=== PATIENT | male | born 1940 | race Caucasian/White ===

== ENCOUNTER 2019-04-27 10:44 | Outpatient (CLI) | payer MEDICARE, SELFPAY ==
--- NOTE | ~2019-04-27 | US_ITS ---
US venous doppler [facility] DATE: 04/27/2019 15:53 INDICATION: Swelling of the lower extremities. Shortness of breath. TECHNIQUE: Real-time and color flow imaging and Doppler analysis of the veins of the lower extremitie s COMPARISON: None FINDINGS: The greater saphenous veins are patent. There is spontaneous and phasic flow and normal aug mentation and color flow signal and normal compression of the deep veins of both lower extremities. IMPRESSION: No evidence of deep venous thrombosis of the lower extremities Reviewed, dictated and finalized at Location A. Reviewed, dictated and finalized at location B.
[2019-04-27 11:37] LABS: Basophils Absolute Auto 0.1 K/mm3 (0.0-0.1); Basophils Percent Auto 1.2 % (0.2-1.2); Eosinophils Absolute Auto 0.1 K/mm3 (0-0.3); Eosinophils Percent Auto 1.2 % (0-4.4); Hematocrit 22.9 % (42.0-52.0); Hemoglobin 7.4 g/dL (14.0-18.0); Immature Granulocyte Absolute 0.03 K/mm3 (0.00-0.031); Immature Granulocyte Percent A 0.4 % (0-0.5); Lymphocytes Absolute Auto 1.02 K/mm3 (0.9-3.2); Lymphocytes Percent Auto 12.2 % (18.3-44.2); Mean Corpuscular HGB Conc 32.3 g/dl (32-36); Mean Corpuscular Hemoglobin 31.1 pg (26-34); Mean Corpuscular Volume 96.2 fl (80-100); Mean Platelet Volume 9.4 fl (7.4-10.4); Monocytes Absolute Auto 0.7 K/mm3 (0.1-0.6); Monocytes Percent Auto 8.7 % (2.6-8.5); Neutrophils Absolute Auto 6.4 K/mm3 (1.3-6.7); Neutrophils Percent Auto 76.3 % (45.5-73.1); Platelet Count Result 280 k/mm3 (150-375); Red Blood Count 2.38 M/mm3 (4.6-6.20); Red Cell Distribution Width 13.7 % (11.5-14.5); White Blood Count 8.4 K/mm3 (4.5-10.0)
[2019-04-27 11:49] LABS: Alanine Aminotransferase 20 U/L (4-50); Albumin Level 3.1 g/dL (3.5-5.1); Alkaline Phosphatase 65 U/L (38-126); Aspartate Amino Transferase 22 U/L (17-59); Bilirubin,Total 0.4 mg/dL (0.2-1.3); Blood Urea Nitrogen 53 mg/dL (9-20); Calcium 7.8 mg/dL (8.4-10.2); Carbon Dioxide 22 mmol/L (22-30); Chloride 104 mmol/L (98-107); Estimated Glomerular Filt Rate 20; Glucose 125 mg/dL (75-110); Potassium 4.6 mmol/L (3.4-5.0); Sodium 135 mmol/L (137-145)
[2019-04-27 11:50] LABS: D Dimer 3.35 ug/mL (<0.48)
== END 2019-04-27 10:45 | disposition home or self-care (01) ==
PROVIDERS: PCP Physician Assistant; Visit Provider Physician Assistant
DX: M79.89 Other specified soft tissue disorders (principal); I10 Essential (primary) hypertension; D64.9 Anemia, unspecified; K92.2 Gastrointestinal hemorrhage, unspecified
CPT/HCPCS: 36415; 80053; 85025; 85380; 93970

== ENCOUNTER 2019-04-30 10:39 | Outpatient (CLI) | payer MEDICARE, SELFPAY ==
[2019-04-30 10:55] LABS: Basophils Absolute Auto 0.1 K/mm3 (0.0-0.1); Basophils Percent Auto 1.2 % (0.2-1.2); Eosinophils Absolute Auto 0.2 K/mm3 (0-0.3); Eosinophils Percent Auto 2.9 % (0-4.4); Hematocrit 21.9 % (42.0-52.0); Immature Granulocyte Absolute 0.02 K/mm3 (0.00-0.031); Immature Granulocyte Percent A 0.3 % (0-0.5); Lymphocytes Absolute Auto 0.83 K/mm3 (0.9-3.2); Lymphocytes Percent Auto 12.5 % (18.3-44.2); Mean Corpuscular HGB Conc 31.5 g/dl (32-36); Mean Corpuscular Hemoglobin 30.9 pg (26-34); Mean Corpuscular Volume 98.2 fl (80-100); Mean Platelet Volume 9.2 fl (7.4-10.4); Monocytes Absolute Auto 0.5 K/mm3 (0.1-0.6); Monocytes Percent Auto 8.1 % (2.6-8.5); Platelet Count Result 198 k/mm3 (150-375); Red Blood Count 2.23 M/mm3 (4.6-6.20); Red Cell Distribution Width 13.8 % (11.5-14.5); White Blood Count 6.7 K/mm3 (4.5-10.0)
[2019-04-30 11:06] LABS: Hemoglobin 6.9 g/dL (14.0-18.0)
[2019-04-30 11:08] LABS: Alanine Aminotransferase 15 U/L (4-50); Albumin Level 3.2 g/dL (3.5-5.1); Alkaline Phosphatase 57 U/L (38-126); Aspartate Amino Transferase 20 U/L (17-59); Bilirubin,Total 0.3 mg/dL (0.2-1.3); Blood Urea Nitrogen 43 mg/dL (9-20); Calcium 8.3 mg/dL (8.4-10.2); Carbon Dioxide 23 mmol/L (22-30); Chloride 104 mmol/L (98-107); Estimated Glomerular Filt Rate 21; Glucose 146 mg/dL (75-110); Potassium 4.8 mmol/L (3.4-5.0); Sodium 132 mmol/L (137-145)
== END 2019-04-30 10:40 | disposition home or self-care (01) ==
PROVIDERS: PCP Family Medicine; Visit Provider Physician Assistant
DX: D64.9 Anemia, unspecified (principal); I10 Essential (primary) hypertension; N17.9 Acute kidney failure, unspecified
CPT/HCPCS: 36415; 80053; 85025

== ENCOUNTER 2019-06-21 11:28 | Outpatient (CLI) | payer MEDICARE, SELFPAY ==
--- NOTE | ~2019-06-21 | XR_ITS ---
XR chest 2V DATE: 06/21/2019 12:07 INDICATION: Pneumonia TECHNIQUE: PA and lateral views COMPARISON: None FINDINGS: Right shoulder arthroplasty. Normal heart size. There is aortic calcification and mild tortuosity. No hilar or mediastinal enlarge ment. No pulmonary infiltrate or consolidation, pleural effusion or pulmonary vascular congestion or pneumo thorax. Scoliosis and degenerative spurring of the thoracic spine. IMPRESSION: No active cardiopulmonary disease Aortic atherosclerosis Reviewed, dictated and finalized at location A.
[2019-06-21 12:01] LABS: Basophils Absolute Auto 0.1 K/mm3 (0.0-0.1); Eosinophils Absolute Auto 0.4 K/mm3 (0-0.3); Eosinophils Percent Auto 5.2 % (0-4.4); Hemoglobin 8.8 g/dL (14.0-18.0); Immature Granulocyte Absolute 0.02 K/mm3 (0.00-0.031); Immature Granulocyte Percent A 0.3 % (0-0.5); Lymphocytes Absolute Auto 1.12 K/mm3 (0.9-3.2); Lymphocytes Percent Auto 15.4 % (18.3-44.2); Mean Corpuscular HGB Conc 33.8 g/dl (32-36); Mean Corpuscular Volume 97.4 fl (80-100); Mean Platelet Volume 9.1 fl (7.4-10.4); Monocytes Absolute Auto 0.7 K/mm3 (0.1-0.6); Monocytes Percent Auto 9.2 % (2.6-8.5); Neutrophils Percent Auto 68.9 % (45.5-73.1); Platelet Count Result 147 k/mm3 (150-375); Red Blood Count 2.67 M/mm3 (4.6-6.20); Red Cell Distribution Width 13.2 % (11.5-14.5); White Blood Count 7.3 K/mm3 (4.5-10.0)
[2019-06-21 12:19] LABS: Alanine Aminotransferase 40 U/L (4-50); Albumin Level 4.1 g/dL (3.5-5.1); Alkaline Phosphatase 51 U/L (38-126); Aspartate Amino Transferase 30 U/L (17-59); Bilirubin,Total 0.3 mg/dL (0.2-1.3); Blood Urea Nitrogen 46 mg/dL (9-20); Calcium 8.5 mg/dL (8.4-10.2); Carbon Dioxide 23 mmol/L (22-30); Chloride 107 mmol/L (98-107); Estimated Glomerular Filt Rate 19; Glucose 113 mg/dL (75-110); Potassium 4.4 mmol/L (3.4-5.0); Sodium 140 mmol/L (137-145)
[2019-06-21 13:45] LABS: Iron 86 ug/dL (49-181)
[2019-06-21 14:02] LABS: Hemoglobin A1C 5.6 % (<5.7); Percent Iron Saturation 32 % (20-50)
== END 2019-06-21 11:29 | disposition home or self-care (01) ==
LOC: ANHLAB 11:31
PROVIDERS: PCP Family Medicine; Visit Provider Physician Assistant
DX: D50.9 Iron deficiency anemia, unspecified (principal); E11.29 Type 2 diabetes mellitus with other diabetic kidney complication; E11.65 Type 2 diabetes mellitus with hyperglycemia; I12.9 Hypertensive chronic kidney disease with stage 1 through stage 4 chronic kidney disease, or unspecified chronic kidney disease; N18.3 Chronic kidney disease, stage 3 (moderate); J18.9 Pneumonia, unspecified organism; I70.0 Atherosclerosis of aorta
CPT/HCPCS: 36415; 71046; 80053; 82728; 83036; 83540; 83550; 85025

== ENCOUNTER 2019-07-09 08:37 | Outpatient (CLI) | payer MEDICARE, SELFPAY ==
--- NOTE | 2019-07-10 18:36 | WPDPFTINT ---
PFT Interpretation PFT Interpretation: DOS: 07/09/2019 REQUESTING: Santi Roy MD REASON FOR TESTING: dyspnea, cough PULMONARY FUNCTION TESTS Results are reliable and reproducible. Spirometry: FEV1 39%, severely reduced. FVC is 41%, severely reduced. FEV1% is decreased consistent with airflow obstruction. After bronchodilator there is an 18% increase in the FEV1 however the absolute amount of increase is less than 200 ml. Lung volumes: TLC decreased at 75%. Slow vital capacity is larger than forced vital capacity, consistent with dynamic airway collapse. Increased RV/TLC ratio 57% consistent with severe air trapping. Airway resistance is increased 514%. Diffusion: DLCO moderately decreased 56%. Flow volume loop: Restrictive and obstructive features. IMPRESSION: Mixed mild restrictive and severe obstructive processes, severe air trapping, increase airway resistance and moderate diffusion impairment. Lack of response to bronchodilator should not preclude use if clinically indicated. Loreto Christensen MD
== END 2019-07-09 08:38 | disposition home or self-care (01) ==
LOC: ANHPFT 08:40
PROVIDERS: PCP Family Medicine; Visit Provider Family Medicine
DX: R05 Cough (principal); R06.09 Other forms of dyspnea; Z87.891 Personal history of nicotine dependence
CPT/HCPCS: 94060; 94726; 94729

== ENCOUNTER 2019-10-24 10:43 | Outpatient (CLI) | payer MEDICARE, SELFPAY ==
[2019-10-24 11:22] LABS: Basophils Percent Auto 0.6 % (0.2-1.2); Eosinophils Absolute Auto 0.3 K/mm3 (0-0.3); Eosinophils Percent Auto 4.7 % (0-4.4); Hematocrit 24.6 % (42.0-52.0); Hemoglobin 8.5 g/dL (14.0-18.0); Immature Granulocyte Absolute 0.02 K/mm3 (0.00-0.031); Immature Granulocyte Percent A 0.3 % (0-0.5); Lymphocytes Absolute Auto 0.98 K/mm3 (0.9-3.2); Lymphocytes Percent Auto 15.3 % (18.3-44.2); Mean Corpuscular HGB Conc 34.6 g/dl (32-36); Mean Corpuscular Hemoglobin 33.3 pg (26-34); Mean Corpuscular Volume 96.5 fl (80-100); Mean Platelet Volume 8.8 fl (7.4-10.4); Monocytes Absolute Auto 0.7 K/mm3 (0.1-0.6); Monocytes Percent Auto 10.6 % (2.6-8.5); Neutrophils Absolute Auto 4.4 K/mm3 (1.3-6.7); Neutrophils Percent Auto 68.5 % (45.5-73.1); Platelet Count Result 140 k/mm3 (150-375); Red Blood Count 2.55 M/mm3 (4.6-6.20); Red Cell Distribution Width 11.9 % (11.5-14.5); White Blood Count 6.4 K/mm3 (4.5-10.0)
[2019-10-24 11:30] LABS: Hemoglobin A1C 6.2 % (<5.7)
[2019-10-24 11:36] LABS: Alanine Aminotransferase 22 U/L (4-50); Albumin Level 4.2 g/dL (3.5-5.1); Alkaline Phosphatase 55 U/L (38-126); Anion Gap 8 mmol/L (8-16); Aspartate Amino Transferase 21 U/L (17-59); Bilirubin,Total 0.5 mg/dL (0.2-1.3); Blood Urea Nitrogen 55 mg/dL (9-20); Calcium 8.6 mg/dL (8.4-10.2); Carbon Dioxide 22 mmol/L (22-30); Chloride 107 mmol/L (98-107); Estimated Glomerular Filt Rate 21; Glucose 111 mg/dL (75-110); Potassium 4.9 mmol/L (3.4-5.0); Sodium 137 mmol/L (137-145)
[2019-10-24 11:46] LABS: Iron 94 ug/dL (49-181)
[2019-10-24 11:55] LABS: Percent Iron Saturation 34 % (20-50)
== END 2019-10-24 10:44 | disposition home or self-care (01) ==
PROVIDERS: PCP Family Medicine; Visit Provider Physician Assistant
DX: D50.9 Iron deficiency anemia, unspecified (principal); E11.65 Type 2 diabetes mellitus with hyperglycemia; I12.9 Hypertensive chronic kidney disease with stage 1 through stage 4 chronic kidney disease, or unspecified chronic kidney disease; N18.3 Chronic kidney disease, stage 3 (moderate)
CPT/HCPCS: 36415; 80053; 82728; 83036; 83540; 83550; 85025

== ENCOUNTER 2019-12-08 01:43 | Outpatient (CLI) | payer MEDICARE, SELFPAY ==
[2019-12-08 22:13] LABS: SARS-CoV-2 RNA PCR Negative
== END 2019-12-08 01:44 | disposition home or self-care (01) ==
LOC: ANHCOVIDDT 01:44
PROVIDERS: PCP Family Medicine; Visit Provider Internal Medicine Gastroenterology
DX: Z01.812 Encounter for preprocedural laboratory examination (principal); Z20.828 Contact with and (suspected) exposure to other viral communicable diseases
CPT/HCPCS: 87635; C9803; U0003

== ENCOUNTER 2019-12-11 00:42 | Day surgery (SDC) | payer MEDICARE, SELFPAY ==
[2019-12-04 14:04] VITALS: BMI 35.9
[2019-12-11 13:08] VITALS: BP 166/62; PULSE 78; RESP 22; TEMP 36.7; O2SAT 98; BMI 34.9
--- NOTE | 2019-12-11 13:19 | WPDANESEPPF ---
Anes - Initial Pre Proc Eval Procedure: Operation Date: 12/11/19 13:45 Proposed Procedures p Esophagogastroduodenoscopy & Colonoscopy - Aaron Lopez MD Date/Time: 12/11/19 13:19 Surgeon: Aaron Lopez MD Pre Op Diagnosis: Anemia, Ulcer Patient Data Age: 79 Gender: M Height: 1.78 m Weight: 110.5 kg Last Vital Signs Temp 36.7 C 12/11/19 13:08 Pulse 78 12/11/19 13:08 Resp 22 H 12/11/19 13:08 BP 166/62 H 12/11/19 13:08 Pulse Ox 98 12/11/19 13:08 Allergies Allergy/AdvReac Type Severity Reaction Status Date / Time No Known Allergies Allergy Verified 12/11/19 13:06 Home Medications Medication Instructions Recorded Confirmed Type amlodipine 5 mg tablet 10 mg PO DAILY 02/13/19 12/04/19 History carvedilol 12.5 mg tablet 12.5 mg PO Q12H 04/27/19 12/04/19 History furosemide 20 mg tablet 20 mg PO QAM 04/27/19 12/04/19 History latanoprost 0.005 % eye drops 1 drop EACH EYE QPM 04/27/19 12/04/19 History atorvastatin 20 mg tablet 20 mg PO DAILY #90 tablet 06/18/19 12/04/19 Rx clonidine HCl 0.1 mg tablet 0.1 mg PO BID #180 tablet 06/18/19 12/04/19 Rx insulin glargine 100 unit/mL (3 10 unit SUB-Q .qhs #15 ml 07/11/19 12/04/19 Rx mL) subcutaneous pen pen needle, diabetic, safety 30 #100 each 07/11/19 12/04/19 Rx gauge x 5/16 fluticasone fur. 100 mcg-umeclid 1 inhalation INHALATION DAILY #90 08/01/19 12/04/19 Rx 62.5 mcg-vilant 25 mcg each inhalat.powder chlorthalidone 25 mg tablet 25 mg PO DAILY #90 tablet 09/24/19 12/04/19 Rx pantoprazole 40 mg tablet,delayed 40 mg PO BID #180 tablet 10/08/19 12/04/19 Rx release metolazone 5 mg tablet 5 mg PO DAILY #90 tablet 10/24/19 12/04/19 Rx albuterol sulfate 90 mcg/actuation 1 inhalation INHALATION Q4-6H PRN 10/30/19 12/04/19 Rx aerosol inhaler #18 gm tramadol 37.5 mg-acetaminophen 325 1 tablet PO Q6H PRN #360 tablet 11/16/19 12/04/19 Rx mg tablet losartan 100 mg tablet 100 mg PO DAILY #90 tablet 11/20/19 12/04/19 Rx peg 3350-electrolytes 236 240 ml PO Q10M #4000 ml 11/26/19 12/04/19 Rx gram-22.74 gram-6.74 gram-5.86 gram solution alprazolam [Xanax] 0.5 mg PO BID PRN 12/11/19 12/04/19 History Patient hx anesthesia problems: none Family hx anesthesia problems: none PMFSH Past Medical History Medical History (Updated 12/11/19 @ 13:22 by Daniel Concepcion MD) Adenomatous colon polyp Anemia Anxiety Chronic obstructive pulmonary disease CKD (chronic kidney disease) stage 3, GFR 30-59 ml/min DM renal manif type II, uncontrolled Hyperlipidemia BETTE (iron deficiency anemia) Obese SALOME (obstructive sleep apnea) Paroxysmal A-fib Peptic ulcer disease Primary osteoarthritis, unspecified site Type 2 diabetes mellitus with hyperglycemia, without long-term current use of insulin Family History Family History Mother Diabetes mellitus Family history of cardiovascular disease Father Family history of lung cancer Social History Social History Social History: Smoking packs per day: 1.5 Smoking cigarettes per day: 30.0 Years smoked: 50 Smoking pack-years: 75.00 Smoking status: Former smoker Tobacco type: cigarettes Second hand tobacco smoke exposure: No Smoking end date: 02/08/96 Alcohol intake: unknown Substance use: never Substance use type: does not use Living arrangements: with family Gender identity (if verbalized by the patient): Male Spiritual care concerns: No Anes - Eval Final PreProcedure Day of Procedure 12/11/19 13:19 Patient weight: obese Heart: regular rate and rhythm Lungs: clear to auscultation and normal air movement Airway: Mallampati scale class II Neurological: alert and oriented Last oral intake: >/= 8 hours ASA classification: III Emergent: no Anesthetic plan: proceed Anesthesia type and monitoring: general GIVS Informed Consent: Th
[2019-12-11] MEDS: LACTATED RINGERS 1,000 ML 150 ML IV CONT (13:25)
[2019-12-11 13:35] LABS: Glucose Point of Care 117 (65-105)
--- NOTE | 2019-12-11 13:58 | PM.HPGS ---
History of Present Illness History of Present Illness Consent: Risks, benefits, and alternatives have been discussed and questions answered. Patient agrees to proceed with procedure. Chief complaint: Anemia, Ulcer Narrative: Leobardo Reyes is a 79 year old male had gib 04/2019 due to duodenal ulcer treated endoscopically, h/o colon polyps 2017. He still has anemia but no overt gib Review of Systems Constitutional: Constitutional: Denies headache(s) and Denies weakness Eyes: Eyes: Denies blurry vision ENT: Reports Normal hearing present, Denies headache(s) and Denies neck pain Cardiovascular: Cardiovascular: Denies chest pain and Denies dyspnea Respiratory: Respiratory: Denies dyspnea Gastrointestinal: Gastrointestinal: Reports no additional gastrointestinal complaints Genitourinary: Genitourinary: Denies dysuria Musculoskeletal: Musculoskeletal: Denies neck pain Integumentary/Breasts: Skin/Breast: Denies dry skin Neurologic: Reports Normal hearing present, Denies headache(s) and Denies weakness Psychiatric: Psychiatric: Denies anxiety Endocrine: Endocrine: Denies change in body appearance Hematologic/Lymphatic: Hematologic/Lymphatic: Denies easy bleeding Allergic/Immunologic: Allergic/Immunologic: Denies urticaria PMFSH Past Medical History Medical History (Updated 12/11/19 @ 13:22 by Daniel Concepcion MD) Adenomatous colon polyp Anemia Anxiety Chronic obstructive pulmonary disease CKD (chronic kidney disease) stage 3, GFR 30-59 ml/min DM renal manif type II, uncontrolled Hyperlipidemia BETTE (iron deficiency anemia) Obese SALOME (obstructive sleep apnea) Paroxysmal A-fib Peptic ulcer disease Primary osteoarthritis, unspecified site Type 2 diabetes mellitus with hyperglycemia, without long-term current use of insulin Family History Family History Mother Diabetes mellitus Family history of cardiovascular disease Father Family history of lung cancer Social History Social History Social History: Smoking packs per day: 1.5 Smoking cigarettes per day: 30.0 Years smoked: 50 Smoking pack-years: 75.00 Smoking status: Former smoker Tobacco type: cigarettes Second hand tobacco smoke exposure: No Smoking end date: 02/08/96 Alcohol intake: unknown Substance use: never Substance use type: does not use Living arrangements: with family Gender identity (if verbalized by the patient): Male Spiritual care concerns: No Meds Home Medications and Allergies Home Medications Medication Instructions Recorded Confirmed Type amlodipine 5 mg tablet 10 mg PO DAILY 02/13/19 12/04/19 History carvedilol 12.5 mg tablet 12.5 mg PO Q12H 04/27/19 12/04/19 History furosemide 20 mg tablet 20 mg PO QAM 04/27/19 12/04/19 History latanoprost 0.005 % eye drops 1 drop EACH EYE QPM 04/27/19 12/04/19 History atorvastatin 20 mg tablet 20 mg PO DAILY #90 tablet 06/18/19 12/04/19 Rx clonidine HCl 0.1 mg tablet 0.1 mg PO BID #180 tablet 06/18/19 12/04/19 Rx insulin glargine 100 unit/mL (3 10 unit SUB-Q .qhs #15 ml 07/11/19 12/04/19 Rx mL) subcutaneous pen pen needle, diabetic, safety 30 #100 each 07/11/19 12/04/19 Rx gauge x 5/16 fluticasone fur. 100 mcg-umeclid 1 inhalation INHALATION DAILY #90 08/01/19 12/04/19 Rx 62.5 mcg-vilant 25 mcg each inhalat.powder chlorthalidone 25 mg tablet 25 mg PO DAILY #90 tablet 09/24/19 12/04/19 Rx pantoprazole 40 mg tablet,delayed 40 mg PO BID #180 tablet 10/08/19 12/04/19 Rx release metolazone 5 mg tablet 5 mg PO DAILY #90 tablet 10/24/19 12/04/19 Rx albuterol sulfate 90 mcg/actuation 1 inhalation INHALATION Q4-6H PRN 10/30/19 12/04/19 Rx aerosol inhaler #18 gm tramadol 37.5 mg-acetaminophen 325 1 tablet PO Q6H PRN #360 tablet 11/16/19 12/04/19 Rx mg tablet losartan 100 mg tablet 100 mg PO DAILY #90 tablet 11/20/19 12/04/19 Rx peg [id number]
[2019-12-11 14:30] VITALS: BP 121/47; PULSE 69; RESP 19; O2SAT 99
[2019-12-11 14:40] VITALS: BP 124/58; PULSE 65; RESP 18; O2SAT 100
[2019-12-11 14:43] LABS: Glucose Point of Care 104 (65-105)
[2019-12-11 14:50] VITALS: BP 150/57; PULSE 67; RESP 16; O2SAT 100
== END 2019-12-11 15:24 | disposition home or self-care (01) ==
PROVIDERS: PCP Family Medicine; Visit Provider Internal Medicine Gastroenterology
PROC: 0DJ08ZZ Inspection of Upper Intestinal Tract, Via Natural or Artificial Opening Endoscopic (ICD-10-PCS; CPT 43235; principal; 2019-12-11 13:45)
DX: D50.9 Iron deficiency anemia, unspecified (principal); D12.2 Benign neoplasm of ascending colon; K57.30 Diverticulosis of large intestine without perforation or abscess without bleeding; K29.70 Gastritis, unspecified, without bleeding; E11.22 Type 2 diabetes mellitus with diabetic chronic kidney disease; N18.30 Chronic kidney disease, stage 3 unspecified; E78.5 Hyperlipidemia, unspecified; G47.33 Obstructive sleep apnea (adult) (pediatric); I48.0 Paroxysmal atrial fibrillation; Z87.11 Personal history of peptic ulcer disease; F41.9 Anxiety disorder, unspecified; J44.9 Chronic obstructive pulmonary disease, unspecified; Z79.4 Long term (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 of insulin; Z87.891 Personal history of nicotine dependence; E66.9 Obesity, unspecified; Z68.35 Body mass index [BMI] 35.0-35.9, adult
CPT/HCPCS: 45381; 45385; 43239; 88305; 99212; G0463; J2001; J2704; J7120

== ENCOUNTER 2020-02-21 11:53 | Outpatient (CLI) | payer MEDICARE, SELFPAY ==
[2020-02-21 12:45] LABS: Basophils Absolute Auto 0.1 K/mm3 (0.0-0.1); Eosinophils Absolute Auto 0.2 K/mm3 (0-0.3); Eosinophils Percent Auto 2.9 % (0-4.4); Hematocrit 27.5 % (42.0-52.0); Hemoglobin 9.4 g/dL (14.0-18.0); Immature Granulocyte Absolute 0.03 K/mm3 (0.00-0.031); Immature Granulocyte Percent A 0.4 % (0-0.5); Lymphocytes Absolute Auto 0.93 K/mm3 (0.9-3.2); Lymphocytes Percent Auto 12.7 % (18.3-44.2); Mean Corpuscular HGB Conc 34.2 g/dl (32-36); Mean Corpuscular Hemoglobin 34.4 pg (26-34); Mean Corpuscular Volume 100.7 fl (80-100); Mean Platelet Volume 9.3 fl (7.4-10.4); Monocytes Absolute Auto 0.6 K/mm3 (0.1-0.6); Monocytes Percent Auto 8.4 % (2.6-8.5); Neutrophils Absolute Auto 5.5 K/mm3 (1.3-6.7); Neutrophils Percent Auto 74.6 % (45.5-73.1); Platelet Count Result 193 k/mm3 (150-375); Red Blood Count 2.73 M/mm3 (4.6-6.20); Red Cell Distribution Width 13.6 % (11.5-14.5); White Blood Count 7.3 K/mm3 (4.5-10.0)
[2020-02-21 12:56] LABS: Hemoglobin A1C 6.5 % (<5.7)
[2020-02-21 12:58] LABS: Alanine Aminotransferase 21 U/L (4-50); Alkaline Phosphatase 60 U/L (38-126); Anion Gap 10 mmol/L (8-16); Aspartate Amino Transferase 21 U/L (17-59); Bilirubin,Total 0.5 mg/dL (0.2-1.3); Blood Urea Nitrogen 41 mg/dL (9-20); Calcium 8.6 mg/dL (8.4-10.2); Carbon Dioxide 23 mmol/L (22-30); Chloride 107 mmol/L (98-107); Estimated Glomerular Filt Rate 20; Glucose 153 mg/dL (75-110); Potassium 4.4 mmol/L (3.4-5.0); Sodium 140 mmol/L (137-145)
== END 2020-02-21 11:54 | disposition home or self-care (01) ==
PROVIDERS: PCP Family Medicine; Visit Provider Physician Assistant
DX: D50.9 Iron deficiency anemia, unspecified (principal); E11.29 Type 2 diabetes mellitus with other diabetic kidney complication; E11.65 Type 2 diabetes mellitus with hyperglycemia; N18.30 Chronic kidney disease, stage 3 unspecified
CPT/HCPCS: 36415; 80053; 83036; 85025

== ENCOUNTER 2020-02-29 15:29 | Outpatient (CLI) | payer MEDICARE, SELFPAY ==
[2020-02-29 16:15] LABS: Hematocrit 28.4 % (42.0-52.0); Hemoglobin 9.5 g/dL (14.0-18.0); Mean Corpuscular HGB Conc 33.5 g/dl (32-36); Mean Corpuscular Hemoglobin 34.5 pg (26-34); Mean Corpuscular Volume 103.3 fl (80-100); Mean Platelet Volume 9.2 fl (7.4-10.4); Platelet Count Result 169 k/mm3 (150-375); Red Blood Count 2.75 M/mm3 (4.6-6.20); Red Cell Distribution Width 13.2 % (11.5-14.5); White Blood Count 6.6 K/mm3 (4.5-10.0)
== END 2020-02-29 15:30 | disposition home or self-care (01) ==
LOC: ANHLAB 15:31
PROVIDERS: PCP Family Medicine; Referring Provider Internal Medicine Nephrology; Visit Provider Nurse Practitioner Adult Health
DX: Z87.19 Personal history of other diseases of the digestive system (principal)
CPT/HCPCS: 36415; 85027

== ENCOUNTER → 2020-03-03 15:29 | Outpatient (CLI) | payer MEDICARE, SELFPAY ==
[2020-03-03 18:26] LABS: SARS-CoV-2 RNA PCR Negative
== END ==
PROVIDERS: PCP Family Medicine; Visit Provider Internal Medicine Cardiovascular Disease
DX: Z01.812 Encounter for preprocedural laboratory examination (principal); Z20.822 Contact with and (suspected) exposure to COVID-19
CPT/HCPCS: C9803; U0003; U0005

== ENCOUNTER 2020-03-05 12:01 | Outpatient (CLI) | payer MEDICARE, SELFPAY ==
--- NOTE | ~2020-03-05 | US_ITS ---
EXAMINATION: US renal BI EXAM DATE: 03/05/2020 13:22 INDICATION: Chronic kidney disease. TECHNIQUE: Multiple grayscale and Doppler images of the kidneys were obtained (by a technologist who performed the scan) and subsequently reviewed. There is no prior study for comparison. FINDINGS: There is bilateral renal cortical thinning. Right kidney: There is normal contour and echogenicity. It measures 11.1 x 5.8 x 6.0 centimeters. T here are no focal renal lesions identified. There is no hydronephrosis. Left kidney: There is normal contour and echogenicity. It measures 11.2 x 5.1 x 5.7 centimeters. Th ere are no focal renal lesions identified. There is no hydronephrosis. Bladder unremarkable. Prostate is normal in size. IMPRESSION: Bilateral renal cortical thinning. Reviewed, dictated and finalized at location A. PROCESS OPERATOR
[2020-03-05 12:43] LABS: Hematocrit 29.9 % (42.0-52.0); Hemoglobin 9.9 g/dL (14.0-18.0); Mean Corpuscular HGB Conc 33.1 g/dl (32-36); Mean Corpuscular Hemoglobin 34.1 pg (26-34); Mean Corpuscular Volume 103.1 fl (80-100); Mean Platelet Volume 9.5 fl (7.4-10.4); Platelet Count Result 166 k/mm3 (150-375); Red Cell Distribution Width 13.1 % (11.5-14.5); White Blood Count 9.1 K/mm3 (4.5-10.0)
[2020-03-05 13:02] LABS: Add Urine Microscopic? NO; Appearance Urine Clear (Clear); Bilirubin Urine Negative (Negative); Blood Urine Negative (Negative); Color Urine Yellow (Yellow); Glucose Urine UA Negative (Negative); Ketones Urine Negative (Negative); Leukocyte Esterase Ur Negative LEU/UL (Negative); Nitrate Urine Negative (Negative); Protein Urine Negative (Negative); Specific Grav Ur 1.012 (1.001-1.035); Urobilinogen Urine Negative mg/dL (<2.0)
[2020-03-05 13:35] LABS: Albumin Level 4.1 g/dL (3.5-5.1); Anion Gap 9 mmol/L (8-16); Blood Urea Nitrogen 59 mg/dL (9-20); Calcium 8.5 mg/dL (8.4-10.2); Carbon Dioxide 27 mmol/L (22-30); Chloride 102 mmol/L (98-107); Estimated Glomerular Filt Rate 16; Glucose 171 mg/dL (75-110); Phosphorus 4.6 mg/dL (2.5-4.5); Potassium 5.1 mmol/L (3.4-5.0); Sodium 138 mmol/L (137-145); Uric Acid 11.9 mg/dL (3.5-8.5)
[2020-03-05 13:43] LABS: Parathyroid Intact 367.9 pg/mL (7.5-53.5)
[2020-03-05 14:33] LABS: Creatinine Urine 75.1 mg/dL
[2020-03-05 14:38] LABS: MALB Creatinine Ratio 62.1 mg/g (0-30); Microalbumin Urine Random 46.6 mg/L (0-16.7)
[2020-03-10 20:59] LABS: Alpha 1 Globulin 0.3 g/dL (0.2-0.3); Alpha 2 Globulin 0.8 g/dL (0.5-0.9); Beta 1 Globulin 0.4 g/dL (0.4-0.6); Gamma Globulin 0.9 g/dL (0.8-1.7); Protein, Total 6.7 g/dL (6.1-8.1)
== END 2020-03-05 12:02 | disposition home or self-care (01) ==
PROVIDERS: PCP Family Medicine; Visit Provider Internal Medicine Nephrology
DX: N18.4 Chronic kidney disease, stage 4 (severe) (principal)
CPT/HCPCS: 36415; 76775; 80069; 81003; 82043; 83970; 84155; 84165; 84550; 85027; 86334

== ENCOUNTER 2020-03-06 00:59 | Day surgery (SDC) | payer MEDICARE, SELFPAY ==
[2020-03-05 14:28] VITALS: BMI 37.9
[2020-03-05 14:43] VITALS: BP 100/64; PULSE 100; RESP 15; O2SAT 94
[2020-03-06] VITALS (9 sets, daily range): BP systolic 97–121; BP diastolic 63–97; PULSE 98–131; RESP 10–18; TEMP 36.8; O2SAT 97–98; BMI 37.9
--- NOTE | 2020-03-06 10:00 | ECG_ITS ---
Measurements Intervals [place] Rate: 120 P: DC: 0 QRS: 56 QRSD: 97 T: -4 QT: 323 QTc: 457 Interpretive Statements ATRIAL FIBRILLATION WITH RAPID VENTRICULAR RESPONSE BORDERLINE ST-T WAVE ABNORMALITY- INFERIOR LEADS ABNORMAL ECG Electronically Signed On 03-06-2020 11:45:25 HAND STAPLER by Michael Mccabe D.O.
[2020-03-06 11:28] LABS: Hematocrit 28.7 % (42.0-52.0); Hemoglobin 9.8 g/dL (14.0-18.0); Mean Corpuscular HGB Conc 34.1 g/dl (32-36); Mean Corpuscular Volume 102.5 fl (80-100); Mean Platelet Volume 9.1 fl (7.4-10.4); Platelet Count Result 145 k/mm3 (150-375); Red Cell Distribution Width 13.1 % (11.5-14.5); White Blood Count 8.7 K/mm3 (4.5-10.0)
[2020-03-06 11:41] LABS: Anion Gap 6 mmol/L (8-16); Blood Urea Nitrogen 58 mg/dL (9-20); Calcium 8.8 mg/dL (8.4-10.2); Carbon Dioxide 24 mmol/L (22-30); Chloride 108 mmol/L (98-107); Estimated CRCL calculation 19 ml/min; Estimated Glomerular Filt Rate 16; Glucose 89 mg/dL (75-110); Magnesium 1.7 mg/dL (1.6-2.3); Potassium 4.6 mmol/L (3.4-5.0); Sodium 138 mmol/L (137-145)
--- NOTE | 2020-03-06 11:45 | WPDMODSED ---
Moderate Sedation Note-Pt Data Patient Data Diagnosis: Atrial fibrillation Present Complaint: Atrial fibrillation Procedure to be performed/Plan: 1. Multiplanar transesophageal echocardiography with color-flow pulse-wave Doppler 2. Moderate sedation 3. Electrical cardioversion Allergies Allergy/AdvReac Type Severity Reaction Status Date / Time No Known Allergies Allergy Verified 03/05/20 14:18 Home Medications Medication Instructions Recorded Confirmed Type furosemide 20 mg tablet 20 mg PO QAM 04/27/19 03/05/20 History latanoprost 0.005 % eye drops 1 drop EACH EYE QPM 04/27/19 03/05/20 History atorvastatin 20 mg tablet 20 mg PO DAILY #90 tablet 06/18/19 03/05/20 Rx clonidine HCl 0.1 mg tablet 0.1 mg PO BID #180 tablet 06/18/19 03/05/20 Rx insulin glargine 100 unit/mL (3 10 unit SUB-Q .qhs #15 ml 07/11/19 03/05/20 Rx mL) subcutaneous pen pen needle, diabetic, safety 30 #100 each 07/11/19 03/05/20 Rx gauge x 5/16 fluticasone fur. 100 mcg-umeclid 1 inhalation INHALATION DAILY #90 08/01/19 03/05/20 Rx 62.5 mcg-vilant 25 mcg each inhalat.powder chlorthalidone 25 mg tablet 25 mg PO DAILY #90 tablet 09/24/19 03/05/20 Rx metolazone 5 mg tablet 5 mg PO DAILY #90 tablet 10/24/19 03/05/20 Rx albuterol sulfate 90 mcg/actuation 1 inhalation INHALATION Q4-6H PRN 10/30/19 03/05/20 Rx aerosol inhaler #18 gm losartan 100 mg tablet 100 mg PO DAILY #90 tablet 11/20/19 03/05/20 Rx pantoprazole 40 mg tablet,delayed 40 mg PO BID #180 tablet 12/26/19 03/05/20 Rx release amlodipine 10 mg tablet 10 mg PO DAILY #90 tablet 01/07/20 03/05/20 Rx alprazolam 0.5 mg tablet 0.5 mg PO BID PRN #60 tablet 02/21/20 03/05/20 Rx tramadol 37.5 mg-acetaminophen 325 1 tablet PO Q6H PRN #360 tablet 02/21/20 03/05/20 Rx mg tablet metoprolol succinate 50 mg PO DAILY 03/05/20 03/05/20 History Current Medications: Active Medications Sodium Chloride (Normal Saline Iv) 1,000 mls @ 30 mls/hr IV CONT .Q24H FAISAL Sedation/Anesthesia: No previous sedation/anesthesia problems (including family history). [facility] Past Medical History Medical History Adenomatous colon polyp Anemia Chronic obstructive pulmonary disease CKD (chronic kidney disease) stage 3, GFR 30-59 ml/min DM renal manif type II, uncontrolled Hyperlipidemia BETTE (iron deficiency anemia) Obese SALOME (obstructive sleep apnea) Paroxysmal A-fib Peptic ulcer disease Primary osteoarthritis, unspecified site Type 2 diabetes mellitus with hyperglycemia, without long-term current use of insulin Family History Family History Mother Diabetes mellitus Family history of cardiovascular disease Father Family history of lung cancer Social History Social History Social History: Smoking packs per day: 1.5 Smoking cigarettes per day: 30.0 Years smoked: 50 Smoking pack-years: 75.00 Smoking status: Never smoker Tobacco type: cigarettes Second hand tobacco smoke exposure: No Smoking end date: 02/08/96 Alcohol intake: unknown Substance use: never Substance use type: does not use Living arrangements: with family Gender identity (if verbalized by the patient): Male Spiritual care concerns: No Mod Sed Physical Exam Physical Exam Pre Procedural Exam: Normal: Appearance, Eyes, Ears, Nose, Neck, Throat, Airway, Lungs, Heart Size, Neuro Exam, Abdomen, Extremities and Skin and Variation: Heart Rate (Tachycardic) and Heart Rhythm (Irregularly irregular) Hours since solid foods: 12 Hours since liquid intake: 12 Internal Medicine - PN: Obj Da Vital Signs Vital Signs: Vital Signs - 24 hr 03/06/20 11:00 Temperature 36.8 C Pulse Rate 117 H Respiratory Rate 15 Blood Pressure 102/66 Pulse Oximetry 98 Meds/Results Medications: Active Medications Generic Name Dose Route Start Last Admi
--- NOTE | 2020-03-06 12:24 | WPDTEECHO ---
[facility] TransEsophageal Echocardiogram Date of procedure: 03/06/20 Procedure Type: 1. Multiplanar transesophageal echocardiography with color flow and pulse wave Doppler 2. Moderate sedation Diagnosis: Atrial fibrillation Indications: Atrial fibrillation Image Quality: Good Findings: After discussing the risks, benefits alternatives of the procedure the patient agreeable via verbal and written informed consent. Risks discussed included esophageal rupture perforation, need for emergency surgery, , stroke, bleeding, pain, infection, skin irritation or burn. After establishing continuous telemetry monitoring, pulse oxygenation and serial blood pressure assessments, time-out was taken and the procedure was initiated. Procedure start time 12:00 p.m. Procedure stop time 12:10 p.m. Medications given 4 mg of Versed and 50 mcg of fentanyl given in divided dosages Medications were administered patient was monitored by Diana Law RN Complications: None Blood loss: None Findings: Normal left ventricular size and function ejection fraction 50-55%. LVH is seen. Mild left atrial enlargement. Normal right atrial size. Normal right ventricular size and function. Tricuspid valve appears normal. Mitral valve also appears normal with mild to moderate mitral regurgitation. The aortic valve is trileaflet and is normal with trivial aortic insufficiency. Pulmonic valve is normal. No pericardial effusion. Aortic root is normal in size measuring 3.3 cm. Pulse wave Doppler of the left atrial appendage shows velocities of 75 centimeters/second. At the tip of the left atrial appendage there is a small hypermobility. In some views it does look like a small thrombus with similar echogenicity of the thrombus however cannot exclude a pectinate muscle. Regardless though, decision was made at that point to abort cardioversion and procedure was stopped. Conclusions: 1. Ejection fraction 50-55% with LVH seen 2. Left atrial enlargement 3. Odle-wk-enhbcelm mitral regurgitation 4. Possible left atrial appendage thrombus 5. Moderate sedation Plan: Continue anticoagulation. Will have him continue his current medication regimen without change and I will have him be rescheduled for outpatient elective cardioversion only in 3 weeks.
== END 2020-03-06 13:25 | disposition home or self-care (01) ==
PROVIDERS: PCP Family Medicine; Visit Provider Internal Medicine Cardiovascular Disease
PROC: (CPT 93312; principal; 2020-03-06 11:30)
DX: I48.91 Unspecified atrial fibrillation (principal); I34.0 Nonrheumatic mitral (valve) insufficiency; R93.1 Abnormal findings on diagnostic imaging of heart and coronary circulation; J44.9 Chronic obstructive pulmonary disease, unspecified; E11.22 Type 2 diabetes mellitus with diabetic chronic kidney disease; N18.30 Chronic kidney disease, stage 3 unspecified; E78.5 Hyperlipidemia, unspecified; G47.33 Obstructive sleep apnea (adult) (pediatric); D64.9 Anemia, unspecified; K27.9 Peptic ulcer, site unspecified, unspecified as acute or chronic, without hemorrhage or perforation; E66.9 Obesity, unspecified; Z68.38 Body mass index [BMI] 38.0-38.9, adult; Z79.4 Long term (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 of insulin; Z87.891 Personal history of nicotine dependence
CPT/HCPCS: 36415; 80048; 83735; 85027; 93005; 93312; 93320; 93325; C9803; J2250; J3010; J7030; U0003; U0005

== ENCOUNTER → 2020-03-24 01:52 | Outpatient (CLI) | payer MEDICARE, SELFPAY ==
[2020-03-24 19:35] LABS: SARS-CoV-2 RNA PCR Negative
== END ==
PROVIDERS: PCP Family Medicine; Visit Provider Internal Medicine Cardiovascular Disease
DX: Z01.812 Encounter for preprocedural laboratory examination (principal); Z20.822 Contact with and (suspected) exposure to COVID-19
CPT/HCPCS: C9803; U0003; U0005

== ENCOUNTER 2020-03-27 00:35 | Day surgery (SDC) | payer MEDICARE, SELFPAY ==
[2020-03-26 15:28] VITALS: BMI 36.2
[2020-03-27] VITALS (8 sets, daily range): BP systolic 96–120; BP diastolic 53–77; PULSE 57–107; RESP 14–17; TEMP 36.4; O2SAT 94–100; BMI 36.2
--- NOTE | 2020-03-27 07:00 | ECG_ITS ---
Measurements Intervals [place] Rate: 107 P: [place]: 0 QRS: 48 QRSD: 109 T: -4 QT: 359 QTc: 481 Interpretive Statements ATRIAL FIBRILLATION WITH RAPID VENTRICULAR RESPONSE VENTRICULAR PREMATURE COMPLEX NONSPECIFIC T-WAVE ABNORMALITY- INFERIOR LEADS BASELINE ARTIFACT- V1-V2, V5 ABNORMAL ECG Electronically Signed On 03-27-2020 9:10:10 SENIOR SYSTEM OPERATOR by Michael Mccabe D.O.
--- NOTE | 2020-03-27 08:29 | WPDHPUPDATE1 ---
History and Physical Update Update Date/Time: 03/27/20 08:29 History and Physical has been reviewed, including an updated exam of the patient. There are NO changes in the patient's condition. Risks, benefits, and alternatives have been discussed and questions answered. Patient agrees to proceed with procedure. Subjective: Patient has not missed any doses of Xarelto. He feels okay. Has no chest pain but has some dyspnea with exertion. Mild swelling remains Objective: Cardiovascular: Irregular irregular rhythm Lungs clear to auscultation bilateral Extremities 1+ bilateral lower extremity edema Assessment: Atrial fibrillation Plan: Elective cardioversion Moderate sedation
--- NOTE | 2020-03-27 08:31 | WPDMODSED ---
Moderate Sedation Note-Pt Data Patient Data Diagnosis: Atrial fibrillation Present Complaint: Atrial fibrillation Procedure to be performed/Plan: 1. Elective cardioversion 2. Moderate sedation Allergies Allergy/AdvReac Type Severity Reaction Status Date / Time No Known Allergies Allergy Verified 03/05/20 14:18 Home Medications Medication Instructions Recorded Confirmed Type furosemide 20 mg tablet 20 mg PO QAM 04/27/19 03/05/20 History latanoprost 0.005 % eye drops 1 drop EACH EYE QPM 04/27/19 03/05/20 History atorvastatin 20 mg tablet 20 mg PO DAILY #90 tablet 06/18/19 03/05/20 Rx pen needle, diabetic, safety 30 #100 each 07/11/19 03/05/20 Rx gauge x / fluticasone fur. 100 mcg-umeclid 1 inhalation INHALATION DAILY #90 08/01/19 03/05/20 Rx 62.5 mcg-vilant 25 mcg each inhalat.powder chlorthalidone 25 mg tablet 25 mg PO DAILY #90 tablet 09/24/19 03/05/20 Rx metolazone 5 mg tablet 5 mg PO DAILY #90 tablet 10/24/19 03/05/20 Rx albuterol sulfate 90 mcg/actuation 1 inhalation INHALATION Q4-6H PRN 10/30/19 03/05/20 Rx aerosol inhaler #18 gm losartan 100 mg tablet 100 mg PO DAILY #90 tablet 11/20/19 03/05/20 Rx pantoprazole 40 mg tablet,delayed 40 mg PO BID #180 tablet 12/26/19 03/05/20 Rx release amlodipine 10 mg tablet 10 mg PO DAILY #90 tablet 01/07/20 03/05/20 Rx alprazolam 0.5 mg tablet 0.5 mg PO BID PRN #60 tablet 02/21/20 03/05/20 Rx tramadol 37.5 mg-acetaminophen 325 1 tablet PO Q6H PRN #360 tablet 02/21/20 03/05/20 Rx mg tablet metoprolol succinate 50 mg PO DAILY 03/05/20 03/05/20 History clonidine HCl 0.1 mg tablet 0.1 mg PO BID #180 tablet 03/13/20 Rx insulin glargine 100 unit/mL (3 10 unit SUB-Q .qhs #15 ml 03/14/20 Rx mL) subcutaneous pen Sedation/Anesthesia: No previous sedation/anesthesia problems (including family history). [facility] Past Medical History Medical History Adenomatous colon polyp Anemia Chronic obstructive pulmonary disease CKD (chronic kidney disease) stage 3, GFR 30-59 ml/min DM renal manif type II, uncontrolled Hyperlipidemia BETTE (iron deficiency anemia) Obese SALOME (obstructive sleep apnea) Paroxysmal A-fib Peptic ulcer disease Primary osteoarthritis, unspecified site Type 2 diabetes mellitus with hyperglycemia, without long-term current use of insulin Family History Family History Mother Diabetes mellitus Family history of cardiovascular disease Father Family history of lung cancer Social History Social History Social History: Smoking packs per day: 1 Smoking cigarettes per day: 20.0 Years smoked: 50 Smoking pack-years: 50.00 Smoking status: Former smoker Tobacco type: cigarettes Second hand tobacco smoke exposure: No Smoking end date: 02/08/96 Alcohol intake: unknown Substance use: never Substance use type: does not use Last use: 1999 Living arrangements: with family Gender identity (if verbalized by the patient): Male Spiritual care concerns: No Mod Sed Physical Exam Physical Exam Pre Procedural Exam: Normal: Appearance, Eyes, Ears, Nose, Neck, Throat, Airway, Lungs, Heart Size, Neuro Exam, Abdomen and Skin and Variation: Heart Rate (Tachycardic), Heart Rhythm (Irregular irregular) and Extremities (1+ bilateral lower extremity edema) Hours since solid foods: 12 Hours since liquid intake: 12 ASA Classification/Sedation ASA Classification/Sedation ASA Class: II Emergent: No Risks: Risks, benefits and alternatives explained and patient/family accepted plan for sedation. Patient re-evaluated immediately prior to sedation.
[2020-03-27 08:53] LABS: Anion Gap 10 mmol/L (8-16); Blood Urea Nitrogen 64 mg/dL (9-20); Calcium 8.7 mg/dL (8.4-10.2); Carbon Dioxide 22 mmol/L (22-30); Chloride 107 mmol/L (98-107); Estimated CRCL calculation 18 ml/min; Estimated Glomerular Filt Rate 15; Glucose 121 mg/dL (75-110); Magnesium 1.7 mg/dL (1.6-2.3); Potassium 4.8 mmol/L (3.4-5.0); Sodium 139 mmol/L (137-145)
--- NOTE | 2020-03-27 09:40 | ECG_ITS ---
Measurements Intervals [place] Rate: 57 P: 19 [place]: 206 QRS: 21 QRSD: 105 T: 27 QT: 447 QTc: 436 Interpretive Statements SINUS BRADYCARDIA WITH FIRST DEGREE AV BLOCK ATRIAL PREMATURE COMPLEX INCOMPLETE RIGHT BUNDLE BRANCH BLOCK BORDERLINE T WAVE ABNORMALITY- INFERIOR LEADS BASELINE WANDER- V6 ABNORMAL ECG Electronically Signed On 03-27-2020 9:54:50 HEAT TREATING OPERATOR by Michael Mccabe D.O.
--- NOTE | 2020-03-27 09:40 | WPDCARDVER ---
Cardioversion Cardioversion Date of procedure: 03/27/20 Procedure: 1. Electrical cardioversion 2. Moderate sedation Pre-op diagnosis: Atrial fibrillation Post-op diagnosis: same Indications: Atrial fibrillation Description of procedure: After discussing the risks, benefits and alternatives of the procedure the patient agreeable via verbal and written informed consent. Risks discussed included stroke, shocking into a more problematic heart rhythm, adverse reaction to anesthesia, skin irritation or burn. After establishing continuous telemetry monitoring, pulse oxygenation and serial blood pressure assessments sedation was initiated. Procedure start time 9:26 a.m. Procedure stop time 9:39 a.m. Complications: None Blood loss: None Medications were administered and patient was monitored by Nura Campa RN Sedation: A total of 6 mg of Versed and 75 mcg of fentanyl given in divided dosages. This is for moderate sedation Findings: Atrial fibrillation with rapid ventricular response was confirmed prior to cardioversion. After adequate sedation 200 joules of synchronized biphasic energy was used which restored sinus rhythm with a heart rate of 60s. Conclusion: 1. Successful electrical cardioversion using 200 joules of synchronized biphasic energy 2. Moderate sedation
== END 2020-03-27 10:50 | disposition home or self-care (01) ==
PROVIDERS: PCP Family Medicine; Visit Provider Internal Medicine Cardiovascular Disease
PROC: 5A2204Z Restoration of Cardiac Rhythm, Single (ICD-10-PCS; principal; 2020-03-27 10:00)
DX: I48.0 Paroxysmal atrial fibrillation (principal); J44.9 Chronic obstructive pulmonary disease, unspecified; D64.9 Anemia, unspecified; E11.22 Type 2 diabetes mellitus with diabetic chronic kidney disease; N18.30 Chronic kidney disease, stage 3 unspecified; D50.9 Iron deficiency anemia, unspecified; E78.5 Hyperlipidemia, unspecified; G47.33 Obstructive sleep apnea (adult) (pediatric); K27.9 Peptic ulcer, site unspecified, unspecified as acute or chronic, without hemorrhage or perforation; Z79.4 Long term (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 of insulin; Z87.891 Personal history of nicotine dependence
CPT/HCPCS: 36415; 80048; 83735; 92960; 93005; C9803; J2250; J3010; J7040; U0003; U0005

== ENCOUNTER 2020-06-26 11:10 | Outpatient (CLI) | payer MEDICARE, SELFPAY ==
[2020-06-26 11:45] LABS: Basophils Absolute Auto 0.1 K/mm3 (0.0-0.1); Basophils Percent Auto 0.7 % (0.2-1.2); Eosinophils Absolute Auto 0.2 K/mm3 (0-0.3); Eosinophils Percent Auto 2.7 % (0-4.4); Immature Granulocyte Absolute 0.02 K/mm3 (0.00-0.031); Immature Granulocyte Percent A 0.2 % (0-0.5); Lymphocytes Absolute Auto 0.95 K/mm3 (0.9-3.2); Lymphocytes Percent Auto 11.7 % (18.3-44.2); Mean Corpuscular HGB Conc 33.1 g/dl (32-36); Mean Corpuscular Hemoglobin 34.5 pg (26-34); Mean Corpuscular Volume 104.1 fl (80-100); Mean Platelet Volume 9.1 fl (7.4-10.4); Monocytes Absolute Auto 0.8 K/mm3 (0.1-0.6); Monocytes Percent Auto 9.9 % (2.6-8.5); Neutrophils Absolute Auto 6.1 K/mm3 (1.3-6.7); Neutrophils Percent Auto 74.8 % (45.5-73.1); Platelet Count Result 191 k/mm3 (150-375); Red Blood Count 1.71 M/mm3 (4.6-6.20); Red Cell Distribution Width 13.6 % (11.5-14.5); White Blood Count 8.2 K/mm3 (4.5-10.0)
[2020-06-26 12:18] LABS: NT Pro B Type Natriuretic Pept 847 pg/mL (5-100)
[2020-06-26 12:22] LABS: Alanine Aminotransferase 16 U/L (4-50); Albumin Level 3.9 g/dL (3.5-5.1); Alkaline Phosphatase 51 U/L (38-126); Anion Gap 10 mmol/L (8-16); Aspartate Amino Transferase 21 U/L (17-59); Bilirubin,Total 0.2 mg/dL (0.2-1.3); Blood Urea Nitrogen 78 mg/dL (9-20); Calcium 8.5 mg/dL (8.4-10.2); Carbon Dioxide 22 mmol/L (22-30); Chloride 105 mmol/L (98-107); Estimated Glomerular Filt Rate 12; Glucose 102 mg/dL (75-110); Potassium 4.9 mmol/L (3.4-5.0); Sodium 137 mmol/L (137-145)
[2020-06-26 12:27] LABS: Hemoglobin A1C 5.3 % (<5.7)
[2020-06-26 13:38] LABS: Hematocrit 17.8 % (42.0-52.0); Hemoglobin 5.9 g/dL (14.0-18.0)
[2020-06-26 22:47] LABS: Iron 41 ug/dL (49-181)
[2020-06-26 22:51] LABS: Percent Iron Saturation 11 % (20-50)
== END 2020-06-26 11:11 | disposition home or self-care (01) ==
LOC: ANHLAB 11:15
PROVIDERS: PCP Family Medicine; Visit Provider Physician Assistant
DX: I50.9 Heart failure, unspecified (principal); N18.4 Chronic kidney disease, stage 4 (severe); D50.9 Iron deficiency anemia, unspecified; I48.0 Paroxysmal atrial fibrillation; E11.29 Type 2 diabetes mellitus with other diabetic kidney complication; E11.65 Type 2 diabetes mellitus with hyperglycemia; I12.9 Hypertensive chronic kidney disease with stage 1 through stage 4 chronic kidney disease, or unspecified chronic kidney disease
CPT/HCPCS: 36415; 80053; 82728; 83036; 83540; 83550; 83880; 85025

== ENCOUNTER 2020-06-26 14:02 | Inpatient (IN) | payer MEDICARE, SELFPAY ==
[2020-06-26] VITALS (15 sets, daily range): BP systolic 127–156; BP diastolic 44–60; PULSE 51–68; RESP 14–22; TEMP 35.7–37.2; O2SAT 95–100; BMI 36.0
--- NOTE | ~2020-06-26 | XR_ITS ---
EXAMINATION: XR chest 2V EXAM DATE: 06/26/2020 14:43 INDICATION: Weakness, shortness of breath, abnormal labs. TECHNIQUE: Frontal and lateral projections of the chest obtained and reviewed. Comparison is made to prior examination from 06/21/2019. FINDINGS: The lungs are clear. There are no pleural effusions. The cardiomediastinal silhouette is within normal limits. There is no pneumothorax suspected. Right shoulder replacement. Mild aortic a rterial sclerosis. IMPRESSION: No acute cardiopulmonary findings. Reviewed, dictated and finalized at location A.
--- NOTE | 2020-06-26 14:13 | ECG_ITS ---
Measurements Intervals [place] Rate: 59 P: 16 [place]: 220 QRS: 17 QRSD: 102 T: 21 QT: 432 QTc: 429 Interpretive Statements SINUS BRADYCARDIA WITH FIRST DEGREE AV BLOCK LOW QRS VOLTAGE IN PRECORDIAL LEADS BASELINE ARTIFACT- I, II, AVR, AVL, AVF ABNORMAL ECG Electronically Signed On 06-26-2020 14:36:31 CDT by Michael Mccabe D.O.
[2020-06-26 14:56] LABS: Prothrombin Time 31.6 Seconds (11.1-14.7)
[2020-06-26 15:28] LABS: Add Urine Microscopic? NO; Appearance Urine Clear (Clear); Bilirubin Urine Negative (Negative); Blood Urine Negative (Negative); Color Urine Yellow (Yellow); Glucose Urine UA Negative (Negative); Ketones Urine Negative (Negative); Leukocyte Esterase Ur Negative LEU/UL (Negative); Nitrate Urine Negative (Negative); Protein Urine Negative (Negative); Specific Grav Ur 1.012 (1.001-1.035); Urobilinogen Urine Negative mg/dL (<2.0)
[2020-06-26] MEDS: PANTOPRAZOLE SODIUM IV 40 MG VIAL 80 MG (15:42)
--- NOTE | 2020-06-26 16:01 | ED.RECABL ---
HPI - Recheck/Abnormal Lab/Rx General Chief Complaint: Recheck/Abnormal Lab/Rx Stated Complaint: Low Blood Counts Time Seen by Provider: 06/26/20 14:18 Source: patient, family, RN notes reviewed and old records reviewed Mode of arrival: wheelchair History of Present Illness HPI narrative: This is an 80 year old male with history chronic kidney disease, afib on chronic anticoagulation, cOPD who presents from his PCP's office for evaluation of a low hemoglobin. Patient has history of anemia and GI bleeding 1 year ago. He stopped taking his iron supplementation in 2019 when his blood count was found to be stable. He was restarted on his Xarelto under the care of his manager shell after an unremarkable EGD in December 2019. He notes his stools have been dark for at least 2 months but he denies abdominal pain, chest pain, nausea or vomiting. He reports chronic sob and leg swelling for 1 year. Related Data Home Medications Medication Instructions Recorded Confirmed furosemide 20 mg tablet 20 mg PO QAM 04/27/19 06/26/20 latanoprost 0.005 % eye drops 1 drop EACH EYE QPM 04/27/19 06/26/20 metoprolol succinate 25 mg PO DAILY 03/05/20 06/26/20 Xarelto 15 mg PO DAILY 03/27/20 06/26/20 calcitriol 0.25 mcg PO DAILY 06/26/20 06/26/20 insulin glargine [Lantus Solostar 12 unit SUB-Q HS 06/26/20 06/26/20 U-100 Insulin] losartan 100 mg PO DAILY 06/26/20 06/26/20 metolazone 5 mg PO DAILY 06/26/20 06/26/20 Allergies Allergy/AdvReac Type Severity Reaction Status Date / Time No Known Allergies Allergy Verified 06/26/20 10:16 Review of Systems Review of Systems: All systems reviewed & are unremarkable except as noted in HPI and below PMFSH Past Medical History Medical History Adenomatous colon polyp Anemia Chronic obstructive pulmonary disease CKD (chronic kidney disease) stage 3, GFR 30-59 ml/min DM renal manif type II, uncontrolled Hyperlipidemia BETTE (iron deficiency anemia) Obese SALOME (obstructive sleep apnea) Paroxysmal A-fib Peptic ulcer disease Primary osteoarthritis, unspecified site Type 2 diabetes mellitus with hyperglycemia, without long-term current use of insulin Family History Family History Mother Diabetes mellitus Family history of cardiovascular disease Father Family history of lung cancer Social History Social History Social History: Smoking packs per day: 1 Smoking cigarettes per day: 20.0 Years smoked: 50 Smoking pack-years: 50.00 Smoking status: Former smoker Tobacco type: cigarettes Second hand tobacco smoke exposure: Yes Smoking end date: 02/07/02 Alcohol intake: never Substance use: never Substance use type: does not use Last use: 1999 Gender identity (if verbalized by the patient): Male Spiritual care concerns: No Exam Const: General: no acute distress and alert Orientation/consciousness: patient oriented x3 HENMT: Head: normocephalic and atraumatic Face and sinus: face symmetric Mouth: Yes Normal oral and palatal mucosa present, Yes lip normal, Yes oropharynx normal and Yes moist mucous membranes Eyes: EOM: EOMs intact bilaterally Resp: Effort & Inspection: normal respiratory effort and no retractions Auscultation: clear to auscultation bilaterally Cardio: Rate: regular rate Rhythm: regular rhythm Heart sounds: no murmurs GI: GI Palp: Yes Soft to palpation, No Tenderness to palpation present (GI) and No Guarding due to palpation present (GI) Auscultation: normal bowel sounds Other: light brown stool that is guaic positive Skin: General skin exam: normal color Rashes: no rashes Neuro: General: patient oriented x3, moves all extremities and CN's II-XI intact bilaterally Psych: Mental Status: mental status grossly normal Affect: normal affect Course Reevaluation
--- NOTE | 2020-06-26 16:35 | PC.NURSE ---
CONSENT FOR BLOOD SIGNED AND PLACED IN CHART
--- NOTE | 2020-06-26 17:17 | PC.NURSE ---
This patient, Leobardo Reyes, was admitted to IMU Room 202-01. Patient/family oriented to hospital policies and general routines including ID bracelet, bed and alarms, visiting hours, pain management, procedures, bathroom and other care routines, personal items, smoking policy, room service/diet, and visiting hours. Information on how to activate the Rapid Response Team has been discussed. Patient/Family are encouraged to report perceived risks to care and to ask questions if they do not understand what they are told or what they should do.
[2020-06-26 17:59] LABS: Glucose Point of Care 202 mg/dl (65-105)
--- NOTE | 2020-06-26 20:26 | PM.IMHP ---
H&P: HPI History of Present Illness Date/Time: 06/26/20 20:26 Chief Complaint: Low blood count Narrative: 80-year-old male with past medical history of stage 4 chronic kidney disease, iron deficiency anemia, duodenal ulcers and paroxysmal atrial fibrillation on chronic anticoagulation with Xarelto who presented to the ER from his primary care physician's office due to anemia noted on outpatient labs. The patient reports that he was going to his primary care physician's office for a routine follow-up but was feeling weaker than usual. His weakness has been associated with black tarry stools for the last 2 months or so. He has not been taking his iron supplements since late last year. The patient had been hospitalized April of 2019 due to sepsis from pneumonia and was found to have duodenal ulcer with GI bleed at that time. He had a clip placed on the ulcer. He had a follow-up EGD and colonoscopy December 2019 which demonstrated no evidence of acute bleed but demonstrated gastritis. After is repeat EGD demonstrate no further bleeding the patient quit taking his iron supplementation. He reports that he usually has a bowel movement every 2-3 days. He denies any associated abdominal pain or GERD. He reports that for the last couple of months he has been extremely fatigued even with minimal activity. He has had some associated shortness of breath. His legs have been more swollen than usual for the last 2 months as well. His weight has been up about 10 lb for the last several months. He denies any orthopnea or paroxysmal nocturnal dyspnea in uses his CPAP as directed. He has noticed that his urine output has decreased over recent months. He does follow with Dr. Boyd (nephrology) and is supposed to follow-up next week as outpatient. He denies any dysuria, hematuria. He has not had any nausea or vomiting. He reports that his appetite is fair. He denies any abdominal pain. He has not had any chest pain or palpitations. He does have a history of paroxysmal atrial fibrillation and underwent cardioversion in March 2020. He is currently and sinus bradycardic rhythm. Review of Systems Review of Systems: Narrative: 12 systems were reviewed with pertinent positives and negatives per HPI. Except as documented in the HPI, all other systems were reviewed and are negative. [facility] Past Medical History Medical History (Updated 06/27/20 @ 02:29 by Magda Salazar DO) Adenomatous colon polyp Chronic obstructive pulmonary disease CKD (chronic kidney disease) stage 4, GFR 15-29 ml/min Diabetes mellitus Hemoglobin A1c 5.09 Jun 2020 Duodenal ulcer disease Glaucoma Hyperlipidemia Iron deficiency anemia Mitral valve regurgitation [id number] noted on RODNEY February 2020 Obese SALOME (obstructive sleep apnea) CPAP of 12 Paroxysmal A-fib Primary osteoarthritis, unspecified site Thrombus of left atrial appendage Noted on RODNEY February 2020 Surgical History Surgical History (Updated 06/27/20 @ 01:58 by Magda Salazar DO) History of bilateral knee replacement (~2004) History of colonoscopy with polypectomy (~12/2019) History of esophagogastroduodenoscopy (EGD) (~12/2019) History of right shoulder replacement (~2010) Status post cataract extraction of both eyes with insertion of intraocular lens Status post open reduction with internal fixation of fracture (~1977) Left lower extremity Family History Family History (Updated 06/27/20 @ 02:00 by Magda Salazar DO) Mother Diabetes mellitus Heart disease Father Lung cancer Sibling Lung cancer Breast cancer Son , 52 years of age Drug abuse Social History Social History (Updated 06/27/20 @ 02:14 by Magda Salazar DO) Social History: He lives with his of over 56 years. They had 1 son who of a drug overdose in his early 50s. They are helping raise their grandson. He is retired from [employer] He had a history of heavy alcohol use but quit drinking alcoho
[2020-06-26 21:25] LABS: Glucose Point of Care 270 mg/dl (65-105)
[2020-06-26] MEDS: LATANOPROST 0.005% OP SOLN 2.5 ML BTL 1 DROP EACH EYE (22:00)
[2020-06-26] MEDS: PANTOPRAZOLE 40 MG TABLET PO (22:00)
[2020-06-26] MEDS: INSULIN GLARGINE (*BKC) 100 UNITS/ML 12 UNITS SUB-Q (22:00)
[2020-06-26] MEDS: cloNIDine HCL 0.1 MG TABLET PO (22:31)
[2020-06-26] MEDS: TUBING, BLOOD PLUM PUMP TUBING 1 EACH XX (23:30)
[2020-06-26] MEDS: SODIUM CHLORIDE 0.9% IV 250 ML 30 ML (23:43)
[2020-06-27] VITALS (24 sets, daily range): BP systolic 125–165; BP diastolic 45–56; PULSE 47–99; RESP 14–24; TEMP 36.1–36.8; O2SAT 91–100
[2020-06-27 05:13] LABS: Basophils Percent Auto 0.7 % (0.2-1.2); Eosinophils Absolute Auto 0.2 K/mm3 (0-0.3); Eosinophils Percent Auto 3.9 % (0-4.4); Hematocrit 22.2 % (42.0-52.0); Hemoglobin 7.5 g/dL (14.0-18.0); Immature Granulocyte Absolute 0.02 K/mm3 (0.00-0.031); Immature Granulocyte Percent A 0.3 % (0-0.5); Lymphocytes Percent Auto 11.5 % (18.3-44.2); Mean Corpuscular HGB Conc 33.8 g/dl (32-36); Mean Corpuscular Hemoglobin 33.5 pg (26-34); Mean Corpuscular Volume 99.1 fl (80-100); Mean Platelet Volume 9.2 fl (7.4-10.4); Monocytes Absolute Auto 0.6 K/mm3 (0.1-0.6); Monocytes Percent Auto 10.5 % (2.6-8.5); Neutrophils Absolute Auto 4.4 K/mm3 (1.3-6.7); Neutrophils Percent Auto 73.1 % (45.5-73.1); Platelet Count Result 160 k/mm3 (150-375); Red Blood Count 2.24 M/mm3 (4.6-6.20); Red Cell Distribution Width 14.2 % (11.5-14.5); White Blood Count 6.1 K/mm3 (4.5-10.0)
[2020-06-27 05:29] LABS: Alanine Aminotransferase 14 U/L (4-50); Albumin Level 3.6 g/dL (3.5-5.1); Alkaline Phosphatase 47 U/L (38-126); Anion Gap 7 mmol/L (8-16); Aspartate Amino Transferase 17 U/L (17-59); Bilirubin,Total 0.5 mg/dL (0.2-1.3); Blood Urea Nitrogen 74 mg/dL (9-20); Calcium 8.2 mg/dL (8.4-10.2); Carbon Dioxide 24 mmol/L (22-30); Chloride 105 mmol/L (98-107); Estimated CRCL calculation 16 ml/min; Estimated Glomerular Filt Rate 14; Glucose 114 mg/dL (75-110); Potassium 4.7 mmol/L (3.4-5.0); Sodium 136 mmol/L (137-145)
[2020-06-27 08:12] LABS: Glucose Point of Care 127 mg/dl (65-105)
[2020-06-27] MEDS: AMIODARONE HCL 200 MG TABLET PO ×2 (09:40→16:34)
[2020-06-27] MEDS: FLUTICASONE/UMECLIDIN/VILANTER 100-62.5-25 MCG ELLIPTA 1 PUFF INHALATION (09:42)
[2020-06-27] MEDS: metOLazone 5 MG TABLET PO (11:44)
[2020-06-27] MEDS: amLODIPine BESYLATE 5 MG TABLET 10 MG PO (11:45)
[2020-06-27] MEDS: ATORVASTATIN 20 MG TABLET PO (11:46)
[2020-06-27] MEDS: calcitrioL 0.25 MCG CAPSULE PO (11:46)
[2020-06-27] MEDS: cloNIDine HCL 0.1 MG TABLET PO ×2 (11:46→21:04)
[2020-06-27] MEDS: CHLORTHALIDONE 25 MG TABLET PO (11:47)
[2020-06-27] MEDS: PANTOPRAZOLE 40 MG TABLET PO ×2 (11:47→21:05)
[2020-06-27] MEDS: METOPROLOL SUCCINATE EXT REL 25 MG TABCR PO (11:47)
[2020-06-27] MEDS: LOSARTAN POTASSIUM 100 MG TABLET PO (11:47)
[2020-06-27 12:19] LABS: Glucose Point of Care 287 mg/dl (65-105)
[2020-06-27] MEDS: LACTATED RINGERS 1,000 ML 150 ML IV CONT (12:25)
--- NOTE | 2020-06-27 12:41 | WPDANESEPPF ---
Anes - Initial Pre Proc Eval Procedure: Operation Date: 06/27/20 17:00 Proposed Procedures p Esophagogastroduodenoscopy - Demarcus Nation MD Date/Time: 06/27/20 12:41 Surgeon: Roseline Franco MD Pre Op Diagnosis: anemia,upper gi bleeding,chronic anticoagulation Patient Data Age: 80 Gender: M Height: 5 ft 10 in Weight: 116.9 kg Last Vital Signs Temp 98.1 F 06/27/20 12:21 Pulse 70 06/27/20 12:21 Resp 20 06/27/20 12:21 BP 159/51 H 06/27/20 12:21 Pulse Ox 97 06/27/20 12:21 Allergies Allergy/AdvReac Type Severity Reaction Status Date / Time No Known Allergies Allergy Verified 06/26/20 10:16 Home Medications Medication Instructions Recorded Confirmed Type furosemide 20 mg tablet 40 mg PO QAM 04/27/19 06/26/20 History latanoprost 0.005 % eye drops 1 drop EACH EYE QPM 04/27/19 06/26/20 History pen needle, diabetic, safety 30 #100 each 07/11/19 06/26/20 Rx gauge x 5 fluticasone fur. 100 mcg-umeclid 1 inhalation INHALATION DAILY #90 08/01/19 06/26/20 Rx 62.5 mcg-vilant 25 mcg each inhalat.powder albuterol sulfate 90 mcg/actuation 1 inhalation INHALATION Q4-6H PRN 10/30/19 06/26/20 Rx aerosol inhaler #18 gm metoprolol succinate 25 mg PO DAILY 03/05/20 06/26/20 History clonidine HCl 0.1 mg tablet 0.1 mg PO BID #180 tablet 03/13/20 06/26/20 Rx Xarelto 15 mg PO DAILY 03/27/20 06/26/20 History atorvastatin 20 mg tablet 20 mg PO DAILY #90 tablet 04/07/20 06/26/20 Rx pen needle, diabetic 32 gauge x #100 ea 05/07/20 06/26/20 Rx / alprazolam 0.5 mg tablet 0.5 mg PO BID PRN #60 tablet 05/20/20 06/26/20 Rx tramadol 37.5 mg-acetaminophen 325 1 tablet PO Q6H PRN #360 tablet 05/20/20 06/26/20 Rx mg tablet chlorthalidone 25 mg tablet 25 mg PO DAILY #90 tablet 06/09/20 06/26/20 Rx amiodarone 200 mg PO BID 06/26/20 06/26/20 History amlodipine 10 mg tablet 10 mg PO DAILY #90 tablet 06/26/20 06/26/20 Rx calcitriol 0.25 mcg PO DAILY 06/26/20 06/26/20 History insulin glargine [Lantus Solostar 12 unit SUB-Q HS 06/26/20 06/26/20 History U-100 Insulin] losartan 100 mg PO DAILY 06/26/20 06/26/20 History metolazone 5 mg PO DAILY 06/26/20 06/26/20 History pantoprazole 40 mg tablet,delayed 40 mg PO BID #180 tablet 06/26/20 06/26/20 Rx release Laboratory Tests 06/26/20 06/26/20 06/26/20 14:23 14:24 15:19 WBC RBC Hgb Hct MCV MCH MCHC RDW Plt Count MPV Immature Gran % (Auto) Neut % (Auto) Lymph % (Auto) [place] % (Auto) Eos % (Auto) Baso % (Auto) Lymph # (Auto) [place] # (Auto) Eos # (Auto) Baso # (Auto) Abs Immat Gran (auto) Absolute Neuts (auto) Absolute Nucleated RBC Nucleated RBC % PT 31.6 Seconds H Seconds (11.1-14.7) INR 3.0 APTT 71.0 SECONDS H SECONDS (22.3-36.8) Sodium Potassium Chloride Carbon Dioxide Anion Gap BUN Creatinine Estim Creat Clear Calc Estimated GFR Glucose POC Capillary Glucose Calcium Total Bilirubin AST ALT Alkaline Phosphatase Total Protein Albumin Urine Color Yellow (Yellow) Urine Appearance Clear (Clear) Urine pH 6.0 (5.0-9.0) Ur Specific [place] 1.012 (1.001-1.035) Urine Protein Negative mg/dL mg/dL (Negative) Urine Glucose (UA) Negative mg/dL mg/dL (Negative) Urine Ketones Negative mg/dL mg/dL (Negative) Ur Blood (Man) Negative (Negative) Urine Nitrate Negative (Negative) Urine Bilirubin N
--- NOTE | 2020-06-27 12:48 | WPDGICN ---
Assessment and Plan Assessment and plan (1) Anemia: Qualifiers: Anemia type: unspecified type Qualified Code(s): D64.9 - Anemia, unspecified Code(s): D64.9 - Anemia, unspecified Status: Acute Assessment and Plan: he has received 2 units of blood. Hemoglobin is 7.4 He had a bleeding ulcer treated at [facility] last year. A follow-up examination by Dr. Khan in December showed no active ulcer. One Endo clip was present in the duodenum. Because of the significant anemia, we will try to perform EGD before he is discharged. He had a colonoscopy just 6 months ago negative except for polyps and diverticulosis (2) GI bleed: Qualifiers: GI bleed type/associated pathology: unspecified gastrointestinal hemorrhage type Qualified Code(s): K92.2 - Gastrointestinal hemorrhage, unspecified Code(s): K92.2 - Gastrointestinal hemorrhage, unspecified Status: Acute Assessment and Plan: unfortunately INR is too high to safely perform EGD today. He took his last dose of Xarelto 24 hours ago. I will let him eat today. We will recheck his coags with the thought that he may be able to have endoscopy tomorrow. (3) Paroxysmal A-fib: Code(s): I48.0 - Paroxysmal atrial fibrillation Status: Acute Assessment and Plan: Rhythm seems regular now. GI Consult Note Consult date/time: 06/27/20 12:48 HPI: Leobardo Reyes is a 80 year old male with past medical history of stage 4 chronic kidney disease, iron deficiency anemia, duodenal ulcers and paroxysmal atrial fibrillation on chronic anticoagulation with Xarelto who presented to the ER from his primary care physician's office due to anemia noted on outpatient labs. The patient reports that he was going to his primary care physician's office for a routine follow-up but was feeling weaker than usual. His weakness has been associated with black tarry stools for the last 2 months or so. He has not been taking his iron supplements since late last year. The patient had been hospitalized April of 2019 due to sepsis from pneumonia and was found to have duodenal ulcer with GI bleed at that time. He had a clip placed on the ulcer. He had a follow-up EGD and colonoscopy December 2019 which demonstrated no evidence of acute bleed but demonstrated gastritis. After is repeat EGD demonstrate no further bleeding the patient quit taking his iron supplementation. He reports that he usually has a bowel movement every 2-3 days. He denies any associated abdominal pain or GERD. He reports that for the last couple of months he has been extremely fatigued even with minimal activity. He has had some associated shortness of breath. His legs have been more swollen than usual for the last 2 months as well. His weight has been up about 10 lb for the last several months. He denies any orthopnea or paroxysmal nocturnal dyspnea in uses his CPAP as directed. He has noticed that his urine output has decreased over recent months. He does follow with Dr. Boyd (nephrology) and is supposed to follow-up next week as outpatient. He denies any dysuria, hematuria. He has not had any nausea or vomiting. He reports that his appetite is fair. He denies any abdominal pain. He has not had any chest pain or palpitations. He does have a history of paroxysmal atrial fibrillation and underwent cardioversion in March 2020. He is currently and sinus bradycardic rhythm. he is not taking iron. He however has had dark stools for a couple of weeks. He denies abdominal pain or vomiting. His last dose of Xarelto was yesterday morning. his INR yesterday was 3 Review of Systems Review of Systems: All systems reviewed & are unremarkable except as noted in HPI and below Integumentary/Breasts: Skin/Breast: Reports unusual bruising ( he has been bruising very easily since going on blood thinner) [facility] Past Medical History Medical History (Reviewed 06/27/20 @ 12:50 by Demarcus Back
[2020-06-27] MEDS: INSULIN ASPART (*BKC) 100 UNITS/ML SUB-Q (13:39)
[2020-06-27 13:40] LABS: INR 1.4; Prothrombin Time 18.1 Seconds (11.1-14.7)
[2020-06-27] MEDS: FUROSEMIDE 20 MG TABLET PO (13:58)
[2020-06-27 16:21] LABS: Glucose Point of Care 116 mg/dl (65-105)
--- NOTE | 2020-06-27 18:38 | PM.IMPN ---
Progress Note: A&P Assessment and Plan (1) Type 2 diabetes mellitus with hyperglycemia, with long-term current use of insulin: Code(s): E11.65 - Type 2 diabetes mellitus with hyperglycemia; Z79.4 - FDC (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 of insulin Status: Acute (2) Acute renal failure superimposed on stage 4 chronic kidney disease: Qualifiers: Acute renal failure type: unspecified Qualified Code(s): N17.9 - Acute kidney failure, unspecified; N18.4 - Chronic kidney disease, stage 4 (severe) Code(s): N17.9 - Acute kidney failure, unspecified; N18.4 - Chronic kidney disease, stage 4 (severe) Status: Acute (3) GI bleed: Qualifiers: GI bleed type/associated pathology: unspecified gastrointestinal hemorrhage type Qualified Code(s): K92.2 - Gastrointestinal hemorrhage, unspecified Code(s): K92.2 - Gastrointestinal hemorrhage, unspecified Status: Acute (4) CKD (chronic kidney disease) stage 4, GFR 15-29 ml/min: Code(s): N18.4 - Chronic kidney disease, stage 4 (severe) Status: Acute (5) Symptomatic anemia: Code(s): D64.9 - Anemia, unspecified Status: Acute (6) Chronic anticoagulation: Code(s): Z79.01 - [employer] (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 of anticoagulants Status: Acute (7) SOB (shortness of breath): Code(s): R06.02 - Shortness of breath Status: Acute (8) BRONSON (generalized anxiety disorder): Code(s): F41.1 - Generalized anxiety disorder Status: Acute (9) Chronic obstructive pulmonary disease: Qualifiers: COPD type: unspecified COPD Qualified Code(s): J44.9 - Chronic obstructive pulmonary disease, unspecified Code(s): J44.9 - Chronic obstructive pulmonary disease, unspecified Status: Acute (10) SALOME (obstructive sleep apnea): Code(s): G47.33 - Obstructive sleep apnea (adult) (pediatric) Status: Acute (11) Hyperlipidemia: Code(s): E78.5 - Hyperlipidemia, unspecified Status: Acute (12) Paroxysmal A-fib: Code(s): I48.0 - Paroxysmal atrial fibrillation Status: Acute Additional Plan The patient reports melena however in the ER rectal exam demonstrated light brown stool that was Hemoccult positive. He has symptomatic anemia and is receiving 2 units of packed red blood cells. Gastroenterology has been consulted. Patient has been started on IV Protonix b.i.d.. The patient's home Xarelto has been held. Patient's blood transfusion well and shortly before time for a.m. labs. Repeat CBC has been ordered. The patient's renal function has worsened with his creatinine climbing from 3.9-4.8 in his BUN increasing from 64-78 in the last 3 months. Part of his be elevated BUN could be due to acute GI bleed. 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 Boyd. Otherwise the patient has a follow-up appoint with nephrology already scheduled for next week. The patient's glucoses are moderately elevated. Patient has been resumed on his home long-acting insulin and will add sliding scale insulin with Accu-Cheks a.c. HS. Hypoglycemia protocol has been ordered. 06/27/20 cardioverted in NSR for the last 6 months, cont OAC ?? EGD canceled as pt w elevated PT and recent use of OAC will try to reschedule for tomorrow TALON on CKD 4 improving slowly , will consult tomorrow if GFR remains below 15 cont supportive care Time Spent With Patient Time with patient: 25 - 35 minutes Subjective Date/time seen: 06/27/20 18:38 Patient has no complaints at the time of my visit. He is on clear liquid diet tolerating denies any ongoing black stools although he does report that he has had black stools for 1 month prior to admission. pt in NSR, reports he was cardioverted 6mo ago and has remained in NSR since that time Exam Narrative: Exam Narrative: GEN: NAD, cooperative obese HEENT: NCAT, MMM, EOMI Neck: no JVD Heart: RRR Lungs: CTA B
[2020-06-27] MEDS: INSULIN GLARGINE (*BKC) 100 UNITS/ML 12 UNITS SUB-Q (21:04)
[2020-06-27] MEDS: LATANOPROST 0.005% OP SOLN 2.5 ML BTL 1 DROP EACH EYE (21:04)
[2020-06-27 21:44] LABS: Glucose Point of Care 228 mg/dl (65-105)
[2020-06-27] MEDS: traMADol/ACETAMINOPHEN (*CRX) (ULTRACET) 37.5/325 MG TABLET 1 TAB PO (22:02)
[2020-06-28] VITALS (28 sets, daily range): BP systolic 121–171; BP diastolic 41–67; PULSE 56–84; RESP 14–24; TEMP 35.9–37; O2SAT 95–100
[2020-06-28 05:10] LABS: Basophils Absolute Auto 0.1 K/mm3 (0.0-0.1); Basophils Percent Auto 0.7 % (0.2-1.2); Eosinophils Absolute Auto 0.2 K/mm3 (0-0.3); Eosinophils Percent Auto 2.6 % (0-4.4); Hematocrit 22.5 % (42.0-52.0); Hemoglobin 7.5 g/dL (14.0-18.0); Immature Granulocyte Absolute 0.04 K/mm3 (0.00-0.031); Immature Granulocyte Percent A 0.5 % (0-0.5); Lymphocytes Absolute Auto 0.79 K/mm3 (0.9-3.2); Lymphocytes Percent Auto 10.4 % (18.3-44.2); Mean Corpuscular HGB Conc 33.3 g/dl (32-36); Mean Corpuscular Hemoglobin 33.2 pg (26-34); Mean Corpuscular Volume 99.6 fl (80-100); Mean Platelet Volume 9.1 fl (7.4-10.4); Monocytes Absolute Auto 0.7 K/mm3 (0.1-0.6); Monocytes Percent Auto 8.8 % (2.6-8.5); Neutrophils Absolute Auto 5.8 K/mm3 (1.3-6.7); Platelet Count Result 166 k/mm3 (150-375); Red Blood Count 2.26 M/mm3 (4.6-6.20); Red Cell Distribution Width 14.5 % (11.5-14.5); White Blood Count 7.6 K/mm3 (4.5-10.0)
[2020-06-28 05:23] LABS: INR 1.3; Prothrombin Time 16.3 Seconds (11.1-14.7)
[2020-06-28 05:24] LABS: Partial Thromboplastin Time 44.7 SECONDS (22.3-36.8)
[2020-06-28 05:37] LABS: Albumin Level 3.3 g/dL (3.5-5.1); Anion Gap 3 mmol/L (8-16); Blood Urea Nitrogen 59 mg/dL (9-20); Calcium 8.7 mg/dL (8.4-10.2); Carbon Dioxide 26 mmol/L (22-30); Chloride 105 mmol/L (98-107); Estimated CRCL calculation 20 ml/min; Estimated Glomerular Filt Rate 17; Glucose 126 mg/dL (75-110); Phosphorus 4.2 mg/dL (2.5-4.5); Potassium 4.2 mmol/L (3.4-5.0); Sodium 134 mmol/L (137-145)
[2020-06-28 08:32] LABS: Glucose Point of Care 151 mg/dl (65-105)
--- NOTE | 2020-06-28 09:34 | WPDGIPROGNO ---
Progress Note: A&P Additional Plan GI [facility] todd Nation 28 Jun 2020 Denies AP, N, V, BRBPR, melena VSS 3+ bilatreral FELIBERTO. Soft/NT Hct 23. Cr 3.5 BETTE with melena on Xarelto with elevated INR - No active bleed - Follow H+H; transfuse prn - PPI - Avoid aspirin, NSAIDS and anticoagulants - EGD this am - INR has been corrected - Elevated INR on Xarelto suggests underlying coagulopathy; consider other agent The procedure of upper endoscopy, its indications, alternatives of barium studies and risks including perforation, bleeding, infection, reaction to medication as well as the possible need for blood or surgery were discussed with the patient. Patient voices understanding, agrees to proceed and provides informed consent. Further recs to follow EGD. [facility] [phone] Subjective Date/time seen: 06/28/20 09:34 Objective Data Vital Signs Vital Signs: Vital Signs - 24 hr 06/27/20 09:40 06/27/20 10:00 06/27/20 11:47 Temperature Pulse Rate 63 70 66 Respiratory Rate Blood Pressure Pulse Oximetry 06/27/20 11:58 06/27/20 12:00 06/27/20 12:21 Temperature 36.6 C 36.7 C Pulse Rate 62 70 Respiratory Rate 20 20 Blood Pressure 140/50 L 159/51 H Pulse Oximetry 91 100 97 06/27/20 14:00 06/27/20 16:00 06/27/20 16:34 Temperature 36.6 C Pulse Rate 56 L 64 57 L Respiratory Rate 24 H Blood Pressure 165/51 H Pulse Oximetry 98 06/27/20 18:00 06/27/20 19:20 06/27/20 20:00 Temperature 36.8 C Pulse Rate 70 68 75 Respiratory Rate 20 Blood Pressure 150/45 H Pulse Oximetry 98 06/27/20 21:03 06/27/20 22:00 06/27/20 22:30 Temperature Pulse Rate 67 56 L 59 L Respiratory Rate 18 Blood Pressure Pulse Oximetry 98 06/28/20 00:00 06/28/20 02:00 06/28/20 02:40 Temperature 37.0 C Pulse Rate 57 L 57 L 56 L Respiratory Rate 18 16 Blood Pressure 147/54 H Pulse Oximetry 98 97 06/28/20 02:41 06/28/20 04:00 06/28/20 06:00 Temperature 36.9 C Pulse Rate 65 56 L 63 Respiratory Rate 14 Blood Pressure 142/49 H Pulse Oximetry 95 97 06/28/20 08:35 Temperature 36.1 C L Pulse Rate 64 Respiratory Rate 24 H Blood Pressure 151/51 H Pulse Oximetry 97 Intake/Output Intake/Output: Intake & Output 06/25/20 06/26/20 06/27/20 06/28/20 23:59 23:59 23:59 23:59 Intake Total 590 2930 543 Output Total 260 1125 850 Balance 330 1805 -307 Meds/Results Medications: Active Medications Generic Name Dose Route Start Last Admin Trade Name Freq PRN Reason Stop Dose Admin Albuterol 2 puff 06/26/20 20:18 Albuterol Sulfate (*Sp) Aerosol 1 Puff INHALATION Q4-6H PRN shortness of breath or wheezing Alprazolam 0.5 mg 06/26/20 20:18 Alprazolam (*Crx) 0.5 Mg Tablet PO BID PRN anxiety Amiodarone HCl 200 mg 06/27/20 08:00 06/27/20 16:34 Amiodarone Hcl 200 Mg Tablet PO 200 mg BIDWM FAISAL Administration Amlodipine Besylate 10 mg 06/27/20 09:00 06/27/20 11:45 Amlodipine Besylate 5 Mg Tablet PO 10 mg DAILY FAISAL Administration Atorvastatin Calcium 20 mg 06/27/20 09:00 06/27/20 11:46 Atorvastatin 20 Mg Tablet PO 20 mg DAILY FAISAL Administration Calcitriol 0.25 mcg 06/27/20 09:00 06/27/20 11:46 Calcitriol 0.25 Mcg Capsule PO 0.25 mcg DAILY FAISAL Administration Chlorthalidone 25 mg 06/27/20 09:00 06/27/20 11:47 Chlorthalidone 25 Mg Tablet PO 25 mg DAILY FAISAL Administration Clonidine HCl 0.1 mg 06/26/20 21:00 06/27/20 21:04 Clonidine Hcl 0.1 Mg Tablet PO 0.1 mg Q12HR FAISAL Administration Dextrose 12.5 gm 06/26/20 20:24 Dextrose 50% 25 Gm/50 Ml Syringe IV PUSH PRN PRN Hypoglycemia Protocol Fluticasone/Umeclidinium/Vilanterol 1 puff 06/27/20 08:00 06/27/20 09:42 Fluticasone/Umeclidin/Vilanter 100-62.5-25 Mcg Ellipta INHALATION 1 puff DAILY@0800 FAISAL Administration Furosemide 20 mg 06/27/20 09:00 06/27/20 13:58 Furosemide 20 Mg Tablet PO 20 mg
--- NOTE | 2020-06-28 10:45 | WPDANESEPPF ---
Anes - Initial Pre Proc Eval Procedure: Operation Date: 06/27/20 17:00 Proposed Procedures p Esophagogastroduodenoscopy - Demarcus Nation MD Operation Date: 06/28/20 10:45 Proposed Procedures p Esophagogastroduodenoscopy - Nehemias Blank MD Date/Time: 06/28/20 10:45 Surgeon: Roseline Franco MD Pre Op Diagnosis: anemia,upper gi bleeding,chronic anticoagulation Patient Data Age: 80 Gender: M Height: 1.78 m Weight: 114.9 kg Last Vital Signs Temp 36.1 C L 06/28/20 08:35 Pulse 64 06/28/20 08:35 Resp 24 H 06/28/20 08:35 BP 151/51 H 06/28/20 08:35 Pulse Ox 97 06/28/20 08:35 Allergies Allergy/AdvReac Type Severity Reaction Status Date / Time No Known Allergies Allergy Verified 06/26/20 10:16 Home Medications Medication Instructions Recorded Confirmed Type furosemide 20 mg tablet 40 mg PO QAM 04/27/19 06/26/20 History latanoprost 0.005 % eye drops 1 drop EACH EYE QPM 04/27/19 06/26/20 History pen needle, diabetic, safety 30 #100 each 07/11/19 06/26/20 Rx gauge x 5 fluticasone fur. 100 mcg-umeclid 1 inhalation INHALATION DAILY #90 08/01/19 06/26/20 Rx 62.5 mcg-vilant 25 mcg each inhalat.powder albuterol sulfate 90 mcg/actuation 1 inhalation INHALATION Q4-6H PRN 10/30/19 06/26/20 Rx aerosol inhaler #18 gm metoprolol succinate 25 mg PO DAILY 03/05/20 06/26/20 History clonidine HCl 0.1 mg tablet 0.1 mg PO BID #180 tablet 03/13/20 06/26/20 Rx Xarelto 15 mg PO DAILY 03/27/20 06/26/20 History atorvastatin 20 mg tablet 20 mg PO DAILY #90 tablet 04/07/20 06/26/20 Rx pen needle, diabetic 32 gauge x #100 ea 05/07/20 06/26/20 Rx 5/ alprazolam 0.5 mg tablet 0.5 mg PO BID PRN #60 tablet 05/20/20 06/26/20 Rx tramadol 37.5 mg-acetaminophen 325 1 tablet PO Q6H PRN #360 tablet 05/20/20 06/26/20 Rx mg tablet chlorthalidone 25 mg tablet 25 mg PO DAILY #90 tablet 06/09/20 06/26/20 Rx amiodarone 200 mg PO BID 06/26/20 06/26/20 History amlodipine 10 mg tablet 10 mg PO DAILY #90 tablet 06/26/20 06/26/20 Rx calcitriol 0.25 mcg PO DAILY 06/26/20 06/26/20 History insulin glargine [Lantus Solostar 12 unit SUB-Q HS 06/26/20 06/26/20 History U-100 Insulin] losartan 100 mg PO DAILY 06/26/20 06/26/20 History metolazone 5 mg PO DAILY 06/26/20 06/26/20 History pantoprazole 40 mg tablet,delayed 40 mg PO BID #180 tablet 06/26/20 06/26/20 Rx release Laboratory Tests 06/27/20 06/27/20 06/27/20 12:15 13:19 16:18 WBC RBC Hgb Hct MCV MCH MCHC RDW Plt Count MPV Immature Gran % (Auto) Neut % (Auto) Lymph % (Auto) [place] % (Auto) Eos % (Auto) Baso % (Auto) Lymph # (Auto) [place] # (Auto) Eos # (Auto) Baso # (Auto) Abs Immat Gran (auto) Absolute Neuts (auto) Absolute Nucleated RBC Nucleated RBC % PT 18.1 Seconds H D Seconds (11.1-14.7) INR 1.4 APTT Sodium Potassium Chloride Carbon Dioxide Anion Gap BUN Creatinine Estim Creat Clear Calc Estimated GFR Glucose POC Capillary Glucose 287 mg/dl H mg/dl 116 mg/dl H mg/dl (65-105) (65-105) Calcium Phosphorus Albumin 06/27/20 06/28/20 06/28/20 21:02 04:35 04:36 WBC 7.6 K/mm3 K/mm3 (4.5-10.0) RBC 2.26 M/mm3 L M/mm3 (4.6-6.20) Hgb 7.5 g/dL L g/dL (14.0-18.0) Hct 22.5 % L % (42.0-52.0) MCV 99.6 fl fl (80-100) MCH 33.2 pg pg (26-34) MCHC 33.3 g/dl g/dl (32-36) RDW 14.5 % % (11.5-14.5) Plt Count 166 k/mm3 k/mm3 (150-375) MPV 9.1 fl fl
[2020-06-28] MEDS: LACTATED RINGERS 1,000 ML 150 ML IV CONT (10:55)
[2020-06-28 10:58] LABS: Glucose Point of Care 156 mg/dl (65-105)
[2020-06-28 11:30] LABS: Glucose Point of Care 152 mg/dl (65-105)
--- NOTE | 2020-06-28 11:47 | PM.PROC ---
Procedure Note - Detailed Date of procedure: 06/28/20 Pre-op diagnosis: anemia,upper gi bleeding,chronic anticoagulation Procedure performed: EGD Implants: None Anesthesia: MAC Surgeon: Nehemias Blank MD Estimated blood loss (mL): 0 Pathology: yes Complications: No immediate complications Condition: stable Disposition: floor Findings: INDICATION: BETTE with melena on Xarelto with elevated INR. POST-OP: Mild gastritis. Gastric biopsy done for NEL. SEDATION: Per anesthesia With the patient in the left lateral decubitus position, the [employer] upper endoscope was used to easily intubate the patient?s esophagus and advanced to the third portion of the duodenum. Careful inspection of the mucosa was made upon insertion and withdrawal of the endoscope with retroflexion in the stomach. FINDINGS: Esophagus: SC Jx at 40 cm. Esophagus is normal. No esophagitis, stricture, mass or Hopkins?s. Stomach: Fundus, body normal. The antrum has erythema and edema consistent with non-erosive gastritis. Biopsies taken throughout the stomach for NEL. No ulceration, erosion, AVM or malignancy. Duodenum: Normal in the bulb, second and third portion. No complications, blood loss or implants. ASSESSMENT AND PLAN: BETTE with melena on Xarelto with elevated INR: - EGD 06-28-2020 with antral gastritis could explain BETTE - NEL negative - No active bleed - Follow H+H; transfuse prn - PPI - Avoid aspirin, NSAIDS and anticoagulants - INR has been corrected - Elevated INR on Xarelto suggests underlying coagulopathy; consider other agent Nehemias Blank M.D. [phone] CC: Dr. Nation. Dr. Wong Roy
[2020-06-28] MEDS: AMIODARONE HCL 200 MG TABLET PO ×2 (12:11→17:52)
[2020-06-28] MEDS: amLODIPine BESYLATE 5 MG TABLET 10 MG PO (12:12)
[2020-06-28] MEDS: FLUTICASONE/UMECLIDIN/VILANTER 100-62.5-25 MCG ELLIPTA 1 PUFF INHALATION (12:12)
[2020-06-28] MEDS: calcitrioL 0.25 MCG CAPSULE PO (12:13)
[2020-06-28] MEDS: cloNIDine HCL 0.1 MG TABLET PO ×2 (12:14→21:18)
[2020-06-28] MEDS: CHLORTHALIDONE 25 MG TABLET PO (12:14)
[2020-06-28] MEDS: metOLazone 5 MG TABLET PO (12:15)
[2020-06-28] MEDS: METOPROLOL SUCCINATE EXT REL 25 MG TABCR PO (12:15)
[2020-06-28] MEDS: FUROSEMIDE 20 MG TABLET PO (12:15)
[2020-06-28] MEDS: LOSARTAN POTASSIUM 100 MG TABLET PO (12:15)
[2020-06-28] MEDS: PANTOPRAZOLE 40 MG TABLET PO ×2 (12:16→21:19)
[2020-06-28 12:17] LABS: Glucose Point of Care 159 mg/dl (65-105)
--- NOTE | 2020-06-28 12:27 | WPDANESPN ---
Anes - Prog Note Post-Op Date/Time: 06/28/20 12:27 Cardiovascular status: normal Respiratory status: normal Airway patency: baseline Mental status: baseline Post-Op hydration status: normal Vital Signs: Last Vital Signs Temp 35.9 C L 06/28/20 12:20 Pulse 72 06/28/20 12:20 Resp 20 06/28/20 12:20 BP 146/41 H 06/28/20 12:20 Pulse Ox 98 06/28/20 12:20 Pain Score (VAS): 0 I/O: Intake & Output 06/27/20 06/28/20 06/28/20 23:59 07:59 15:59 Intake Total 1730 543 100 Output Total 400 225 625 Balance 1330 318 -525 Laboratory Tests 06/28/20 04:36 06/28/20 04:36 06/27/20 06/27/20 06/27/20 13:19 16:18 21:02 WBC RBC Hgb Hct MCV MCH MCHC RDW Plt Count MPV Immature Gran % (Auto) Neut % (Auto) Lymph % (Auto) Kern % (Auto) Eos % (Auto) Baso % (Auto) Lymph # (Auto) Kern # (Auto) Eos # (Auto) Baso # (Auto) Abs Immat Gran (auto) Absolute Neuts (auto) Absolute Nucleated RBC Nucleated RBC % PT 18.1 H D INR 1.4 APTT Sodium Potassium Chloride Carbon Dioxide Anion Gap BUN Creatinine Estim Creat Clear Calc Estimated GFR Glucose POC Capillary Glucose 116 H 228 H Calcium Phosphorus Albumin 06/28/20 06/28/20 06/28/20 04:35 04:36 04:36 WBC 7.6 RBC 2.26 L Hgb 7.5 L Hct 22.5 L MCV 99.6 MCH 33.2 MCHC 33.3 RDW 14.5 Plt Count 166 MPV 9.1 Immature Gran % (Auto) 0.5 Neut % (Auto) 77.0 H Lymph % (Auto) 10.4 L Kern % (Auto) 8.8 H Eos % (Auto) 2.6 Baso % (Auto) 0.7 Lymph # (Auto) 0.79 L Kern # (Auto) 0.7 H Eos # (Auto) 0.2 Baso # (Auto) 0.1 Abs Immat Gran (auto) 0.04 H Absolute Neuts (auto) 5.8 Absolute Nucleated RBC 0.0 Nucleated RBC % 0.0 PT 16.3 H INR 1.3 APTT 44.7 H Sodium 134 L Potassium 4.2 Chloride 105 Carbon Dioxide 26 Anion Gap 3 L BUN 59 H D Creatinine 3.50 H Estim Creat Clear Calc 20 Estimated GFR 17 L Glucose 126 H POC Capillary Glucose Calcium 8.7 Phosphorus 4.2 Albumin 3.3 L 06/28/20 06/28/20 06/28/20 08:20 10:56 11:29 WBC RBC Hgb Hct MCV MCH MCHC RDW Plt Count MPV Immature Gran % (Auto) Neut % (Auto) Lymph % (Auto) Kern % (Auto) Eos % (Auto) Baso % (Auto) Lymph # (Auto) Kern # (Auto) Eos # (Auto) Baso # (Auto) Abs Immat Gran (auto) Absolute Neuts (auto) Absolute Nucleated RBC Nucleated RBC % PT INR APTT Sodium Potassium Chloride Carbon Dioxide Anion Gap BUN Creatinine Estim Creat Clear Calc Estimated GFR Glucose POC Capillary Glucose 151 H 156 H 152 H Calcium Phosphorus Albumin 06/28/20 12:07 WBC RBC Hgb Hct MCV MCH MCHC RDW Plt Count MPV Immature Gran % (Auto) Neut % (Auto) Lymph % (Auto) Kern % (Auto) Eos % (Auto) Baso % (Auto) Lymph # (Auto) Kern # (Auto) Eos # (Auto) Baso # (Auto) Abs Immat Gran (auto) Absolute Neuts (auto) Absolute Nucleated RBC Nucleated RBC % PT INR APTT Sodium Potassium Chloride Carbon Dioxide Anion Gap BUN Creatinine Estim Creat Clear Calc Estimated GFR Glucose POC Capillary Glucose 159 H Calcium Phosphorus Albumin Post-procedural complaints: none Patient Feedback: Patient satisfied with anesthetic care.
--- NOTE | 2020-06-28 12:35 | PM.IMPN ---
Progress Note: A&P Assessment and Plan (1) Type 2 diabetes mellitus with hyperglycemia, with long-term current use of insulin: Code(s): E11.65 - Type 2 diabetes mellitus with hyperglycemia; Z79.4 - community worker (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 of insulin Status: Acute (2) Acute renal failure superimposed on stage 4 chronic kidney disease: Qualifiers: Acute renal failure type: unspecified Qualified Code(s): N17.9 - Acute kidney failure, unspecified; N18.4 - Chronic kidney disease, stage 4 (severe) Code(s): N17.9 - Acute kidney failure, unspecified; N18.4 - Chronic kidney disease, stage 4 (severe) Status: Acute (3) GI bleed: Qualifiers: GI bleed type/associated pathology: unspecified gastrointestinal hemorrhage type Qualified Code(s): K92.2 - Gastrointestinal hemorrhage, unspecified Code(s): K92.2 - Gastrointestinal hemorrhage, unspecified Status: Acute (4) CKD (chronic kidney disease) stage 4, GFR 15-29 ml/min: Code(s): N18.4 - Chronic kidney disease, stage 4 (severe) Status: Acute (5) Symptomatic anemia: Code(s): D64.9 - Anemia, unspecified Status: Acute (6) Chronic anticoagulation: Code(s): Z79.01 - community worker (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 of anticoagulants Status: Acute (7) SOB (shortness of breath): Code(s): R06.02 - Shortness of breath Status: Acute (8) BRONSON (generalized anxiety disorder): Code(s): F41.1 - Generalized anxiety disorder Status: Acute (9) Chronic obstructive pulmonary disease: Qualifiers: COPD type: unspecified COPD Qualified Code(s): J44.9 - Chronic obstructive pulmonary disease, unspecified Code(s): J44.9 - Chronic obstructive pulmonary disease, unspecified Status: Acute (10) SALOME (obstructive sleep apnea): Code(s): G47.33 - Obstructive sleep apnea (adult) (pediatric) Status: Acute (11) Hyperlipidemia: Code(s): E78.5 - Hyperlipidemia, unspecified Status: Acute (12) Paroxysmal A-fib: Code(s): I48.0 - Paroxysmal atrial fibrillation Status: Acute Additional Plan The patient reports melena however in the ER rectal exam demonstrated light brown stool that was Hemoccult positive. He has symptomatic anemia and is receiving 2 units of packed red blood cells. Gastroenterology has been consulted. Patient has been started on IV Protonix b.i.d.. The patient's home Xarelto has been held. Patient's blood transfusion well and shortly before time for a.m. labs. Repeat CBC has been ordered. The patient's renal function has worsened with his creatinine climbing from 3.9-4.8 in his BUN increasing from 64-78 in the last 3 months. Part of his be elevated BUN could be due to acute GI bleed. However if patient's creatinine continues to worsen we may need to consider consulting patient's cma Dr. Boyd. Otherwise the patient has a follow-up appoint with nephrology already scheduled for next week. The patient's glucoses are moderately elevated. Patient has been resumed on his home long-acting insulin and will add sliding scale insulin with Accu-Cheks a.c. HS. Hypoglycemia protocol has been ordered. 06/27/20 cardioverted in NSR for the last 4-5 months, cont OAC ?? EGD canceled as pt w elevated PT and recent use of OAC will try to reschedule for tomorrow TALON on CKD 4 improving slowly , will consult tomorrow if GFR remains below 15 cont supportive care 06/28/20 EGD completed possible bleeding from stomach. inflammation noted. monitor off OAC daily H/H advance diet to diabetic if remains stable dc home in 24-48hrs plan to restart OAC next Tuesday Subjective Date/time seen: 06/28/20 12:35 pt has no complaints seen after EGD aware of plan to monitor him 24-48hrs and to remain off OAC for 5 -7 days. He is in NSR and has remained in NSR since cardioverted in Feb or Mar of this year. Exam Narrative: Exam Narrative: GEN: NAD, cooperative, obese HEENT: NCA
[2020-06-28 16:16] LABS: Glucose Point of Care 204 mg/dl (65-105)
[2020-06-28] MEDS: INSULIN ASPART (*BKC) 100 UNITS/ML SUB-Q (17:51)
[2020-06-28 20:32] LABS: Glucose Point of Care 132 mg/dl (65-105)
[2020-06-28] MEDS: ATORVASTATIN 20 MG TABLET PO (21:19)
[2020-06-28] MEDS: LATANOPROST 0.005% OP SOLN 2.5 ML BTL 1 DROP EACH EYE (21:19)
[2020-06-28] MEDS: INSULIN GLARGINE (*BKC) 100 UNITS/ML 12 UNITS SUB-Q (21:20)
[2020-06-29] VITALS (23 sets, daily range): BP systolic 138–169; BP diastolic 46–61; PULSE 57–85; RESP 13–20; TEMP 36–36.9; O2SAT 95–99
[2020-06-29 04:52] LABS: Hematocrit 21.3 % (42.0-52.0); Mean Corpuscular HGB Conc 32.9 g/dl (32-36); Mean Corpuscular Hemoglobin 32.3 pg (26-34); Mean Corpuscular Volume 98.2 fl (80-100); Mean Platelet Volume 9.3 fl (7.4-10.4); Platelet Count Result 174 k/mm3 (150-375); Red Blood Count 2.17 M/mm3 (4.6-6.20); Red Cell Distribution Width 14.3 % (11.5-14.5); White Blood Count 8.7 K/mm3 (4.5-10.0)
[2020-06-29 05:37] LABS: Anion Gap 2 mmol/L (8-16); Blood Urea Nitrogen 48 mg/dL (9-20); Calcium 8.4 mg/dL (8.4-10.2); Carbon Dioxide 26 mmol/L (22-30); Chloride 106 mmol/L (98-107); Estimated CRCL calculation 25 ml/min; Estimated Glomerular Filt Rate 22; Glucose 131 mg/dL (75-110); Potassium 4.3 mmol/L (3.4-5.0); Sodium 134 mmol/L (137-145)
[2020-06-29 07:33] LABS: Glucose Point of Care 135 mg/dl (65-105)
--- NOTE | 2020-06-29 08:14 | PM.IMPN ---
Progress Note: A&P Assessment and Plan (1) Type 2 diabetes mellitus with hyperglycemia, with long-term current use of insulin: Code(s): E11.65 - Type 2 diabetes mellitus with hyperglycemia; Z79.4 - alf (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 of insulin Status: Acute (2) Acute renal failure superimposed on stage 4 chronic kidney disease: Qualifiers: Acute renal failure type: unspecified Qualified Code(s): N17.9 - Acute kidney failure, unspecified; N18.4 - Chronic kidney disease, stage 4 (severe) Code(s): N17.9 - Acute kidney failure, unspecified; N18.4 - Chronic kidney disease, stage 4 (severe) Status: Acute (3) GI bleed: Qualifiers: GI bleed type/associated pathology: unspecified gastrointestinal hemorrhage type Qualified Code(s): K92.2 - Gastrointestinal hemorrhage, unspecified Code(s): K92.2 - Gastrointestinal hemorrhage, unspecified Status: Acute (4) CKD (chronic kidney disease) stage 4, GFR 15-29 ml/min: Code(s): N18.4 - Chronic kidney disease, stage 4 (severe) Status: Acute (5) Symptomatic anemia: Code(s): D64.9 - Anemia, unspecified Status: Acute (6) Chronic anticoagulation: Code(s): Z79.01 - jr. systems administrator (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 of anticoagulants Status: Acute (7) SOB (shortness of breath): Code(s): R06.02 - Shortness of breath Status: Acute (8) BRONSON (generalized anxiety disorder): Code(s): F41.1 - Generalized anxiety disorder Status: Acute (9) Chronic obstructive pulmonary disease: Qualifiers: COPD type: unspecified COPD Qualified Code(s): J44.9 - Chronic obstructive pulmonary disease, unspecified Code(s): J44.9 - Chronic obstructive pulmonary disease, unspecified Status: Acute (10) SALOME (obstructive sleep apnea): Code(s): G47.33 - Obstructive sleep apnea (adult) (pediatric) Status: Acute (11) Hyperlipidemia: Code(s): E78.5 - Hyperlipidemia, unspecified Status: Acute (12) Paroxysmal A-fib: Code(s): I48.0 - Paroxysmal atrial fibrillation Status: Acute Additional Plan The patient reports melena however in the ER rectal exam demonstrated light brown stool that was Hemoccult positive. He has symptomatic anemia and is receiving 2 units of packed red blood cells. Gastroenterology has been consulted. Patient has been started on IV Protonix b.i.d.. The patient's home Xarelto has been held. Patient's blood transfusion well and shortly before time for a.m. labs. Repeat CBC has been ordered. The patient's renal function has worsened with his creatinine climbing from 3.9-4.8 in his BUN increasing from 64-78 in the last 3 months. Part of his be elevated BUN could be due to acute GI bleed. However if patient's creatinine continues to worsen we may need to consider consulting patient's valve repairer reclamation Dr. Boyd. Otherwise the patient has a follow-up appoint with nephrology already scheduled for next week. The patient's glucoses are moderately elevated. Patient has been resumed on his home long-acting insulin and will add sliding scale insulin with Accu-Cheks a.c. HS. Hypoglycemia protocol has been ordered. 06/27/20 cardioverted in NSR for the last 4-5 months, cont OAC ?? EGD canceled as pt w elevated PT and recent use of OAC will try to reschedule for tomorrow TALON on CKD 4 improving slowly , will consult tomorrow if GFR remains below 15 cont supportive care 06/28/20 EGD completed possible bleeding from stomach. inflammation noted. monitor off OAC daily H/H advance diet to diabetic if remains stable dc home in 24-48hrs plan to restart OAC next Tuesday06/29/20 on PPI slight drop in H/H today CLD for now cont to monitor colonoscopy tomorrow bowel prep ordered chronic renal disease w elevated BP on multiple agents, hydralazine added 25mg PO TID c/s to Cardiology -> dc off OAC d/t risk of bleeding; will f/u w Dr Charles Subjective Date/time seen: 06/08
[2020-06-29 08:49] LABS: INR 1.1; Prothrombin Time 14.7 Seconds (11.1-14.7)
[2020-06-29 08:50] LABS: Fibrinogen 232 mg/dl (215-510); Partial Thromboplastin Time 38.8 SECONDS (22.3-36.8)
[2020-06-29] MEDS: hydrALAZINE HCL 25 MG TABLET PO ×3 (09:30→17:17)
[2020-06-29] MEDS: amLODIPine BESYLATE 5 MG TABLET 10 MG PO (09:30)
[2020-06-29] MEDS: calcitrioL 0.25 MCG CAPSULE PO (09:30)
[2020-06-29] MEDS: FLUTICASONE/UMECLIDIN/VILANTER 100-62.5-25 MCG ELLIPTA 1 PUFF INHALATION (09:31)
[2020-06-29] MEDS: cloNIDine HCL 0.1 MG TABLET PO ×2 (09:31→20:52)
[2020-06-29] MEDS: LOSARTAN POTASSIUM 100 MG TABLET PO (09:31)
[2020-06-29] MEDS: AMIODARONE HCL 200 MG TABLET PO ×2 (09:31→17:16)
[2020-06-29] MEDS: CHLORTHALIDONE 25 MG TABLET PO (09:32)
[2020-06-29] MEDS: FUROSEMIDE 20 MG TABLET PO (09:32)
[2020-06-29] MEDS: PANTOPRAZOLE 40 MG TABLET PO ×2 (09:32→20:50)
[2020-06-29] MEDS: metOLazone 5 MG TABLET PO (09:32)
[2020-06-29] MEDS: METOPROLOL SUCCINATE EXT REL 25 MG TABCR PO (09:32)
--- NOTE | 2020-06-29 10:15 | WPDGIPROGNO ---
Progress Note: A&P Additional Plan GI [facility] for Dr. Nation 29 Jun 2020 No AP, N, V, BRBPR, melena. Aliya po VSS soft/NT Hct 21, Cr 2.8 ASSESSMENT AND PLAN: BETTE with melena on Xarelto with elevated INR: - EGD 06-28-2020 with antral gastritis could explain BETTE - NEL negative - No active bleed - Follow H+H; transfuse prn - PPI - Avoid aspirin, NSAIDS and anticoagulants - INR has been corrected - Elevated INR on Xarelto suggests underlying coagulopathy; consider other agent - Colonoscopy June, Further recommendations per Dr. Rios Blank M.D. [phone] Subjective Date/time seen: 06/29/20 10:15 Objective Data Vital Signs Vital Signs: Vital Signs - 24 hr 06/28/20 10:51 06/28/20 11:11 06/28/20 11:21 Temperature 36.6 C Pulse Rate 72 76 74 Respiratory Rate 20 20 20 Blood Pressure 151/56 H 171/53 H 170/67 H Pulse Oximetry 100 100 99 06/28/20 11:31 06/28/20 12:00 06/28/20 12:11 Temperature Pulse Rate 74 78 73 Respiratory Rate 20 20 Blood Pressure 167/67 H Pulse Oximetry 99 98 06/28/20 12:20 06/28/20 14:00 06/28/20 16:00 Temperature 35.9 C L Pulse Rate 72 78 67 Respiratory Rate 20 Blood Pressure 146/41 H Pulse Oximetry 98 06/28/20 16:26 06/28/20 17:52 06/28/20 18:00 Temperature 35.9 C L Pulse Rate 66 67 68 Respiratory Rate 23 H Blood Pressure 137/41 L Pulse Oximetry 98 06/28/20 19:48 06/28/20 19:57 06/28/20 20:00 Temperature 36.3 C L Pulse Rate 64 64 Respiratory Rate 16 Blood Pressure 131/43 L Pulse Oximetry 96 95 06/28/20 21:18 06/28/20 22:00 06/28/20 22:30 Temperature Pulse Rate 72 60 Respiratory Rate 17 Blood Pressure Pulse Oximetry 06/28/20 23:30 06/29/20 00:00 06/29/20 02:00 Temperature 36.3 C L Pulse Rate 59 L 59 L 58 L Respiratory Rate 20 Blood Pressure 121/42 L Pulse Oximetry 98 98 06/29/20 04:00 06/29/20 06:00 06/29/20 07:07 Temperature 36.6 C 36.2 C L Pulse Rate 57 L 62 62 Respiratory Rate 16 16 Blood Pressure 140/51 L 138/46 L Pulse Oximetry 97 98 06/29/20 09:31 06/29/20 09:32 Temperature Pulse Rate 65 66 Respiratory Rate Blood Pressure Pulse Oximetry Intake/Output Intake/Output: Intake & Output 06/26/20 06/27/20 06/28/20 06/29/20 23:59 23:59 23:59 23:59 Intake Total 590 2930 1563 760 Output Total 260 1125 850 800 Balance 330 1805 713 -40 Meds/Results Medications: Active Medications Generic Name Dose Route Start Last Admin Trade Name Freq PRN Reason Stop Dose Admin Albuterol 2 puff 06/26/20 20:18 Albuterol Sulfate (*Sp) Aerosol 1 Puff INHALATION Q4-6H PRN shortness of breath or wheezing Alprazolam 0.5 mg 06/26/20 20:18 Alprazolam (*Crx) 0.5 Mg Tablet PO BID PRN anxiety Amiodarone HCl 200 mg 06/27/20 08:00 06/29/20 09:31 Amiodarone Hcl 200 Mg Tablet PO 200 mg BIDWM FAISAL Administration Amlodipine Besylate 10 mg 06/27/20 09:00 06/29/20 09:30 Amlodipine Besylate 5 Mg Tablet PO 10 mg DAILY FAISAL Administration Atorvastatin Calcium 20 mg 06/28/20 21:00 06/28/20 21:19 Atorvastatin 20 Mg Tablet PO 20 mg HS FAISAL Administration Calcitriol 0.25 mcg 06/27/20 09:00 06/29/20 09:30 Calcitriol 0.25 Mcg Capsule PO 0.25 mcg DAILY FAISAL Administration Chlorthalidone 25 mg 06/27/20 09:00 06/29/20 09:32 Chlorthalidone 25 Mg Tablet PO 25 mg DAILY FAISAL Administration Clonidine HCl 0.1 mg 06/29/20 09:00 06/29/20 09:31 Clonidine Hcl 0.1 Mg Tablet PO 0.1 mg Q12HR FAISAL Administration Dextrose 12.5 gm 06/26/20 20:24 Dextrose 50% 25 Gm/50 Ml Syringe IV PUSH PRN PRN Hypoglycemia Protocol Fluticasone/Umeclidinium/Vilanterol 1 puff 06/27/20 08:00 06/29/20 09:31 Fluticasone/Umeclidin/Vilanter 100-62.5-25 Mcg Ellipta INHALATION 1 puff DAILY@0800 FAISAL Administration Furosemide 20 mg 06/27/20 09:00 06/29/20 09:32 Furosemide 20 Mg T
--- NOTE | 2020-06-29 10:45 | PM.CNCAR ---
Assessment and Plan Additional Plan This is an 80-year-old man who appears to be anemic from chronic slow GI blood loss as well as chronic kidney disease. With respect to his cardiac status he is in sinus rhythm taking amiodarone following electrical cardioversion several months ago. It would be my opinion that the risk of anticoagulation at this time is greater than the benefit and and anticoagulation should be stopped. It is certainly possible that it will be resumed in the future if his atrial fib becomes recurrent but at this point I believe it is better to discontinue it given the fact that he is anemic enough to warrant hospital care and evaluation. In this setting I will recommend nothing else. We will follow him with you while he is in the hospital he does have an appointment scheduled to see Dr. Charles in the office in the near future. Vasquez Bright MD [facility] History of Present Illness History of Present Illness Consult date/time: 06/29/20 10:45 Reason For Visit: anemia,upper gi bleeding,chronic anticoagulation Narrative: This is an 80-year-old man who sees Dr. Charles of our practice. I am seeing at the request of the hospitalist to render an opinion as to the appropriateness to continue systemic anticoagulation. The patient a history of atrial fibrillation it looks like he 1st developed this arrhythmia in April of 2019. According to the notes that are in our office record that occurred during hospitalization at [facility] when he was down there with pneumonia and some shortness of breath. He was followed up by Dr. Charles he was also seen in the office and found to be significantly anemic. He eventually had iron supplementation and was subsequently anticoagulated. His hemoglobin levels improved and they were in the range of 9-10 g he was then brought to the hospital as an outpatient on February of this year and electrically cardioverted to sinus rhythm. He was seen in the office in the end of March and sinus rhythm and was doing well. He entered the hospital last week when he was sent to the emergency room by his primary care office because he was anemic. Apparently his hemoglobin was back down to 7 g. Obviously systemic anticoagulation has been stopped. He has been transfused and is feeling better. An upper endoscopy has demonstrated evidence of some antral gastritis. Colonoscopy is scheduled for tomorrow morning. He has not had any gross hematochezia the GI doctors notes did indicate some evidence of occasional melanotic quality stool. He has not had any hematemesis. He denies any other symptoms such as chest pain palpitations orthopnea PND or edema. Review of Systems Constitutional: Constitutional: Reports lethargy Eyes: Eyes: Reports no additional eye complaints ENT: Reports system reviewed and no additional complaints, except as documented Cardiovascular: Cardiovascular: Reports no additional cardiovascular complaints Respiratory: Respiratory: Reports no additional respiratory complaints Gastrointestinal: Gastrointestinal: Reports melena Musculoskeletal: Musculoskeletal: Reports no additional musculoskeletal complaints Neurologic: Reports system reviewed and no additional complaints, except as documented Endocrine: Endocrine: Reports no additional endocrine complaints Hematologic/Lymphatic: Hematologic/Lymphatic: Reports no additional hematologic/lymphatic complaints Allergic/Immunologic: Allergic/Immunologic: Reports no additional allergic/immunologic complaints PMF Past Medical History Medical History Adenomatous colon polyp Chronic obstructive pulmonary disease CKD (chronic kidney disease) stage 4, GFR 15-29 ml/min Diabetes mellitus Hemoglobin A1c 5.09 Jun 2020 Duodenal ulcer disease Glaucoma Hyperlipidemia Iron deficiency anemia Mitral valve regurgitation [id number] noted on RODNEY February 2020 Obese SALOME (obstructive sleep apnea) CPAP of 1
[2020-06-29 11:52] LABS: Glucose Point of Care 198 mg/dl (65-105)
[2020-06-29] MEDS: SODIUM CHLORIDE 0.9% IV 250 ML 30 ML IV CONT (12:39)
[2020-06-29] MEDS: SIMETHICONE 80 MG TAB.CHEW 160 MG PO ×3 (13:11→20:52)
[2020-06-29] MEDS: BISACODYL 5 MG TABLET EC 10 MG PO ×3 (13:11→20:51)
[2020-06-29] MEDS: TUBING, BLOOD PLUM PUMP TUBING 1 EACH XX (13:13)
[2020-06-29] MEDS: polyethylene glycoL 3350 238 GM BOTTLE PO (13:13)
[2020-06-29 16:24] LABS: Glucose Point of Care 232 mg/dl (65-105)
[2020-06-29] MEDS: INSULIN ASPART (*BKC) 100 UNITS/ML SUB-Q (18:36)
[2020-06-29] MEDS: ATORVASTATIN 20 MG TABLET PO (20:50)
[2020-06-29] MEDS: INSULIN GLARGINE (*BKC) 100 UNITS/ML 12 UNITS SUB-Q (20:53)
[2020-06-29 21:12] LABS: Glucose Point of Care 171 mg/dl (65-105)
[2020-06-29] MEDS: LATANOPROST 0.005% OP SOLN 2.5 ML BTL 1 DROP EACH EYE (21:41)
[2020-06-30] VITALS (14 sets, daily range): BP systolic 89–178; BP diastolic 44–56; PULSE 59–84; RESP 19–20; TEMP 36.2–36.4; O2SAT 95–99
[2020-06-30 04:48] LABS: Hematocrit 24.1 % (42.0-52.0); Hemoglobin 8.1 g/dL (14.0-18.0); Mean Corpuscular HGB Conc 33.6 g/dl (32-36); Mean Corpuscular Hemoglobin 32.5 pg (26-34); Mean Corpuscular Volume 96.8 fl (80-100); Mean Platelet Volume 9.1 fl (7.4-10.4); Platelet Count Result 167 k/mm3 (150-375); Red Blood Count 2.49 M/mm3 (4.6-6.20); White Blood Count 8.2 K/mm3 (4.5-10.0)
[2020-06-30 05:11] LABS: Anion Gap 2 mmol/L (8-16); Blood Urea Nitrogen 40 mg/dL (9-20); Calcium 7.9 mg/dL (8.4-10.2); Carbon Dioxide 24 mmol/L (22-30); Chloride 105 mmol/L (98-107); Estimated CRCL calculation 27 ml/min; Estimated Glomerular Filt Rate 25; Glucose 121 mg/dL (75-110); Magnesium 1.8 mg/dL (1.6-2.3); Potassium 3.9 mmol/L (3.4-5.0); Sodium 131 mmol/L (137-145)
[2020-06-30 07:46] LABS: Glucose Point of Care 136 mg/dl (65-105)
--- NOTE | 2020-06-30 08:29 | P.PNAN_ITS ---
Anes - Eval Final PreProcedure Day of Procedure 06/30/20 08:29 Patient weight: obese Heart: regular rate and rhythm Lungs: clear to auscultation Airway: Mallampati scale class III Neurological: alert and oriented Last oral intake: >/= 8 hours ASA classification: IV Emergent: no Anesthetic plan: proceed Anesthesia type and monitoring: general GIVS and standard monitoring Informed Consent: The patient's anesthetic plan and its attendant risks and b enefits were discussed with the patient/family/POA. Questions were solicited and answers provided to the satisfaction of the patient/family/POA.
--- NOTE | 2020-06-30 08:29 | PM.IMPN ---
Progress Note: A&P Assessment and Plan (1) Type 2 diabetes mellitus with hyperglycemia, with long-term current use of insulin: Code(s): E11.65 - Type 2 diabetes mellitus with hyperglycemia; Z79.4 - penitentiary (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 of insulin Status: Acute (2) Acute renal failure superimposed on stage 4 chronic kidney disease: Qualifiers: Acute renal failure type: unspecified Qualified Code(s): N17.9 - Acute kidney failure, unspecified; N18.4 - Chronic kidney disease, stage 4 (severe) Code(s): N17.9 - Acute kidney failure, unspecified; N18.4 - Chronic kidney disease, stage 4 (severe) Status: Acute (3) GI bleed: Qualifiers: GI bleed type/associated pathology: unspecified gastrointestinal hemorrhage type Qualified Code(s): K92.2 - Gastrointestinal hemorrhage, unspecified Code(s): K92.2 - Gastrointestinal hemorrhage, unspecified Status: Acute (4) CKD (chronic kidney disease) stage 4, GFR 15-29 ml/min: Code(s): N18.4 - Chronic kidney disease, stage 4 (severe) Status: Acute (5) Symptomatic anemia: Code(s): D64.9 - Anemia, unspecified Status: Acute (6) Chronic anticoagulation: Code(s): Z79.01 - 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 enforcement 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 (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 of anticoagulants Status: Acute (7) SOB (shortness of breath): Code(s): R06.02 - Shortness of breath Status: Acute (8) BRONSON (generalized anxiety disorder): Code(s): F41.1 - Generalized anxiety disorder Status: Acute (9) Chronic obstructive pulmonary disease: Qualifiers: COPD type: unspecified COPD Qualified Code(s): J44.9 - Chronic obstructive pulmonary disease, unspecified Code(s): J44.9 - Chronic obstructive pulmonary disease, unspecified Status: Acute (10) SALOME (obstructive sleep apnea): Code(s): G47.33 - Obstructive sleep apnea (adult) (pediatric) Status: Acute (11) Hyperlipidemia: Code(s): E78.5 - Hyperlipidemia, unspecified Status: Acute (12) Paroxysmal A-fib: Code(s): I48.0 - Paroxysmal atrial fibrillation Status: Acute Additional Plan The patient reports melena however in the ER rectal exam demonstrated light brown stool that was Hemoccult positive. He has symptomatic anemia and is receiving 2 units of packed red blood cells. Gastroenterology has been consulted. Patient has been started on IV Protonix b.i.d.. The patient's home Xarelto has been held. Patient's blood transfusion well and shortly before time for a.m. labs. Repeat CBC has been ordered. The patient's renal function has worsened with his creatinine climbing from 3.9-4.8 in his BUN increasing from 64-78 in the last 3 months. Part of his be elevated BUN could be due to acute GI bleed. However if patient's creatinine continues to worsen we may need to consider consulting patient's unemployment benefits claims taker Dr. Boyd. Otherwise the patient has a follow-up appoint with nephrology already scheduled for next week. The patient's glucoses are moderately elevated. Patient has been resumed on his home long-acting insulin and will add sliding scale insulin with Accu-Cheks a.c. HS. Hypoglycemia protocol has been ordered. 06/27/20 cardioverted in NSR for the last 4-5 months, cont OAC ?? EGD canceled as pt w elevated PT and recent use of OAC will try to reschedule for tomorrow TALON on CKD 4 improving slowly , will consult tomorrow if GFR remains below 15 cont supportive care 06/28/20 EGD completed possible bleeding from stomach. inflammation noted. monitor off OAC daily H/H advance diet to diabetic if remains stable dc home in 24-48hrs plan to restart OAC next Tuesday06/29/20 on PPI slight drop in H/H today CLD for now cont to monitor colonoscopy tomorrow bowel prep ordered chronic renal disease w elevated BP on multiple agents, hydralazine added 25mg PO TID c/s to Cardiology -> dc off OAC d/t risk of bleeding; will f/u w Dr Charles 06/30: colonoscpy with internal hemor
[2020-06-30 11:27] LABS: Glucose Point of Care 164 mg/dl (65-105)
--- NOTE | 2020-06-30 12:09 | ECG_ITS ---
Measurements Intervals [place] Rate: 78 P: 22 WI: 215 QRS: 16 QRSD: 102 T: 17 QT: 329 QTc: 376 Interpretive Statements SINUS RHYTHM WITH FIRST DEGREE AV BLOCK NONSPECIFIC ST & T-WAVE ABNORMALITY- DIFFUSE LEADS BASELINE ARTIFACT- II, AVR, V1-V2 ABNORMAL ECG Electronically Signed On 06-30-2020 14:19:55 CDT by Michael Mccabe D.O.
[2020-06-30] MEDS: FLUTICASONE/UMECLIDIN/VILANTER 100-62.5-25 MCG ELLIPTA 1 PUFF INHALATION (12:19)
[2020-06-30] MEDS: cloNIDine HCL 0.1 MG TABLET PO (12:20)
[2020-06-30] MEDS: hydrALAZINE HCL 25 MG TABLET PO (12:20)
[2020-06-30] MEDS: PANTOPRAZOLE 40 MG TABLET PO (12:20)
[2020-06-30] MEDS: LOSARTAN POTASSIUM 100 MG TABLET PO (12:21)
[2020-06-30] MEDS: METOPROLOL SUCCINATE EXT REL 25 MG TABCR PO (12:21)
[2020-06-30] MEDS: AMIODARONE HCL 200 MG TABLET PO (12:21)
[2020-06-30] MEDS: metOLazone 5 MG TABLET PO (12:21)
[2020-06-30] MEDS: CHLORTHALIDONE 25 MG TABLET PO (12:21)
[2020-06-30] MEDS: calcitrioL 0.25 MCG CAPSULE PO (12:21)
[2020-06-30] MEDS: amLODIPine BESYLATE 5 MG TABLET 10 MG PO (12:22)
[2020-06-30] MEDS: FUROSEMIDE 20 MG TABLET PO (12:22)
[2020-06-30] MEDS: traMADol/ACETAMINOPHEN (*CRX) (ULTRACET) 37.5/325 MG TABLET 1 TAB PO (12:22)
--- NOTE | 2020-06-30 14:08 | PM.DS ---
DS: Admitting Diagnosis Admitting Diagnosis Admitting Diagnosis: severe anemia DS: Discharge Diagnosis Discharge Diagnosis (1) Acute renal failure superimposed on stage 4 chronic kidney disease: Qualifiers: Acute renal failure type: unspecified Qualified Code(s): N17.9 - Acute kidney failure, unspecified; N18.4 - Chronic kidney disease, stage 4 (severe) Code(s): N17.9 - Acute kidney failure, unspecified; N18.4 - Chronic kidney disease, stage 4 (severe) Status: Acute (2) Type 2 diabetes mellitus with hyperglycemia, with long-term current use of insulin: Code(s): E11.65 - Type 2 diabetes mellitus with hyperglycemia; Z79.4 - prison (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 of insulin Status: Acute (3) GI bleed: Qualifiers: GI bleed type/associated pathology: unspecified gastrointestinal hemorrhage type Qualified Code(s): K92.2 - Gastrointestinal hemorrhage, unspecified Code(s): K92.2 - Gastrointestinal hemorrhage, unspecified Status: Acute (4) Symptomatic anemia: Code(s): D64.9 - Anemia, unspecified Status: Acute (5) Chronic anticoagulation: Code(s): Z79.01 - prison (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 of anticoagulants Status: Acute (6) CKD (chronic kidney disease) stage 4, GFR 15-29 ml/min: Code(s): N18.4 - Chronic kidney disease, stage 4 (severe) Status: Acute (7) BETTE (iron deficiency anemia): Code(s): D50.9 - Iron deficiency anemia, unspecified Status: Acute (8) Paroxysmal A-fib: Code(s): I48.0 - Paroxysmal atrial fibrillation Status: Acute (9) SOB (shortness of breath): Code(s): R06.02 - Shortness of breath Status: Acute (10) BRONSON (generalized anxiety disorder): Code(s): F41.1 - Generalized anxiety disorder Status: Acute (11) Chronic obstructive pulmonary disease: Qualifiers: COPD type: unspecified COPD Qualified Code(s): J44.9 - Chronic obstructive pulmonary disease, unspecified Code(s): J44.9 - Chronic obstructive pulmonary disease, unspecified Status: Acute (12) SALOME (obstructive sleep apnea): Code(s): G47.33 - Obstructive sleep apnea (adult) (pediatric) Status: Acute (13) Hyperlipidemia: Code(s): E78.5 - Hyperlipidemia, unspecified Status: Acute DS: Summary Hospital Course Hospital Course: The patient reports melena however in the ER rectal exam demonstrated light brown stool that was Hemoccult positive. He has symptomatic anemia and is receiving 2 units of packed red blood cells. Gastroenterology has been consulted. Patient has been started on IV Protonix b.i.d.. The patient's home Xarelto has been held. monitored h and h and post transfusio remains stable. hemodynamics were stable as well. his renal function continues to improve from 4.8 on the day of admission to 2.5 at the time of discharge. he follows with Dr. Boyd as op basis. He was evaluted by GI with EGD whic hshowed antral gastritis, likely source of bleeding. He alos udnerwent colooscoyp which showed internal hemorroid, polyp and also diverticulosi with no signs of bleeding. He was okayed for anticoagulation to be resumed if needed by GI. cardiology was also consulted and he had recenlty had been cardioverted to NSR earliert this year. There is no evidence that the afib has been back and it was percevied that he shoudl stay off anticogulation with the severity of gi bleed he had. There is however a possilbity of paroxysms of afib that will put him at risk for stroke, which was discussed with the patient. It is however safe to stay off anticoagulation for now and resume and reassess in futur eif needed when he comes for follow up as op basis. he wanted to be discharged and hence was done with plans to follow up with GI and cardiology as op basis. Also, to be noted that GI is planning to do capsule study for his gi bleed as op basis. Time Spent with Patient Time attestation: Total time spent providing
== END 2020-06-30 14:41 | disposition home or self-care (01) | DRG 378 ==
LOC: ANHED 15:15 → ANHIMU 17:06
PROVIDERS: Emergency Medicine; Hospitalist; Internal Medicine Gastroenterology; Admitting Provider Family Medicine; Emergency Provider General Practice; PCP Family Medicine; Visit Provider Internal Medicine
PROC: 0DJ08ZZ Inspection of Upper Intestinal Tract, Via Natural or Artificial Opening Endoscopic (ICD-10-PCS; CPT 43235; principal; 2020-06-27 17:00)
PROC: 0DJD8ZZ Inspection of Lower Intestinal Tract, Via Natural or Artificial Opening Endoscopic (ICD-10-PCS; CPT 45378; principal; 2020-06-30 12:00)
DX: K29.71 Gastritis, unspecified, with bleeding (principal); N18.4 Chronic kidney disease, stage 4 (severe); N17.9 Acute kidney failure, unspecified; D64.9 Anemia, unspecified; E11.22 Type 2 diabetes mellitus with diabetic chronic kidney disease; I48.91 Unspecified atrial fibrillation; G47.33 Obstructive sleep apnea (adult) (pediatric); J44.9 Chronic obstructive pulmonary disease, unspecified; E78.5 Hyperlipidemia, unspecified; F41.1 Generalized anxiety disorder; Z79.01 Long term (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 of anticoagulants; D50.0 Iron deficiency anemia secondary to blood loss (chronic); E11.65 Type 2 diabetes mellitus with hyperglycemia; Z79.4 Long term (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 of insulin; K57.90 Diverticulosis of intestine, part unspecified, without perforation or abscess without bleeding
CPT/HCPCS: 36415; 36430; 71046; 80048; 80053; 80069; 81003; 82728; 82948; 83036; 83540; 83550; 83735; 83880; 85025; 85027; 85384; 85610; 85730; 86850; 86900; 86901; 86923; 87081; 93005; 96374; 99285; A9270; C9113; J1815; J2704; J7040; J7050; J7100; J7120; P9016

== ENCOUNTER 2020-07-09 07:48 | Outpatient (CLI) | payer MEDICARE, SELFPAY ==
[2020-07-09 08:28] LABS: Basophils Absolute Auto 0.1 K/mm3 (0.0-0.1); Basophils Percent Auto 0.8 % (0.2-1.2); Eosinophils Absolute Auto 0.3 K/mm3 (0-0.3); Eosinophils Percent Auto 4.1 % (0-4.4); Hematocrit 25.9 % (42.0-52.0); Hemoglobin 8.5 g/dL (14.0-18.0); Immature Granulocyte Absolute 0.02 K/mm3 (0.00-0.031); Immature Granulocyte Percent A 0.3 % (0-0.5); Lymphocytes Percent Auto 9.9 % (18.3-44.2); Mean Corpuscular HGB Conc 32.8 g/dl (32-36); Mean Corpuscular Hemoglobin 32.7 pg (26-34); Mean Corpuscular Volume 99.6 fl (80-100); Mean Platelet Volume 9.1 fl (7.4-10.4); Monocytes Absolute Auto 0.6 K/mm3 (0.1-0.6); Monocytes Percent Auto 9.5 % (2.6-8.5); Neutrophils Absolute Auto 4.6 K/mm3 (1.3-6.7); Neutrophils Percent Auto 75.4 % (45.5-73.1); Platelet Count Result 190 k/mm3 (150-375); Red Cell Distribution Width 13.9 % (11.5-14.5); White Blood Count 6.1 K/mm3 (4.5-10.0)
[2020-07-09 08:34] LABS: Anion Gap 10 mmol/L (8-16); Blood Urea Nitrogen 64 mg/dL (9-20); Carbon Dioxide 24 mmol/L (22-30); Chloride 109 mmol/L (98-107); Estimated Glomerular Filt Rate 15; Glucose 111 mg/dL (75-110); Potassium 4.8 mmol/L (3.4-5.0); Sodium 143 mmol/L (137-145)
== END 2020-07-09 07:49 | disposition home or self-care (01) ==
PROVIDERS: PCP Family Medicine; Visit Provider Internal Medicine
DX: N17.9 Acute kidney failure, unspecified (principal); D64.9 Anemia, unspecified
CPT/HCPCS: 36415; 80048; 85025

== ENCOUNTER 2020-07-14 06:16 | Outpatient (CLI) | payer MEDICARE, SELFPAY ==
[2020-07-09 15:55] VITALS: BMI 25.0
--- NOTE | 2020-07-10 11:44 | PC.NURSE ---
07/09/[address] SALAZAR REGARDING PT TAKES 10 UNITS OF INSULIN AT HS FRANK. HE WANTS PT TO REDUCE HIS DOSE TO 5 UNITS OF INSULIN HS ON 07/13/2020 NIGHT PRIOR TO HIS PROCEDURE. I SPOKE TO GABRIELLA, PATIENTS SPOUSE HE IS [place]AL[place] AND HAS A HARD TIME ON THE PHONE, ON 07/09/2020 REGARDING THIS AND INSTRUCTED HIM TO TAKE ONLY THE 5 UNITS THAT NIGHT AT HS ON 07/13/2020, SHE VERBALIZED UNDERSTANDING.
--- NOTE | 2020-07-14 06:52 | SUR.OPER ---
Patient brought to GI Lab. Instructions for patient undergoing Capsule Endoscopy reviewed with patient. Consent form signed. Sensor array applied to patient's abdomen and connected to recorded. Patient swallowed capsule with 16 ozs of water infused with Simethicone. Patient instructed they may have clear liquids at 8:30 this AM and eat or drink at 10:30 this AM. Patient instructed to return to GI Lab at 1500 this afternoon for removal of recording device and to call [phone] or to return to the hospital if any nausea and vomiting or abdominal pain is experienced.
--- NOTE | 2020-07-14 14:55 | SUR.PHASEII ---
Patient returned to the hospital at 1509 for recorder box removal. Patient voiced no complaints. States they have understanding of instructions. Equipment removed by patient's vehicle in drive way under pavilion.
== END 2020-07-14 06:17 | disposition home or self-care (01) ==
LOC: ANHENDO 06:17
PROVIDERS: PCP Family Medicine; Visit Provider Internal Medicine Gastroenterology
PROC: 0DJ07ZZ Inspection of Upper Intestinal Tract, Via Natural or Artificial Opening (ICD-10-PCS; CPT 91110; principal; 2020-07-14 07:00)
DX: Z01.818 Encounter for other preprocedural examination (principal); D50.9 Iron deficiency anemia, unspecified
CPT/HCPCS: 91110

== ENCOUNTER 2020-08-13 08:40 | Outpatient (CLI) | payer MEDICARE, SELFPAY ==
[2020-08-13 09:35] LABS: Basophils Absolute Auto 0.1 K/mm3 (0.0-0.1); Basophils Percent Auto 0.7 % (0.2-1.2); Eosinophils Absolute Auto 0.2 K/mm3 (0-0.3); Eosinophils Percent Auto 3.1 % (0-4.4); Hematocrit 24.9 % (42.0-52.0); Hemoglobin 8.1 g/dL (14.0-18.0); Immature Granulocyte Absolute 0.05 K/mm3 (0.00-0.031); Immature Granulocyte Percent A 0.7 % (0-0.5); Lymphocytes Absolute Auto 0.72 K/mm3 (0.9-3.2); Lymphocytes Percent Auto 9.6 % (18.3-44.2); Mean Corpuscular HGB Conc 32.5 g/dl (32-36); Mean Corpuscular Hemoglobin 31.8 pg (26-34); Mean Corpuscular Volume 97.6 fl (80-100); Mean Platelet Volume 9.3 fl (7.4-10.4); Monocytes Absolute Auto 0.7 K/mm3 (0.1-0.6); Monocytes Percent Auto 9.6 % (2.6-8.5); Neutrophils Absolute Auto 5.7 K/mm3 (1.3-6.7); Neutrophils Percent Auto 76.3 % (45.5-73.1); Platelet Count Result 169 k/mm3 (150-375); Red Blood Count 2.55 M/mm3 (4.6-6.20); Red Cell Distribution Width 14.1 % (11.5-14.5); White Blood Count 7.5 K/mm3 (4.5-10.0)
[2020-08-13 09:47] LABS: Phosphorus 4.9 mg/dL (2.5-4.5)
[2020-08-13 09:50] LABS: Alanine Aminotransferase 23 U/L (4-50); Albumin Level 3.9 g/dL (3.5-5.1); Alkaline Phosphatase 50 U/L (38-126); Anion Gap 10 mmol/L (8-16); Aspartate Amino Transferase 28 U/L (17-59); Bilirubin,Total 0.4 mg/dL (0.2-1.3); Blood Urea Nitrogen 89 mg/dL (9-20); Calcium 8.7 mg/dL (8.4-10.2); Carbon Dioxide 23 mmol/L (22-30); Chloride 105 mmol/L (98-107); Estimated Glomerular Filt Rate 11; Glucose 129 mg/dL (75-110); Potassium 5.3 mmol/L (3.4-5.0); Sodium 138 mmol/L (137-145)
[2020-08-13 10:00] LABS: Parathyroid Intact 164.1 pg/mL (7.5-53.5)
[2020-08-13 10:22] LABS: Iron 41 ug/dL (49-181)
[2020-08-13 10:31] LABS: Percent Iron Saturation 13 % (20-50)
== END 2020-08-13 08:41 | disposition home or self-care (01) ==
PROVIDERS: PCP Family Medicine; Referring Provider Internal Medicine Nephrology; Visit Provider Physician Assistant
DX: D50.9 Iron deficiency anemia, unspecified (principal); D64.9 Anemia, unspecified; N18.4 Chronic kidney disease, stage 4 (severe); N25.81 Secondary hyperparathyroidism of renal origin
CPT/HCPCS: 36415; 80053; 82728; 83540; 83550; 83970; 84100; 85025

== ENCOUNTER 2020-08-21 10:19 | Outpatient (CLI) | payer MEDICARE, SELFPAY ==
[2020-08-21 11:08] LABS: Basophils Absolute Auto 0.1 K/mm3 (0.0-0.1); Basophils Percent Auto 0.9 % (0.2-1.2); Eosinophils Absolute Auto 0.2 K/mm3 (0-0.3); Eosinophils Percent Auto 2.7 % (0-4.4); Hematocrit 25.2 % (42.0-52.0); Hemoglobin 8.1 g/dL (14.0-18.0); Immature Granulocyte Absolute 0.03 K/mm3 (0.00-0.031); Immature Granulocyte Percent A 0.4 % (0-0.5); Lymphocytes Absolute Auto 0.79 K/mm3 (0.9-3.2); Lymphocytes Percent Auto 11.7 % (18.3-44.2); Mean Corpuscular HGB Conc 32.1 g/dl (32-36); Mean Corpuscular Hemoglobin 31.6 pg (26-34); Mean Corpuscular Volume 98.4 fl (80-100); Mean Platelet Volume 9.4 fl (7.4-10.4); Monocytes Absolute Auto 0.7 K/mm3 (0.1-0.6); Monocytes Percent Auto 10.4 % (2.6-8.5); Neutrophils Percent Auto 73.9 % (45.5-73.1); Platelet Count Result 165 k/mm3 (150-375); Red Blood Count 2.56 M/mm3 (4.6-6.20); White Blood Count 6.7 K/mm3 (4.5-10.0)
[2020-08-21 11:21] LABS: Anion Gap 10 mmol/L (8-16); Blood Urea Nitrogen 68 mg/dL (9-20); Calcium 8.5 mg/dL (8.4-10.2); Carbon Dioxide 19 mmol/L (22-30); Chloride 108 mmol/L (98-107); Estimated Glomerular Filt Rate 14; Glucose 118 mg/dL (75-110); Potassium 4.7 mmol/L (3.4-5.0); Sodium 137 mmol/L (137-145)
== END 2020-08-21 10:20 | disposition home or self-care (01) ==
LOC: ANHLAB 10:22
PROVIDERS: PCP Family Medicine; Visit Provider Physician Assistant
DX: N18.4 Chronic kidney disease, stage 4 (severe) (principal); D64.9 Anemia, unspecified
CPT/HCPCS: 36415; 80048; 85025

== ENCOUNTER 2020-09-08 11:30 | Outpatient (CLI) | payer MEDICARE, SELFPAY ==
[2020-09-08 11:56] LABS: Basophils Absolute Auto 0.1 K/mm3 (0.0-0.1); Basophils Percent Auto 0.9 % (0.2-1.2); Eosinophils Absolute Auto 0.2 K/mm3 (0-0.3); Eosinophils Percent Auto 3.1 % (0-4.4); Hematocrit 25.3 % (42.0-52.0); Hemoglobin 8.5 g/dL (14.0-18.0); Immature Granulocyte Absolute 0.02 K/mm3 (0.00-0.031); Immature Granulocyte Percent A 0.3 % (0-0.5); Lymphocytes Absolute Auto 0.84 K/mm3 (0.9-3.2); Lymphocytes Percent Auto 13.2 % (18.3-44.2); Mean Corpuscular HGB Conc 33.6 g/dl (32-36); Mean Corpuscular Hemoglobin 31.7 pg (26-34); Mean Corpuscular Volume 94.4 fl (80-100); Mean Platelet Volume 8.5 fl (7.4-10.4); Monocytes Absolute Auto 0.7 K/mm3 (0.1-0.6); Monocytes Percent Auto 10.7 % (2.6-8.5); Neutrophils Absolute Auto 4.6 K/mm3 (1.3-6.7); Neutrophils Percent Auto 71.8 % (45.5-73.1); Platelet Count Result 167 k/mm3 (150-375); Red Blood Count 2.68 M/mm3 (4.6-6.20); Red Cell Distribution Width 13.8 % (11.5-14.5); White Blood Count 6.4 K/mm3 (4.5-10.0)
[2020-09-08 12:08] LABS: Anion Gap 10 mmol/L (8-16); Blood Urea Nitrogen 75 mg/dL (9-20); Calcium 9.2 mg/dL (8.4-10.2); Carbon Dioxide 24 mmol/L (22-30); Chloride 105 mmol/L (98-107); Estimated Glomerular Filt Rate 13; Glucose 121 mg/dL (65-110); Potassium 4.5 mmol/L (3.4-5.0); Sodium 139 mmol/L (137-145)
[2020-09-08 22:08] LABS: Iron 60 ug/dL (49-181)
== END 2020-09-08 11:31 | disposition home or self-care (01) ==
PROVIDERS: PCP Family Medicine
DX: N18.5 Chronic kidney disease, stage 5 (principal)
CPT/HCPCS: 36415; 80048; 82728; 83540; 85025

== ENCOUNTER 2021-01-21 09:58 | Outpatient (CLI) | payer MEDICARE, SELFPAY ==
[2021-01-21 11:24] LABS: Alanine Aminotransferase 36 U/L (4-50); Albumin Level 3.8 g/dL (3.5-5.1); Alkaline Phosphatase 59 U/L (38-126); Aspartate Amino Transferase 43 U/L (17-59); Bilirubin,Total 0.4 mg/dL (0.2-1.3)
[2021-01-21 12:02] LABS: Alanine Aminotransferase 36 U/L (4-50); Albumin Level 3.7 g/dL (3.5-5.1); Alkaline Phosphatase 61 U/L (38-126); Anion Gap 10 mmol/L (8-16); Aspartate Amino Transferase 42 U/L (17-59); Bilirubin,Total 0.4 mg/dL (0.2-1.3); Blood Urea Nitrogen 67 mg/dL (9-20); Calcium 8.5 mg/dL (8.4-10.2); Carbon Dioxide 24 mmol/L (22-30); Chloride 100 mmol/L (98-107); Estimated Glomerular Filt Rate 12; Glucose 118 mg/dL (65-110); Potassium 4.5 mmol/L (3.4-5.0); Sodium 134 mmol/L (137-145)
[2021-01-21 13:03] LABS: Hemoglobin A1C 5.8 % (<5.7)
== END 2021-01-21 09:59 | disposition home or self-care (01) ==
PROVIDERS: PCP Family Medicine; Referring Provider Nurse Practitioner Adult Health; Visit Provider Physician Assistant
DX: Z79.899 Other long term (current) drug therapy (principal)
CPT/HCPCS: 36415; 80053; 80076; 83036; 84443

== ENCOUNTER 2021-03-25 08:03 | Outpatient (CLI) | payer MEDICARE, SELFPAY ==
--- NOTE | 2021-03-31 13:33 | WPDSLEEPSTUD ---
Sleep Study Ordering Provider: Chelsie Horta PAC Interpreting Physician: Cady Hatch DO Reason for Sleep Study Known SALOME. Needs a new CPAP machine and has to requalify for PAP Therapy. Sleep History The patient is an 80-year-old male with COPD, hypertension, insulin-dependent diabetes, ESRD, hyperlipidemia and known SALOME that had a SPlit study ordered by the pulmonary office. the patient had a split night study at [facility] on 04/07/2009 that showed an AHI of 33 with desaturation down to 80%. The patient states that he has very fragmented sleep and can get 2-3 hours each time. the patient rarely awakens from sleep short of breath. He occasionally awakens at night with heartburn, belching or cough. He frequently snores loud enough others complain. He denies having trouble sleeping when he has a cold. He rarely wakes up gasping for air throughout the night. He rarely has breathing problems at night observed by others. He denies sweating excessively at night. He occasionally has heart palpitations or irregular heartbeats during the night. He frequently falls asleep during the day and occasionally falls asleep while driving. He rarely experiences loss of muscle tone when extremely emotional. He rarely experiences vivid dreamlike scenes upon awakening or falling asleep. He denies sleep paralysis. He rarely has nightmares. He rarely has thoughts racing through his mind. He frequently feels sad or depressed. He frequently has anxiety. He occasionally notices parts of his body jerk. He occasionally kicks during the night. He rarely has crawling and aching feelings in his legs as well as leg pain during the night. He denies grinding his teeth during sleep and awakening with morning jaw pain. He is frequently bothered by pain during the day and frequently awakened by pain during the night. He frequently wakes up feeling stiff in the morning with sore or achy muscles. He frequently wakes up with pain in the neck, spine and other joints. He goes to bed at 9:00 p.m. on both weekdays and weekends. It takes him 10 minutes to fall asleep. He wakes up 2-3 times per night and is able fall back asleep within a few minutes. He wakes up at 3:00 a.m. on the weekdays and 4:30 a.m. on the weekends. He typically gets 6-8 hours of sleep per night. He currently lives. He does not engage in physical exercise before bedtime. He will watch television before falling asleep. He will take naps in the afternoon or the evening and they are refreshing. The patient quit smoking cigarettes and 2003. He did will consume caffeinated beverages throughout the day. He denies alcohol and recreational drug use. [facility] Past Medical History Medical History Adenomatous colon polyp Chronic obstructive pulmonary disease CKD (chronic kidney disease) stage 4, GFR 15-29 ml/min Diabetes mellitus Hemoglobin A1c 5.09 Jun 2020 Duodenal ulcer disease Glaucoma Hyperlipidemia Iron deficiency anemia Mitral valve regurgitation [id number] noted on RODNEY February 2020 Obese SALOME (obstructive sleep apnea) CPAP of 12 Paroxysmal A-fib Primary osteoarthritis, unspecified site Thrombus of left atrial appendage Noted on RODNEY February 2020 Surgical History Surgical History History of bilateral knee replacement (~2004) History of colonoscopy with polypectomy (~12/2019) History of esophagogastroduodenoscopy (EGD) (~12/2019) History of right shoulder replacement (~2010) Status post cataract extraction of both eyes with insertion of intraocular lens Status post open reduction with internal fixation of fracture (~1977) Left lower extremity Family History Family History Mother Diabetes mellitus Heart disease Father Lung cancer Sibling Lung cancer Breast cancer Son , 52 ye
== END 2021-03-26 05:14 | disposition home or self-care (01) ==
LOC: ANHCSM 08:03
PROVIDERS: PCP Family Medicine; Visit Provider Physician Assistant
DX: G47.33 Obstructive sleep apnea (adult) (pediatric) (principal)
CPT/HCPCS: 95811

== ENCOUNTER 2021-04-30 13:51 | Outpatient (CLI) | payer MEDICARE, SELFPAY ==
[2021-04-30 14:25] LABS: Basophils Absolute Auto 0.1 K/mm3 (0.0-0.1); Basophils Percent Auto 0.5 % (0.2-1.2); Eosinophils Absolute Auto 0.4 K/mm3 (0-0.3); Eosinophils Percent Auto 2.3 % (0-4.4); Hematocrit 29.5 % (42.0-52.0); Hemoglobin 9.8 g/dL (14.0-18.0); Immature Granulocyte Absolute 0.44 K/mm3 (0.00-0.031); Immature Granulocyte Percent A 2.7 % (0-0.5); Lymphocytes Absolute Auto 0.82 K/mm3 (0.9-3.2); Mean Corpuscular HGB Conc 33.2 g/dl (32-36); Mean Corpuscular Hemoglobin 30.9 pg (26-34); Mean Corpuscular Volume 93.1 fl (80-100); Monocytes Percent Auto 6.2 % (2.6-8.5); Neutrophils Absolute Auto 13.6 K/mm3 (1.3-6.7); Neutrophils Percent Auto 83.3 % (45.5-73.1); Platelet Count Result 236 k/mm3 (150-375); Red Blood Count 3.17 M/mm3 (4.6-6.20); Red Cell Distribution Width 17.8 % (11.5-14.5); White Blood Count 16.3 K/mm3 (4.5-10.0)
[2021-04-30 14:37] LABS: Alanine Aminotransferase 71 U/L (4-50); Albumin Level 3.4 g/dL (3.5-5.1); Alkaline Phosphatase 94 U/L (38-126); Anion Gap 7 mmol/L (8-16); Aspartate Amino Transferase 68 U/L (17-59); Bilirubin,Total 0.6 mg/dL (0.2-1.3); Blood Urea Nitrogen 103 mg/dL (9-20); Calcium 8.4 mg/dL (8.4-10.2); Carbon Dioxide 29 mmol/L (22-30); Chloride 96 mmol/L (98-107); Estimated Glomerular Filt Rate 13; Glucose 158 mg/dL (65-110); Potassium 3.2 mmol/L (3.4-5.0); Sodium 132 mmol/L (137-145)
[2021-04-30 14:41] LABS: Hemoglobin A1C 6.1 % (<5.7)
[2021-04-30 14:59] LABS: Atypical Lymphocytes Present; Platelet Estimate Adequate (Adequate)
[2021-04-30 16:44] LABS: Iron 27 ug/dL (49-181)
[2021-04-30 16:54] LABS: Percent Iron Saturation 15 % (20-50)
== END 2021-04-30 13:52 | disposition home or self-care (01) ==
LOC: ANHLAB 13:56
PROVIDERS: PCP Family Medicine; Visit Provider Physician Assistant
DX: D64.9 Anemia, unspecified (principal); D50.0 Iron deficiency anemia secondary to blood loss (chronic); E11.65 Type 2 diabetes mellitus with hyperglycemia; N18.4 Chronic kidney disease, stage 4 (severe); Z79.4 Long term (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 of insulin; E11.29 Type 2 diabetes mellitus with other diabetic kidney complication; I12.9 Hypertensive chronic kidney disease with stage 1 through stage 4 chronic kidney disease, or unspecified chronic kidney disease
CPT/HCPCS: 36415; 80053; 82728; 83036; 83540; 83550; 85025

== ENCOUNTER 2021-05-07 13:50 | Outpatient (CLI) | payer MEDICARE, SELFPAY ==
[2021-05-07 14:31] LABS: Basophils Absolute Auto 0.1 K/mm3 (0.0-0.1); Basophils Percent Auto 0.4 % (0.2-1.2); Eosinophils Absolute Auto 0.1 K/mm3 (0-0.3); Eosinophils Percent Auto 1.2 % (0-4.4); Hematocrit 32.5 % (42.0-52.0); Hemoglobin 10.6 g/dL (14.0-18.0); Immature Granulocyte Absolute 0.15 K/mm3 (0.00-0.031); Immature Granulocyte Percent A 1.3 % (0-0.5); Lymphocytes Absolute Auto 0.79 K/mm3 (0.9-3.2); Lymphocytes Percent Auto 6.9 % (18.3-44.2); Mean Corpuscular HGB Conc 32.6 g/dl (32-36); Mean Corpuscular Hemoglobin 30.8 pg (26-34); Mean Corpuscular Volume 94.5 fl (80-100); Mean Platelet Volume 8.7 fl (7.4-10.4); Monocytes Absolute Auto 0.7 K/mm3 (0.1-0.6); Monocytes Percent Auto 6.4 % (2.6-8.5); Neutrophils Absolute Auto 9.5 K/mm3 (1.3-6.7); Neutrophils Percent Auto 83.8 % (45.5-73.1); Platelet Count Result 327 k/mm3 (150-375); Red Blood Count 3.44 M/mm3 (4.6-6.20); Red Cell Distribution Width 17.5 % (11.5-14.5); White Blood Count 11.4 K/mm3 (4.5-10.0)
[2021-05-07 14:35] LABS: Add Urine Microscopic? NO; Appearance Urine Clear (Clear); Bilirubin Urine Negative (Negative); Blood Urine Negative (Negative); Color Urine Straw (Yellow); Glucose Urine UA Negative (Negative); Ketones Urine Negative (Negative); Leukocyte Esterase Ur Negative LEU/UL (NEGATIVE); Nitrate Urine Negative (Negative); Protein Urine Negative (Negative); Specific Grav Ur 1.009 (1.001-1.035); Urobilinogen Urine Negative mg/dL (<2.0)
[2021-05-07 14:44] LABS: Alanine Aminotransferase 45 U/L (4-50); Albumin Level 3.7 g/dL (3.5-5.1); Alkaline Phosphatase 86 U/L (38-126); Anion Gap 8 mmol/L (8-16); Aspartate Amino Transferase 49 U/L (17-59); Bilirubin,Total 0.7 mg/dL (0.2-1.3); Blood Urea Nitrogen 81 mg/dL (9-20); Calcium 8.8 mg/dL (8.4-10.2); Carbon Dioxide 25 mmol/L (22-30); Chloride 100 mmol/L (98-107); Estimated Glomerular Filt Rate 15; Glucose 138 mg/dL (65-110); Potassium 4.1 mmol/L (3.4-5.0); Sodium 133 mmol/L (137-145)
[2021-05-07 14:52] LABS: NT Pro B Type Natriuretic Pept 919 pg/mL (5-100)
== END 2021-05-07 13:51 | disposition home or self-care (01) ==
PROVIDERS: PCP Family Medicine; Visit Provider Physician Assistant
DX: D64.9 Anemia, unspecified (principal); D72.819 Decreased white blood cell count, unspecified; I50.9 Heart failure, unspecified; N17.9 Acute kidney failure, unspecified; N18.4 Chronic kidney disease, stage 4 (severe); R06.02 Shortness of breath
CPT/HCPCS: 36415; 80053; 81003; 82728; 83880; 85025; 87077; 87086; 87186

== ENCOUNTER 2021-06-18 13:02 | Outpatient (CLI) | payer MEDICARE, SELFPAY ==
[2021-06-18 13:30] LABS: Basophils Absolute Auto 0.1 K/mm3 (0.0-0.1); Basophils Percent Auto 1.1 % (0.2-1.2); Eosinophils Absolute Auto 0.3 K/mm3 (0-0.3); Eosinophils Percent Auto 3.9 % (0-4.4); Hematocrit 34.2 % (42.0-52.0); Hemoglobin 11.2 g/dL (14.0-18.0); Immature Granulocyte Absolute 0.06 K/mm3 (0.00-0.031); Immature Granulocyte Percent A 0.8 % (0-0.5); Lymphocytes Absolute Auto 0.94 K/mm3 (0.9-3.2); Lymphocytes Percent Auto 11.8 % (18.3-44.2); Mean Corpuscular HGB Conc 32.7 g/dl (32-36); Mean Corpuscular Hemoglobin 33.2 pg (26-34); Mean Corpuscular Volume 101.5 fl (80-100); Mean Platelet Volume 8.7 fl (7.4-10.4); Monocytes Absolute Auto 0.7 K/mm3 (0.1-0.6); Monocytes Percent Auto 8.9 % (2.6-8.5); Neutrophils Absolute Auto 5.9 K/mm3 (1.3-6.7); Neutrophils Percent Auto 73.5 % (45.5-73.1); Platelet Count Result 155 k/mm3 (150-375); Red Blood Count 3.37 M/mm3 (4.6-6.20); Red Cell Distribution Width 16.1 % (11.5-14.5)
[2021-06-18 13:35] LABS: Appearance Urine Clear (Clear); Bilirubin Urine Negative (Negative); Color Urine Yellow (Yellow); Glucose Urine UA Negative (Negative); Ketones Urine Negative (Negative); Leukocyte Esterase Ur Negative LEU/UL (NEGATIVE); Nitrate Urine Negative (Negative); Protein Urine Negative (Negative); Urobilinogen Urine 0.2 mg/dL (<2.0)
[2021-06-18 13:44] LABS: Mucus Urine Rare /lpf; RBC Urine 0-2 /hpf (0-2); Squamous Epithelial Cell Urine Rare /hpf (Few)
[2021-06-18 13:55] LABS: Add Urine Microscopic? YES; Blood Urine Trace-Intact (Negative)
[2021-06-18 15:40] LABS: Iron 86 ug/dL (49-181)
[2021-06-18 15:53] LABS: Percent Iron Saturation 35 % (20-50)
== END 2021-06-18 13:03 | disposition home or self-care (01) ==
LOC: ANHLAB 13:06
PROVIDERS: PCP Family Medicine; Visit Provider Physician Assistant
DX: D50.0 Iron deficiency anemia secondary to blood loss (chronic) (principal); D50.9 Iron deficiency anemia, unspecified; K92.2 Gastrointestinal hemorrhage, unspecified; R31.9 Hematuria, unspecified
CPT/HCPCS: 36415; 81001; 82728; 83540; 83550; 85025; 87086; 87088

== ENCOUNTER 2021-08-22 08:31 | Outpatient (CLI) | payer MEDICARE, SELFPAY ==
[2021-08-22 09:32] LABS: Basophils Absolute Auto 0.1 K/mm3 (0.0-0.1); Basophils Percent Auto 0.8 % (0.2-1.2); Eosinophils Absolute Auto 0.3 K/mm3 (0-0.3); Eosinophils Percent Auto 2.5 % (0-4.4); Hematocrit 35.9 % (42.0-52.0); Hemoglobin 12.1 g/dL (14.0-18.0); Immature Granulocyte Absolute 0.11 K/mm3 (0.00-0.031); Immature Granulocyte Percent A 0.9 % (0-0.5); Lymphocytes Absolute Auto 1.01 K/mm3 (0.9-3.2); Lymphocytes Percent Auto 8.5 % (18.3-44.2); Mean Corpuscular HGB Conc 33.7 g/dl (32-36); Mean Corpuscular Hemoglobin 34.2 pg (26-34); Mean Corpuscular Volume 101.4 fl (80-100); Mean Platelet Volume 8.8 fl (7.4-10.4); Monocytes Absolute Auto 0.8 K/mm3 (0.1-0.6); Monocytes Percent Auto 6.3 % (2.6-8.5); Neutrophils Absolute Auto 9.7 K/mm3 (1.3-6.7); Platelet Count Result 206 k/mm3 (150-375); Red Blood Count 3.54 M/mm3 (4.6-6.20); Red Cell Distribution Width 14.3 % (11.5-14.5); White Blood Count 11.9 K/mm3 (4.5-10.0)
[2021-08-22 09:40] LABS: Alanine Aminotransferase 39 U/L (6-50); Albumin Level 3.4 g/dL (3.5-5.1); Alkaline Phosphatase 57 U/L (38-126); Anion Gap 11 mmol/L (8-16); Aspartate Amino Transferase 33 U/L (17-59); Bilirubin,Total 0.6 mg/dL (0.2-1.3); Blood Urea Nitrogen 67 mg/dL (9-20); Calcium 7.9 mg/dL (8.4-10.2); Carbon Dioxide 24 mmol/L (22-30); Chloride 99 mmol/L (98-107); Estimated Glomerular Filt Rate 16; Glucose 198 mg/dL (65-110); Potassium 3.9 mmol/L (3.4-5.0); Sodium 134 mmol/L (137-145)
[2021-08-22 10:09] LABS: Iron 89 ug/dL (49-181)
[2021-08-22 10:18] LABS: Percent Iron Saturation 34 % (20-50)
[2021-08-22 10:54] LABS: Hemoglobin A1C 6.3 % (<5.7)
== END 2021-08-22 08:32 | disposition home or self-care (01) ==
PROVIDERS: PCP Family Medicine; Visit Provider Physician Assistant
DX: D64.9 Anemia, unspecified (principal); E11.65 Type 2 diabetes mellitus with hyperglycemia; Z79.4 Long term (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 of insulin; N17.9 Acute kidney failure, unspecified; N18.4 Chronic kidney disease, stage 4 (severe)
CPT/HCPCS: 36415; 80053; 82728; 83036; 83540; 83550; 85025

== ENCOUNTER 2022-02-16 09:37 | Outpatient (CLI) | payer MEDICARE, SELFPAY ==
[2022-02-16 10:18] LABS: Alanine Aminotransferase 63 U/L (6-50); Albumin Level 3.7 g/dL (3.5-5.1); Alkaline Phosphatase 74 U/L (38-126); Anion Gap 7 mmol/L (8-16); Aspartate Amino Transferase 44 U/L (17-59); Bilirubin,Total 0.5 mg/dL (0.2-1.3); Blood Urea Nitrogen 53 mg/dL (9-20); Calcium 8.5 mg/dL (8.4-10.2); Carbon Dioxide 30 mmol/L (22-30); Chloride 97 mmol/L (98-107); Estimated Glomerular Filt Rate 16; Glucose 159 mg/dL (65-110); Potassium 3.9 mmol/L (3.4-5.0); Sodium 134 mmol/L (137-145)
[2022-02-16 10:38] LABS: Add Urine Microscopic? NO; Appearance Urine Clear (Clear); Bilirubin Urine Negative (Negative); Blood Urine Negative (Negative); Color Urine Yellow (Yellow); Glucose Urine UA Negative (Negative); Ketones Urine Negative (Negative); Leukocyte Esterase Ur Negative LEU/UL (NEGATIVE); Nitrate Urine Negative (Negative); Protein Urine Negative (Negative); Urobilinogen Urine 0.2 mg/dL (<2.0); pH Urine 6.5 (5.0-9.0)
[2022-02-16 11:31] LABS: Creatinine Urine 66.6 mg/dL
[2022-02-16 11:34] LABS: MALB Creatinine Ratio 27.3 mg/g (0-30); Microalbumin Urine Random 18.2 mg/L (0-16.7)
[2022-02-16 11:37] LABS: Hemoglobin A1C 7.4 % (<5.7)
[2022-02-16 11:50] LABS: Basophils Absolute Auto 0.1 K/mm3 (0.0-0.1); Basophils Percent Auto 0.8 % (0.2-1.2); Eosinophils Absolute Auto 0.2 K/mm3 (0-0.3); Eosinophils Percent Auto 3.8 % (0-4.4); Hematocrit 31.8 % (42.0-52.0); Hemoglobin 10.9 g/dL (14.0-18.0); Immature Granulocyte Absolute 0.02 K/mm3 (0.00-0.031); Immature Granulocyte Percent A 0.3 % (0-0.5); Lymphocytes Absolute Auto 0.83 K/mm3 (0.9-3.2); Lymphocytes Percent Auto 13.1 % (18.3-44.2); Mean Corpuscular HGB Conc 34.3 g/dl (32-36); Mean Corpuscular Hemoglobin 34.8 pg (26-34); Mean Corpuscular Volume 101.6 fl (80-100); Mean Platelet Volume 9.6 fl (7.4-10.4); Monocytes Absolute Auto 0.6 K/mm3 (0.1-0.6); Monocytes Percent Auto 10.1 % (2.6-8.5); Neutrophils Absolute Auto 4.6 K/mm3 (1.3-6.7); Neutrophils Percent Auto 71.9 % (45.5-73.1); Platelet Count Result 180 k/mm3 (150-375); Red Blood Count 3.13 M/mm3 (4.6-6.20); Red Cell Distribution Width 12.9 % (11.5-14.5); White Blood Count 6.4 K/mm3 (4.5-10.0)
== END 2022-02-16 09:38 | disposition home or self-care (01) ==
LOC: ANHLAB 09:40
PROVIDERS: PCP Family Medicine; Visit Provider Physician Assistant
DX: D50.9 Iron deficiency anemia, unspecified (principal); D64.9 Anemia, unspecified; E11.29 Type 2 diabetes mellitus with other diabetic kidney complication; E11.65 Type 2 diabetes mellitus with hyperglycemia; E78.5 Hyperlipidemia, unspecified; N17.9 Acute kidney failure, unspecified; Z79.4 Long term (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 of insulin; I12.9 Hypertensive chronic kidney disease with stage 1 through stage 4 chronic kidney disease, or unspecified chronic kidney disease; N18.4 Chronic kidney disease, stage 4 (severe)
CPT/HCPCS: 36415; 80053; 81003; 82043; 83036; 84443; 85025

== ENCOUNTER 2022-06-24 10:59 | Outpatient (CLI) | payer MEDICARE, SELFPAY ==
[2022-06-24 11:40] LABS: Basophils Absolute Auto 0.1 K/mm3 (0.0-0.1); Basophils Percent Auto 0.6 % (0.2-1.2); Eosinophils Absolute Auto 0.2 K/mm3 (0-0.3); Eosinophils Percent Auto 2.5 % (0-4.4); Hematocrit 31.1 % (42.0-52.0); Hemoglobin 10.9 g/dL (14.0-18.0); Immature Granulocyte Absolute 0.03 K/mm3 (0.00-0.031); Immature Granulocyte Percent A 0.3 % (0-0.5); Lymphocytes Absolute Auto 0.81 K/mm3 (0.9-3.2); Lymphocytes Percent Auto 9.1 % (18.3-44.2); Mean Corpuscular Hemoglobin 35.6 pg (26-34); Mean Corpuscular Volume 101.6 fl (80-100); Mean Platelet Volume 9.4 fl (7.4-10.4); Monocytes Absolute Auto 0.6 K/mm3 (0.1-0.6); Monocytes Percent Auto 6.7 % (2.6-8.5); Neutrophils Absolute Auto 7.2 K/mm3 (1.3-6.7); Neutrophils Percent Auto 80.8 % (45.5-73.1); Platelet Count Result 150 k/mm3 (150-375); Red Blood Count 3.06 M/mm3 (4.6-6.20); Red Cell Distribution Width 13.2 % (11.5-14.5); White Blood Count 8.9 K/mm3 (4.5-10.0)
[2022-06-24 11:57] LABS: Alanine Aminotransferase 25 U/L (6-50); Albumin Level 3.8 g/dL (3.5-5.1); Alkaline Phosphatase 60 U/L (38-126); Anion Gap 10 mmol/L (8-16); Aspartate Amino Transferase 33 U/L (17-59); Bilirubin,Total 0.8 mg/dL (0.2-1.3); Blood Urea Nitrogen 63 mg/dL (9-20); Calcium 8.3 mg/dL (8.4-10.2); Carbon Dioxide 28 mmol/L (22-30); Chloride 97 mmol/L (98-107); Estimated Glomerular Filt Rate 19; Glucose 264 mg/dL (65-110); Sodium 135 mmol/L (137-145)
[2022-06-24 23:15] LABS: Hemoglobin A1C 7.1 % (<5.7)
== END 2022-06-24 11:00 | disposition home or self-care (01) ==
PROVIDERS: PCP Family Medicine; Visit Provider Physician Assistant
DX: E11.65 Type 2 diabetes mellitus with hyperglycemia (principal); D64.9 Anemia, unspecified; N18.4 Chronic kidney disease, stage 4 (severe); Z79.4 Long term (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 of insulin
CPT/HCPCS: 36415; 80053; 83036; 85025

== ENCOUNTER 2022-09-22 13:04 | Outpatient (CLI) | payer MEDICARE, SELFPAY | END 2022-09-22 13:05 | disposition home or self-care (01) | LOC: ANHAUDASC 13:04 | PROVIDERS: PCP Family Medicine; Visit Provider Otolaryngology | DX: J31.0 Chronic rhinitis (principal); H90.41 Sensorineural hearing loss, unilateral, right ear, with unrestricted hearing on the contralateral side | CPT/HCPCS: 92557; 92567 ==

== ENCOUNTER 2022-10-27 13:47 | Outpatient (CLI) | payer MEDICARE, SELFPAY ==
[2022-10-27 14:12] LABS: Basophils Absolute Auto 0.1 K/mm3 (0.0-0.1); Basophils Percent Auto 0.6 % (0.2-1.2); Eosinophils Absolute Auto 0.2 K/mm3 (0-0.3); Eosinophils Percent Auto 1.7 % (0-4.4); Hematocrit 33.6 % (42.0-52.0); Hemoglobin 11.8 g/dL (14.0-18.0); Immature Granulocyte Absolute 0.03 K/mm3 (0.00-0.031); Immature Granulocyte Percent A 0.3 % (0-0.5); Lymphocytes Absolute Auto 0.93 K/mm3 (0.9-3.2); Lymphocytes Percent Auto 8.8 % (18.3-44.2); Mean Corpuscular HGB Conc 35.1 g/dl (32-36); Mean Corpuscular Hemoglobin 35.3 pg (26-34); Mean Corpuscular Volume 100.6 fl (80-100); Mean Platelet Volume 8.9 fl (7.4-10.4); Monocytes Absolute Auto 0.7 K/mm3 (0.1-0.6); Monocytes Percent Auto 6.5 % (2.6-8.5); Neutrophils Absolute Auto 8.7 K/mm3 (1.3-6.7); Neutrophils Percent Auto 82.1 % (45.5-73.1); Platelet Count Result 149 k/mm3 (150-375); Red Blood Count 3.34 M/mm3 (4.6-6.20); Red Cell Distribution Width 11.9 % (11.5-14.5); White Blood Count 10.5 K/mm3 (4.5-10.0)
[2022-10-27 14:23] LABS: Alanine Aminotransferase 25 U/L (6-50); Albumin Level 3.6 g/dL (3.5-5.1); Alkaline Phosphatase 78 U/L (38-126); Anion Gap 8 mmol/L (8-16); Aspartate Amino Transferase 32 U/L (17-59); Bilirubin,Total 0.6 mg/dL (0.2-1.3); Blood Urea Nitrogen 40 mg/dL (9-20); Calcium 8.4 mg/dL (8.4-10.2); Carbon Dioxide 28 mmol/L (22-30); Chloride 99 mmol/L (98-107); Estimated Glomerular Filt Rate 16; Glucose 289 mg/dL (65-110); Potassium 3.7 mmol/L (3.4-5.0); Sodium 135 mmol/L (137-145)
[2022-10-27 21:03] LABS: Hemoglobin A1C 6.9 % (<5.7)
== END 2022-10-27 13:48 | disposition home or self-care (01) ==
PROVIDERS: PCP Family Medicine; Visit Provider Physician Assistant
DX: D64.9 Anemia, unspecified (principal); E11.65 Type 2 diabetes mellitus with hyperglycemia; Z79.4 Long term (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 of insulin; I12.9 Hypertensive chronic kidney disease with stage 1 through stage 4 chronic kidney disease, or unspecified chronic kidney disease; N18.9 Chronic kidney disease, unspecified
CPT/HCPCS: 36415; 80053; 83036; 85025

== ENCOUNTER 2023-04-01 14:35 | Outpatient (CLI) | payer MEDICARE, SELFPAY ==
[2023-04-01 15:33] LABS: Basophils Absolute Auto 0.1 K/mm3 (0.0-0.1); Basophils Percent Auto 0.8 % (0.2-1.2); Eosinophils Absolute Auto 0.4 K/mm3 (0-0.3); Eosinophils Percent Auto 5.4 % (0-4.4); Hematocrit 33.3 % (42.0-52.0); Hemoglobin 11.3 g/dL (14.0-18.0); Immature Granulocyte Absolute 0.03 K/mm3 (0.00-0.031); Immature Granulocyte Percent A 0.4 % (0-0.5); Lymphocytes Absolute Auto 1.01 K/mm3 (0.9-3.2); Lymphocytes Percent Auto 12.8 % (18.3-44.2); Mean Corpuscular HGB Conc 33.9 g/dl (32-36); Mean Corpuscular Hemoglobin 34.7 pg (26-34); Mean Corpuscular Volume 102.1 fl (80-100); Mean Platelet Volume 9.4 fl (7.4-10.4); Monocytes Absolute Auto 0.8 K/mm3 (0.1-0.6); Monocytes Percent Auto 9.9 % (2.6-8.5); Neutrophils Absolute Auto 5.6 K/mm3 (1.3-6.7); Neutrophils Percent Auto 70.7 % (45.5-73.1); Platelet Count Result 210 k/mm3 (150-375); Red Blood Count 3.26 M/mm3 (4.6-6.20); Red Cell Distribution Width 12.8 % (11.5-14.5); White Blood Count 7.9 K/mm3 (4.5-10.0)
[2023-04-01 15:45] LABS: Alanine Aminotransferase 18 U/L (6-50); Albumin Level 3.7 g/dL (3.5-5.1); Alkaline Phosphatase 78 U/L (38-126); Anion Gap 9 mmol/L (8-16); Aspartate Amino Transferase 22 U/L (17-59); Bilirubin,Total 0.6 mg/dL (0.2-1.3); Blood Urea Nitrogen 54 mg/dL (9-20); Calcium 8.8 mg/dL (8.4-10.2); Carbon Dioxide 26 mmol/L (22-30); Chloride 99 mmol/L (98-107); Estimated Glomerular Filt Rate 18; Glucose 231 mg/dL (65-110); Potassium 4.3 mmol/L (3.4-5.0); Sodium 134 mmol/L (137-145)
== END 2023-04-01 14:36 | disposition home or self-care (01) ==
LOC: ANHLAB 14:38
PROVIDERS: PCP Family Medicine; Visit Provider Physician Assistant
DX: E11.65 Type 2 diabetes mellitus with hyperglycemia (principal); N17.9 Acute kidney failure, unspecified; N18.4 Chronic kidney disease, stage 4 (severe); Z79.01 Long term (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 of anticoagulants; Z79.4 Long term (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 of insulin
CPT/HCPCS: 36415; 80053; 83036; 85025

== ENCOUNTER 2023-06-01 13:49 | Outpatient (CLI) | payer MEDICARE, SELFPAY ==
[2023-06-01 14:10] LABS: Basophils Absolute Auto 0.1 K/mm3 (0.0-0.1); Basophils Percent Auto 0.5 % (0.2-1.2); Eosinophils Absolute Auto 0.4 K/mm3 (0-0.3); Eosinophils Percent Auto 3.7 % (0-4.4); Hematocrit 30.3 % (42.0-52.0); Hemoglobin 10.7 g/dL (14.0-18.0); Immature Granulocyte Absolute 0.04 K/mm3 (0.00-0.031); Immature Granulocyte Percent A 0.4 % (0-0.5); Lymphocytes Absolute Auto 0.88 K/mm3 (0.9-3.2); Lymphocytes Percent Auto 8.9 % (18.3-44.2); Mean Corpuscular HGB Conc 35.3 g/dl (32-36); Mean Corpuscular Hemoglobin 34.9 pg (26-34); Mean Corpuscular Volume 98.7 fl (80-100); Monocytes Percent Auto 9.7 % (2.6-8.5); Neutrophils Absolute Auto 7.6 K/mm3 (1.3-6.7); Neutrophils Percent Auto 76.8 % (45.5-73.1); Platelet Count Result 152 k/mm3 (150-375); Red Blood Count 3.07 M/mm3 (4.6-6.20); Red Cell Distribution Width 12.2 % (11.5-14.5); White Blood Count 9.9 K/mm3 (4.5-10.0)
[2023-06-01 14:22] LABS: Alanine Aminotransferase 18 U/L (6-50); Albumin Level 3.8 g/dL (3.5-5.1); Alkaline Phosphatase 63 U/L (38-126); Anion Gap 6 mmol/L (4-12); Aspartate Amino Transferase 21 U/L (17-59); Bilirubin,Total 0.8 mg/dL (0.2-1.3); Blood Urea Nitrogen 65 mg/dL (9-20); Calcium 8.8 mg/dL (8.4-10.2); Carbon Dioxide 30 mmol/L (22-30); Chloride 97 mmol/L (98-107); Estimated Glomerular Filt Rate 14; Glucose 137 mg/dL (65-110); Potassium 4.1 mmol/L (3.4-5.0); Sodium 133 mmol/L (137-145)
[2023-06-01 15:54] LABS: Erythrocyte Sedimentation Rate > 140 mm/hr (0-20)
== END 2023-06-01 13:50 | disposition home or self-care (01) ==
LOC: ANHLAB 13:50
PROVIDERS: PCP Family Medicine; Visit Provider Internal Medicine Infectious Disease
DX: T85.71XA Infection and inflammatory reaction due to peritoneal dialysis catheter, initial encounter (principal)
CPT/HCPCS: 36415; 80053; 85025; 85652

== ENCOUNTER 2023-06-24 14:50 | Outpatient (CLI) | payer MEDICARE, SELFPAY ==
[2023-06-24 15:24] LABS: Basophils Percent Auto 0.5 % (0.2-1.2); Eosinophils Absolute Auto 0.3 K/mm3 (0-0.3); Eosinophils Percent Auto 3.2 % (0-4.4); Hematocrit 29.9 % (42.0-52.0); Hemoglobin 10.7 g/dL (14.0-18.0); Immature Granulocyte Absolute 0.04 K/mm3 (0.00-0.031); Immature Granulocyte Percent A 0.5 % (0-0.5); Lymphocytes Absolute Auto 0.98 K/mm3 (0.9-3.2); Lymphocytes Percent Auto 11.7 % (18.3-44.2); Mean Corpuscular HGB Conc 35.8 g/dl (32-36); Mean Corpuscular Hemoglobin 34.5 pg (26-34); Mean Corpuscular Volume 96.5 fl (80-100); Mean Platelet Volume 9.6 fl (7.4-10.4); Monocytes Absolute Auto 0.8 K/mm3 (0.1-0.6); Neutrophils Absolute Auto 6.3 K/mm3 (1.3-6.7); Neutrophils Percent Auto 75.1 % (45.5-73.1); Platelet Count Result 175 k/mm3 (150-375); Red Cell Distribution Width 11.9 % (11.5-14.5); White Blood Count 8.4 K/mm3 (4.5-10.0)
[2023-06-24 15:59] LABS: Alanine Aminotransferase 21 U/L (6-50); Albumin Level 4.7 g/dL (3.5-5.1); Alkaline Phosphatase 65 U/L (38-126); Anion Gap 14 mmol/L (4-12); Aspartate Amino Transferase 22 U/L (17-59); Bilirubin,Total 0.6 mg/dL (0.2-1.3); Calcium 9.1 mg/dL (8.4-10.2); Carbon Dioxide 24 mmol/L (22-30); Chloride 95 mmol/L (98-107); Estimated Glomerular Filt Rate 13; Glucose 264 mg/dL (65-110); Phosphorus 3.9 mg/dL (2.5-4.5); Potassium 3.8 mmol/L (3.4-5.0); Sodium 133 mmol/L (137-145)
[2023-06-24 16:17] LABS: Parathyroid Intact 283.2 pg/mL (7.5-53.5)
[2023-06-24 17:17] LABS: Blood Urea Nitrogen 135 mg/dL (9-20)
== END 2023-06-24 14:51 | disposition home or self-care (01) ==
LOC: ANHLAB 14:54
PROVIDERS: PCP Family Medicine; Visit Provider Internal Medicine Nephrology
DX: N18.9 Chronic kidney disease, unspecified (principal); N25.81 Secondary hyperparathyroidism of renal origin
CPT/HCPCS: 36415; 80053; 83970; 84100; 85025

== ENCOUNTER 2023-07-27 07:13 | Outpatient (CLI) | payer MEDICARE, SELFPAY ==
--- NOTE | ~2023-07-27 | XR_ITS ---
XR chest 2V 07/27/2023 08:06 Indication: End-stage renal disease Procedure: 2 view chest Comparison: 06/26/2020 Findings: Heart size normal. Bibasilar infiltrates may represent atelectasis or pneumonia. No pleural effusion. No edema or pneumothorax. There is a right shoulder arthroplasty. Impression: 1: Bibasilar infiltrates may represent atelectasis and/or pneumonia. Reviewed, dictated and finalized at location B. Impression: 1: Bibasilar infiltrates may represent atelectasis and/or pneumonia.
[2023-07-27 08:04] LABS: Basophils Percent Auto 0.3 % (0.2-1.2); Eosinophils Absolute Auto 0.1 K/mm3 (0-0.3); Eosinophils Percent Auto 1.2 % (0-4.4); Hematocrit 25.3 % (42.0-52.0); Hemoglobin 9.2 g/dL (14.0-18.0); Immature Granulocyte Absolute 0.05 K/mm3 (0.00-0.031); Immature Granulocyte Percent A 0.6 % (0-0.5); Lymphocytes Absolute Auto 0.53 K/mm3 (0.9-3.2); Lymphocytes Percent Auto 6.1 % (18.3-44.2); Mean Corpuscular HGB Conc 36.4 g/dl (32-36); Mean Corpuscular Hemoglobin 34.3 pg (26-34); Mean Corpuscular Volume 94.4 fl (80-100); Mean Platelet Volume 9.5 fl (7.4-10.4); Monocytes Absolute Auto 0.7 K/mm3 (0.1-0.6); Monocytes Percent Auto 7.8 % (2.6-8.5); Neutrophils Absolute Auto 7.3 K/mm3 (1.3-6.7); Platelet Count Result 158 k/mm3 (150-375); Red Blood Count 2.68 M/mm3 (4.6-6.20); Red Cell Distribution Width 11.5 % (11.5-14.5); White Blood Count 8.7 K/mm3 (4.5-10.0)
[2023-07-27 08:20] LABS: Albumin Level 4.1 g/dL (3.5-5.1); Anion Gap 10 mmol/L (4-12); Blood Urea Nitrogen 110 mg/dL (9-20); Calcium 8.9 mg/dL (8.4-10.2); Carbon Dioxide 26 mmol/L (22-30); Chloride 87 mmol/L (98-107); Estimated Glomerular Filt Rate 15; Glucose 184 mg/dL (65-110); Phosphorus 3.4 mg/dL (2.5-4.5); Potassium 3.2 mmol/L (3.4-5.0); Sodium 123 mmol/L (137-145)
[2023-07-27 08:28] LABS: Iron 76 ug/dL (49-181)
[2023-07-27 08:37] LABS: Percent Iron Saturation 30 % (20-50)
[2023-07-27 09:22] LABS: Erythrocyte Sedimentation Rate > 140 mm/hr (0-20)
[2023-07-27 09:31] LABS: Hepatitis B Surface Anti Res Negative
[2023-07-27 10:00] LABS: Hepatitis B Surface Antigen 1.49 S/C
[2023-07-27 10:01] LABS: Hepatitis B Surface Antigen Negative (Negative); Hepatitis B Surface Antigen Re 0.18 S/C
[2023-07-28 07:29] LABS: Hepatitis B Core Ab Total NON-REACTIVE (NON-REACTIVE)
== END 2023-07-27 07:14 | disposition home or self-care (01) ==
PROVIDERS: PCP Family Medicine; Visit Provider Internal Medicine Nephrology
DX: N18.6 End stage renal disease (principal); R91.8 Other nonspecific abnormal finding of lung field
CPT/HCPCS: 36415; 71046; 80069; 82728; 83540; 83550; 85025; 85652; 86704; 86706; 87340

== ENCOUNTER 2023-08-22 07:19 | Outpatient (CLI) | payer MEDICARE, SELFPAY ==
[2023-08-22 07:49] LABS: Cholesterol 104 mg/dL (0-200); HDL Direct 32 mg/dL; Triglycerides 92 mg/dL (<150)
[2023-08-22 08:00] LABS: LDL Cholesterol Direct 55 mg/dL
[2023-08-22 09:25] LABS: Hemoglobin A1C 6.4 % (<5.7)
== END 2023-08-22 07:20 | disposition home or self-care (01) ==
PROVIDERS: PCP Family Medicine; Visit Provider Physician Assistant Medical
DX: E11.65 Type 2 diabetes mellitus with hyperglycemia (principal); E78.5 Hyperlipidemia, unspecified; G47.33 Obstructive sleep apnea (adult) (pediatric); Z79.4 Long term (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 of insulin; E66.9 Obesity, unspecified; Z68.36 Body mass index [BMI] 36.0-36.9, adult; D64.9 Anemia, unspecified; I12.9 Hypertensive chronic kidney disease with stage 1 through stage 4 chronic kidney disease, or unspecified chronic kidney disease; N18.4 Chronic kidney disease, stage 4 (severe)
CPT/HCPCS: 36415; 80061; 83036; 84443

== ENCOUNTER 2023-11-25 09:14 | Outpatient (CLI) | payer MEDICARE, SELFPAY ==
--- NOTE | ~2023-11-25 | XR_ITS ---
XR chest 2V 11/25/2023 09:40 Indication: Cough and congestion Procedure: 2 view chest Comparison: 07/27/2023 Findings: Heart size normal. Port catheter tips in the SVC. No focal air space disease, pulmonary annie ma, pleural effusion or suspected pneumothorax. Impression: 1: No acute cardiopulmonary disease. Reviewed, dictated and finalized at location B. Impression: 1: No acute cardiopulmonary disease.
[2023-11-25 10:09] LABS: Hematocrit 36.1 % (42.0-52.0); Hemoglobin 12.4 g/dL (14.0-18.0); Mean Corpuscular HGB Conc 34.3 g/dl (32-36); Mean Corpuscular Hemoglobin 33.4 pg (26-34); Mean Corpuscular Volume 97.3 fl (80-100); Mean Platelet Volume 9.4 fl (7.4-10.4); Platelet Count Result 170 k/mm3 (150-375); Red Blood Count 3.71 M/mm3 (4.6-6.20); Red Cell Distribution Width 13.1 % (11.5-14.5); White Blood Count 11.1 K/mm3 (4.5-10.0)
[2023-11-25 10:26] LABS: Alanine Aminotransferase 35 U/L (6-50); Albumin Level 4.4 g/dL (3.5-5.1); Alkaline Phosphatase 76 U/L (38-126); Anion Gap 8 mmol/L (4-12); Aspartate Amino Transferase 30 U/L (17-59); Bilirubin,Total 0.7 mg/dL (0.2-1.3); Blood Urea Nitrogen 48 mg/dL (9-20); Calcium 9.2 mg/dL (8.4-10.2); Carbon Dioxide 31 mmol/L (22-30); Chloride 93 mmol/L (98-107); Estimated Glomerular Filt Rate 21; Glucose 260 mg/dL (65-110); Potassium 4.5 mmol/L (3.4-5.0); Sodium 132 mmol/L (137-145)
== END 2023-11-25 09:15 | disposition home or self-care (01) ==
LOC: ANHIMG 09:18
PROVIDERS: PCP Family Medicine; Visit Provider Physician Assistant Medical
DX: R05.9 Cough, unspecified (principal); J44.9 Chronic obstructive pulmonary disease, unspecified; E11.29 Type 2 diabetes mellitus with other diabetic kidney complication; E11.65 Type 2 diabetes mellitus with hyperglycemia; Z79.4 Long term (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 of insulin; D64.9 Anemia, unspecified; I12.9 Hypertensive chronic kidney disease with stage 1 through stage 4 chronic kidney disease, or unspecified chronic kidney disease; N18.4 Chronic kidney disease, stage 4 (severe)
CPT/HCPCS: 36415; 71046; 80053; 83036; 85027

== ENCOUNTER 2024-02-21 11:24 | Inpatient (IN) | payer MEDICARE, SELFPAY ==
[2024-02-21] VITALS (19 sets, daily range): BP systolic 108–158; BP diastolic 56–105; PULSE 105–156; RESP 21–26; TEMP 36.7–37.2; O2SAT 91–98; BMI 34.0; BMI 34.2
--- NOTE | ~2024-02-21 | XR_ITS ---
XR chest 1V portable Ordering provider: Angelica Moe PA-C History: 83 years Male with . SOB . Comparison: November 25, 2023 FINDINGS: MEDIASTINUM: The cardiac silhouette is slightly enlarged. Right permacath with the tip overlying the superior vena cava. Congestive paulino. LUNGS: No effusions or pneumothorax. Bibasilar opacification suggestive of of atelectasis is versus pneumonia. Bilateral interstitial thic kening OTHER: No free air under the diaphragm. Degenerative changes of the spine. IMPRESSION: Bilateral basal pneumonia. Cardiomegaly with cardiac decompensation and pulmonary edema is not excluded. Bilateral interstitial pneumonitis is also possible. Reviewed, dictated and finalized at location A. L ANIMAL CARETAKER IMPRESSION: Bilateral basal pneumonia. Cardiomegaly with cardiac decompensation and pulmonary edema is not excluded. B ilateral interstitial pneumonitis is also possible.
--- NOTE | ~2024-02-21 | XR_ITS ---
EXAMINATION: XR chest 1V portable DATE: 02/28/2024 11:01 INDICATION: Congestive heart failure. TECHNIQUE: A single frontal view of the chest was obtained on 2 radiographs. COMPARISON: Chest view 02/21/2024 FINDINGS: The lung volumes are small. There are airspace opacities in right mid and lower lung zones and left lower lung zone. No pleural effusion or pneumothorax. The heart size is normal. A right inte rnal jugular central venous catheter is seen with tip in the superior vena cava. IMPRESSION: 1. Small lung volumes with stable airspace opacities in right mid and lower lung zones and left lower lung zone, consistent with atelectasis or less likely pneumonia. Reviewed, dictated and finalized at location B. GER BANQUET IMPRESSION: 1. Small lung volumes with stable airspace opacities in right mid and lower stacia g zones and left lower lung zone, consistent with atelectasis or less likely pn eumonia.
--- NOTE | ~2024-02-21 | US_ITS ---
BILATERAL LOWER EXTREMITY VENOUS ULTRASOUND Ordering provider: Keila Asher History: . lower extremity edema . Comparison: None. FINDINGS: RIGHT LOWER EXTREMITY VEINS: --COMMON FEMORAL: Patent and free of thrombus. Normal compressibility, phasic flow and augmentation. --PROXIMAL SUPERFICIAL FEMORAL: Patent and free of thrombus. Normal compressibility, phasic flow and augmentation. --DISTAL SUPERFICIAL FEMORAL: Patent and free of thrombus. Normal compressibility, phasic flow and au gmentation. --POPLITEAL: Patent and free of thrombus. Normal compressibility, phasic flow and augmentation. --POSTERIOR TIBIAL: Patent and free of thrombus. Normal compressibility, phasic flow and augmentation . LEFT LOWER EXTREMITY VEINS: --COMMON FEMORAL: Patent and free of thrombus. Normal compressibility, phasic flow and augmentation. --PROXIMAL SUPERFICIAL FEMORAL: Patent and free of thrombus. Normal compressibility, phasic flow and augmentation. --DISTAL SUPERFICIAL FEMORAL: Patent and free of thrombus. Normal compressibility, phasic flow and au gmentation. --POPLITEAL: Patent and free of thrombus. Normal compressibility, phasic flow and augmentation. --POSTERIOR TIBIAL: Patent and free of thrombus. Normal compressibility, phasic flow and augmentation . IMPRESSION: Negative bilateral lower extremity venous US. No deep vein thrombosis. Reviewed, dictated and finalized at location A. RE MODEL
--- NOTE | 2024-02-21 11:32 | ECG_ITS ---
Test Date: 2024-02-21 11:33:56 Measurements Intervals [place] Rate: 141 P: 0 NE: 0 QRS: 21 QRSD: 87 T: 16 QT: 284 QTc: 436 Interpretive Statements ATRIAL FIBRILLATION WITH RAPID VENTRICULAR RESPONSE PVC NONSPECIFIC ST & T-WAVE ABNORMALITY ABNORMAL RHYTHM ECG No previous ECG available for comparison Electronically Signed On 02-21-2024 15:28:25 PASSENGER AGENT by Pj Abreu M.D.
[2024-02-21] MEDS: dilTIAZem HCl INJ 25 MG/5 ML VIAL 10 MG IV PUSH ×2 (11:41→14:38)
[2024-02-21 11:54] LABS: Basophils Absolute Auto 0.1 K/mm3 (0.0-0.1); Basophils Percent Auto 0.4 % (0.2-1.2); Eosinophils Absolute Auto 0.1 K/mm3 (0-0.3); Eosinophils Percent Auto 0.4 % (0-4.4); Hemoglobin 11.5 g/dL (14.0-18.0); Immature Granulocyte Absolute 0.07 K/mm3 (0.00-0.031); Immature Granulocyte Percent A 0.5 % (0-0.5); Lymphocytes Absolute Auto 0.87 K/mm3 (0.9-3.2); Lymphocytes Percent Auto 6.3 % (18.3-44.2); Mean Corpuscular HGB Conc 33.8 g/dl (32-36); Mean Corpuscular Hemoglobin 33.8 pg (26-34); Mean Platelet Volume 9.6 fl (7.4-10.4); Monocytes Absolute Auto 1.2 K/mm3 (0.1-0.6); Neutrophils Absolute Auto 11.4 K/mm3 (1.3-6.7); Neutrophils Percent Auto 83.4 % (45.5-73.1); Platelet Count Result 182 k/mm3 (150-375); Red Cell Distribution Width 13.2 % (11.5-14.5); White Blood Count 13.7 K/mm3 (4.5-10.0)
[2024-02-21] MEDS: dilTIAZem 100 MG/100 ML 100 MG/100 ML BAG IV CONT (11:57)
--- NOTE | 2024-02-21 11:59 | ED_ITS ---
HPI - Arrhythmia/Palpitations General Chief Complaint: Arrhythmia/Palpitations Stated Complaint: Tachycardia Time Seen by Provider: 02/21/24 11:32 Source: patient Mode of arrival: wheelchair Limitations: no limitations History of Present Illness HPI narrative: This is a 83 year old male that presents to the ER for elevated heart rate. Reports he has been monitoring this at home the last week. He has noted his heart rate to be in the 130s-150s on his monitor. 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 Reports some shortness of breath since yesterday. He does have history of COPD. Denies chest pain. Related Data Home Medications ?Medication ?Instructions ?Recorded ?Confirmed ?Last Taken ?Type furosemide 20 mg tablet 40 mg PO QAM 04/27/19 11/24/23 03/27/20 History latanoprost 0.005 % eye drops 1 drop ophthalmic (eye) QPM 04/27/19 11/24/23 03/26/20 History Allergies Allergy/AdvReac Type Severity Reaction Status Date / Time No Known Allergies Allergy Verified 02/21/24 11:41 Review of Systems 2 Review of Systems: CONSTITUTIONAL: Denies fever CARDIOVASCULAR: Denies chest pain, and edema. RESPIRATORY: Reports dyspnea. All systems reviewed & are unremarkable except as noted in HPI and below PMFSH Past Medical History Medical History Adenomatous colon polyp Chronic obstructive pulmonary disease CKD (chronic kidney disease) stage 4, GFR 15-29 ml/min Diabetes mellitus Hemoglobin A1c 5.09 Jun 2020 Duodenal ulcer disease Glaucoma Hyperlipidemia Hypertension Iron deficiency anemia Mitral valve regurgitation [id number] noted on RODNEY February 2020 Obese SALOME (obstructive sleep apnea) APAP [id number] Paroxysmal A-fib Primary osteoarthritis, unspecified site Thrombus of left atrial appendage Noted on RODNEY February 2020 Surgical History Surgical History History of bilateral knee replacement (~2004) History of colonoscopy with polypectomy (~12/2019) History of esophagogastroduodenoscopy (EGD) (~12/2019) History of right shoulder replacement (~2010) Status post cataract extraction of both eyes with insertion of intraocular lens Status post open reduction with internal fixation of fracture (~1977) Left lower extremity Family History Family History Mother Diabetes mellitus Heart disease Father Lung cancer Sibling Lung cancer Breast cancer Son , 52 years of age Drug abuse Social History Social History Social History: He lives with his of over 56 years. They had 1 son who of a drug overdose in his early 50s. They are helping raise their grandson. He is retired from [employer]. He had a history of heavy alcohol use but quit drinking alcohol in in the . History of tobacco use and smoked 1 pack per day for approximately 50 years but quit smoking in 2002. He denies illicit substance use. He is independent in activities of daily living but ambulates with a cane. Primary care physician: Dr. Santi Roy Code status: Full code (the patient would not want long-term ventilation, tracheostomy or G-tube) Surrogate decision maker: Smoking packs per day: 1 Smoking cigarettes per day: 20.0 Years smoked: 50 Smoking pack-years: 50.00 Smoking status: Former smoker Tobacco type: cigarettes Second hand tobacco smoke exposure: Yes Smoking end date: 02/07/02 Alcohol intake: never Substance use: never Substance use type: does not use Last use: 1999 Lack of Transportation: No Lack of Food: Never True Current Housing: I Have Housing Concerned About Future Housing: YES Difficulty Paying Gas/Electric Bills: No Difficulty Paying for Meds: No Currently Unemployed: No Education: Decline to Answer Difficulty w/ Childcare or Family Care: Decline to Answer Living arrangements: with family Occupation/Education: retired Gender identity (if verbalized by the patient): Male Sexual Orientation (if Verbalized by the Patient): Straight or Heterosexual Spiritual care concerns: No Exam 2 Narrative: GENERAL: Elderly, well-nourished, and in no acute distress. HEAD: Normocephalic, atraumatic. EYES: EOMI. ENT: Nares clear, no rhinorrhea or epistaxis. Mucous membranes moist. Oropharynx without tonsillar hypertrophy exudate or other lesions. NECK: Supple. No adenopathy or masses. CHEST: No respiratory distress. Mildly diminished with rales at the bases. No rhonchi HEART: Regular rate and rhythm. No murmur heard. Normal peripheral pulses. EXTREMITIES: Normal range of motion. 1+ pitting edema to the bilateral lower extremities. SKIN: Warm, dry, no rash. NEURO: No focal deficits. Alert and oriented x3. PSYCH: Normal mood and affect Course Course Emergency Course: Patient updated on his workup and recommendation for admission Consultations Consultation #1: Spoke with hospitalist about patient and workup who accepts admission Date: 02/21/24 Consultation #2: Spoke with cardiology who will consult Date: 02/21/24 Vital Signs Vital signs: Vital Signs Temperature 98.1 F 02/21/24 11:28 Pulse Rate 156 H 02/21/24 11:28 Respiratory Rate 24 H 02/21/24 11:28 Blood Pressure 136/84 02/21/24 11:28 Pulse Oximetry 94 02/21/24 11:28 Oxygen Delivery Room Air 02/21/24 11:28 Temperature 98.1 F 02/21/24 11:28 Pulse Rate 136 H 02/21/24 13:43 Respiratory Rate 22 H 02/21/24 13:43 Blood Pressure 136/80 02/21/24 13:43 Pulse Oximetry 94 02/21/24 13:43 Oxygen Delivery Room Air 02/21/24 11:35 MDM - Arrhythmia/Palpitations MDM Narrative Medical decision making narrative: Patient presents to the emergency department for elevated heart rate from cardiology office. Noted to be in AFib with RVR with rates in the 150s initially. Given IV pushes of diltiazem and started on drip. Heart rate now in the 120s. He is afebrile and nontoxic appearing. Oxygen saturation is normal on room air. CBC with mild leukocytosis to 13.7. Metabolic panel with evidence of his chronic kidney disease. BNP 63073. Chest x-ray showing pulmonary edema. Baseline troponin is negative. Patient updated on his workup and recommendation for admission. Spoke with hospitalist about patient and workup who accepts admission. Spoke with cardiology who will consult. Consult to Nephrology placed as well Differential Diagnosis Differential diagnosis: Likely sinus tachycardia, artial fibrillation and artial flutter Lab Data Attestation: I reviewed the patient's lab results. 02/21/24 11:47 02/21/24 11:47 Labs: Lab Results 02/21/24 02/21/24 Range/Units 11:47 11:47 WBC 13.7 H (4.5-10.0) K/mm3 RBC 3.40 L (4.6-6.20) M/mm3 Hgb 11.5 L (14.0-18.0) g/dL Hct 34.0 L (42.0-52.0) % MCV 100.0 (80-100) fl MCH 33.8 (26-34) pg MCHC 33.8 (32-36) g/dl RDW 13.2 (11.5-14.5) % Plt Count 182 (150-375) k/mm3 MPV 9.6 (7.4-10.4) fl Immature Gran % (Auto) 0.5 (0-0.5) % Neut % (Auto) 83.4 H (45.5-73.1) % Lymph % (Auto) 6.3 L (18.3-44.2) % [place] % (Auto) 9.0 H (2.6-8.5) % Eos % (Auto) 0.4 (0-4.4) % Baso % (Auto) 0.4 (0.2-1.2) % Lymph # (Auto) 0.87 L (0.9-3.2) K/mm3 [place] # (Auto) 1.2 H (0.1-0.6) K/mm3 Eos # (Auto) 0.1 (0-0.3) K/mm3 Baso # (Auto) 0.1 (0.0-0.1) K/mm3 Abs Immat Gran (auto) 0.07 H (0.00-0.031) K/mm3 Absolute Neuts (auto) 11.4 H (1.3-6.7) K/mm3 Absolute Nucleated RBC 0.000 (0.0-0.012) K/mm3 Nucleated RBC % 0.0 (0.0-0.2) % PT 14.9 H (11.1-14.7) Seconds INR 1.1 APTT 49.5 H (22.3-36.8) Seconds Sodium 135 L (137-145) mmol/L Potassium 3.8 (3.4-5.0) mmol/L Chloride 94 L (98-107) mmol/L Carbon Dioxide 31 H (22-30) mmol/L Anion Gap 10 (4-12) mmol/L BUN 24 H D (9-20) mg/dL Creatinine 2.10 H (0.7-1.3) mg/dL Estim Creat Clear Calc 29 ml/min Estimated GFR 30 L (59 - ) Glucose 200 H (65-110) mg/dL Calcium 8.6 (8.4-10.2) mg/dL Magnesium 1.5 L Cancelled (1.6-2.3) mg/dL Total Bilirubin 1.3 (0.2-1.3) mg/dL AST 31 (17-59) U/L ALT 22 (6-50) U/L Alkaline Phosphatase 83 (38-126) U/L Troponin I 0.019 (0.000-0.034) ng/mL NT-Pro-B Natriuret Pep 20774 H (19.9-100) pg/mL Total Protein 7.0 (6.3-8.2) g/dL Albumin 4.1 (3.5-5.1) g/dL Imaging Data Radiologist's impression: ITS Impressions Chest X-Ray 02/21/24 12:21 IMPRESSION: Bilateral basal pneumonia. Cardiomegaly with cardiac decompensation and pulmonary edema is not excluded. Bilateral interstitial pneumonitis is also possible. Critical Care Time Critical Care Time Critical Care Time: Yes Total Critical Care Time: 35 Discharge Plan Discharge Clinical Impression: Atrial fibrillation with RVR, ESRD on dialysis Pulmonary edema Qualifiers: Chronicity: acute Qualified Code(s): J81.0 - Acute pulmonary edema Patient Disposition: Still a Patient Condition: Serious Patient Language: Turkish Prescriptions: No Action albuterol sulfate 90 mcg/actuation HFA aerosol inhaler 1 - 2 puff inhalation Q4-6H PRN (Reason: shortness of breath or wheezing) Qty: 25.5 1RF furosemide 20 mg tablet 40 mg PO QAM latanoprost 0.005 % drops 1 drop EACH EYE QPM Rx Instructions: install 1 drop in each eye @ bedtime alcohol swabs [Alcohol Prep Pads] Pads, Medicated 1 pad topical TID Qty: 100 3RF (DME) blood-glucose meter [OneTouch Ultra2 Meter] Misc See Rx Instructions .ROUTE .COMPLEX Qty: 1 0RF Dose Instruction: USE DIRECTED TO TEST 3 TIMES DAILY Rx Instructions: USE DIRECTED TO TEST 3 TIMES DAILY (DME) EasyMax Strip See Rx Instructions .ROUTE .COMPLEX Qty: 300 3RF Dose Instruction: TESTS 3X PER DAY Rx Instructions: TESTS 3X PER DAY (DME) lancets [Easy Touch Twist Lancets] 30 gauge misc See Rx Instructions .Route Qty: 300 3RF Rx Instructions: test tid hydralazine 25 mg tablet 25 mg PO TID Qty: 270 2RF atorvastatin 20 mg tablet 20 mg PO DAILY Qty: 90 2RF clonidine HCl 0.1 mg tablet 0.1 mg PO BID Qty: 180 2RF metoprolol succinate 25 mg tablet extended release 24 hr 25 mg PO DAILY Qty: 30 0RF pantoprazole 40 mg tablet,delayed release (DR/EC) 40 mg PO BID Qty: 180 2RF (DME) pen needle, diabetic [UltiCare Pen Needle] 32 gauge x 5/32 needle See Rx Instructions .ROUTE .MEDSUPPLY Qty: 100 4RF Rx Instructions: As directed to administer insulin once daily insulin glargine [Lantus Solostar U-100 Insulin] 100 unit/mL (3 mL) insulin pen See Rx Instructions .ROUTE .COMPLEX Qty: 15 1RF Dose Instruction: INJECT 10 UNITS UNDER THE SKIN AT BEDTIME Rx Instructions: INJECT 17 UNITS UNDER THE SKIN AT BEDTIME Trelegy Ellipta 100-62.5-25 mcg blister with device See Rx Instructions .ROUTE .COMPLEX Qty: 180 3RF Dose Instruction: USE 1 INHALATION DAILY Rx Instructions: USE 1 INHALATION DAILY. Rinse mouth and spit after each use amlodipine 10 mg tablet See Rx Instructions .ROUTE .COMPLEX Qty: 90 3RF Dose Instruction: TAKE 1 TABLET DAILY Rx Instructions: TAKE 1 TABLET DAILY metolazone 5 mg tablet See Rx Instructions .ROUTE .COMPLEX Qty: 90 2RF Dose Instruction: TAKE 1 TABLET DAILY Rx Instructions: TAKE 1 TABLET DAILY alprazolam [Xanax] 0.5 mg tablet 0.5 mg PO BID PRN (Reason: anxiety) Qty: 60 0RF tramadol-acetaminophen 37.5-325 mg tablet 1 tablet PO Q6H PRN (Reason: pain) Qty: 120 0RF Follow-up/Referrals: Santi Roy MD [Primary Care Provider] -
--- NOTE | 2024-02-21 12:02 | PC.NURSE ---
Lab contacted to add-on additional blood work
[2024-02-21 12:05] LABS: Alanine Aminotransferase 22 U/L (6-50); Albumin Level 4.1 g/dL (3.5-5.1); Alkaline Phosphatase 83 U/L (38-126); Anion Gap 10 mmol/L (4-12); Aspartate Amino Transferase 31 U/L (17-59); Bilirubin,Total 1.3 mg/dL (0.2-1.3); Blood Urea Nitrogen 24 mg/dL (9-20); Calcium 8.6 mg/dL (8.4-10.2); Carbon Dioxide 31 mmol/L (22-30); Chloride 94 mmol/L (98-107); Estimated CRCL calculation 29 ml/min; Estimated Glomerular Filt Rate 30; Glucose 200 mg/dL (65-110); Magnesium 1.5 mg/dL (1.6-2.3); Potassium 3.8 mmol/L (3.4-5.0); Sodium 135 mmol/L (137-145)
[2024-02-21 12:07] LABS: INR 1.1; Prothrombin Time 14.9 Seconds (11.1-14.7)
[2024-02-21 12:08] LABS: Partial Thromboplastin Time 49.5 Seconds (22.3-36.8)
[2024-02-21 12:28] LABS: NT Pro B Type Natriuretic Pept 21200 pg/mL (19.9-100); Troponin I 0.019 ng/mL (0.000-0.034)
[2024-02-21] MEDS: MAGNESIUM SULF 2 GM/WATER 50ML 2 GM/50 ML BAG IVPB (12:44)
--- NOTE | 2024-02-21 14:15 | P.HP_ITS ---
H&P: HPI History of Present Illness Date/Time: 02/21/24 14:15 Chief Complaint: Fast heart rate. 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 The patient provides the following history. Over the past week he has noticed that his heart rate has been running in the 120s to 150s on his blood pressure monitor. 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 He was taken down to the emergency department almost immediately as he was found to be in rapid atrial fibrillation with rates in the 150s. He has not really have any other complaints and denies syncope, near syncope, fever, chills, sweats, sinus congestion, sore throat, cough, chest pain, nausea, vomiting, diarrhea, dysuria, and concerns for aspiration. No sick contacts. In the ED: He has been in rapid atrial fibrillation since arrival with rates between the 120s to 150s. Blood pressures have been stable and his SpO2 is in the mid upper 90s on room air. Labs were significant for WBC count of 13.7, hemoglobin 11.5, sodium 135, chloride 94, carbon dioxide 31, BUN 24, creatinine 2.10, glucose 200, magnesium 1.5, proBNP 21,200, troponin 0.019. Chest x-ray showed bibasilar pneumonia and cardiomegaly with probable pulmonary edema. He was started on a diltiazem drip and was also given furosemide 40 mg IV and magnesium sulfate 2 g IV. He is being admitted in this setting for further treatment and evaluation as well as Cardiology consultation. Review of Systems Review of Systems: 12 systems were reviewed and are negative except for as per HPI. FOR[facility]LY [facility] Past Medical History Medical History Obstructive sleep apnea End-stage renal disease on hemodialysis Insulin dependent diabetes mellitus Paroxysmal atrial fibrillation Hypertension Mitral valve regurgitation [id number] noted on RODNEY February 2020 Thrombus of left atrial appendage noted on RODNEY in February 2020 Duodenal ulcer disease Iron deficiency anemia Glaucoma Adenomatous colon polyp Chronic obstructive pulmonary disease Hyperlipidemia Primary osteoarthritis, unspecified site Surgical History Surgical History History of cholecystectomy History of open reduction and internal fixation (ORIF) procedure (1977) repair of left lower extremity fracture History of cataract extraction with lens replacement History of right shoulder replacement (2010) History of bilateral knee replacement (2004) History of esophagogastroduodenoscopy (EGD) (12/2019) History of colonoscopy with polypectomy (12/2019) Family History Family History Mother Diabetes mellitus Heart disease Father Lung cancer Sibling Lung cancer Breast cancer Son , 52 years of age Drug abuse Social History Social History (Updated 02/21/24 @ 23:08 by Keila Asher PA-C) Social History: Surrogate medical decision maker: bessie Lauren ([phone]). Code status: Full code. Smoking packs per day: 1 Smoking cigarettes per day: 20.0 Years smoked: 50 Smoking pack-years: 50.00 Smoking status: Former smoker Tobacco type: cigarettes Second hand tobacco smoke exposure: Yes Smoking end date: 02/07/02 Alcohol intake: former Substance use: never Substance use type: does not use Last use: 2000 Do You Feel Safe in your Home?: Yes Lack of Transportation: YES Lack of Food: Never True Current Housing: I Have Housing Concerned About Future Housing: No Difficulty Paying Gas/Electric Bills: No Difficulty Paying for Meds: No Currently Unemployed: No Education: Grade School Difficulty w/ Childcare or Family Care: No Living arrangements: with family Additional living arrangements comments: Lives in [place]. His grandson whom he helped raised lives with him. Occupation/Education: retired Additional occupation/education comments: [employer] Spiritual care concerns: No Meds Home Medications and Allergies Home Medications ?Medication ?Instructions ?Recorded ?Confirmed ?Type furosemide 20 mg tablet 20 mg PO QAM 04/27/19 02/21/24 History latanoprost 0.005 % eye drops 1 drop ophthalmic (eye) QPM 04/27/19 02/21/24 His tory alcohol swabs (Alcohol Prep Pads) 1 pad topical TID #100 ea 05/13/22 02/21/24 Rx blood-glucose meter (OneTouch #1 ea 11/22/22 02/21/24 Rx Ultra2 Meter) blood sugar diagnostic (EasyMax #300 ea 04/13/23 02/21/24 Rx strips) lancets 30 gauge (Easy Touch Twist #300 ea 06/28/23 02/21/24 Rx Lancets) hydralazine 25 mg tablet 25 mg PO TID #270 tabs 07/05/23 02/21/24 Rx albuterol sulfate 90 mcg/actuation 1 - 2 puff inhalation Q4-6H PRN 08/02/23 02/21/24 Rx aerosol inhaler shortness of breath or wheezing #25.5 grams atorvastatin 20 mg tablet 20 mg PO DAILY #90 tabs 10/03/23 02/21/24 Rx clonidine HCl 0.1 mg tablet 0.1 mg PO BID #180 tabs 10/03/23 02/21/24 Rx metoprolol succinate 25 mg 25 mg PO DAILY #30 tabs 10/03/23 02/21/24 Rx tablet,extended release 24 hr pantoprazole 40 mg tablet,delayed 40 mg PO BID #180 tabs 10/03/23 02/21/24 Rx release insulin glargine 100 unit/mL (3 See Rx Instructions .Route 11/07/23 02/21/24 Rx mL) subcutaneous pen (Lantus .COMPLEX #15 mL Solostar U-100 Insulin) pen needle, diabetic 32 gauge x #100 ea 11/07/23 02/21/24 Rx 5/32 (UltiCare Pen Needle) fluticasone fur. 100 mcg-umeclid See Rx Instructions .Route 11/14/23 02/21/24 Rx 62.5 mcg-vilant 25 mcg .COMPLEX #180 ea inhalat.powder (Trelegy Ellipta) amlodipine 10 mg tablet See Rx Instructions .Route 12/12/23 02/21/24 Rx .COMPLEX #90 tabs metolazone 5 mg tablet See Rx Instructions .Route 12/28/23 02/21/24 Rx .COMPLEX #90 tabs alprazolam 0.5 mg tablet (Xanax) 0.5 mg PO BID PRN anxiety #60 tabs 02/10/24 02/21/24 Rx tramadol 37.5 mg-acetaminophen 325 1 tablet PO Q6H PRN pain #120 tabs 02/17/24 02/21/24 Rx mg tablet Allergies Allergy/AdvReac Type Severity Reaction Status Date / Time No Known Allergies Allergy Verified 02/21/24 11:41 Vital Signs Vital Signs - 24 hr 02/21/24 11:28 02/21/24 11:35 02/21/24 11:35 Temperature 98.1 F Pulse Rate 156 H 142 H Respiratory Rate 24 H Blood Pressure 136/84 Pulse Oximetry 94 92 Oxygen Delivery Room Air Room Air 02/21/24 11:57 02/21/24 12:35 02/21/24 12:36 Temperature Pulse Rate 146 H 134 H 131 H Respiratory Rate 25 H Blood Pressure 136/81 114/71 114/71 Pulse Oximetry 93 Oxygen Delivery 02/21/24 13:42 02/21/24 13:43 Temperature Pulse Rate 140 H 136 H Respiratory Rate 22 H Blood Pressure 136/80 136/80 Pulse Oximetry 94 Oxygen Delivery Exam Narrative: General: Nontoxic-appearing gentleman sitting up in bed in no acute distress. He is in good spirits. Weight: 108.4 kg. BMI: 34.3. HEENT: Normocephalic, atraumatic. PERRL, EOMI. Sclera anicteric. Oral mucosa moist. Neck: Supple. Respiratory: Respirations are nonlabored and he is speaking in full sentences. Lung sounds are a bit diminished at the bases with scattered crackles. Cardiovascular: Irregularly irregular rate and rhythm. Chest: Dialysis catheter in the right anterior chest. Gastrointestinal: Abdomen is soft, protuberant, nontender, and nondistended with positive bowel sounds. Skin: Warm and dry. No rash or lesions on limited exam. Extremities: No cyanosis or clubbing. Trace lower extremity edema. No palpable knots or cords. Peripheral pulses palpable. Neurological: Alert. Cranial nerves 2-12 are grossly intact. Speech is clear. No facial asymmetry. No gross focal deficits to casual conversation. Psychiatric: Pleasant and cooperative with normal mood and affect. Judgment and insight intact. H&P: Results Labs Labs: Short CBC 02/21/24 Range/Units 11:47 WBC 13.7 H (4.5-10.0) K/mm3 Hgb 11.5 L (14.0-18.0) g/dL Hct 34.0 L (42.0-52.0) % Plt Count 182 (150-375) k/mm3 BMP 02/21/24 11:47 Sodium 135 L Potassium 3.8 Chloride 94 L Carbon Dioxide 31 H BUN 24 H D Creatinine 2.10 H Glucose 200 H Calcium 8.6 Cardiac Enzymes 02/21/24 Range/Units 11:47 Troponin I 0.019 (0.000-0.034) ng/mL Liver Function 02/21/24 Range/Units 11:47 Total Bilirubin 1.3 (0.2-1.3) mg/dL AST 31 (17-59) U/L ALT 22 (6-50) U/L Alkaline Phosphatase 83 (38-126) U/L Albumin 4.1 (3.5-5.1) g/dL Impressions Chest X-Ray 02/21/24 12:21 IMPRESSION: Bilateral basal pneumonia. Cardiomegaly with cardiac decompensation and pulmonary edema is not excluded. Bilateral interstitial pneumonitis is also possible. Assessment and Plan Assessment and plan (1) Atrial fibrillation with rapid ventricular response: Code(s): I48.91 - Unspecified atrial fibrillation Status: Acute (2) Hypomagnesemia: Code(s): E83.42 - Hypomagnesemia Status: Acute (3) Hypertension: Code(s): I10 - Essential (primary) hypertension Status: Acute (4) End-stage renal disease on hemodialysis: Code(s): N18.6 - End stage renal disease; Z99.2 - Dependence on renal dialysis Status: Acute (5) Chronic obstructive pulmonary disease: Qualifiers: COPD type: unspecified COPD Qualified Code(s): J44.9 - Chronic obs tructive pulmonary disease, unspecified Code(s): J44.9 - Chronic obstructive pulmonary disease, unspecified Status: Acute (6) Obstructive sleep apnea: Code(s): G47.33 - Obstructive sleep apnea (adult) (pediatric) Status: Acute (7) Insulin dependent diabetes mellitus: Status: Acute Plan The patient presented to the emergency department from 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 Labs, imaging, EKG, and all reports were personally reviewed. Patient mentions that his heart rate has been quite high for the past 1 week though he remains relatively asymptomatic With regards to the rate but he has been short of breath. Chest x-ray shows pulmonary edema, pneumonia seems unlikely given lack of symptoms. He was started on a diltiazem drip in the ED with some improvement in his rates. He is only on 25 mg of metoprolol succinate today which can be titrated up for better rate control. For now we will increase that to 50 mg daily and decrease clonidine to 0.1 mg daily and adjust as needed. He is not on anticoagulation due to history of bleeding ulcers and gastritis howeve r he was found to have a left atrial appendage thrombus on RODNEY in 2020 and it may be prudent to start him back on anticoagulation however will discuss with the quarry plant crusher operator and the patient. He completed his dialysis session today and does not look overtly volume overloaded however he tells me that he is scheduled for an extra dialysis session this week due to extra weight. He was given a dose of IV furosemide and nephrology will be consulted. Magnesium was replaced and will be monitored. Blood pressures were reviewed and they are stable. No acute issues with regards to COPD. CPAP will be provided for the patient to use while hospitalized. Continue basal insulin and initiate sliding scale insulin, Accu- Cheks, and hypoglycemic protocol. His home medications will be reviewed and resumed as appropriate. Findings and treatment plan were discussed with the patient. Questions were solicited and answered to satisfaction. The patient's medical management will be taken over by the hospitalist team in a.m. Quality VTE Prophylaxis VTE prophylaxis: mechanical ordered and pharmacologic ordered Hospitalist MIPS Advance Care Plan I have confirmed that the patient's Advanced Care Plan is present, code status is documented, or surrogate decision maker is listed in patient medical record.: Yes Medication Reconciliation I have utilized all available resources to obtain, update and review the patien ts current medications (includes all prescriptions, OTC, herbals, cannabis, and nutritional supplements).: Yes
[2024-02-21] MEDS: FUROSEMIDE INJ 40 MG/4 ML VIAL IV PUSH (14:30)
[2024-02-21] MEDS: METOPROLOL TARTRATE 25 MG TABLET PO (17:31)
[2024-02-21 18:25] LABS: CRP 13.1 mg/dL (<1.0)
[2024-02-21 18:34] LABS: Procalcitonin 0.3 ng/mL
[2024-02-21 18:53] LABS: Hemoglobin A1C 6.8 % (<5.7)
[2024-02-21 19:59] LABS: Glucose Point of Care 160 mg/dl (65-105)
--- NOTE | 2024-02-21 19:59 | ADMGEN ---
This patient, Leobardo Reyes, was admitted to IMU Room 206-02. Patient/family oriented to hospital policies and general routines including ID bracelet, bed and alarms, visiting hours, pain management, procedures, bathroom and other care routines, personal items, smoking policy, room service/diet, and visiting hours. Information on how to activate the Rapid Response Team has been discussed. Patient/Family are encouraged to report perceived risks to care and to ask questions if they do not understand what they are told or what they should do.
[2024-02-21] MEDS: HEPARIN SODIUM 5,000 UNITS/ML VIAL 5000 UNITS SUB-Q (21:47)
[2024-02-22] VITALS (34 sets, daily range): BP systolic 101–145; BP diastolic 52–94; PULSE 96–159; RESP 18–24; TEMP 36.6–37.5; O2SAT 93–98
[2024-02-22] MEDS: dilTIAZem 100 MG/100 ML 100 MG/100 ML BAG 15 MG IV CONT ×4 (00:42→21:10)
[2024-02-22] MEDS: PANTOPRAZOLE 40 MG TABLET PO ×3 (00:44→16:55)
[2024-02-22] MEDS: hydrALAZINE HCL 25 MG TABLET PO ×4 (00:44→16:55)
[2024-02-22] MEDS: LATANOPROST 0.005% OP SOLN 2.5 ML BTL 1 DROP EACH EYE ×2 (00:44→16:55)
[2024-02-22 04:16] LABS: Hematocrit 31.3 % (42.0-52.0); Hemoglobin 10.8 g/dL (14.0-18.0); Mean Corpuscular HGB Conc 34.5 g/dl (32-36); Mean Corpuscular Hemoglobin 34.4 pg (26-34); Mean Corpuscular Volume 99.7 fl (80-100); Mean Platelet Volume 9.6 fl (7.4-10.4); Platelet Count Result 155 k/mm3 (150-375); Red Blood Count 3.14 M/mm3 (4.6-6.20); Red Cell Distribution Width 13.2 % (11.5-14.5); White Blood Count 9.8 K/mm3 (4.5-10.0)
[2024-02-22 04:33] LABS: Anion Gap 9 mmol/L (4-12); Blood Urea Nitrogen 34 mg/dL (9-20); Calcium 8.9 mg/dL (8.4-10.2); Carbon Dioxide 29 mmol/L (22-30); Chloride 94 mmol/L (98-107); Estimated CRCL calculation 21 ml/min; Estimated Glomerular Filt Rate 20; Glucose 143 mg/dL (65-110); Magnesium 2.2 mg/dL (1.6-2.3); Potassium 3.9 mmol/L (3.4-5.0); Sodium 132 mmol/L (137-145)
[2024-02-22] MEDS: FLUTICASONE/UMECLIDIN/VILANTER 100-62.5-25 MCG ELLIPTA 1 PUFF INHALATION (07:08)
[2024-02-22 07:47] LABS: Glucose Point of Care 152 mg/dl (65-105)
--- NOTE | 2024-02-22 08:27 | P.PNIM_ITS ---
Progress Note: A&P Assessment and Plan (1) Atrial fibrillation with rapid ventricular response: Code(s): I48.91 - Unspecified atrial fibrillation Status: Acute (2) Hypomagnesemia: Code(s): E83.42 - Hypomagnesemia Status: Acute (3) Hypertension: Code(s): I10 - Essential (primary) hypertension Status: Acute (4) End-stage renal disease on hemodialysis: Code(s): N18.6 - End stage renal disease; Z99.2 - Dependence on renal dialysis Status: Acute (5) Chronic obstructive pulmonary disease: Qualifiers: COPD type: unspecified COPD Qualified Code(s): J44.9 - Chronic obstructive pulmonary disease, unspecified Code(s): J44.9 - Chronic obstructive pulmonary disease, unspecified Status: Acute (6) Obstructive sleep apnea: Code(s): G47.33 - Obstructive sleep apnea (adult) (pediatric) Status: Acute (7) Insulin dependent diabetes mellitus: Status: Acute Plan This is a very pleasant 83-year-old male with paroxysmal atrial fibrillation no longer on chronic anticoagulation due to GI bleeding, duodenal ulcers, 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 proBNP 21,200, troponin 0.019. Chest x-ray showed bibasilar pneumonia and cardiomegaly with probable pulmonary edema. 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 Chest x-ray shows pulmonary edema, He was started on a diltiazem drip in the ED with some improvement in his rates. He is only on 25 mg of metoprolol succinate today which can be titrated up for better rate control. For now we will increase that to 50 mg daily and decrease clonidine to 0.1 mg daily and adjust as needed. not on anticoagulation due to history of bleeding ulcers and gastritis left atrial appendage thrombus on RODNEY in 2020 Patient may need anticoagulation Follow-up cardiology recommendation End-stage renal disease on hemodialysis Consult forms analysis manager for dialysis Chest x-ray shows pulmonary congestion Management per forms analysis manager Acute on chronic diastolic heart failure Patient's shortness breath, x-ray shows pulmonary congestion He was given a dose of IV furosemide May need more dialysis today COPD exacerbation Patient leukocytosis 13,700 upon arrival in the ED, X-ray shows bilateral basal pneumonia Start DuoNeb scheduled, albuterol nebulizer p.r.n. Follow-up ABG Start azithromycin ceftriaxone IV Type 2 diabetes Continue basal insulin and initiate sliding scale insulin, Accu-Cheks, and hypoglycemic protocol. His home medications will be reviewed and resumed as appropriate. Chronic anemia Stable Possible due to end-stage renal disease Subjective Date/time seen: 02/22/24 08:27 Interval history: Patient has tachycardia tachypnea, pulse ox 96 on 2 L oxygen, labs reviewed. Telemetry showed AFib RVR. Patient still has significant dyspnea at rest, patient feels better today. Patient has cough with scant phlegm. Patient denies chest pain. Patient has intermittent palpitation. Afebrile blood pressure stable. Labs reviewed Exam Narrative: General: Nontoxic-appearing gentleman sitting up in bed in no acute distress. He is in good spirits. Weight: 108.4 kg. BMI: 34.3. HEENT: Normocephalic, atraumatic. PERRL, EOMI. Sclera anicteric. Oral mucosa moist. Neck: Supple. Respiratory: Respirations are nonlabored and he is speaking in full sentences. Lung sounds are a bit diminished at the bases with scattered crackles. Cardiovascular: Irregularly irregular rate and rhythm. Chest: Dialysis catheter in the right anterior chest. Gastrointestinal: Abdomen is soft, protuberant, nontender, and nondistended with positive bowel sounds. Skin: Warm and dry. No rash or lesions on limited exam. Extremities: No cyanosis or clubbing. Trace lower extremity edema. No palpable knots or cords. Peripheral pulses palpable. Neurological: Alert. Cranial nerves 2-12 are grossly intact. Speech is clear. No facial asymmetry. No gross focal deficits to casual conversation. Psychiatric: Pleasant and cooperative with normal mood and affect. Judgment and insight intact. Objective Data Vital Signs Vital Signs: Vital Signs - 24 hr 02/21/24 11:28 02/21/24 11:35 02/21/24 11:35 Temperature 98.1 F Pulse Rate 156 H 142 H Respiratory Rate 24 H Blood Pressure 136/84 Pulse Oximetry 94 92 Oxygen Delivery Room Air Room Air Oxygen Flow Rate 02/21/24 11:57 02/21/24 12:35 02/21/24 12:36 Temperature Pulse Rate 146 H 134 H 131 H Respiratory Rate 25 H Blood Pressure 136/81 114/71 114/71 Pulse Oximetry 93 Oxygen Delivery Oxygen Flow Rate 02/21/24 13:42 02/21/24 13:43 02/21/24 14:31 Temperature Pulse Rate 140 H 136 H 122 H Respiratory Rate 22 H 26 H Blood Pressure 136/80 136/80 115/63 Pulse Oximetry 94 95 Oxygen Delivery Oxygen Flow Rate 02/21/24 16:30 02/21/24 17:31 02/21/24 17:45 Temperature Pulse Rate 127 H 128 H 122 H Respiratory Rate 21 H 24 H Blood Pressure 123/67 119/71 Pulse Oximetry 98 91 Oxygen Delivery Oxygen Flow Rate 02/21/24 18:40 02/21/24 18:47 02/21/24 19:00 Temperature 98.3 F Pulse Rate 108 H 112 H 108 H Respiratory Rate 23 H 26 H Blood Pressure 108/60 108/60 108/60 Pulse Oximetry 91 92 Oxygen Delivery Oxygen Flow Rate 02/21/24 19:05 02/21/24 20:00 02/21/24 20:00 Temperature 98.1 F Pulse Rate 123 H 115 H Respiratory Rate 24 H Blood Pressure 158/105 H Pulse Oximetry 91 96 Oxygen Delivery Nasal Cannula Oxygen Flow Rate 2 02/21/24 20:00 02/21/24 21:50 02/21/24 22:00 Temperature Pulse Rate 115 H 105 H 115 H Respiratory Rate Blood Pressure 158/105 H 121/66 Pulse Oximetry 96 Oxygen Delivery Oxygen Flow Rate 02/21/24 22:00 02/21/24 23:46 02/22/24 00:00 Temperature 99.0 F Pulse Rate 105 H 117 H Respiratory Rate 24 H Blood Pressure 121/66 130/56 L Pulse Oximetry 96 96 Oxygen Delivery Nasal Cannula Oxygen Flow Rate 2 02/22/24 00:00 02/22/24 00:00 02/22/24 00:40 Temperature Pulse Rate 108 H 117 H 104 H Respiratory Rate Blood Pressure 130/56 L 130/56 L Pulse Oximetry Oxygen Delivery Oxygen Flow Rate 02/22/24 00:42 02/22/24 01:43 02/22/24 02:00 Temperature Pulse Rate 104 H 114 H 109 H Respiratory Rate Blood Pressure 130/56 L 135/75 Pulse Oximetry 96 Oxygen Delivery Oxygen Flow Rate 02/22/24 02:00 02/22/24 03:10 02/22/24 03:51 Temperature 99.5 F Pulse Rate 114 H 102 H 100 Respiratory Rate 20 22 H Blood Pressure 135/75 103/60 Pulse Oximetry 95 95 Oxygen Delivery CPAP Oxygen Flow Rate 02/22/24 04:00 02/22/24 04:00 02/22/24 04:00 Temperature Pulse Rate 124 H 102 H Respiratory Rate Blood Pressure 103/60 Pulse Oximetry 95 Oxygen Delivery Nasal Cannula Oxygen Flow Rate 2 02/22/24 05:57 02/22/24 06:00 02/22/24 06:00 Temperature Pulse Rate 135 H 113 H 135 H Respiratory Rate Blood Pressure 132/69 132/69 Pulse Oximetry 98 Oxygen Delivery Oxygen Flow Rate 02/22/24 06:39 02/22/24 06:39 02/22/24 07:34 Temperature 98.8 F Pulse Rate 135 H 135 H 128 H Respiratory Rate 24 H Blood Pressure 126/61 Pulse Oximetry 96 Oxygen Delivery Oxygen Flow Rate Intake/Output Intake/Output: Intake & Output 02/19/24 02/20/24 02/21/24 02/22/24 23:59 23:59 23:59 23:59 Intake Total 114.4 774.9 Output Total 460 525 Balance -345.6 249.9 Meds/Results Medications: Active Medications Generic Name Dose Route Start Last Admin Trade Name Freq PRN Reason Stop Dose Admin Acetaminophen 650 mg 02/21/24 17:03 Acetaminophen 325 Mg Tablet PO Q6H PRN Mild Pain (1-3) or Fever Albuterol 1 - 2 puff 02/21/24 23:13 Albuterol Sulfate (*Sp) Aerosol 1 Puff INHALATION Q4-6H PRN shortness of breath or wheezing Alprazolam 0.5 mg 02/21/24 23:13 Alprazolam (*Crx) 0.5 Mg Tablet PO BID PRN anxiety Atorvastatin Calcium 20 mg 02/22/24 09:00 Atorvastatin 20 Mg Tablet PO DAILY FAISAL Clonidine HCl 0.1 mg 02/22/24 09:00 Clonidine Hcl 0.1 Mg Tablet PO DAILY FAISAL Dextrose 12.5 gm 02/21/24 17:04 Dextrose 50% 25 Gm/50 Ml Syringe IV PUSH PRN PRN Hypoglycemia Protocol Fluticasone/Umeclidinium/Vilanterol 1 puff 02/22/24 09:00 Fluticasone/Umeclidin/Vilanter 100-62.5-25 Mcg Ellipta INHALATION DAILY FAISAL Furosemide 20 mg 02/22/24 09:00 Furosemide 20 Mg Tablet PO QAM FAISAL Glucagon 1 mg 02/21/24 17:04 Glucagon For Inj 1 Mg Vial IM PRN PRN Hypoglycemia Protocol Glucose 15 gm 02/21/24 17:04 Glucose Oral Gel 15 Gm Of Glucse In 37.5 Gm Tube PO PRN PRN Hypoglycemia Protocol Heparin Sodium (Porcine) 5,000 units 02/21/24 21:00 02/21/24 21:47 Heparin Sodium 5,000 Units/Ml Vial SUB-Q 5,000 units Q12HR FAISAL Administration Hydralazine HCl 25 mg 02/21/24 23:20 02/22/24 00:44 Hydralazine Hcl 25 Mg Tablet PO 25 mg TID FAISAL Administration Dextrose 1,000 mls @ 100 mls/hr 02/21/24 17:04 Dextrose 5% 1,000 Ml IVPB PRN PRN Hypoglycemia Protocol Diltiazem HCl 100 mg in 100 mls @ 15 mls/hr 02/22/24 00:30 02/22/24 06:39 Cardizem 100 Mg/100 Ml IV CONT 15 mg/hr .Q6H40M FAISAL 15 mls/hr Administration 15 MG/HR Insulin Aspart 3 - 6 units 02/22/24 08:00 Insulin Aspart (*Bkc) 100 Units/Ml SUB-Q TIDWM [facility] Protocol Insulin Aspart 1 - 3 units 02/21/24 21:00 02/21/24 21:47 Insulin Aspart (*Bkc) 100 Units/Ml SUB-Q Not Given HS [facility] Protocol Insulin Glargine 17 units 02/22/24 21:00 Insulin Glargine (*Bkc) 100 Units/Ml SUB-Q HS [facility] Latanoprost 1 drop 02/21/24 23:25 02/22/24 00:44 Latanoprost 0.005% Op Soln 2.5 Ml Btl EACH EYE 1 drop QPM FAISAL Administration Metolazone 5 mg 02/22/24 09:00 Metolazone 5 Mg Tablet BY MOUTH DAILY FAISAL Metoprolol Succinate 50 mg 02/22/24 09:00 Metoprolol Succinate Ext Rel 50 Mg Tabcr PO QAM [facility] Pantoprazole Sodium 40 mg 02/21/24 23:25 02/22/24 00:44 Pantoprazole 40 Mg Tablet PO 40 mg BID FAISAL Administration Tramadol/Acetaminophen 1 tab 02/21/24 23:13 Tramadol/Acetaminophen (*Crx) (Ultracet) 37.5/325 Mg Tablet PO Q6H PRN PAIN RATED 4-6 Radiology Results: ITS Impressions Chest X-Ray 02/21/24 12:21 IMPRESSION: Bilateral basal pneumonia. Cardiomegaly with cardiac decompensation and pulmonary edema is not excluded. Bilateral interstitial pneumonitis is also possible. Labs Labs: Laboratory Results - last 24 hr 02/21/24 02/21/24 02/21/24 11:47 11:47 17:44 WBC 13.7 H RBC 3.40 L Hgb 11.5 L Hct 34.0 L MCV 100.0 MCH 33.8 MCHC 33.8 RDW 13.2 Plt Count 182 MPV 9.6 Immature Gran % (Auto) 0.5 Neut % (Auto) 83.4 H Lymph % (Auto) 6.3 L [place] % (Auto) 9.0 H Eos % (Auto) 0.4 Baso % (Auto) 0.4 Lymph # (Auto) 0.87 L [place] # (Auto) 1.2 H Eos # (Auto) 0.1 Baso # (Auto) 0.1 Abs Immat Gran (auto) 0.07 H Absolute Neuts (auto) 11.4 H Absolute Nucleated RBC 0.000 Nucleated RBC % 0.0 PT 14.9 H INR 1.1 APTT 49.5 H Sodium 135 L Potassium 3.8 Chloride 94 L Carbon Dioxide 31 H Anion Gap 10 BUN 24 H D Creatinine 2.10 H Estim Creat Clear Calc 29 Estimated GFR 30 L Glucose 200 H POC Capillary Glucose Hemoglobin A1c 6.8 H Calcium 8.6 Magnesium 1.5 L Cancelled Total Bilirubin 1.3 AST 31 ALT 22 Alkaline Phosphatase 83 Troponin I 0.019 0.020 C-Reactive Protein 13.1 H NT-Pro-B Natriuret Pep 04134 H Total Protein 7.0 Albumin 4.1 Procalcitonin 0.3 TSH (Reflex) 1.750 02/21/24 02/22/24 02/22/24 19:56 03:48 07:39 WBC 9.8 RBC 3.14 L Hgb 10.8 L Hct 31.3 L MCV 99.7 MCH 34.4 H MCHC 34.5 RDW 13.2 Plt Count 155 MPV 9.6 Immature Gran % (Auto) Neut % (Auto) Lymph % (Auto) [place] % (Auto) Eos % (Auto) Baso % (Auto) Lymph # (Auto) [place] # (Auto) Eos # (Auto) Baso # (Auto) Abs Immat Gran (auto) Absolute Neuts (auto) Absolute Nucleated RBC Nucleated RBC % PT INR APTT Sodium 132 L Potassium 3.9 Chloride 94 L Carbon Dioxide 29 Anion Gap 9 BUN 34 H D Creatinine 2.98 H Estim Creat Clear Calc 21 Estimated GFR 20 L Glucose 143 H POC Capillary Glucose 160 H 152 H Hemoglobin A1c Calcium 8.9 Magnesium 2.2 Total Bilirubin AST ALT Alkaline Phosphatase Troponin I C-Reactive Protein NT-Pro-B Natriuret Pep Total Protein Albumin Procalcitonin TSH (Reflex)
--- NOTE | 2024-02-22 08:41 | P.CONCA_ITS ---
Assessment and Plan Assessment and plan (1) Atrial fibrillation with rapid ventricular response: Code(s): I48.91 - Unspecified atrial fibrillation Status: Acute Assessment and Plan: Last echocardiogram from December 2022 shows preserved LVEF. Of note, RODNEY from February 2020 showed possible left atrial appendage. He was on anticoagulation at that time with Xarelto. Of note, in June 2020, he was admitted for GI bleed. EGD showed mild gastritis with no bleeding. Colonoscopy showed a few medium-sized internal hemorrhoids in the rectum, multiple diverticula, 6mm flat polyp; no bleeding. Capsule endoscopy then showed only gastritis but no bleeding. It does not appear that he has been retried on anticoagulation since then and has been off of anticoagulation since that hospitalization. CBC shows mild anemia with Hgb at 10.8. He has not had any issues with bleeding since that incident in 2020. Echocardiogram ordered and pending to reassess LVEF. As patient has not been on anticoagulation, will try to rate control him. If LVEF is normal, okay to continue with Diltiazem. If LVEF is reduced, will need to stop Diltiazem. Increase Metoprolol as tolerated, will increase to 100mg daily. If we are not able to adequately rate control him, then he will need RODNEY-guided DCCV, however, he will need to be on uninterrupted anticoagulation post cardioversion. I discussed this with the patient, and he is agreeable to undergo RODNEY-guided DCCV if needed. He is okay with being on anticoagulation if we proceed with cardioversion. I will go ahead and start him on Eliquis 2.5mg BID (given age and ESRD). Will keep him NPO at midnight for RODNEY/DCCV (with Anesthesia) tomorrow. Since he has had issues with GI bleed in the past, will have him follow up with Dr. Charles for consideration of left atrial appendage closure as an outpatient. (2) Hypertension: Code(s): I10 - Essential (primary) hypertension Status: Acute Assessment and Plan: Increased Metoprolol to 100mg once daily now In order to allow blood pressure room for rate controlling agents, recommend weaning off Clonidine. Clonidine decreased from 0.1mg PO BID to 0.1mg daily. Consider weaning off Hydralazine if additional blood pressure room needed for rate controlling meds. Will discontinue Amlodipine for now as patient on Diltiazem drip. Continue Lasix, Metolazone. (3) End-stage renal disease on hemodialysis: Code(s): N18.6 - End stage renal disease; Z99.2 - Dependence on renal dialysis Status: Acute Assessment and Plan: Nephrology consulted (4) Hyperlipidemia: Code(s): E78.5 - Hyperlipidemia, unspecified Status: Acute Assessment and Plan: Continue Atorvastatin. 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 Plan Recommendations and plan discussed with Hospitalist. History of Present Illness History of Present Illness Consult date/time: 02/22/24 08:41 Requesting physician: Angelica Moe PA-C Consult reason: atrial fibrillation Reason For Visit: Atrial fibrillation with RVR Narrative: We are consulted for atrial fibrillation with RVR. This is an 83 year old male with paroxysmal atrial fibrillation, hypertension, hyperlipidemia, type 2 diabetes mellitus, pulmonary hypertension, ESRD on HD who is admitted for atrial fibrillation with RVR. Follows with Dr. Charles. Had an EKG done in our office that showed atrial fibrillation with RVR, therefore, was sent to the ED. He has been monitoring his heart rate at home and has been 130s to 150s at home for about the past week. EKG shows atrial fibrillation with RVR. Started on Diltiazem drip in the ED. Troponins are negative at 0.019, 0.020. NT pro BNP is 21,200. TSH level normal. CXR with bilateral basal pneumonia, cardiomegaly with cardiac decompensation and pulmonary edema is not excluded; bilateral interstitial pneumonitis is also possible. Last echocardiogram from December 2022 shows preserved LVEF. Of note, RODNEY from February 2020 showed possible left atrial appendage. He was on anticoagulation at that time with Xarelto. Of note, in June 2020, he was admitted for GI bleed. EGD showed mild gastritis with no bleeding. Colonoscopy showed a few medium-sized internal hemorrhoids in the rectum, multiple diverticula, 6mm flat polyp; no bleeding. Capsule endoscopy then showed only gastritis but no bleeding. It does not appear that he has been retried on anticoagulation since then and has been off of anticoagulation since that hospitalization. Patient denies any issues with GI bleeding or other bleeding since that episode in 2020. Review of Systems 2 Review of Systems: All systems reviewed & are unremarkable except as noted in HPI and below (HPI) [facility] Past Medical History Medical History Obstructive sleep apnea End-stage renal disease on hemodialysis Insulin dependent diabetes mellitus Paroxysmal atrial fibrillation Hypertension Mitral valve regurgitation [id number] noted on RODNEY February 2020 Thrombus of left atrial appendage noted on RODNEY in February 2020 Duodenal ulcer disease Iron deficiency anemia Glaucoma Adenomatous colon polyp Chronic obstructive pulmonary disease Hyperlipidemia Primary osteoarthritis, unspecified site Surgical History Surgical History History of cholecystectomy History of open reduction and internal fixation (ORIF) procedure (1977) repair of left lower extremity fracture History of cataract extraction with lens replacement History of right shoulder replacement (2010) History of bilateral knee replacement (2004) History of esophagogastroduodenoscopy (EGD) (12/2019) History of colonoscopy with polypectomy (12/2019) Family History Family History Mother Diabetes mellitus Heart disease Father Lung cancer Sibling Lung cancer Breast cancer Son , 52 years of age Drug abuse Social History Social History Social History: Surrogate medical decision maker: SCOTT Reyes grandson ([phone]). Code status: Full code. Smoking packs per day: 1 Smoking cigarettes per day: 20.0 Years smoked: 50 Smoking pack-years: 50.00 Smoking status: Former smoker Tobacco type: cigarettes Second hand tobacco smoke exposure: Yes Smoking end date: 02/07/02 Alcohol intake: former Substance use: never Substance use type: does not use Last use: 2000 Do You Feel Safe in your Home?: Yes Lack of Transportation: YES Lack of Food: Never True Current Housing: I Have Housing Concerned About Future Housing: No Difficulty Paying Gas/Electric Bills: No Difficulty Paying for Meds: No Currently Unemployed: No Education: Grade School Difficulty w/ Childcare or Family Care: No Living arrangements: with family Additional living arrangements comments: Lives in [place]. His grandson whom he helped raised lives with him. Occupation/Education: retired Additional occupation/education comments: [employer] Spiritual care concerns: No Meds Home Medications and Allergies Home Medications ?Medication ?Instructions ?Recorded ?Confirmed ?Type furosemide 20 mg tablet 20 mg PO QAM 04/27/19 02/21/24 History latanoprost 0.005 % eye drops 1 drop ophthalmic (eye) QPM 04/27/19 02/21/24 History alcohol swabs (Alcohol Prep Pads) 1 pad topical TID #100 ea 05/13/22 02/21/24 Rx blood-glucose meter (OneTouch #1 ea 11/22/22 02/21/24 Rx Ultra2 Meter) blood sugar diagnostic (EasyMax #300 ea 04/13/23 02/21/24 Rx strips) lancets 30 gauge (Easy Touch Twist #300 ea 06/28/23 02/21/24 Rx Lancets) hydralazine 25 mg tablet 25 mg PO TID #270 tabs 07/05/23 02/21/24 Rx albuterol sulfate 90 mcg/actuation 1 - 2 puff inhalation Q4-6H PRN 08/02/23 02/21/24 Rx aerosol inhaler shortness of breath or wheezing #25.5 grams atorvastatin 20 mg tablet 20 mg PO DAILY #90 tabs 10/03/23 02/21/24 Rx clonidine HCl 0.1 mg tablet 0.1 mg PO BID #180 tabs 10/03/23 02/21/24 Rx metoprolol succinate 25 mg 25 mg PO DAILY #30 tabs 10/03/23 02/21/24 Rx tablet,extended release 24 hr pantoprazole 40 mg tablet,delayed 40 mg PO BID #180 tabs 10/03/23 02/21/24 Rx release insulin glargine 100 unit/mL (3 See Rx Instructions .Route 11/07/23 02/21/24 Rx mL) subcutaneous pen (Lantus .COMPLEX #15 mL Solostar U-100 Insulin) pen needle, diabetic 32 gauge x #100 ea 11/07/23 02/21/24 Rx 5/32 (UltiCare Pen Needle) fluticasone fur. 100 mcg-umeclid See Rx Instructions .Route 11/14/23 02/21/24 Rx 62.5 mcg-vilant 25 mcg .COMPLEX #180 ea inhalat.powder (Trelegy Ellipta) amlodipine 10 mg tablet See Rx Instructions .Route 12/12/23 02/21/24 Rx .COMPLEX #90 tabs metolazone 5 mg tablet See Rx Instructions .Route 12/28/23 02/21/24 Rx .COMPLEX #90 tabs alprazolam 0.5 mg tablet (Xanax) 0.5 mg PO BID PRN anxiety #60 tabs 02/10/24 02/21/24 Rx tramadol 37.5 mg-acetaminophen 325 1 tablet PO Q6H PRN pain #120 tabs 02/17/24 02/21/24 Rx mg tablet Allergies Allergy/AdvReac Type Severity Reaction Status Date / Time No Known Allergies Allergy Verified 02/21/24 11:41 Vital Signs Vital Signs - 24 hr 02/21/24 11:28 02/21/24 11:35 02/21/24 11:35 Temperature 36.7 C Pulse Rate 156 H 142 H Respiratory Rate 24 H Blood Pressure 136/84 Pulse Oximetry 94 92 Oxygen Delivery Room Air Room Air Oxygen Flow Rate 02/21/24 11:57 02/21/24 12:35 02/21/24 12:36 Temperature Pulse Rate 146 H 134 H 131 H Respiratory Rate 25 H Blood Pressure 136/81 114/71 114/71 Pulse Oximetry 93 Oxygen Delivery Oxygen Flow Rate 02/21/24 13:42 02/21/24 13:43 02/21/24 14:31 Temperature Pulse Rate 140 H 136 H 122 H Respiratory Rate 22 H 26 H Blood Pressure 136/80 136/80 115/63 Pulse Oximetry 94 95 Oxygen Delivery Oxygen Flow Rate 02/21/24 16:30 02/21/24 17:31 02/21/24 17:45 Temperature Pulse Rate 127 H 128 H 122 H Respiratory Rate 21 H 24 H Blood Pressure 123/67 119/71 Pulse Oximetry 98 91 Oxygen Delivery Oxygen Flow Rate 02/21/24 18:40 02/21/24 18:47 02/21/24 19:00 Temperature 36.8 C Pulse Rate 108 H 112 H 108 H Respiratory Rate 23 H 26 H Blood Pressure 108/60 108/60 108/60 Pulse Oximetry 91 92 Oxygen Delivery Oxygen Flow Rate 02/21/24 19:05 02/21/24 20:00 02/21/24 20:00 Temperature 36.7 C Pulse Rate 123 H 115 H Respiratory Rate 24 H Blood Pressure 158/105 H Pulse Oximetry 91 96 Oxygen Delivery Nasal Cannula Oxygen Flow Rate 2 02/21/24 20:00 02/21/24 21:50 02/21/24 22:00 Temperature Pulse Rate 115 H 105 H 115 H Respiratory Rate Blood Pressure 158/105 H 121/66 Pulse Oximetry 96 Oxygen Delivery Oxygen Flow Rate 02/21/24 22:00 02/21/24 23:46 02/22/24 00:00 Temperature 37.2 C Pulse Rate 105 H 117 H Respiratory Rate 24 H Blood Pressure 121/66 130/56 L Pulse Oximetry 96 96 Oxygen Delivery Nasal Cannula Oxygen Flow Rate 2 02/22/24 00:00 02/22/24 00:00 02/22/24 00:40 Temperature Pulse Rate 108 H 117 H 104 H Respiratory Rate Blood Pressure 130/56 L 130/56 L Pulse Oximetry Oxygen Delivery Oxygen Flow Rate 02/22/24 00:42 02/22/24 01:43 02/22/24 02:00 Temperature Pulse Rate 104 H 114 H 109 H Respiratory Rate Blood Pressure 130/56 L 135/75 Pulse Oximetry 96 Oxygen Delivery Oxygen Flow Rate 02/22/24 02:00 02/22/24 03:10 02/22/24 03:51 Temperature 37.5 C Pulse Rate 114 H 102 H 100 Respiratory Rate 20 22 H Blood Pressure 135/75 103/60 Pulse Oximetry 95 95 Oxygen Delivery CPAP Oxygen Flow Rate 02/22/24 04:00 02/22/24 04:00 02/22/24 04:00 Temperature Pulse Rate 124 H 102 H Respiratory Rate Blood Pressure 103/60 Pulse Oximetry 95 Oxygen Delivery Nasal Cannula Oxygen Flow Rate 2 02/22/24 05:57 02/22/24 06:00 02/22/24 06:00 Temperature Pulse Rate 135 H 113 H 135 H Respiratory Rate Blood Pressure 132/69 132/69 Pulse Oximetry 98 Oxygen Delivery Oxygen Flow Rate 02/22/24 06:39 02/22/24 06:39 02/22/24 07:08 Temperature Pulse Rate 135 H 135 H 141 H Respiratory Rate 20 Blood Pressure Pulse Oximetry 97 Oxygen Delivery Nasal Cannula Oxygen Flow Rate 2 02/22/24 07:08 02/22/24 07:34 Temperature 37.1 C Pulse Rate 141 H 128 H Respiratory Rate 20 24 H Blood Pressure 126/61 Pulse Oximetry 96 Oxygen Delivery Oxygen Flow Rate Exam 2 Const: General: no acute distress HENMT: Mouth: Yes moist mucous membranes Eyes: General: appearance normal, both eyes and all related structures S clera: sclerae normal Resp: Effort & Inspection: normal respiratory effort Cardio: Rate: tachycardic Rhythm: abnormal rhythm irregularly irregular Heart sounds: no murmurs Skin: General skin exam: normal color Neuro: Speech: normal speech Psych: Mental Status: mental status grossly normal Affect: normal affect Results Labs and Meds 02/22/24 03:48 02/22/24 03:48 Lab results: Cardiac Enzymes 02/21/24 02/21/24 Range/Units 11:47 17:44 AST 31 (17-59) U/L Troponin I 0.019 0.020 (0.000-0.034) ng/mL Coagulation 02/21/24 Range/Units 11:47 PT 14.9 H (11.1-14.7) Seconds APTT 49.5 H (22.3-36.8) Seconds CBC 02/21/24 02/22/24 Range/Units 11:47 03:48 WBC 13.7 H 9.8 (4.5-10.0) K/mm3 RBC 3.40 L 3.14 L (4.6-6.20) M/mm3 Hgb 11.5 L 10.8 L (14.0-18.0) g/dL Hct 34.0 L 31.3 L (42.0-52.0) % Plt Count 182 155 (150-375) k/mm3 Lymph # (Auto) 0.87 L (0.9-3.2) K/mm3 [place] # (Auto) 1.2 H (0.1-0.6) K/mm3 Eos # (Auto) 0.1 (0-0.3) K/mm3 Baso # (Auto) 0.1 (0.0-0.1) K/mm3 Comprehensive Metabolic Panel 02/21/24 02/22/24 Range/Units 11:47 03:48 Sodium 135 L 132 L (137-145) mmol/L Potassium 3.8 3.9 (3.4-5.0) mmol/L Chloride 94 L 94 L (98-107) mmol/L Carbon Dioxide 31 H 29 (22-30) mmol/L BUN 24 H D 34 H D (9-20) mg/dL Creatinine 2.10 H 2.98 H (0.7-1.3) mg/dL Glucose 200 H 143 H (65-110) mg/dL Calcium 8.6 8.9 (8.4-10.2) mg/dL AST 31 (17-59) U/L ALT 22 (6-50) U/L Alkaline Phosphatase 83 (38-126) U/L Total Protein 7.0 (6.3-8.2) g/dL Albumin 4.1 (3.5-5.1) g/dL Intake and Output 02/21/24 02/22/24 02/22/24 23:59 07:59 15:59 Intake Total 50 774.9 Output Total 460 400 125 Balance -410 374.9 -125 Intake: IV 50 124.9 dilTIAZem 100 MG/100 ML 100 mg 50 124.9 In 100 ml @ 15 MG/HR 15 mls/hr IV CONT .Q6H40M [facility] Rx#: [id number] Oral 650 Output: Urine 460 400 125 Patient Weight 02/22/24 23:59 Weight 108.1 kg
[2024-02-22] MEDS: HEPARIN SODIUM 5,000 UNITS/ML VIAL 5000 UNITS SUB-Q (09:17)
[2024-02-22] MEDS: metOLazone 5 MG TABLET BY MOUTH (09:17)
[2024-02-22] MEDS: FUROSEMIDE 20 MG TABLET PO (09:18)
[2024-02-22] MEDS: cloNIDine HCL 0.1 MG TABLET PO (09:18)
[2024-02-22] MEDS: ATORVASTATIN 20 MG TABLET PO (09:18)
[2024-02-22] MEDS: METOPROLOL SUCCINATE EXT REL 50 MG TABCR PO ×2 (09:18→12:27)
[2024-02-22] MEDS: AZITHROMYCIN 500 MG/NS 250 ML 500 MG/250 ML BAG 250 MG IVPB (09:19)
[2024-02-22] MEDS: cefTRIAXone 2 GM/NS 100 ML 2 GM/100 ML BAG IVPB (09:19)
[2024-02-22] MEDS: PERFLUTREN LIPID MICROSPHERES 1.5 ML VIAL DILUTED TO 10 ML TOTAL VOLUME IV PUSH (11:25)
--- NOTE | 2024-02-22 11:41 | IVDEFINITY ---
Prior to administration of IV Definity the patient was educated on the risks and benefits of the imaging enhancing agent including potential adverse side effects. The patient verbalized understanding. Allergies were verified. No exclusion criteria were identified and at least one of the following inclusion criteria were met: 1) physician request, 2) patient technically difficult to image (per the [place] [employer] Echocardi[employer] guidelines of two or more segments not discernable within the apical view), or 3) questionable left ventricular function. ?
[2024-02-22 12:04] LABS: Glucose Point of Care 192 mg/dl (65-105)
[2024-02-22] MEDS: APIXABAN 2.5 MG TABLET PO ×2 (12:27→21:05)
[2024-02-22] MEDS: IPRATROPIUM 0.5 MG/ALBUTEROL SULFATE 2.5 MG AMPUL.NEB 3 ML INHALATION ×2 (13:05→20:45)
--- NOTE | 2024-02-22 17:03 | ECHO_ITS ---
Patient Info Name: Leobardo Reyes Age: 83 years : 1940 Gender: Male Ht: 70 in Wt: 238 lbs BSA: 2.35 m2 HR: 135 bpm BP: 132 / 69 mmHg Heart Rhythm: Atrial Fibrillation, Tachycardia Technical Quality: Poor Exam Date: 02/22/2024 10:26 AM Exam Location: Echo Lab Patient Status: Inpatient Admit Date: 02/22/2024 Staff Ordering Physician: Keila Asher PA-C Real Estate Coordinator: Alden Rivas RDCS Attending Provider: Jeffery Day MD Referring Physician: Lakeshia SUE; Exam Type: CA echo dop color flow w con Study Info Indications - RAPID AFIB Complete two-dimensional, color flow and Doppler transthoracic echocardiogram is performed with contrast to opacify the left ventricle and to improve the deliniation of the left ventricle endocardial borders. Contrast/Agitated Saline Contrast/Ag. Saline: Definity Amount: 2.00 ml Existing IV Access: Yes Reason for Poor Study: poor echocardiographic windows Summary 1. Technically difficult study with limited views. 2. Left ventricular chamber dimension is normal. 3. Left ventricular systolic function is normal, estimated at 65-70%. 4. There is mildly increased left ventricular wall thickness. 5. Left atrial chamber dimension is moderately enlarged. 6. There is mild tricuspid valve regurgitation. Left Ventricle Left ventricular chamber dimension is normal. Left ventricular systolic function is normal, estimated at 65-70%. There is mildly increased left ventricular wall thickness. The left ventricular diastolic function is abnormal. Right Ventricle Right ventricular chamber dimension is not well visualized. Left Atria Left atrial chamber dimension is moderately enlarged. Right Atria Linear artifact in the right atrium suggestive of catheter(s), pacemaker lead(s), or ICD lead(s). Right atrial chamber dimension is normal. Atrial Septum Intact interatrial septum visualized by color flow imaging. Aortic Valve The aortic valve is not well visualized. There is no aortic valve regurgitation. There is moderate aortic valve calcification. Pulmonic Valve The pulmonic valve is not well visualized. Mitral Valve There is trace mitral valve regurgitation. Tricuspid Valve There is mild tricuspid valve regurgitation. Pericardium/Pleural The pericardium appears epicardial fat pad. There is no pericardial effusion. Inferior Vena Cava Normal inferior vena cava with <50% collapse upon inspiration consistent with elevated right atrial pressure, 8 mmHg. Aorta The aortic root size at the sinus of Valsalva is normal. Left Ventricular Outflow Tract Name Value Normal LVOT 2D LVOT Diameter 1.63 cm LVOT Doppler LVOT Peak Gradient 5 mmHg LVOT Mean Gradient 3 mmHg LVOT VTI 25.27 cm LVOT VTI/AV VTI Ratio 0.97 LVOT Stroke Volume 52.65 ml LVOT CO 6.30 l/min LVOT CI 2.69 L/min/m2 Pulmonic Valve Name Value Normal RVOT Doppler RVOT Peak Gradient 4 mmHg PV Doppler PV Peak Gradient 6 mmHg Mitral Valve Name Value Normal MV Doppler MV Decel Maury 443.72 cm/s2 MV PHT 0 s MV Area (PHT) 3.71 cm2 4.00-5.00 MV Diastolic Function MV E Peak Velocity 90.62 cm/s MV A Peak Velocity 1.96 cm/s MV E/A 46.34 MV Decel Time 0 s MV Annular TDI MV E/e' (Septal) 8.75 <=8.00 MV E/e' (Lateral) 7.60 <=8.00 MV E/e' (Average) 8.17 Tricuspid Valve Name Value Normal TV Regurgitation Doppler TR Peak Velocity 288.99 cm/s TR Peak Gradient 33 mmHg Estimated PAP/RSVP RA Pressure 8 mmHg <=5 PA Systolic Pressure 41 mmHg <36 RV Systolic Pressure 41 mmHg <36 Aorta Name Value Normal Ascending Aorta Ao Root Diameter (MM) 3.79 cm Ao Root Diam Index (MM) 1.62 cm/m2 Aortic Valve Name Value Normal AV Doppler AV Peak Velocity 125.14 cm/s AV Peak Gradient 4 mmHg AV Mean Gradient 3 mmHg AV VTI 25.96 cm AV Area (Cont Eq VTI) 2.03 cm2 >=3.00 AV Area (Cont Eq Samir) 2.17 cm2 AV Regurgitation 2D LVOT Area 2.08 cm2 Ventricles Name Value Normal LV Dimensions 2D/MM IVS Diastolic Thickness (2D) 1.39 cm 0.60-1.00 LVID Diastole (2D) 3.54 cm 4.20-5.80 LVIW Diastolic Thickness (2D) 1.39 cm 0.60-1.00 LVID Systole (2D) 2.20 cm 2.50-4.00 LVOT Diameter 1.63 cm LV Mass (2D Cubed) 173.42 g 88.00-224.00 LV Mass Index (2D Cubed) 0.01 g/cm2 0.00-0.01 Relative Wall Thickness (2D) 0.79 LV Fractional Shortening/Ejection Fraction 2D/MM LV Fractional Shortening (2D) 38 % 25-43 LV EF (2D Teicholz) 69 % 52-72 Atria Name Value Normal LA Dimensions LA Dimension (MM) 4.61 cm 3.00-4.10 LA Volume (4C A-L) 71.74 ml LA Volume (BP A-L) 96.38 ml Report Signatures
[2024-02-22 20:59] LABS: Glucose Point of Care 178 mg/dl (65-105)
[2024-02-22] MEDS: INSULIN GLARGINE (*BKC) 100 UNITS/ML 17 UNITS SUB-Q (21:06)
[2024-02-22] MEDS: traMADol/ACETAMINOPHEN (*CRX) (ULTRACET) 37.5/325 MG TABLET 1 TAB PO (21:19)
[2024-02-22] MEDS: ALPRAZolam (*CRX) 0.5 MG TABLET PO (21:20)
[2024-02-23] VITALS (53 sets, daily range): BP systolic 88–138; BP diastolic 56–100; PULSE 60–155; RESP 16–26; TEMP 36.7–37; O2SAT 90–98
--- NOTE | 2024-02-23 | ECHO_ITS ---
Patient Info Name: Leobardo Reyes Age: 83 years : 1940 Gender: Male Ht: 70 in Wt: 238 lbs BSA: 2.35 m2 Technical Quality: Good Exam Date: 02/23/2024 12:25 PM Exam Location: Echo Lab Patient Status: Inpatient Admit Date: 02/22/2024 Staff Ordering Physician: Pj Abreu MD (angela/doni) Vaccine Manager: Chayito Perez RDCS Attending Provider: Jeffery Day MD Referring Physician: Brady ABAD; Exam Type: CA echo transesophageal Study Info Indications - CARDIOVERSION Complete two-dimensional, color flow and Doppler transesophageal study is performed. Procedure Details The patient arrived in a fasting state after obtaining informed consent. The transesophageal probe was passed into the posterior pharynx, mid-esophagus, distal esophagus, and gastric fundus. Imaging was performed at multiple levels. The patient tolerated the procedure well and there were no complications. The patient was transferred out of the examination area in satisfactory condition. Summary 1. Normal biventricular systolic function. 2. No significant valvular disease. 3. There is a left atrial appendage thrombus. Left Ventricle The left ventricle is normal in size and systolic function. Right Ventricle The right ventricle is normal in size and systolic function. Left Atria The left atrium is dilated. There is spontaneous smoke in the left atrium suggestive of low flow. Right Atria The right atrium is normal size. Atrial Septum The atrial septum is intact. Atrial Appendage There is thrombus visualized in the left atrial appendage. Aortic Valve The aortic valve is trileaflet and opens well. There is no aortic regurgitation. Pulmonic Valve The pulmonic valve is grossly normal. There is no pulmonic valve regurgitation. Mitral Valve The mitral valve is sclerotic and opens well. There is mild mitral regurgitation. Tricuspid Valve The tricuspid valve is normal. There is trace tricuspid valve regurgitation. Pericardium/Pleural There is no pericardial effusion. Aorta There is mild atherosclerotic plaque in the visualized portions of the aorta. Report Signatures
[2024-02-23] MEDS: dilTIAZem 100 MG/100 ML 100 MG/100 ML BAG 15 MG IV CONT ×4 (04:01→19:56)
--- NOTE | 2024-02-23 05:38 | PCRCNOTE ---
Patient stated he did mot want to be awakened for 0200 updraft treatment. Treatment to resume @ 0800.
--- NOTE | 2024-02-23 06:30 | PC.NURSE ---
There is a timing discrepany for the diltiazem gtt for administration. This is due to technical limitations with the software. The number of bags and total volume infused should be accurate.
[2024-02-23 07:36] LABS: Glucose Point of Care 138 mg/dl (65-105)
[2024-02-23] MEDS: IPRATROPIUM 0.5 MG/ALBUTEROL SULFATE 2.5 MG AMPUL.NEB 3 ML INHALATION ×2 (08:13→20:12)
[2024-02-23] MEDS: FLUTICASONE/UMECLIDIN/VILANTER 100-62.5-25 MCG ELLIPTA 1 PUFF INHALATION (08:14)
--- NOTE | 2024-02-23 08:56 | WPDHPUPDATE1 ---
History and Physical Update Update Date/Time: 02/23/24 08:36 History and Physical has been reviewed, including an updated exam of the patient. There are NO changes in the patient's condition. Risks, benefits, and alternatives have been discussed and questions answered. Patient agrees to proceed with procedure.
[2024-02-23] MEDS: FUROSEMIDE 20 MG TABLET PO (09:02)
[2024-02-23] MEDS: metOLazone 5 MG TABLET BY MOUTH (09:02)
[2024-02-23] MEDS: hydrALAZINE HCL 25 MG TABLET PO ×3 (09:03→19:10)
[2024-02-23] MEDS: ATORVASTATIN 20 MG TABLET PO (09:03)
[2024-02-23] MEDS: APIXABAN 2.5 MG TABLET PO ×2 (09:03→19:57)
[2024-02-23] MEDS: METOPROLOL SUCCINATE EXT REL 50 MG TABCR 100 MG PO (09:03)
[2024-02-23] MEDS: cloNIDine HCL 0.1 MG TABLET PO (09:04)
[2024-02-23] MEDS: PANTOPRAZOLE 40 MG TABLET PO ×2 (09:04→19:06)
[2024-02-23 09:15] LABS: Hepatitis B Surface Antigen Negative (Negative)
--- NOTE | 2024-02-23 09:20 | P.PNIM_ITS ---
Progress Note: A&P Assessment and Plan (1) Atrial fibrillation with rapid ventricular response: Code(s): I48.91 - Unspecified atrial fibrillation Status: Acute (2) Hypomagnesemia: Code(s): E83.42 - Hypomagnesemia Status: Acute (3) Hypertension: Code(s): I10 - Essential (primary) hypertension Status: Acute (4) End-stage renal disease on hemodialysis: Code(s): N18.6 - End stage renal disease; Z99.2 - Dependence on renal dialysis Status: Acute (5) Chronic obstructive pulmonary disease: Qualifiers: COPD type: unspecified COPD Qualified Code(s): J44.9 - Chronic obstructive pulmonary disease, unspecified Code(s): J44.9 - Chronic obstructive pulmonary disease, unspecified Status: Acute (6) Obstructive sleep apnea: Code(s): G47.33 - Obstructive sleep apnea (adult) (pediatric) Status: Acute (7) Insulin dependent diabetes mellitus: Status: Acute Plan This is a very pleasant 83-year-old male with paroxysmal atrial fibrillation no longer on chronic anticoagulation due to GI bleeding, duodenal ulcers, 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 proBNP 21,200, troponin 0.019. Chest x-ray showed bibasilar pneumonia and cardiomegaly with probable pulmonary edema. 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 Chest x-ray shows pulmonary edema, He was started on a diltiazem drip in the ED with some improvement in his rates. He is only on 25 mg of metoprolol succinate today which can be titrated up for better rate control. For now we will increase that to 50 mg daily and decrease clonidine to 0.1 mg daily and adjust as needed. not on anticoagulation due to history of bleeding ulcers and gastritis Appreciate cardiology consultation, will perform electrical cardioversion left atrial appendage thrombus on RODNEY in 2020 Patient may need anticoagulation Follow-up cardiology recommendation End-stage renal disease on hemodialysis Consult assistant real estate manager for dialysis Chest x-ray shows pulmonary congestion Management per assistant real estate manager Acute on chronic diastolic heart failure echo: 1. Technically difficult study with limited views. 2. Left ventricular chamber dimension is normal. 3. Left ventricular systolic function is normal, estimated at 65-70%. 4. There is mildly increased left ventricular wall thickness. 5. Left atrial chamber dimension is moderately enlarged. 6. There is mild tricuspid valve regurgitation. Patient's shortness breath, x-ray shows pulmonary congestion Received IV furosemide May need more dialysis COPD exacerbation Patient leukocytosis 13,700 upon arrival in the ED, X-ray shows bilateral basal pneumonia Start DuoNeb scheduled, albuterol nebulizer p.r.n. Follow-up VBG on azithromycin ceftriaxone IV Type 2 diabetes Continue basal insulin and initiate sliding scale insulin, Accu-Cheks, and hypoglycemic protocol. His home medications will be reviewed and resumed as appropriate. Chronic anemia Stable Possible due to end-stage renal disease Subjective Date/time seen: 02/23/24 09:20 Interval history: I saw exam patient today. Patient has tachycardia, patient has intermittent palpitation. Still has Tachypnea, and also has significant dyspnea with minimal exertion. Pulse ox 96 on 2 L oxygen, labs reviewed. Telemetry showed AFib RVR.Patient still has significant dyspnea at rest, patient feels better today. Patient has cough with scant phlegm. Patient denies chest pain. Patient has intermittent palpitation. Afebrile blood pressure stable. Labs reviewed Exam Narrative: GENERAL: Ill-appearing, in no acute distress. Well-nourished. - EYES: EOMI. Anicteric. - HENT: Moist mucous membranes. - LUNGS: Coarse breath sound bilaterall y, tachypnea . - CARDIOVASCULAR: Irregular irregular r hythm, tachycardia. No murmur. No JVD. - ABDOMEN: Soft, non-tender and non-dist ended. No palpable masses. - EXTREMITIES: No edema. Peripheral puls es 2+. Non-tender. - NEUROLOGIC: No focal neurological defi cits. CN II-XII grossly intact. General weakness - PSYCHIATRIC: Awake, Alert and oriented x 3. Appropriate mood and affect. - SKIN: No rashes or lesions. Warm. - LYMPH: No cervical lymphadenopathy. Objective Data Vital Signs Vital Signs: Vital Signs - 24 hr 02/22/24 10:00 02/22/24 10:00 02/22/24 10:00 Temperature Pulse Rate 130 H 130 H 136 H Respiratory Rate Blood Pressure 126/64 126/64 Pulse Oximetry 94 Oxygen Delivery Oxygen Flow Rate 02/22/24 12:00 02/22/24 12:00 02/22/24 12:00 Temperature 98 F Pulse Rate 123 H 123 H 137 H Respiratory Rate 20 Blood Pressure 117/61 117/61 Pulse Oximetry 95 Oxygen Delivery Oxygen Flow Rate 02/22/24 12:27 02/22/24 13:05 02/22/24 13:15 Temperature Pulse Rate 143 H 125 H 123 H Respiratory Rate 20 20 Blood Pressure Pulse Oximetry Oxygen Delivery Oxygen Flow Rate 02/22/24 13:19 02/22/24 13:19 02/22/24 14:00 Temperature Pulse Rate 123 H 123 H 129 H Respiratory Rate Blood Pressure 117/61 117/61 123/62 Pulse Oximetry 96 Oxygen Delivery Oxygen Flow Rate 02/22/24 14:00 02/22/24 14:00 02/22/24 15:38 Temperature 97.9 F Pulse Rate 129 H 124 H 118 H Respiratory Rate 18 Blood Pressure 123/62 145/94 H Pulse Oximetry 94 Oxygen Delivery Oxygen Flow Rate 02/22/24 16:00 02/22/24 16:00 02/22/24 18:00 Temperature Pulse Rate 118 H 123 H 101 H Respiratory Rate 20 Blood Pressure 145/94 H 115/60 Pulse Oximetry 95 Oxygen Delivery Oxygen Flow Rate 02/22/24 18:00 02/22/24 18:00 02/22/24 19:31 Temperature 99.1 F Pulse Rate 101 H 101 H 110 H Respiratory Rate 22 H Blood Pressure 115/61 101/52 L Pulse Oximetry 93 Oxygen Delivery Oxygen Flow Rate 02/22/24 20:00 02/22/24 20:00 02/22/24 20:45 Temperature Pulse Rate 103 H 110 H 107 H Respiratory Rate 22 H Blood Pressure 101/52 L Pulse Oximetry Oxygen Delivery Oxygen Flow Rate 02/22/24 20:45 02/22/24 20:54 02/22/24 21:10 Temperature Pulse Rate 107 H 105 H 110 H Respiratory Rate 22 H Blood Pressure 101/52 L Pulse Oximetry 96 Oxygen Delivery Nasal Cannula Oxygen Flow Rate 2 02/22/24 21:10 02/22/24 21:40 02/22/24 22:00 Temperature Pulse Rate 110 H 102 H 96 Respiratory Rate 24 H Blood Pressure 101/52 L Pulse Oximetry 95 Oxygen Delivery CPAP Oxygen Flow Rate 02/22/24 22:00 02/22/24 22:08 02/22/24 23:43 Temperature Pulse Rate 110 H 110 H 122 H Respiratory Rate 22 H Blood Pressure 109/56 L 109/56 L 103/63 Pulse Oximetry 98 95 Oxygen Delivery Oxygen Flow Rate 02/23/24 00:00 02/23/24 00:00 02/23/24 01:53 Temperature Pulse Rate 106 H 122 H 113 H Respiratory Rate Blood Pressure 103/63 120/67 Pulse Oximetry 97 Oxygen Delivery Oxygen Flow Rate 02/23/24 02:00 02/23/24 02:00 02/23/24 04:00 Temperature Pulse Rate 113 H 113 H 127 H Respiratory Rate Blood Pressure 120/67 126/68 Pulse Oximetry Oxygen Delivery Oxygen Flow Rate 02/23/24 04:00 02/23/24 04:01 02/23/24 04:02 Temperature 98.1 F Pulse Rate 129 H 113 H 127 H Respiratory Rate 26 H Blood Pressure 120/67 126/68 Pulse Oximetry 95 Oxygen Delivery Oxygen Flow Rate 02/23/24 06:00 02/23/24 06:00 02/23/24 06:26 Temperature Pulse Rate 129 H 116 H 140 H Respiratory Rate Blood Pressure 112/69 112/69 Pulse Oximetry 95 Oxygen Delivery Oxygen Flow Rate 02/23/24 06:26 02/23/24 08:00 02/23/24 08:00 Temperature 98.0 F Pulse Rate 140 H 60 Respiratory Rate 24 H Blood Pressure 112/69 116/76 Pulse Oximetry 93 92 Oxygen Delivery Nasal Cannula Oxygen Flow Rate 2 02/23/24 08:00 02/23/24 08:15 02/23/24 08:15 Temperature Pulse Rate 137 H 121 H 121 H Respiratory Rate 24 H Blood Pressure 116/76 Pulse Oximetry 96 Oxygen Delivery Nasal Cannula Oxygen Flow Rate 2 02/23/24 08:27 02/23/24 09:03 Temperature Pulse Rate 128 H 137 H Respiratory Rate 24 H Blood Pressure Pulse Oximetry Oxygen Delivery Oxygen Flow Rate Intake/Output Intake/Output: Intake & Output 02/20/24 02/21/24 02/22/24 02/23/24 23:59 23:59 23:59 23:59 Intake Total 114.4 2257.4 422.3 Output Total 460 700 Balance -345.6 1557.4 422.3 Meds/Results Medications: Active Medications Generic Name Dose Route Start Last Admin Trade Name Freq PRN Reason Stop Dose Admin Acetaminophen 650 mg 02/21/24 17:03 Acetaminophen 325 Mg Tablet PO Q6H PRN Mild Pain (1-3) or Fever Albuterol 2.5 mg 02/22/24 08:43 Albuterol Sulfate Neb 2.5 Mg/3 Ml Inh INHALATION Q4HRT PRN Shortness Of Breath Albuterol/Ipratropium 3 ml 02/22/24 14:00 02/23/24 08:13 Ipratropium 0.5 Mg/Albuterol Sulfate 2.5 Mg Ampul.Neb 3 Ml INHALATION 3 ml Q6HRT FAISAL Administration Alprazolam 0.5 mg 02/21/24 23:13 02/22/24 21:20 Alprazolam (*Crx) 0.5 Mg Tablet PO 0.5 mg BID PRN Administration anxiety Apixaban 2.5 mg 02/22/24 10:55 02/23/24 09:03 Apixaban 2.5 Mg Tablet PO 2.5 mg Q12HR FAISAL Administration Atorvastatin Calcium 20 mg 02/22/24 09:00 02/23/24 09:03 Atorvastatin 20 Mg Tablet PO 20 mg DAILY FAISAL Administration Clonidine HCl 0.1 mg 02/22/24 09:00 02/23/24 09:04 Clonidine Hcl 0.1 Mg Tablet PO 0.1 mg DAILY FAISAL Administration Dextrose 12.5 gm 02/21/24 17:04 Dextrose 50% 25 Gm/50 Ml Syringe IV PUSH PRN PRN Hypoglycemia Protocol Fluticasone/Umeclidinium/Vilanterol 1 puff 02/22/24 09:00 02/23/24 08:14 Fluticasone/Umeclidin/Vilanter 100-62.5-25 Mcg Ellipta INHALATION 1 puff DAILY FAISAL Administration Furosemide 20 mg 02/22/24 09:00 02/23/24 09:02 Furosemide 20 Mg Tablet PO 20 mg QAM FAISAL Administration Glucagon 1 mg 02/21/24 17:04 Glucagon For Inj 1 Mg Vial IM PRN PRN Hypoglycemia Protocol Glucose 15 gm 02/21/24 17:04 Glucose Oral Gel 15 Gm Of Glucse In 37.5 Gm Tube PO PRN PRN Hypoglycemia Protocol Hydralazine HCl 25 mg 02/21/24 23:20 02/23/24 09:03 Hydralazine Hcl 25 Mg Tablet PO 25 mg TID FAISAL Administration Dextrose 1,000 mls @ 100 mls/hr 02/21/24 17:04 Dextrose 5% 1,000 Ml IVPB PRN PRN Hypoglycemia Protocol Diltiazem HCl 100 mg in 100 mls @ 15 mls/hr 02/22/24 00:30 02/23/24 08:00 Cardizem 100 Mg/100 Ml IV CONT 15 mg/hr .Q6H40M FAISAL 15 mls/hr Infusion 15 MG/HR Azithromycin 500 mg in 250 mls @ 250 mls/hr 02/22/24 09:00 02/22/24 09:19 Zithromax IVPB 250 mls/hr Q24H FAISAL Administration Ceftriaxone Sodium 2 gm in 100 mls @ 200 mls/hr 02/22/24 09:00 02/22/24 09:19 Rocephin 2 Gm/Ns 100 Ml IVPB 200 mls/hr Q24H FAISAL Administration Insulin Aspart 3 - 6 units 02/22/24 08:00 02/23/24 08:58 Insulin Aspart (*Bkc) 100 Units/Ml SUB-Q Not Given [facility] Protocol Insulin Aspart 1 - 3 units 02/21/24 21:00 02/22/24 21:06 Insulin Aspart (*Bkc) 100 Units/Ml SUB-Q Not Given [facility] Protocol Insulin Glargine 17 units 02/22/24 21:00 02/22/24 21:06 Insulin Glargine (*Bkc) 100 Units/Ml SUB-Q 17 units HS FAISAL Administration Latanoprost 1 drop 02/21/24 23:25 02/22/24 16:55 Latanoprost 0.005% Op Soln 2.5 Ml Btl EACH EYE 1 drop QPM FAISAL Administration Metolazone 5 mg 02/22/24 09:00 02/23/24 09:02 Metolazone 5 Mg Tablet BY MOUTH 5 mg DAILY FAISAL Administration Metoprolol Succinate 100 mg 02/23/24 09:00 02/23/24 09:03 Metoprolol Succinate Ext Rel 50 Mg Tabcr PO 100 mg QAM FAISAL Administration Pantoprazole Sodium 40 mg 02/21/24 23:25 02/23/24 09:04 Pantoprazole 40 Mg Tablet PO 40 mg BID FAISAL Administration Tramadol/Acetaminophen 1 tab 02/21/24 23:13 02/22/24 21:19 Tramadol/Acetaminophen (*Crx) (Ultracet) 37.5/325 Mg Tablet PO 1 tab Q6H PRN Administration PAIN RATED 4-6 Radiology Results: ITS Impressions Chest X-Ray 02/21/24 12:21 IMPRESSION: Bilateral basal pneumonia. Cardiomegaly with cardiac decompensation and pulmonary edema is not excluded. Bilateral interstitial pneumonitis is also possible. Venous Doppler Study 02/22/24 08:54 IMPRESSION: Negative bilateral lower extremity venous US. No deep vein thrombosis. Labs Labs: Laboratory Results - last 24 hr 02/21/24 02/22/24 02/22/24 17:44 12:00 20:56 POC Capillary Glucose 192 H 178 H Hep Bs Antigen Negative 02/23/24 07:28 POC Capillary Glucose 138 H Hep Bs Antigen
--- NOTE | 2024-02-23 09:40 | ECG_ITS ---
Test Date: 2024-02-23 09:55:49 Measurements Intervals [place] Rate: 103 P: 0 [place]: 0 QRS: 8 QRSD: 91 T: -27 QT: 329 QTc: 431 Interpretive Statements ATRIAL FIBRILLATION WITH RAPID VENTRICULAR RESPONSE LOW QRS VOLTAGE IN PRECORDIAL LEADS [QRS DEFLECTION < 1.0 mV IN CHEST LEADS] ABNORMAL RHYTHM ECG Compared to ECG 02/21/2024 11:33:56 Low QRS voltage now present Ventricular premature complex(es) no longer present T-wave abnormality no longer present Electronically Signed On 02-23-2024 10:16:02 CLERICAL OFFICE by Joe Arce M.D.
[2024-02-23 09:56] LABS: Basophils Percent Auto 0.3 % (0.2-1.2); Eosinophils Absolute Auto 0.1 K/mm3 (0-0.3); Eosinophils Percent Auto 0.9 % (0-4.4); Hematocrit 29.3 % (42.0-52.0); Immature Granulocyte Absolute 0.04 K/mm3 (0.00-0.031); Immature Granulocyte Percent A 0.4 % (0-0.5); Lymphocytes Absolute Auto 0.52 K/mm3 (0.9-3.2); Mean Corpuscular HGB Conc 34.1 g/dl (32-36); Mean Corpuscular Hemoglobin 33.9 pg (26-34); Mean Corpuscular Volume 99.3 fl (80-100); Mean Platelet Volume 8.9 fl (7.4-10.4); Monocytes Absolute Auto 0.9 K/mm3 (0.1-0.6); Monocytes Percent Auto 8.9 % (2.6-8.5); Neutrophils Absolute Auto 8.8 K/mm3 (1.3-6.7); Neutrophils Percent Auto 84.5 % (45.5-73.1); Platelet Count Result 161 k/mm3 (150-375); Red Blood Count 2.95 M/mm3 (4.6-6.20); White Blood Count 10.4 K/mm3 (4.5-10.0)
[2024-02-23 10:21] LABS: Anion Gap 8 mmol/L (4-12); Blood Urea Nitrogen 51 mg/dL (9-20); Calcium 8.7 mg/dL (8.4-10.2); Carbon Dioxide 28 mmol/L (22-30); Chloride 97 mmol/L (98-107); Estimated CRCL calculation 15 ml/min; Estimated Glomerular Filt Rate 14; Glucose 147 mg/dL (65-110); Potassium 3.8 mmol/L (3.4-5.0); Sodium 133 mmol/L (137-145)
--- NOTE | 2024-02-23 10:40 | PC.NURSE ---
[id number] This RN spoke to Momo in dialysis. Momo states to give all medications, except IV antibiotics. Hold IV antibiotics until after dialysis.
[2024-02-23 11:19] LABS: Glucose Point of Care 152 mg/dl (65-105)
[2024-02-23 12:14] LABS: Fractional Inspired Oxygen 28 %; HCO3 VBG 23.3 mEq/l (24.0-30.0); PCO2 VBG 31.8 mmHg (42.0-48.0)
[2024-02-23 12:19] LABS: Device NASAL CANNULA; pH VBG 7.483 (7.300-7.400)
--- NOTE | 2024-02-23 12:24 | WPDANESEPPF ---
Anes - Initial Pre Proc Eval Procedure: Operation Date: 02/23/24 12:30 Proposed Procedures p Trans Esophageal Echo - Joe Arce MD s Electrical Cardioversion - Joe Arce MD Date/Time: 02/23/24 12:24 Surgeon: Jeffery Day MD Pre Op Diagnosis: Atrial fibrillation with RVR Patient Data Age: 83 Gender: M Height: 1.78 m Weight: 107.7 kg Last Vital Signs Temp 98.0 F 02/23/24 12:00 Pulse 112 H 02/23/24 12:00 Resp 24 H 02/23/24 12:00 BP 120/65 02/23/24 12:00 Pulse Ox 95 02/23/24 12:00 O2 Del Method Nasal Cannula 02/23/24 11:29 O2 Flow Rate 1 02/23/24 11:29 Allergies Allergy/AdvReac Type Severity Reaction Status Date / Time No Known Allergies Allergy Verified 02/21/24 11:41 Home Medications ?Medication ?Instructions ?Recorded ?Confirmed ?Type furosemide 20 mg tablet 20 mg PO QAM 04/27/19 02/21/24 History latanoprost 0.005 % eye drops 1 drop ophthalmic (eye) QPM 04/27/19 02/21/24 History alcohol swabs (Alcohol Prep Pads) 1 pad topical TID #100 ea 05/13/22 02/21/24 Rx blood-glucose meter (OneTouch #1 ea 11/22/22 02/21/24 Rx Ultra2 Meter) blood sugar diagnostic (EasyMax #300 ea 04/13/23 02/21/24 Rx strips) lancets 30 gauge (Easy Touch Twist #300 ea 06/28/23 02/21/24 Rx Lancets) hydralazine 25 mg tablet 25 mg PO TID #270 tabs 07/05/23 02/21/24 Rx albuterol sulfate 90 mcg/actuation 1 - 2 puff inhalation Q4-6H PRN 08/02/23 02/21/24 Rx aerosol inhaler shortness of breath or wheezing #25.5 grams atorvastatin 20 mg tablet 20 mg PO DAILY #90 tabs 10/03/23 02/21/24 Rx clonidine HCl 0.1 mg tablet 0.1 mg PO BID #180 tabs 10/03/23 02/21/24 Rx metoprolol succinate 25 mg 25 mg PO DAILY #30 tabs 10/03/23 02/21/24 Rx tablet,extended release 24 hr pantoprazole 40 mg tablet,delayed 40 mg PO BID #180 tabs 10/03/23 02/21/24 Rx release insulin glargine 100 unit/mL (3 See Rx Instructions .Route 11/07/23 02/21/24 Rx mL) subcutaneous pen (Lantus .COMPLEX #15 mL Solostar U-100 Insulin) pen needle, diabetic 32 gauge x #100 ea 11/07/23 02/21/24 Rx (UltiCare Pen Needle) fluticasone fur. 100 mcg-umeclid See Rx Instructions .Route 11/14/23 02/21/24 Rx 62.5 mcg-vilant 25 mcg .COMPLEX #180 ea inhalat.powder (Trelegy Ellipta) amlodipine 10 mg tablet See Rx Instructions .Route 12/12/23 02/21/24 Rx .COMPLEX #90 tabs metolazone 5 mg tablet See Rx Instructions .Route 12/28/23 02/21/24 Rx .COMPLEX #90 tabs alprazolam 0.5 mg tablet (Xanax) 0.5 mg PO BID PRN anxiety #60 tabs 02/10/24 02/21/24 Rx tramadol 37.5 mg-acetaminophen 325 1 tablet PO Q6H PRN pain #120 tabs 02/17/24 02/21/24 Rx mg tablet Laboratory Tests 02/21/24 02/22/24 02/23/24 17:44 20:56 07:28 WBC RBC Hgb Hct MCV MCH MCHC RDW Plt Count MPV Immature Gran % (Auto) Neut % (Auto) Lymph % (Auto) Schuyler % (Auto) Eos % (Auto) Baso % (Auto) Lymph # (Auto) [place]uyler # (Auto) Eos # (Auto) Baso # (Auto) Abs Immat Gran (auto) Absolute Neuts (auto) Absolute Nucleated RBC Nucleated RBC % VBG pH VBG pCO2 VBG pO2 VBG HCO3 O2 Delivery Device O2 Liters/Min FiO2 Sodium Potassium Chloride Carbon Dioxide Anion Gap BUN Creatinine Estim Creat Clear Calc Estimated GFR Glucose POC Capillary Glucose 178 H mg/dl 138 H mg/dl (65-105) (65-105) Calcium Hep Bs Antigen Negative (Negative) 02/23/24 02/23/24 02/23/24 09:47 11:16 11:55 WBC 10.4 H K/mm3 (4.5-10.0) RBC 2.95 L M/mm3 (4.6-6.20) Hgb 10.0 L g/dL (14.0-18.0) Hct 29.3 L % (42.0-52.0) MCV 99.3 fl (80-100) MCH 33.9 pg (26-34) MCHC 34.1 g/dl (32-36) RDW 13.0 % (11.5-14.5) Plt Count 161 k/mm3 (150-375) MPV 8.9 fl (7.4-10.4) Immature Gran % (Auto) 0.4 % (0-0.5) Neut % (Auto) 84.5 H % (45.5-73.1) Lymph % (Auto) 5.0 L % (18.3-44.2) Schuyler % (Auto) 8.9 H % (2.6-8.5) Eos % (Auto) 0.9 % (0-4.4) Baso % (Auto) 0.3 % (0.2-1.2) Lymph # (Auto) 0.52 L K/mm3 (0.9-3.2) Schuyler # (Auto) 0.9 H K/mm3 (0.1-0.6) Eos # (Auto) 0.1 K/mm3 (0-0.3) Baso # (Auto) 0.0 K/mm3 (0.0-0.1) Abs Immat Gran (auto) 0.04 H K/mm3 (0.00-0.031) Absolute Neuts (auto) 8.8 H K/mm3 (1.3-6.7) Absolute Nucleated RBC 0.000 K/mm3 (0.0-0.012) Nucleated RBC % 0.0 % (0.0-0.2) VBG pH 7.483 H* (7.300-7.400) VBG pCO2 31.8 L mmHg (42.0-48.0) VBG pO2 29.0 L mmHg (35.0-45.0) VBG HCO3 23.3 L mEq/l (24.0-30.0) O2 Delivery Device Nasal cannula O2 Liters/Min 2.0 LPM FiO2 28 % Sodium 133 L mmol/L (137-145) Potassium 3.8 mmol/L (3.4-5.0) Chloride 97 L mmol/L (98-107) Carbon Dioxide 28 mmol/L (22-30) Anion Gap 8 mmol/L (4-12) BUN 51 H D mg/dL (9-20) Creatinine 4.19 H mg/dL (0.7-1.3) Estim Creat Clear Calc 15 ml/min Estimated GFR 14 L (59 - ) Glucose 147 H mg/dL (65-110) POC Capillary Glucose 152 H mg/dl (65-105) Calcium 8.7 mg/dL (8.4-10.2) Hep Bs Antigen Patient hx anesthesia problems: none Family hx anesthesia problems: none Results Review: All pre-operative results and documents have been reviewed as part of the pre-operative evaluation. 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 Iron deficiency anemia Glaucoma Adenomatous colon polyp Chronic obstructive pulmonary disease Hyperlipidemia Primary osteoarthritis, unspecified site Surgical History Surgical History History of cholecystectomy History of open reduction and internal fixation (ORIF) procedure (1977) repair of left lower extremity fracture History of cataract extraction with lens replacement History of right shoulder replacement (2010) History of bilateral knee replacement (2004) History of esophagogastroduodenoscopy (EGD) (12/2019) History of colonoscopy with polypectomy (12/2019) Family History Family History Mother Diabetes mellitus Heart disease Father Lung cancer Sibling Lung cancer Breast cancer Son , 52 years of age Drug abuse Social History Social History Social History: Surrogate medical decision maker: SCOTT Reyes, grandson ([phone]). Code status: Full code. Smoking packs per day: 1 Smoking cigarettes per day: 20.0 Years smoked: 50 Smoking pack-years: 50.00 Smoking status: Former smoker Tobacco type: cigarettes Second hand tobacco smoke exposure: Yes Smoking end date: 02/07/02 Alcohol intake: former Substance use: never Substance use type: does not use Last use: 1999 Do You Feel Safe in your Home?: Yes Lack of Transportation: YES Lack of Food: Never True Current Housing: I Have Housing Concerned About Future Housing: No Difficulty Paying Gas/Electric Bills: No Difficulty Paying for Meds: No Currently Unemployed: No Education: Grade School Difficulty w/ Childcare or Family Care: No Living arrangements: with family Additional living arrangements comments: Lives in [place]. His grandson whom he helped raised lives with him. Occupation/Education: retired Additional occupation/education comments: [employer] Spiritual care concerns: No Anes - Eval Final PreProcedure Day of Procedure 02/23/24 12:24 Patient weight: obese Heart: irregular rhythm and tachycardia Lungs: clear to auscultation Airway: Mallampati scale class II and special considerations (Edentulous upper, lower incisors in poor condition, L lower slightly loose. ) Neurological: alert and oriented Last oral intake: >/= 8 hours ASA classification: IV Emergent: no Anesthetic plan: proceed Anesthesia type and monitoring: general GIVS and standard monitoring Results Review: All pre-operative results and documents have been reviewed as part of the pre-operative evaluation. Notes reviewed and appreciated. Informed Consent: The patient's anesthetic plan and its attendant risks and benefits were discussed with the patient/family/POA. Questions were solicited and answers provided to the satisfaction of the patient/family/POA.
--- NOTE | 2024-02-23 17:29 | P.CONNP_ITS ---
Assessment and Plan Assessment and plan (1) End-stage renal disease on hemodialysis: Code(s): N18.6 - End stage renal disease; Z99.2 - Dependence on renal dialysis Status: Acute Assessment and Plan: * end-stage renal disease * Hypertensive renal disease and renal failure * Anemia chronic kidney disease * Secondary hyperparathyroidism * Admitted with atrial fibrillation and rapid ventricular response with shortness of breath. * Patient is being treated for pneumonia as well. Plan -Discussed with superintendent horticulture, for RODNEY, possible cardioversion, medical treatment -keep on a Tuesday, , Tuesday dialysis schedule for dialysis -Follow-up for ESRD and related need History of Present Illness Reason for Consult Consult date: 02/22/24 Chief Complaint Chief complaint: Atrial fibrillation with RVR History of Present Illness Narrative: this is a delayed entry from 02/22/2024. Patient on seen yesterday morning. 83-year-old male whom I had seen in the dialysis unit on 02/21/2024. He was short of breath the day. He was seen to be tachycardic. He was to see his superintendent horticulture the same morning and he was admitted thereafter for atrial fibrillation with rapid ventricular response. Has been controlled with medications, however if 8 he has planned does not show a blood clot he may have a cardioversion. This was discussed with Dr. Abreu superintendent horticulture yesterday. Patient's shortness of breath was still there with activity. His lower extremity swelling is better. No uremic features. No chest pain or chest pressures. No fevers or chills or cough. Recently lost her spouse and he lives with his grandson. He is regular with his dialysis treatments. Review of Systems 2 Review of Systems: Review of systems otherwise negative [facility] Past Medical History Medical History Obstructive sleep apnea End-stage renal disease on hemodialysis Insulin dependent diabetes mellitus Paroxysmal atrial fibrillation Hypertension Mitral valve regurgitation [id number] noted on RODNEY February 2020 Thrombus of left atrial appendage noted on RODNEY in February 2020 Duodenal ulcer disease Iron deficiency anemia Glaucoma Adenomatous colon polyp Chronic obstructive pulmonary disease Hyperlipidemia Primary osteoarthritis, unspecified site Surgical History Surgical History History of cholecystectomy History of open reduction and internal fixation (ORIF) procedure (1977) repair of left lower extremity fracture History of cataract extraction with lens replacement History of right shoulder replacement (2010) History of bilateral knee replacement (2004) History of esophagogastroduodenoscopy (EGD) (12/2019) History of colonoscopy with polypectomy (12/2019) Family History Family History Mother Diabetes mellitus Heart disease Father Lung cancer Sibling Lung cancer Breast cancer Son , 52 years of age Drug abuse Social History Social History Social History: Surrogate medical decision maker: bessie Lauren ([phone]). Code status: Full code. Smoking packs per day: 1 Smoking cigarettes per day: 20.0 Years smoked: 50 Smoking pack-years: 50.00 Smoking status: Former smoker Tobacco type: cigarettes Second hand tobacco smoke exposure: Yes Smoking end date: 02/07/02 Alcohol intake: former Substance use: never Substance use type: does not use Last use: 2000 Do You Feel Safe in your Home?: Yes Lack of Transportation: YES Lack of Food: Never True Current Housing: I Have Housing Concerned About Future Housing: No Difficulty Paying Gas/Electric Bills: No Difficulty Paying for Meds: No Currently Unemployed: No Education: Grade School Difficulty w/ Childcare or Family Care: No Living arrangements: with family Additional living arrangements comments: Lives in [place]. His grandson whom he helped raised lives with him. Occupation/Education: retired Additional occupation/education comments: [employer] Spiritual care concerns: No Meds Home Medications and Allergies Home Medications ?Medication ?Instructions ?Recorded ?Confirmed ?Type furosemide 20 mg tablet 20 mg PO QAM 04/27/19 02/21/24 History latanoprost 0.005 % eye drops 1 drop ophthalmic (eye) QPM 04/27/19 02/21/24 History alcohol swabs (Alcohol Prep Pads) 1 pad topical TID #100 ea 05/13/22 02/21/24 Rx blood-glucose meter (OneTouch #1 ea 11/22/22 02/21/24 Rx Ultra2 Meter) blood sugar diagnostic (EasyMax #300 ea 04/13/23 02/21/24 Rx strips) lancets 30 gauge (Easy Touch Twist #300 ea 06/28/23 02/21/24 Rx Lancets) hydralazine 25 mg tablet 25 mg PO TID #270 tabs 07/05/23 02/21/24 Rx albuterol sulfate 90 mcg/actuation 1 - 2 puff inhalation Q4-6H PRN 08/02/23 02/21/24 Rx aerosol inhaler shortness of breath or wheezing #25.5 grams atorvastatin 20 mg tablet 20 mg PO DAILY #90 tabs 10/03/23 02/21/24 Rx clonidine HCl 0.1 mg tablet 0.1 mg PO BID #180 tabs 10/03/23 02/21/24 Rx metoprolol succinate 25 mg 25 mg PO DAILY #30 tabs 10/03/23 02/21/24 Rx tablet,extended release 24 hr pantoprazole 40 mg tablet,delayed 40 mg PO BID #180 tabs 10/03/23 02/21/24 Rx release insulin glargine 100 unit/mL (3 See Rx Instructions .Route 11/07/23 02/21/24 Rx mL) subcutaneous pen (Lantus .COMPLEX #15 mL Solostar U-100 Insulin) pen needle, diabetic 32 gauge x #100 ea 11/07/23 02/21/24 Rx 5/32 (UltiCare Pen Needle) fluticasone fur. 100 mcg-umeclid See Rx Instructions .Route 11/14/23 02/21/24 Rx 62.5 mcg-vilant 25 mcg .COMPLEX #180 ea inhalat.powder (Trelegy Ellipta) amlodipine 10 mg tablet See Rx Instructions .Route 12/12/23 02/21/24 Rx .COMPLEX #90 tabs metolazone 5 mg tablet See Rx Instructions .Route 12/28/23 02/21/24 Rx .COMPLEX #90 tabs alprazolam 0.5 mg tablet (Xanax) 0.5 mg PO BID PRN anxiety #60 tabs 02/10/24 02/21/24 Rx tramadol 37.5 mg-acetaminophen 325 1 tablet PO Q6H PRN pain #120 tabs 02/17/24 02/21/24 Rx mg tablet Allergies Allergy/AdvReac Type Severity Reaction Status Date / Time No Known Allergies Allergy Verified 02/21/24 11:41 Vital Signs Vital Signs - 24 hr 02/22/24 18:00 02/22/24 18:00 02/22/24 18:00 Temperature Pulse Rate 101 H 101 H 101 H Respiratory Rate 20 Blood Pressure 115/60 115/61 Pulse Oximetry 95 Oxygen Delivery Oxygen Flow Rate 02/22/24 19:31 02/22/24 20:00 02/22/24 20:00 Temperature 37.3 C Pulse Rate 110 H 103 H 110 H Respiratory Rate 22 H Blood Pressure 101/52 L 101/52 L Pulse Oximetry 93 Oxygen Delivery Oxygen Flow Rate 02/22/24 20:45 02/22/24 20:45 02/22/24 20:54 Temperature Pulse Rate 107 H 107 H 105 H Respiratory Rate 22 H 22 H Blood Pressure Pulse Oximetry 96 Oxygen Delivery Nasal Cannula Oxygen Flow Rate 2 02/22/24 21:10 02/22/24 21:10 02/22/24 21:40 Temperature Pulse Rate 110 H 110 H 102 H Respiratory Rate 24 H Blood Pressure 101/52 L 101/52 L Pulse Oximetry 95 Oxygen Delivery CPAP Oxygen Flow Rate 02/22/24 22:00 02/22/24 22:00 02/22/24 22:08 Temperature Pulse Rate 96 110 H 110 H Respiratory Rate Blood Pressure 109/56 L 109/56 L Pulse Oximetry 98 Oxygen Delivery Oxygen Flow Rate 02/22/24 23:43 02/23/24 00:00 02/23/24 00:00 Temperature Pulse Rate 122 H 106 H 122 H Respiratory Rate 22 H Blood Pressure 103/63 103/63 Pulse Oximetry 95 Oxygen Delivery Oxygen Flow Rate 02/23/24 01:53 02/23/24 02:00 02/23/24 02:00 Temperature Pulse Rate 113 H 113 H 113 H Respiratory Rate Blood Pressure 120/67 120/67 Pulse Oximetry 97 Oxygen Delivery Oxygen Flow Rate 02/23/24 04:00 02/23/24 04:00 02/23/24 04:01 Temperature Pulse Rate 127 H 129 H 113 H Respiratory Rate Blood Pressure 126/68 120/67 Pulse Oximetry Oxygen Delivery Oxygen Flow Rate 02/23/24 04:02 02/23/24 06:00 02/23/24 06:00 Temperature 36.7 C Pulse Rate 127 H 129 H 116 H Respiratory Rate 26 H Blood Pressure 126/68 112/69 Pulse Oximetry 95 95 Oxygen Delivery Oxygen Flow Rate 02/23/24 06:26 02/23/24 06:26 02/23/24 08:00 Temperature 36.7 C Pulse Rate 140 H 140 H 60 Respiratory Rate 24 H Blood Pressure 112/69 112/69 116/76 Pulse Oximetry 93 Oxygen Delivery Oxygen Flow Rate 02/23/24 08:00 02/23/24 08:00 02/23/24 08:00 Temperature Pulse Rate 137 H 113 H Respiratory Rate Blood Pressure 116/76 Pulse Oximetry 92 Oxygen Delivery Nasal Cannula Oxygen Flow Rate 2 02/23/24 08:15 02/23/24 08:15 02/23/24 08:27 Temperature Pulse Rate 121 H 121 H 128 H Respiratory Rate 24 H 24 H Blood Pressure Pulse Oximetry 96 Oxygen Delivery Nasal Cannula Oxygen Flow Rate 2 02/23/24 09:03 02/23/24 10:00 02/23/24 10:00 Temperature Pulse Rate 137 H 92 97 Respiratory Rate Blood Pressure 105/62 Pulse Oximetry Oxygen Delivery Oxygen Flow Rate 02/23/24 10:00 02/23/24 11:29 02/23/24 12:00 Temperature 36.7 C Pulse Rate 97 112 H Respiratory Rate 24 H Blood Pressure 105/62 120/65 Pulse Oximetry 94 95 Oxygen Delivery Nasal Cannula Oxygen Flow Rate 1 02/23/24 12:00 02/23/24 12:00 02/23/24 12:45 Temperature Pulse Rate 122 H 112 H 135 H Respiratory Rate 24 H Blood Pressure 120/65 114/78 Pulse Oximetry 93 Oxygen Delivery Nasal Cannula Oxygen Flow Rate 2 02/23/24 13:00 02/23/24 13:02 02/23/24 13:08 Temperature Pulse Rate 115 H 115 H 133 H Respiratory Rate 24 H Blood Pressure 104/64 104/64 104/64 Pulse Oximetry 92 Oxygen Delivery Nasal Cannula Oxygen Flow Rate 2 02/23/24 13:15 02/23/24 13:30 02/23/24 14:00 Temperature Pulse Rate 116 H 121 H 114 H Respiratory Rate 23 H 24 H Blood Pressure 112/79 123/72 131/73 Pulse Oximetry 93 94 Oxygen Delivery Nasal Cannula Nasal Cannula Oxygen Flow Rate 2 2 02/23/24 14:00 02/23/24 14:00 02/23/24 14:25 Temperature 36.7 C 36.9 C Pulse Rate 120 H 114 H 114 H Respiratory Rate 20 16 Blood Pressure 131/73 88/64 L Pulse Oximetry 95 96 Oxygen Delivery Oxygen Flow Rate 02/23/24 14:38 02/23/24 14:38 02/23/24 14:45 Temperature Pulse Rate 129 H 141 H Respiratory Rate Blood Pressure 96/71 L 114/70 Pulse Oximetry Oxygen Delivery Oxygen Flow Rate 2 02/23/24 15:00 02/23/24 15:15 02/23/24 15:30 Temperature Pulse Rate 139 H 130 H 150 H Respiratory Rate Blood Pressure 123/100 H 125/60 134/86 Pulse Oximetry Oxygen Delivery Oxygen Flow Rate 02/23/24 15:45 02/23/24 16:00 02/23/24 16:15 Temperature Pulse Rate 147 H 125 H 120 H Respiratory Rate Blood Pressure 117/71 120/61 119/95 H Pulse Oximetry Oxygen Delivery Oxygen Flow Rate 02/23/24 16:30 02/23/24 16:45 02/23/24 17:00 Temperature Pulse Rate 142 H 125 H 135 H Respiratory Rate Blood Pressure 121/94 H 116/86 123/78 Pulse Oximetry Oxygen Delivery Oxygen Flow Rate 02/23/24 17:15 Temperature Pulse Rate 149 H Respiratory Rate Blood Pressure 138/91 H Pulse Oximetry Oxygen Delivery Oxygen Flow Rate Exam 2 Narrative: General: Nontoxic-appearing gentleman sitting up in bed in no acute distress. He is in good spirits. Weight: 108.4 kg. BMI: 34.3. HEENT: Normocephalic, atraumatic. PERRL, EOMI. Sclera anicteric. Oral mucosa moist. Neck: Supple. Respiratory: Respirations are nonlabored and he is speaking in full sentences. Lung sounds are a bit diminished at the bases with scattered crackles. Cardiovascular: Irregularly irregular rate and rhythm. Chest: Dialysis catheter in the right anterior chest. Gastrointestinal: Abdomen is soft, protuberant, nontender, and nondistended with positive bowel sounds. Skin: Warm and dry. No rash or lesions on limited exam. Extremities: No cyanosis or clubbing. Trace lower extremity edema. No palpable knots or cords. Peripheral pulses palpable. Neurological: Alert. Cranial nerves 2-12 are grossly intact. Speech is clear. No facial asymmetry. No gross focal deficits to casual conversation. Psychiatric: Pleasant and cooperative with normal mood and affect. Judgment and insight intact. Results Lab Results 02/23/24 09:47 02/23/24 09:47 Lab results: Most recent lab results Calcium 8.7 mg/dL (8.4-10.2) 02/23/24 09:47 Magnesium 2.2 mg/dL (1.6-2.3) 02/22/24 03:48
--- NOTE | 2024-02-23 17:34 | P.PNNP_ITS ---
Progress Note: A&P Assessment and Plan (1) ESRD on dialysis: Code(s): N18.6 - End stage renal disease; Z99.2 - Dependence on renal dialysis Status: Acute Assessment and Plan: * end-stage renal disease * Hypertensive renal disease and renal failure * Anemia chronic kidney disease * Secondary hyperparathyroidism * Admitted with atrial fibrillation and rapid ventricular response with shortness of breath. * Patient is being treated for pneumonia as well. Plan --dialysis today - discussed with patient plan, keep on a TTS schedule - atrial fibrillation:treatment plans per Cardiology -antibiotics per hospitalist team Subjective Date/time seen: 02/23/24 17:34 Interval history: End-stage renal disease follow-up. Review of Systems Review of Systems: Seen and examined earlier today. Status post RODNEY, reportedly has a blood clot present. Admitted with pneumonia, atrial fibrillation and rapid ventricular response. Exam Narrative: GENERAL: Ill-appearing, in no acute distress. Well-nourished. - EYES: EOMI. Anicteric. - HENT: Moist mucous membranes. no cyano sis - LUNGS: Coarse breath sound bilaterall y, Comfortable breathing when seen - CARDIOVASCULAR: Irregular irregular r hythm, tachycardia. No murmur. No JVD. - ABDOMEN: Soft, non-tender and non-dist ended. No palpable masses. - EXTREMITIES: No edema. Peripheral puls es 2+. Non-tender. - NEUROLOGIC: No focal neurological defi cits. General weakness - PSYCHIATRIC: Awake, Alert and oriented x 3. Appropriate mood and affect. - SKIN: No rashes or lesions. Warm. - LYMPH: No cervical lymphadenopathy. Objective Data Vital Signs Vital Signs: Vital Signs - 24 hr 02/22/24 18:00 02/22/24 18:00 02/22/24 18:00 Temperature Pulse Rate 101 H 101 H 101 H Respiratory Rate 20 Blood Pressure 115/60 115/61 Pulse Oximetry 95 Oxygen Delivery Oxygen Flow Rate 02/22/24 19:31 02/22/24 20:00 02/22/24 20:00 Temperature 37.3 C Pulse Rate 110 H 103 H 110 H Respiratory Rate 22 H Blood Pressure 101/52 L 101/52 L Pulse Oximetry 93 Oxygen Delivery Oxygen Flow Rate 02/22/24 20:45 02/22/24 20:45 02/22/24 20:54 Temperature Pulse Rate 107 H 107 H 105 H Respiratory Rate 22 H 22 H Blood Pressure Pulse Oximetry 96 Oxygen Delivery Nasal Cannula Oxygen Flow Rate 2 02/22/24 21:10 02/22/24 21:10 02/22/24 21:40 Temperature Pulse Rate 110 H 110 H 102 H Respiratory Rate 24 H Blood Pressure 101/52 L 101/52 L Pulse Oximetry 95 Oxygen Delivery CPAP Oxygen Flow Rate 02/22/24 22:00 02/22/24 22:00 02/22/24 22:08 Temperature Pulse Rate 96 110 H 110 H Respiratory Rate Blood Pressure 109/56 L 109/56 L Pulse Oximetry 98 Oxygen Delivery Oxygen Flow Rate 02/22/24 23:43 02/23/24 00:00 02/23/24 00:00 Temperature Pulse Rate 122 H 106 H 122 H Respiratory Rate 22 H Blood Pressure 103/63 103/63 Pulse Oximetry 95 Oxygen Delivery Oxygen Flow Rate 02/23/24 01:53 02/23/24 02:00 02/23/24 02:00 Temperature Pulse Rate 113 H 113 H 113 H Respiratory Rate Blood Pressure 120/67 120/67 Pulse Oximetry 97 Oxygen Delivery Oxygen Flow Rate 02/23/24 04:00 02/23/24 04:00 02/23/24 04:01 Temperature Pulse Rate 127 H 129 H 113 H Respiratory Rate Blood Pressure 126/68 120/67 Pulse Oximetry Oxygen Delivery Oxygen Flow Rate 02/23/24 04:02 02/23/24 06:00 02/23/24 06:00 Temperature 36.7 C Pulse Rate 127 H 129 H 116 H Respiratory Rate 26 H Blood Pressure 126/68 112/69 Pulse Oximetry 95 95 Oxygen Delivery Oxygen Flow Rate 02/23/24 06:26 02/23/24 06:26 02/23/24 08:00 Temperature 36.7 C Pulse Rate 140 H 140 H 60 Respiratory Rate 24 H Blood Pressure 112/69 112/69 116/76 Pulse Oximetry 93 Oxygen Delivery Oxygen Flow Rate 02/23/24 08:00 02/23/24 08:00 02/23/24 08:00 Temperature Pulse Rate 137 H 113 H Respiratory Rate Blood Pressure 116/76 Pulse Oximetry 92 Oxygen Delivery Nasal Cannula Oxygen Flow Rate 2 02/23/24 08:15 02/23/24 08:15 02/23/24 08:27 Temperature Pulse Rate 121 H 121 H 128 H Respiratory Rate 24 H 24 H Blood Pressure Pulse Oximetry 96 Oxygen Delivery Nasal Cannula Oxygen Flow Rate 2 02/23/24 09:03 02/23/24 10:00 02/23/24 10:00 Temperature Pulse Rate 137 H 92 97 Respiratory Rate Blood Pressure 105/62 Pulse Oximetry Oxygen Delivery Oxygen Flow Rate 02/23/24 10:00 02/23/24 11:29 02/23/24 12:00 Temperature 36.7 C Pulse Rate 97 112 H Respiratory Rate 24 H Blood Pressure 105/62 120/65 Pulse Oximetry 94 95 Oxygen Delivery Nasal Cannula Oxygen Flow Rate 1 02/23/24 12:00 02/23/24 12:00 02/23/24 12:45 Temperature Pulse Rate 122 H 112 H 135 H Respiratory Rate 24 H Blood Pressure 120/65 114/78 Pulse Oximetry 93 Oxygen Delivery Nasal Cannula Oxygen Flow Rate 2 02/23/24 13:00 02/23/24 13:02 02/23/24 13:08 Temperature Pulse Rate 115 H 115 H 133 H Respiratory Rate 24 H Blood Pressure 104/64 104/64 104/64 Pulse Oximetry 92 Oxygen Delivery Nasal Cannula Oxygen Flow Rate 2 02/23/24 13:15 02/23/24 13:30 02/23/24 14:00 Temperature Pulse Rate 116 H 121 H 114 H Respiratory Rate 23 H 24 H Blood Pressure 112/79 123/72 131/73 Pulse Oximetry 93 94 Oxygen Delivery Nasal Cannula Nasal Cannula Oxygen Flow Rate 2 2 02/23/24 14:00 02/23/24 14:00 02/23/24 14:25 Temperature 36.7 C 36.9 C Pulse Rate 120 H 114 H 114 H Respiratory Rate 20 16 Blood Pressure 131/73 88/64 L Pulse Oximetry 95 96 Oxygen Delivery Oxygen Flow Rate 02/23/24 14:38 02/23/24 14:38 02/23/24 14:45 Temperature Pulse Rate 129 H 141 H Respiratory Rate Blood Pressure 96/71 L 114/70 Pulse Oximetry Oxygen Delivery Oxygen Flow Rate 2 02/23/24 15:00 02/23/24 15:15 02/23/24 15:30 Temperature Pulse Rate 139 H 130 H 150 H Respiratory Rate Blood Pressure 123/100 H 125/60 134/86 Pulse Oximetry Oxygen Delivery Oxygen Flow Rate 02/23/24 15:45 02/23/24 16:00 02/23/24 16:15 Temperature Pulse Rate 147 H 125 H 120 H Respiratory Rate Blood Pressure 117/71 120/61 119/95 H Pulse Oximetry Oxygen Delivery Oxygen Flow Rate 02/23/24 16:30 02/23/24 16:45 02/23/24 17:00 Temperature Pulse Rate 142 H 125 H 135 H Respiratory Rate Blood Pressure 121/94 H 116/86 123/78 Pulse Oximetry Oxygen Delivery Oxygen Flow Rate 02/23/24 17:15 Temperature Pulse Rate 149 H Respiratory Rate Blood Pressure 138/91 H Pulse Oximetry Oxygen Delivery Oxygen Flow Rate Intake/Output Intake/Output: Intake & Output 02/20/24 02/21/24 02/22/24 02/23/24 23:59 23:59 23:59 23:59 Intake Total 114.4 2257.4 510.8 Output Total 460 700 Balance -345.6 1557.4 510.8 Meds/Results Medications: Active Medications Generic Name Dose Route Start Last Admin Trade Name Freq PRN Reason Stop Dose Admin Acetaminophen 650 mg 02/21/24 17:03 Acetaminophen 325 Mg Tablet PO Q6H PRN Mild Pain (1-3) or Fever Albuterol 2.5 mg 02/22/24 08:43 Albuterol Sulfate Neb 2.5 Mg/3 Ml Inh INHALATION Q4HRT PRN Shortness Of Breath Albuterol/Ipratropium 3 ml 02/22/24 14:00 02/23/24 13:36 Ipratropium 0.5 Mg/Albuterol Sulfate 2.5 Mg Ampul.Neb 3 Ml INHALATION Not Given Q6HRT FAISAL Alprazolam 0.5 mg 02/21/24 23:13 02/22/24 21:20 Alprazolam (*Crx) 0.5 Mg Tablet PO 0.5 mg BID PRN Administration anxiety Apixaban 2.5 mg 02/22/24 10:55 02/23/24 09:03 Apixaban 2.5 Mg Tablet PO 2.5 mg Q12HR FAISAL Administration Atorvastatin Calcium 20 mg 02/22/24 09:00 02/23/24 09:03 Atorvastatin 20 Mg Tablet PO 20 mg DAILY FAISAL Administration Clonidine HCl 0.1 mg 02/22/24 09:00 02/23/24 09:04 Clonidine Hcl 0.1 Mg Tablet PO 0.1 mg DAILY FAISAL Administration Dextrose 12.5 gm 02/21/24 17:04 Dextrose 50% 25 Gm/50 Ml Syringe IV PUSH PRN PRN Hypoglycemia Protocol Fluticasone/Umeclidinium/Vilanterol 1 puff 02/22/24 09:00 02/23/24 08:14 Fluticasone/Umeclidin/Vilanter 100-62.5-25 Mcg Ellipta INHALATION 1 puff DAILY FAISAL Administration Furosemide 20 mg 02/22/24 09:00 02/23/24 09:02 Furosemide 20 Mg Tablet PO 20 mg QAM FAISAL Administration Glucagon 1 mg 02/21/24 17:04 Glucagon For Inj 1 Mg Vial IM PRN PRN Hypoglycemia Protocol Glucose 15 gm 02/21/24 17:04 Glucose Oral Gel 15 Gm Of Glucse In 37.5 Gm Tube PO PRN PRN Hypoglycemia Protocol Hydralazine HCl 25 mg 02/21/24 23:20 02/23/24 09:03 Hydralazine Hcl 25 Mg Tablet PO 25 mg TID FAISAL Administration Dextrose 1,000 mls @ 100 mls/hr 02/21/24 17:04 Dextrose 5% 1,000 Ml IVPB PRN PRN Hypoglycemia Protocol Diltiazem HCl 100 mg in 100 mls @ 15 mls/hr 02/22/24 00:30 02/23/24 14:00 Cardizem 100 Mg/100 Ml IV CONT 15 mg/hr .Q6H40M FAISAL 15 mls/hr Infusion 15 MG/HR Azithromycin 500 mg in 250 mls @ 250 mls/hr 02/22/24 09:00 02/22/24 09:19 Zithromax IVPB 250 mls/hr Q24H FAISAL Administration Ceftriaxone Sodium 2 gm in 100 mls @ 200 mls/hr 02/22/24 09:00 02/22/24 09:19 Rocephin 2 Gm/Ns 100 Ml IVPB 200 mls/hr Q24H FAISAL Administration Insulin Aspart 3 - 6 units 02/22/24 08:00 02/23/24 11:21 Insulin Aspart (*Bkc) 100 Units/Ml SUB-Q Not Given TIDWM FAISAL Protocol Insulin Aspart 1 - 3 units 02/21/24 21:00 02/22/24 21:06 Insulin Aspart (*Bkc) 100 Units/Ml SUB-Q Not Given HS FAISAL Protocol Insulin Glargine 17 units 02/22/24 21:00 02/22/24 21:06 Insulin Glargine (*Bkc) 100 Units/Ml SUB-Q 17 units HS FAISAL Administration Latanoprost 1 drop 02/21/24 23:25 02/22/24 16:55 Latanoprost 0.005% Op Soln 2.5 Ml Btl EACH EYE 1 drop QPM FAISAL Administration Metolazone 5 mg 02/22/24 09:00 02/23/24 09:02 Metolazone 5 Mg Tablet BY MOUTH 5 mg DAILY FAISAL Administration Metoprolol Succinate 200 mg 02/24/24 09:00 Metoprolol Succinate Ext Rel 50 Mg Tabcr PO QAM FAISAL Pantoprazole Sodium 40 mg 02/21/24 23:25 02/23/24 09:04 Pantoprazole 40 Mg Tablet PO 40 mg BID FAISAL Administration Tramadol/Acetaminophen 1 tab 02/21/24 23:13 02/22/24 21:19 Tramadol/Acetaminophen (*Crx) (Ultracet) 37.5/325 Mg Tablet PO 1 tab Q6H PRN Administration PAIN RATED 4-6 Radiology Results: ITS Impressions Chest X-Ray 02/21/24 12:21 IMPRESSION: Bilateral basal pneumonia. Cardiomegaly with cardiac decompensation and pulmonary edema is not excluded. Bilateral interstitial pneumonitis is also possible. Venous Doppler Study 02/22/24 08:54 IMPRESSION: Negative bilateral lower extremity venous US. No deep vein thrombosis. Labs Labs: Laboratory Results - last 24 hr 02/21/24 02/22/24 02/23/24 17:44 20:56 07:28 WBC RBC Hgb Hct MCV MCH MCHC RDW Plt Count MPV Immature Gran % (Auto) Neut % (Auto) Lymph % (Auto) [place] % (Auto) Eos % (Auto) Baso % (Auto) Lymph # (Auto) [place] # (Auto) Eos # (Auto) Baso # (Auto) Abs Immat Gran (auto) Absolute Neuts (auto) Absolute Nucleated RBC Nucleated RBC % VBG pH VBG pCO2 VBG pO2 VBG HCO3 O2 Delivery Device O2 Liters/Min FiO2 Sodium Potassium Chloride Carbon Dioxide Anion Gap BUN Creatinine Estim Creat Clear Calc Estimated GFR Glucose POC Capillary Glucose 178 H 138 H Calcium Hep Bs Antigen Negative 02/23/24 02/23/24 02/23/24 09:47 11:16 11:55 WBC 10.4 H RBC 2.95 L Hgb 10.0 L Hct 29.3 L MCV 99.3 MCH 33.9 MCHC 34.1 RDW 13.0 Plt Count 161 MPV 8.9 Immature Gran % (Auto) 0.4 Neut % (Auto) 84.5 H Lymph % (Auto) 5.0 L [place] % (Auto) 8.9 H Eos % (Auto) 0.9 Baso % (Auto) 0.3 Lymph # (Auto) 0.52 L [place] # (Auto) 0.9 H Eos # (Auto) 0.1 Baso # (Auto) 0.0 Abs Immat Gran (auto) 0.04 H Absolute Neuts (auto) 8.8 H Absolute Nucleated RBC 0.000 Nucleated RBC % 0.0 VBG pH 7.483 H* VBG pCO2 31.8 L VBG pO2 29.0 L VBG HCO3 23.3 L O2 Delivery Device Nasal cannula O2 Liters/Min 2.0 FiO2 28 Sodium 133 L Potassium 3.8 Chloride 97 L Carbon Dioxide 28 Anion Gap 8 BUN 51 H D Creatinine 4.19 H Estim Creat Clear Calc 15 Estimated GFR 14 L Glucose 147 H POC Capillary Glucose 152 H Calcium 8.7 Hep Bs Antigen
[2024-02-23] MEDS: HEPARIN SODIUM 1,000 UNITS/ML VIAL 6000 UNITS IV PUSH (18:33)
[2024-02-23 19:10] LABS: Glucose Point of Care 178 mg/dl (65-105)
[2024-02-23] MEDS: cefTRIAXone 2 GM/NS 100 ML 2 GM/100 ML BAG IVPB (19:10)
[2024-02-23] MEDS: INSULIN GLARGINE (*BKC) 100 UNITS/ML 17 UNITS SUB-Q (19:57)
[2024-02-23] MEDS: INSULIN ASPART (*BKC) 100 UNITS/ML SUB-Q (19:58)
[2024-02-23] MEDS: AZITHROMYCIN 500 MG/NS 250 ML 500 MG/250 ML BAG 250 MG IVPB (20:01)
[2024-02-23] MEDS: traMADol/ACETAMINOPHEN (*CRX) (ULTRACET) 37.5/325 MG TABLET 1 TAB PO (21:27)
[2024-02-23] MEDS: ALPRAZolam (*CRX) 0.5 MG TABLET PO (21:27)
[2024-02-24] VITALS (28 sets, daily range): BP systolic 109–157; BP diastolic 57–92; PULSE 50–151; RESP 18–24; TEMP 36.8–37.2; O2SAT 93–98
[2024-02-24 00:05] LABS: Glucose Point of Care 214 mg/dl (65-105)
[2024-02-24] MEDS: dilTIAZem 100 MG/100 ML 100 MG/100 ML BAG 15 MG IV CONT ×2 (02:00→08:25)
[2024-02-24 05:06] LABS: Basophils Absolute Auto 0.1 K/mm3 (0.0-0.1); Basophils Percent Auto 0.6 % (0.2-1.2); Eosinophils Absolute Auto 0.1 K/mm3 (0-0.3); Eosinophils Percent Auto 1.3 % (0-4.4); Hematocrit 30.4 % (42.0-52.0); Hemoglobin 10.3 g/dL (14.0-18.0); Immature Granulocyte Absolute 0.03 K/mm3 (0.00-0.031); Immature Granulocyte Percent A 0.3 % (0-0.5); Lymphocytes Absolute Auto 0.61 K/mm3 (0.9-3.2); Lymphocytes Percent Auto 5.9 % (18.3-44.2); Mean Corpuscular HGB Conc 33.9 g/dl (32-36); Mean Corpuscular Hemoglobin 34.4 pg (26-34); Mean Corpuscular Volume 101.7 fl (80-100); Monocytes Absolute Auto 1.1 K/mm3 (0.1-0.6); Neutrophils Absolute Auto 8.4 K/mm3 (1.3-6.7); Neutrophils Percent Auto 80.9 % (45.5-73.1); Platelet Count Result 166 k/mm3 (150-375); Red Blood Count 2.99 M/mm3 (4.6-6.20); Red Cell Distribution Width 13.1 % (11.5-14.5); White Blood Count 10.4 K/mm3 (4.5-10.0)
[2024-02-24 05:21] LABS: Anion Gap 7 mmol/L (4-12); Blood Urea Nitrogen 36 mg/dL (9-20); Calcium 8.7 mg/dL (8.4-10.2); Carbon Dioxide 31 mmol/L (22-30); Chloride 98 mmol/L (98-107); Estimated CRCL calculation 18 ml/min; Estimated Glomerular Filt Rate 17; Glucose 128 mg/dL (65-110); Potassium 3.9 mmol/L (3.4-5.0); Sodium 136 mmol/L (137-145)
[2024-02-24 07:56] LABS: Glucose Point of Care 175 mg/dl (65-105)
[2024-02-24] MEDS: METOPROLOL SUCCINATE EXT REL 50 MG TABCR 200 MG PO (08:27)
[2024-02-24] MEDS: ATORVASTATIN 20 MG TABLET PO (08:28)
[2024-02-24] MEDS: hydrALAZINE HCL 25 MG TABLET PO ×3 (08:28→17:28)
[2024-02-24] MEDS: APIXABAN 2.5 MG TABLET PO ×2 (08:28→21:03)
[2024-02-24] MEDS: metOLazone 5 MG TABLET BY MOUTH (08:28)
[2024-02-24] MEDS: PANTOPRAZOLE 40 MG TABLET PO ×2 (08:28→17:28)
[2024-02-24] MEDS: cloNIDine HCL 0.1 MG TABLET PO (08:28)
[2024-02-24] MEDS: FUROSEMIDE 20 MG TABLET PO (08:28)
[2024-02-24] MEDS: FLUTICASONE/UMECLIDIN/VILANTER 100-62.5-25 MCG ELLIPTA 1 PUFF INHALATION (09:01)
[2024-02-24] MEDS: IPRATROPIUM 0.5 MG/ALBUTEROL SULFATE 2.5 MG AMPUL.NEB 3 ML INHALATION ×4 (09:01→20:04)
--- NOTE | 2024-02-24 09:19 | PM.IMPN ---
Progress Note: A&P Assessment and Plan (1) Atrial fibrillation with rapid ventricular response: Code(s): I48.91 - Unspecified atrial fibrillation Status: Acute (2) Hypomagnesemia: Code(s): E83.42 - Hypomagnesemia Status: Acute (3) Hypertension: Code(s): I10 - Essential (primary) hypertension Status: Acute (4) End-stage renal disease on hemodialysis: Code(s): N18.6 - End stage renal disease; Z99.2 - Dependence on renal dialysis Status: Acute (5) Chronic obstructive pulmonary disease: Qualifiers: COPD type: unspecified COPD Qualified Code(s): J44.9 - Chronic obstructive pulmonary disease, unspecified Code(s): J44.9 - Chronic obstructive pulmonary disease, unspecified Status: Acute (6) Obstructive sleep apnea: Code(s): G47.33 - Obstructive sleep apnea (adult) (pediatric) Status: Acute (7) Insulin dependent diabetes mellitus: Status: Acute Plan This is a very pleasant 83-year-old male with paroxysmal atrial fibrillation no longer on chronic anticoagulation due to GI bleeding, duodenal ulcers, 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 proBNP 21,200, troponin 0.019. Chest x-ray showed bibasilar pneumonia and cardiomegaly with probable pulmonary edema. AFib RVR The patient presented to the emergency department from his [facility] erector's office for evaluation after he was found to be in rapid atrial fibrillation Patient mentions that his heart rate has been quite high for the past 1 week associated with shortness breath. Chest x-ray shows pulmonary edema, He was started on a diltiazem drip in the ED with some improvement in his rates. He is only on 25 mg of metoprolol succinate today which can be titrated up for better rate control. For now we will increase that to 50 mg daily and decrease clonidine to 0.1 mg daily and adjust as needed. 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 Technically difficult study with limited views. 2. Left ventricular chamber dimension is normal. 3. Left ventricular systolic function is normal, estimated at 65-70%. 4. There is mildly increased left ventricular wall thickness. 5. Left atrial chamber dimension is moderately enlarged. 6. There is mild tricuspid valve regurgitation. Patient's shortness breath, x-ray shows pulmonary congestion Received IV furosemide May need more dialysis COPD exacerbation Patient leukocytosis 13,700 upon arrival in the ED, X-ray shows bilateral basal pneumonia Start DuoNeb scheduled, albuterol nebulizer p.r.n. Follow-up VBG on azithromycin ceftriaxone IV Type 2 diabetes Continue basal insulin and initiate sliding scale insulin, Accu-Cheks, and hypoglycemic protocol. His home medications will be reviewed and resumed as appropriate. Chronic anemia Stable Possible due to end-stage renal disease Subjective Date/time seen: 02/24/24 09:19 Interval history: Patient 2 L oxygen, still has AFib RVR. Cardioversion could not performed because of history of ventricle thrombosis. Dyspnea improving after dialysis, still significant 5 managed exertion. Patient has tachycardia tachypnea, patient on 2-3 L oxygen per minutes. Patient denies chest pain abdomen pain nausea vomiting diarrhea Exam Narrative: GENERAL: Ill-appearing, in no acute distress. Well-nourished. - EYES: EOMI. Anicteric. - HENT: Moist mucous membranes. - LUNGS: Coarse breath sound bilaterally, tachypnea . - CARDIOVASCULAR: Irregular irregular rhythm, tachycardia. No murmur. No JVD. - ABDOMEN: Soft, non-tender and non-distended. No palpable masses. - EXTREMITIES: No edema. Peripheral pulses 2+. Non-tender. - NEUROLOGIC: No focal neurological deficits. CN II-XII grossly intact. General weakness - PSYCHIATRIC: Awake, Alert and oriented x 3. Appropriate mood and affect. - SKIN: No rashes or lesions. Warm. - LYMPH: No cervical lymphadenopathy. Objective Data Vital Signs Vital Signs: Vital Signs - 24 hr 02/23/24 10:00 02/23/24 10:00 02/23/24 10:00 Temperature Pulse Rate 92 97 97 Respiratory Rate Blood Pressure 105/62 105/62 Pulse Oximetry Oxygen Delivery Oxygen Flow Rate 02/23/24 11:29 02/23/24 12:00 02/23/24 12:00 Temperature 98.0 F Pulse Rate 112 H 122 H Respiratory Rate 24 H Blood Pressure 120/65 Pulse Oximetry 94 95 Oxygen Delivery Nasal Cannula Oxygen Flow Rate 1 02/23/24 12:00 02/23/24 12:45 02/23/24 13:00 Temperature Pulse Rate 112 H 135 H 115 H Respiratory Rate 24 H 24 H Blood Pressure 120/65 114/78 104/64 Pulse Oximetry 93 92 Oxygen Delivery Nasal Cannula Nasal Cannula Oxygen Flow Rate 2 2 02/23/24 13:02 02/23/24 13:08 02/23/24 13:15 Temperature Pulse Rate 115 H 133 H 116 H Respiratory Rate 23 H Blood Pressure 104/64 104/64 112/79 Pulse Oximetry 93 Oxygen Delivery Nasal Cannula Oxygen Flow Rate 2 02/23/24 13:30 02/23/24 14:00 02/23/24 14:00 Temperature Pulse Rate 121 H 114 H 120 H Respiratory Rate 24 H Blood Pressure 123/72 131/73 Pulse Oximetry 94 Oxygen Delivery Nasal Cannula Oxygen Flow Rate 2 02/23/24 14:00 02/23/24 14:25 02/23/24 14:38 Temperature 98.0 F 98.4 F Pulse Rate 114 H 114 H Respiratory Rate 20 16 Blood Pressure 131/73 88/64 L Pulse Oximetry 95 96 Oxygen Delivery Oxygen Flow Rate 2 02/23/24 14:38 02/23/24 14:45 02/23/24 15:00 Temperature Pulse Rate 129 H 141 H 139 H Respiratory Rate Blood Pressure 96/71 L 114/70 123/100 H Pulse Oximetry Oxygen Delivery Oxygen Flow Rate 02/23/24 15:15 02/23/24 15:30 02/23/24 15:45 Temperature Pulse Rate 130 H 150 H 147 H Respiratory Rate Blood Pressure 125/60 134/86 117/71 Pulse Oximetry Oxygen Delivery Oxygen Flow Rate 02/23/24 16:00 02/23/24 16:00 02/23/24 16:15 Temperature Pulse Rate 125 H 129 H 120 H Respiratory Rate Blood Pressure 120/61 119/95 H Pulse Oximetry Oxygen Delivery Oxygen Flow Rate 02/23/24 16:30 02/23/24 16:45 02/23/24 17:00 Temperature Pulse Rate 142 H 125 H 135 H Respiratory Rate Blood Pressure 121/94 H 116/86 123/78 Pulse Oximetry Oxygen Delivery Oxygen Flow Rate 02/23/24 17:15 02/23/24 17:30 02/23/24 17:45 Temperature Pulse Rate 149 H 133 H 136 H Respiratory Rate Blood Pressure 138/91 H 131/64 112/75 Pulse Oximetry Oxygen Delivery Oxygen Flow Rate 02/23/24 18:00 02/23/24 18:00 02/23/24 18:09 Temperature Pulse Rate 124 H 138 H 155 H Respiratory Rate Blood Pressure 123/72 114/75 Pulse Oximetry Oxygen Delivery Oxygen Flow Rate 02/23/24 18:13 02/23/24 19:05 02/23/24 19:26 Temperature 98.4 F 98.1 F 98.1 F Pulse Rate 153 H 119 H 144 H Respiratory Rate 16 24 H 18 Blood Pressure 115/76 116/73 115/56 L Pulse Oximetry 98 94 90 Oxygen Delivery Oxygen Flow Rate 02/23/24 19:48 02/23/24 19:56 02/23/24 20:00 Temperature Pulse Rate 140 H 140 H 140 H Respiratory Rate 18 Blood Pressure 115/56 L 115/56 L Pulse Oximetry 90 Oxygen Delivery Nasal Cannula Oxygen Flow Rate 1 02/23/24 20:00 02/23/24 20:13 02/23/24 20:16 Temperature Pulse Rate 131 H 106 H 104 H Respiratory Rate 24 H Blood Pressure Pulse Oximetry 96 Oxygen Delivery Nasal Cannula Oxygen Flow Rate 2 02/23/24 20:28 02/23/24 21:55 02/23/24 22:00 Temperature Pulse Rate 102 H 125 H 126 H Respiratory Rate 22 H 18 Blood Pressure 116/64 Pulse Oximetry 91 Oxygen Delivery Oxygen Flow Rate 02/23/24 22:00 02/23/24 23:45 02/23/24 23:48 Temperature Pulse Rate 126 H 104 H 153 H Respiratory Rate 21 H 18 Blood Pressure 116/64 Pulse Oximetry 95 92 Oxygen Delivery CPAP Nasal Cannula Oxygen Flow Rate 3 02/23/24 23:48 02/24/24 00:00 02/24/24 00:00 Temperature 98.6 F Pulse Rate 123 H 128 H 128 H Respiratory Rate 19 Blood Pressure 115/92 H 115/92 H Pulse Oximetry 94 Oxygen Delivery Oxygen Flow Rate 02/24/24 01:50 02/24/24 02:00 02/24/24 02:00 Temperature Pulse Rate 123 H 121 H 121 H Respiratory Rate 22 H 20 Blood Pressure 115/74 Pulse Oximetry 98 Oxygen Delivery Oxygen Flow Rate 02/24/24 02:00 02/24/24 02:00 02/24/24 02:00 Temperature Pulse Rate 121 H 121 H 124 H Respiratory Rate 23 H Blood Pressure 115/74 115/74 Pulse Oximetry Oxygen Delivery Oxygen Flow Rate 02/24/24 03:59 02/24/24 04:00 02/24/24 04:00 Temperature 98.8 F Pulse Rate 108 H 123 H 135 H Respiratory Rate 18 18 Blood Pressure 124/84 Pulse Oximetry 95 93 Oxygen Delivery CPAP Oxygen Flow Rate 02/24/24 04:00 02/24/24 06:00 02/24/24 06:00 Temperature Pulse Rate 123 H 151 H 144 H Respiratory Rate Blood Pressure 109/68 114/73 Pulse Oximetry Oxygen Delivery Oxygen Flow Rate 02/24/24 06:00 02/24/24 07:46 02/24/24 08:25 Temperature 98.7 F 98.3 F Pulse Rate 123 H 137 H 138 H Respiratory Rate 18 22 H Blood Pressure 109/68 129/80 Pulse Oximetry 94 93 Oxygen Delivery Oxygen Flow Rate 02/24/24 08:25 02/24/24 08:27 02/24/24 09:01 Temperature Pulse Rate 138 H 134 H Respiratory Rate Blood Pressure Pulse Oximetry 94 Oxygen Delivery Nasal Cannula Oxygen Flow Rate 2 02/24/24 09:01 02/24/24 09:10 Temperature Pulse Rate 125 H 127 H Respiratory Rate 24 H 24 H Blood Pressure Pulse Oximetry Oxygen Delivery Oxygen Flow Rate Intake/Output Intake/Output: Intake & Output 02/21/24 02/22/24 02/23/24 02/24/24 23:59 23:59 23:59 23:59 Intake Total 114.4 2257.4 728.8 396.3 Output Total 200 387 4081 150 Balance -345.6 1557.4 -1996.2 246.3 Meds/Results Medications: Active Medications Generic Name Dose Route Start Last Admin Trade Name Freq PRN Reason Stop Dose Admin Acetaminophen 650 mg 02/21/24 17:03 Acetaminophen 325 Mg Tablet PO Q6H PRN Mild Pain (1-3) or Fever Albuterol 2.5 mg 02/22/24 08:43 Albuterol Sulfate Neb 2.5 Mg/3 Ml Inh INHALATION Q4HRT PRN Shortness Of Breath Albuterol/Ipratropium 3 ml 02/22/24 14:00 02/24/24 09:04 Ipratropium 0.5 Mg/Albuterol Sulfate 2.5 Mg Ampul.Neb 3 Ml INHALATION 3 ml Q6HRT FAISAL Administration Alprazolam 0.5 mg 02/21/24 23:13 02/23/24 21:27 Alprazolam (*Crx) 0.5 Mg Tablet PO 0.5 mg BID PRN Administration anxiety Apixaban 2.5 mg 02/22/24 10:55 02/24/24 08:28 Apixaban 2.5 Mg Tablet PO 2.5 mg Q12HR FAISAL Administration Atorvastatin Calcium 20 mg 02/22/24 09:00 02/24/24 08:28 Atorvastatin 20 Mg Tablet PO 20 mg DAILY FAISAL Administration Clonidine HCl 0.1 mg 02/22/24 09:00 02/24/24 08:28 Clonidine Hcl 0.1 Mg Tablet PO 0.1 mg DAILY FAISAL Administration Dextrose 12.5 gm 02/21/24 17:04 Dextrose 50% 25 Gm/50 Ml Syringe IV PUSH PRN PRN Hypoglycemia Protocol Fluticasone/Umeclidinium/Vilanterol 1 puff 02/22/24 09:00 02/24/24 09:01 Fluticasone/Umeclidin/Vilanter 100-62.5-25 Mcg Ellipta INHALATION 1 puff DAILY FAISAL Administration Furosemide 20 mg 02/22/24 09:00 02/24/24 08:28 Furosemide 20 Mg Tablet PO 20 mg QAM FAISAL Administration Glucagon 1 mg 02/21/24 17:04 Glucagon For Inj 1 Mg Vial IM PRN PRN Hypoglycemia Protocol Glucose 15 gm 02/21/24 17:04 Glucose Oral Gel 15 Gm Of Glucse In 37.5 Gm Tube PO PRN PRN Hypoglycemia Protocol Hydralazine HCl 25 mg 02/21/24 23:20 02/24/24 08:28 Hydralazine Hcl 25 Mg Tablet PO 25 mg TID FAISAL Administration Dextrose 1,000 mls @ 100 mls/hr 02/21/24 17:04 Dextrose 5% 1,000 Ml IVPB PRN PRN Hypoglycemia Protocol Diltiazem HCl 100 mg in 100 mls @ 15 mls/hr 02/22/24 00:30 02/24/24 08:25 Cardizem 100 Mg/100 Ml IV CONT 15 mg/hr .Q6H40M FAISAL 15 mls/hr Administration 15 MG/HR Ceftriaxone Sodium 2 gm in 100 mls @ 200 mls/hr 02/23/24 19:00 02/23/24 19:39 Rocephin 2 Gm/Ns 100 Ml IVPB Infused Q24H FAISAL Infusion Azithromycin 500 mg in 250 mls @ 250 mls/hr 02/23/24 20:00 02/23/24 20:01 Zithromax IVPB 250 mls/hr Q24H FAISAL Administration Insulin Aspart 3 - 6 units 02/22/24 08:00 02/24/24 08:27 Insulin Aspart (*Bkc) 100 Units/Ml SUB-Q Not Given TIDWM REPLACED BY [facility] Protocol Insulin Aspart 1 - 3 units 02/21/24 21:00 02/23/24 19:58 Insulin Aspart (*Bkc) 100 Units/Ml SUB-Q 1 units HS FAISAL Administration Protocol Insulin Glargine 17 units 02/22/24 21:00 02/23/24 19:57 Insulin Glargine (*Bkc) 100 Units/Ml SUB-Q 17 units HS FAISAL Administration Latanoprost 1 drop 02/21/24 23:25 02/23/24 19:07 Latanoprost 0.005% Op Soln 2.5 Ml Btl EACH EYE Not Given QPM FAISAL Metolazone 5 mg 02/22/24 09:00 02/24/24 08:28 Metolazone 5 Mg Tablet BY MOUTH 5 mg DAILY FAISAL Administration Metoprolol Succinate 200 mg 02/24/24 09:00 02/24/24 08:27 Metoprolol Succinate Ext Rel 50 Mg Tabcr PO 200 mg QAM FAISAL Administration Pantoprazole Sodium 40 mg 02/21/24 23:25 02/24/24 08:28 Pantoprazole 40 Mg Tablet PO 40 mg BID FAISAL Administration Tramadol/Acetaminophen 1 tab 02/21/24 23:13 02/23/24 21:27 Tramadol/Acetaminophen (*Crx) (Ultracet) 37.5/325 Mg Tablet PO 1 tab Q6H PRN Administration PAIN RATED 4-6 Radiology Results: ITS Impressions Chest X-Ray 02/21/24 12:21 IMPRESSION: Bilateral basal pneumonia. Cardiomegaly with cardiac decompensation and pulmonary edema is not excluded. Bilateral interstitial pneumonitis is also possible. Venous Doppler Study 02/22/24 08:54 IMPRESSION: Negative bilateral lower extremity venous US. No deep vein thrombosis. Labs Labs: Laboratory Results - last 24 hr 02/23/24 02/23/24 02/23/24 09:47 11:16 11:55 WBC 10.4 H RBC 2.95 L Hgb 10.0 L Hct 29.3 L MCV 99.3 MCH 33.9 MCHC 34.1 RDW 13.0 Plt Count 161 MPV 8.9 Immature Gran % (Auto) 0.4 Neut % (Auto) 84.5 H Lymph % (Auto) 5.0 L Kinney % (Auto) 8.9 H Eos % (Auto) 0.9 Baso % (Auto) 0.3 Lymph # (Auto) 0.52 L Kinney # (Auto) 0.9 H Eos # (Auto) 0.1 Baso # (Auto) 0.0 Abs Immat Gran (auto) 0.04 H Absolute Neuts (auto) 8.8 H Absolute Nucleated RBC 0.000 Nucleated RBC % 0.0 VBG pH 7.483 H* VBG pCO2 31.8 L VBG pO2 29.0 L VBG HCO3 23.3 L O2 Delivery Device Nasal cannula O2 Liters/Min 2.0 FiO2 28 Sodium 133 L Potassium 3.8 Chloride 97 L Carbon Dioxide 28 Anion Gap 8 BUN 51 H D Creatinine 4.19 H Estim Creat Clear Calc 15 Estimated GFR 14 L Glucose 147 H POC Capillary Glucose 152 H Calcium 8.7 02/23/24 02/23/24 02/24/24 19:03 19:55 04:52 WBC 10.4 H RBC 2.99 L Hgb 10.3 L Hct 30.4 L MCV 101.7 H MCH 34.4 H MCHC 33.9 RDW 13.1 Plt Count 166 MPV 9.0 Immature Gran % (Auto) 0.3 Neut % (Auto) 80.9 H Lymph % (Auto) 5.9 L Kinney % (Auto) 11.0 H Eos % (Auto) 1.3 Baso % (Auto) 0.6 Lymph # (Auto) 0.61 L Kinney # (Auto) 1.1 H Eos # (Auto) 0.1 Baso # (Auto) 0.1 Abs Immat Gran (auto) 0.03 Absolute Neuts (auto) 8.4 H Absolute Nucleated RBC 0.000 Nucleated RBC % 0.0 VBG pH VBG pCO2 VBG pO2 VBG HCO3 O2 Delivery Device O2 Liters/Min FiO2 Sodium 136 L Potassium 3.9 Chloride 98 Carbon Dioxide 31 H Anion Gap 7 BUN 36 H D Creatinine 3.42 H Estim Creat Clear Calc 18 Estimated GFR 17 L Glucose 128 H POC Capillary Glucose 178 H 214 H Calcium 8.7 02/24/24 07:44 WBC RBC Hgb Hct MCV MCH MCHC RDW Plt Count MPV Immature Gran % (Auto) Neut % (Auto) Lymph % (Auto) Kinney % (Auto) Eos % (Auto) Baso % (Auto) Lymph # (Auto) Kinney # (Auto) Eos # (Auto) Baso # (Auto) Abs Immat Gran (auto) Absolute Neuts (auto) Absolute Nucleated RBC Nucleated RBC % VBG pH VBG pCO2 VBG pO2 VBG HCO3 O2 Delivery Device O2 Liters/Min FiO2 Sodium Potassium Chloride Carbon Dioxide Anion Gap BUN Creatinine Estim Creat Clear Calc Estimated GFR Glucose POC Capillary Glucose 175 H Calcium
[2024-02-24 11:05] LABS: Glucose Point of Care 210 mg/dl (65-105)
[2024-02-24] MEDS: INSULIN ASPART (*BKC) 100 UNITS/ML SUB-Q ×2 (11:27→21:05)
--- NOTE | 2024-02-24 12:30 | PM.PNCARD ---
Progress Note: A&P Assessment and Plan (1) Atrial fibrillation with rapid ventricular response: Code(s): I48.91 - Unspecified atrial fibrillation Status: Acute Assessment and Plan: RODNEY 02/23/2024 shows left atrial appendage thrombus. Did not proceed with cardioversion given thrombus. Will work on rate control. Metoprolol increased to 200mg. Will stop IV Diltiazem drip and start PO Diltiazem 360mg daily. Will give a dose of IV Digoxin. If we are not able to get him adequately rate controlled, he may need to be transferred to tertiary center for Electrophysiology evaluation. (2) Thrombus of left atrial appendage: Code(s): I51.3 - Intracardiac thrombosis, not elsewhere classified Status: Acute Assessment and Plan: RODNEY from February 2020 showed possible left atrial appendage. He was on anticoagulation at that time with Xarelto. In June 2020, he was admitted for GI bleed. EGD showed mild gastritis with no bleeding. Colonoscopy showed a few medium-sized internal hemorrhoids in the rectum, multiple diverticula, 6mm flat polyp; no bleeding. Capsule endoscopy then showed only gastritis but no bleeding. It does not appear that he has been retried on anticoagulation since then and has been off of anticoagulation since that hospitalization. Patient denies any issues with GI bleeding or other bleeding since that episode in 2020. RODNEY on 02/23/2024 shows left atrial appendage thrombus. On anticoagulation with Eliquis now. Continue uninterrupted anticoagulation. Discussed risk of stroke from the left atrial appendage thrombus with the patient. (3) Hypertension: Code(s): I10 - Essential (primary) hypertension Status: Acute Assessment and Plan: Increased Metoprolol to 200mg now. In order to allow blood pressure room for rate controlling agents, recommend weaning off Clonidine. Clonidine decreased from 0.1mg PO BID to 0.1mg daily. Consider weaning off Hydralazine if additional blood pressure room needed for rate controlling meds. Discontinued home Amlodipine as patient on Diltiazem. Continue Lasix, Metolazone. (4) ESRD on dialysis: Code(s): N18.6 - End stage renal disease; Z99.2 - Dependence on renal dialysis Status: Acute Assessment and Plan: Nephrology consulted (5) Hyperlipidemia: Code(s): E78.5 - Hyperlipidemia, unspecified Status: Acute Assessment and Plan: Continue Atorvastatin. 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 Subjective Date/time seen: 02/24/24 12:30 Interval history: Reason for visit: Atrial fibrillation with RVR HPI: We are consulted for atrial fibrillation with RVR. This is an 83 year old male with paroxysmal atrial fibrillation, hypertension, hyperlipidemia, type 2 diabetes mellitus, pulmonary hypertension, ESRD on HD who is admitted for atrial fibrillation with RVR. Follows with Dr. Charles. Had an EKG done in our office that showed atrial fibrillation with RVR, therefore, was sent to the ED. He has been monitoring his heart rate at home and has been 130s to 150s at home for about the past week. EKG shows atrial fibrillation with RVR. Started on Diltiazem drip in the ED. Troponins are negative at 0.019, 0.020. NT pro BNP is 21,200. TSH level normal. CXR with bilateral basal pneumonia, cardiomegaly with cardiac decompensation and pulmonary edema is not excluded; bilateral interstitial pneumonitis is also possible. Last echocardiogram from December 2022 shows preserved LVEF. Of note, RODNEY from February 2020 showed possible left atrial appendage. He was on anticoagulation at that time with Xarelto. Of note, in June 2020, he was admitted for GI bleed. EGD showed mild gastritis with no bleeding. Colonoscopy showed a few medium-sized internal hemorrhoids in the rectum, multiple diverticula, 6mm flat polyp; no bleeding. Capsule endoscopy then showed only gastritis but no bleeding. It does not appear that he has been retried on anticoagulation since then and has been off of anticoagulation since that hospitalization. Patient denies any issues with GI bleeding or other bleeding since that episode in 2020. Date of service 02/23: Remains in atrial fibrillation. Heart rates as high as the 150s this morning, however in the low 100s to 120s after morning medications. Review of Systems Review of Systems: All systems reviewed & are unremarkable except as noted in HPI and below (HPI) Exam Const: General: no acute distress HENMT: Mouth: Yes moist mucous membranes Eyes: General: appearance normal, both eyes and all related structures Sclera: sclerae normal Resp: Effort & Inspection: normal respiratory effort Cardio: Rate: tachycardic Rhythm: abnormal rhythm irregularly irregular Skin: Other: Bruising noted on arms Neuro: Speech: normal speech Psych: Mental Status: mental status grossly normal Affect: normal affect Objective Data Vital Signs Vital Signs: Vital Signs - 24 hr 02/23/24 12:45 02/23/24 13:00 02/23/24 13:02 Temperature Pulse Rate 135 H 115 H 115 H Respiratory Rate 24 H 24 H Blood Pressure 114/78 104/64 104/64 Pulse Oximetry 93 92 Oxygen Delivery Nasal Cannula Nasal Cannula Oxygen Flow Rate 2 2 02/23/24 13:08 02/23/24 13:15 02/23/24 13:30 Temperature Pulse Rate 133 H 116 H 121 H Respiratory Rate 23 H 24 H Blood Pressure 104/64 112/79 123/72 Pulse Oximetry 93 94 Oxygen Delivery Nasal Cannula Nasal Cannula Oxygen Flow Rate 2 2 02/23/24 14:00 02/23/24 14:00 02/23/24 14:00 Temperature 36.7 C Pulse Rate 114 H 120 H 114 H Respiratory Rate 20 Blood Pressure 131/73 131/73 Pulse Oximetry 95 Oxygen Delivery Oxygen Flow Rate 02/23/24 14:25 02/23/24 14:38 02/23/24 14:38 Temperature 36.9 C Pulse Rate 114 H 129 H Respiratory Rate 16 Blood Pressure 88/64 L 96/71 L Pulse Oximetry 96 Oxygen Delivery Oxygen Flow Rate 2 02/23/24 14:45 02/23/24 15:00 02/23/24 15:15 Temperature Pulse Rate 141 H 139 H 130 H Respiratory Rate Blood Pressure 114/70 123/100 H 125/60 Pulse Oximetry Oxygen Delivery Oxygen Flow Rate 02/23/24 15:30 02/23/24 15:45 02/23/24 16:00 Temperature Pulse Rate 150 H 147 H 125 H Respiratory Rate Blood Pressure 134/86 117/71 120/61 Pulse Oximetry Oxygen Delivery Oxygen Flow Rate 02/23/24 16:00 02/23/24 16:15 02/23/24 16:30 Temperature Pulse Rate 129 H 120 H 142 H Respiratory Rate Blood Pressure 119/95 H 121/94 H Pulse Oximetry Oxygen Delivery Oxygen Flow Rate 02/23/24 16:45 02/23/24 17:00 02/23/24 17:15 Temperature Pulse Rate 125 H 135 H 149 H Respiratory Rate Blood Pressure 116/86 123/78 138/91 H Pulse Oximetry Oxygen Delivery Oxygen Flow Rate 02/23/24 17:30 02/23/24 17:45 02/23/24 18:00 Temperature Pulse Rate 133 H 136 H 124 H Respiratory Rate Blood Pressure 131/64 112/75 123/72 Pulse Oximetry Oxygen Delivery Oxygen Flow Rate 02/23/24 18:00 02/23/24 18:09 02/23/24 18:13 Temperature 36.9 C Pulse Rate 138 H 155 H 153 H Respiratory Rate 16 Blood Pressure 114/75 115/76 Pulse Oximetry 98 Oxygen Delivery Oxygen Flow Rate 02/23/24 19:05 02/23/24 19:26 02/23/24 19:48 Temperature 36.7 C 36.7 C Pulse Rate 119 H 144 H 140 H Respiratory Rate 24 H 18 Blood Pressure 116/73 115/56 L 115/56 L Pulse Oximetry 94 90 Oxygen Delivery Oxygen Flow Rate 02/23/24 19:56 02/23/24 20:00 02/23/24 20:00 Temperature Pulse Rate 140 H 140 H 131 H Respiratory Rate 18 Blood Pressure 115/56 L Pulse Oximetry 90 Oxygen Delivery Nasal Cannula Oxygen Flow Rate 1 02/23/24 20:13 02/23/24 20:16 02/23/24 20:28 Temperature Pulse Rate 106 H 104 H 102 H Respiratory Rate 24 H 22 H Blood Pressure Pulse Oximetry 96 Oxygen Delivery Nasal Cannula Oxygen Flow Rate 2 02/23/24 21:55 02/23/24 22:00 02/23/24 22:00 Temperature Pulse Rate 125 H 126 H 126 H Respiratory Rate 18 Blood Pressure 116/64 116/64 Pulse Oximetry 91 Oxygen Delivery Oxygen Flow Rate 02/23/24 23:45 02/23/24 23:48 02/23/24 23:48 Temperature 37.0 C Pulse Rate 104 H 153 H 123 H Respiratory Rate 21 H 18 19 Blood Pressure 115/92 H Pulse Oximetry 95 92 94 Oxygen Delivery CPAP Nasal Cannula Oxygen Flow Rate 3 02/24/24 00:00 02/24/24 00:00 02/24/24 01:50 Temperature Pulse Rate 128 H 128 H 123 H Respiratory Rate 22 H Blood Pressure 115/92 H Pulse Oximetry Oxygen Delivery Oxygen Flow Rate 02/24/24 02:00 02/24/24 02:00 02/24/24 02:00 Temperature Pulse Rate 121 H 121 H 121 H Respiratory Rate 20 Blood Pressure 115/74 115/74 Pulse Oximetry 98 Oxygen Delivery Oxygen Flow Rate 02/24/24 02:00 02/24/24 02:00 02/24/24 03:59 Temperature 37.1 C Pulse Rate 121 H 124 H 108 H Respiratory Rate 23 H 18 Blood Pressure 115/74 124/84 Pulse Oximetry 95 Oxygen Delivery Oxygen Flow Rate 02/24/24 04:00 02/24/24 04:00 02/24/24 04:00 Temperature Pulse Rate 123 H 135 H 123 H Respiratory Rate 18 Blood Pressure 109/68 Pulse Oximetry 93 Oxygen Delivery CPAP Oxygen Flow Rate 02/24/24 06:00 02/24/24 06:00 02/24/24 06:00 Temperature 37.1 C Pulse Rate 151 H 144 H 123 H Respiratory Rate 18 Blood Pressure 114/73 109/68 Pulse Oximetry 94 Oxygen Delivery Oxygen Flow Rate 02/24/24 07:46 02/24/24 08:25 02/24/24 08:25 Temperature 36.8 C Pulse Rate 137 H 138 H 138 H Respiratory Rate 22 H Blood Pressure 129/80 Pulse Oximetry 93 Oxygen Delivery Oxygen Flow Rate 02/24/24 08:27 02/24/24 09:01 02/24/24 09:01 Temperature Pulse Rate 134 H 125 H Respiratory Rate 24 H Blood Pressure Pulse Oximetry 94 Oxygen Delivery Nasal Cannula Oxygen Flow Rate 2 02/24/24 09:10 02/24/24 09:52 02/24/24 11:12 Temperature 37.2 C 36.9 C Pulse Rate 127 H 50 L 133 H Respiratory Rate 24 H 24 H 20 Blood Pressure 131/76 134/87 Pulse Oximetry 96 95 Oxygen Delivery Oxygen Flow Rate Intake/Output Intake/Output: Intake & Output 02/21/24 02/22/24 02/23/24 02/24/24 23:59 23:59 23:59 23:59 Intake Total 114.4 2257.4 728.8 636.3 Output Total 946 461 4127 300 Balance -345.6 1557.4 -1996.2 336.3 Meds/Results Medications: Active Medications Generic Name Dose Route Start Last Admin Trade Name Freq PRN Reason Stop Dose Admin Acetaminophen 650 mg 02/21/24 17:03 Acetaminophen 325 Mg Tablet PO Q6H PRN Mild Pain (1-3) or Fever Albuterol 2.5 mg 02/22/24 08:43 Albuterol Sulfate Neb 2.5 Mg/3 Ml Inh INHALATION Q4HRT PRN Shortness Of Breath Albuterol/Ipratropium 3 ml 02/22/24 14:00 02/24/24 09:04 Ipratropium 0.5 Mg/Albuterol Sulfate 2.5 Mg Ampul.Neb 3 Ml INHALATION 3 ml Q6HRT FAISAL Administration Alprazolam 0.5 mg 02/21/24 23:13 02/23/24 21:27 Alprazolam (*Crx) 0.5 Mg Tablet PO 0.5 mg BID PRN Administration anxiety Apixaban 2.5 mg 02/22/24 10:55 02/24/24 08:28 Apixaban 2.5 Mg Tablet PO 2.5 mg Q12HR FAISAL Administration Atorvastatin Calcium 20 mg 02/22/24 09:00 02/24/24 08:28 Atorvastatin 20 Mg Tablet PO 20 mg DAILY FAISAL Administration Clonidine HCl 0.1 mg 02/22/24 09:00 02/24/24 08:28 Clonidine Hcl 0.1 Mg Tablet PO 0.1 mg DAILY FAISAL Administration Dextrose 12.5 gm 02/21/24 17:04 Dextrose 50% 25 Gm/50 Ml Syringe IV PUSH PRN PRN Hypoglycemia Protocol Digoxin 125 mcg 02/24/24 12:29 Digoxin Inj 250 Mcg/Ml 2 Ml Amp (*Bkc) IV PUSH 02/24/24 12:30 ONCE ONE Diltiazem HCl 360 mg 02/24/24 12:30 Diltiazem Hcl Cd 180 Mg Cap.24hr PO QAM FAISAL Fluticasone/Umeclidinium/Vilanterol 1 puff 02/22/24 09:00 02/24/24 09:01 Fluticasone/Umeclidin/Vilanter 100-62.5-25 Mcg Ellipta INHALATION 1 puff DAILY FAISAL Administration Furosemide 20 mg 02/22/24 09:00 02/24/24 08:28 Furosemide 20 Mg Tablet PO 20 mg QAM FAISAL Administration Glucagon 1 mg 02/21/24 17:04 Glucagon For Inj 1 Mg Vial IM PRN PRN Hypoglycemia Protocol Glucose 15 gm 02/21/24 17:04 Glucose Oral Gel 15 Gm Of Glucse In 37.5 Gm Tube PO PRN PRN Hypoglycemia Protocol Hydralazine HCl 25 mg 02/21/24 23:20 02/24/24 11:33 Hydralazine Hcl 25 Mg Tablet PO 25 mg TID FAISAL Administration Dextrose 1,000 mls @ 100 mls/hr 02/21/24 17:04 Dextrose 5% 1,000 Ml IVPB PRN PRN Hypoglycemia Protocol Ceftriaxone Sodium 2 gm in 100 mls @ 200 mls/hr 02/23/24 19:00 02/23/24 19:39 Rocephin 2 Gm/Ns 100 Ml IVPB Infused Q24H FAISAL Infusion Azithromycin 500 mg in 250 mls @ 250 mls/hr 02/23/24 20:00 02/23/24 20:01 Zithromax IVPB 250 mls/hr Q24H FAISAL Administration Insulin Aspart 3 - 6 units 02/22/24 08:00 02/24/24 11:27 Insulin Aspart (*Bkc) 100 Units/Ml SUB-Q 3 units TIDWM FAISAL Administration Protocol Insulin Aspart 1 - 3 units 02/21/24 21:00 02/23/24 19:58 Insulin Aspart (*Bkc) 100 Units/Ml SUB-Q 1 units HS FAISAL Administration Protocol Insulin Glargine 17 units 02/22/24 21:00 02/23/24 19:57 Insulin Glargine (*Bkc) 100 Units/Ml SUB-Q 17 units HS FAISAL Administration Latanoprost 1 drop 02/21/24 23:25 02/23/24 19:07 Latanoprost 0.005% Op Soln 2.5 Ml Btl EACH EYE Not Given QPM FAISAL Metolazone 5 mg 02/22/24 09:00 02/24/24 08:28 Metolazone 5 Mg Tablet BY MOUTH 5 mg DAILY FAISAL Administration Metoprolol Succinate 200 mg 02/24/24 09:00 02/24/24 08:27 Metoprolol Succinate Ext Rel 50 Mg Tabcr PO 200 mg QAM FAISAL Administration Pantoprazole Sodium 40 mg 02/21/24 23:25 02/24/24 08:28 Pantoprazole 40 Mg Tablet PO 40 mg BID FAISAL Administration Tramadol/Acetaminophen 1 tab 02/21/24 23:13 02/23/24 21:27 Tramadol/Acetaminophen (*Crx) (Ultracet) 37.5/325 Mg Tablet PO 1 tab Q6H PRN Administration PAIN RATED 4-6 Radiology Results: ITS Impressions Chest X-Ray 02/21/24 12:21 IMPRESSION: Bilateral basal pneumonia. Cardiomegaly with cardiac decompensation and pulmonary edema is not excluded. Bilateral interstitial pneumonitis is also possible. Venous Doppler Study 02/22/24 08:54 IMPRESSION: Negative bilateral lower extremity venous US. No deep vein thrombosis. Labs Labs: Laboratory Results - last 24 hr 02/23/24 02/23/24 02/24/24 19:03 19:55 04:52 WBC 10.4 H RBC 2.99 L Hgb 10.3 L Hct 30.4 L MCV 101.7 H MCH 34.4 H MCHC 33.9 RDW 13.1 Plt Count 166 MPV 9.0 Immature Gran % (Auto) 0.3 Neut % (Auto) 80.9 H Lymph % (Auto) 5.9 L [place] % (Auto) 11.0 H Eos % (Auto) 1.3 Baso % (Auto) 0.6 Lymph # (Auto) 0.61 L [place] # (Auto) 1.1 H Eos # (Auto) 0.1 Baso # (Auto) 0.1 Abs Immat Gran (auto) 0.03 Absolute Neuts (auto) 8.4 H Absolute Nucleated RBC 0.000 Nucleated RBC % 0.0 Sodium 136 L Potassium 3.9 Chloride 98 Carbon Dioxide 31 H Anion Gap 7 BUN 36 H D Creatinine 3.42 H Estim Creat Clear Calc 18 Estimated GFR 17 L Glucose 128 H POC Capillary Glucose 178 H 214 H Calcium 8.7 02/24/24 02/24/24 07:44 10:55 WBC RBC Hgb Hct MCV MCH MCHC RDW Plt Count MPV Immature Gran % (Auto) Neut % (Auto) Lymph % (Auto) [place] % (Auto) Eos % (Auto) Baso % (Auto) Lymph # (Auto) [place] # (Auto) Eos # (Auto) Baso # (Auto) Abs Immat Gran (auto) Absolute Neuts (auto) Absolute Nucleated RBC Nucleated RBC % Sodium Potassium Chloride Carbon Dioxide Anion Gap BUN Creatinine Estim Creat Clear Calc Estimated GFR Glucose POC Capillary Glucose 175 H 210 H Calcium
[2024-02-24] MEDS: dilTIAZem HCL CD 180 MG CAP.24HR 360 MG PO (13:05)
[2024-02-24] MEDS: DIGOXIN INJ 250 MCG/ML 2 ML AMP (*BKC) 125 MCG IV PUSH (13:13)
[2024-02-24 16:23] LABS: Glucose Point of Care 195 mg/dl (65-105)
--- NOTE | 2024-02-24 17:23 | P.PNNP_ITS ---
Progress Note: A&P Assessment and Plan (1) ESRD on dialysis: Code(s): N18.6 - End stage renal disease; Z99.2 - Dependence on renal dialysis Status: Acute Assessment and Plan: * End-stage renal disease * Hypertensive renal disease and renal failure * Anemia chronic kidney disease * Secondary hyperparathyroidism * Admitted with atrial fibrillation and rapid ventricular response with shortness of breath. * Patient is being treated for pneumonia as well. Plan --dialysis tomorrow morning - discussed with patient plan, keep on a TTS schedule - atrial fibrillation:treatment plans per Cardiology. 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 Heart rate control in progress, still tachycardic - antibiotics per hospitalist team - d/w Dr Day Subjective Date/time seen: 02/24/24 17:23 Interval history: Chief complaint follow-up CKD 6/ESRD Review of Systems Review of Systems: Generally feeling better, dyspnea with exertion. Trans esophageal echocardiogram: Summary 1. Normal biventricular systolic function. 2. No significant valvular disease. 3. There is a left atrial appendage thrombus. Exam Narrative: Vital signs as noted Elderly, comfortable with breathing at rest, skin turgor normal, no pallor, no cyanosis, moist oral mucosa JVD at the cecum irregular rhythm rate, tachycardic, no gallop, no rub, equal breath sounds: II views, soft nontender abdomen, no masses, no edema lower extremities, alert oriented x3, no tremors Objective Data Vital Signs Vital Signs: Vital Signs - 24 hr 02/23/24 17:30 02/23/24 17:45 02/23/24 18:00 Temperature Pulse Rate 133 H 136 H 124 H Respiratory Rate Blood Pressure 131/64 112/75 123/72 Pulse Oximetry Oxygen Delivery Oxygen Flow Rate 02/23/24 18:00 02/23/24 18:09 02/23/24 18:13 Temperature 36.9 C Pulse Rate 138 H 155 H 153 H Respiratory Rate 16 Blood Pressure 114/75 115/76 Pulse Oximetry 98 Oxygen Delivery Oxygen Flow Rate 02/23/24 19:05 02/23/24 19:26 02/23/24 19:48 Temperature 36.7 C 36.7 C Pulse Rate 119 H 144 H 140 H Respiratory Rate 24 H 18 Blood Pressure 116/73 115/56 L 115/56 L Pulse Oximetry 94 90 Oxygen Delivery Oxygen Flow Rate 02/23/24 19:56 02/23/24 20:00 02/23/24 20:00 Temperature Pulse Rate 140 H 140 H 131 H Respiratory Rate 18 Blood Pressure 115/56 L Pulse Oximetry 90 Oxygen Delivery Nasal Cannula Oxygen Flow Rate 1 02/23/24 20:13 02/23/24 20:16 02/23/24 20:28 Temperature Pulse Rate 106 H 104 H 102 H Respiratory Rate 24 H 22 H Blood Pressure Pulse Oximetry 96 Oxygen Delivery Nasal Cannula Oxygen Flow Rate 2 02/23/24 21:55 02/23/24 22:00 02/23/24 22:00 Temperature Pulse Rate 125 H 126 H 126 H Respiratory Rate 18 Blood Pressure 116/64 116/64 Pulse Oximetry 91 Oxygen Delivery Oxygen Flow Rate 02/23/24 23:45 02/23/24 23:48 02/23/24 23:48 Temperature 37.0 C Pulse Rate 104 H 153 H 123 H Respiratory Rate 21 H 18 19 Blood Pressure 115/92 H Pulse Oximetry 95 92 94 Oxygen Delivery CPAP Nasal Cannula Oxygen Flow Rate 3 02/24/24 00:00 02/24/24 00:00 02/24/24 01:50 Temperature Pulse Rate 128 H 128 H 123 H Respiratory Rate 22 H Blood Pressure 115/92 H Pulse Oximetry Oxygen Delivery Oxygen Flow Rate 02/24/24 02:00 02/24/24 02:00 02/24/24 02:00 Temperature Pulse Rate 121 H 121 H 121 H Respiratory Rate 20 Blood Pressure 115/74 115/74 Pulse Oximetry 98 Oxygen Delivery Oxygen Flow Rate 02/24/24 02:00 02/24/24 02:00 02/24/24 03:59 Temperature 37.1 C Pulse Rate 121 H 124 H 108 H Respiratory Rate 23 H 18 Blood Pressure 115/74 124/84 Pulse Oximetry 95 Oxygen Delivery Oxygen Flow Rate 02/24/24 04:00 02/24/24 04:00 02/24/24 04:00 Temperature Pulse Rate 123 H 135 H 123 H Respiratory Rate 18 Blood Pressure 109/68 Pulse Oximetry 93 Oxygen Delivery CPAP Oxygen Flow Rate 02/24/24 06:00 02/24/24 06:00 02/24/24 06:00 Temperature 37.1 C Pulse Rate 151 H 144 H 123 H Respiratory Rate 18 Blood Pressure 114/73 109/68 Pulse Oximetry 94 Oxygen Delivery Oxygen Flow Rate 02/24/24 07:46 02/24/24 08:00 02/24/24 08:25 Temperature 36.8 C Pulse Rate 137 H 129 H 138 H Respiratory Rate 22 H Blood Pressure 129/80 Pulse Oximetry 93 Oxygen Delivery Oxygen Flow Rate 02/24/24 08:25 02/24/24 08:27 02/24/24 09:01 Temperature Pulse Rate 138 H 134 H Respiratory Rate Blood Pressure Pulse Oximetry 94 Oxygen Delivery Nasal Cannula Oxygen Flow Rate 2 02/24/24 09:01 02/24/24 09:10 02/24/24 09:52 Temperature 37.2 C Pulse Rate 125 H 127 H 50 L Respiratory Rate 24 H 24 H 24 H Blood Pressure 131/76 Pulse Oximetry 96 Oxygen Delivery Oxygen Flow Rate 02/24/24 10:00 02/24/24 11:12 02/24/24 12:00 Temperature 36.9 C Pulse Rate 146 H 133 H 131 H Respiratory Rate 20 Blood Pressure 134/87 Pulse Oximetry 95 Oxygen Delivery Oxygen Flow Rate 02/24/24 13:13 02/24/24 13:44 02/24/24 13:52 Temperature Pulse Rate 110 H 118 H 121 H Respiratory Rate 24 H 24 H Blood Pressure Pulse Oximetry Oxygen Delivery Oxygen Flow Rate 02/24/24 15:24 Temperature 37.0 C Pulse Rate 113 H Respiratory Rate 20 Blood Pressure 110/57 L Pulse Oximetry 95 Oxygen Delivery Oxygen Flow Rate Intake/Output Intake/Output: Intake & Output 02/21/24 02/22/24 02/23/24 02/24/24 23:59 23:59 23:59 23:59 Intake Total 114.4 2257.4 728.8 636.3 Output Total 140 633 1389 300 Balance -345.6 1557.4 -1996.2 336.3 Meds/Results Medications: Active Medications Generic Name Dose Route Start Last Admin Trade Name Freq PRN Reason Stop Dose Admin Acetaminophen 650 mg 02/21/24 17:03 Acetaminophen 325 Mg Tablet PO Q6H PRN Mild Pain (1-3) or Fever Albuterol 2.5 mg 02/22/24 08:43 Albuterol Sulfate Neb 2.5 Mg/3 Ml Inh INHALATION Q4HRT PRN Shortness Of Breath Albuterol/Ipratropium 3 ml 02/22/24 14:00 02/24/24 13:44 Ipratropium 0.5 Mg/Albuterol Sulfate 2.5 Mg Ampul.Neb 3 Ml INHALATION 3 ml Q6HRT FAISAL Administration Alprazolam 0.5 mg 02/21/24 23:13 02/23/24 21:27 Alprazolam (*Crx) 0.5 Mg Tablet PO 0.5 mg BID PRN Administration anxiety Apixaban 2.5 mg 02/22/24 10:55 02/24/24 08:28 Apixaban 2.5 Mg Tablet PO 2.5 mg Q12HR FAISAL Administration Atorvastatin Calcium 20 mg 02/22/24 09:00 02/24/24 08:28 Atorvastatin 20 Mg Tablet PO 20 mg DAILY FAISAL Administration Clonidine HCl 0.1 mg 02/22/24 09:00 02/24/24 08:28 Clonidine Hcl 0.1 Mg Tablet PO 0.1 mg DAILY FAISAL Administration Dextrose 12.5 gm 02/21/24 17:04 Dextrose 50% 25 Gm/50 Ml Syringe IV PUSH PRN PRN Hypoglycemia Protocol Diltiazem HCl 360 mg 02/24/24 12:30 02/24/24 13:05 Diltiazem Hcl Cd 180 Mg Cap.24hr PO 360 mg QAM FAISAL Administration Fluticasone/Umeclidinium/Vilanterol 1 puff 02/22/24 09:00 02/24/24 09:01 Fluticasone/Umeclidin/Vilanter 100-62.5-25 Mcg Ellipta INHALATION 1 puff DAILY FAISAL Administration Furosemide 20 mg 02/22/24 09:00 02/24/24 08:28 Furosemide 20 Mg Tablet PO 20 mg QAM FAISAL Administration Glucagon 1 mg 02/21/24 17:04 Glucagon For Inj 1 Mg Vial IM PRN PRN Hypoglycemia Protocol Glucose 15 gm 02/21/24 17:04 Glucose Oral Gel 15 Gm Of Glucse In 37.5 Gm Tube PO PRN PRN Hypoglycemia Protocol Hydralazine HCl 25 mg 02/21/24 23:20 02/24/24 11:33 Hydralazine Hcl 25 Mg Tablet PO 25 mg TID FAISAL Administration Dextrose 1,000 mls @ 100 mls/hr 02/21/24 17:04 Dextrose 5% 1,000 Ml IVPB PRN PRN Hypoglycemia Protocol Ceftriaxone Sodium 2 gm in 100 mls @ 200 mls/hr 02/23/24 19:00 02/23/24 19:39 Rocephin 2 Gm/Ns 100 Ml IVPB Infused Q24H FAISAL Infusion Azithromycin 500 mg in 250 mls @ 250 mls/hr 02/23/24 20:00 02/23/24 20:01 Zithromax IVPB 250 mls/hr Q24H FAISAL Administration Insulin Aspart 3 - 6 units 02/22/24 08:00 02/24/24 11:27 Insulin Aspart (*Bkc) 100 Units/Ml SUB-Q 3 units TIDWM FAISAL Administration Protocol Insulin Aspart 1 - 3 units 02/21/24 21:00 02/23/24 19:58 Insulin Aspart (*Bkc) 100 Units/Ml SUB-Q 1 units HS FAISAL Administration Protocol Insulin Glargine 17 units 02/22/24 21:00 02/23/24 19:57 Insulin Glargine (*Bkc) 100 Units/Ml SUB-Q 17 units HS FAISAL Administration Latanoprost 1 drop 02/21/24 23:25 02/23/24 19:07 Latanoprost 0.005% Op Soln 2.5 Ml Btl EACH EYE Not Given QPM FAISAL Metolazone 5 mg 02/22/24 09:00 02/24/24 08:28 Metolazone 5 Mg Tablet BY MOUTH 5 mg DAILY FAISAL Administration Metoprolol Succinate 200 mg 02/24/24 09:00 02/24/24 08:27 Metoprolol Succinate Ext Rel 50 Mg Tabcr PO 200 mg QAM FAISAL Administration Pantoprazole Sodium 40 mg 02/21/24 23:25 02/24/24 08:28 Pantoprazole 40 Mg Tablet PO 40 mg BID FAISAL Administration Tramadol/Acetaminophen 1 tab 02/21/24 23:13 02/23/24 21:27 Tramadol/Acetaminophen (*Crx) (Ultracet) 37.5/325 Mg Tablet PO 1 tab Q6H PRN Administration PAIN RATED 4-6 Radiology Results: ITS Impressions Chest X-Ray 02/21/24 12:21 IMPRESSION: Bilateral basal pneumonia. Cardiomegaly with cardiac decompensation and pulmonary edema is not excluded. Bilateral interstitial pneumonitis is also possible. Venous Doppler Study 02/22/24 08:54 IMPRESSION: Negative bilateral lower extremity venous US. No deep vein thrombosis. Labs Labs: Laboratory Results - last 24 hr 02/23/24 02/23/2402/23/25 19:03 19:55 04:52 WBC 10.4 H RBC 2.99 L Hgb 10.3 L Hct 30.4 L MCV 101.7 H MCH 34.4 H MCHC 33.9 RDW 13.1 Plt Count 166 MPV 9.0 Immature Gran % (Auto) 0.3 Neut % (Auto) 80.9 H Lymph % (Auto) 5.9 L Atkinson % (Auto) 11.0 H Eos % (Auto) 1.3 Baso % (Auto) 0.6 Lymph # (Auto) 0.61 L Atkinson # (Auto) 1.1 H Eos # (Auto) 0.1 Baso # (Auto) 0.1 Abs Immat Gran (auto) 0.03 Absolute Neuts (auto) 8.4 H Absolute Nucleated RBC 0.000 Nucleated RBC % 0.0 Sodium 136 L Potassium 3.9 Chloride 98 Carbon Dioxide 31 H Anion Gap 7 BUN 36 H D Creatinine 3.42 H Estim Creat Clear Calc 18 Estimated GFR 17 L Glucose 128 H POC Capillary Glucose 178 H 214 H Calcium 8.7 02/24/24 02/24/24 02/24/24 07:44 10:55 16:11 WBC RBC Hgb Hct MCV MCH MCHC RDW Plt Count MPV Immature Gran % (Auto) Neut % (Auto) Lymph % (Auto) Atkinson % (Auto) Eos % (Auto) Baso % (Auto) Lymph # (Auto) Atkinson # (Auto) Eos # (Auto) Baso # (Auto) Abs Immat Gran (auto) Absolute Neuts (auto) Absolute Nucleated RBC Nucleated RBC % Sodium Potassium Chloride Carbon Dioxide Anion Gap BUN Creatinine Estim Creat Clear Calc Estimated GFR Glucose POC Capillary Glucose 175 H 210 H 195 H Calcium
[2024-02-24] MEDS: cefTRIAXone 2 GM/NS 100 ML 2 GM/100 ML BAG IVPB (17:27)
[2024-02-24 20:02] LABS: Glucose Point of Care 252 mg/dl (65-105)
[2024-02-24] MEDS: traMADol/ACETAMINOPHEN (*CRX) (ULTRACET) 37.5/325 MG TABLET 1 TAB PO (21:03)
[2024-02-24] MEDS: AZITHROMYCIN 500 MG/NS 250 ML 500 MG/250 ML BAG 250 MG IVPB (21:03)
[2024-02-24] MEDS: ALPRAZolam (*CRX) 0.5 MG TABLET PO (21:03)
[2024-02-24] MEDS: LATANOPROST 0.005% OP SOLN 2.5 ML BTL 1 DROP EACH EYE (21:04)
[2024-02-24] MEDS: INSULIN GLARGINE (*BKC) 100 UNITS/ML 17 UNITS SUB-Q (21:06)
[2024-02-25] VITALS (44 sets, daily range): BP systolic 120–161; BP diastolic 62–109; PULSE 69–150; RESP 16–23; TEMP 36.4–37.2; O2SAT 90–97
[2024-02-25] MEDS: IPRATROPIUM 0.5 MG/ALBUTEROL SULFATE 2.5 MG AMPUL.NEB 3 ML INHALATION ×2 (01:53→20:25)
[2024-02-25 04:58] LABS: Basophils Absolute Auto 0.1 K/mm3 (0.0-0.1); Basophils Percent Auto 0.7 % (0.2-1.2); Eosinophils Absolute Auto 0.3 K/mm3 (0-0.3); Eosinophils Percent Auto 2.3 % (0-4.4); Hematocrit 29.5 % (42.0-52.0); Hemoglobin 9.8 g/dL (14.0-18.0); Immature Granulocyte Absolute 0.02 K/mm3 (0.00-0.031); Immature Granulocyte Percent A 0.2 % (0-0.5); Lymphocytes Absolute Auto 0.69 K/mm3 (0.9-3.2); Lymphocytes Percent Auto 6.4 % (18.3-44.2); Mean Corpuscular HGB Conc 33.2 g/dl (32-36); Mean Corpuscular Hemoglobin 33.8 pg (26-34); Mean Corpuscular Volume 101.7 fl (80-100); Mean Platelet Volume 9.3 fl (7.4-10.4); Monocytes Absolute Auto 1.3 K/mm3 (0.1-0.6); Monocytes Percent Auto 11.8 % (2.6-8.5); Neutrophils Absolute Auto 8.4 K/mm3 (1.3-6.7); Neutrophils Percent Auto 78.6 % (45.5-73.1); Platelet Count Result 176 k/mm3 (150-375); Red Cell Distribution Width 12.9 % (11.5-14.5); White Blood Count 10.7 K/mm3 (4.5-10.0)
[2024-02-25] MEDS: traMADol/ACETAMINOPHEN (*CRX) (ULTRACET) 37.5/325 MG TABLET 1 TAB PO ×2 (05:15→20:39)
[2024-02-25 05:19] LABS: Anion Gap 10 mmol/L (4-12); Blood Urea Nitrogen 52 mg/dL (9-20); Calcium 8.4 mg/dL (8.4-10.2); Carbon Dioxide 28 mmol/L (22-30); Chloride 95 mmol/L (98-107); Estimated CRCL calculation 16 ml/min; Estimated Glomerular Filt Rate 14; Glucose 116 mg/dL (65-110); Potassium 3.9 mmol/L (3.4-5.0); Sodium 133 mmol/L (137-145)
[2024-02-25 07:57] LABS: Glucose Point of Care 137 mg/dl (65-105)
--- NOTE | 2024-02-25 08:57 | P.PNCA_ITS ---
Progress Note: A&P Assessment and Plan (1) Atrial fibrillation with rapid ventricular response: Code(s): I48.91 - Unspecified atrial fibrillation Status: Acute Assessment and Plan: AFib with RVR Left atrial appendage thrombus Hypertension controlled Chronic diastolic heart failure Incision is no masses Plan Dizzy clonidine and increase metoprolol to 200 mg b.i.d. Continue diltiazem 360 mg daily If rate continue to be uncontrolled will consider adding digoxin Continue oral anticoagulation Eliquis 5 mg b.i.d. (2) Thrombus of left atrial appendage: Code(s): I51.3 - Intracardiac thrombosis, not elsewhere classified Status: Acute Assessment and Plan: (3) Hypertension: Code(s): I10 - Essential (primary) hypertension Status: Acute Assessment and Plan: (4) ESRD on dialysis: Code(s): N18.6 - End stage renal disease; Z99.2 - Dependence on renal dialysis Status: Acute Assessment and Plan: Nephrology consulted (5) Hyperlipidemia: Code(s): E78.5 - Hyperlipidemia, unspecified Status: Acute Assessment and Plan: Continue Atorvastatin. 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 Subjective Date/time seen: 02/25/24 08:57 Interval history: no acute events Tele: AF RVR Review of Systems Review of Systems: All systems reviewed & are unremarkable except as noted in HPI and below Exam Const: General: no acute distress HENMT: Mouth: Yes moist mucous membranes Eyes: General: appearance normal, both eyes and all related structures Sclera: sclerae normal Resp: Effort & Inspection: normal respiratory effort Cardio: Rate: tachycardic Rhythm: abnormal rhythm irregularly irregular Skin: Other: Bruising noted on arms Neuro: Speech: normal speech Psych: Mental Status: mental status grossly normal Affect: normal affect Objective Data Vital Signs Vital Signs: Vital Signs - 24 hr 02/24/24 09:01 02/24/24 09:01 02/24/24 09:10 Temperature Pulse Rate 125 H 127 H Respiratory Rate 24 H 24 H Blood Pressure Pulse Oximetry 94 Oxygen Delivery Nasal Cannula Oxygen Flow Rate 2 Fraction of Inspired Oxygen 02/24/24 09:52 02/24/24 10:00 02/24/24 11:12 Temperature 37.2 C 36.9 C Pulse Rate 50 L 146 H 133 H Respiratory Rate 24 H 20 Blood Pressure 131/76 134/87 Pulse Oximetry 96 95 Oxygen Delivery Oxygen Flow Rate Fraction of Inspired Oxygen 02/24/24 12:00 02/24/24 13:13 02/24/24 13:44 Temperature Pulse Rate 131 H 110 H 118 H Respiratory Rate 24 H Blood Pressure Pulse Oximetry Oxygen Delivery Oxygen Flow Rate Fraction of Inspired Oxygen 02/24/24 13:52 02/24/24 15:24 02/24/24 16:00 Temperature 37.0 C Pulse Rate 121 H 113 H 118 H Respiratory Rate 24 H 20 Blood Pressure 110/57 L Pulse Oximetry 95 Oxygen Delivery Oxygen Flow Rate Fraction of Inspired Oxygen 02/24/24 18:00 02/24/24 19:54 02/24/24 20:00 Temperature 37.1 C Pulse Rate 96 92 115 H Respiratory Rate 20 Blood Pressure 157/70 H Pulse Oximetry 93 Oxygen Delivery Oxygen Flow Rate Fraction of Inspired Oxygen 02/24/24 20:00 02/24/24 20:04 02/24/24 20:04 Temperature Pulse Rate 105 H Respiratory Rate 21 H Blood Pressure Pulse Oximetry 97 93 Oxygen Delivery Nasal Cannula Nasal Cannula Oxygen Flow Rate 1 1 Fraction of Inspired Oxygen 02/24/24 20:12 02/24/24 22:00 02/24/24 22:15 Temperature Pulse Rate 114 H 108 H 64 Respiratory Rate 21 H 21 H Blood Pressure Pulse Oximetry 93 Oxygen Delivery CPAP Oxygen Flow Rate Fraction of Inspired Oxygen 02/25/24 00:00 02/25/24 00:00 02/25/24 00:13 Temperature 36.6 C Pulse Rate 105 H 101 H Respiratory Rate 20 Blood Pressure 144/91 H Pulse Oximetry 97 97 Oxygen Delivery CPAP Oxygen Flow Rate Fraction of Inspired Oxygen 02/25/24 01:51 02/25/24 02:00 02/25/24 02:00 Temperature Pulse Rate 89 89 104 H Respiratory Rate 23 H 23 H Blood Pressure Pulse Oximetry 95 Oxygen Delivery CPAP Oxygen Flow Rate Fraction of Inspired Oxygen 02/25/24 02:02 02/25/24 03:21 02/25/24 04:00 Temperature 37.2 C Pulse Rate 100 107 H Respiratory Rate 22 H 20 Blood Pressure 129/68 Pulse Oximetry 90 96 Oxygen Delivery Nasal Cannula Oxygen Flow Rate 1 Fraction of Inspired Oxygen 02/25/24 04:00 02/25/24 06:00 02/25/24 08:02 Temperature 37.2 C Pulse Rate 108 H 138 H 130 H Respiratory Rate 20 Blood Pressure 128/70 Pulse Oximetry 95 Oxygen Delivery Oxygen Flow Rate Fraction of Inspired Oxygen Intake/Output Intake/Output: Intake & Output 02/22/24 02/23/24 02/24/24 02/25/24 23:59 23:59 23:59 23:59 Intake Total 2257.4 728.8 1776.3 1240 Output Total 700 2725 400 200 Balance 1557.4 -1996.2 1376.3 1040 Meds/Results Medications: Active Medications Generic Name Dose Route Start Last Admin Trade Name Freq PRN Reason Stop Dose Admin Acetaminophen 650 mg 02/21/24 17:03 Acetaminophen 325 Mg Tablet PO Q6H PRN Mild Pain (1-3) or Fever Albuterol 2.5 mg 02/22/24 08:43 Albuterol Sulfate Neb 2.5 Mg/3 Ml Inh INHALATION Q4HRT PRN Shortness Of Breath Albuterol/Ipratropium 3 ml 02/22/24 14:00 02/25/24 01:53 Ipratropium 0.5 Mg/Albuterol Sulfate 2.5 Mg Ampul.Neb 3 Ml INHALATION 3 ml Q6HRT FAISAL Administration Alprazolam 0.5 mg 02/21/24 23:13 02/24/24 21:03 Alprazolam (*Crx) 0.5 Mg Tablet PO 0.5 mg BID PRN Administration anxiety Apixaban 2.5 mg 02/22/24 10:55 02/24/24 21:03 Apixaban 2.5 Mg Tablet PO 2.5 mg Q12HR FAISAL Administration Atorvastatin Calcium 20 mg 02/22/24 09:00 02/24/24 08:28 Atorvastatin 20 Mg Tablet PO 20 mg DAILY FAISAL Administration Clonidine HCl 0.1 mg 02/22/24 09:00 02/24/24 08:28 Clonidine Hcl 0.1 Mg Tablet PO 0.1 mg DAILY FAISAL Administration Dextrose 12.5 gm 02/21/24 17:04 Dextrose 50% 25 Gm/50 Ml Syringe IV PUSH PRN PRN Hypoglycemia Protocol Diltiazem HCl 360 mg 02/24/24 12:30 02/24/24 13:05 Diltiazem Hcl Cd 180 Mg Cap.24hr PO 360 mg QAM FAISAL Administration Fluticasone/Umeclidinium/Vilanterol 1 puff 02/22/24 09:00 02/24/24 09:01 Fluticasone/Umeclidin/Vilanter 100-62.5-25 Mcg Ellipta INHALATION 1 puff DAILY FAISAL Administration Furosemide 20 mg 02/22/24 09:00 02/24/24 08:28 Furosemide 20 Mg Tablet PO 20 mg QAM FAISAL Administration Glucagon 1 mg 02/21/24 17:04 Glucagon For Inj 1 Mg Vial IM PRN PRN Hypoglycemia Protocol Glucose 15 gm 02/21/24 17:04 Glucose Oral Gel 15 Gm Of Glucse In 37.5 Gm Tube PO PRN PRN Hypoglycemia Protocol Hydralazine HCl 25 mg 02/21/24 23:20 02/24/24 17:28 Hydralazine Hcl 25 Mg Tablet PO 25 mg TID FAISAL Administration Dextrose 1,000 mls @ 100 mls/hr 02/21/24 17:04 Dextrose 5% 1,000 Ml IVPB PRN PRN Hypoglycemia Protocol Ceftriaxone Sodium 2 gm in 100 mls @ 200 mls/hr 02/23/24 19:00 02/24/24 23:00 Rocephin 2 Gm/Ns 100 Ml IVPB Infused Q24H FAISAL Infusion Azithromycin 500 mg in 250 mls @ 250 mls/hr 02/23/24 20:00 02/24/24 22:03 Zithromax IVPB Infused Q24H FAISAL Infusion Insulin Aspart 3 - 6 units 02/22/24 08:00 02/24/24 17:29 Insulin Aspart (*Bkc) 100 Units/Ml SUB-Q Not Given TIDWM FAISAL Protocol Insulin Aspart 1 - 3 units 02/21/24 21:00 02/24/24 21:05 Insulin Aspart (*Bkc) 100 Units/Ml SUB-Q 2 units HS FAISAL Administration Protocol Insulin Glargine 17 units 02/22/24 21:00 02/24/24 21:06 Insulin Glargine (*Bkc) 100 Units/Ml SUB-Q 17 units HS FAISAL Administration Latanoprost 1 drop 02/21/24 23:25 02/24/24 21:04 Latanoprost 0.005% Op Soln 2.5 Ml Btl EACH EYE 1 drop QPM FAISAL Administration Metolazone 5 mg 02/22/24 09:00 02/24/24 08:28 Metolazone 5 Mg Tablet BY MOUTH 5 mg DAILY FAISAL Administration Metoprolol Succinate 200 mg 02/24/24 09:00 02/24/24 08:27 Metoprolol Succinate Ext Rel 50 Mg Tabcr PO 200 mg QAM FAISAL Administration Pantoprazole Sodium 40 mg 02/21/24 23:25 02/24/24 17:28 Pantoprazole 40 Mg Tablet PO 40 mg BID FAISAL Administration Tramadol/Acetaminophen 1 tab 02/21/24 23:13 02/25/24 05:15 Tramadol/Acetaminophen (*Crx) (Ultracet) 37.5/325 Mg Tablet PO 1 tab Q6H PRN Administration PAIN RATED 4-6 Radiology Results: ITS Impressions Chest X-Ray 02/21/24 12:21 IMPRESSION: Bilateral basal pneumonia. Cardiomegaly with cardiac decompensation and pulmonary edema is not excluded. Bilateral interstitial pneumonitis is also possible. Venous Doppler Study 02/22/24 08:54 IMPRESSION: Negative bilateral lower extremity venous US. No deep vein thrombosis. Labs Labs: Laboratory Results - last 24 hr 02/24/24 02/24/24 02/24/24 10:55 16:11 20:00 WBC RBC Hgb Hct MCV MCH MCHC RDW Plt Count MPV Immature Gran % (Auto) Neut % (Auto) Lymph % (Auto) Stevens % (Auto) Eos % (Auto) Baso % (Auto) Lymph # (Auto) Stevens # (Auto) Eos # (Auto) Baso # (Auto) Abs Immat Gran (auto) Absolute Neuts (auto) Absolute Nucleated RBC Nucleated RBC % Sodium Potassium Chloride Carbon Dioxide Anion Gap BUN Creatinine Estim Creat Clear Calc Estimated GFR Glucose POC Capillary Glucose 210 H 195 H 252 H Calcium 02/25/24 02/25/24 04:31 07:32 WBC 10.7 H RBC 2.90 L Hgb 9.8 L Hct 29.5 L MCV 101.7 H MCH 33.8 MCHC 33.2 RDW 12.9 Plt Count 176 MPV 9.3 Immature Gran % (Auto) 0.2 Neut % (Auto) 78.6 H Lymph % (Auto) 6.4 L Stevens % (Auto) 11.8 H Eos % (Auto) 2.3 Baso % (Auto) 0.7 Lymph # (Auto) 0.69 L Stevens # (Auto) 1.3 H Eos # (Auto) 0.3 Baso # (Auto) 0.1 Abs Immat Gran (auto) 0.02 Absolute Neuts (auto) 8.4 H Absolute Nucleated RBC 0.000 Nucleated RBC % 0.0 Sodium 133 L Potassium 3.9 Chloride 95 L Carbon Dioxide 28 Anion Gap 10 BUN 52 H D Creatinine 4.03 H Estim Creat Clear Calc 16 Estimated GFR 14 L Glucose 116 H POC Capillary Glucose 137 H Calcium 8.4
[2024-02-25] MEDS: FLUTICASONE/UMECLIDIN/VILANTER 100-62.5-25 MCG ELLIPTA 1 PUFF INHALATION (09:04)
[2024-02-25] MEDS: ATORVASTATIN 20 MG TABLET PO (09:12)
[2024-02-25] MEDS: APIXABAN 2.5 MG TABLET PO ×2 (09:12→20:39)
[2024-02-25] MEDS: hydrALAZINE HCL 25 MG TABLET PO ×2 (09:13→17:00)
[2024-02-25] MEDS: metOLazone 5 MG TABLET BY MOUTH (09:13)
[2024-02-25] MEDS: dilTIAZem HCL CD 180 MG CAP.24HR 360 MG PO (09:13)
[2024-02-25] MEDS: PANTOPRAZOLE 40 MG TABLET PO ×2 (09:13→18:58)
[2024-02-25] MEDS: FUROSEMIDE 20 MG TABLET PO (09:13)
--- NOTE | 2024-02-25 10:36 | PM.IMPN ---
Progress Note: A&P Assessment and Plan (1) Atrial fibrillation with rapid ventricular response: Code(s): I48.91 - Unspecified atrial fibrillation Status: Acute (2) Hypomagnesemia: Code(s): E83.42 - Hypomagnesemia Status: Acute (3) Hypertension: Code(s): I10 - Essential (primary) hypertension Status: Acute (4) End-stage renal disease on hemodialysis: Code(s): N18.6 - End stage renal disease; Z99.2 - Dependence on renal dialysis Status: Acute (5) Chronic obstructive pulmonary disease: Qualifiers: COPD type: unspecified COPD Qualified Code(s): J44.9 - Chronic obstructive pulmonary disease, unspecified Code(s): J44.9 - Chronic obstructive pulmonary disease, unspecified Status: Acute (6) Obstructive sleep apnea: Code(s): G47.33 - Obstructive sleep apnea (adult) (pediatric) Status: Acute (7) Insulin dependent diabetes mellitus: Status: Acute Plan This is a very pleasant 83-year-old male with paroxysmal atrial fibrillation no longer on chronic anticoagulation due to GI bleeding, duodenal ulcers, 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 proBNP 21,200, troponin 0.019. Chest x-ray showed bibasilar pneumonia and cardiomegaly with probable pulmonary edema. 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 Chest x-ray shows pulmonary edema, He was started on a diltiazem drip in the ED with some improvement in his rates. He is only on 25 mg of metoprolol succinate today which can be titrated up for better rate control. For now we will increase that to 50 mg daily and decrease clonidine to 0.1 mg daily and adjust as needed. not on anticoagulation due to history of bleeding ulcers and gastritis Appreciate cardiology consultation, can't perform electrical cardioversion Increase metoprolol to 200 mg b.i.d. p.o., Cardizem 360 mg daily per cardio left atrial appendage thrombus on RODNEY in 2020 Patient may need anticoagulation Follow-up cardiology recommendation End-stage renal disease on hemodialysis Consult handbag parts cutter for dialysis Chest x-ray shows pulmonary congestion Management per handbag parts cutter Acute on chronic diastolic heart failure echo: 1. Technically difficult study with limited views. 2. Left ventricular chamber dimension is normal. 3. Left ventricular systolic function is normal, estimated at 65-70%. 4. There is mildly increased left ventricular wall thickness. 5. Left atrial chamber dimension is moderately enlarged. 6. There is mild tricuspid valve regurgitation. Patient's shortness breath, x-ray shows pulmonary congestion Received IV furosemide May need more dialysis COPD exacerbation Patient leukocytosis 13,700 upon arrival in the ED, X-ray shows bilateral basal pneumonia Start DuoNeb scheduled, albuterol nebulizer p.r.n. Follow-up VBG on azithromycin ceftriaxone IV Type 2 diabetes Continue basal insulin and initiate sliding scale insulin, Accu-Cheks, and hypoglycemic protocol. His home medications will be reviewed and resumed as appropriate. Chronic anemia Stable Possible due to end-stage renal disease Subjective Date/time seen: 02/25/24 10:36 Interval history: Patient 2 L oxygen, still has AFib RVR. Patient denies palpitation at rest. Patient denies chest pain abdomen pain nausea vomiting diarrhea Increase metoprolol to 200 mg b.i.d. p.o., Cardizem 360 mg daily per naval surface fire support planner Exam Narrative: GENERAL: Ill-appearing, in no acute distress. Well-nourished. - EYES: EOMI. Anicteric. - HENT: Moist mucous membranes. - LUNGS: Coarse breath sound bilaterally, tachypnea . - CARDIOVASCULAR: Irregular irregular rhythm, tachycardia. No murmur. No JVD. - ABDOMEN: Soft, non-tender and non-distended. No palpable masses. - EXTREMITIES: No edema. Peripheral pulses 2+. Non-tender. - NEUROLOGIC: No focal neurological deficits. CN II-XII grossly intact. General weakness - PSYCHIATRIC: Awake, Alert and oriented x 3. Appropriate mood and affect. - SKIN: No rashes or lesions. Warm. - LYMPH: No cervical lymphadenopathy. Objective Data Vital Signs Vital Signs: Vital Signs - 24 hr 02/24/24 11:12 02/24/24 12:00 02/24/24 13:13 Temperature 98.4 F Pulse Rate 133 H 131 H 110 H Respiratory Rate 20 Blood Pressure 134/87 Pulse Oximetry 95 Oxygen Delivery Oxygen Flow Rate Fraction of Inspired Oxygen 02/24/24 13:44 02/24/24 13:52 02/24/24 15:24 Temperature 98.6 F Pulse Rate 118 H 121 H 113 H Respiratory Rate 24 H 24 H 20 Blood Pressure 110/57 L Pulse Oximetry 95 Oxygen Delivery Oxygen Flow Rate Fraction of Inspired Oxygen 02/24/24 16:00 02/24/24 18:00 02/24/24 19:54 Temperature 98.7 F Pulse Rate 118 H 96 92 Respiratory Rate 20 Blood Pressure 157/70 H Pulse Oximetry 93 Oxygen Delivery Oxygen Flow Rate Fraction of Inspired Oxygen 02/24/24 20:00 02/24/24 20:00 02/24/24 20:04 Temperature Pulse Rate 115 H Respiratory Rate Blood Pressure Pulse Oximetry 97 93 Oxygen Delivery Nasal Cannula Nasal Cannula Oxygen Flow Rate 1 1 Fraction of Inspired Oxygen 24 02/24/24 20:04 02/24/24 20:12 02/24/24 22:00 Temperature Pulse Rate 105 H 114 H 108 H Respiratory Rate 21 H 21 H Blood Pressure Pulse Oximetry Oxygen Delivery Oxygen Flow Rate Fraction of Inspired Oxygen 02/24/24 22:15 02/25/24 00:00 02/25/24 00:00 Temperature Pulse Rate 64 105 H Respiratory Rate 21 H Blood Pressure Pulse Oximetry 93 97 Oxygen Delivery CPAP CPAP Oxygen Flow Rate Fraction of Inspired Oxygen 02/25/24 00:13 02/25/24 01:51 02/25/24 02:00 Temperature 97.9 F Pulse Rate 101 H 89 89 Respiratory Rate 20 23 H 23 H Blood Pressure 144/91 H Pulse Oximetry 97 95 Oxygen Delivery CPAP Oxygen Flow Rate Fraction of Inspired Oxygen 02/25/24 02:00 02/25/24 02:02 02/25/24 03:21 Temperature 98.9 F Pulse Rate 104 H 100 107 H Respiratory Rate 22 H 20 Blood Pressure 129/68 Pulse Oximetry 90 Oxygen Delivery Oxygen Flow Rate Fraction of Inspired Oxygen 02/25/24 04:00 02/25/24 04:00 02/25/24 06:00 Temperature Pulse Rate 108 H 138 H Respiratory Rate Blood Pressure Pulse Oximetry 96 Oxygen Delivery Nasal Cannula Oxygen Flow Rate 1 Fraction of Inspired Oxygen 02/25/24 08:00 02/25/24 08:00 02/25/24 08:02 Temperature 98.9 F Pulse Rate 129 H 124 H 130 H Respiratory Rate 20 20 Blood Pressure 128/70 Pulse Oximetry 91 95 Oxygen Delivery Nasal Cannula Oxygen Flow Rate 1 Fraction of Inspired Oxygen 24 02/25/24 08:57 02/25/24 09:04 02/25/24 10:00 Temperature Pulse Rate 124 H 124 H Respiratory Rate Blood Pressure Pulse Oximetry 91 Oxygen Delivery Nasal Cannula Oxygen Flow Rate 1 Fraction of Inspired Oxygen Intake/Output Intake/Output: Intake & Output 02/22/24 02/23/24 02/24/24 02/25/24 23:59 23:59 23:59 23:59 Intake Total 2257.4 728.8 1776.3 1240 Output Total 700 2725 400 200 Balance 1557.4 -1996.2 1376.3 1040 Meds/Results Medications: Active Medications Generic Name Dose Route Start Last Admin Trade Name Freq PRN Reason Stop Dose Admin Acetaminophen 650 mg 02/21/24 17:03 Acetaminophen 325 Mg Tablet PO Q6H PRN Mild Pain (1-3) or Fever Albuterol 2.5 mg 02/22/24 08:43 Albuterol Sulfate Neb 2.5 Mg/3 Ml Inh INHALATION Q4HRT PRN Shortness Of Breath Albuterol/Ipratropium 3 ml 02/22/24 14:00 02/25/24 09:04 Ipratropium 0.5 Mg/Albuterol Sulfate 2.5 Mg Ampul.Neb 3 Ml INHALATION Not Given Q6HRT COUNTS INCLUDE 234 BEDS AT [facility] Alprazolam 0.5 mg 02/21/24 23:13 02/24/24 21:03 Alprazolam (*Crx) 0.5 Mg Tablet PO 0.5 mg BID PRN Administration anxiety Apixaban 2.5 mg 02/22/24 10:55 02/25/24 09:12 Apixaban 2.5 Mg Tablet PO 2.5 mg Q12HR FAISAL Administration Atorvastatin Calcium 20 mg 02/22/24 09:00 02/25/24 09:12 Atorvastatin 20 Mg Tablet PO 20 mg DAILY FAISAL Administration Dextrose 12.5 gm 02/21/24 17:04 Dextrose 50% 25 Gm/50 Ml Syringe IV PUSH PRN PRN Hypoglycemia Protocol Diltiazem HCl 360 mg 02/24/24 12:30 02/25/24 09:13 Diltiazem Hcl Cd 180 Mg Cap.24hr PO 360 mg QAM FAISAL Administration Fluticasone/Umeclidinium/Vilanterol 1 puff 02/22/24 09:00 02/25/24 09:04 Fluticasone/Umeclidin/Vilanter 100-62.5-25 Mcg Ellipta INHALATION 1 puff DAILY FAISAL Administration Furosemide 20 mg 02/22/24 09:00 02/25/24 09:13 Furosemide 20 Mg Tablet PO 20 mg QAM FAISAL Administration Glucagon 1 mg 02/21/24 17:04 Glucagon For Inj 1 Mg Vial IM PRN PRN Hypoglycemia Protocol Glucose 15 gm 02/21/24 17:04 Glucose Oral Gel 15 Gm Of Glucse In 37.5 Gm Tube PO PRN PRN Hypoglycemia Protocol Hydralazine HCl 25 mg 02/21/24 23:20 02/25/24 09:13 Hydralazine Hcl 25 Mg Tablet PO 25 mg TID FAISAL Administration Dextrose 1,000 mls @ 100 mls/hr 02/21/24 17:04 Dextrose 5% 1,000 Ml IVPB PRN PRN Hypoglycemia Protocol Ceftriaxone Sodium 2 gm in 100 mls @ 200 mls/hr 02/23/24 19:00 02/24/24 23:00 Rocephin 2 Gm/Ns 100 Ml IVPB Infused Q24H FAISAL Infusion Azithromycin 500 mg in 250 mls @ 250 mls/hr 02/23/24 20:00 02/24/24 22:03 Zithromax IVPB Infused Q24H FAISAL Infusion Insulin Aspart 3 - 6 units 02/22/24 08:00 02/24/24 17:29 Insulin Aspart (*Bkc) 100 Units/Ml SUB-Q Not Given TIDWM FAISAL Protocol Insulin Aspart 1 - 3 units 02/21/24 21:00 02/24/24 21:05 Insulin Aspart (*Bkc) 100 Units/Ml SUB-Q 2 units HS FAISAL Administration Protocol Insulin Glargine 17 units 02/22/24 21:00 02/24/24 21:06 Insulin Glargine (*Bkc) 100 Units/Ml SUB-Q 17 units HS FAISAL Administration Latanoprost 1 drop 02/21/24 23:25 02/24/24 21:04 Latanoprost 0.005% Op Soln 2.5 Ml Btl EACH EYE 1 drop QPM FAISAL Administration Metolazone 5 mg 02/22/24 09:00 02/25/24 09:13 Metolazone 5 Mg Tablet BY MOUTH 5 mg DAILY FAISAL Administration Metoprolol Succinate 200 mg 02/25/24 17:00 Metoprolol Succinate Ext Rel 50 Mg Tabcr PO BID FAISAL Pantoprazole Sodium 40 mg 02/21/24 23:25 02/25/24 09:13 Pantoprazole 40 Mg Tablet PO 40 mg BID FAISAL Administration Tramadol/Acetaminophen 1 tab 02/21/24 23:13 02/25/24 05:15 Tramadol/Acetaminophen (*Crx) (Ultracet) 37.5/325 Mg Tablet PO 1 tab Q6H PRN Administration PAIN RATED 4-6 Radiology Results: ITS Impressions Chest X-Ray 02/21/24 12:21 IMPRESSION: Bilateral basal pneumonia. Cardiomegaly with cardiac decompensation and pulmonary edema is not excluded. Bilateral interstitial pneumonitis is also possible. Venous Doppler Study 02/22/24 08:54 IMPRESSION: Negative bilateral lower extremity venous US. No deep vein thrombosis. Labs Labs: Laboratory Results - last 24 hr 02/24/24 02/24/24 02/24/24 10:55 16:11 20:00 WBC RBC Hgb Hct MCV MCH MCHC RDW Plt Count MPV Immature Gran % (Auto) Neut % (Auto) Lymph % (Auto) Peach % (Auto) Eos % (Auto) Baso % (Auto) Lymph # (Auto) Peach # (Auto) Eos # (Auto) Baso # (Auto) Abs Immat Gran (auto) Absolute Neuts (auto) Absolute Nucleated RBC Nucleated RBC % Sodium Potassium Chloride Carbon Dioxide Anion Gap BUN Creatinine Estim Creat Clear Calc Estimated GFR Glucose POC Capillary Glucose 210 H 195 H 252 H Calcium 02/25/24 02/25/24 04:31 07:32 WBC 10.7 H RBC 2.90 L Hgb 9.8 L Hct 29.5 L MCV 101.7 H MCH 33.8 MCHC 33.2 RDW 12.9 Plt Count 176 MPV 9.3 Immature Gran % (Auto) 0.2 Neut % (Auto) 78.6 H Lymph % (Auto) 6.4 L Peach % (Auto) 11.8 H Eos % (Auto) 2.3 Baso % (Auto) 0.7 Lymph # (Auto) 0.69 L Peach # (Auto) 1.3 H Eos # (Auto) 0.3 Baso # (Auto) 0.1 Abs Immat Gran (auto) 0.02 Absolute Neuts (auto) 8.4 H Absolute Nucleated RBC 0.000 Nucleated RBC % 0.0 Sodium 133 L Potassium 3.9 Chloride 95 L Carbon Dioxide 28 Anion Gap 10 BUN 52 H D Creatinine 4.03 H Estim Creat Clear Calc 16 Estimated GFR 14 L Glucose 116 H POC Capillary Glucose 137 H Calcium 8.4
[2024-02-25 11:15] LABS: Glucose Point of Care 201 mg/dl (65-105)
[2024-02-25] MEDS: METOPROLOL SUCCINATE EXT REL 100 MG TABCR 200 MG PO ×2 (12:00→20:39)
[2024-02-25] MEDS: INSULIN ASPART (*BKC) 100 UNITS/ML SUB-Q ×2 (13:57→20:52)
[2024-02-25] MEDS: SODIUM CHLORIDE 0.9% IV 1,000 ML 999 ML IV CONT (14:00)
[2024-02-25] MEDS: HEPARIN SODIUM 1,000 UNITS/ML VIAL 1000 UNITS IV PUSH (14:45)
[2024-02-25] MEDS: HEPARIN SODIUM 1,000 UNITS/ML VIAL 500 UNITS IV PUSH ×2 (15:00)
[2024-02-25] MEDS: HEPARIN SODIUM 1,000 UNITS/ML VIAL 6000 UNITS (15:00)
[2024-02-25] MEDS: LATANOPROST 0.005% OP SOLN 2.5 ML BTL 1 DROP EACH EYE (18:58)
[2024-02-25 19:12] LABS: Glucose Point of Care 185 mg/dl (65-105)
[2024-02-25] MEDS: cefTRIAXone 2 GM/NS 100 ML 2 GM/100 ML BAG IVPB (20:47)
[2024-02-25] MEDS: INSULIN GLARGINE (*BKC) 100 UNITS/ML 17 UNITS SUB-Q (21:40)
[2024-02-25] MEDS: AZITHROMYCIN 500 MG/NS 250 ML 500 MG/250 ML BAG 250 MG IVPB (21:42)
[2024-02-25 22:11] LABS: Glucose Point of Care 223 mg/dl (65-105)
[2024-02-26] VITALS (26 sets, daily range): BP systolic 113–144; BP diastolic 57–96; PULSE 82–113; RESP 18–27; TEMP 36.7–36.9; O2SAT 94–100
[2024-02-26] MEDS: IPRATROPIUM 0.5 MG/ALBUTEROL SULFATE 2.5 MG AMPUL.NEB 3 ML INHALATION ×3 (02:06→20:59)
[2024-02-26] MEDS: traMADol/ACETAMINOPHEN (*CRX) (ULTRACET) 37.5/325 MG TABLET 1 TAB PO ×2 (05:42→20:24)
[2024-02-26] MEDS: FLUTICASONE/UMECLIDIN/VILANTER 100-62.5-25 MCG ELLIPTA 1 PUFF INHALATION (08:38)
[2024-02-26 08:48] LABS: Glucose Point of Care 134 mg/dl (65-105)
[2024-02-26] MEDS: APIXABAN 2.5 MG TABLET PO ×2 (09:03→20:10)
[2024-02-26] MEDS: ATORVASTATIN 20 MG TABLET PO (09:04)
[2024-02-26] MEDS: hydrALAZINE HCL 25 MG TABLET PO ×3 (09:04→17:33)
[2024-02-26] MEDS: dilTIAZem HCL CD 180 MG CAP.24HR 360 MG PO (09:04)
[2024-02-26] MEDS: FUROSEMIDE 20 MG TABLET PO (09:04)
[2024-02-26] MEDS: metOLazone 5 MG TABLET BY MOUTH (09:04)
[2024-02-26] MEDS: METOPROLOL SUCCINATE EXT REL 100 MG TABCR 200 MG PO ×2 (09:04→20:09)
[2024-02-26] MEDS: PANTOPRAZOLE 40 MG TABLET PO ×2 (09:05→13:40)
--- NOTE | 2024-02-26 10:15 | P.PNCA_ITS ---
Progress Note: A&P Assessment and Plan (1) Atrial fibrillation with rapid ventricular response: Code(s): I48.91 - Unspecified atrial fibrillation Status: Acute Assessment and Plan: AFib with RVR improving today Left atrial appendage thrombus Hypertension controlled Chronic diastolic heart failure End-stage renal disease on hemodialysis Plan Continue Metoprolol 200 mg b.i.d. Continue diltiazem 360 mg daily Continue oral anticoagulation Eliquis 5 mg b.i.d. (2) Thrombus of left atrial appendage: Code(s): I51.3 - Intracardiac thrombosis, not elsewhere classified Status: Acute Assessment and Plan: (3) Hypertension: Code(s): I10 - Essential (primary) hypertension Status: Acute Assessment and Plan: (4) ESRD on dialysis: Code(s): N18.6 - End stage renal disease; Z99.2 - Dependence on renal dialysis Status: Acute Assessment and Plan: Nephrology consulted (5) Hyperlipidemia: Code(s): E78.5 - Hyperlipidemia, unspecified Status: Acute Assessment and Plan: Continue Atorvastatin. (6) Type 2 diabetes mellitus with hyperglycemia, with long-term current use of insulin: Code(s): E11.65 - Type 2 diabetes mellitus with hyperglycemia; Z79.4 - intermediate teacher (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 of insulin Status: Acute Assessment and Plan: Management of diabetes as per Hospitalist. Subjective Date/time seen: 02/26/24 10:15 Interval history: No acute events Telemetry atrial fibrillation heart rate 100-110 Review of Systems Review of Systems: All systems reviewed & are unremarkable except as noted in HPI and below Exam Const: General: no acute distress HENMT: Mouth: Yes moist mucous membranes Eyes: General: appearance normal, both eyes and all related structures Sclera: sclerae normal Resp: Effort & Inspection: normal respiratory effort Cardio: Rate: tachycardic Rhythm: abnormal rhythm irregularly irregular Skin: Other: Bruising noted on arms Neuro: Speech: normal speech Psych: Mental Status: mental status grossly normal Affect: normal affect Objective Data Vital Signs Vital Signs: Vital Signs - 24 hr 02/25/24 11:59 02/25/24 12:00 02/25/24 12:00 Temperature 36.9 C Pulse Rate 131 H 149 H 149 H Respiratory Rate 20 20 Blood Pressure 125/74 Pulse Oximetry 95 95 Oxygen Delivery Nasal Cannula Oxygen Flow Rate 1 Fraction of Inspired Oxygen 02/25/24 12:00 02/25/24 13:10 02/25/24 14:20 Temperature 36.4 C Pulse Rate 149 H 150 H 107 H Respiratory Rate 16 Blood Pressure 142/76 H Pulse Oximetry 94 Oxygen Delivery Oxygen Flow Rate Fraction of Inspired Oxygen 02/25/24 14:20 02/25/24 14:30 02/25/24 14:45 Temperature Pulse Rate 92 108 H Respiratory Rate Blood Pressure 151/77 H 144/76 H Pulse Oximetry Oxygen Delivery Oxygen Flow Rate 1 Fraction of Inspired Oxygen 02/25/24 15:00 02/25/24 15:03 02/25/24 15:15 Temperature Pulse Rate 85 131 H 124 H Respiratory Rate Blood Pressure 143/80 H 148/109 H Pulse Oximetry Oxygen Delivery Oxygen Flow Rate Fraction of Inspired Oxygen 02/25/24 15:30 02/25/24 15:32 02/25/24 15:32 Temperature Pulse Rate 92 124 H 124 H Respiratory Rate 16 Blood Pressure 143/78 H Pulse Oximetry 94 Oxygen Delivery Nasal Cannula Oxygen Flow Rate 1 Fraction of Inspired Oxygen 02/25/24 15:43 02/25/24 15:45 02/25/24 16:00 Temperature Pulse Rate 126 H 88 74 Respiratory Rate Blood Pressure 161/75 H 147/75 H Pulse Oximetry Oxygen Delivery Oxygen Flow Rate Fraction of Inspired Oxygen 02/25/24 16:15 02/25/24 16:30 02/25/24 16:45 Temperature Pulse Rate 127 H 115 H 123 H Respiratory Rate Blood Pressure 156/99 H 160/82 H 127/77 Pulse Oximetry Oxygen Delivery Oxygen Flow Rate Fraction of Inspired Oxygen 02/25/24 17:00 02/25/24 17:15 02/25/24 17:30 Temperature Pulse Rate 121 H 69 105 H Respiratory Rate Blood Pressure 151/81 H 135/66 150/80 H Pulse Oximetry Oxygen Delivery Oxygen Flow Rate Fraction of Inspired Oxygen 02/25/24 17:45 02/25/24 18:00 02/25/24 18:08 Temperature 36.4 C L Pulse Rate 91 91 86 Respiratory Rate 16 Blood Pressure 145/75 H 143/75 H 158/71 H Pulse Oximetry 97 Oxygen Delivery Oxygen Flow Rate Fraction of Inspired Oxygen 02/25/24 18:08 02/25/24 19:29 02/25/24 20:00 Temperature 36.4 C L 37.0 C Pulse Rate 86 104 H 102 H Respiratory Rate 16 20 Blood Pressure 158/71 H 120/62 Pulse Oximetry 96 Oxygen Delivery Oxygen Flow Rate Fraction of Inspired Oxygen 02/25/24 20:20 02/25/24 20:26 02/25/24 20:26 Temperature Pulse Rate 95 105 H Respiratory Rate 18 18 Blood Pressure Pulse Oximetry 93 94 Oxygen Delivery Nasal Cannula Nasal Cannula Oxygen Flow Rate 2 1 Fraction of Inspired Oxygen 02/25/24 20:32 02/25/24 20:39 02/25/24 22:00 Temperature Pulse Rate 111 H 99 103 H Respiratory Rate 18 Blood Pressure Pulse Oximetry Oxygen Delivery Oxygen Flow Rate Fraction of Inspired Oxygen 02/25/24 23:50 02/26/24 00:00 02/26/24 00:00 Temperature Pulse Rate 101 H 82 99 Respiratory Rate 23 H 22 H Blood Pressure Pulse Oximetry 94 97 Oxygen Delivery CPAP CPAP Oxygen Flow Rate 2 Fraction of Inspired Oxygen 02/26/24 00:00 02/26/24 02:00 02/26/24 02:06 Temperature 36.7 C Pulse Rate 82 86 100 Respiratory Rate 22 H 18 Blood Pressure 113/64 Pulse Oximetry Oxygen Delivery Oxygen Flow Rate Fraction of Inspired Oxygen 02/26/24 02:13 02/26/24 03:50 02/26/24 04:00 Temperature 36.9 C Pulse Rate 110 H 87 90 Respiratory Rate 18 24 H Blood Pressure 124/57 L Pulse Oximetry 100 Oxygen Delivery Oxygen Flow Rate Fraction of Inspired Oxygen 02/26/24 04:00 02/26/24 06:00 02/26/24 08:14 Temperature 36.9 C Pulse Rate 87 84 87 Respiratory Rate 24 H 24 H Blood Pressure 144/96 H Pulse Oximetry 100 100 Oxygen Delivery Nasal Cannula Oxygen Flow Rate 1 Fraction of Inspired Oxygen 02/26/24 08:39 02/26/24 08:39 02/26/24 08:49 Temperature Pulse Rate 109 H 107 H Respiratory Rate 20 20 Blood Pressure Pulse Oximetry 95 Oxygen Delivery Nasal Cannula Oxygen Flow Rate 2 Fraction of Inspired Oxygen 02/26/24 09:04 Temperature Pulse Rate 113 H Respiratory Rate Blood Pressure Pulse Oximetry Oxygen Delivery Oxygen Flow Rate Fraction of Inspired Oxygen Intake/Output Intake/Output: Intake & Output 02/23/24 02/24/24 02/25/24 02/26/24 23:59 23:59 23:59 23:59 Intake Total 728.8 1776.3 1720 590 Output Total 8552 400 2850 Balance -1995.2 1376.3 -0818 590 Meds/Results Medications: Active Medications Generic Name Dose Route Start Last Admin Trade Name Freq PRN Reason Stop Dose Admin Acetaminophen 650 mg 02/21/24 17:03 Acetaminophen 325 Mg Tablet PO Q6H PRN Mild Pain (1-3) or Fever Albuterol 2.5 mg 02/22/24 08:43 Albuterol Sulfate Neb 2.5 Mg/3 Ml Inh INHALATION Q4HRT PRN Shortness Of Breath Albuterol/Ipratropium 3 ml 02/22/24 14:00 02/26/24 08:38 Ipratropium 0.5 Mg/Albuterol Sulfate 2.5 Mg Ampul.Neb 3 Ml INHALATION 3 ml Q6HRT FAISAL Administration Alprazolam 0.5 mg 02/21/24 23:13 02/24/24 21:03 Alprazolam (*Crx) 0.5 Mg Tablet PO 0.5 mg BID PRN Administration anxiety Apixaban 2.5 mg 02/22/24 10:55 02/26/24 09:03 Apixaban 2.5 Mg Tablet PO 2.5 mg Q12HR FAISAL Administration Atorvastatin Calcium 20 mg 02/22/24 09:00 02/26/24 09:04 Atorvastatin 20 Mg Tablet PO 20 mg DAILY FAISAL Administration Dextrose 12.5 gm 02/21/24 17:04 Dextrose 50% 25 Gm/50 Ml Syringe IV PUSH PRN PRN Hypoglycemia Protocol Diltiazem HCl 360 mg 02/24/24 12:30 02/26/24 09:04 Diltiazem Hcl Cd 180 Mg Cap.24hr PO 360 mg QAM FAISAL Administration Fluticasone/Umeclidinium/Vilanterol 1 puff 02/22/24 09:00 02/26/24 08:38 Fluticasone/Umeclidin/Vilanter 100-62.5-25 Mcg Ellipta INHALATION 1 puff DAILY FAISAL Administration Furosemide 20 mg 02/22/24 09:00 02/26/24 09:04 Furosemide 20 Mg Tablet PO 20 mg QAM FAISAL Administration Glucagon 1 mg 02/21/24 17:04 Glucagon For Inj 1 Mg Vial IM PRN PRN Hypoglycemia Protocol Glucose 15 gm 02/21/24 17:04 Glucose Oral Gel 15 Gm Of Glucse In 37.5 Gm Tube PO PRN PRN Hypoglycemia Protocol Hydralazine HCl 25 mg 02/21/24 23:20 02/26/24 09:04 Hydralazine Hcl 25 Mg Tablet PO 25 mg TID FAISAL Administration Dextrose 1,000 mls @ 100 mls/hr 02/21/24 17:04 Dextrose 5% 1,000 Ml IVPB PRN PRN Hypoglycemia Protocol Ceftriaxone Sodium 2 gm in 100 mls @ 200 mls/hr 02/23/24 19:00 02/25/24 20:47 Rocephin 2 Gm/Ns 100 Ml IVPB 100 mls/hr Q24H FAISAL Administration Azithromycin 500 mg in 250 mls @ 250 mls/hr 02/23/24 20:00 02/25/24 21:42 Zithromax IVPB 250 mls/hr Q24H FAISAL Administration Insulin Aspart 3 - 6 units 02/22/24 08:00 02/25/24 19:35 Insulin Aspart (*Bkc) 100 Units/Ml SUB-Q Not Given TIDWM FAISAL Protocol Insulin Aspart 1 - 3 units 02/21/24 21:00 02/25/24 20:52 Insulin Aspart (*Bkc) 100 Units/Ml SUB-Q 1 units HS FAISAL Administration Protocol Insulin Glargine 17 units 02/22/24 21:00 02/25/24 21:40 Insulin Glargine (*Bkc) 100 Units/Ml SUB-Q 17 units HS FAISAL Administration Latanoprost 1 drop 02/21/24 23:25 02/25/24 18:58 Latanoprost 0.005% Op Soln 2.5 Ml Btl EACH EYE 1 drop QPM FAISAL Administration Metolazone 5 mg 02/22/24 09:00 02/26/24 09:04 Metolazone 5 Mg Tablet BY MOUTH 5 mg DAILY FAISAL Administration Metoprolol Succinate 200 mg 02/25/24 21:00 02/26/24 09:04 Metoprolol Succinate Ext Rel 100 Mg Tabcr PO 200 mg Q12HR FAISAL Administration Pantoprazole Sodium 40 mg 02/21/24 23:25 02/26/24 09:05 Pantoprazole 40 Mg Tablet PO 40 mg BID FAISAL Administration Tramadol/Acetaminophen 1 tab 02/21/24 23:13 02/26/24 05:42 Tramadol/Acetaminophen (*Crx) (Ultracet) 37.5/325 Mg Tablet PO 1 tab Q6H PRN Administration PAIN RATED 4-6 Radiology Results: ITS Impressions Chest X-Ray 02/21/24 12:21 IMPRESSION: Bilateral basal pneumonia. Cardiomegaly with cardiac decompensation and pulmonary edema is not excluded. Bilateral interstitial pneumonitis is also possible. Venous Doppler Study 02/22/24 08:54 IMPRESSION: Negative bilateral lower extremity venous US. No deep vein thrombosis. Labs Labs: Laboratory Results - last 24 hr 02/25/24 02/25/24 02/25/24 11:11 19:03 20:51 POC Capillary Glucose 201 H 185 H 223 H 02/26/24 07:21 POC Capillary Glucose 134 H
--- NOTE | 2024-02-26 10:20 | P.PNIM_ITS ---
Progress Note: A&P Assessment and Plan (1) Atrial fibrillation with rapid ventricular response: Code(s): I48.91 - Unspecified atrial fibrillation Status: Acute (2) Hypomagnesemia: Code(s): E83.42 - Hypomagnesemia Status: Acute (3) Hypertension: Code(s): I10 - Essential (primary) hypertension Status: Acute (4) End-stage renal disease on hemodialysis: Code(s): N18.6 - End stage renal disease; Z99.2 - Dependence on renal dialysis Status: Acute (5) Chronic obstructive pulmonary disease: Qualifiers: COPD type: unspecified COPD Qualified Code(s): J44.9 - Chronic obstructive pulmonary disease, unspecified Code(s): J44.9 - Chronic obstructive pulmonary disease, unspecified Status: Acute (6) Obstructive sleep apnea: Code(s): G47.33 - Obstructive sleep apnea (adult) (pediatric) Status: Acute (7) Insulin dependent diabetes mellitus: Status: Acute Plan This is a very pleasant 83-year-old male with paroxysmal atrial fibrillation no longer on chronic anticoagulation due to GI bleeding, duodenal ulcers, 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 proBNP 21,200, troponin 0.019. Chest x-ray showed bibasilar pneumonia and cardiomegaly with probable pulmonary edema. 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 Chest x-ray shows pulmonary edema, He was started on a diltiazem drip in the ED with some improvement in his rates. He is only on 25 mg of metoprolol succinate today which can be titrated up for better rate control. For now we will increase that to 50 mg daily and decrease clonidine to 0.1 mg daily and adjust as needed. not on anticoagulation due to history of bleeding ulcers and gastritis Appreciate cardiology consultation, can't perform electrical cardioversion Increase metoprolol to 200 mg b.i.d. p.o., Cardizem 360 mg daily, Eliquis 5 mg b.i.d. per cardio left atrial appendage thrombus on RODNEY in 2020 Patient may need anticoagulation Follow-up cardiology recommendation End-stage renal disease on hemodialysis Consult medical massage therapist for dialysis Chest x-ray shows pulmonary congestion Management per medical massage therapist Acute on chronic diastolic heart failure echo: 1. Technically difficult study with limited views. 2. Left ventricular chamber dimension is normal. 3. Left ventricular systolic function is normal, estimated at 65-70%. 4. There is mildly increased left ventricular wall thickness. 5. Left atrial chamber dimension is moderately enlarged. 6. There is mild tricuspid valve regurgitation. Patient's shortness breath, x-ray shows pulmonary congestion Received IV furosemide May need more dialysis COPD exacerbation Patient leukocytosis 13,700 upon arrival in the ED, X-ray shows bilateral basal pneumonia Start DuoNeb scheduled, albuterol nebulizer p.r.n. Follow-up VBG on azithromycin ceftriaxone IV Type 2 diabetes Continue basal insulin and initiate sliding scale insulin, Accu-Cheks, and hypoglycemic protocol. controlled Chronic anemia Stable Possible due to end-stage renal disease Subjective Date/time seen: 02/26/24 10:20 Interval history: I saw and examined patient today. Patient denies palpitation, heart rate is better control, telemetry showed AFib, heart rate still above 100 most time. Patient denies lightheadedness, shortness breast improving. Patient denies abdomen pain nausea vomiting diarrhea. Telemetry atrial fibrillation heart rate 100-110 Exam Narrative: GENERAL: Ill-appearing, in no acute distress. Well-nourished. - EYES: EOMI. Anicteric. - HENT: Moist mucous membranes. - LUNGS: Coarse breath sound bilaterall y, tachypnea . - CARDIOVASCULAR: Irregular irregular r hythm, tachycardia. No murmur. No JVD. - ABDOMEN: Soft, non-tender and non-dist ended. No palpable masses. - EXTREMITIES: No edema. Peripheral puls es 2+. Non-tender. - NEUROLOGIC: No focal neurological defi cits. CN II-XII grossly intact. General weakness - PSYCHIATRIC: Awake, Alert and oriented x 3. Appropriate mood and affect. - SKIN: No rashes or lesions. Warm. - LYMPH: No cervical lymphadenopathy. Objective Data Vital Signs Vital Signs: Vital Signs - 24 hr 02/25/24 11:59 02/25/24 12:00 02/25/24 12:00 Temperature 98.5 F Pulse Rate 131 H 149 H 149 H Respiratory Rate 20 20 Blood Pressure 125/74 Pulse Oximetry 95 95 Oxygen Delivery Nasal Cannula Oxygen Flow Rate 1 Fraction of Inspired Oxygen 24 02/25/24 12:00 02/25/24 13:10 02/25/24 14:20 Temperature 97.6 F Pulse Rate 149 H 150 H 107 H Respiratory Rate 16 Blood Pressure 142/76 H Pulse Oximetry 94 Oxygen Delivery Oxygen Flow Rate Fraction of Inspired Oxygen 02/25/24 14:20 02/25/24 14:30 02/25/24 14:45 Temperature Pulse Rate 92 108 H Respiratory Rate Blood Pressure 151/77 H 144/76 H Pulse Oximetry Oxygen Delivery Oxygen Flow Rate 1 Fraction of Inspired Oxygen 02/25/24 15:00 02/25/24 15:03 02/25/24 15:15 Temperature Pulse Rate 85 131 H 124 H Respiratory Rate Blood Pressure 143/80 H 148/109 H Pulse Oximetry Oxygen Delivery Oxygen Flow Rate Fraction of Inspired Oxygen 02/25/24 15:30 02/25/24 15:32 02/25/24 15:32 Temperature Pulse Rate 92 124 H 124 H Respiratory Rate 16 Blood Pressure 143/78 H Pulse Oximetry 94 Oxygen Delivery Nasal Cannula Oxygen Flow Rate 1 Fraction of Inspired Oxygen 02/25/24 15:43 02/25/24 15:45 02/25/24 16:00 Temperature Pulse Rate 126 H 88 74 Respiratory Rate Blood Pressure 161/75 H 147/75 H Pulse Oximetry Oxygen Delivery Oxygen Flow Rate Fraction of Inspired Oxygen 02/25/24 16:15 02/25/24 16:30 02/25/24 16:45 Temperature Pulse Rate 127 H 115 H 123 H Respiratory Rate Blood Pressure 156/99 H 160/82 H 127/77 Pulse Oximetry Oxygen Delivery Oxygen Flow Rate Fraction of Inspired Oxygen 02/25/24 17:00 02/25/24 17:15 02/25/24 17:30 Temperature Pulse Rate 121 H 69 105 H Respiratory Rate Blood Pressure 151/81 H 135/66 150/80 H Pulse Oximetry Oxygen Delivery Oxygen Flow Rate Fraction of Inspired Oxygen 02/25/24 17:45 02/25/24 18:00 02/25/24 18:08 Temperature 97.5 F L Pulse Rate 91 91 86 Respiratory Rate 16 Blood Pressure 145/75 H 143/75 H 158/71 H Pulse Oximetry 97 Oxygen Delivery Oxygen Flow Rate Fraction of Inspired Oxygen 02/25/24 18:08 02/25/24 19:29 02/25/24 20:00 Temperature 97.5 F L 98.6 F Pulse Rate 86 104 H 102 H Respiratory Rate 16 20 Blood Pressure 158/71 H 120/62 Pulse Oximetry 96 Oxygen Delivery Oxygen Flow Rate Fraction of Inspired Oxygen 02/25/24 20:20 02/25/24 20:26 02/25/24 20:26 Temperature Pulse Rate 95 105 H Respiratory Rate 18 18 Blood Pressure Pulse Oximetry 93 94 Oxygen Delivery Nasal Cannula Nasal Cannula Oxygen Flow Rate 2 1 Fraction of Inspired Oxygen 02/25/24 20:32 02/25/24 20:39 02/25/24 22:00 Temperature Pulse Rate 111 H 99 103 H Respiratory Rate 18 Blood Pressure Pulse Oximetry Oxygen Delivery Oxygen Flow Rate Fraction of Inspired Oxygen 02/25/24 23:50 02/26/24 00:00 02/26/24 00:00 Temperature Pulse Rate 101 H 82 99 Respiratory Rate 23 H 22 H Blood Pressure Pulse Oximetry 94 97 Oxygen Delivery CPAP CPAP Oxygen Flow Rate 2 Fraction of Inspired Oxygen 02/26/24 00:00 02/26/24 02:00 02/26/24 02:06 Temperature 98.1 F Pulse Rate 82 86 100 Respiratory Rate 22 H 18 Blood Pressure 113/64 Pulse Oximetry Oxygen Delivery Oxygen Flow Rate Fraction of Inspired Oxygen 02/26/24 02:13 02/26/24 03:50 02/26/24 04:00 Temperature 98.4 F Pulse Rate 110 H 87 90 Respiratory Rate 18 24 H Blood Pressure 124/57 L Pulse Oximetry 100 Oxygen Delivery Oxygen Flow Rate Fraction of Inspired Oxygen 02/26/24 04:00 02/26/24 06:00 02/26/24 08:14 Temperature 98.4 F Pulse Rate 87 84 87 Respiratory Rate 24 H 24 H Blood Pressure 144/96 H Pulse Oximetry 100 100 Oxygen Delivery Nasal Cannula Oxygen Flow Rate 1 Fraction of Inspired Oxygen 02/26/24 08:39 02/26/24 08:39 02/26/24 08:49 Temperature Pulse Rate 109 H 107 H Respiratory Rate 20 20 Blood Pressure Pulse Oximetry 95 Oxygen Delivery Nasal Cannula Oxygen Flow Rate 2 Fraction of Inspired Oxygen 02/26/24 09:04 Temperature Pulse Rate 113 H Respiratory Rate Blood Pressure Pulse Oximetry Oxygen Delivery Oxygen Flow Rate Fraction of Inspired Oxygen Intake/Output Intake/Output: Intake & Output 02/23/24 02/24/24 02/25/24 02/26/24 23:59 23:59 23:59 23:59 Intake Total 728.8 1776.3 1720 590 Output Total 2725 400 2850 Balance -1996.2 1376.3 -1130 590 Meds/Results Medications: Active Medications Generic Name Dose Route Start Last Admin Trade Name Freq PRN Reason Stop Dose Admin Acetaminophen 650 mg 02/21/24 17:03 Acetaminophen 325 Mg Tablet PO Q6H PRN Mild Pain (1-3) or Fever Albuterol 2.5 mg 02/22/24 08:43 Albuterol Sulfate Neb 2.5 Mg/3 Ml Inh INHALATION Q4HRT PRN Shortness Of Breath Albuterol/Ipratropium 3 ml 02/22/24 14:00 02/26/24 08:38 Ipratropium 0.5 Mg/Albuterol Sulfate 2.5 Mg Ampul.Neb 3 Ml INHALATION 3 ml Q6HRT FAISAL Administration Alprazolam 0.5 mg 02/21/24 23:13 02/24/24 21:03 Alprazolam (*Crx) 0.5 Mg Tablet PO 0.5 mg BID PRN Administration anxiety Apixaban 2.5 mg 02/22/24 10:55 02/26/24 09:03 Apixaban 2.5 Mg Tablet PO 2.5 mg Q12HR FAISAL Administration Atorvastatin Calcium 20 mg 02/22/24 09:00 02/26/24 09:04 Atorvastatin 20 Mg Tablet PO 20 mg DAILY FAISAL Administration Dextrose 12.5 gm 02/21/24 17:04 Dextrose 50% 25 Gm/50 Ml Syringe IV PUSH PRN PRN Hypoglycemia Protocol Diltiazem HCl 360 mg 02/24/24 12:30 02/26/24 09:04 Diltiazem Hcl Cd 180 Mg Cap.24hr PO 360 mg QAM FAISAL Administration Fluticasone/Umeclidinium/Vilanterol 1 puff 02/22/24 09:00 02/26/24 08:38 Fluticasone/Umeclidin/Vilanter 100-62.5-25 Mcg Ellipta INHALATION 1 puff DAILY FAISAL Administration Furosemide 20 mg 02/22/24 09:00 02/26/24 09:04 Furosemide 20 Mg Tablet PO 20 mg QAM FAISAL Administration Glucagon 1 mg 02/21/24 17:04 Glucagon For Inj 1 Mg Vial IM PRN PRN Hypoglycemia Protocol Glucose 15 gm 02/21/24 17:04 Glucose Oral Gel 15 Gm Of Glucse In 37.5 Gm Tube PO PRN PRN Hypoglycemia Protocol Hydralazine HCl 25 mg 02/21/24 23:20 02/26/24 09:04 Hydralazine Hcl 25 Mg Tablet PO 25 mg TID FAISAL Administration Dextrose 1,000 mls @ 100 mls/hr 02/21/24 17:04 Dextrose 5% 1,000 Ml IVPB PRN PRN Hypoglycemia Protocol Ceftriaxone Sodium 2 gm in 100 mls @ 200 mls/hr 02/23/24 19:00 02/25/24 20:47 Rocephin 2 Gm/Ns 100 Ml IVPB 100 mls/hr Q24H FAISAL Administration Azithromycin 500 mg in 250 mls @ 250 mls/hr 02/23/24 20:00 02/25/24 21:42 Zithromax IVPB 250 mls/hr Q24H FAISAL Administration Insulin Aspart 3 - 6 units 02/22/24 08:00 02/25/24 19:35 Insulin Aspart (*Bkc) 100 Units/Ml SUB-Q Not Given TIDWM [facility] Protocol Insulin Aspart 1 - 3 units 02/21/24 21:00 02/25/24 20:52 Insulin Aspart (*Bkc) 100 Units/Ml SUB-Q 1 units HS FAISAL Administration Protocol Insulin Glargine 17 units 02/22/24 21:00 02/25/24 21:40 Insulin Glargine (*Bkc) 100 Units/Ml SUB-Q 17 units HS FAISAL Administration Latanoprost 1 drop 02/21/24 23:25 02/25/24 18:58 Latanoprost 0.005% Op Soln 2.5 Ml Btl EACH EYE 1 drop QPM FAISAL Administration Metolazone 5 mg 02/22/24 09:00 02/26/24 09:04 Metolazone 5 Mg Tablet BY MOUTH 5 mg DAILY FAISAL Administration Metoprolol Succinate 200 mg 02/25/24 21:00 02/26/24 09:04 Metoprolol Succinate Ext Rel 100 Mg Tabcr PO 200 mg Q12HR FAISAL Administration Pantoprazole Sodium 40 mg 02/21/24 23:25 02/26/24 09:05 Pantoprazole 40 Mg Tablet PO 40 mg BID FAISAL Administration Tramadol/Acetaminophen 1 tab 02/21/24 23:13 02/26/24 05:42 Tramadol/Acetaminophen (*Crx) (Ultracet) 37.5/325 Mg Tablet PO 1 tab Q6H PRN Administration PAIN RATED 4-6 Radiology Results: ITS Impressions Chest X-Ray 02/21/24 12:21 IMPRESSION: Bilateral basal pneumonia. Cardiomegaly with cardiac decompensation and pulmonary edema is not excluded. Bilateral interstitial pneumonitis is also possible. Venous Doppler Study 02/22/24 08:54 IMPRESSION: Negative bilateral lower extremity venous US. No deep vein thrombosis. Labs Labs: Laboratory Results - last 24 hr 02/25/24 02/25/24 02/25/24 11:11 19:03 20:51 POC Capillary Glucose 201 H 185 H 223 H 02/26/24 07:21 POC Capillary Glucose 134 H
[2024-02-26 10:47] LABS: Basophils Absolute Auto 0.1 K/mm3 (0.0-0.1); Basophils Percent Auto 0.8 % (0.2-1.2); Eosinophils Absolute Auto 0.3 K/mm3 (0-0.3); Eosinophils Percent Auto 2.9 % (0-4.4); Hemoglobin 10.1 g/dL (14.0-18.0); Immature Granulocyte Absolute 0.03 K/mm3 (0.00-0.031); Immature Granulocyte Percent A 0.3 % (0-0.5); Lymphocytes Absolute Auto 0.66 K/mm3 (0.9-3.2); Lymphocytes Percent Auto 7.3 % (18.3-44.2); Mean Corpuscular HGB Conc 33.7 g/dl (32-36); Mean Corpuscular Hemoglobin 34.2 pg (26-34); Mean Corpuscular Volume 101.7 fl (80-100); Mean Platelet Volume 8.5 fl (7.4-10.4); Monocytes Percent Auto 10.4 % (2.6-8.5); Neutrophils Absolute Auto 7.1 K/mm3 (1.3-6.7); Neutrophils Percent Auto 78.3 % (45.5-73.1); Platelet Count Result 185 k/mm3 (150-375); Red Blood Count 2.95 M/mm3 (4.6-6.20); White Blood Count 9.1 K/mm3 (4.5-10.0)
[2024-02-26 11:01] LABS: Anion Gap 8 mmol/L (4-12); Blood Urea Nitrogen 35 mg/dL (9-20); Calcium 8.7 mg/dL (8.4-10.2); Carbon Dioxide 26 mmol/L (22-30); Chloride 102 mmol/L (98-107); Estimated CRCL calculation 19 ml/min; Estimated Glomerular Filt Rate 18; Glucose 206 mg/dL (65-110); Potassium 4.2 mmol/L (3.4-5.0); Sodium 136 mmol/L (137-145)
[2024-02-26 11:32] LABS: Glucose Point of Care 199 mg/dl (65-105)
[2024-02-26] MEDS: LATANOPROST 0.005% OP SOLN 2.5 ML BTL 1 DROP EACH EYE (13:40)
[2024-02-26 16:38] LABS: Glucose Point of Care 153 mg/dl (65-105)
[2024-02-26] MEDS: cefTRIAXone 2 GM/NS 100 ML 2 GM/100 ML BAG IVPB (19:35)
[2024-02-26] MEDS: AZITHROMYCIN 500 MG/NS 250 ML 500 MG/250 ML BAG 250 MG IVPB (20:09)
[2024-02-26] MEDS: ALPRAZolam (*CRX) 0.5 MG TABLET PO (20:24)
[2024-02-26] MEDS: INSULIN ASPART (*BKC) 100 UNITS/ML SUB-Q (20:29)
[2024-02-26] MEDS: INSULIN GLARGINE (*BKC) 100 UNITS/ML 17 UNITS SUB-Q (20:29)
[2024-02-26 21:16] LABS: Glucose Point of Care 217 mg/dl (65-105)
[2024-02-27] VITALS (24 sets, daily range): BP systolic 117–149; BP diastolic 61–91; PULSE 71–126; RESP 17–24; TEMP 36.4–37.1; O2SAT 92–100
[2024-02-27] MEDS: IPRATROPIUM 0.5 MG/ALBUTEROL SULFATE 2.5 MG AMPUL.NEB 3 ML INHALATION ×4 (01:41→20:38)
--- NOTE | 2024-02-27 03:26 | PC.NURSE ---
Pt had 10 beat run Vtach at 0235. Patient asymptomatic. Dr Salazar notified and order for AM magnesium level obtained.
[2024-02-27] MEDS: FLUTICASONE/UMECLIDIN/VILANTER 100-62.5-25 MCG ELLIPTA 1 PUFF INHALATION (07:11)
[2024-02-27 08:18] LABS: Basophils Absolute Auto 0.1 K/mm3 (0.0-0.1); Eosinophils Absolute Auto 0.4 K/mm3 (0-0.3); Eosinophils Percent Auto 3.5 % (0-4.4); Hemoglobin 11.1 g/dL (14.0-18.0); Immature Granulocyte Absolute 0.06 K/mm3 (0.00-0.031); Immature Granulocyte Percent A 0.6 % (0-0.5); Lymphocytes Absolute Auto 0.74 K/mm3 (0.9-3.2); Lymphocytes Percent Auto 7.5 % (18.3-44.2); Mean Corpuscular HGB Conc 33.6 g/dl (32-36); Mean Corpuscular Hemoglobin 34.3 pg (26-34); Mean Corpuscular Volume 101.9 fl (80-100); Mean Platelet Volume 8.6 fl (7.4-10.4); Monocytes Absolute Auto 0.9 K/mm3 (0.1-0.6); Monocytes Percent Auto 9.2 % (2.6-8.5); Neutrophils Absolute Auto 7.7 K/mm3 (1.3-6.7); Neutrophils Percent Auto 78.2 % (45.5-73.1); Platelet Count Result 241 k/mm3 (150-375); Red Blood Count 3.24 M/mm3 (4.6-6.20); Red Cell Distribution Width 13.1 % (11.5-14.5); White Blood Count 9.9 K/mm3 (4.5-10.0)
[2024-02-27 08:39] LABS: Anion Gap 10 mmol/L (4-12); Blood Urea Nitrogen 47 mg/dL (9-20); Calcium 9.2 mg/dL (8.4-10.2); Carbon Dioxide 26 mmol/L (22-30); Chloride 100 mmol/L (98-107); Estimated CRCL calculation 16 ml/min; Estimated Glomerular Filt Rate 14; Glucose 135 mg/dL (65-110); Potassium 4.5 mmol/L (3.4-5.0); Sodium 136 mmol/L (137-145)
[2024-02-27 08:45] LABS: Glucose Point of Care 128 mg/dl (65-105)
[2024-02-27] MEDS: FUROSEMIDE 20 MG TABLET PO (09:18)
[2024-02-27] MEDS: hydrALAZINE HCL 25 MG TABLET PO ×3 (09:18→17:15)
[2024-02-27] MEDS: APIXABAN 2.5 MG TABLET PO ×2 (09:18→20:19)
[2024-02-27] MEDS: PANTOPRAZOLE 40 MG TABLET PO ×2 (09:18→17:16)
[2024-02-27] MEDS: metOLazone 5 MG TABLET BY MOUTH (09:18)
[2024-02-27] MEDS: dilTIAZem HCL CD 180 MG CAP.24HR 360 MG PO (09:18)
[2024-02-27] MEDS: METOPROLOL SUCCINATE EXT REL 100 MG TABCR 200 MG PO ×2 (09:19→20:19)
[2024-02-27] MEDS: ATORVASTATIN 20 MG TABLET PO (09:19)
--- NOTE | 2024-02-27 10:05 | PM.IMPN ---
Progress Note: A&P Assessment and Plan (1) Atrial fibrillation with rapid ventricular response: Code(s): I48.91 - Unspecified atrial fibrillation Status: Acute (2) Hypomagnesemia: Code(s): E83.42 - Hypomagnesemia Status: Acute (3) Hypertension: Code(s): I10 - Essential (primary) hypertension Status: Acute (4) End-stage renal disease on hemodialysis: Code(s): N18.6 - End stage renal disease; Z99.2 - Dependence on renal dialysis Status: Acute (5) Chronic obstructive pulmonary disease: Qualifiers: COPD type: unspecified COPD Qualified Code(s): J44.9 - Chronic obstructive pulmonary disease, unspecified Code(s): J44.9 - Chronic obstructive pulmonary disease, unspecified Status: Acute (6) Obstructive sleep apnea: Code(s): G47.33 - Obstructive sleep apnea (adult) (pediatric) Status: Acute (7) Insulin dependent diabetes mellitus: Status: Acute Plan This is a very pleasant 83-year-old male with paroxysmal atrial fibrillation no longer on chronic anticoagulation due to GI bleeding, duodenal ulcers, 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 proBNP 21,200, troponin 0.019. Chest x-ray showed bibasilar pneumonia and cardiomegaly with probable pulmonary edema. AFib RVR The patient presented to the emergency department from his advanced practice registered nurse's office for evaluation after he was found to be in rapid atrial fibrillation Patient mentions that his heart rate has been quite high for the past 1 week associated with shortness breath. Chest x-ray shows pulmonary edema, He was started on a diltiazem drip in the ED with some improvement in his rates. He is only on 25 mg of metoprolol succinate today which can be titrated up for better rate control. For now we will increase that to 50 mg daily and decrease clonidine to 0.1 mg daily and adjust as needed. not on anticoagulation due to history of bleeding ulcers and gastritis Appreciate cardiology consultation, can't perform electrical cardioversion Increase metoprolol to 200 mg b.i.d. p.o., Cardizem 360 mg daily, Eliquis 5 mg b.i.d. per cardio left atrial appendage thrombus on RODNEY in 2020 Patient may need anticoagulation Follow-up cardiology recommendation End-stage renal disease on hemodialysis Consult minute clerk for basic traffic for dialysis Chest x-ray shows pulmonary congestion Management per minute clerk for basic traffic Acute on chronic diastolic heart failure echo: 1. Technically difficult study with limited views. 2. Left ventricular chamber dimension is normal. 3. Left ventricular systolic function is normal, estimated at 65-70%. 4. There is mildly increased left ventricular wall thickness. 5. Left atrial chamber dimension is moderately enlarged. 6. There is mild tricuspid valve regurgitation. Patient's shortness breath, x-ray shows pulmonary congestion Received IV furosemide May need more dialysis COPD exacerbation Patient leukocytosis 13,700 upon arrival in the ED, X-ray shows bilateral basal pneumonia Start DuoNeb scheduled, albuterol nebulizer p.r.n. Follow-up VBG on azithromycin ceftriaxone IV Type 2 diabetes Continue basal insulin and initiate sliding scale insulin, Accu-Cheks, and hypoglycemic protocol. controlled Chronic anemia Stable Possible due to end-stage renal disease General weakness He patient has difficulty with ambulation. Physical deconditioning due to comorbidities and recent acute illness Consult PT OT rn progressive care for evaluation and assisting placement Patient may benefit from rehab in a senior living Subjective Date/time seen: 02/27/24 10:05 Interval history: I saw and examined patient today. Patient denies palpitation, heart rate is better control, telemetry showed AFib, heart rate still above 100 most time. Patient denies lightheadedness, shortness breast improving. Patient denies abdomen pain nausea vomiting diarrhea. Telemetry atrial fibrillation heart rate is controlled. has general weakness, has difficult to ambulate. Exam Narrative: GENERAL: Ill-appearing, in no acute distress. Well-nourished. - EYES: EOMI. Anicteric. - HENT: Moist mucous membranes. - LUNGS: Coarse breath sound bilaterally, tachypnea . - CARDIOVASCULAR: Irregular irregular rhythm, tachycardia. No murmur. No JVD. - ABDOMEN: Soft, non-tender and non-distended. No palpable masses. - EXTREMITIES: No edema. Peripheral pulses 2+. Non-tender. - NEUROLOGIC: No focal neurological deficits. CN II-XII grossly intact. General weakness - PSYCHIATRIC: Awake, Alert and oriented x 3. Appropriate mood and affect. - SKIN: No rashes or lesions. Warm. - LYMPH: No cervical lymphadenopathy. Objective Data Vital Signs Vital Signs: Vital Signs - 24 hr 02/26/24 11:41 02/26/24 12:00 02/26/24 12:00 Temperature 98.4 F Pulse Rate 109 H 109 H 109 H Respiratory Rate 22 H 22 H Blood Pressure 133/84 Pulse Oximetry 94 94 Oxygen Delivery Nasal Cannula Oxygen Flow Rate 2 Fraction of Inspired Oxygen 02/26/24 12:46 02/26/24 15:51 02/26/24 15:51 Temperature Pulse Rate 110 H 110 H 110 H Respiratory Rate 22 H Blood Pressure Pulse Oximetry 94 Oxygen Delivery Nasal Cannula Oxygen Flow Rate 2 Fraction of Inspired Oxygen 02/26/24 15:53 02/26/24 16:50 02/26/24 19:18 Temperature 98.4 F 98.4 F Pulse Rate 110 H 89 104 H Respiratory Rate 20 20 Blood Pressure 128/86 128/86 Pulse Oximetry 99 99 Oxygen Delivery Oxygen Flow Rate Fraction of Inspired Oxygen 02/26/24 20:00 02/26/24 20:00 02/26/24 20:09 Temperature Pulse Rate 110 H 108 H Respiratory Rate Blood Pressure Pulse Oximetry 96 Oxygen Delivery Nasal Cannula Oxygen Flow Rate 2 Fraction of Inspired Oxygen 02/26/24 20:57 02/26/24 21:06 02/26/24 22:00 Temperature Pulse Rate 96 97 94 Respiratory Rate 20 20 Blood Pressure Pulse Oximetry Oxygen Delivery Oxygen Flow Rate Fraction of Inspired Oxygen 02/26/24 23:00 02/27/24 00:00 02/27/24 00:00 Temperature 98.7 F Pulse Rate 108 H 94 Respiratory Rate 27 H 20 Blood Pressure 131/70 Pulse Oximetry 96 100 100 Oxygen Delivery CPAP CPAP Oxygen Flow Rate Fraction of Inspired Oxygen 02/27/24 00:00 02/27/24 01:42 02/27/24 01:43 Temperature Pulse Rate 114 H 86 86 Respiratory Rate 20 17 Blood Pressure Pulse Oximetry 96 Oxygen Delivery CPAP Oxygen Flow Rate Fraction of Inspired Oxygen 02/27/24 01:49 02/27/24 02:00 02/27/24 04:00 Temperature Pulse Rate 89 86 84 Respiratory Rate 20 20 Blood Pressure Pulse Oximetry 94 Oxygen Delivery Nasal Cannula Oxygen Flow Rate 1 Fraction of Inspired Oxygen 02/27/24 04:00 02/27/24 06:00 02/27/24 07:10 Temperature 97.6 F Pulse Rate 84 87 92 Respiratory Rate 20 18 Blood Pressure 127/91 H Pulse Oximetry 94 97 Oxygen Delivery Nasal Cannula Oxygen Flow Rate 2 Fraction of Inspired Oxygen 02/27/24 07:10 02/27/24 07:20 02/27/24 08:00 Temperature 97.7 F Pulse Rate 92 93 93 Respiratory Rate 18 18 24 H Blood Pressure 117/83 Pulse Oximetry 94 Oxygen Delivery Oxygen Flow Rate Fraction of Inspired Oxygen 02/27/24 09:19 Temperature Pulse Rate 110 H Respiratory Rate Blood Pressure Pulse Oximetry Oxygen Delivery Oxygen Flow Rate Fraction of Inspired Oxygen Intake/Output Intake/Output: Intake & Output 02/24/24 02/25/24 02/26/24 02/27/24 23:59 23:59 23:59 23:59 Intake Total 1776.3 2070 1640 500 Output Total 400 2850 300 100 Balance 1376.3 -780 1340 400 Meds/Results Medications: Active Medications Generic Name Dose Route Start Last Admin Trade Name Freq PRN Reason Stop Dose Admin Acetaminophen 650 mg 02/21/24 17:03 Acetaminophen 325 Mg Tablet PO Q6H PRN Mild Pain (1-3) or Fever Albuterol 2.5 mg 02/22/24 08:43 Albuterol Sulfate Neb 2.5 Mg/3 Ml Inh INHALATION Q4HRT PRN Shortness Of Breath Albuterol/Ipratropium 3 ml 02/22/24 14:00 02/27/24 07:10 Ipratropium 0.5 Mg/Albuterol Sulfate 2.5 Mg Ampul.Neb 3 Ml INHALATION 3 ml Q6HRT FAISAL Administration Alprazolam 0.5 mg 02/21/24 23:13 02/26/24 20:24 Alprazolam (*Crx) 0.5 Mg Tablet PO 0.5 mg BID PRN Administration anxiety Apixaban 2.5 mg 02/22/24 10:55 02/27/24 09:18 Apixaban 2.5 Mg Tablet PO 2.5 mg Q12HR FAISAL Administration Atorvastatin Calcium 20 mg 02/22/24 09:00 02/27/24 09:19 Atorvastatin 20 Mg Tablet PO 20 mg DAILY FAISAL Administration Dextrose 12.5 gm 02/21/24 17:04 Dextrose 50% 25 Gm/50 Ml Syringe IV PUSH PRN PRN Hypoglycemia Protocol Diltiazem HCl 360 mg 02/24/24 12:30 02/27/24 09:18 Diltiazem Hcl Cd 180 Mg Cap.24hr PO 360 mg QAM FAISAL Administration Fluticasone/Umeclidinium/Vilanterol 1 puff 02/22/24 09:00 02/27/24 07:11 Fluticasone/Umeclidin/Vilanter 100-62.5-25 Mcg Ellipta INHALATION 1 puff DAILY FAISAL Administration Furosemide 20 mg 02/22/24 09:00 02/27/24 09:18 Furosemide 20 Mg Tablet PO 20 mg QAM FAISAL Administration Glucagon 1 mg 02/21/24 17:04 Glucagon For Inj 1 Mg Vial IM PRN PRN Hypoglycemia Protocol Glucose 15 gm 02/21/24 17:04 Glucose Oral Gel 15 Gm Of Glucse In 37.5 Gm Tube PO PRN PRN Hypoglycemia Protocol Hydralazine HCl 25 mg 02/21/24 23:20 02/27/24 09:18 Hydralazine Hcl 25 Mg Tablet PO 25 mg TID FAISAL Administration Dextrose 1,000 mls @ 100 mls/hr 02/21/24 17:04 Dextrose 5% 1,000 Ml IVPB PRN PRN Hypoglycemia Protocol Ceftriaxone Sodium 2 gm in 100 mls @ 200 mls/hr 02/23/24 19:00 02/26/24 19:35 Rocephin 2 Gm/Ns 100 Ml IVPB 100 mls/hr Q24H FAISAL Administration Azithromycin 500 mg in 250 mls @ 250 mls/hr 02/23/24 20:00 02/26/24 20:09 Zithromax IVPB 250 mls/hr Q24H FAISAL Administration Insulin Aspart 3 - 6 units 02/22/24 08:00 02/27/24 09:17 Insulin Aspart (*Bkc) 100 Units/Ml SUB-Q Not Given TIDWM FAISAL Protocol Insulin Aspart 1 - 3 units 02/21/24 21:00 02/26/24 20:29 Insulin Aspart (*Bkc) 100 Units/Ml SUB-Q 1 units HS FAISAL Administration Protocol Insulin Glargine 17 units 02/22/24 21:00 02/26/24 20:29 Insulin Glargine (*Bkc) 100 Units/Ml SUB-Q 17 units HS FAISAL Administration Latanoprost 1 drop 02/21/24 23:25 02/26/24 13:40 Latanoprost 0.005% Op Soln 2.5 Ml Btl EACH EYE 1 drop QPM FAISAL Administration Metolazone 5 mg 02/22/24 09:00 02/27/24 09:18 Metolazone 5 Mg Tablet BY MOUTH 5 mg DAILY FAISAL Administration Metoprolol Succinate 200 mg 02/25/24 21:00 02/27/24 09:19 Metoprolol Succinate Ext Rel 100 Mg Tabcr PO 200 mg Q12HR FAISAL Administration Pantoprazole Sodium 40 mg 02/21/24 23:25 02/27/24 09:18 Pantoprazole 40 Mg Tablet PO 40 mg BID FAISAL Administration Tramadol/Acetaminophen 1 tab 02/21/24 23:13 02/26/24 20:24 Tramadol/Acetaminophen (*Crx) (Ultracet) 37.5/325 Mg Tablet PO 1 tab Q6H PRN Administration PAIN RATED 4-6 Radiology Results: ITS Impressions Chest X-Ray 02/21/24 12:21 IMPRESSION: Bilateral basal pneumonia. Cardiomegaly with cardiac decompensation and pulmonary edema is not excluded. Bilateral interstitial pneumonitis is also possible. Venous Doppler Study 02/22/24 08:54 IMPRESSION: Negative bilateral lower extremity venous US. No deep vein thrombosis. Labs Labs: Laboratory Results - last 24 hr 02/26/24 02/26/24 02/26/24 10:41 11:25 16:31 WBC 9.1 RBC 2.95 L Hgb 10.1 L Hct 30.0 L MCV 101.7 H MCH 34.2 H MCHC 33.7 RDW 13.0 Plt Count 185 MPV 8.5 Immature Gran % (Auto) 0.3 Neut % (Auto) 78.3 H Lymph % (Auto) 7.3 L [place] % (Auto) 10.4 H Eos % (Auto) 2.9 Baso % (Auto) 0.8 Lymph # (Auto) 0.66 L [place] # (Auto) 1.0 H Eos # (Auto) 0.3 Baso # (Auto) 0.1 Abs Immat Gran (auto) 0.03 Absolute Neuts (auto) 7.1 H Absolute Nucleated RBC 0.000 Nucleated RBC % 0.0 Sodium 136 L Potassium 4.2 Chloride 102 Carbon Dioxide 26 Anion Gap 8 BUN 35 H D Creatinine 3.35 H Estim Creat Clear Calc 19 Estimated GFR 18 L Glucose 206 H POC Capillary Glucose 199 H 153 H Calcium 8.7 Magnesium 02/26/24 02/27/24 02/27/24 20:28 08:00 08:05 WBC 9.9 RBC 3.24 L Hgb 11.1 L Hct 33.0 L MCV 101.9 H MCH 34.3 H MCHC 33.6 RDW 13.1 Plt Count 241 MPV 8.6 Immature Gran % (Auto) 0.6 H Neut % (Auto) 78.2 H Lymph % (Auto) 7.5 L [place] % (Auto) 9.2 H Eos % (Auto) 3.5 Baso % (Auto) 1.0 Lymph # (Auto) 0.74 L [place] # (Auto) 0.9 H Eos # (Auto) 0.4 H Baso # (Auto) 0.1 Abs Immat Gran (auto) 0.06 H Absolute Neuts (auto) 7.7 H Absolute Nucleated RBC 0.000 Nucleated RBC % 0.0 Sodium 136 L Potassium 4.5 Chloride 100 Carbon Dioxide 26 Anion Gap 10 BUN 47 H D Creatinine 4.12 H Estim Creat Clear Calc 16 Estimated GFR 14 L Glucose 135 H POC Capillary Glucose 217 H 128 H Calcium 9.2 Magnesium 2.0
--- NOTE | 2024-02-27 10:54 | P.PNCA_ITS ---
Progress Note: A&P Assessment and Plan (1) Atrial fibrillation with rapid ventricular response: Code(s): I48.91 - Unspecified atrial fibrillation Status: Acute Assessment and Plan: AFib with RVR improving today Left atrial appendage thrombus Hypertension controlled Chronic diastolic heart failure End-stage renal disease on hemodialysis Plan Continue Metoprolol 200 mg b.i.d. Continue diltiazem 360 mg daily Continue oral anticoagulation Eliquis 5 mg b.i.d. Difficult situation as we are limited in medical options given ESRD and LA thrombus. Currently he is optimally medically managed and asymptomatic. No changes to his medical regimen today. (2) Thrombus of left atrial appendage: Code(s): I51.3 - Intracardiac thrombosis, not elsewhere classified Status: Acute Assessment and Plan: (3) Hypertension: Code(s): I10 - Essential (primary) hypertension Status: Acute Assessment and Plan: (4) ESRD on dialysis: Code(s): N18.6 - End stage renal disease; Z99.2 - Dependence on renal dialysis Status: Acute Assessment and Plan: Nephrology consulted (5) Hyperlipidemia: Code(s): E78.5 - Hyperlipidemia, unspecified Status: Acute Assessment and Plan: Continue Atorvastatin. (6) Type 2 diabetes mellitus with hyperglycemia, with long-term current use of insulin: Code(s): E11.65 - Type 2 diabetes mellitus with hyperglycemia; Z79.4 - nursing home (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 of insulin Status: Acute Assessment and Plan: Management of diabetes as per Hospitalist. Subjective Date/time seen: 02/27/24 10:54 Interval history: No acute events Telemetry atrial fibrillation heart rate 100-110 02/27/2024: Telemetry atrial fibrillation generally 90's - low 100's. Currently in the 120's-130's with activity. He does not feel palpitations or shortness of breath. Denies chest pain. Review of Systems Review of Systems: All systems reviewed & are unremarkable except as noted in HPI and below Exam Const: General: no acute distress HENMT: Mouth: Yes moist mucous membranes Eyes: General: appearance normal, both eyes and all related structures Sclera: sclerae normal Resp: Effort & Inspection: normal respiratory effort Auscultation: crackles Cardio: Rate: tachycardic Rhythm: abnormal rhythm irregularly irregular Heart sounds: no murmurs Skin: General skin exam: normal color Other: Bruising noted on arms Neuro: Speech: normal speech Extrem: Other: No edema Psych: Mental Status: mental status grossly normal Affect: normal affect Objective Data Vital Signs Vital Signs: Vital Signs - 24 hr 02/26/24 11:41 02/26/24 12:00 02/26/24 12:00 Temperature 36.9 C Pulse Rate 109 H 109 H 109 H Respiratory Rate 22 H 22 H Blood Pressure 133/84 Pulse Oximetry 94 94 Oxygen Delivery Nasal Cannula Oxygen Flow Rate 2 Fraction of Inspired Oxygen 02/26/24 12:46 02/26/24 15:51 02/26/24 15:51 Temperature Pulse Rate 110 H 110 H 110 H Respiratory Rate 22 H Blood Pressure Pulse Oximetry 94 Oxygen Delivery Nasal Cannula Oxygen Flow Rate 2 Fraction of Inspired Oxygen 02/26/24 15:53 02/26/24 16:50 02/26/24 19:18 Temperature 36.9 C 36.9 C Pulse Rate 110 H 89 104 H Respiratory Rate 20 20 Blood Pressure 128/86 128/86 Pulse Oximetry 99 99 Oxygen Delivery Oxygen Flow Rate Fraction of Inspired Oxygen 02/26/24 20:00 02/26/24 20:00 02/26/24 20:09 Temperature Pulse Rate 110 H 108 H Respiratory Rate Blood Pressure Pulse Oximetry 96 Oxygen Delivery Nasal Cannula Oxygen Flow Rate 2 Fraction of Inspired Oxygen 02/26/24 20:57 02/26/24 21:06 02/26/24 22:00 Temperature Pulse Rate 96 97 94 Respiratory Rate 20 20 Blood Pressure Pulse Oximetry Oxygen Delivery Oxygen Flow Rate Fraction of Inspired Oxygen 02/26/24 23:00 02/27/24 00:00 02/27/24 00:00 Temperature 37.1 C Pulse Rate 108 H 94 Respiratory Rate 27 H 20 Blood Pressure 131/70 Pulse Oximetry 96 100 100 Oxygen Delivery CPAP CPAP Oxygen Flow Rate Fraction of Inspired Oxygen 02/27/24 00:00 02/27/24 01:42 02/27/24 01:43 Temperature Pulse Rate 114 H 86 86 Respiratory Rate 20 17 Blood Pressure Pulse Oximetry 96 Oxygen Delivery CPAP Oxygen Flow Rate Fraction of Inspired Oxygen 02/27/24 01:49 02/27/24 02:00 02/27/24 04:00 Temperature Pulse Rate 89 86 84 Respiratory Rate 20 20 Blood Pressure Pulse Oximetry 94 Oxygen Delivery Nasal Cannula Oxygen Flow Rate 1 Fraction of Inspired Oxygen 02/27/24 04:00 02/27/24 06:00 02/27/24 07:10 Temperature 36.4 C Pulse Rate 84 87 92 Respiratory Rate 20 18 Blood Pressure 127/91 H Pulse Oximetry 94 97 Oxygen Delivery Nasal Cannula Oxygen Flow Rate 2 Fraction of Inspired Oxygen 02/27/24 07:10 02/27/24 07:20 02/27/24 08:00 Temperature 36.5 C Pulse Rate 92 93 93 Respiratory Rate 18 18 24 H Blood Pressure 117/83 Pulse Oximetry 94 Oxygen Delivery Oxygen Flow Rate Fraction of Inspired Oxygen 02/27/24 09:19 Temperature Pulse Rate 110 H Respiratory Rate Blood Pressure Pulse Oximetry Oxygen Delivery Oxygen Flow Rate Fraction of Inspired Oxygen Intake/Output Intake/Output: Intake & Output 02/24/24 02/25/24 02/26/24 02/27/24 23:59 23:59 23:59 23:59 Intake Total 1776.3 2070 1640 500 Output Total 400 2850 300 100 Balance 1376.3 -780 1340 400 Meds/Results Medications: Active Medications Generic Name Dose Route Start Last Admin Trade Name Freq PRN Reason Stop Dose Admin Acetaminophen 650 mg 02/21/24 17:03 Acetaminophen 325 Mg Tablet PO Q6H PRN Mild Pain (1-3) or Fever Albuterol 2.5 mg 02/22/24 08:43 Albuterol Sulfate Neb 2.5 Mg/3 Ml Inh INHALATION Q4HRT PRN Shortness Of Breath Albuterol/Ipratropium 3 ml 02/22/24 14:00 02/27/24 07:10 Ipratropium 0.5 Mg/Albuterol Sulfate 2.5 Mg Ampul.Neb 3 Ml INHALATION 3 ml Q6HRT FAISAL Administration Alprazolam 0.5 mg 02/21/24 23:13 02/26/24 20:24 Alprazolam (*Crx) 0.5 Mg Tablet PO 0.5 mg BID PRN Administration anxiety Apixaban 2.5 mg 02/22/24 10:55 02/27/24 09:18 Apixaban 2.5 Mg Tablet PO 2.5 mg Q12HR FAISAL Administration Atorvastatin Calcium 20 mg 02/22/24 09:00 02/27/24 09:19 Atorvastatin 20 Mg Tablet PO 20 mg DAILY FAISAL Administration Dextrose 12.5 gm 02/21/24 17:04 Dextrose 50% 25 Gm/50 Ml Syringe IV PUSH PRN PRN Hypoglycemia Protocol Diltiazem HCl 360 mg 02/24/24 12:30 02/27/24 09:18 Diltiazem Hcl Cd 180 Mg Cap.24hr PO 360 mg QAM FAISAL Administration Fluticasone/Umeclidinium/Vilanterol 1 puff 02/22/24 09:00 02/27/24 07:11 Fluticasone/Umeclidin/Vilanter 100-62.5-25 Mcg Ellipta INHALATION 1 puff DAILY FAISAL Administration Furosemide 20 mg 02/22/24 09:00 02/27/24 09:18 Furosemide 20 Mg Tablet PO 20 mg QAM FAISAL Administration Glucagon 1 mg 02/21/24 17:04 Glucagon For Inj 1 Mg Vial IM PRN PRN Hypoglycemia Protocol Glucose 15 gm 02/21/24 17:04 Glucose Oral Gel 15 Gm Of Glucse In 37.5 Gm Tube PO PRN PRN Hypoglycemia Protocol Hydralazine HCl 25 mg 02/21/24 23:20 02/27/24 09:18 Hydralazine Hcl 25 Mg Tablet PO 25 mg TID FAISAL Administration Dextrose 1,000 mls @ 100 mls/hr 02/21/24 17:04 Dextrose 5% 1,000 Ml IVPB PRN PRN Hypoglycemia Protocol Ceftriaxone Sodium 2 gm in 100 mls @ 200 mls/hr 02/23/24 19:00 02/26/24 19:35 Rocephin 2 Gm/Ns 100 Ml IVPB 100 mls/hr Q24H FAISAL Administration Azithromycin 500 mg in 250 mls @ 250 mls/hr 02/23/24 20:00 02/26/24 20:09 Zithromax IVPB 250 mls/hr Q24H FAISAL Administration Insulin Aspart 3 - 6 units 02/22/24 08:00 02/27/24 09:17 Insulin Aspart (*Bkc) 100 Units/Ml SUB-Q Not Given TIDWM [facility] Protocol Insulin Aspart 1 - 3 units 02/21/24 21:00 02/26/24 20:29 Insulin Aspart (*Bkc) 100 Units/Ml SUB-Q 1 units HS FAISAL Administration Protocol Insulin Glargine 17 units 02/22/24 21:00 02/26/24 20:29 Insulin Glargine (*Bkc) 100 Units/Ml SUB-Q 17 units HS FAISAL Administration Latanoprost 1 drop 02/21/24 23:25 02/26/24 13:40 Latanoprost 0.005% Op Soln 2.5 Ml Btl EACH EYE 1 drop QPM FAISAL Administration Metolazone 5 mg 02/22/24 09:00 02/27/24 09:18 Metolazone 5 Mg Tablet BY MOUTH 5 mg DAILY FAISAL Administration Metoprolol Succinate 200 mg 02/25/24 21:00 02/27/24 09:19 Metoprolol Succinate Ext Rel 100 Mg Tabcr PO 200 mg Q12HR FAISAL Administration Pantoprazole Sodium 40 mg 02/21/24 23:25 02/27/24 09:18 Pantoprazole 40 Mg Tablet PO 40 mg BID FAISAL Administration Tramadol/Acetaminophen 1 tab 02/21/24 23:13 02/26/24 20:24 Tramadol/Acetaminophen (*Crx) (Ultracet) 37.5/325 Mg Tablet PO 1 tab Q6H PRN Administration PAIN RATED 4-6 Radiology Results: ITS Impressions Chest X-Ray 02/21/24 12:21 IMPRESSION: Bilateral basal pneumonia. Cardiomegaly with cardiac decompensation and pulmonary edema is not excluded. Bilateral interstitial pneumonitis is also possible. Venous Doppler Study 02/22/24 08:54 IMPRESSION: Negative bilateral lower extremity venous US. No deep vein thrombosis. Labs Labs: Laboratory Results - last 24 hr 02/26/24 02/26/24 02/26/24 10:41 11:25 16:31 WBC RBC Hgb Hct MCV MCH MCHC RDW Plt Count MPV Immature Gran % (Auto) Neut % (Auto) Lymph % (Auto) [place] % (Auto) Eos % (Auto) Baso % (Auto) Lymph # (Auto) [place] # (Auto) Eos # (Auto) Baso # (Auto) Abs Immat Gran (auto) Absolute Neuts (auto) Absolute Nucleated RBC Nucleated RBC % Sodium 136 L Potassium 4.2 Chloride 102 Carbon Dioxide 26 Anion Gap 8 BUN 35 H D Creatinine 3.35 H Estim Creat Clear Calc 19 Estimated GFR 18 L Glucose 206 H POC Capillary Glucose 199 H 153 H Calcium 8.7 Magnesium 02/26/24 02/27/24 02/27/24 20:28 08:00 08:05 WBC 9.9 RBC 3.24 L Hgb 11.1 L Hct 33.0 L MCV 101.9 H MCH 34.3 H MCHC 33.6 RDW 13.1 Plt Count 241 MPV 8.6 Immature Gran % (Auto) 0.6 H Neut % (Auto) 78.2 H Lymph % (Auto) 7.5 L [place] % (Auto) 9.2 H Eos % (Auto) 3.5 Baso % (Auto) 1.0 Lymph # (Auto) 0.74 L [place] # (Auto) 0.9 H Eos # (Auto) 0.4 H Baso # (Auto) 0.1 Abs Immat Gran (auto) 0.06 H Absolute Neuts (auto) 7.7 H Absolute Nucleated RBC 0.000 Nucleated RBC % 0.0 Sodium 136 L Potassium 4.5 Chloride 100 Carbon Dioxide 26 Anion Gap 10 BUN 47 H D Creatinine 4.12 H Estim Creat Clear Calc 16 Estimated GFR 14 L Glucose 135 H POC Capillary Glucose 217 H 128 H Calcium 9.2 Magnesium 2.0 Quality VTE Prophylaxis VTE prophylaxis: mechanical ordered and pharmacologic ordered
[2024-02-27 12:23] LABS: Glucose Point of Care 181 mg/dl (65-105)
[2024-02-27 16:25] LABS: Glucose Point of Care 176 mg/dl (65-105)
--- NOTE | 2024-02-27 16:44 | P.PNNP_ITS ---
Progress Note: A&P Assessment and Plan (1) ESRD on dialysis: Code(s): N18.6 - End stage renal disease; Z99.2 - Dependence on renal dialysis Status: Acute Assessment and Plan: * End-stage renal disease * Hypertensive renal disease and renal failure * Anemia chronic kidney disease * Secondary hyperparathyroidism * Admitted with atrial fibrillation and rapid ventricular response with shortness of breath. * Patient is being treated for pneumonia as well. Plan --dialysis tomorrow morning once listed February 28, 2024 - discussed with patient plan, keep on a TTS schedule - atrial fibrillation:treatment plans per Cardiology. 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 Heart rate control in progress, tachycardia is better. On antibiotics, anticoagulation. - antibiotics per hospitalist team course is getting complete -discharge planning in progress Subjective Date/time seen: 02/27/24 16:44 Interval history: Chief complaint follow-up CKD 6/ESRD Review of Systems Review of Systems: Yanet feeling better, no shortness for breath. Heart rate under better control. He is being anticoagulated Exam Narrative: Vital signs as noted Elderly, comfortable with breathing at rest, skin turgor normal, no pallor, no cyanosis, moist oral mucosa JVD at the cecum irregular rhythm rate, borderline tachycardic, no gallop, no rub, equal breath sounds: Diminished breath sounds, no rales or wheeze, soft nontender abdomen, no masses, no edema lower extremities, alert oriented x3, no tremors Objective Data Vital Signs Vital Signs: Vital Signs - 24 hr 02/26/24 16:50 02/26/24 19:18 02/26/24 20:00 Temperature 36.9 C 36.9 C Pulse Rate 89 104 H 110 H Respiratory Rate 20 20 Blood Pressure 128/86 128/86 Pulse Oximetry 99 99 Oxygen Delivery Oxygen Flow Rate Fraction of Inspired Oxygen 02/26/24 20:00 02/26/24 20:09 02/26/24 20:57 Temperature Pulse Rate 108 H 96 Respiratory Rate 20 Blood Pressure Pulse Oximetry 96 Oxygen Delivery Nasal Cannula Oxygen Flow Rate 2 Fraction of Inspired Oxygen 02/26/24 21:06 02/26/24 22:00 02/26/24 23:00 Temperature Pulse Rate 97 94 108 H Respiratory Rate 20 27 H Blood Pressure Pulse Oximetry 96 Oxygen Delivery CPAP Oxygen Flow Rate Fraction of Inspired Oxygen 02/27/24 00:00 02/27/24 00:00 02/27/24 00:00 Temperature 37.1 C Pulse Rate 94 114 H Respiratory Rate 20 Blood Pressure 131/70 Pulse Oximetry 100 100 Oxygen Delivery CPAP Oxygen Flow Rate Fraction of Inspired Oxygen 24 02/27/24 01:42 02/27/24 01:43 02/27/24 01:49 Temperature Pulse Rate 86 86 89 Respiratory Rate 20 17 20 Blood Pressure Pulse Oximetry 96 Oxygen Delivery CPAP Oxygen Flow Rate Fraction of Inspired Oxygen 02/27/24 02:00 02/27/24 04:00 02/27/24 04:00 Temperature 36.4 C Pulse Rate 86 84 84 Respiratory Rate 20 20 Blood Pressure 127/91 H Pulse Oximetry 94 94 Oxygen Delivery Nasal Cannula Oxygen Flow Rate 1 Fraction of Inspired Oxygen 02/27/24 06:00 02/27/24 07:10 02/27/24 07:10 Temperature Pulse Rate 87 92 92 Respiratory Rate 18 18 Blood Pressure Pulse Oximetry 97 Oxygen Delivery Nasal Cannula Oxygen Flow Rate 2 Fraction of Inspired Oxygen 02/27/24 07:20 02/27/24 08:00 02/27/24 08:00 Temperature 36.5 C Pulse Rate 93 93 117 H Respiratory Rate 18 24 H Blood Pressure 117/83 Pulse Oximetry 94 Oxygen Delivery Oxygen Flow Rate Fraction of Inspired Oxygen 02/27/24 09:19 02/27/24 10:00 02/27/24 12:00 Temperature 36.6 C Pulse Rate 110 H 118 H 118 H Respiratory Rate 20 Blood Pressure 148/84 H Pulse Oximetry 98 Oxygen Delivery Oxygen Flow Rate Fraction of Inspired Oxygen 02/27/24 12:00 02/27/24 14:00 02/27/24 14:45 Temperature Pulse Rate 111 H 106 H 105 H Respiratory Rate 20 Blood Pressure Pulse Oximetry Oxygen Delivery Oxygen Flow Rate Fraction of Inspired Oxygen 02/27/24 14:55 Temperature Pulse Rate 101 H Respiratory Rate 20 Blood Pressure Pulse Oximetry Oxygen Delivery Oxygen Flow Rate Fraction of Inspired Oxygen Intake/Output Intake/Output: Intake & Output 02/24/24 02/25/24 02/26/24 02/27/24 23:59 23:59 23:59 23:59 Intake Total 1776.3 2070 1640 980 Output Total 400 2850 300 100 Balance 1376.3 -780 1340 880 Meds/Results Medications: Active Medications Generic Name Dose Route Start Last Admin Trade Name Freq PRN Reason Stop Dose Admin Acetaminophen 650 mg 02/21/24 17:03 Acetaminophen 325 Mg Tablet PO Q6H PRN Mild Pain (1-3) or Fever Albuterol 2.5 mg 02/22/24 08:43 Albuterol Sulfate Neb 2.5 Mg/3 Ml Inh INHALATION Q4HRT PRN Shortness Of Breath Albuterol/Ipratropium 3 ml 02/22/24 14:00 02/27/24 14:41 Ipratropium 0.5 Mg/Albuterol Sulfate 2.5 Mg Ampul.Neb 3 Ml INHALATION 3 ml Q6HRT FAISAL Administration Alprazolam 0.5 mg 02/21/24 23:13 02/26/24 20:24 Alprazolam (*Crx) 0.5 Mg Tablet PO 0.5 mg BID PRN Administration anxiety Amoxicillin/Clavulanate Potassium 1 tablet 02/27/24 20:00 Amoxicillin/Clavulanate K 500-125 Mg Tab PO 02/29/24 09:01 Q12HR FAISAL Apixaban 2.5 mg 02/22/24 10:55 02/27/24 09:18 Apixaban 2.5 Mg Tablet PO 2.5 mg Q12HR FAISAL Administration Atorvastatin Calcium 20 mg 02/22/24 09:00 02/27/24 09:19 Atorvastatin 20 Mg Tablet PO 20 mg DAILY FAISAL Administration Dextrose 12.5 gm 02/21/24 17:04 Dextrose 50% 25 Gm/50 Ml Syringe IV PUSH PRN PRN Hypoglycemia Protocol Diltiazem HCl 360 mg 02/24/24 12:30 02/27/24 09:18 Diltiazem Hcl Cd 180 Mg Cap.24hr PO 360 mg QAM FAISAL Administration Fluticasone/Umeclidinium/Vilanterol 1 puff 02/22/24 09:00 02/27/24 07:11 Fluticasone/Umeclidin/Vilanter 100-62.5-25 Mcg Ellipta INHALATION 1 puff DAILY FAISAL Administration Furosemide 20 mg 02/22/24 09:00 02/27/24 09:18 Furosemide 20 Mg Tablet PO 20 mg QAM FAISAL Administration Glucagon 1 mg 02/21/24 17:04 Glucagon For Inj 1 Mg Vial IM PRN PRN Hypoglycemia Protocol Glucose 15 gm 02/21/24 17:04 Glucose Oral Gel 15 Gm Of Glucse In 37.5 Gm Tube PO PRN PRN Hypoglycemia Protocol Heparin Sodium (Porcine) 1,000 units 02/28/24 09:00 Heparin Sodium 1,000 Units/Ml Vial IV PUSH 02/28/24 09:01 ONCE ONE Heparin Sodium (Porcine) 500 units 02/28/24 09:00 Heparin Sodium 1,000 Units/Ml Vial IV PUSH 02/28/24 10:01 Q1H FAISAL Hydralazine HCl 25 mg 02/21/24 23:20 02/27/24 12:07 Hydralazine Hcl 25 Mg Tablet PO 25 mg TID FAISAL Administration Dextrose 1,000 mls @ 100 mls/hr 02/21/24 17:04 Dextrose 5% 1,000 Ml IVPB PRN PRN Hypoglycemia Protocol Sodium Chloride 1,000 mls @ 999 mls/hr 02/28/24 09:00 Normal Saline Iv IV CONT 02/28/24 10:00 .Q1H1M ONE Sodium Chloride 1,000 mls @ 0 mls/hr 02/28/24 09:00 Normal Saline Iv IV CONT 02/28/24 09:01 .Q0M ONE Per Protocol Albumin Human 100 mls @ 60 mls/hr 02/28/24 09:00 Albutein IVPB 02/28/24 10:39 ONCE ONE Insulin Aspart 3 - 6 units 02/22/24 08:00 02/27/24 12:06 Insulin Aspart (*Bkc) 100 Units/Ml SUB-Q Not Given TIDWM FAISAL Protocol Insulin Aspart 1 - 3 units 02/21/24 21:00 02/26/24 20:29 Insulin Aspart (*Bkc) 100 Units/Ml SUB-Q 1 units HS FAISAL Administration Protocol Insulin Glargine 17 units 02/22/24 21:00 02/26/24 20:29 Insulin Glargine (*Bkc) 100 Units/Ml SUB-Q 17 units HS FAISAL Administration Latanoprost 1 drop 02/21/24 23:25 02/26/24 13:40 Latanoprost 0.005% Op Soln 2.5 Ml Btl EACH EYE 1 drop QPM FAISAL Administration Metolazone 5 mg 02/22/24 09:00 02/27/24 09:18 Metolazone 5 Mg Tablet BY MOUTH 5 mg DAILY FAISAL Administration Metoprolol Succinate 200 mg 02/25/24 21:00 02/27/24 09:19 Metoprolol Succinate Ext Rel 100 Mg Tabcr PO 200 mg Q12HR FAISAL Administration Pantoprazole Sodium 40 mg 02/21/24 23:25 02/27/24 09:18 Pantoprazole 40 Mg Tablet PO 40 mg BID FAISAL Administration Tramadol/Acetaminophen 1 tab 02/21/24 23:13 02/26/24 20:24 Tramadol/Acetaminophen (*Crx) (Ultracet) 37.5/325 Mg Tablet PO 1 tab Q6H PRN Administration PAIN RATED 4-6 Radiology Results: ITS Impressions Chest X-Ray 02/21/24 12:21 IMPRESSION: Bilateral basal pneumonia. Cardiomegaly with cardiac decompensation and pulmonary edema is not excluded. Bilateral interstitial pneumonitis is also possible. Venous Doppler Study 02/22/24 08:54 IMPRESSION: Negative bilateral lower extremity venous US. No deep vein thrombosis. Labs Labs: Laboratory Results - last 24 hr 02/26/24 02/27/24 02/27/24 20:28 08:00 08:05 WBC 9.9 RBC 3.24 L Hgb 11.1 L Hct 33.0 L MCV 101.9 H MCH 34.3 H MCHC 33.6 RDW 13.1 Plt Count 241 MPV 8.6 Immature Gran % (Auto) 0.6 H Neut % (Auto) 78.2 H Lymph % (Auto) 7.5 L Terrell % (Auto) 9.2 H Eos % (Auto) 3.5 Baso % (Auto) 1.0 Lymph # (Auto) 0.74 L Terrell # (Auto) 0.9 H Eos # (Auto) 0.4 H Baso # (Auto) 0.1 Abs Immat Gran (auto) 0.06 H Absolute Neuts (auto) 7.7 H Absolute Nucleated RBC 0.000 Nucleated RBC % 0.0 Sodium 136 L Potassium 4.5 Chloride 100 Carbon Dioxide 26 Anion Gap 10 BUN 47 H D Creatinine 4.12 H Estim Creat Clear Calc 16 Estimated GFR 14 L Glucose 135 H POC Capillary Glucose 217 H 128 H Calcium 9.2 Magnesium 2.0 02/27/24 02/27/24 11:36 16:14 WBC RBC Hgb Hct MCV MCH MCHC RDW Plt Count MPV Immature Gran % (Auto) Neut % (Auto) Lymph % (Auto) Terrell % (Auto) Eos % (Auto) Baso % (Auto) Lymph # (Auto) Terrell # (Auto) Eos # (Auto) Baso # (Auto) Abs Immat Gran (auto) Absolute Neuts (auto) Absolute Nucleated RBC Nucleated RBC % Sodium Potassium Chloride Carbon Dioxide Anion Gap BUN Creatinine Estim Creat Clear Calc Estimated GFR Glucose POC Capillary Glucose 181 H 176 H Calcium Magnesium
[2024-02-27] MEDS: LATANOPROST 0.005% OP SOLN 2.5 ML BTL 1 DROP EACH EYE (17:16)
[2024-02-27 20:14] LABS: Glucose Point of Care 157 mg/dl (65-105)
[2024-02-27] MEDS: AMOXICILLIN/CLAVULANATE K 500-125 MG TAB 1 TABLET PO (20:19)
[2024-02-27] MEDS: traMADol/ACETAMINOPHEN (*CRX) (ULTRACET) 37.5/325 MG TABLET 1 TAB PO (20:21)
[2024-02-27] MEDS: INSULIN GLARGINE (*BKC) 100 UNITS/ML 17 UNITS SUB-Q (20:22)
[2024-02-28] VITALS (41 sets, daily range): BP systolic 101–162; BP diastolic 48–112; PULSE 80–159; RESP 16–27; TEMP 36.4–37.8; O2SAT 93–100
[2024-02-28] MEDS: IPRATROPIUM 0.5 MG/ALBUTEROL SULFATE 2.5 MG AMPUL.NEB 3 ML INHALATION ×3 (01:35→20:40)
[2024-02-28 08:15] LABS: Glucose Point of Care 130 mg/dl (65-105)
[2024-02-28] MEDS: FLUTICASONE/UMECLIDIN/VILANTER 100-62.5-25 MCG ELLIPTA 1 PUFF INHALATION (08:16)
[2024-02-28] MEDS: AMOXICILLIN/CLAVULANATE K 500-125 MG TAB 1 TABLET PO ×2 (08:31→22:50)
[2024-02-28] MEDS: hydrALAZINE HCL 25 MG TABLET PO ×2 (08:31→18:40)
[2024-02-28] MEDS: ATORVASTATIN 20 MG TABLET PO (08:31)
[2024-02-28] MEDS: PANTOPRAZOLE 40 MG TABLET PO ×2 (08:32→18:40)
[2024-02-28] MEDS: FUROSEMIDE 20 MG TABLET PO (08:32)
[2024-02-28] MEDS: METOPROLOL SUCCINATE EXT REL 100 MG TABCR 200 MG PO ×2 (08:32→22:50)
[2024-02-28] MEDS: APIXABAN 2.5 MG TABLET PO ×2 (08:32→22:50)
[2024-02-28] MEDS: dilTIAZem HCL CD 180 MG CAP.24HR 360 MG PO (08:32)
[2024-02-28] MEDS: metOLazone 5 MG TABLET BY MOUTH (08:33)
--- NOTE | 2024-02-28 09:50 | PM.IMPN ---
Progress Note: A&P Assessment and Plan (1) Atrial fibrillation with rapid ventricular response: Code(s): I48.91 - Unspecified atrial fibrillation Status: Acute (2) Hypomagnesemia: Code(s): E83.42 - Hypomagnesemia Status: Acute (3) Hypertension: Code(s): I10 - Essential (primary) hypertension Status: Acute (4) End-stage renal disease on hemodialysis: Code(s): N18.6 - End stage renal disease; Z99.2 - Dependence on renal dialysis Status: Acute (5) Chronic obstructive pulmonary disease: Qualifiers: COPD type: unspecified COPD Qualified Code(s): J44.9 - Chronic obstructive pulmonary disease, unspecified Code(s): J44.9 - Chronic obstructive pulmonary disease, unspecified Status: Acute (6) Obstructive sleep apnea: Code(s): G47.33 - Obstructive sleep apnea (adult) (pediatric) Status: Acute (7) Insulin dependent diabetes mellitus: Status: Acute Plan This is a very pleasant 83-year-old male with paroxysmal atrial fibrillation no longer on chronic anticoagulation due to GI bleeding, duodenal ulcers, 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 proBNP 21,200, troponin 0.019. Chest x-ray showed bibasilar pneumonia and cardiomegaly with probable pulmonary edema. AFib RVR The patient presented to the emergency department from his battery tester's office for evaluation after he was found to be in rapid atrial fibrillation Patient mentions that his heart rate has been quite high for the past 1 week associated with shortness breath. Chest x-ray shows pulmonary edema, He was started on a diltiazem drip in the ED with some improvement in his rates. He is only on 25 mg of metoprolol succinate today which can be titrated up for better rate control. For now we will increase that to 50 mg daily and decrease clonidine to 0.1 mg daily and adjust as needed. not on anticoagulation due to history of bleeding ulcers and gastritis Appreciate cardiology consultation, can't perform electrical cardioversion Increase metoprolol to 200 mg b.i.d. p.o., Cardizem 360 mg daily, Eliquis 5 mg b.i.d. per cardio Review still not controlled, Will transfer to [facility] for evaluation treatment per battery tester request left atrial appendage thrombus on RODNEY in 2020 Patient may need anticoagulation Follow-up cardiology recommendation End-stage renal disease on hemodialysis Consult railroad dining car stewardess for dialysis Chest x-ray shows pulmonary congestion Management per railroad dining car stewardess Acute on chronic diastolic heart failure echo: 1. Technically difficult study with limited views. 2. Left ventricular chamber dimension is normal. 3. Left ventricular systolic function is normal, estimated at 65-70%. 4. There is mildly increased left ventricular wall thickness. 5. Left atrial chamber dimension is moderately enlarged. 6. There is mild tricuspid valve regurgitation. Patient's shortness breath, x-ray shows pulmonary congestion Received IV furosemide May need more dialysis COPD exacerbation Patient leukocytosis 13,700 upon arrival in the ED, X-ray shows bilateral basal pneumonia Start DuoNeb scheduled, albuterol nebulizer p.r.n. Follow-up VBG on azithromycin ceftriaxone IV Type 2 diabetes Continue basal insulin and initiate sliding scale insulin, Accu-Cheks, and hypoglycemic protocol. controlled Chronic anemia Stable Possible due to end-stage renal disease General weakness He patient has difficulty with ambulation. Physical deconditioning due to comorbidities and recent acute illness Consult PT OT career development coordinator for evaluation and assisting placement Patient may benefit from rehab in a senior living Subjective Date/time seen: 02/28/24 09:50 Interval history: I saw and examined patient today. Patient denies palpitation, heart rate is better control, telemetry showed AFib, heart rate still above 100 -150most time. Patient denies lightheadedness, shortness breast improving. Patient denies abdomen pain nausea vomiting diarrhea.Telemetry atrial fibrillation heart rate is controlled. has general weakness, has difficult to ambulate. Exam Narrative: GENERAL: Ill-appearing, in no acute distress. Well-nourished. - EYES: EOMI. Anicteric. - HENT: Moist mucous membranes. - LUNGS: Coarse breath sound bilaterally, tachypnea . - CARDIOVASCULAR: Irregular irregular rhythm, tachycardia. No murmur. No JVD. - ABDOMEN: Soft, non-tender and non-distended. No palpable masses. - EXTREMITIES: No edema. Peripheral pulses 2+. Non-tender. - NEUROLOGIC: No focal neurological deficits. CN II-XII grossly intact. General weakness - PSYCHIATRIC: Awake, Alert and oriented x 3. Appropriate mood and affect. - SKIN: No rashes or lesions. Warm. - LYMPH: No cervical lymphadenopathy. Objective Data Vital Signs Vital Signs: Vital Signs - 24 hr 02/27/24 10:00 02/27/24 12:00 02/27/24 12:00 Temperature 97.8 F Pulse Rate 118 H 118 H 111 H Respiratory Rate 20 Blood Pressure 148/84 H Pulse Oximetry 98 Oxygen Delivery Oxygen Flow Rate Fraction of Inspired Oxygen 02/27/24 14:00 02/27/24 14:45 02/27/24 14:55 Temperature Pulse Rate 106 H 105 H 101 H Respiratory Rate 20 20 Blood Pressure Pulse Oximetry Oxygen Delivery Oxygen Flow Rate Fraction of Inspired Oxygen 02/27/24 16:00 02/27/24 16:00 02/27/24 19:47 Temperature 97.9 F 98.0 F Pulse Rate 71 111 H 102 H Respiratory Rate 20 20 Blood Pressure 133/61 149/83 H Pulse Oximetry 96 93 Oxygen Delivery Oxygen Flow Rate Fraction of Inspired Oxygen 02/27/24 20:00 02/27/24 20:00 02/27/24 20:19 Temperature Pulse Rate 126 H 109 H Respiratory Rate Blood Pressure Pulse Oximetry 99 Oxygen Delivery High Flow Nasal Cannula Oxygen Flow Rate 2 Fraction of Inspired Oxygen 02/27/24 20:38 02/27/24 20:38 02/27/24 20:47 Temperature Pulse Rate 103 H 98 Respiratory Rate 20 20 Blood Pressure Pulse Oximetry 94 Oxygen Delivery Nasal Cannula Oxygen Flow Rate 1 Fraction of Inspired Oxygen 02/27/24 22:41 02/27/24 22:41 02/27/24 23:59 Temperature 97.7 F Pulse Rate 105 H 118 H Respiratory Rate 22 H 20 Blood Pressure 142/76 H Pulse Oximetry 95 95 92 Oxygen Delivery CPAP CPAP Oxygen Flow Rate Fraction of Inspired Oxygen 02/28/24 00:00 02/28/24 01:36 02/28/24 01:36 Temperature Pulse Rate 112 H 115 H 115 H Respiratory Rate 20 20 Blood Pressure Pulse Oximetry 95 Oxygen Delivery CPAP Oxygen Flow Rate Fraction of Inspired Oxygen 02/28/24 01:44 02/28/24 04:00 02/28/24 04:28 Temperature 97.8 F Pulse Rate 99 88 102 H Respiratory Rate 20 20 Blood Pressure 148/54 H Pulse Oximetry 94 Oxygen Delivery Oxygen Flow Rate Fraction of Inspired Oxygen 02/28/24 08:00 02/28/24 08:16 02/28/24 08:17 Temperature 97.6 F Pulse Rate 80 99 Respiratory Rate 24 H 20 Blood Pressure 141/56 H Pulse Oximetry 99 94 Oxygen Delivery Nasal Cannula Oxygen Flow Rate 2 Fraction of Inspired Oxygen 02/28/24 08:30 02/28/24 08:32 Temperature Pulse Rate 102 H 96 Respiratory Rate 20 Blood Pressure Pulse Oximetry Oxygen Delivery Oxygen Flow Rate Fraction of Inspired Oxygen Intake/Output Intake/Output: Intake & Output 02/25/24 02/26/24 02/27/24 02/28/24 23:59 23:59 23:59 23:59 Intake Total 2070 1640 1620 240 Output Total 2850 300 300 200 Balance -780 1340 1320 40 Meds/Results Medications: Active Medications Generic Name Dose Route Start Last Admin Trade Name Freq PRN Reason Stop Dose Admin Acetaminophen 650 mg 02/21/24 17:03 Acetaminophen 325 Mg Tablet PO Q6H PRN Mild Pain (1-3) or Fever Albuterol 2.5 mg 02/22/24 08:43 Albuterol Sulfate Neb 2.5 Mg/3 Ml Inh INHALATION Q4HRT PRN Shortness Of Breath Albuterol/Ipratropium 3 ml 02/22/24 14:00 02/28/24 08:16 Ipratropium 0.5 Mg/Albuterol Sulfate 2.5 Mg Ampul.Neb 3 Ml INHALATION 3 ml Q6HRT FAISAL Administration Alprazolam 0.5 mg 02/21/24 23:13 02/26/24 20:24 Alprazolam (*Crx) 0.5 Mg Tablet PO 0.5 mg BID PRN Administration anxiety Amoxicillin/Clavulanate Potassium 1 tablet 02/27/24 20:00 02/28/24 08:31 Amoxicillin/Clavulanate K 500-125 Mg Tab PO 02/29/24 09:01 1 tablet Q12HR FAISAL Administration Apixaban 2.5 mg 02/22/24 10:55 02/28/24 08:32 Apixaban 2.5 Mg Tablet PO 2.5 mg Q12HR FAISAL Administration Atorvastatin Calcium 20 mg 02/22/24 09:00 02/28/24 08:31 Atorvastatin 20 Mg Tablet PO 20 mg DAILY FAISAL Administration Dextrose 12.5 gm 02/21/24 17:04 Dextrose 50% 25 Gm/50 Ml Syringe IV PUSH PRN PRN Hypoglycemia Protocol Diltiazem HCl 360 mg 02/24/24 12:30 02/28/24 08:32 Diltiazem Hcl Cd 180 Mg Cap.24hr PO 360 mg QAM FAISAL Administration Fluticasone/Umeclidinium/Vilanterol 1 puff 02/22/24 09:00 02/28/24 08:16 Fluticasone/Umeclidin/Vilanter 100-62.5-25 Mcg Ellipta INHALATION 1 puff DAILY FAISAL Administration Furosemide 20 mg 02/22/24 09:00 02/28/24 08:32 Furosemide 20 Mg Tablet PO 20 mg QAM FAISAL Administration Glucagon 1 mg 02/21/24 17:04 Glucagon For Inj 1 Mg Vial IM PRN PRN Hypoglycemia Protocol Glucose 15 gm 02/21/24 17:04 Glucose Oral Gel 15 Gm Of Glucse In 37.5 Gm Tube PO PRN PRN Hypoglycemia Protocol Heparin Sodium (Porcine) 500 units 02/28/24 09:00 Heparin Sodium 1,000 Units/Ml Vial IV PUSH 02/28/24 10:01 Q1H FAISAL Hydralazine HCl 25 mg 02/21/24 23:20 02/28/24 08:31 Hydralazine Hcl 25 Mg Tablet PO 25 mg TID FAISAL Administration Dextrose 1,000 mls @ 100 mls/hr 02/21/24 17:04 Dextrose 5% 1,000 Ml IVPB PRN PRN Hypoglycemia Protocol Sodium Chloride 1,000 mls @ 999 mls/hr 02/28/24 09:00 Normal Saline Iv IV CONT 02/28/24 10:00 .Q1H1M ONE Albumin Human 100 mls @ 60 mls/hr 02/28/24 09:00 Albutein IVPB 02/28/24 10:39 ONCE ONE Insulin Aspart 3 - 6 units 02/22/24 08:00 02/28/24 08:06 Insulin Aspart (*Bkc) 100 Units/Ml SUB-Q Not Given TIDWM FAISAL Protocol Insulin Aspart 1 - 3 units 02/21/24 21:00 02/27/24 20:19 Insulin Aspart (*Bkc) 100 Units/Ml SUB-Q Not Given HS [facility] Protocol Insulin Glargine 17 units 02/22/24 21:00 02/27/24 20:22 Insulin Glargine (*Bkc) 100 Units/Ml SUB-Q 17 units HS FAISAL Administration Latanoprost 1 drop 02/21/24 23:25 02/27/24 17:16 Latanoprost 0.005% Op Soln 2.5 Ml Btl EACH EYE 1 drop QPM FAISAL Administration Metolazone 5 mg 02/22/24 09:00 02/28/24 08:33 Metolazone 5 Mg Tablet BY MOUTH 5 mg DAILY FAISAL Administration Metoprolol Succinate 200 mg 02/25/24 21:00 02/28/24 08:32 Metoprolol Succinate Ext Rel 100 Mg Tabcr PO 200 mg Q12HR FAISAL Administration Pantoprazole Sodium 40 mg 02/21/24 23:25 02/28/24 08:32 Pantoprazole 40 Mg Tablet PO 40 mg BID FAISAL Administration Tramadol/Acetaminophen 1 tab 02/21/24 23:13 02/27/24 20:21 Tramadol/Acetaminophen (*Crx) (Ultracet) 37.5/325 Mg Tablet PO 1 tab Q6H PRN Administration PAIN RATED 4-6 Radiology Results: ITS Impressions Chest X-Ray 02/21/24 12:21 IMPRESSION: Bilateral basal pneumonia. Cardiomegaly with cardiac decompensation and pulmonary edema is not excluded. Bilateral interstitial pneumonitis is also possible. Venous Doppler Study 02/22/24 08:54 IMPRESSION: Negative bilateral lower extremity venous US. No deep vein thrombosis. Labs Labs: Laboratory Results - last 24 hr 02/27/24 02/27/24 02/27/24 11:36 16:14 19:54 POC Capillary Glucose 181 H 176 H 157 H 02/28/24 08:06 POC Capillary Glucose 130 H
--- NOTE | 2024-02-28 09:52 | PM.DS ---
DS: Summary Time Spent with Patient Time attestation: Total time spent providing and/or coordinating discharge services: DS: Data Data Completed and Pending Labs on day of discharge: Labs from last 24 hours 02/28/24 02/27/24 02/27/24 08:06 19:54 16:14 POC Capillary Glucose 130 H 157 H 176 H 02/27/24 11:36 POC Capillary Glucose 181 H Discharge Plan Discharge Consulting providers: Pj Abreu; Itz Boyd Patient Instructions: Heparin/Sodium Chloride (By injection), Heart Failure (GEN) Patient Language: [place] Discharge Medications: No Action albuterol sulfate 90 mcg/actuation HFA aerosol inhaler 1 - 2 puff inhalation Q4-6H PRN (Reason: shortness of breath or wheezing) Qty: 25.5 1RF furosemide 20 mg tablet 20 mg PO QAM latanoprost 0.005 % drops 1 drop EACH EYE QPM Rx Instructions: install 1 drop in each eye @ bedtime alcohol swabs [Alcohol Prep Pads] Pads, Medicated 1 pad topical TID Qty: 100 3RF (DME) blood-glucose meter [OneTouch Ultra2 Meter] Misc See Rx Instructions .ROUTE .COMPLEX Qty: 1 0RF Dose Instruction: USE DIRECTED TO TEST 3 TIMES DAILY Rx Instructions: USE DIRECTED TO TEST 3 TIMES DAILY (DME) EasyMax Strip See Rx Instructions .ROUTE .COMPLEX Qty: 300 3RF Dose Instruction: TESTS 3X PER DAY Rx Instructions: TESTS 3X PER DAY (DME) lancets [Easy Touch Twist Lancets] 30 gauge misc See Rx Instructions .Route Qty: 300 3RF Rx Instructions: test tid hydralazine 25 mg tablet 25 mg PO TID Qty: 270 2RF atorvastatin 20 mg tablet 20 mg PO DAILY Qty: 90 2RF clonidine HCl 0.1 mg tablet 0.1 mg PO BID Qty: 180 2RF metoprolol succinate 25 mg tablet extended release 24 hr 25 mg PO DAILY Qty: 30 0RF pantoprazole 40 mg tablet,delayed release (DR/EC) 40 mg PO BID Qty: 180 2RF (DME) pen needle, diabetic [UltiCare Pen Needle] 32 gauge x 5/32 needle See Rx Instructions .ROUTE .MEDSUPPLY Qty: 100 4RF Rx Instructions: As directed to administer insulin once daily insulin glargine [Lantus Solostar U-100 Insulin] 100 unit/mL (3 mL) insulin pen See Rx Instructions .ROUTE .COMPLEX Qty: 15 1RF Dose Instruction: INJECT 10 UNITS UNDER THE SKIN AT BEDTIME Rx Instructions: INJECT 17 UNITS UNDER THE SKIN AT BEDTIME Treledeepti Ellipta 100-62.5-25 mcg blister with device See Rx Instructions .ROUTE .COMPLEX Qty: 180 3RF Dose Instruction: USE 1 INHALATION DAILY Rx Instructions: USE 1 INHALATION DAILY. Rinse mouth and spit after each use amlodipine 10 mg tablet See Rx Instructions .ROUTE .COMPLEX Qty: 90 3RF Dose Instruction: TAKE 1 TABLET DAILY Rx Instructions: TAKE 1 TABLET DAILY metolazone 5 mg tablet See Rx Instructions .ROUTE .COMPLEX Qty: 90 2RF Dose Instruction: TAKE 1 TABLET DAILY Rx Instructions: TAKE 1 TABLET DAILY alprazolam [Xanax] 0.5 mg tablet 0.5 mg PO BID PRN (Reason: anxiety) Qty: 60 0RF tramadol-acetaminophen 37.5-325 mg tablet 1 tablet PO Q6H PRN (Reason: pain) Qty: 120 0RF Date of admission: 02/22/24 10:44 Primary Care Provider: Santi Roy Admitting Provider: Jeffery Day Attending physician on admission: Jeffery Day Condition: Serious
[2024-02-28 10:06] LABS: Basophils Absolute Auto 0.1 K/mm3 (0.0-0.1); Basophils Percent Auto 0.8 % (0.2-1.2); Eosinophils Absolute Auto 0.4 K/mm3 (0-0.3); Eosinophils Percent Auto 3.5 % (0-4.4); Hematocrit 32.1 % (42.0-52.0); Hemoglobin 10.8 g/dL (14.0-18.0); Immature Granulocyte Absolute 0.05 K/mm3 (0.00-0.031); Immature Granulocyte Percent A 0.5 % (0-0.5); Lymphocytes Absolute Auto 0.39 K/mm3 (0.9-3.2); Lymphocytes Percent Auto 3.9 % (18.3-44.2); Mean Corpuscular HGB Conc 33.6 g/dl (32-36); Mean Corpuscular Hemoglobin 33.6 pg (26-34); Mean Platelet Volume 8.6 fl (7.4-10.4); Monocytes Absolute Auto 0.8 K/mm3 (0.1-0.6); Monocytes Percent Auto 7.6 % (2.6-8.5); Neutrophils Absolute Auto 8.4 K/mm3 (1.3-6.7); Neutrophils Percent Auto 83.7 % (45.5-73.1); Platelet Count Result 259 k/mm3 (150-375); Red Blood Count 3.21 M/mm3 (4.6-6.20); Red Cell Distribution Width 12.8 % (11.5-14.5)
[2024-02-28 10:29] LABS: Anion Gap 12 mmol/L (4-12); Blood Urea Nitrogen 59 mg/dL (9-20); Calcium 8.9 mg/dL (8.4-10.2); Carbon Dioxide 23 mmol/L (22-30); Chloride 98 mmol/L (98-107); Estimated CRCL calculation 14 ml/min; Estimated Glomerular Filt Rate 13; Glucose 176 mg/dL (65-110); Potassium 4.5 mmol/L (3.4-5.0); Sodium 133 mmol/L (137-145)
[2024-02-28 11:41] LABS: Glucose Point of Care 167 mg/dl (65-105)
--- NOTE | 2024-02-28 13:30 | P.PNCA_ITS ---
Progress Note: A&P Assessment and Plan (1) Atrial fibrillation with rapid ventricular response: Code(s): I48.91 - Unspecified atrial fibrillation Status: Acute Assessment and Plan: AFib with RVR improving today Left atrial appendage thrombus Hypertension controlled Chronic diastolic heart failure End-stage renal disease on hemodialysis Plan He is on metoprolol succinate 200mg daily and diltiazem 360mg daily and is frequently tachycardic even at rest. Continue apixaban. Difficult situation as we are limited in medical options given ESRD and LA thrombus. Currently he is optimally medically managed and asymptomatic. Considered addition of digoxin but given ESRD, high risk for dig toxicity. This was discussed with pharmacy. Other medical option would be amiodarone, sotalol, or flecainide. However, he has known LA thrombus and although anticoagulated and a lower risk with chemical cardioversion, there is risk for CVA. I discussed these risks with the patient. [place] decision was made to avoid digoxin or any antiarrhythmic. At this point, he would be best served with EP consultation. Offered transfer to [facility], however, patient has transportation limitations and would prefer to transfer to [facility]. Notified Hospitalist of need for transfer. (2) Thrombus of left atrial appendage: Code(s): I51.3 - Intracardiac thrombosis, not elsewhere classified Status: Acute Assessment and Plan: (3) Hypertension: Code(s): I10 - Essential (primary) hypertension Status: Acute Assessment and Plan: (4) ESRD on dialysis: Code(s): N18.6 - End stage renal disease; Z99.2 - Dependence on renal dialysis Status: Acute Assessment and Plan: Nephrology consulted (5) Hyperlipidemia: Code(s): E78.5 - Hyperlipidemia, unspecified Status: Acute Assessment and Plan: Continue Atorvastatin. (6) Type 2 diabetes mellitus with hyperglycemia, with long-term current use of insulin: Code(s): E11.65 - Type 2 diabetes mellitus with hyperglycemia; Z79.4 - rn long term care (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 of insulin Status: Acute Assessment and Plan: Management of diabetes as per Hospitalist. Subjective Date/time seen: 02/28/24 13:30 Interval history: No acute events Telemetry atrial fibrillation heart rate 100-110 02/27/2024: Telemetry atrial fibrillation generally 90's - low 100's. Currently in the 120's-130's with activity. He does not feel palpitations or shortness of breath. Denies chest pain. 02/28/2024: Over the last 24 hours telemetry generally above goal, heart rate often in the 130's even at rest. He is consistently tachycardic with activity. He does not feel palpitations or chest pain. He has mild shortness of breath Review of Systems Review of Systems: All systems reviewed & are unremarkable except as noted in HPI and below Exam Const: General: no acute distress HENMT: Mouth: Yes moist mucous membranes Eyes: General: appearance normal, both eyes and all related structures Sclera: sclerae normal Resp: Effort & Inspection: normal respiratory effort Auscultation: crackles Cardio: Rate: tachycardic Rhythm: abnormal rhythm irregularly irregular Heart sounds: no murmurs Skin: General skin exam: normal color Other: Bruising noted on arms Neuro: Speech: normal speech Extrem: Other: No edema Psych: Mental Status: mental status grossly normal Affect: normal affect Objective Data Vital Signs Vital Signs: Vital Signs - 24 hr 02/27/24 14:00 02/27/24 14:45 02/27/24 14:55 Temperature Pulse Rate 106 H 105 H 101 H Respiratory Rate 20 20 Blood Pressure Pulse Oximetry Oxygen Delivery Oxygen Flow Rate Fraction of Inspired Oxygen 02/27/24 16:00 02/27/24 16:00 02/27/24 19:47 Temperature 36.6 C 36.7 C Pulse Rate 71 111 H 102 H Respiratory Rate 20 20 Blood Pressure 133/61 149/83 H Pulse Oximetry 96 93 Oxygen Delivery Oxygen Flow Rate Fraction of Inspired Oxygen 02/27/24 20:00 02/27/24 20:00 02/27/24 20:19 Temperature Pulse Rate 126 H 109 H Respiratory Rate Blood Pressure Pulse Oximetry 99 Oxygen Delivery High Flow Nasal Cannula Oxygen Flow Rate 2 Fraction of Inspired Oxygen 02/27/24 20:38 02/27/24 20:38 02/27/24 20:47 Temperature Pulse Rate 103 H 98 Respiratory Rate 20 20 Blood Pressure Pulse Oximetry 94 Oxygen Delivery Nasal Cannula Oxygen Flow Rate 1 Fraction of Inspired Oxygen 24 02/27/24 22:41 02/27/24 22:41 02/27/24 23:59 Temperature 36.5 C Pulse Rate 105 H 118 H Respiratory Rate 22 H 20 Blood Pressure 142/76 H Pulse Oximetry 95 95 92 Oxygen Delivery CPAP CPAP Oxygen Flow Rate Fraction of Inspired Oxygen 28 02/28/24 00:00 02/28/24 01:36 02/28/24 01:36 Temperature Pulse Rate 112 H 115 H 115 H Respiratory Rate 20 20 Blood Pressure Pulse Oximetry 95 Oxygen Delivery CPAP Oxygen Flow Rate Fraction of Inspired Oxygen 02/28/24 01:44 02/28/24 04:00 02/28/24 04:28 Temperature 36.6 C Pulse Rate 99 88 102 H Respiratory Rate 20 20 Blood Pressure 148/54 H Pulse Oximetry 94 Oxygen Delivery Oxygen Flow Rate Fraction of Inspired Oxygen 02/28/24 08:00 02/28/24 08:16 02/28/24 08:17 Temperature 36.4 C Pulse Rate 80 99 Respiratory Rate 24 H 20 Blood Pressure 141/56 H Pulse Oximetry 99 94 Oxygen Delivery Nasal Cannula Oxygen Flow Rate 2 Fraction of Inspired Oxygen 02/28/24 08:30 02/28/24 08:32 02/28/24 09:38 Temperature Pulse Rate 102 H 96 Respiratory Rate 20 Blood Pressure Pulse Oximetry Oxygen Delivery Nasal Cannula Oxygen Flow Rate 1 Fraction of Inspired Oxygen 02/28/24 12:00 Temperature 36.4 C L Pulse Rate 126 H Respiratory Rate 24 H Blood Pressure 123/73 Pulse Oximetry 95 Oxygen Delivery Oxygen Flow Rate Fraction of Inspired Oxygen Intake/Output Intake/Output: Intake & Output 02/25/24 02/26/24 02/27/24 02/28/24 23:59 23:59 23:59 23:59 Intake Total 2070 1640 1620 600 Output Total 2850 300 300 200 Balance -780 1340 1320 400 Meds/Results Medications: Active Medications Generic Name Dose Route Start Last Admin Trade Name Freq PRN Reason Stop Dose Admin Acetaminophen 650 mg 02/21/24 17:03 Acetaminophen 325 Mg Tablet PO Q6H PRN Mild Pain (1-3) or Fever Albuterol 2.5 mg 02/22/24 08:43 Albuterol Sulfate Neb 2.5 Mg/3 Ml Inh INHALATION Q4HRT PRN Shortness Of Breath Albuterol/Ipratropium 3 ml 02/22/24 14:00 02/28/24 08:16 Ipratropium 0.5 Mg/Albuterol Sulfate 2.5 Mg Ampul.Neb 3 Ml INHALATION 3 ml Q6HRT FAISAL Administration Alprazolam 0.5 mg 02/21/24 23:13 02/26/24 20:24 Alprazolam (*Crx) 0.5 Mg Tablet PO 0.5 mg BID PRN Administration anxiety Amoxicillin/Clavulanate Potassium 1 tablet 02/27/24 20:00 02/28/24 08:31 Amoxicillin/Clavulanate K 500-125 Mg Tab PO 02/29/24 09:01 1 tablet Q12HR FAISAL Administration Apixaban 2.5 mg 02/22/24 10:55 02/28/24 08:32 Apixaban 2.5 Mg Tablet PO 2.5 mg Q12HR FAISAL Administration Atorvastatin Calcium 20 mg 02/22/24 09:00 02/28/24 08:31 Atorvastatin 20 Mg Tablet PO 20 mg DAILY FAISAL Administration Dextrose 12.5 gm 02/21/24 17:04 Dextrose 50% 25 Gm/50 Ml Syringe IV PUSH PRN PRN Hypoglycemia Protocol Diltiazem HCl 360 mg 02/24/24 12:30 02/28/24 08:32 Diltiazem Hcl Cd 180 Mg Cap.24hr PO 360 mg QAM FAISAL Administration Fluticasone/Umeclidinium/Vilanterol 1 puff 02/22/24 09:00 02/28/24 08:16 Fluticasone/Umeclidin/Vilanter 100-62.5-25 Mcg Ellipta INHALATION 1 puff DAILY FAISAL Administration Furosemide 20 mg 02/22/24 09:00 02/28/24 08:32 Furosemide 20 Mg Tablet PO 20 mg QAM FAISAL Administration Glucagon 1 mg 02/21/24 17:04 Glucagon For Inj 1 Mg Vial IM PRN PRN Hypoglycemia Protocol Glucose 15 gm 02/21/24 17:04 Glucose Oral Gel 15 Gm Of Glucse In 37.5 Gm Tube PO PRN PRN Hypoglycemia Protocol Hydralazine HCl 25 mg 02/21/24 23:20 02/28/24 13:14 Hydralazine Hcl 25 Mg Tablet PO Not Given TID FAISAL Dextrose 1,000 mls @ 100 mls/hr 02/21/24 17:04 Dextrose 5% 1,000 Ml IVPB PRN PRN Hypoglycemia Protocol Insulin Aspart 3 - 6 units 02/22/24 08:00 02/28/24 08:06 Insulin Aspart (*Bkc) 100 Units/Ml SUB-Q Not Given TIDWM [facility] Protocol Insulin Aspart 1 - 3 units 02/21/24 21:00 02/27/24 20:19 Insulin Aspart (*Bkc) 100 Units/Ml SUB-Q Not Given HS [facility] Protocol Insulin Glargine 17 units 02/22/24 21:00 02/27/24 20:22 Insulin Glargine (*Bkc) 100 Units/Ml SUB-Q 17 units HS FAISAL Administration Latanoprost 1 drop 02/21/24 23:25 02/27/24 17:16 Latanoprost 0.005% Op Soln 2.5 Ml Btl EACH EYE 1 drop QPM FAISAL Administration Metolazone 5 mg 02/22/24 09:00 02/28/24 08:33 Metolazone 5 Mg Tablet BY MOUTH 5 mg DAILY FAISAL Administration Metoprolol Succinate 200 mg 02/25/24 21:00 02/28/24 08:32 Metoprolol Succinate Ext Rel 100 Mg Tabcr PO 200 mg Q12HR FAISAL Administration Pantoprazole Sodium 40 mg 02/21/24 23:25 02/28/24 08:32 Pantoprazole 40 Mg Tablet PO 40 mg BID FAISAL Administration Tramadol/Acetaminophen 1 tab 02/21/24 23:13 02/27/24 20:21 Tramadol/Acetaminophen (*Crx) (Ultracet) 37.5/325 Mg Tablet PO 1 tab Q6H PRN Administration PAIN RATED 4-6 Radiology Results: ITS Impressions Venous Doppler Study 02/22/24 08:54 IMPRESSION: Negative bilateral lower extremity venous US. No deep vein thrombosis. Chest X-Ray 02/28/24 11:18 IMPRESSION: 1. Small lung volumes with stable airspace opacities in right mid and lower lung zones and left lower lung zone, consistent with atelectasis or less likely pneumonia. Labs Labs: Laboratory Results - last 24 hr 02/27/24 02/27/24 02/28/24 16:14 19:54 08:06 WBC RBC Hgb Hct MCV MCH MCHC RDW Plt Count MPV Immature Gran % (Auto) Neut % (Auto) Lymph % (Auto) [place] % (Auto) Eos % (Auto) Baso % (Auto) Lymph # (Auto) [place] # (Auto) Eos # (Auto) Baso # (Auto) Abs Immat Gran (auto) Absolute Neuts (auto) Absolute Nucleated RBC Nucleated RBC % Sodium Potassium Chloride Carbon Dioxide Anion Gap BUN Creatinine Estim Creat Clear Calc Estimated GFR Glucose POC Capillary Glucose 176 H 157 H 130 H Calcium 02/28/24 02/28/24 09:49 11:34 WBC 10.0 RBC 3.21 L Hgb 10.8 L Hct 32.1 L MCV 100.0 MCH 33.6 MCHC 33.6 RDW 12.8 Plt Count 259 MPV 8.6 Immature Gran % (Auto) 0.5 Neut % (Auto) 83.7 H Lymph % (Auto) 3.9 L [place] % (Auto) 7.6 Eos % (Auto) 3.5 Baso % (Auto) 0.8 Lymph # (Auto) 0.39 L [place] # (Auto) 0.8 H Eos # (Auto) 0.4 H Baso # (Auto) 0.1 Abs Immat Gran (auto) 0.05 H Absolute Neuts (auto) 8.4 H Absolute Nucleated RBC 0.000 Nucleated RBC % 0.0 Sodium 133 L Potassium 4.5 Chloride 98 Carbon Dioxide 23 Anion Gap 12 BUN 59 H D Creatinine 4.47 H Estim Creat Clear Calc 14 Estimated GFR 13 L Glucose 176 H POC Capillary Glucose 167 H Calcium 8.9 Quality VTE Prophylaxis VTE prophylaxis: mechanical ordered and pharmacologic ordered
[2024-02-28] MEDS: HEPARIN SODIUM 1,000 UNITS/ML VIAL 1000 UNITS IV PUSH (14:08)
[2024-02-28] MEDS: HEPARIN SODIUM 1,000 UNITS/ML VIAL 500 UNITS IV PUSH ×2 (14:11→15:11)
[2024-02-28] MEDS: ALBUMIN HUMAN 25% 25 GM/100 ML 100 ML IVPB (14:24)
--- NOTE | 2024-02-28 14:49 | PCRCNOTE ---
Home O2 eval on Hold. Pt is possible transfer to [facility]. No anticipated discharge home at this time.
[2024-02-28] MEDS: ALBUTEROL SULFATE NEB 2.5 MG/3 ML INH INHALATION (16:15)
--- NOTE | 2024-02-28 16:25 | P.PNNP_ITS ---
Progress Note: A&P Assessment and Plan (1) ESRD on dialysis: Code(s): N18.6 - End stage renal disease; Z99.2 - Dependence on renal dialysis Status: Acute Assessment and Plan: * End-stage renal disease * Hypertensive renal disease and renal failure * Anemia chronic kidney disease * Secondary hyperparathyroidism * Admitted with atrial fibrillation and rapid ventricular response with shortness of breath. * Patient is being treated for pneumonia as well. Plan - dialysis supervised - being transferred for ablation, cardiology note noted --may need IV cardizem here to control rate in the meanttime -- Subjective Date/time seen: 02/28/24 16:25 Interval history: Hemodialysis Procedure Note Seen and examined on hemodialysis Not well, lungs clear Tachycardic 130-140/min irregular rhythm UF goal 2000 mLS Chief complaint follow-up CKD 6/ESRD Review of Systems Review of Systems: Feels OK NO SOB But is swollen Exam Narrative: Vital signs as noted Elderly, not as comfortable with breathing at rest as yesterday, skin turgor normal, no pallor, no cyanosis, moist oral mucosa JVD at the cecum irregular rhythm rate, borderline tachycardic, no gallop, no rub, equal breath sounds: Diminished breath sounds, no rales or wheeze, soft nontender abdomen, no masses, no edema lower extremities, alert oriented x3, no tremors Objective Data Vital Signs Vital Signs: Vital Signs - 24 hr 02/27/24 19:47 02/27/24 20:00 02/27/24 20:00 Temperature 36.7 C Pulse Rate 102 H 126 H Respiratory Rate 20 Blood Pressure 149/83 H Pulse Oximetry 93 99 Oxygen Delivery High Flow Nasal Cannula Oxygen Flow Rate 2 Fraction of Inspired Oxygen 02/27/24 20:19 02/27/24 20:38 02/27/24 20:38 Temperature Pulse Rate 109 H 103 H Respiratory Rate 20 Blood Pressure Pulse Oximetry 94 Oxygen Delivery Nasal Cannula Oxygen Flow Rate 1 Fraction of Inspired Oxygen 24 02/27/24 20:47 02/27/24 22:41 02/27/24 22:41 Temperature Pulse Rate 98 105 H Respiratory Rate 20 22 H Blood Pressure Pulse Oximetry 95 95 Oxygen Delivery CPAP CPAP Oxygen Flow Rate Fraction of Inspired Oxygen 28 02/27/24 23:59 02/28/24 00:00 02/28/24 01:36 Temperature 36.5 C Pulse Rate 118 H 112 H 115 H Respiratory Rate 20 20 Blood Pressure 142/76 H Pulse Oximetry 92 95 Oxygen Delivery CPAP Oxygen Flow Rate Fraction of Inspired Oxygen 02/28/24 01:36 02/28/24 01:44 02/28/24 04:00 Temperature Pulse Rate 115 H 99 88 Respiratory Rate 20 20 Blood Pressure Pulse Oximetry Oxygen Delivery Oxygen Flow Rate Fraction of Inspired Oxygen 02/28/24 04:28 02/28/24 08:00 02/28/24 08:00 Temperature 36.6 C 36.4 C Pulse Rate 102 H 80 95 Respiratory Rate 20 24 H Blood Pressure 148/54 H 141/56 H Pulse Oximetry 94 99 Oxygen Delivery Oxygen Flow Rate Fraction of Inspired Oxygen 02/28/24 08:16 02/28/24 08:17 02/28/24 08:30 Temperature Pulse Rate 99 102 H Respiratory Rate 20 20 Blood Pressure Pulse Oximetry 94 Oxygen Delivery Nasal Cannula Oxygen Flow Rate 2 Fraction of Inspired Oxygen 02/28/24 08:32 02/28/24 09:38 02/28/24 12:00 Temperature 36.4 C L Pulse Rate 96 126 H Respiratory Rate 24 H Blood Pressure 123/73 Pulse Oximetry 95 Oxygen Delivery Nasal Cannula Oxygen Flow Rate 1 Fraction of Inspired Oxygen 02/28/24 12:00 02/28/24 13:58 02/28/24 14:11 Temperature 36.6 C Pulse Rate 108 H 100 88 Respiratory Rate 16 Blood Pressure 162/85 H 141/102 H Pulse Oximetry 93 Oxygen Delivery Oxygen Flow Rate Fraction of Inspired Oxygen 02/28/24 14:15 02/28/24 14:30 02/28/24 14:45 Temperature Pulse Rate 121 H 86 118 H Respiratory Rate Blood Pressure 151/94 H 134/96 H 148/108 H Pulse Oximetry Oxygen Delivery Oxygen Flow Rate Fraction of Inspired Oxygen 02/28/24 15:00 02/28/24 15:15 Temperature Pulse Rate 110 H 148 H Respiratory Rate Blood Pressure 155/84 H 146/89 H Pulse Oximetry Oxygen Delivery Oxygen Flow Rate Fraction of Inspired Oxygen Intake/Output Intake/Output: Intake & Output 02/25/24 02/26/24 02/27/24 02/28/24 23:59 23:59 23:59 23:59 Intake Total 2070 1640 1620 600 Output Total 2850 300 300 200 Balance -780 1340 1320 400 Meds/Results Medications: Active Medications Generic Name Dose Route Start Last Admin Trade Name Freq PRN Reason Stop Dose Admin Acetaminophen 650 mg 02/21/24 17:03 Acetaminophen 325 Mg Tablet PO Q6H PRN Mild Pain (1-3) or Fever Albuterol 2.5 mg 02/22/24 08:43 Albuterol Sulfate Neb 2.5 Mg/3 Ml Inh INHALATION Q4HRT PRN Shortness Of Breath Albuterol/Ipratropium 3 ml 02/22/24 14:00 02/28/24 14:00 Ipratropium 0.5 Mg/Albuterol Sulfate 2.5 Mg Ampul.Neb 3 Ml INHALATION Not Given Q6HRT FAISAL Alprazolam 0.5 mg 02/21/24 23:13 02/26/24 20:24 Alprazolam (*Crx) 0.5 Mg Tablet PO 0.5 mg BID PRN Administration anxiety Amoxicillin/Clavulanate Potassium 1 tablet 02/27/24 20:00 02/28/24 08:31 Amoxicillin/Clavulanate K 500-125 Mg Tab PO 02/29/24 09:01 1 tablet Q12HR FAISAL Administration Apixaban 2.5 mg 02/22/24 10:55 02/28/24 08:32 Apixaban 2.5 Mg Tablet PO 2.5 mg Q12HR FAISAL Administration Atorvastatin Calcium 20 mg 02/22/24 09:00 02/28/24 08:31 Atorvastatin 20 Mg Tablet PO 20 mg DAILY FAISAL Administration Dextrose 12.5 gm 02/21/24 17:04 Dextrose 50% 25 Gm/50 Ml Syringe IV PUSH PRN PRN Hypoglycemia Protocol Diltiazem HCl 360 mg 02/24/24 12:30 02/28/24 08:32 Diltiazem Hcl Cd 180 Mg Cap.24hr PO 360 mg QAM FAISAL Administration Fluticasone/Umeclidinium/Vilanterol 1 puff 02/22/24 09:00 02/28/24 08:16 Fluticasone/Umeclidin/Vilanter 100-62.5-25 Mcg Ellipta INHALATION 1 puff DAILY FAISAL Administration Furosemide 20 mg 02/22/24 09:00 02/28/24 08:32 Furosemide 20 Mg Tablet PO 20 mg QAM FAISAL Administration Glucagon 1 mg 02/21/24 17:04 Glucagon For Inj 1 Mg Vial IM PRN PRN Hypoglycemia Protocol Glucose 15 gm 02/21/24 17:04 Glucose Oral Gel 15 Gm Of Glucse In 37.5 Gm Tube PO PRN PRN Hypoglycemia Protocol Hydralazine HCl 25 mg 02/21/24 23:20 02/28/24 13:14 Hydralazine Hcl 25 Mg Tablet PO Not Given TID FAISAL Dextrose 1,000 mls @ 100 mls/hr 02/21/24 17:04 Dextrose 5% 1,000 Ml IVPB PRN PRN Hypoglycemia Protocol Insulin Aspart 3 - 6 units 02/22/24 08:00 02/28/24 12:00 Insulin Aspart (*Bkc) 100 Units/Ml SUB-Q Not Given TIDWM [facility]ISAL Protocol Insulin Aspart 1 - 3 units 02/21/24 21:00 02/27/24 20:19 Insulin Aspart (*Bkc) 100 Units/Ml SUB-Q Not Given HS [facility] Protocol Insulin Glargine 17 units 02/22/24 21:00 02/27/24 20:22 Insulin Glargine (*Bkc) 100 Units/Ml SUB-Q 17 units HS FAISAL Administration Latanoprost 1 drop 02/21/24 23:25 02/27/24 17:16 Latanoprost 0.005% Op Soln 2.5 Ml Btl EACH EYE 1 drop QPM FAISAL Administration Metolazone 5 mg 02/22/24 09:00 02/28/24 08:33 Metolazone 5 Mg Tablet BY MOUTH 5 mg DAILY FAISAL Administration Metoprolol Succinate 200 mg 02/25/24 21:00 02/28/24 08:32 Metoprolol Succinate Ext Rel 100 Mg Tabcr PO 200 mg Q12HR FAISAL Administration Pantoprazole Sodium 40 mg 02/21/24 23:25 02/28/24 08:32 Pantoprazole 40 Mg Tablet PO 40 mg BID FAISAL Administration Tramadol/Acetaminophen 1 tab 02/21/24 23:13 02/27/24 20:21 Tramadol/Acetaminophen (*Crx) (Ultracet) 37.5/325 Mg Tablet PO 1 tab Q6H PRN Administration PAIN RATED 4-6 Radiology Results: ITS Impressions Venous Doppler Study 02/22/24 08:54 IMPRESSION: Negative bilateral lower extremity venous US. No deep vein thrombosis. Chest X-Ray 02/28/24 11:18 IMPRESSION: 1. Small lung volumes with stable airspace opacities in right mid and lower lung zones and left lower lung zone, consistent with atelectasis or less likely pneumonia. Labs Labs: Laboratory Results - last 24 hr 02/27/24 02/27/24 02/28/24 16:14 19:54 08:06 WBC RBC Hgb Hct MCV MCH MCHC RDW Plt Count MPV Immature Gran % (Auto) Neut % (Auto) Lymph % (Auto) [place] % (Auto) Eos % (Auto) Baso % (Auto) Lymph # (Auto) [place] # (Auto) Eos # (Auto) Baso # (Auto) Abs Immat Gran (auto) Absolute Neuts (auto) Absolute Nucleated RBC Nucleated RBC % Sodium Potassium Chloride Carbon Dioxide Anion Gap BUN Creatinine Estim Creat Clear Calc Estimated GFR Glucose POC Capillary Glucose 176 H 157 H 130 H Calcium 02/28/24 02/28/24 09:49 11:34 WBC 10.0 RBC 3.21 L Hgb 10.8 L Hct 32.1 L MCV 100.0 MCH 33.6 MCHC 33.6 RDW 12.8 Plt Count 259 MPV 8.6 Immature Gran % (Auto) 0.5 Neut % (Auto) 83.7 H Lymph % (Auto) 3.9 L [place] % (Auto) 7.6 Eos % (Auto) 3.5 Baso % (Auto) 0.8 Lymph # (Auto) 0.39 L [place] # (Auto) 0.8 H Eos # (Auto) 0.4 H Baso # (Auto) 0.1 Abs Immat Gran (auto) 0.05 H Absolute Neuts (auto) 8.4 H Absolute Nucleated RBC 0.000 Nucleated RBC % 0.0 Sodium 133 L Potassium 4.5 Chloride 98 Carbon Dioxide 23 Anion Gap 12 BUN 59 H D Creatinine 4.47 H Estim Creat Clear Calc 14 Estimated GFR 13 L Glucose 176 H POC Capillary Glucose 167 H Calcium 8.9
[2024-02-28] MEDS: HEPARIN SODIUM 1,000 UNITS/ML VIAL 6000 UNITS IV PUSH (17:54)
[2024-02-28 18:33] LABS: Glucose Point of Care 134 mg/dl (65-105)
[2024-02-28] MEDS: LATANOPROST 0.005% OP SOLN 2.5 ML BTL 1 DROP EACH EYE (18:40)
[2024-02-28 19:45] LABS: Glucose Point of Care 131 mg/dl (65-105)
[2024-02-28] MEDS: ALPRAZolam (*CRX) 0.5 MG TABLET PO (22:51)
[2024-02-28] MEDS: INSULIN GLARGINE (*BKC) 100 UNITS/ML 17 UNITS SUB-Q (23:12)
[2024-02-29] VITALS (24 sets, daily range): BP systolic 94–135; BP diastolic 40–84; PULSE 96–130; RESP 18–24; TEMP 36.7–37.6; O2SAT 92–100
[2024-02-29] MEDS: IPRATROPIUM 0.5 MG/ALBUTEROL SULFATE 2.5 MG AMPUL.NEB 3 ML INHALATION ×3 (02:24→13:43)
[2024-02-29] MEDS: FLUTICASONE/UMECLIDIN/VILANTER 100-62.5-25 MCG ELLIPTA 1 PUFF INHALATION (07:41)
[2024-02-29 07:59] LABS: Glucose Point of Care 94 mg/dl (65-105)
--- NOTE | 2024-02-29 09:06 | PM.IMPN ---
Progress Note: A&P Assessment and Plan (1) Atrial fibrillation with rapid ventricular response: Code(s): I48.91 - Unspecified atrial fibrillation Status: Acute (2) Hypomagnesemia: Code(s): E83.42 - Hypomagnesemia Status: Acute (3) Hypertension: Code(s): I10 - Essential (primary) hypertension Status: Acute (4) End-stage renal disease on hemodialysis: Code(s): N18.6 - End stage renal disease; Z99.2 - Dependence on renal dialysis Status: Acute (5) Chronic obstructive pulmonary disease: Qualifiers: COPD type: unspecified COPD Qualified Code(s): J44.9 - Chronic obstructive pulmonary disease, unspecified Code(s): J44.9 - Chronic obstructive pulmonary disease, unspecified Status: Acute (6) Obstructive sleep apnea: Code(s): G47.33 - Obstructive sleep apnea (adult) (pediatric) Status: Acute (7) Insulin dependent diabetes mellitus: Status: Acute Plan This is a very pleasant 83-year-old male with paroxysmal atrial fibrillation no longer on chronic anticoagulation due to GI bleeding, duodenal ulcers, 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 proBNP 21,200, troponin 0.019. Chest x-ray showed bibasilar pneumonia and cardiomegaly with probable pulmonary edema. AFib RVR The patient presented to the emergency department from his professor of criminal justice's office for evaluation after he was found to be in rapid atrial fibrillation Patient mentions that his heart rate has been quite high for the past 1 week associated with shortness breath. Chest x-ray shows pulmonary edema, He was started on a diltiazem drip in the ED with some improvement in his rates. He is only on 25 mg of metoprolol succinate today which can be titrated up for better rate control. For now we will increase that to 50 mg daily and decrease clonidine to 0.1 mg daily and adjust as needed. not on anticoagulation due to history of bleeding ulcers and gastritis Appreciate cardiology consultation, can't perform electrical cardioversion Increase metoprolol to 200 mg b.i.d. p.o., Cardizem 360 mg daily, Eliquis 5 mg b.i.d. per cardio Review still not controlled, Will transfer to [facility] for evaluation treatment per professor of criminal justice request left atrial appendage thrombus on RODNEY in 2020 Patient may need anticoagulation Follow-up cardiology recommendation End-stage renal disease on hemodialysis Consult telemetry nurse for dialysis Chest x-ray shows pulmonary congestion Management per telemetry nurse Acute on chronic diastolic heart failure echo: 1. Technically difficult study with limited views. 2. Left ventricular chamber dimension is normal. 3. Left ventricular systolic function is normal, estimated at 65-70%. 4. There is mildly increased left ventricular wall thickness. 5. Left atrial chamber dimension is moderately enlarged. 6. There is mild tricuspid valve regurgitation. Patient's shortness breath, x-ray shows pulmonary congestion Received IV furosemide May need more dialysis COPD exacerbation Patient leukocytosis 13,700 upon arrival in the ED, X-ray shows bilateral basal pneumonia Start DuoNeb scheduled, albuterol nebulizer p.r.n. Follow-up VBG on azithromycin ceftriaxone IV Type 2 diabetes Continue basal insulin and initiate sliding scale insulin, Accu-Cheks, and hypoglycemic protocol. controlled Chronic anemia Stable Possible due to end-stage renal disease General weakness He patient has difficulty with ambulation. Physical deconditioning due to comorbidities and recent acute illness Consult PT OT career coach for evaluation and assisting placement Patient may benefit from rehab in a skilled nursing Discussed with professor of criminal justice and hospitalist at [facility], professor of criminal justice and hospitalist accept the patient. pt is on the waiting list Subjective Date/time seen: 02/29/24 09:06 Interval history: I saw and examined patient today. Patient denies palpitation, heart rate is better control, telemetry showed AFib, heart rate is still not controlled in the target range Patient denies lightheadedness, shortness breast improving. Patient denies abdomen pain, but feels nausea and has diarrhea.Telemetry atrial fibrillation heart rate is controlled. has general weakness, has difficult to ambulate. Exam Narrative: GENERAL: Ill-appearing, in no acute distress. Well-nourished. - EYES: EOMI. Anicteric. - HENT: Moist mucous membranes. - LUNGS: Coarse breath sound bilaterally, tachypnea . - CARDIOVASCULAR: Irregular irregular rhythm, tachycardia. No murmur. No JVD. - ABDOMEN: Soft, non-tender and non-distended. No palpable masses. - EXTREMITIES: No edema. Peripheral pulses 2+. Non-tender. - NEUROLOGIC: No focal neurological deficits. CN II-XII grossly intact. General weakness - PSYCHIATRIC: Awake, Alert and oriented x 3. Appropriate mood and affect. - SKIN: No rashes or lesions. Warm. - LYMPH: No cervical lymphadenopathy. Objective Data Vital Signs Vital Signs: Vital Signs - 24 hr 02/28/24 09:38 02/28/24 12:00 02/28/24 12:00 Temperature 97.5 F L Pulse Rate 126 H 108 H Respiratory Rate 24 H Blood Pressure 123/73 Pulse Oximetry 95 Oxygen Delivery Nasal Cannula Oxygen Flow Rate 1 02/28/24 13:58 02/28/24 14:11 02/28/24 14:15 Temperature 97.9 F Pulse Rate 100 88 121 H Respiratory Rate 16 Blood Pressure 162/85 H 141/102 H 151/94 H Pulse Oximetry 93 Oxygen Delivery Oxygen Flow Rate 02/28/24 14:30 02/28/24 14:45 02/28/24 15:00 Temperature Pulse Rate 86 118 H 110 H Respiratory Rate Blood Pressure 134/96 H 148/108 H 155/84 H Pulse Oximetry Oxygen Delivery Oxygen Flow Rate 02/28/24 15:15 02/28/24 15:30 02/28/24 15:45 Temperature Pulse Rate 148 H 146 H 151 H Respiratory Rate Blood Pressure 146/89 H 150/106 H 144/90 H Pulse Oximetry Oxygen Delivery Oxygen Flow Rate 02/28/24 16:00 02/28/24 16:00 02/28/24 16:15 Temperature Pulse Rate 146 H 126 H 90 Respiratory Rate Blood Pressure 154/97 H 128/88 Pulse Oximetry Oxygen Delivery Oxygen Flow Rate 02/28/24 16:15 02/28/24 16:24 02/28/24 16:30 Temperature Pulse Rate 109 H 121 H 151 H Respiratory Rate 22 H 22 H Blood Pressure 138/93 H Pulse Oximetry Oxygen Delivery Oxygen Flow Rate 02/28/24 16:45 02/28/24 17:00 02/28/24 17:15 Temperature Pulse Rate 159 H 155 H 97 Respiratory Rate Blood Pressure 151/100 H 152/99 H 147/112 H Pulse Oximetry Oxygen Delivery Oxygen Flow Rate 02/28/24 17:30 02/28/24 17:41 02/28/24 17:48 Temperature 98.2 F Pulse Rate 133 H 97 137 H Respiratory Rate 20 Blood Pressure 144/104 H 131/92 H 141/83 H Pulse Oximetry 98 Oxygen Delivery Oxygen Flow Rate 02/28/24 18:38 02/28/24 18:39 02/28/24 19:36 Temperature 99.6 F 98.4 F Pulse Rate 133 H 144 H 115 H Respiratory Rate 24 H 18 Blood Pressure 151/80 H 101/48 L Pulse Oximetry 100 100 Oxygen Delivery Oxygen Flow Rate 02/28/24 20:00 02/28/24 20:41 02/28/24 20:41 Temperature Pulse Rate 132 H 110 H Respiratory Rate 24 H Blood Pressure Pulse Oximetry 96 Oxygen Delivery Nasal Cannula Oxygen Flow Rate 2 02/28/24 20:41 02/28/24 20:48 02/28/24 21:20 Temperature Pulse Rate 138 H 120 H 115 H Respiratory Rate 27 H 24 H 18 Blood Pressure Pulse Oximetry 98 100 Oxygen Delivery CPAP CPAP Oxygen Flow Rate 2 02/28/24 22:00 02/28/24 22:50 02/28/24 23:42 Temperature 99.4 F Pulse Rate 127 H 120 H 128 H Respiratory Rate 19 Blood Pressure 149/76 H Pulse Oximetry 100 Oxygen Delivery Oxygen Flow Rate 02/29/24 00:00 02/29/24 00:35 02/29/24 02:00 Temperature Pulse Rate 116 H 128 H 111 H Respiratory Rate 19 Blood Pressure Pulse Oximetry 100 Oxygen Delivery CPAP Oxygen Flow Rate 2 02/29/24 02:25 02/29/24 02:26 02/29/24 02:36 Temperature Pulse Rate 113 H 103 H 106 H Respiratory Rate 23 H 24 H 24 H Blood Pressure Pulse Oximetry 94 Oxygen Delivery CPAP Oxygen Flow Rate 02/29/24 04:00 02/29/24 04:00 02/29/24 04:50 Temperature 98.6 F Pulse Rate 109 H 116 H 109 H Respiratory Rate 18 18 Blood Pressure 135/83 Pulse Oximetry 92 92 Oxygen Delivery CPAP Oxygen Flow Rate 2 02/29/24 06:00 02/29/24 07:41 02/29/24 07:41 Temperature Pulse Rate 96 107 H Respiratory Rate 24 H Blood Pressure Pulse Oximetry 97 Oxygen Delivery Nasal Cannula Oxygen Flow Rate 2 02/29/24 07:48 02/29/24 08:24 02/29/24 09:04 Temperature 99.7 F H Pulse Rate 120 H 103 H 107 H Respiratory Rate 20 Blood Pressure 94/40 L 127/54 L Pulse Oximetry 98 Oxygen Delivery Oxygen Flow Rate Intake/Output Intake/Output: Intake & Output 02/26/24 02/27/24 02/28/24 02/29/24 23:59 23:59 23:59 23:59 Intake Total 1640 1620 900 240 Output Total 135 309 8303 Balance 1340 1320 -1300 240 Meds/Results Medications: Active Medications Generic Name Dose Route Start Last Admin Trade Name Freq PRN Reason Stop Dose Admin Acetaminophen 650 mg 02/21/24 17:03 Acetaminophen 325 Mg Tablet PO Q6H PRN Mild Pain (1-3) or Fever Albuterol 2.5 mg 02/22/24 08:43 02/28/24 16:15 Albuterol Sulfate Neb 2.5 Mg/3 Ml Inh INHALATION 2.5 mg Q4HRT PRN Administration Shortness Of Breath Albuterol/Ipratropium 3 ml 02/22/24 14:00 02/29/24 07:41 Ipratropium 0.5 Mg/Albuterol Sulfate 2.5 Mg Ampul.Neb 3 Ml INHALATION 3 ml Q6HRT FAISAL Administration Alprazolam 0.5 mg 02/21/24 23:13 02/28/24 22:51 Alprazolam (*Crx) 0.5 Mg Tablet PO 0.5 mg BID PRN Administration anxiety Amoxicillin/Clavulanate Potassium 1 tablet 02/27/24 20:00 02/28/24 22:50 Amoxicillin/Clavulanate K 500-125 Mg Tab PO 02/29/24 09:01 1 tablet Q12HR FAISAL Administration Apixaban 2.5 mg 02/22/24 10:55 02/28/24 22:50 Apixaban 2.5 Mg Tablet PO 2.5 mg Q12HR FAISAL Administration Atorvastatin Calcium 20 mg 02/22/24 09:00 02/28/24 08:31 Atorvastatin 20 Mg Tablet PO 20 mg DAILY FAISAL Administration Dextrose 12.5 gm 02/21/24 17:04 Dextrose 50% 25 Gm/50 Ml Syringe IV PUSH PRN PRN Hypoglycemia Protocol Diltiazem HCl 360 mg 02/24/24 12:30 02/28/24 08:32 Diltiazem Hcl Cd 180 Mg Cap.24hr PO 360 mg QAM FAISAL Administration Fluticasone/Umeclidinium/Vilanterol 1 puff 02/22/24 09:00 02/29/24 07:41 Fluticasone/Umeclidin/Vilanter 100-62.5-25 Mcg Ellipta INHALATION 1 puff DAILY FAISAL Administration Furosemide 20 mg 02/22/24 09:00 02/28/24 08:32 Furosemide 20 Mg Tablet PO 20 mg QAM FAISAL Administration Glucagon 1 mg 02/21/24 17:04 Glucagon For Inj 1 Mg Vial IM PRN PRN Hypoglycemia Protocol Glucose 15 gm 02/21/24 17:04 Glucose Oral Gel 15 Gm Of Glucse In 37.5 Gm Tube PO PRN PRN Hypoglycemia Protocol Hydralazine HCl 25 mg 02/21/24 23:20 02/28/24 18:40 Hydralazine Hcl 25 Mg Tablet PO 25 mg TID FAISAL Administration Dextrose 1,000 mls @ 100 mls/hr 02/21/24 17:04 Dextrose 5% 1,000 Ml IVPB PRN PRN Hypoglycemia Protocol Insulin Aspart 3 - 6 units 02/22/24 08:00 02/29/24 09:03 Insulin Aspart (*Bkc) 100 Units/Ml SUB-Q Not Given TIDWM FAISAL Protocol Insulin Aspart 1 - 3 units 02/21/24 21:00 02/28/24 22:50 Insulin Aspart (*Bkc) 100 Units/Ml SUB-Q Not Given HS FAISAL Protocol Insulin Glargine 17 units 02/22/24 21:00 02/28/24 23:12 Insulin Glargine (*Bkc) 100 Units/Ml SUB-Q 17 units HS FAISAL Administration Latanoprost 1 drop 02/21/24 23:25 02/28/24 18:40 Latanoprost 0.005% Op Soln 2.5 Ml Btl EACH EYE 1 drop QPM FAISAL Administration Metolazone 5 mg 02/22/24 09:00 02/28/24 08:33 Metolazone 5 Mg Tablet BY MOUTH 5 mg DAILY FAISAL Administration Metoprolol Succinate 200 mg 02/25/24 21:00 02/28/24 22:50 Metoprolol Succinate Ext Rel 100 Mg Tabcr PO 200 mg Q12HR FAISAL Administration Pantoprazole Sodium 40 mg 02/21/24 23:25 02/28/24 18:40 Pantoprazole 40 Mg Tablet PO 40 mg BID FAISAL Administration Tramadol/Acetaminophen 1 tab 02/21/24 23:13 02/27/24 20:21 Tramadol/Acetaminophen (*Crx) (Ultracet) 37.5/325 Mg Tablet PO 1 tab Q6H PRN Administration PAIN RATED 4-6 Radiology Results: ITS Impressions Venous Doppler Study 02/22/24 08:54 IMPRESSION: Negative bilateral lower extremity venous US. No deep vein thrombosis. Chest X-Ray 02/28/24 11:18 IMPRESSION: 1. Small lung volumes with stable airspace opacities in right mid and lower lung zones and left lower lung zone, consistent with atelectasis or less likely pneumonia. Labs Labs: Laboratory Results - last 24 hr 02/28/24 02/28/24 02/28/24 09:49 11:34 18:31 WBC 10.0 RBC 3.21 L Hgb 10.8 L Hct 32.1 L MCV 100.0 MCH 33.6 MCHC 33.6 RDW 12.8 Plt Count 259 MPV 8.6 Immature Gran % (Auto) 0.5 Neut % (Auto) 83.7 H Lymph % (Auto) 3.9 L [place] % (Auto) 7.6 Eos % (Auto) 3.5 Baso % (Auto) 0.8 Lymph # (Auto) 0.39 L [place] # (Auto) 0.8 H Eos # (Auto) 0.4 H Baso # (Auto) 0.1 Abs Immat Gran (auto) 0.05 H Absolute Neuts (auto) 8.4 H Absolute Nucleated RBC 0.000 Nucleated RBC % 0.0 Sodium 133 L Potassium 4.5 Chloride 98 Carbon Dioxide 23 Anion Gap 12 BUN 59 H D Creatinine 4.47 H Estim Creat Clear Calc 14 Estimated GFR 13 L Glucose 176 H POC Capillary Glucose 167 H 134 H Calcium 8.9 02/28/24 02/29/24 19:39 07:40 WBC RBC Hgb Hct MCV MCH MCHC RDW Plt Count MPV Immature Gran % (Auto) Neut % (Auto) Lymph % (Auto) [place] % (Auto) Eos % (Auto) Baso % (Auto) Lymph # (Auto) [place] # (Auto) Eos # (Auto) Baso # (Auto) Abs Immat Gran (auto) Absolute Neuts (auto) Absolute Nucleated RBC Nucleated RBC % Sodium Potassium Chloride Carbon Dioxide Anion Gap BUN Creatinine Estim Creat Clear Calc Estimated GFR Glucose POC Capillary Glucose 131 H 94 Calcium
[2024-02-29] MEDS: APIXABAN 2.5 MG TABLET PO (09:09)
[2024-02-29] MEDS: dilTIAZem HCL CD 180 MG CAP.24HR 360 MG PO (09:09)
[2024-02-29] MEDS: metOLazone 5 MG TABLET BY MOUTH (09:09)
[2024-02-29] MEDS: FUROSEMIDE 20 MG TABLET PO (09:09)
[2024-02-29] MEDS: AMOXICILLIN/CLAVULANATE K 500-125 MG TAB 1 TABLET PO (09:09)
[2024-02-29] MEDS: METOPROLOL SUCCINATE EXT REL 100 MG TABCR 200 MG PO (09:10)
[2024-02-29] MEDS: PANTOPRAZOLE 40 MG TABLET PO ×2 (09:10→17:08)
[2024-02-29] MEDS: ATORVASTATIN 20 MG TABLET PO (09:10)
[2024-02-29] MEDS: hydrALAZINE HCL 25 MG TABLET PO ×3 (09:10→17:08)
--- NOTE | 2024-02-29 10:15 | PCNWS ---
Weekly nutritional screen. Patient is tolerating current Diabetic consistent carb diet with adequate intake, ranging from 25-100, mostly 75-100%. No weight loss reported. No nutritional needs at this time.
[2024-02-29 11:51] LABS: Glucose Point of Care 110 mg/dl (65-105)
[2024-02-29 16:03] LABS: Glucose Point of Care 154 mg/dl (65-105)
[2024-02-29] MEDS: LATANOPROST 0.005% OP SOLN 2.5 ML BTL 1 DROP EACH EYE (17:09)
--- NOTE | 2024-02-29 17:25 | PM.TDS ---
Transfer Discharge Sum: Prov Provider Date of admission: 02/22/24 10:44 Primary care physician: Santi Roy MD Admitting clinician: Jeffery Day MD Consults: 02/21/24 Consult to Physician Routine Comment: Consulting Provider: Itz Boyd Reason for consultation: ESRD on dialysis Tu, , Sat Has provider been notified: Yes Consult to Physician Routine Comment: Consulting Provider: Pj Abreu Reason for consultation: Afib with RVR Has provider been notified: Yes 02/27/24 Care Coordination Consult Routine Reason for Consult:: Advanced Directives DS: Admitting Diagnosis Discharge Date 02/29/24 Admitting Diagnosis (1) Atrial fibrillation with rapid ventricular response: Code(s): I48.91 - Unspecified atrial fibrillation Status: Acute (2) Hypomagnesemia: Code(s): E83.42 - Hypomagnesemia Status: Acute (3) Hypertension: Code(s): I10 - Essential (primary) hypertension Status: Acute (4) End-stage renal disease on hemodialysis: Code(s): N18.6 - End stage renal disease; Z99.2 - Dependence on renal dialysis Status: Acute (5) Chronic obstructive pulmonary disease: Qualifiers: COPD type: unspecified COPD Qualified Code(s): J44.9 - Chronic obstructive pulmonary disease, unspecified Code(s): J44.9 - Chronic obstructive pulmonary disease, unspecified Status: Acute (6) Obstructive sleep apnea: Code(s): G47.33 - Obstructive sleep apnea (adult) (pediatric) Status: Acute (7) Insulin dependent diabetes mellitus: Status: Acute DS: Discharge Diagnosis Discharge Diagnosis (1) Atrial fibrillation with rapid ventricular response: Code(s): I48.91 - Unspecified atrial fibrillation Status: Acute (2) Hypomagnesemia: Code(s): E83.42 - Hypomagnesemia Status: Acute (3) Hypertension: Code(s): I10 - Essential (primary) hypertension Status: Acute (4) End-stage renal disease on hemodialysis: Code(s): N18.6 - End stage renal disease; Z99.2 - Dependence on renal dialysis Status: Acute (5) Chronic obstructive pulmonary disease: Qualifiers: COPD type: unspecified COPD Qualified Code(s): J44.9 - Chronic obstructive pulmonary disease, unspecified Code(s): J44.9 - Chronic obstructive pulmonary disease, unspecified Status: Acute (6) Obstructive sleep apnea: Code(s): G47.33 - Obstructive sleep apnea (adult) (pediatric) Status: Acute (7) Insulin dependent diabetes mellitus: Status: Acute Transfer Discharge Sum: Med Medications Active and Home Medications: Home Medications furosemide 20 mg tablet 20 mg PO QAM 04/27/19 [History Confirmed 02/21/24] latanoprost 0.005 % eye drops 1 drop ophthalmic (eye) QPM 04/27/19 [History Confirmed 02/21/24] alcohol swabs (Alcohol Prep Pads) 1 pad topical TID #100 ea 05/13/22 [Rx Confirmed 02/21/24] blood-glucose meter (Draftuch Ultra2 Meter) #1 ea 11/22/22 [Rx Confirmed 02/21/24] blood sugar diagnostic (EasyMax strips) #300 ea 04/13/23 [Rx Confirmed 02/21/24] lancets 30 gauge (Easy Touch Twist Lancets) #300 ea 06/28/23 [Rx Confirmed 02/21/24] hydralazine 25 mg tablet 25 mg PO TID #270 tabs 07/05/23 [Rx Confirmed 02/21/24] albuterol sulfate 90 mcg/actuation aerosol inhaler 1 - 2 puff inhalation Q4-6H PRN shortness of breath or wheezing #25.5 grams 08/02/23 [Rx Confirmed 02/21/24] atorvastatin 20 mg tablet 20 mg PO DAILY #90 tabs 10/03/23 [Rx Confirmed 02/21/24] clonidine HCl 0.1 mg tablet 0.1 mg PO BID #180 tabs 10/03/23 [Rx Confirmed 02/21/24] metoprolol succinate 25 mg tablet,extended release 24 hr 25 mg PO DAILY #30 tabs 10/03/23 [Rx Confirmed 02/21/24] pantoprazole 40 mg tablet,delayed release 40 mg PO BID #180 tabs 10/03/23 [Rx Confirmed 02/21/24] insulin glargine 100 unit/mL (3 mL) subcutaneous pen (Lantus Solostar U-100 Insulin) See Rx Instructions .Route .COMPLEX #15 mL 11/07/23 [Rx Confirmed 02/21/24] pen needle, diabetic 32 gauge x 5/32 (UltiCare Pen Needle) #100 ea 11/07/23 [Rx Confirmed 02/21/24] fluticasone fur. 100 mcg-umeclid 62.5 mcg-vilant 25 mcg inhalat.powder (Trelegy Ellipta) See Rx Instructions .Route .COMPLEX #180 ea 11/14/23 [Rx Confirmed 02/21/24] amlodipine 10 mg tablet See Rx Instructions .Route .COMPLEX #90 tabs 12/12/23 [Rx Confirmed 02/21/24] metolazone 5 mg tablet See Rx Instructions .Route .COMPLEX #90 tabs 12/28/23 [Rx Confirmed 02/21/24] alprazolam 0.5 mg tablet (Xanax) 0.5 mg PO BID PRN anxiety #60 tabs 02/10/24 [Rx Confirmed 02/21/24] tramadol 37.5 mg-acetaminophen 325 mg tablet 1 tablet PO Q6H PRN pain #120 tabs 02/17/24 [Rx Confirmed 02/21/24] Active Medications Acetaminophen (Acetaminophen 325 Mg Tablet) 650 mg PO Q6H PRN PRN Reason: Mild Pain (1-3) or Fever Albuterol (Albuterol Sulfate Neb 2.5 Mg/3 Ml Inh) 2.5 mg INHALATION Q4HRT PRN PRN Reason: Shortness Of Breath Last Admin: 02/28/24 16:15 Dose: 2.5 mg Albuterol/Ipratropium (Ipratropium 0.5 Mg/Albuterol Sulfate 2.5 Mg Ampul.Neb 3 Ml) 3 ml INHALATION Q6HRT [facility] Last Admin: 02/29/24 13:43 Dose: 3 ml Alprazolam (Alprazolam (*Crx) 0.5 Mg Tablet) 0.5 mg PO BID PRN PRN Reason: anxiety Last Admin: 02/28/24 22:51 Dose: 0.5 mg Apixaban (Apixaban 2.5 Mg Tablet) 2.5 mg PO Q12HR [facility] Last Admin: 02/29/24 09:09 Dose: 2.5 mg Atorvastatin Calcium (Atorvastatin 20 Mg Tablet) 20 mg PO DAILY [facility] Last Admin: 02/29/24 09:10 Dose: 20 mg Dextrose (Dextrose 50% 25 Gm/50 Ml Syringe) 12.5 gm IV PUSH PRN PRN; Protocol PRN Reason: Hypoglycemia Diltiazem HCl (Diltiazem Hcl Cd 180 Mg Cap.24hr) 360 mg PO QAM [facility] Last Admin: 02/29/24 09:09 Dose: 360 mg Fluticasone/Umeclidinium/Vilanterol (Fluticasone/Umeclidin/Vilanter 100-62.5-25 Mcg Ellipta) 1 puff INHALATION DAILY [facility] Last Admin: 02/29/24 07:41 Dose: 1 puff Furosemide (Furosemide 20 Mg Tablet) 20 mg PO QAM [facility] Last Admin: 02/29/24 09:09 Dose: 20 mg Glucagon (Glucagon For Inj 1 Mg Vial) 1 mg IM PRN PRN; Protocol PRN Reason: Hypoglycemia Glucose (Glucose Oral Gel 15 Gm Of Glucse In 37.5 Gm Tube) 15 gm PO PRN PRN; Protocol PRN Reason: Hypoglycemia Hydralazine HCl (Hydralazine Hcl 25 Mg Tablet) 25 mg PO TID [facility] Last Admin: 02/29/24 17:08 Dose: 25 mg Dextrose (Dextrose 5% 1,000 Ml) 1,000 mls @ 100 mls/hr IVPB PRN PRN; Protocol PRN Reason: Hypoglycemia Insulin Aspart (Insulin Aspart (*Bkc) 100 Units/Ml) 3 - 6 units SUB-Q TIDWM [facility]; Protocol Last Admin: 02/29/24 16:42 Dose: Not Given Insulin Aspart (Insulin Aspart (*Bkc) 100 Units/Ml) 1 - 3 units SUB-Q HS [facility]; Protocol Last Admin: 02/28/24 22:50 Dose: Not Given Insulin Glargine (Insulin Glargine (*Bkc) 100 Units/Ml) 17 units SUB-Q HS [facility] Last Admin: 02/28/24 23:12 Dose: 17 units Latanoprost (Latanoprost 0.005% Op Soln 2.5 Ml Btl) 1 drop EACH EYE QPM [facility] Last Admin: 02/29/24 17:09 Dose: 1 drop Metolazone (Metolazone 5 Mg Tablet) 5 mg BY MOUTH DAILY [facility] Last Admin: 02/29/24 09:09 Dose: 5 mg Metoprolol Succinate (Metoprolol Succinate Ext Rel 100 Mg Tabcr) 200 mg PO Q12HR [facility] Last Admin: 02/29/24 09:10 Dose: 200 mg Transfer Discharge Sum: Hosp Hospital Course Hospital course: <del>Leobardo</del> <del>D</del> <del>Eric</del> <del>is</del> <del>a</del> <del>83</del> year old male with paroxysmal atrial fibrillation no longer on chronic anticoagulation due to GI bleeding, duodenal ulcers, 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 proBNP 21,200, troponin 0.019. Chest x-ray showed bibasilar pneumonia and cardiomegaly with probable pulmonary edema. The following med issues have been addressed during hospitalization AFib RVR The patient presented to the emergency department from his stone polisher hand's office for evaluation after he was found to be in rapid atrial fibrillation Patient mentions that his heart rate has been quite high for the past 1 week associated with shortness breath. Chest x-ray shows pulmonary edema, He was started on a diltiazem drip in the ED with some improvement in his rates. He is only on 25 mg of metoprolol succinate today which can be titrated up for better rate control. For now we will increase that to 50 mg daily and decrease clonidine to 0.1 mg daily and adjust as needed. not on anticoagulation due to history of bleeding ulcers and gastritis Appreciate cardiology consultation, can't perform electrical cardioversion Increase metoprolol to 200 mg b.i.d. p.o., Cardizem 360 mg daily, Eliquis 5 mg b.i.d. per cardio Review still not controlled, Will transfer to [facility] for evaluation treatment per stone polisher hand request left atrial appendage thrombus on RODNEY in 2020 Patient may need anticoagulation Follow-up cardiology recommendation End-stage renal disease on hemodialysis Consult physical testing supervisor for dialysis Chest x-ray shows pulmonary congestion Management per physical testing supervisor Acute on chronic diastolic heart failure echo: 1. Technically difficult study with limited views. 2. Left ventricular chamber dimension is normal. 3. Left ventricular systolic function is normal, estimated at 65-70%. 4. There is mildly increased left ventricular wall thickness. 5. Left atrial chamber dimension is moderately enlarged. 6. There is mild tricuspid valve regurgitation. Patient's shortness breath, x-ray shows pulmonary congestion Received IV furosemide May need more dialysis COPD exacerbation Patient leukocytosis 13,700 upon arrival in the ED, X-ray shows bilateral basal pneumonia Start DuoNeb scheduled, albuterol nebulizer p.r.n. Follow-up VBG on azithromycin ceftriaxone IV Type 2 diabetes Continue basal insulin and initiate sliding scale insulin, Accu-Cheks, and hypoglycemic protocol. controlled Chronic anemia Stable Possible due to end-stage renal disease General weakness He patient has difficulty with ambulation. Physical deconditioning due to comorbidities and recent acute illness Consult PT OT animal care giver for evaluation and assisting placement Patient may benefit from rehab in a group home Discussed with stone polisher hand and hospitalist at [facility], stone polisher hand and hospitalist accept the patient. pt is on the waiting list Patient condition was stable upon transfer Time Spent with Patient Time attestation: Total time spent providing and/or coordinating transfer services: Exam Narrative: GENERAL: Ill-appearing, in no acute distress. Well-nourished. - EYES: EOMI. Anicteric. - HENT: Moist mucous membranes. - LUNGS: Coarse breath sound bilaterally, tachypnea . - CARDIOVASCULAR: Irregular irregular rhythm, tachycardia. No murmur. No JVD. - ABDOMEN: Soft, non-tender and non-distended. No palpable masses. - EXTREMITIES: No edema. Peripheral pulses 2+. Non-tender. - NEUROLOGIC: No focal neurological deficits. CN II-XII grossly intact. General weakness - PSYCHIATRIC: Awake, Alert and oriented x 3. Appropriate mood and affect. - SKIN: No rashes or lesions. Warm. - LYMPH: No cervical lymphadenopathy. DS: Data Data Completed and Pending Labs on day of discharge: Labs from last 24 hours 02/29/24 02/29/24 02/29/24 15:30 11:28 07:40 POC Capillary Glucose 154 H 110 H 94 02/28/24 02/28/24 19:39 18:31 POC Capillary Glucose 131 H 134 H
--- NOTE | 2024-02-29 17:30 | PM.PNCARD ---
Progress Note: A&P Assessment and Plan (1) Atrial fibrillation with rapid ventricular response: Code(s): I48.91 - Unspecified atrial fibrillation Status: Acute (2) Thrombus of left atrial appendage: Code(s): I51.3 - Intracardiac thrombosis, not elsewhere classified Status: Acute Assessment and Plan: (3) Hypertension: Code(s): I10 - Essential (primary) hypertension Status: Acute Assessment and Plan: (4) ESRD on dialysis: Code(s): N18.6 - End stage renal disease; Z99.2 - Dependence on renal dialysis Status: Acute Assessment and Plan: Nephrology consulted (5) Hyperlipidemia: Code(s): E78.5 - Hyperlipidemia, unspecified Status: Acute Assessment and Plan: Continue Atorvastatin. (6) Type 2 diabetes mellitus with hyperglycemia, with long-term current use of insulin: Code(s): E11.65 - Type 2 diabetes mellitus with hyperglycemia; Z79.4 - manager intermediate (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 of insulin Status: Acute Assessment and Plan: Management of diabetes as per Hospitalist. Plan AFib with RVR-rate in the 90s to 100s range; on anticoagulation with apixaban Left atrial appendage thrombus-on anticoagulation with apixaban Hypertension-controlled Chronic diastolic heart failure End-stage renal disease on hemodialysis Plan Continue metoprolol and diltiazem p.o. Continue apixaban for anticoagulation Unable to give digoxin given small therapeutic window in the setting of ESRD, high risk for digoxin toxicity Risk of CVA in the setting of left atrial appendage thrombus with the use of amiodarone, sotalol, flecainide which can cause chemical cardioversion. Thus antiarrhythmics are not an option Cardioversion is not an option at this time given left atrial appendage thrombus and risk of stroke Above was discussed with patient and he agrees with avoiding digoxin and any antiarrhythmics at this time. Will need EP evaluation for further management. Transfer to [facility] initiated Check and replace electrolytes as needed keeping potassium greater than 4 and magnesium greater than 2 Continue Lasix Continue statin Continue hydralazine Management of other medical problems per primary team Check and replace electrolytes as needed keeping potassium greater than 4 and magnesium greater than 2 Continue Lasix Continue statin Continue hydralazine Management of other medical problems per primary team Subjective Date/time seen: 02/29/24 17:30 Interval history: Reason for this encounter: AFib RVR Interval history: No chest pain, shortness of breath, palpitations, nausea, emesis, dizziness, lightheadedness, syncope, headache. Telemetry shows AFib with rates in the 100s range. Review of Systems Review of Systems: Complete review of systems was performed and pertinent positives are noted in HPI Exam Const: General: no acute distress HENMT: Mouth: Yes moist mucous membranes Eyes: General: appearance normal, both eyes and all related structures Sclera: sclerae normal Resp: Effort & Inspection: normal respiratory effort Auscultation: crackles Cardio: Rate: tachycardic Rhythm: abnormal rhythm irregularly irregular Heart sounds: no murmurs Skin: General skin exam: normal color Other: Bruising noted on arms Neuro: Speech: normal speech Extrem: Other: No edema Psych: Mental Status: mental status grossly normal Affect: normal affect Objective Data Vital Signs Vital Signs: Vital Signs - 24 hr 02/28/24 17:41 02/28/24 17:48 02/28/24 18:38 Temperature 36.8 C 37.6 C Pulse Rate 97 137 H 133 H Respiratory Rate 20 24 H Blood Pressure 131/92 H 141/83 H 151/80 H Pulse Oximetry 98 100 Oxygen Delivery Oxygen Flow Rate Fraction of Inspired Oxygen 02/28/24 18:39 02/28/24 19:36 02/28/24 20:00 Temperature 36.9 C Pulse Rate 144 H 115 H 132 H Respiratory Rate 18 Blood Pressure 101/48 L Pulse Oximetry 100 Oxygen Delivery Oxygen Flow Rate Fraction of Inspired Oxygen 02/28/24 20:41 02/28/24 20:41 02/28/24 20:41 Temperature Pulse Rate 110 H 138 H Respiratory Rate 24 H 27 H Blood Pressure Pulse Oximetry 96 98 Oxygen Delivery Nasal Cannula CPAP Oxygen Flow Rate 2 Fraction of Inspired Oxygen 02/28/24 20:48 02/28/24 21:20 02/28/24 22:00 Temperature Pulse Rate 120 H 115 H 127 H Respiratory Rate 24 H 18 Blood Pressure Pulse Oximetry 100 Oxygen Delivery CPAP Oxygen Flow Rate 2 Fraction of Inspired Oxygen 02/28/24 22:50 02/28/24 23:42 02/29/24 00:00 Temperature 37.4 C Pulse Rate 120 H 128 H 116 H Respiratory Rate 19 Blood Pressure 149/76 H Pulse Oximetry 100 Oxygen Delivery Oxygen Flow Rate Fraction of Inspired Oxygen 02/29/24 00:35 02/29/24 02:00 02/29/24 02:25 Temperature Pulse Rate 128 H 111 H 113 H Respiratory Rate 19 23 H Blood Pressure Pulse Oximetry 100 94 Oxygen Delivery CPAP CPAP Oxygen Flow Rate 2 Fraction of Inspired Oxygen 02/29/24 02:26 02/29/24 02:36 02/29/24 04:00 Temperature 37.0 C Pulse Rate 103 H 106 H 109 H Respiratory Rate 24 H 24 H 18 Blood Pressure 135/83 Pulse Oximetry 92 Oxygen Delivery Oxygen Flow Rate Fraction of Inspired Oxygen 02/29/24 04:00 02/29/24 04:50 02/29/24 06:00 Temperature Pulse Rate 116 H 109 H 96 Respiratory Rate 18 Blood Pressure Pulse Oximetry 92 Oxygen Delivery CPAP Oxygen Flow Rate 2 Fraction of Inspired Oxygen 02/29/24 07:41 02/29/24 07:41 02/29/24 07:48 Temperature Pulse Rate 107 H 120 H Respiratory Rate 24 H Blood Pressure Pulse Oximetry 97 Oxygen Delivery Nasal Cannula Oxygen Flow Rate 2 Fraction of Inspired Oxygen 02/29/24 08:00 02/29/24 08:24 02/29/24 09:04 Temperature 37.6 C H Pulse Rate 121 H 103 H 107 H Respiratory Rate 20 Blood Pressure 94/40 L 127/54 L Pulse Oximetry 98 Oxygen Delivery Oxygen Flow Rate Fraction of Inspired Oxygen 02/29/24 09:10 02/29/24 10:00 02/29/24 11:57 Temperature 36.7 C Pulse Rate 111 H 110 H 112 H Respiratory Rate 20 Blood Pressure 135/70 Pulse Oximetry 96 Oxygen Delivery Oxygen Flow Rate Fraction of Inspired Oxygen 02/29/24 12:00 02/29/24 13:43 02/29/24 13:55 Temperature Pulse Rate 130 H 113 H 113 H Respiratory Rate 18 18 Blood Pressure Pulse Oximetry Oxygen Delivery Oxygen Flow Rate Fraction of Inspired Oxygen 02/29/24 14:00 02/29/24 16:00 02/29/24 16:00 Temperature Pulse Rate 110 H 104 H Respiratory Rate Blood Pressure Pulse Oximetry 99 Oxygen Delivery Nasal Cannula Oxygen Flow Rate 1 Fraction of Inspired Oxygen 28 02/29/24 16:25 Temperature 36.9 C Pulse Rate 99 Respiratory Rate 20 Blood Pressure 131/84 Pulse Oximetry 99 Oxygen Delivery Oxygen Flow Rate Fraction of Inspired Oxygen Intake/Output Intake/Output: Intake & Output 0102/27/24 02/28/24 02/29/24 23:59 23:59 23:59 23:59 Intake Total 1640 1620 900 480 Output Total 285 882 8117 Balance 1340 1320 -1300 480 Meds/Results Medications: Active Medications Generic Name Dose Route Start Last Admin Trade Name Freq PRN Reason Stop Dose Admin Acetaminophen 650 mg 02/21/24 17:03 Acetaminophen 325 Mg Tablet PO Q6H PRN Mild Pain (1-3) or Fever Albuterol 2.5 mg 02/22/24 08:43 02/28/24 16:15 Albuterol Sulfate Neb 2.5 Mg/3 Ml Inh INHALATION 2.5 mg Q4HRT PRN Administration Shortness Of Breath Albuterol/Ipratropium 3 ml 02/22/24 14:00 02/29/24 13:43 Ipratropium 0.5 Mg/Albuterol Sulfate 2.5 Mg Ampul.Neb 3 Ml INHALATION 3 ml Q6HRT [facility] Administration Alprazolam 0.5 mg 02/21/24 23:13 02/28/24 22:51 Alprazolam (*Crx) 0.5 Mg Tablet PO 0.5 mg BID PRN Administration anxiety Apixaban 2.5 mg 02/22/24 10:55 02/29/24 09:09 Apixaban 2.5 Mg Tablet PO 2.5 mg Q12HR [facility] Administration Atorvastatin Calcium 20 mg 02/22/24 09:00 02/29/24 09:10 Atorvastatin 20 Mg Tablet PO 20 mg DAILY [facility] Administration Dextrose 12.5 gm 02/21/24 17:04 Dextrose 50% 25 Gm/50 Ml Syringe IV PUSH PRN PRN Hypoglycemia Protocol Diltiazem HCl 360 mg 02/24/24 12:30 02/29/24 09:09 Diltiazem Hcl Cd 180 Mg Cap.24hr PO 360 mg QAM [facility] Administration Fluticasone/Umeclidinium/Vilanterol 1 puff 02/22/24 09:00 02/29/24 07:41 Fluticasone/Umeclidin/Vilanter 100-62.5-25 Mcg Ellipta INHALATION 1 puff DAILY [facility] Administration Furosemide 20 mg 02/22/24 09:00 02/29/24 09:09 Furosemide 20 Mg Tablet PO 20 mg QAM [facility] Administration Glucagon 1 mg 02/21/24 17:04 Glucagon For Inj 1 Mg Vial IM PRN PRN Hypoglycemia Protocol Glucose 15 gm 02/21/24 17:04 Glucose Oral Gel 15 Gm Of Glucse In 37.5 Gm Tube PO PRN PRN Hypoglycemia Protocol Hydralazine HCl 25 mg 02/21/24 23:20 02/29/24 17:08 Hydralazine Hcl 25 Mg Tablet PO 25 mg TID [facility] Administration Dextrose 1,000 mls @ 100 mls/hr 02/21/24 17:04 Dextrose 5% 1,000 Ml IVPB PRN PRN Hypoglycemia Protocol Insulin Aspart 3 - 6 units 02/22/24 08:00 02/29/24 16:42 Insulin Aspart (*Bkc) 100 Units/Ml SUB-Q Not Given TIDWM [facility] Protocol Insulin Aspart 1 - 3 units 02/21/24 21:00 02/28/24 22:50 Insulin Aspart (*Bkc) 100 Units/Ml SUB-Q Not Given HS [facility] Protocol Insulin Glargine 17 units 02/22/24 21:00 02/28/24 23:12 Insulin Glargine (*Bkc) 100 Units/Ml SUB-Q 17 units HS [facility] Administration Latanoprost 1 drop 02/21/24 23:25 02/29/24 17:09 Latanoprost 0.005% Op Soln 2.5 Ml Btl EACH EYE 1 drop QPM [facility] Administration Metolazone 5 mg 02/22/24 09:00 02/29/24 09:09 Metolazone 5 Mg Tablet BY MOUTH 5 mg DAILY [facility] Administration Metoprolol Succinate 200 mg 02/25/24 21:00 02/29/24 09:10 Metoprolol Succinate Ext Rel 100 Mg Tabcr PO 200 mg Q12HR [facility] Administration Radiology Results: ITS Impressions Venous Doppler Study 02/22/24 08:54 IMPRESSION: Negative bilateral lower extremity venous US. No deep vein thrombosis. Chest X-Ray 02/28/24 11:18 IMPRESSION: 1. Small lung volumes with stable airspace opacities in right mid and lower lung zones and left lower lung zone, consistent with atelectasis or less likely pneumonia. Labs Labs: Laboratory Results - last 24 hr 02/28/24 02/28/24 02/29/24 18:31 19:39 07:40 POC Capillary Glucose 134 H 131 H 94 02/29/24 02/29/24 11:28 15:30 POC Capillary Glucose 110 H 154 H
== END 2024-02-29 19:10 | disposition short-term general hospital (02) | DRG 308 ==
LOC: ANHED 15:44 → ANHIMU 18:05
PROVIDERS: Internal Medicine; Internal Medicine Nephrology; Physician Assistant; Admitting Provider Hospitalist; Emergency Provider Physician Assistant; PCP Family Medicine; Visit Provider Hospitalist
PROC: B24BZZ4 Ultrasonography of Heart with Aorta, Transesophageal (ICD-10-PCS; CPT 93312; principal; 2024-02-23 12:30)
DX: I48.91 Unspecified atrial fibrillation (principal); I50.33 Acute on chronic diastolic (congestive) heart failure; N18.6 End stage renal disease; J18.9 Pneumonia, unspecified organism; I13.2 Hypertensive heart and chronic kidney disease with heart failure and with stage 5 chronic kidney disease, or end stage renal disease; J44.1 Chronic obstructive pulmonary disease with (acute) exacerbation; J44.0 Chronic obstructive pulmonary disease with (acute) lower respiratory infection; N25.81 Secondary hyperparathyroidism of renal origin; I51.3 Intracardiac thrombosis, not elsewhere classified; I34.0 Nonrheumatic mitral (valve) insufficiency; I48.0 Paroxysmal atrial fibrillation; D63.1 Anemia in chronic kidney disease; D50.9 Iron deficiency anemia, unspecified; E11.22 Type 2 diabetes mellitus with diabetic chronic kidney disease; E83.42 Hypomagnesemia; E78.5 Hyperlipidemia, unspecified; M19.91 Primary osteoarthritis, unspecified site; H40.9 Unspecified glaucoma; G47.33 Obstructive sleep apnea (adult) (pediatric); Z96.653 Presence of artificial knee joint, bilateral; Z96.611 Presence of right artificial shoulder joint; Z99.2 Dependence on renal dialysis; Z86.0101 Personal history of adenomatous and serrated colon polyps; Z87.891 Personal history of nicotine dependence; Z79.4 Long term (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 of insulin
CPT/HCPCS: 36415; 71045; 80048; 80053; 82803; 82948; 83036; 83735; 83880; 84145; 84443; 84484; 85025; 85027; 85610; 85730; 86140; 87340; 93005; 93312; 93320; 93325; 93970; 94003; 94640; 96365; 96366; 96372; 96375; 96376; 97165; 97530; 97535; 99285; A9270; C8929; G0257; G0378; J0456; J0696; J1160; J1644; J1815; J1940; J2250; J3010; J3475; J7030; J7040; P9047; Q9957

== ENCOUNTER 2024-04-02 03:30 | Day surgery (SDC) | payer MEDICARE, SELFPAY ==
[2024-03-30 13:39] VITALS: BMI 33.0
[2024-04-02] VITALS (11 sets, daily range): BP systolic 140–175; BP diastolic 70–119; PULSE 64–118; RESP 14–22; TEMP 36.9; O2SAT 90–100
--- OUTSIDE RECORDS SUMMARY | 2024-04-02 03:32 | XMS_ITS | Clinical Summary ---
Author Organization [facility] Address [address] [place] [address] Care Team Providers Care Laborer [employer] Name Role Phone Santi Roy MD Primary Care Provider [phone] Source Comments [facility],non-owned Affiliates and Associated Physician Practices is amultiple site organization consisting of ambulatory clinics and hospital sitesin [place], [place], [place] and [place]. This disclosure is being madepursuant to the Care Everywhere program and may not contain all information available regarding this patient. Last updated 17.[facility] Allergies No known active allergies Medications * Be aware that medications may not be up to date on this document. Alwaysverify current medications with the patient. Medication Sig Dispensed Refills Start Date End Date Status atorvastatin (LIPITOR) 20 MG tablet Take 20 mg by mouth Activ e ALPRAZolam (XANAX) 0.5 MG tablet Take 0.5 mg by mouth 2 times daily as needed Active amLODIPine (NORVASC) 10 MG tablet 09/12/2020 Active amiodarone (CORDARONE) 200 MG tablet Take 200 mg by mouth Acti ve cloNIDine (CATAPRES) 0.1 MG tablet Take 0.1 mg by mouth Acti ve furosemide (LASIX) 20 MG tablet Take 80 mg by mouth 2 times daily 02/21/2020 Active hydrALAZINE (APRESOLINE) 25 MG tablet Take 25 mg by mouth 3 times daily 07/15/2020 Active latanoprost (XALATAN) 0.005 % ophthalmic solution 07/15/2020 Active metOLazone (ZAROXOLYN) 5 MG tablet Take 5 mg by mouth once daily Active metoprolol succinate XL 24hr (TOPROL XL) 100 MG tablet Take 25 mg by mouth once daily Active pantoprazole EC (PROTONIX) 40 MG tablet Take 40 mg by mouth 2 times daily 04/20/2019 Active traMADol-acetamin ophen (ULTRACET) 37.5-325 MG tablet Take 1 tablet by mouth every 6 hours as needed Active insulin glargine (LANTUS) vial Inject 8 Units subcutaneously at bedtime Active Fluticasone-Umecl idin-Vilant (TRELEGY ELLIPTA IN) Active VENTOLIN HFA 108 (90 Base) MCG/ACT inhaler INHALE 1 INHALATION BY MOUTH EVERY 4 TO 6 HOURS NEEDED FOR SHORTNESS OF BREATH OR WHEEZING 10/08/2020 Active amoxicillin-clavu lanate (AUGMENTIN) 500-125 MG tablet Take 1 tablet by mouth every 12 hours 05/12/2021 Active KLOR-CON M20 20 MEQ tablet 04/29/2021 Active acetaminophen (TYLENOL) 325 MG tablet Take 2 (two) tablets by mouth every 6 hours as needed for Fever or Pain Maximum allowable Acetaminophen amount = 4 Grams (4000 mg) / 24 hours. 100 tablet 05/18/2021 Active oxyCODONE, immediate release, (ROXICODONE) 5 MG tablet Take 1 (one) tablet by mouth every 6 hours as needed for Pain 12 tablet 05/18/2021 Active Family History Medical History Relation Name Comments Cancer - Other Sister Relation Name Status Comments Sister Social History Tobacco Use Types Packs/Day Years Used Date Smoking Tobacco: Former Cigarettes 1.5 45 1 4 - 1988 Smokeless Tobacco: Former Chew Alcohol Use Standard Drinks/Week Comments Not Currently 0 (1 standard drink = 0.6 oz pur e alcohol) 20yrs ago Sex and Gender Information Value Date Recorded Sex Assigned at Not on file Gender Identity Not on file Sexual Orientation Not on file Last Filed Vital Signs Vital Sign Reading Time Taken Comments Blood Pressure 155/71 05/18/2021 12:09 PM CDT Pulse 66 05/18/2021 12:09 PM CDT Temperature 36.5 C (97.7 F) 05/18/2021 11:25 AM CDT Respiratory Rate 18 05/18/2021 12:09 PM CDT Oxygen Saturation 94% 05/18/2021 12:09 PM CDT Inhaled Oxygen Concentration - - Weight 93.9 kg (207 lb) 05/18/2021 7:28 AM CDT Height 177.8 cm (5' 10 ) 05/18/2021 7:28 AM CDT Body Mass Index 29.7 05/18/2021 7:28 AM CDT Plan of Treatment Health Maintenance Due Date Last Done Comments DTAP/TDAP/TD VACCINES (1 - Tdap) 06/10/1959 PNEUMOCOCCAL VACCINE 50+ (1 of 1 - PCV) 1990 ZOSTER VACCINE (1 of 2) 1990 Respiratory Syncytial Virus (RSV) Vaccine Pt: or over 60 yrs (1 - 1-dose 75+ series) 06/10/2015 COVID-19 VACCINE (3 - 2023-2 5 season) 2023 01/15/2021, 04/14/2020 INFLUENZA VACCINE (#1) 2023 10/21/2020 DEPRESSION SCREENING 02/08/2024 HEPATITIS B VACCINE Aged Out No longe r eligible based on patient's age to complete this topic HIB VACCINE Aged Out No longer eligi ble based on patient's age to complete this topic HPV VACCINE Aged Out No longer eligi ble based on patient's age to complete this topic MENINGOCOCCAL (Group B) VACCINE Aged Out No longer eligible b ased on patient's age to complete this topic MENINGOCOCCAL VACCINE Aged Out No tey muriel eligible based on patient's age to complete this topic Medical Devices Implanted Type Area Construction Coordinator Device Identifier Shelf Expiration Date Model / Serial / Lot Mesh Srg 6x3in Lg Pore Knit Mfl Smth Rnd Implanted:Qty: 1 on 03/30/2021 by Santi Angelo MD at [facility] Left: [employer] 11/04/2025 [id number] / / [id number] Mesh Srg 6x3in Lg Pore Knit Mfl Smth Rnd Implanted:Qty: 1 on 03/30/2021 by Santi Angelo MD at [facility] Right: [employer] 11/04/2025 [id number] / / [id number] Care Teams 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
--- OUTSIDE RECORDS SUMMARY | 2024-04-02 03:32 | XMS_ITS | Patient Health Summary ---
Author Organization [facility] Address [address] [place] [address] Care Team Providers Care Fashion Buyer Name Role Phone Santi Roy MD Primary Care Provider [phone] Note from [facility],non-owned Affiliates and Associated Physician Practices is amultiple site organization consisting of ambulatory clinics and hospital sitesin [place], [place], [place] and [place]. This disclosure is being madepursuant to the Care Everywhere program and may not contain all information available regarding this patient. Last updated 17.[facility] Allergies No known active allergies Medications * Be aware that medications may not be up to date on this document. Alwaysverify current medications with the patient. * atorvastatin (LIPITOR) 20 MG tablet Take 20 mg by mouth * ALPRAZolam (XANAX) 0.5 MG tablet Take 0.5 mg by mouth 2 times daily as needed * amLODIPine (NORVASC) 10 MG tablet(Started 09/12/2020) * amiodarone (CORDARONE) 200 MG tablet Take 200 mg by mouth * cloNIDine (CATAPRES) 0.1 MG tablet Take 0.1 mg by mouth * furosemide (LASIX) 20 MG tablet(Started 02/21/2020) Take 80 mg by mouth 2 times daily * hydrALAZINE (APRESOLINE) 25 MG tablet(Started 07/15/2020) Take 25 mg by mouth 3 times daily * latanoprost (XALATAN) 0.005 % ophthalmic solution(Started 07/15/2020) * metOLazone (ZAROXOLYN) 5 MG tablet Take 5 mg by mouth once daily * metoprolol succinate XL 24hr (TOPROL XL) 100 MG tablet Take 25 mg by mouth once daily * pantoprazole EC (PROTONIX) 40 MG tablet(Started 04/20/2019) Take 40 mg by mouth 2 times daily * traMADol-acetaminophen (ULTRACET) 37.5-325 MG tablet Take 1 tablet by mouth every 6 hours as needed * insulin glargine (LANTUS) vial Inject 8 Units subcutaneously at bedtime * Denhpsshdpe-Ukgmguwrd-Spjpei (TRELEGY ELLIPTA IN) * VENTOLIN HFA 108 (90 Base) MCG/ACT inhaler(Started 10/08/2020) INHALE 1 INHALATION BY MOUTH EVERY 4 TO 6 HOURS NEEDED FOR SHORTNESS OF BREATH OR WHEEZING * amoxicillin-clavulanate (AUGMENTIN) 500-125 MG tablet(Started 05/12/2021) Take 1 tablet by mouth every 12 hours * KLOR-CON M20 20 MEQ tablet(Started 04/29/2021) * acetaminophen (TYLENOL) 325 MG tablet(Started 05/18/2021) Take 2 (two) tablets by mouth every 6 hours as needed for Fever or Pain Maximum allowable Acetaminophen amount = 4 Grams (4000 mg) / 24 hours. * oxyCODONE, immediate release, (ROXICODONE) 5 MG tablet(Started 05/18/2021) Take 1 (one) tablet by mouth every 6 hours as needed for Pain Social History Tobacco Use Types Packs/Day Years Used Date Smoking Tobacco: Former Cigarettes 1.5 45 1 944 - 1988 Smokeless Tobacco: Former Chew Alcohol [...] Mass Index 29.7 05/18/2021 7:28 AM CDT Medical Devices Implanted Type Area Retail Merchandising Manager Device Identifier Shelf Expiration Date Model / Serial / Lot Mesh Srg 6x3in Lg Pore Knit Mfl Smth Rnd Implanted:Qty: 1 on 03/30/2021 by Santi Angelo MD at [facility] Left: In[employer] 11/04/2025 [id number] / / [id number] Mesh Srg 6x3in Lg Pore Knit Mfl Smth Rnd Implanted:Qty: 1 on 03/30/2021 by Santi Angelo MD at [facility] Right: Inguinal [employer] 11/04/2025 [id number] / / [id number] Procedures * CARDIAC RHYTHM STRIP ORDER(Performed 05/20/2021) * GLUCOSE - POINT OF CARE(Performed 05/18/2021) * ENDOTRACHEAL TUBE NOTE(Performed 05/18/2021) * LAPAROSCOPIC LYSIS ADHESIONS(Performed 05/18/2021) Performed for Diagnosis unknown * GLUCOSE - POINT OF CARE(Performed 05/18/2021) * POTASSIUM BLOOD(Performed 05/18/2021) Performed for Preop examination * CARDIAC RHYTHM STRIP ORDER(Performed 04/01/2021) * GLUCOSE - POINT OF CARE(Performed 03/30/2021) * ENDOTRACHEAL TUBE NOTE(Performed 03/30/2021) * REPAIR INGUINAL HERNIA(Performed 03/30/2021) Performed for Diagnosis unknown * GLUCOSE - POINT OF CARE(Performed 03/30/2021) * BASIC METABOLIC PANEL (CALCIUM TOTAL)(Performed 03/30/2021) Performed for Preop examination * CBC W/O DIFFERENTIAL(Performed 03/30/2021) Performed for Preop examination * US PELVIS LIMITED(Performed 02/20/2021) Performed for Scrotal swelling * CARDIAC RHYTHM STRIP ORDER(Performed 11/05/2020) * GLUCOSE - POINT OF CARE(Performed 11/03/2020) * ENDOTRACHEAL TUBE NOTE(Performed 11/03/2020) * AZ LAP INSERT TUNNEL IP CATH(Performed 11/03/2020) Performed for Diagnosis unknown * COMPREHENSIVE METABOLIC PANEL(Performed 11/03/2020) Performed for Preop examination * CBC W AUTO DIFFERENTIAL(Performed 11/03/2020) Performed for Preop examination * GLUCOSE - POINT OF CARE(Performed 11/03/2020) Results * CARDIAC RHYTHM STRIP ORDER (05/20/2021 4:59 PM CDT) Only the most recent of3 resultswithin the time period is included. Narrative 05/20/2021 4:59 PM CDT Ordered by an unspecified provider. Scanned Document CARDIAC SERVICES ORD ERABLES * (ABNORMAL) GLUCOSE - POINT OF CARE (05/18/2021 10:47 AM CDT) Only the most recent of6 resultswithin the time period is included. [facility] Glucose WB/POC 107(H) 70 - 106 mg/dL 05/18/2021 10:53 AM CDT [facility] Specimen Type Cap Fingerstick 2021 10:53 AM CDT [facility] Blood BLOOD SPECIMEN / Unknown 05/18/2021 10:47 AM CDT 05/18/2021 10:53 AM CDT Santi Angelo MD LAB - POINT OF CARE ORDERABLES Performing Organization Address City/State/[facility] Co de Phone Number [facility] [address] [phone] * ETT LINE PERFORMABLE (05/18/2021 10:20 AM CDT) Narrative Yasmeen Heaton APRN-CRNA - 05/18/2021 10:20 AM CDT Yasmeen Heaton APRN-CRNA 05/18/2021 10:21 AM Endotracheal Tube Placement: Patient Location: OR. Intubation Event Date/Time: 05/18/2021 9:45 AM Procedure: intubation ([id number]). Procedure Section: Sedation: under general anesthesia. Indications for Airway Management: anesthesia Induction: standard IV Patient Position: sniffing Mask Ventilation: easy. Blade Type: Bharti Blade Size: 3 Laryngoscopy View: grade 1 (full cords) Intubation Adjuncts: stylet Tube: endotracheal tube Placement: oral Tube type: cuff - inflated Tube Size (MM): 8 Depth of Insertion (CM): 23 Measured From: lips Cuff volume (mL): 8 Cuff Inflated With: air Number of Attempts: 1. Placement Verified By: direct visualization, bilateral breath sounds, chest auscultation and CO2 monitor Tube secured with: adhesive tape. Dentition unchanged? Yes Difficult Airway? No. Procedure Start Time: 05/18/2021 9:45 AM. Staff Section Anesthesia Provider: Yasmeen Heaton APRN-CRNA, Performed the procedure Yvonne Stevenson MD GENERAL ANESTHESIA O RDERABLES * POTASSIUM BLOOD (05/18/2021 7:28 AM CDT) Potassium 4.1 3.5 - 5.1 mmol/L 05/18/2021 8:00 AM CDT [facility] Blood BLOOD SPECIMEN / Unknown Venipuncture / Unknown 05/18/2021 7:28 AM CDT 05/18/2021 7:39 AM CDT Yvonne Stevenson MD LAB - CHEMISTRY DELGADO SOARES Performing Organization Address City/State/[facility] Co de Phone Number [facility] [address] [place] [address] * ETT LINE PERFORMABLE (03/30/2021 8:03 AM BUSINESS EDUCATION PROFESSOR) Narrative Lisa Mary APRN-CRNA - 03/30/2021 8:03 AM BUSINESS EDUCATION PROFESSOR Lisa Mary APRN-CRNA 03/30/2021 8:04 AM Endotracheal Tube Placement: Patient Location: OR. Intubation Event Date/Time: 03/30/2021 7:36 AM Procedure: intubation ([id number]). Procedure Section: Sedation: under general anesthesia. Indications for Airway Management: anesthesia Induction: standard IV Patient Position: sniffing and ramp/troop pillow Mask Ventilation: easy with oral airway. Blade Type: Reardon Blade Size: 2 Laryngoscopy View: grade 1 (full cords) Intubation Adjuncts: stylet Tube: endotracheal tube Placement: oral Tube type: cuff - inflated Tube Size (MM): 8 Depth of Insertion (CM): 23 Measured From: lips Cuff volume (mL): 8 Cuff Inflated With: air Number of Attempts: 1. Placement Verified By: direct visualization, bilateral breath sounds, chest auscultation and CO2 monitor CXR Findings: ETT in proper place. Tube secured with: adhesive tape. Dentition unchanged? Yes Difficult Airway? No. Procedure Start Time: 03/30/2021 7:36 AM. Staff Section Anesthesia Provider: Lisa Mary APRN-ADRIAN, Performed the procedure Zafar Martinez DO GENERAL ANESTHESIA ORDERABLES * (ABNORMAL) CBC W/O DIFFERENTIAL (03/30/2021 5:53 AM BUSINESS EDUCATION PROFESSOR) [facility] WBC 7.9 4.4 - 10.7 x10E9/L 03/30/2021 6:04 AM [facility] RBC 3.45(L) 3.80 - 5.40 x10E12/L 03/30/2021 6:04 AM [facility] Hemoglobin 10.0(L) 12.0 - 17.6 gm/dL 03/30/2021 6:04 AM [facility] Hematocrit 30.8(L) 35.2 - 51.7 % 03/30/2021 6:04 AM [facility] MCV 89.3 80.7 - 98.3 fl 03/30/2021 6:04 AM [facility] MCH 29.0 26.7 - 34.0 pg 03/30/2021 6:04 AM [facility] MCHC 32.5 30.8 - 35.9 gm/dL 03/30/2021 6:04 AM [facility] Platelet Count 209 153 - 416 x10E9/L 03/30/2021 6:04 AM [facility] RDW-CV 18.3(H) 12.1 - 14.9 % 03/30/2021 6:04 AM [facility] MPV 8.9(L) 9.4 - 12.9 fl 03/30/2021 6:04 AM [facility] Blood BLOOD SPECIMEN / Unknown Venipuncture / Unknown 03/30/2021 5:53 AM BUSINESS EDUCATION PROFESSOR 03/30/2021 6:00 AM BUSINESS EDUCATION PROFESSOR Zafar Martinez DO LAB - HEMATOLOGY OR DERABLES [facility] [address] [place] [address] * (ABNORMAL) BASIC METABOLIC PANEL (CALCIUM TOTAL) (03/30/2021 5:53 AM BUSINESS EDUCATION PROFESSOR) [facility] Glucose 108(H) 70 - 105 mg/dL 03/30/2021 6:19 AM [facility] Sodium 139 136 - 145 mmol/L 03/30/2021 6:19 AM [facility] Potassium 3.7 3.5 - 5.1 mmol/L 03/30/2021 6:19 AM [facility] Chloride 103 98 - 107 mmol/L 03/30/2021 6:19 AM [facility] CO2 24 23 - 31 mmol/L 03/30/2021 6:19 AM [facility] Calcium 8.7 8.4 - 10.4 mg/dL 03/30/2021 6:19 AM [facility] Anion Gap 12 8 - 18 mmol/L 03/30/2021 6:19 AM [facility] BUN 99(H) 8.4 - 25.7 mg/dL 03/30/2021 6:19 AM [facility] Creatinine 4.01(H) 0.72 - 1.25 mg/dL 03/30/2021 6:19 AM [facility] eGFR by MDRD 14 mL/min/1.7 3m2 03/30/2021 6:19 AM [facility] eGFR by MDRD 18 mL/min/1.7 3m2 03/30/2021 6:19 AM [facility] Blood BLOOD SPECIMEN / Unknown Venipuncture / Unknown 03/30/2021 5:53 AM BUSINESS EDUCATION PROFESSOR 03/30/2021 6:00 AM BUSINESS EDUCATION PROFESSOR Zafar Martinez DO LAB - CHEMISTRY ORD ERABLES [facility] [address] [place] [address] * US PELVIS LIMITED (02/20/2021 1:41 PM BUSINESS EDUCATION PROFESSOR) Anatomical Region Laterality Modality Pelvis Ultrasound 02/20/2021 2:08 PM BUSINESS EDUCATION PROFESSOR Impressions 02/20/2021 2:32 PM BUSINESS EDUCATION PROFESSOR IMPRESSION: 1.Area of mixed echogenicity adjacent to the right testis is 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 2.A similar mixed echogenic structure seen passing within the left inguinal canal, likely representing mesentery. 3.No visible bowel peristalsis within the inguinal canal bilaterally. Dictated by Lucas Ricketts MD (radiology therapist). I, Dr. VASQUEZ MONAHAN have personally reviewed and interpreted this examination/study. This report was electronically signed by VASQUEZ MONAHAN on 02/20/2021 2:32 PM . Narrative 02/20/2021 2:32 PM BUSINESS EDUCATION PROFESSOR EXAMINATION: Scrotal and inguinal sonogram HISTORY: N50.89: Scrotal swelling COMPARISON: No comparison images are available in the PACS system at the time of this dictation. FINDINGS: Area of mixed echogenicity lateral to the right testis may represent mesentery extending through the inguinal canal. There is no visible peristalsis. There is a right-sided hydrocele. A mixed echogenic structure is seen passing through the left inguinal canal, which may represent mesentery. The visualized right testicle is normal in echotexture. The left testis is not well imaged on this study. The right epididymis is normal in size. The left epididymis is not well imaged on this study. Procedure Note Vasquez Monahan MD - 02/20/2021 EXAMINATION: Scrotal and inguinal sonogram HISTORY: N50.89: Scrotal swelling COMPARISON: No comparison images are available in the PACS system at the time of this dictation. FINDINGS: Area of mixed echogenicity lateral to the right testis may represent mesentery extending through the inguinal canal. There is no visible peristalsis. There is a right-sided hydrocele. A mixed echogenicstructure is seen passing through the left inguinal canal, which may represent mesentery. The visualized right testicle is normal in echotexture. The left testis is not well imaged on this study. The right epididymis is normal in size. The left epididymis is not well imaged on this study. 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 2.A similar mixed echogenic structure seen passing within the left inguinal canal, likely representing mesentery. 3.No visible bowel peristalsis within the inguinal canal bilaterally. Dictated by Lucas Ricketts MD (radiology therapist). I, Dr. VASQUEZ MONAHAN have personally reviewed and interpreted this examination/study. This report was electronically signed by VASQUEZ MONAHAN on 02/20/2021 2:32 PM . Santi Angelo MD ORDERABLES * ETT LINE PERFORMABLE (11/03/2020 7:56 AM CDT) Narrative Cori Orellana APRN-CRNA - 11/03/2020 7:56 AM CDT Cori Orellana APRN-CRNA 11/03/2020 7:57 AM Endotracheal Tube Placement: Patient Location: OR. Intubation Event Date/Time: 11/03/2020 7:36 AM Procedure: intubation ([id number]). Procedure Section: Sedation: under general anesthesia. Indications for Airway Management: anesthesia Procedure pretreatments used? No Induction: modified rapid sequence Patient Position: sniffing Mask Ventilation: easy with oral airway. Blade Type: Bharti Blade Size: 4 Laryngoscopy View: grade 1 (full cords) Intubation Adjuncts: stylet Tube: endotracheal tube Placement: oral Tube type: cuff - inflated Tube Size (MM): 8 Depth of Insertion (CM): 22 Measured From: lips Cuff volume (mL): 6 Cuff Inflated With: air Number of Attempts: 1. Placement Verified By: direct visualization, bilateral breath sounds, chest auscultation and CO2 monitor Tube secured with: adhesive tape. Dentition unchanged? Yes Difficult Airway? No. Procedure Start Time: 11/03/2020 7:36 AM. Staff Section Anesthesia Provider: Cori Orellana APRN-CRNA, Performed the procedure Provider #1: Yvonne Stevenson MD. Additional Comments: Teeth, lips, and tongue as preop following easy and atraumatic DL and intubation x1 attempt. . Yvonne Stevenson MD GENERAL ANESTHESIA O RDERABLES * (ABNORMAL) CBC W AUTO DIFFERENTIAL (11/03/2020 6:38 AM CDT) WBC 6.4 4.4 - 10.7 x10E9/L 11/03/2020 6:45 AM CDT [facility] WBC Corrected 11/03/2020 6:45 AM CDT [facility] RBC 2.47(L) 3.80 - 5.40 x10E12/L 11/03/2020 6:45 AM CDT [facility] Hemoglobin 8.1(L) 12.0 - 17.6 gm/dL 11/03/2020 6:45 AM CDT [facility] Hematocrit 24.0(L) 35.2 - 51.7 % 11/03/2020 6:45 AM CDT [facility] MCV 97.2 80.7 - 98.3 fl 11/03/2020 6:45 AM CDT [facility] MCH 32.8 26.7 - 34.0 pg 11/03/2020 6:45 AM CDT [facility] MCHC 33.8 30.8 - 35.9 gm/dL 11/03/2020 6:45 AM CDT [facility] Platelet Count 160 153 - 416 x10E9/L 11/03/2020 6:45 AM CDT [facility] RDW-CV 13.4 12.1 - 14.9 % 11/03/2020 6:45 AM CDT [facility] MPV 8.7(L) 9.4 - 12.9 fl 11/03/2020 6:45 AM CDT [facility] Neutrophils % 72.4 44.0 - 73.0 % 11/03/2020 6:45 AM CDT [facility] Lymphocytes % 12.5(L) 20.0 - 43.0 % 11/03/2020 6:45 AM CDT [facility] Monocytes % 10.6 5.0 - 13.0 % 11/03/2020 6:45 AM CDT [facility] Eosinophils % 3.1 0.0 - 6.0 % 11/03/2020 6:45 AM CDT [facility] Basophils % 0.8 0.0 - 2.0 % 11/03/2020 6:45 AM CDT [facility] Immature Granulocytes 0.6 0 - 1 % 11/03/2020 6:45 AM CDT [facility] Neutrophil Absolute 4.62 2.01 - 7.14 x10E9/L 11/03/2020 6:45 AM CDT [facility] Lymphocytes Absolute 0.80(L) 1.07 - 3.94 x10E9/L 11/03/2020 6:45 AM CDT [facility] Monocytes Absolute 0.68 0.26 - 1.07 x10E9/L 11/03/2020 6:45 AM CDT [facility] Eosinophils Absolute 0.20 0 - 0.47 x10E9/L 11/03/2020 6:45 AM CDT [facility] Basophils Absolute 0.05 0 - 0.08 x10E9/L 11/03/2020 6:45 AM CDT [facility] Immature Granulocytes Absolute 0.04 0.00 - 0.06 x10E9/L 11/03/2020 6:45 AM CDT [facility] nRBC Auto 0 /100 WBC 11/03/2020 6:45 AM CDT [facility] Blood BLOOD SPECIMEN / Unknown Venipuncture / Unknown 11/03/2020 6:38 AM CDT 11/03/2020 6:41 AM CDT Yvonne Stevenson MD LAB - HEMATOLOGY ORD ERABLES [facility] [address] [place] [address] * (ABNORMAL) COMPREHENSIVE METABOLIC PANEL (11/03/2020 6:38 AM CDT) Glucose 95 70 - 105 mg/dL 11/03/2020 6:58 AM CDT [facility] Sodium 141 136 - 145 mmol/L 11/03/2020 6:58 AM CDT [facility] Potassium 3.9 3.5 - 5.1 mmol/L 11/03/2020 6:58 AM CDT [facility] Chloride 106 98 - 107 mmol/L 11/03/2020 6:58 AM CDT [facility] CO2 24 23 - 31 mmol/L 11/03/2020 6:58 AM CDT [facility] Calcium 9.0 8.4 - 10.4 mg/dL 11/03/2020 6:58 AM CDT [facility] Anion Gap 11 8 - 18 mmol/L 11/03/2020 6:58 AM CDT [facility] BUN 84(H) 8.4 - 25.7 mg/dL 11/03/2020 6:58 AM CDT [facility] Creatinine 4.29(H) 0.72 - 1.25 mg/dL 11/03/2020 6:58 AM CDT [facility] Alkaline Phosphatase 52 40 - 150 U/L 11/03/2020 6:58 AM CDT [facility] ALT 35 0 - 61 U/L 11/03/2020 6:58 AM CDT [facility] AST 28 5 - 34 U/L 11/03/2020 6:58 AM CDT [facility] Protein Total 6.4 6.4 - 8.3 gm/dL 11/03/2020 6:58 AM CDT [facility] Albumin 3.5 3.2 - 4.6 gm/dL 11/03/2020 6:58 AM CDT [facility] Bilirubin Total 0.5 0.2 - 1.2 mg/dL 11/03/2020 6:58 AM CDT [facility] eGFR by MDRD 13 mL/min/1.7 3m2 11/03/2020 6:58 AM CDT [facility] eGFR by MDRD 16 mL/min/1.7 3m2 11/03/2020 6:58 AM CDT [facility] Blood BLOOD SPECIMEN / Unknown Venipuncture / Unknown 11/03/2020 6:38 AM CDT 11/03/2020 6:41 AM CDT Yvonne Stevenson MD [facility] Organization Address City/State/[facility] Co de Phone Number [facility] [address] [place], [place] [phone] Care Teams Fashion Buyer Relationship Specialty Start Date End Date Santi Roy MD [address] [place] [address] PCP - General 12/18/19
--- OUTSIDE RECORDS SUMMARY | 2024-04-02 03:32 | XMS_ITS | Clinical Summary ---
Author Organization [facility] Address [address] [place] [phone] Phone Care Team Providers Care Rapier Insertion Loom Fixer Name Role Phone Unavailable Primary Care Provider Unavailabl e Allergies No known active allergies Medications Medication Sig Dispensed Refills Start Date End Date Status pantoprazole (PROTONIX) 40 MG EC tablet Take 40 mg by mouth 2 (two) times a day Active amLODIPine (NORVASC) 5 MG tablet Take by mouth 1 (one) time each day Active atorvastatin (LIPITOR) 20 MG tablet Take 20 mg by mouth 1 (one) time each day Active cloNIDine (CATAPRES) 0.1 MG tablet Take 0.1 mg by mouth 2 (two) times a day Active insulin glargine (LANTUS) 100 UNIT/ML injection Inject 10 Units under the skin every night Active traMADol-acetaminop hen (ULTRACET) 37.5-325 MG per tablet Take 1 tablet by mouth every 6 (six) hours if needed for moderate pain Active ALPRAZolam (XANAX) 0.5 MG tablet Take 0.5 mg by mouth 2 (two) times a day if needed for anxiety Active metOLazone (ZAROXOLYN) 5 MG tablet Take 5 mg by mouth 1 (one) time each day Active calcitriol (ROCALTROL) 0.25 MCG capsule Take 1 capsule (0.25 mcg total) by mouth 1 (one) time each day 90 capsule 3 05/20/2020 Active Fluticasone-Umeclid in-Vilant (Trelegy Ellipta) 100-62.5-25 MCG/INH aerosol powder Inhale Active Albuterol Sulfate (VENTOLIN HFA IN) Inhale 30 mg Activ e hydrALAZINE (APRESOLINE) 25 MG tablet Take 25 mg by mouth 3 (three) times a day Active amiodarone (PACERONE) 200 MG tablet Take 200 mg by mouth 2 (two) times a day Active metoprolol succinate XL (TOPROL-XL) 100 MG 24 hr tablet Take 100 mg by mouth 1 (one) time each day Do not crush or chew. Active ferrous sulfate 325 (65 Fe) MG tablet Take 325 mg by mouth 1 (one) time each day with breakfast Active KLOR-CON 20 MEQ CR tablet TAKE 1 TABLET DAILY 30 tablet 11 06/22/2021 Active furosemide (LASIX) 80 MG tablet Take 1 tablet (80 mg total) by mouth 1 (one) time each day 90 tablet 1 01/10/2024 Active Hospital, Clinic, or Other Facility Administered Medication Ordered Dose Route Frequency Start Date End Date Status iron sucrose (VENOFER) 500 mg in sodium chloride 0.9 % 100 mL IVPBIndications:Iron deficiency anemia, not otherwise specified 500 mg IV Once 08/27/2020 Activ e Active Problems Problem Noted Date Diagnosed Date Fluid retention 09/16/2020 End stage renal disease 01/16/2020 Iron deficiency anemia 01/16/2020 Type 2 diabetes mellitus wit h other diabetic kidney complication 01/16/2020 Hypertensive chronic kidney disease, unspecified, 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, or unspecified 01/16/2020 Resolved Problems Problem Noted Date Diagnosed Date Resolved Date Secondary hyperparathyroidism of renal origin 05/21/19 21 10/31/2020 Paroxysmal atrial fibrillation 01/16/2020 04/09/2020 Hyperlipidemia 01/16/2020 10/31/2020 Encounters Date Type Department Care Team Description 01/10/2024 Orders Only [facility] [address] [place], [place] [id number] Lottie Moreno NP from Last 3 Months Family History Medical History Relation Comments Cancer Father Diabetes Mother Heart disease Mother Relation Status Comments Father Other Lung Cancer Mother Social History Tobacco Use Types Packs/Day Years Used Date Smoking Tobacco: Former Cigarettes 1.5 50 0 02/07/1946 - 02/08/1996 Smokeless Tobacco: Never Tobacco Cessation:Counseling Given: Not Answered Alcohol Use Standard Drinks/Week Comments Never 0 (1 standard drink = 0.6 oz pur e alcohol) AUDIT-C Answer Date Recorded Q1: How often do you have a drink containing alc ohol? Never 01/16/2020 Average Number of Drinks Not on file 020 Frequency of Binge Drinking Not on file 10/2019 Sex and Gender Information Value Date Recorded Sex Assigned at Not on file Gender Identity Not on file Sexual Orientation Not on file Last Filed Vital Signs Vital Sign Reading Time Taken Comments Blood Pressure 151/64 09/16/2020 10:23 AM CDT Pulse 57 09/16/2020 10:23 AM CDT Temperature 36.8 C (98.3 F) 08/27/2020 2:36 PM CDT Respiratory Rate - - Oxygen Saturation - - Inhaled Oxygen Concentration - - Weight 109 kg (240 lb) 09/16/2020 10:23 AM CDT Height 177.8 cm (5' 10 ) 06/29/2023 8:55 AM CDT Body Mass Index 34.44 09/16/2020 10:23 AM CDT Plan of Treatment Health Maintenance Due Date Last Done Comments Pneumococcal PPSV23/PCV13 65 + Years / High and Highest Risk (1 of 4 - PCV) 1946 Diabetic Foot Exam 1950 Ophthalmology Exam 1950 Influenza Vaccine (#1) 2023
--- OUTSIDE RECORDS SUMMARY | 2024-04-02 03:32 | XMS_ITS | Referral Summary ---
Author Organization [email or web address] Address [address] [place] [address] Care Team Providers Care Maid Housekeeper Name Role Phone Santi Roy MD Primary Care Provider [phone] Source Comments [email or web address],non-owned Affiliates and Associated Physician Practices is amultiple site organization consisting of ambulatory clinics and hospital sitesin [place], [place], [place] and [place]. This disclosure is being madepursuant to the Care Everywhere program and may not contain all information available regarding this patient. Last updated 17.[email or web address] Allergies No known active allergies Medications * [...] needed for Pain 12 tablet 05/18/2021 Active Social History Tobacco Use Types Packs/Day Years [...] 05/18/2021 7:28 AM CDT Plan of Treatment Not on file Medical Devices Implanted Type Area Fulfillment Specialist Device Identifier Shelf Expiration Date Model / Serial / Lot Mesh Srg 6x3in Lg Pore Knit Mfl Smth Rnd Implanted:Qty: 1 on 03/30/2021 by Santi Angelo MD at [facility] Left: [employer] 11/04/2025 [id number] / / [id number] Mesh Srg 6x3in Lg Pore Knit Mfl Smth Rnd Implanted:Qty: 1 on 03/30/2021 by Santi Angelo MD at [facility] Right: [employer] 11/04/2025 [id number] / / [id number] Care Teams Maid Housekeeper Relationship Specialty Start Date End Date Santi Roy MD [address] [place] [address] PCP - General 12/18/19
--- OUTSIDE RECORDS SUMMARY | 2024-04-02 03:33 | XMS_ITS | Continuity of Care Document ---
Author Organization [facility] Address [address] utichristiano Mitchell [address] [place] [address] Phone Care Team Providers Care Backup Administrative Coordinator Name Role Phone Martha Prasad Unavailable Unavailable [...] Date Provider Providers Copied on Encounter [facility], [address] [place] [address] [address], [place], [place], [id number], [place] tel:[phone] [facility] Corporate Center No Information 0 Shanice Thomas. [facility] [place] , [address], [place], [address], [place]. tel:[phone] Referring Provider: Nash [facility] [address], [place], [address]. tel:[phone] Office/outpat ient Visit, Est [facility], [address] [place] [address] [address], [place], [place], [id number], [place] tel:[phone] [facility] [place] No Information Dec-0 3-200 9 Shanice Thomas. [address] [facility] , [address], [place], [place], [facility], . tel:[phone] [facility], [address] [place] [address] [address], [place], [place], [id number], [place] tel:[phone] [facility] No Information Alejandro-3 0-200 9 Shanice Landn. [address] , [address], [place], [place], [facility], . tel:[phone] Referring Provider: Martha Arboleda, [address] [place], [place] [address]ate Center [address], [place], [place], [facility]. tel:[phone] [facility], [address] [place] [address] [address], [place], [place], [id number], tel:[phone] [facility] No Information Alejandro-0 4-200 9 Shanice Bundy [address] [place], [place] [address]ate Center , [address], [place], [place], [facility], . tel:[phone] Referring Provider: Martha Arboleda, [address] [place], [place] [address]ate Center [address], [place], [place], [facility]. tel:[phone] Office/outpat ient Visit, [facility], [address] [place] [address] [address], [place], [place], [id number], [place] tel:[phone] [facility] Corporate Center No Information Dec-1 1-200 8 Shanice Thomas. [address] [place], [place] [address]ate Center , [address], [place], [place], [facility], . tel:[phone] Office/outpat ient Visit, [facility], [address] [place] [address] [address], [place], [place], [id number], [place] tel:[phone] [facility] No Information Alejandro-1 9-200 8 Shanice Thomas. [address] [facility] , [address], [place], [place], [facility], . tel:[phone] Office/outpat ient Visit, [facility], [address] [place] [address] [address], [place], [place], [id number], tel:[phone] [facility] [place] No Information Dec-2 0-200 7 Shanice Landn. [address] [facility] , [address], [place], [facility], [place]. tel:[phone] Office/outpat ient Visit, [facility], [address] [place] [address] [address], [place], [place], [id number], [place] tel:[phone] [facility] [place] No Information 1200 7 Shanice Thomas. [address] [facility] [place] , [address], [place], [place], [facility], [place]. tel:[phone] [facility], [address] [place] [address] [address], [place], [place], [id number], tel:[phone] SEC [facility] No Information Jan- 9200 6 Shanice Thomas. [address] [facility] , [address], [place], [place], [facility], . tel:[phone] Referring Provider: Nash [facility] [address], [place], [facility]. tel:[phone] Family History Family Member Type Diagnosis Age At Onset No Information Payers Payer name Insurance type Covered republican ID Authoriza tidalila(s) [place] [id number] Social History Type Description Quantity Date Captured [...]
--- OUTSIDE RECORDS SUMMARY | 2024-04-02 03:33 | XMS_ITS | Encounter Summary ---
Author Organization [facility] Address [address] [place] [address] Care Team Providers Care Senior Wind Energy Consultant Name Role Phone Santi Roy MD Primary Care Provider [phone] Encounter Details Date Type Department Care Team (Late st Contact Info) Description 03/17/2021 Telephone [facility] [address] [place] [address] Santi Angelo MD [address] OF [facility] [id number] Social History Tobacco Use Types Packs/Day Years Used Date Smoking Tobacco: Former Cigarettes 1.5 45 1 944 - 1989 Smokeless Tobacco: Former Chew Alcohol Use Standard Drinks/Week Comments Not Currently 0 (1 standard drink = 0.6 oz pur e alcohol) 20yrs ago Sex and Gender Information Value Date Recorded Sex Assigned at Not on file Gender Identity Not on file Sexual Orientation Not on file COVID-19 Exposure Response Date Recorded In the last month, have you been in contact with someone who was confirmed or suspected to have Coronavirus / COVID-19? No / Unsure 02/20/2021 12:39 PM STAFF [facility] OFFICER documented as of this encounter Plan of Treatment Not on file documented as of this encounter Visit Diagnoses Not on filedocumented in this encounter Care Teams Senior Wind Energy Consultant Relationship Specialty Start Date End Date Santi Roy MD [address] [place] [address] PCP - General 12/18/19 documented as of this encounter
--- OUTSIDE RECORDS SUMMARY | 2024-04-02 03:33 | XMS_ITS | Encounter Summary ---
Author Organization [facility] Address [address] [facility] [place] [address] Care Team Providers Care Fur Grader Name Role Phone Santi Roy MD Primary Care Provider [phone] Encounter Details Date Type Department Care Team (Late st Contact Info) Description 03/04/2021 Telephone [facility] [address] [place] [address] Santi Angelo MD [address] [phone] Social History Tobacco Use Types Packs/Day Years [...] COVID-19? No / Unsure 02/20/2021 12:39 PM CASH SURRENDER CALCULATOR documented as of this encounter Plan of Treatment Not on file documented as of this encounter Visit Diagnoses Not on filedocumented in this encounter Care Teams Fur Grader Relationship Specialty Start Date End Date Santi Roy MD [address] [place] [address] PCP - General 12/18/19 documented as of this encounter
--- OUTSIDE RECORDS SUMMARY | 2024-04-02 03:33 | XMS_ITS | Encounter Summary ---
Author Organization [facility] Address [address] [facility] [address] [place] [address] Care Team Providers Care Children Librarian Name Role Phone Santi Roy MD Primary Care Provider [phone] Encounter Details Date Type Department Care Team (Late st Contact Info) Description 09/29/2020 Telephone [facility] [address] [place] [address] Santi Angelo MD [address] OF [facility] [place] [address] Social History Tobacco Use Types Packs/Day Years Used Date Smoking Tobacco: Former Cigarettes 1.5 45 Smokeless Tobacco: Former Chew Alcohol Use Standard Drinks/Week Comments Not Currently 0 (1 standard drink = 0.6 oz pur e alcohol) 20yrs ago Sex and Gender Information Value Date Recorded Sex Assigned at Not on file Gender Identity Not on file Sexual Orientation Not on file documented as of this encounter Plan of Treatment Not on file documented as of this encounter Visit Diagnoses Not on filedocumented in this encounter Care Teams Children Librarian Relationship Specialty Start Date End Date Santi Roy MD [address] [place] [address] PCP - General 12/18/19 documented as of this encounter
--- OUTSIDE RECORDS SUMMARY | 2024-04-02 03:33 | XMS_ITS | Encounter Summary ---
Author Organization [facility] Address [address] [place] [address] Care Team Providers Care Hand Packer Name Role Phone Santi Roy MD Primary Care Provider Itz Boyd MD Unavailable [phone] Joe Arce MD Unavailable Encounter Details Date Type Department Care Team (Late st Contact Info) Description 03/05/2024 [facility] Post Discharge Follow up phone call [address] [address] Jana Sebastian, PAKO Social History Tobacco Use Types Packs/Day Years Used Date Smoking Tobacco: Former Cigarettes 0.1 50 0 02/23/1942 - 02/24/1992 Smokeless Tobacco: Former Alcohol Use Standard Drinks/Week Comments Not Currently 0 (1 standard drink = 0.6 oz pur e alcohol) [facility] Utilities Answer Date Recorded In the past 12 months has Carbonated Content, gas, oil, or water company threatened to shut off services in your home? No 03/01/2024 Social Connection and Isolat ion Panel [NHANES] Answer Date Recorded In a typical week, how many times do you talk on the phone with family, friends, or neighbors? More than three times a week 03/01/2024 How often do you get togethe r with friends or relatives? More than three times a week 03/01/2024 How often do you attend chur ch or amish services? Never 03/01/2024 Do you belong to any clubs o r organizations such as cheondoism groups, unions, fraternal or athletic groups, or school groups? No 03/01/2024 How often do you attend meet ings of the clubs or organizations you belong to? Never 03/01/2024 Are you , , di vorced, , never , or living with a partner? 03/01/2024 AUDIT-C Answer Date Recorded Q1: How often do you have a drink containing alcohol? Never 02/29/2024 Q2: How many drinks containi ng alcohol do you have on a typical day when you are drinking? Patient does not drink Q3: How often do you have si x or more drinks on one occasion? Never 02/29/2024 Overall Financial Resource Strain (CARDIA) Answe r Date Recorded How hard is it for you to pa y for the very basics like food, housing, medical care, and heating? Not hard at all 03/01/2024 Hunger Vital Sign Answer Date Recorded Within the past 12 months, y ou worried that your food would run out before you got the money to buy more. Never true 03/01/19 25 Within the past 12 months, t he food you bought just didn't last and you didn't have money to get more. Never true 03/01/2024 PRAPARE - Transportation Answer Date Re corded In the past 12 months, has l ack of transportation kept you from medical appointments or from getting medications? No 02/08 In the past 12 months, has l ack of transportation kept you from meetings, work, or from getting things needed for daily living? No 03/01/2024 Housing Stability Vital Sign Answer Livan e Recorded In the last 12 months, was t here a time when you were not able to pay the mortgage or rent on time? No 03/01/2024 In the past 12 months, how m any times have you moved where you were living? 0 03/01/2024 At any time in the past 12 m [facility], were you homeless or living in a usp (including now)? No 03/01/2024 Personal Safety Answer Date Recorded Have you ever been in or are you currently in a harmful physical or emotional relationship or is someone making you feel afraid or unsafe? 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 Male 1:08 PM MANAGER STORE Gender Identity Not on file Sexual Orientation Not on file documented as of this encounter Plan of Treatment Not on file documented as of this encounter Visit Diagnoses Not on filedocumented in this encounter Care Teams Hand Packer Relationship Specialty Start Date End Date Santi Roy MD [address] [facility] [address] [place] [address] PCP - General Family Medicine 02/23/19 Itz Boyd MD [address] [facility] [address] [place] [address] Consulting Physician Nephrology 07/26/23 Joe Arce MD [address] [facility] [address] [facility] [address] [place] [address] Consulting Physician Cardiology 03/02/24 documented as of this encounter
--- OUTSIDE RECORDS SUMMARY | 2024-04-02 03:33 | XMS_ITS | Referral Summary ---
Author Organization [place] [address] [place] [phone] Care Team Providers Care Conventional Machinist Name Role Phone Santi Roy MD Primary Care Provider Itz Boyd MD Unavailable [phone] Joe Arce MD Unavailable Encounters Date Type Department Care Team Description 03/08/2024 Telephone [facility] Medical [facility] Cardiology [address] [place] [address] [address] [place] [phone] Maira Sifuentes NP 03/08/2024 2:00 PM PATIENT SERVICES REPRESENTATIVE Office Visit [facility] [place] [address] [place] [phone] Maira Sifuentes NP Atrial fibrillation with rapid ventricular response (CMS/HCC) (HCC) (Primary Dx); Thrombus of left atrial appendage; Hospital discharge follow-up 03/06/2024 Orders Only [facility] Medical [facility] Cardiology [address] [place] [address] [address] [place] [phone] Catherine Flores MD 03/05/2024 [facility] Post Discharge Follow up phone call [address] [address] Jana Sebastian RN 02/29/2024 7:52 PM PATIENT SERVICES REPRESENTATIVE - 03/02/2024 3:21 PM PATIENT SERVICES REPRESENTATIVE Hospital Encounter [address] [address] Chava Weathers DO Atrial fibrillation with rapid ventricular response (CMS/HCC) (HCC) (Primary Dx) Discharge Disposition: Discharge to home or self care 03/01/[address] [facility] Cardiology [address] [facility] [address] [place] [phone] Pj Abreu MD 02/29/[address] [facility] Cardiology [address] [place] [address] [address] [place] [phone] Pj Abreu MD 02/23/2024 Orders Only [facility] [address] [place] [address] Pj Abreu MD 02/21/2024 11:15 AM PATIENT SERVICES REPRESENTATIVE Procedure visit [facility] Cardiology [address] [place] [address] [address] [place] [phone] PAF (paroxysmal atrial fibrillation) (CMS/HCC) (HCC) 02/20/[address] [facility] Cardiology [address] [place] [address] [address] [place] [phone] Wilfred Charles MD from Last 3 Months Allergies No known active allergies Medications cloNIDine (CATAPRES) 0.1 mg tablet Take 1 tablet (0.1 mg total) by mouth 2 (two) times a day 9 Active atorvastatin (LIPITOR) 20 mg tablet Take 1 tablet (20 mg total) by mouth daily 9 Active latanoprost (XALATAN) 0.005 % ophthalmic solution Administer 1 drop into both eyes nightly 9 Active ALPRAZolam (XANAX) 0.5 mg tablet TAKE ONE TABLET TWICE DAILY NEEDED [address] (PROTONIX) 40 mg EC tabletIndications :GI Bleed Take 1 tablet (40 mg total) by mouth 2 (two) times a day 180 tablet 0 Active Lantus Solostar U-100 Insulin 100 unit/mL (3 mL) insulin pen Inject 17 Units under the skin nightly 0 Active Trelegy Ellipta 100-62.5-25 mcg inhaler 1 puff daily 0 Active furosemide (LASIX) 20 mg tabletIndications :Bilateral lower extremity edema Take 1 tablet (20 mg total) by mouth 2 (two) times a day 180 tablet 3 1 Active OneTouch Ultra Test strip 4 Active OneTouch Delica Plus Lancet 30 gauge misc 4 Active metoprolol XL (TOPROL-XL) 200 mg extended release tablet Take 1 tablet (200 mg total) by mouth daily 30 tablet 5 Active apixaban (ELIQUIS) 2.5 mg tabletIndications :atrial fibrillation Take 1 tablet (2.5 mg total) by mouth 2 (two) times a day 60 tablet 5 Active dilTIAZem CD (CARDIZEM CD) 300 mg 24 hr capsule Take 1 capsule (300 mg total) by mouth daily 30 capsule 5 Active Active Problems Problem Noted Date Diagnosed Date Atrial fibrillation with rap id ventricular response ([facility]) 02/29/2024 ESRD (end stage renal disease) ([facility]) 024 ESRD (end stage renal disease) on dialysis 07/27 Fluid retention 09/16/2020 End stage renal disease ([facility]) 01/16/2020 Assessment & Plan (07/29/2023 11:34 AM CDT): Impression: patient requiring transition to hemodialysis from peritoneal dialysis. Patient denies any DVTs/ PE or hypercoagulable state or any trauma to the upper extremities. He is right-hand dominant. Patient underwent upper extremity venous mapping which revealed sizable veins suitable for fistula creation to bilateral upper extremities. Plan: Attempted to schedule patient for AV graft with Accuseal creation, possible fistula creation with Tunneled dialysis catheter insertion to avoid multiple surgical interventions. Patient will require cardiac clearance. Patient states he has so much do that he is unsure he will make it to his medical appointment clerk prior to his routine appointment already scheduled in October. - Will plan for tunneled dialysis catheter Insertion. Risks of the procedure communicate with the patient to include bleeding, infection, perforation, hemo thorax/pneumothorax, DVT. Patient understands these risks and wishes to proceed. - patient to call the office after receiving cardiac clearance to schedule creation. Iron deficiency anemia 01/16/2020 Pulmonary hypertension 05/30/2019 PAF (paroxysmal atrial fibrillation) ([facility]) 0 04/27/2019 Pneumonia of left lower lobe due to Streptococcus pneumoniae ([facility]) 04/20/2019 Assessment & Plan (04/20/2019 12:12 PM CDT): Patient presented with Streptococcus pneumonia sepsis as well as bloodstream infection of respiratory source. He has received 7 days of appropriate therapy with ceftriaxone with resolution of symptoms. Given that his presentation was due to pneumonia, he has completed a 7 day course of therapy to will recommend to discontinue antibiotics at discharge. Need for vaccination against Streptococcus pneum oniae 04/20/2019 Assessment & Plan (04/20/2019 12:13 PM CDT): Discussed with patient and , they recall that he received 1 pneumococcal vaccine previously. Advised patient to discuss with PCP the need for likely Pneumovax. His immunization record is not available to me otherwise he would have benefited from receiving pneumococcal vaccination while inpatient. Gastrointestinal hemorrhage 04/11/2019 Overview (04/13/2019): Added automatically from request for surgery [id number] Gastrointestinal hemorrhage associated with casandra ritis 04/11/2019 Overview (04/15/2019): Added automatically from request for surgery [id number] Left carotid bruit 02/23/2019 Bilateral lower extremity edema 02/23/2019 Hyperlipidemia associated with type 2 diabetes m ellitus 02/23/2019 SALOME on CPAP 02/23/2019 Hypertension associated with stage 3 chronic kidney disease due to type 2 diabetes mellitus 02/23/2019 Atypical chest pain 02/23/2019 Type 2 diabetes mellitus with hyperglycemia ([facility]) 02/23/2019 Hyperlipidemia 02/23/2019 Assessment & Plan (07/29/2023 11:35 AM CDT): Impression: Chronic and stable. Plan: Continue atorvastatin. Hypertension 02/23/2019 Assessment & Plan (07/29/2023 11:35 AM CDT): Impression: Chronic stable. Plan: Continue amlodipine, clonidine, hydralazine, metoprolol Osteoarthritis of shoulder 04/09/2011 Arthralgia of shoulder 01/11/2011 Social History Tobacco Use Types Packs/Day Years Used Date Smoking Tobacco: Former Cigarettes 0.1 50 0 02/23/1942 - 02/24/1992 Smokeless Tobacco: Former Tobacco Cessation:Counseling Given: Not Answered Alcohol Use Standard Drinks/Week Comments Not Currently 0 (1 standard drink = 0.6 oz pur e alcohol) [facility] Utilities Answer Date Recorded In the past 12 months has th e electric, gas, oil, or water company threatened to [...] often do you attend chur ch or taoist services? Never 03/01/2024 Do you belong to any clubs o r organizations such as tenriism groups, unions, fraternal or athletic groups, or [...] any time in the past 12 m [facility], were you homeless or living in a longterm (including now)? No 03/01/2024 Personal Safety Answer Date Recorded Have you ever been in or are you currently in a harmful physical or emotional relationship or is someone making you feel afraid or unsafe? 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 Male 1:08 PM PATIENT SERVICES REPRESENTATIVE Gender Identity Not on file Sexual Orientation Not on file Last Filed Vital Signs Vital Sign Reading Time Taken Comments Blood Pressure 126/60 03/08/2024 1:55 PM PATIENT SERVICES REPRESENTATIVE Pulse 100 03/08/2024 1:55 PM PATIENT SERVICES REPRESENTATIVE Temperature 36.6 C (97.9 F) 03/02/2024 12:30 PM PATIENT SERVICES REPRESENTATIVE Respiratory Rate 18 03/02/2024 12:30 PM PATIENT SERVICES REPRESENTATIVE Oxygen Saturation 96% 03/08/2024 1:55 PM PATIENT SERVICES REPRESENTATIVE Inhaled Oxygen Concentration - - Weight 109.3 kg (241 lb) 03/08/2024 1:55 PM PATIENT SERVICES REPRESENTATIVE Height 177.8 cm (5' 10 ) 03/08/2024 1:55 PM PATIENT SERVICES REPRESENTATIVE Body Mass Index 34.58 03/08/2024 1:55 PM PATIENT SERVICES REPRESENTATIVE Plan of Treatment Not on file Medical Devices Implanted Type Area Alligator Hunter Device Identifier Shelf Expiration Date Model / Serial / Lot Total Joint Bilateral: Knee Total Right: Shoulder [employer]low Embosafe 15.5fr 24cm Basic 2 Lumen Kit Catheter [id number] - [id number] Implanted:Qty: 1 on 08/04/2023 by Harvinder Fernando MD at [facility] [employer] 06/06/2025 [id number] / / [id number] Procedures Procedure Name Priority Date/Time Associated Diagnosis Comments POCT GLUCOSE DEVICE Routine 03/02/2024 1 2:07 PM PATIENT SERVICES REPRESENTATIVE POCT GLUCOSE DEVICE Routine 03/02/2024 7 :39 AM PATIENT SERVICES REPRESENTATIVE EGFR Routine 03/02/2024 2:55 AM PATIENT SERVICES REPRESENTATIVE CBC WITHOUT DIFFERENTIAL Routine 03/02/2024 2:55 AM PATIENT SERVICES REPRESENTATIVE RENAL FUNCTION PANEL Routine 03/02/2024 2:55 AM PATIENT SERVICES REPRESENTATIVE POCT GLUCOSE DEVICE Routine 03/01/2024 8 :20 PM PATIENT SERVICES REPRESENTATIVE POCT GLUCOSE DEVICE Routine 03/01/2024 6 :36 PM PATIENT SERVICES REPRESENTATIVE POCT GLUCOSE DEVICE Routine 03/01/2024 1 2:44 PM PATIENT SERVICES REPRESENTATIVE HEPATITIS PANEL, ACUTE Routine 8:26 AM PATIENT SERVICES REPRESENTATIVE POCT GLUCOSE DEVICE Routine 03/01/2024 7:33 AM PATIENT SERVICES REPRESENTATIVE EGFR Routine 03/01/2024 2:38 AM PATIENT SERVICES REPRESENTATIVE RENAL FUNCTION PANEL Routine 03/01/2024 2:38 AM PATIENT SERVICES REPRESENTATIVE POCT GLUCOSE DEVICE Routine 02/29/2024 1 0:03 PM PATIENT SERVICES REPRESENTATIVE EGFR STAT 02/29/2024 9:35 PM PATIENT SERVICES REPRESENTATIVE DIFFERENTIAL AUTO STAT 02/29/2024 9:3 5 PM PATIENT SERVICES REPRESENTATIVE MAGNESIUM STAT 02/29/2024 9:35 PM PATIENT SERVICES REPRESENTATIVE COMPREHENSIVE METABOLIC PANEL STAT 02/29/2024 9:35 PM PATIENT SERVICES REPRESENTATIVE CBC WITH AUTO DIFFERENTIAL STAT 02/29/2024 9:35 PM PATIENT SERVICES REPRESENTATIVE CARDIOLOGY DOCUMENT SCAN Routine 02/29/2024 10:54 AM PATIENT SERVICES REPRESENTATIVE CARDIOLOGY DOCUMENT SCAN Routine 02/26/2024 3:00 PM PATIENT SERVICES REPRESENTATIVE CARDIOLOGY DOCUMENT SCAN Routine 02/25/2024 2:53 PM PATIENT SERVICES REPRESENTATIVE CARDIOLOGY DOCUMENT SCAN Routine 02/24/2024 3:09 PM PATIENT SERVICES REPRESENTATIVE CARDIOLOGY DOCUMENT SCAN Routine 02/23/2024 2:52 PM PATIENT SERVICES REPRESENTATIVE CARDIOLOGY DOCUMENT SCAN 02/23/2024 ECG 12-LEAD Routine 02/22/2024 2:58 PM PATIENT SERVICES REPRESENTATIVE PAF (paroxysmal atrial fibrillation) (CMS/HCC) (HCC) CARDIOLOGY DOCUMENT SCAN Routine 02/22/2024 2:48 PM PATIENT SERVICES REPRESENTATIVE HEMOGLOBIN A1C Routine 04/12/2019 4:10 AM PATIENT SERVICES REPRESENTATIVE LIPID PANEL STAT 04/12/2019 3:41 AM PATIENT SERVICES REPRESENTATIVE from Last 3 Months or Most Recently Relevant to Health Maintenance Results * POCT glucose (03/02/2024 12:07 PM PATIENT SERVICES REPRESENTATIVE) Glucose, POC 160 70 - 199 mg/dL Blood 03/02/2024 12:0 7 PM PATIENT SERVICES REPRESENTATIVE 03/02/2024 12:07 PM PATIENT SERVICES REPRESENTATIVE Chava Weathers DO LAB POCT ORDERABLES - DEV ICE Final Result Performing Organization Address [facility] de Phone Number [facility] [address] [place] [address] * POCT glucose (03/02/2024 7:39 AM PATIENT SERVICES REPRESENTATIVE) Glucose, POC 136 70 - 199 mg/dL Blood 03/02/2024 7:39 AM PATIENT SERVICES REPRESENTATIVE 03/02/2024 7:39 AM PATIENT SERVICES REPRESENTATIVE Chava Weathers DO LAB POCT ORDERABLES - DEV ICE Final Result Performing Organization Address [facility] de Phone Number [facility] [address] [place] [address] * (ABNORMAL) eGFR (03/02/2024 2:55 AM PATIENT SERVICES REPRESENTATIVE) eGFR 19(L) >=60 mL/min/1. 73 m2 Comment: Interpretive Data Reference Interval Normal >/= 90 mL/min/1.73m2 Mildly decreased* 60 - 89 mL/min/1.73m2 Mildly to moderately decreased 45 - 59 mL/min/1.73m2 Moderately to severely decreased 30 - 44 mL/min/1.73m2 Severely decreased 15 - 29 mL/min/1.73m2 Kidney Failure < 15 mL/min/1.73m2 *Relative to young adult level Estimated glomerular filtration rate is determined by the 2020 CKD-EPI equation recommended by the National Kidney Foundation (A Unifying Approach to GFR Estimation: Recommendations of the NKF-ASK Task Force on Reassessing the Inclusion of Race in Diagnosing Kidney Disease, JASN 2020). The CKD-EPI equation should not be used for patients with unstable renal function and has not been validated in children and those over 70. Current interpretive data was last reviewed 2020. Blood 03/02/2024 2:55 AM PATIENT SERVICES REPRESENTATIVE 03/02/2024 3:39 AM PATIENT SERVICES REPRESENTATIVE us Jenaro Le MD LAB BLOOD ORDERABLES Final Res ult [facility] [address] Department [place] [address] * (ABNORMAL) CBC without differential (03/02/2024 2:55 AM PATIENT SERVICES REPRESENTATIVE) WBC 5.8 3.8 - 9.9 K/cumm Hgb 9.1(L) 13.0 - 17.5 g/dL [facility] Hct 26.6(L) 38.9 - 50.3 % [facility] Plt 201 150 - 400 K/cumm [facility] MPV 8.9(L) 9.1 - 12.3 fL [facility] RBC 2.70(L) 4.30 - 5.80 M/cumm [facility] MCV 98.5(H) 81.3 - 96.4 fL [facility] MCH 33.7(H) 27.1 - 33.3 pg [facility] MCHC 34.2 32.3 - 35.7 g/dL [facility] RDW CV 13.0 11.1 - 14.9 % [facility] RDW SD 46.3 35.7 - 48.1 fL [facility] NRBC abs 0.00 0.00 - 0.01 K/cumm [facility] Blood 03/02/2024 2:55 AM PATIENT SERVICES REPRESENTATIVE 03/02/2024 3:40 AM PATIENT SERVICES REPRESENTATIVE Chava Weathers DO LAB BLOOD ORDERABLES Kristen l Result [facility] [address] Department [place] [address] * (ABNORMAL) Renal function panel (03/02/2024 2:55 AM PATIENT SERVICES REPRESENTATIVE) Pathologist [facility] Sodium 135 135 - 145 mmol/L Potassium, pl 3.4 3.3 - 4.9 mmol/L [facility] Chloride 96(L) 97 - 110 mmol/L [facility] CO2 28 22 - 32 mmol/L [facility] Anion gap 11 2 - 15 mmol/L [facility] BUN 24 6 - 25 mg/dL [facility] Creatinine 3.14(H) 0.80 - 1.30 mg/dL [facility] Glucose 120 70 - 199 mg/dL [facility] Comment: Interpretive Data Fasting glucose >/= 126 mg/dl is diagnostic for diabetes. Fasting is defined as no caloric intake for at least 8 hours. Fasting glucose between 100 mg/dl to 125 mg/dl is diagnostic of prediabetes. In a patient with classic symptoms of hyperglycemia or hyperglycemic crisis, a random glucose >/= 200 mg/dl is diagnostic for diabetes. In the absence of unequivocal hyperglycemia, results should be confirmed by repeat testing. The classification and Diagnosis of Diabetes Diabetes Care 202; 46: S19-S40. Current interpretive data was last revised 2022. Calcium 8.3(L) 8.5 - 10.3 mg/dL [facility] Phosphorus, pl 3.3 2.3 - 4.5 mg/dL [facility] Albumin 3.2(L) 3.5 - 5.0 g/dL [facility] Blood 03/02/2024 2:55 AM PATIENT SERVICES REPRESENTATIVE 03/02/2024 3:39 AM PATIENT SERVICES REPRESENTATIVE Jenaro Le MD LAB BLOOD ORDERABLES Final Res ult Performing Organization Address [facility] de Phone Number [facility] [address] [facility] [place] [address] * POCT glucose (03/01/2024 8:20 PM PATIENT SERVICES REPRESENTATIVE) Glucose, POC 135 70 - 199 mg/dL Blood 03/01/2024 8:20 PM PATIENT SERVICES REPRESENTATIVE 03/01/2024 8:20 PM PATIENT SERVICES REPRESENTATIVE Chava Weathers LAB POCT ORDERABLES - DEV ICE Final Result Performing Organization Address [facility] de Phone Number [facility] [address] [facility] [place] [address] * POCT glucose (03/01/2024 6:36 PM PATIENT SERVICES REPRESENTATIVE) Glucose, POC 152 70 - 199 mg/dL Blood 03/01/2024 6:36 PM PATIENT SERVICES REPRESENTATIVE 03/01/2024 6:36 PM PATIENT SERVICES REPRESENTATIVE Chava Weathers DO LAB POCT ORDERABLES - DEV ICE Final Result Performing Organization Address [facility] de Phone Number [facility] [address] [facility] [place] [place] [address] * POCT glucose (03/01/2024 12:44 PM PATIENT SERVICES REPRESENTATIVE) Glucose, POC 90 70 - 199 mg/dL Blood 03/01/2024 12:4 4 PM PATIENT SERVICES REPRESENTATIVE 03/01/2024 12:44 PM PATIENT SERVICES REPRESENTATIVE Chava Weathers LAB POCT ORDERABLES - DEV ICE Final Result Performing Organization Address [facility] de Phone Number [facility] [address] [facility] [place] [place] [address] * Hepatitis panel, acute Blood (03/01/2024 8:26 AM PATIENT SERVICES REPRESENTATIVE) Hep A IgM Nonreactive Nonreactive Comment: Interpretive Data: If Hep A IgM Ab is reported as Equivocal, a new sample should be drawn in two weeks for testing. Current interpretive data was last revised on 19. Hep B core IgM Nonreactive Nonreactive [facility] Comment: Interpretive Data If HepB Core IgM Ab is reported as Equivocal, a new sample should be drawn in two weeks for testing. Current interpretive data was last revised on 19. Hep C Ab Nonreactive Nonreactive [facility] Comment: Interpretive Data Nonreactive: Antibodies to HCV not detected. Does NOT exclude the possibility of recent exposure to HCV. Equivocal: Equivocal for HCV antibodies. Supplemental molecular testing will be automatically performed to determine infection status in accordance with current CDC screening recommendations. Reactive: Positive for HCV antibodies. This may represent current or past HCV infection. Supplemental molecular testing will be automatically performed to determine current infection status in accordance with current CDC screening recommendations. Interpretive data was last revised on 2019. HepBsAg Nonreactive Nonreactive [facility] Blood 03/01/2024 8:26 AM PATIENT SERVICES REPRESENTATIVE 03/01/2024 8:31 AM PATIENT SERVICES REPRESENTATIVE Jenaro Le MD LAB MICROBIOLOGY - GENERAL ORD ERABLES Final Result [facility] [address] [place] [address] * POCT glucose (03/01/2024 7:33 AM PATIENT SERVICES REPRESENTATIVE) Glucose, POC 124 70 - 199 mg/dL Blood 03/01/2024 7:33 AM PATIENT SERVICES REPRESENTATIVE 03/01/2024 7:33 AM PATIENT SERVICES REPRESENTATIVE Chava Weathers DO LAB POCT ORDERABLES - DEV ICE Final Result [facility] [address] Department [place] [address] * (ABNORMAL) eGFR (03/01/2024 2:38 AM PATIENT SERVICES REPRESENTATIVE) eGFR 15(L) >=60 mL/min/1. 73 m2 Comment: Interpretive Data Reference Interval Normal >/= 90 mL/min/1.73m2 Mildly decreased* 60 - 89 mL/min/1.73m2 Mildly to moderately decreased 45 - 59 mL/min/1.73m2 Moderately to severely decreased 30 - 44 mL/min/1.73m2 Severely decreased 15 - 29 mL/min/1.73m2 Kidney Failure < 15 mL/min/1.73m2 *Relative to young adult level Estimated glomerular filtration rate is determined by the 2020 CKD-EPI equation recommended by the National Kidney Foundation (A Unifying Approach to GFR Estimation: Recommendations of the NKF-ASK Task Force on Reassessing the Inclusion of Race in Diagnosing Kidney Disease, JASN 2020). The CKD-EPI equation should not be used for patients with unstable renal function and has not been validated in children and those over 70. Current interpretive data was last reviewed 2020. Blood 03/01/2024 2:38 AM PATIENT SERVICES REPRESENTATIVE 03/01/2024 3:03 AM PATIENT SERVICES REPRESENTATIVE us Jenaro Le MD LAB BLOOD ORDERABLES Final Res ult [facility] [address] Department [place] [address] * (ABNORMAL) Renal function panel (03/01/2024 2:38 AM PATIENT SERVICES REPRESENTATIVE) Sodium 137 135 - 145 mmol/L Potassium, pl 3.5 3.3 - 4.9 mmol/L [facility] Chloride 100 97 - 110 mmol/L [facility] CO2 27 22 - 32 mmol/L [facility] Anion gap 10 2 - 15 mmol/L [facility] BUN 39(H) 6 - 25 mg/dL [facility] Creatinine 3.83(H) 0.80 - 1.30 mg/dL [facility] Glucose 138 70 - 199 mg/dL [facility] Comment: Interpretive Data Fasting glucose >/= 126 mg/dl is diagnostic for diabetes. Fasting is defined as no caloric intake for at least 8 hours. Fasting glucose between 100 mg/dl to 125 mg/dl is diagnostic of prediabetes. In a patient with classic symptoms of hyperglycemia or hyperglycemic crisis, a random glucose >/= 200 mg/dl is diagnostic for diabetes. In the absence of unequivocal hyperglycemia, results should be confirmed by repeat testing. The classification and Diagnosis of Diabetes Diabetes Care 2021; 46: S19-S40. Current interpretive data was last revised 2022. Calcium 8.3(L) 8.5 - 10.3 mg/dL [facility] Phosphorus, pl 3.7 2.3 - 4.5 mg/dL [facility] Albumin 3.2(L) 3.5 - 5.0 g/dL [facility] Blood 03/01/2024 2:38 AM PATIENT SERVICES REPRESENTATIVE 03/01/2024 3:03 AM PATIENT SERVICES REPRESENTATIVE Jenaro Le MD LAB BLOOD ORDERABLES Final Res ult Performing Organization Address [facility] de Phone Number [facility] [address] [place] [address] * POCT glucose (02/29/2024 10:03 PM PATIENT SERVICES REPRESENTATIVE) Pathologist [facility] Glucose, POC 140 70 - 199 mg/dL Blood 02/29/2024 10:0 3 PM PATIENT SERVICES REPRESENTATIVE 02/29/2024 10:03 PM PATIENT SERVICES REPRESENTATIVE Chava Weathers DO LAB POCT ORDERABLES - DEV ICE Final Result Performing Organization Address [facility] de Phone Number [facility] [address] [place] [address] * (ABNORMAL) eGFR (02/29/2024 9:35 PM PATIENT SERVICES REPRESENTATIVE) Pathologist [facility] eGFR 15(L) >=60 mL/min/1. 73 m2 Comment: Interpretive Data Reference Interval Normal >/= 90 mL/min/1.73m2 Mildly decreased* 60 - 89 mL/min/1.73m2 Mildly to moderately decreased 45 - 59 mL/min/1.73m2 Moderately to severely decreased 30 - 44 mL/min/1.73m2 Severely decreased 15 - 29 mL/min/1.73m2 Kidney Failure < 15 mL/min/1.73m2 *Relative to young adult level Estimated glomerular filtration rate is determined by the 2020 CKD-EPI equation recommended by the National Kidney Foundation (A Unifying Approach to GFR Estimation: Recommendations of the NKF-ASK Task Force on Reassessing the Inclusion of Race in Diagnosing Kidney Disease, JASN 202). The CKD-EPI equation should not be used for patients with unstable renal function and has not been validated in children and those over 70. Current interpretive data was last reviewed 2020. Blood 02/29/2024 9:35 PM PATIENT SERVICES REPRESENTATIVE 02/29/2024 10:02 PM PATIENT SERVICES REPRESENTATIVE us Radha Sheppard NP LAB BLOOD ORDERABLES Final R esult [facility] [address] Department of [place] [address] * (ABNORMAL) Differential, auto (02/29/2024 9:35 PM PATIENT SERVICES REPRESENTATIVE) Neutrophil abs 3.8 1.5 - 6.5 K/cumm Imm gran abs 0.1 0.0 - 0.1 K/cumm [facility] Lymphocyte abs 0.4(L) 0.8 - 3.3 K/cumm [facility] Monocyte abs 0.7 0.2 - 0.8 K/cumm [facility] Eosinophil abs 0.1 0.0 - 0.5 K/cumm [facility] Basophil abs 0.0 0.0 - 0.1 K/cumm [facility] Neutrophil pct 74.9 % [facility] Comment: Interpretive Data Percent cell count reference ranges are not reported, since discordance with absolute values may lead to misinterpretation of CBC data. Current Interpretive Data was last revised on 2017. Imm gran pct 1.0 % [facility] Comment: Interpretive Data Percent cell count reference ranges are not reported, since discordance with absolute values may lead to misinterpretation of CBC data. Current Interpretive Data was last revised on 2017. Lymphocyte pct 7.1 % [facility] Comment: Interpretive Data Percent cell count reference ranges are not reported, since discordance with absolute values may lead to misinterpretation of CBC data. Current Interpretive Data was last revised on 2017. Monocyte pct 13.8 % [facility] Comment: Interpretive Data Percent cell count reference ranges are not reported, since discordance with absolute values may lead to misinterpretation of CBC data. Current Interpretive Data was last revised on 2017. Eosinophil pct 2.4 % [facility] Comment: Interpretive Data Percent cell count reference ranges are not reported, since discordance with absolute values may lead to misinterpretation of CBC data. Current Interpretive Data was last revised on 2017. Basophil pct 0.8 % [facility] Comment: Interpretive Data Percent cell count reference ranges are not reported, since discordance with absolute values may lead to misinterpretation of CBC data. Current Interpretive Data was last revised on 2017. Blood 02/29/2024 9:35 PM PATIENT SERVICES REPRESENTATIVE 02/29/2024 10:01 PM PATIENT SERVICES REPRESENTATIVE us Radha Sheppard NP LAB BLOOD ORDERABLES Final R esult [facility] [address] Department [place] [address] * (ABNORMAL) CBC with auto differential (02/29/2024 9:35 PM PATIENT SERVICES REPRESENTATIVE) WBC 5.1 3.8 - 9.9 K/cumm Hgb 9.1(L) 13.0 - 17.5 g/dL [facility] Hct 27.4(L) 38.9 - 50.3 % [facility] Plt 197 150 - 400 K/cumm [facility] MPV 8.8(L) 9.1 - 12.3 fL [facility] RBC 2.74(L) 4.30 - 5.80 M/cumm [facility] MCV 100.0(H) 81.3 - 96.4 fL [facility] MCH 33.2 27.1 - 33.3 pg [facility] MCHC 33.2 32.3 - 35.7 g/dL [facility] RDW CV 13.1 11.1 - 14.9 % [facility] RDW SD 47.7 35.7 - 48.1 fL [facility] NRBC abs 0.00 0.00 - 0.01 K/cumm [facility] Blood 02/29/2024 9:35 PM PATIENT SERVICES REPRESENTATIVE 02/29/2024 10:01 PM PATIENT SERVICES REPRESENTATIVE Radha Sheppard LAB BLOOD ORDERABLES Final [facility] Performing Organization Address [facility] [employer] de Phone Number [facility] [id number] [facility] [place] [address] * Magnesium (02/29/2024 9:35 PM PATIENT SERVICES REPRESENTATIVE) Pathologist [facility] Magnesium 1.8 1.4 - 2.5 mg/dL Blood 02/29/2024 9:35 PM PATIENT SERVICES REPRESENTATIVE 02/29/2024 10:02 PM PATIENT SERVICES REPRESENTATIVE Radha Sheppard LAB BLOOD ORDERABLES Final R [facility] Performing Organization Address [facility] de Phone Number [facility] [id number] [facility] [place] [address] * (ABNORMAL) Comprehensive metabolic panel (02/29/2024 9:35 PM PATIENT SERVICES REPRESENTATIVE) Sodium 136 135 - 145 mmol/L Potassium, pl 3.4 3.3 - 4.9 mmol/L [facility] Chloride 98 97 - 110 mmol/L [facility] CO2 26 22 - 32 mmol/L [facility] Anion gap 12 2 - 15 mmol/L [facility] BUN 38(H) 6 - 25 mg/dL [facility] Creatinine 3.81(H) 0.80 - 1.30 mg/dL [facility] Glucose 131 70 - 199 mg/dL [facility] Comment: Interpretive Data Fasting glucose >/= 126 mg/dl is diagnostic for diabetes. Fasting is defined as no caloric intake for at least 8 hours. Fasting glucose between 100 mg/dl to 125 mg/dl is diagnostic of prediabetes. In a patient with classic symptoms of hyperglycemia or hyperglycemic crisis, a random glucose >/= 200 mg/dl is diagnostic for diabetes. In the absence of unequivocal hyperglycemia, results should be confirmed by repeat testing. The classification and Diagnosis of Diabetes Diabetes Care 2021; 46: S19-S40. Current interpretive data was last revised 2022. Calcium 8.5 8.5 - 10.3 mg/dL [facility] Bilirubin, total 0.4 0.1 - 1.2 mg/dL [facility] Protein, pl 6.3(L) 6.5 - 8.5 g/dL [facility] Albumin 3.3(L) 3.5 - 5.0 g/dL [facility] Alk phos 71 40 - 130 Units/L [facility] ALT 14 7 - 55 Units/L [facility] AST 27 10 - 50 Units/L [facility] Blood 02/29/2024 9:35 PM PATIENT SERVICES REPRESENTATIVE 02/29/2024 10:02 PM PATIENT SERVICES REPRESENTATIVE us Radha Sheppard NP LAB BLOOD ORDERABLES Final R esult [facility] [address] Department [place] [address] * Cardiology Document Scan (02/29/2024 10:54 AM PATIENT SERVICES REPRESENTATIVE) Anatomical Region Laterality Modality Other us Catherine Flores MD [facility] CARDIAC SERVICES PROCEDU RES Final Result * Cardiology Document Scan (02/26/2024 3:00 PM PATIENT SERVICES REPRESENTATIVE) Anatomical Region Laterality Modality Other us Gerry Garcia MD CV CARDIAC SERVICES PROCEDU RES Final Result * Cardiology Document Scan (02/25/2024 2:53 PM PATIENT SERVICES REPRESENTATIVE) Anatomical Region Laterality Modality Other Gerry Garcia MD CV CARDIAC SERVICES PROCEDU RES Final Result * Cardiology Document Scan (02/24/2024 3:09 PM PATIENT SERVICES REPRESENTATIVE) Anatomical Region Laterality Modality Other us Pj Abreu MD CV CARDIAC SERVICES PRO CEDURES Final Result * Cardiology Document Scan (02/23/2024 2:52 PM PATIENT SERVICES REPRESENTATIVE) Anatomical Region Laterality Modality Other Joe Arce MD CV CARDIAC SERVICES PROCEDURES F inal Result * Cardiology Document Scan (02/23/2024) Anatomical Region Laterality Modality Other Pj Abreu MD CV CARDIAC SERVICES PRO CEDURES Final Result * ECG 12 lead (02/22/2024 2:58 PM PATIENT SERVICES REPRESENTATIVE) Wilfred Charles MD ECG ORDERABLES Final Res ult * Cardiology Document Scan (02/22/2024 2:48 PM PATIENT SERVICES REPRESENTATIVE) Anatomical Region Laterality Modality Other Pj Abreu MD CV CARDIAC SERVICES PRO CEDURES Final Result * (ABNORMAL) Hemoglobin A1c (04/12/2019 4:10 AM PATIENT SERVICES REPRESENTATIVE) Pathologist [facility] Hgb A1C 7.1(H) 4.0 - 5.6 % [facility] Estimated Average Glucose 157 mg/dL [facility] Comment: The ADA recommends reporting an estimated Average Glucose (eAG) with all Hemoglobin A1c results using the equation derived from a study of 507 normal and diabetic adults. Minority populations were underrepresented and children were not included. (Diabetes Care 31:9473-1812, 2008). The eAG is not equivalent to a fasting glucose. Blood specimen (specimen) 04/12/2019 4:10 AM PATIENT SERVICES REPRESENTATIVE 04/12/2019 6:03 AM PATIENT SERVICES REPRESENTATIVE us David VOSS LAB BLOOD ORDERABLES Final Result [facility] Department [place] [address] * (ABNORMAL) Lipid panel (04/12/2019 3:41 AM PATIENT SERVICES REPRESENTATIVE) Pathologist [facility] Cholesterol 78 30 - 199 mg/dL [facility] Comment: Interpretive Data Ages < or = 19 years Acceptable: <170 mg/dL Borderline high: 170-199 mg/dL High: >or= 200 mg/dL Ages > or = 20 years Desirable: <200 mg/dL Borderline high: 200-239 mg/dL High: >or= 240 mg/dL Literature References: 1. Expert Panel on Integrated Guidelines for Cardiovascular Health and Risk Reduction in Children and Adolescents. Pediatrics 2011;128:S213 2. NCEP Expert Panel. Circulation 2004;110:227 Current Interpretive Data was last revised on 2017. Triglycerides 61 <=149 mg/dL [facility] Comment: Interpretive Data Ages < or = 9 years Acceptable: <75 mg/dL Borderline high: 75-99 mg/dL High: >or= 100 mg/dL Ages 10 to 20 years Acceptable: <90 mg/dL Borderline high: 90-129 mg/dL High: >or= 130 mg/dL Ages > or = 20 years Desirable: <150 mg/dL Borderline high: 150-199 mg/dL High: 200-499 mg/dL Very high: >or= 499 mg/dL Literature References: 1. Expert Panel on Integrated Guidelines for Cardiovascular Health and Risk Reduction in Children and Adolescents. Pediatrics 2011;128:S213 2. NCEP Expert Panel. Circulation 2004;110:227 Current Interpretive Data was last revised on 2017. HDL 29(L) >=40 mg/dL [facility] Comment: Interpretive Data Ages < or = 19 years Acceptable: >45 mg/dL Borderline low: 40-45 mg/dL Low: <40 mg/dL Ages > or = 20 years Desirable: >or= 60 mg/dL Low: <40 mg/dL Literature References: 1. Expert Panel on Integrated Guidelines for Cardiovascular Health and Risk Reduction in Children and Adolescents. Pediatrics 2011;128:S213 2. NCEP Expert Panel. Circulation 2004;110:227 Current Interpretive Data was last revised on 2017. LDL, calculated 37 <=129 mg/dL [facility] Comment: Interpretive Data Ages < or = 19 years Acceptable: <110 mg/dL Borderline high: 110-129 mg/dL High: >or= 130 mg/dL Ages > or = 20 years Optimal: <100 mg/dL Near optimal: 100-129 mg/dL Borderline high: 130-159 mg/dL High: >160 mg/dL Literature References: 1. Expert Panel on Integrated Guidelines for Cardiovascular Health and Risk Reduction in Children and Adolescents. Pediatrics 2011;128:S213 2. NCEP Expert Panel. Circulation 2004;110:227 Current Interpretive Data was last revised on 2017. Non-HDL Cholesterol 49 mg/dL [facility] Comment: Interpretive Data Ages < or = 19 years Acceptable: <120 mg/dL Borderline high: 120-144 mg/dL High: >145 mg/dL Ages > or = 20 years When triglycerides are >200 mg/dL, Non-HDL cholesterol is a secondary target of therapy with treatment goals that are 30 mg/dL greater than the LDL cholesterol target. Literature References: 1. Expert Panel on Integrated Guidelines for Cardiovascular Health and Risk Reduction in Children and Adolescents. Pediatrics 2011;128:S213 2. NCEP Expert Panel. Circulation 2004;110:227 Current Interpretive Data was last revised on 2017. Chol/HDL ratio 3 [facility] Blood specimen (specimen) 04/12/2019 3:41 AM PATIENT SERVICES REPRESENTATIVE 04/12/2019 5:47 AM PATIENT SERVICES REPRESENTATIVE us Yvonne Matthew MD LAB BLOOD ORDERABLES F inal Result [facility] [address] [facility] Department [place] [address] from Last 3 Months or Most Recently Relevant to Health Maintenance Insurance [facility] MEDICARE [employer] MEDICARE [facility] Address: [address] [place] [address] [address] [id number] MEDICARE [employer] [facility] MEDICARE Address: [address] [address] [place] [address] MEDICARE [employer] [facility] MEDICARE Address: [address] [address] [place] [address] Advance Directives For more information, please contact: [phone] * Full Code (Latest Code Status on File) Date Activated Date Inactivated Comments 02/29/2024 8:34 PM 03/02/2024 7:26 PM * Full Code Date Activated Date Inactivated Comments 04/12/2019 3:29 AM 04/20/2019 6:41 PM Care Teams Conventional Machinist Relationship Specialty Start Date End Date Santi Roy MD [address] [facility] [address] [place] [address] PCP - General Family Medicine 02/23/19 Itz Boyd MD [address] [facility] [address] [place] [address] Consulting Physician Nephrology 07/26/23 Joe Arce MD [address] [facility] [address] [facility] [address] [place] [address] Consulting Physician Cardiology 03/02/24
--- OUTSIDE RECORDS SUMMARY | 2024-04-02 03:33 | XMS_ITS | Encounter Summary ---
Author Organization [facility] Address [address] [place] [address] Care Team Providers Care Gym Supervisor Name Role Phone Santi Roy MD Primary Care Provider [phone] Encounter Details Date Type Department Care Team (Late st Contact Info) Description 04/23/2021 Telephone [facility] [address] [place] [address] Santi Angelo MD [address] OF [facility] [place] [address] Social History Tobacco Use Types Packs/Day Years [...] on filedocumented in this encounter Care Teams Gym Supervisor Relationship Specialty Start Date End Date Santi Roy MD [address] [place] [address] PCP - General 12/18/19 documented as of this encounter
--- OUTSIDE RECORDS SUMMARY | 2024-04-02 03:33 | XMS_ITS | Encounter Summary ---
Author Organization [facility] Address [address] [place] [address] Care Team Providers Care Cot Assembler Name Role Phone Santi Roy MD Primary Care Provider [phone] Encounter Details Date Type Department Care Team (Late st Contact Info) Description 10/28/2020 Telephone [facility] [address] [place] [address] Santi Angelo MD [address] OF [facility] [place] [address] Social History Tobacco Use Types Packs/Day Years [...] on filedocumented in this encounter Care Teams Cot Assembler Relationship Specialty Start Date End Date Santi Roy MD [address] [place] [address] PCP - General 12/18/19 documented as of this encounter
--- OUTSIDE RECORDS SUMMARY | 2024-04-02 03:33 | XMS_ITS | Encounter Summary ---
Author Organization [facility] Address [address] [place] [address] Care Team Providers Care Weight Training Instructor Name Role Phone Santi Roy MD Primary Care Provider [phone] Encounter Details Date Type Department Care Team (Late st Contact Info) Description 09/30/2020 Telephone [facility] [address] [place] [address] Santi Angelo MD [address] OF [facility] [place] [address] Social History Tobacco Use Types Packs/Day Years [...] on filedocumented in this encounter Care Teams Weight Training Instructor Relationship Specialty Start Date End Date Santi Roy MD [address] [place] [address] PCP - General 12/18/19 documented as of this encounter
--- OUTSIDE RECORDS SUMMARY | 2024-04-02 03:33 | XMS_ITS | Clinical Summary ---
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 Name Role Phone Santi Roy MD Primary Care Provider Itz Boyd MD Unavailable [phone] Joe Arce MD Unavailable Allergies No known active allergies Medications cloNIDine [...] Atrial fibrillation with rap id ventricular response ([facility]) 02/29/2024 ESRD (end stage renal disease) ([facility]) 024 ESRD (end stage renal disease) on dialysis 07/27 Fluid retention 09/16/2020 End stage renal disease ([facility]) 01/16/2020 Assessment & Plan (07/29/2023 11:34 AM [...] unsure he will 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 prior to his routine appointment already scheduled [...] Pulmonary hypertension 05/30/2019 PAF (paroxysmal atrial fibrillation) ([facility]) 0 04/27/2019 Pneumonia of left lower lobe due to Streptococcus pneumoniae ([facility]) 04/20/2019 Assessment & Plan (04/20/2019 12:12 PM [...] (04/13/2019): Added automatically from request for surgery [id number] Gastrointestinal hemorrhage associated with casandra ritis 04/11/2019 Overview (04/15/2019): Added automatically from request for surgery [id number] Left carotid bruit 02/23/2019 Bilateral lower extremity edema 02/23/2019 Hyperlipidemia associated with type 2 diabetes m ellitus 02/23/2019 SALOME on CPAP 02/23/2019 Hypertension associated with stage 3 chronic kidney disease due to type 2 diabetes mellitus 02/23/2019 Atypical chest pain 02/23/2019 Type 2 diabetes mellitus with hyperglycemia ([facility]) 02/23/2019 Hyperlipidemia 02/23/2019 Assessment & Plan (07/29/2023 11:35 AM CDT): Impression: Chronic and stable. Plan: Continue atorvastatin. Hypertension 02/23/2019 Assessment & Plan (07/29/2023 11:35 AM CDT): Impression: Chronic stable. Plan: Continue amlodipine, clonidine, hydralazine, metoprolol Osteoarthritis of shoulder 04/09/2011 Arthralgia of shoulder 01/11/2011 Encounters Date Type Department Care Team Description 03/08/2024 2:00 PM PUBLIC OPINION SURVEY TAKER Office Visit [facility] Medical [facility] Cardiology [address] [place] [address] [phone] Maira Sifuentes NP Atrial fibrillation with rapid ventricular response (CMS/HCC) (HCC) (Primary Dx); Thrombus of left atrial appendage; Hospital discharge follow-up 03/08/2024 Telephone [facility] Cardiology [address] [place] [address] [place] [address] [phone] Maira Sifuentes NP 03/06/2024 Orders Only [facility] Cardiology [address] [place] [address] [place] [address] [phone] Catherine Flores MD 03/05/2024 [facility] Post Discharge Follow up phone call [address] [address] Jana Sebastian RN 03/01/2024 Orders Only [facility] Cardiology [address] [place] [address] [place] [address] [phone] Pj Abreu MD 02/29/2024 7:52 PM PUBLIC OPINION SURVEY TAKER - 03/02/2024 3:21 PM PUBLIC OPINION SURVEY TAKER Hospital Encounter [address] [address] Chava Weathers DO Atrial fibrillation with rapid ventricular response (CMS/HCC) (HCC) (Primary Dx) Discharge Disposition: Discharge to home or self care 02/29/2024 Orders Only [facility] Cardiology [address] [place] [address] [place] [address] [phone] Pj Abreu MD 02/23/2024 Orders Only [facility] Health Information Management [address] [place] [phone] Pj Abreu MD 02/21/2024 11:15 AM PUBLIC OPINION SURVEY TAKER Procedure visit [facility] Cardiology [address] [place] [address] [place] [address] [phone] PAF (paroxysmal atrial fibrillation) (CMS/HCC) (HCC) 02/20/2024 Telephone [facility] Cardiology [address] [place] [address] [place] [address] [phone] Wilfred Charles MD from Last 3 Months Surgical History Surgery Date Site/Laterality Comments CATARACT EXTRACTION KNEE SURGERY 02/08/2004 - 02/06/2005 Bilateral TOTAL JOINT CHOLECYSTECTOMY CARDIOVERSION 02/08/2020 - 02/06/2021 SHOULDER ARTHROPLASTY 02/07/2010 - 02/06/2011 Right TOTAL PERITONEAL CATHETER INSERTION 11/03/20 insertion - Dr. Angelo (declot/repositioning/ lysis of adhesions 05/18/21 Dr. Angelo) (removed due to infection 06/03/23 Dr. Jose) TUNNELED VENOUS CATHETER PLACEMENT 08/04/2023 Right RIJ permacath - Dr. Harvinder Fernando Medical History Medical History Date Comments Hypertension Hyperlipidemia Glaucoma wears glasses Cataracts, bilateral Sleep apnea WEARS CPAP Gall stones Arthralgia of shoulder 01/11/2011 Osteoarthritis of shoulder 04/09/2011 Left carotid bruit 02/23/2019 Bilateral lower extremity edema 02/23/2019 Hyperlipidemia associated wi th type 2 diabetes mellitus ([facility]) 02/23/2019 SALOME on CPAP 02/23/2019 Hypertension associated with stage 3 chronic kidney disease due to type 2 diabetes mellitus ([facility]) 02/23/2019 Type 2 diabetes mellitus wit h hyperglycemia ([facility]) ([facility]) 02/23/2019 PAF (paroxysmal atrial fibri llation) ([facility]) ([facility]) 04/27/2019 CARDIOVERSION Pulmonary hypertension ([facility]) 05/30/2019 End stage renal disease ([facility]) ([facility]) 01/16/2020 WAS DOING PERITONEAL BUT CAT H REMOVED D/T INFECTION Iron deficiency anemia 01/16/2020 COPD (chronic obstructive pu lmonary disease) ([facility]) Lung disease Wheezing Obesity Family History Medical History Relation Name Comments COPD Brother 1 Heart disease Brother 1 Cancer Father Heart disease Mother Cancer Sister 1 Cancer Sister 2 Cancer Sister 3 Cancer Sister 4 Diabetes Sister 5 Relation Name Status Comments Brother 1 Alive Brother 2 Alive Father (Age 67) Mother (Age 85) Sister 1 (Age 79) Sister 2 (Age 72) Sister 3 (Age 65) Sister 4 (Age 46) Sister 5 Alive Social History Tobacco Use Types Packs/Day Years Used Date Smoking Tobacco: Former Cigarettes 0.1 50 0 02/23/1942 - 02/24/1992 Smokeless Tobacco: Former Tobacco Cessation:Counseling Given: Not Answered Alcohol Use Standard Drinks/Week Comments Not Currently 0 (1 standard drink = 0.6 oz pur e alcohol) [facility] Utilities Answer Date Recorded In the [...] often do you attend chur ch or evangelical services? Never 03/01/2024 Do you belong to any clubs o r organizations such as uatsdin groups, unions, fraternal or athletic groups, or [...] any time in the past 12 m [facility], were you homeless or living in a residential (including now)? No 03/01/2024 Personal Safety Answer Date Recorded Have you ever been in or are you currently in a harmful physical or emotional relationship or is someone making you feel afraid or unsafe? 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 Male 1:08 PM PUBLIC OPINION SURVEY TAKER Gender Identity Not on file Sexual Orientation Not on file Obstetrics History Last Filed Vital Signs Vital Sign Reading Time Taken Comments Blood Pressure 126/60 03/08/2024 1:55 PM PUBLIC OPINION SURVEY TAKER Pulse 100 03/08/2024 1:55 PM PUBLIC OPINION SURVEY TAKER Temperature 36.6 C (97.9 F) 03/02/2024 12:30 PM PUBLIC OPINION SURVEY TAKER Respiratory Rate 18 03/02/2024 12:30 PM PUBLIC OPINION SURVEY TAKER Oxygen Saturation 96% 03/08/2024 1:55 PM PUBLIC OPINION SURVEY TAKER Inhaled Oxygen Concentration - - Weight 109.3 kg (241 lb) 03/08/2024 1:55 PM PUBLIC OPINION SURVEY TAKER Height 177.8 cm (5' 10 ) 03/08/2024 1:55 PM PUBLIC OPINION SURVEY TAKER Body Mass Index 34.58 03/08/2024 1:55 PM PUBLIC OPINION SURVEY TAKER Plan of Treatment Health Maintenance Due Date Last Done Comments Albumin Creatinine Ratio, Urine 1940 Depression Screening 1940 Dilated Eye Exam 1940 Foot Exam 1940 DTaP/Tdap/Td Vaccine (1 - Tdap) 06/10/1951 Hepatitis B Screening 1958 Pneumococcal vaccine 65+ (1 of 2 - PCV) 06/10/1959 Zoster Vaccine (1 of 2) 1990 Well Visit 65+ 2005 Hemoglobin A1C 10/13/2019 04/12/2019 Lipid Panel 04/11/2020 04/12/2019 Influenza Vaccine (#1) 2023 9, 11/06/2017, 11/08/2016, Additional history exists Fall Risk Assessment 03/02/2025 03/02/2024, 12/06/19 20 eGFR 03/02/2025 03/02/2024, 02/08, 02/29/2024 Medical Devices Implanted Type Area Shaker Out Device Identifier Shelf Expiration Date Model / Serial / Lot Total Joint Bilateral: Knee Total Right: Shoulder [employer] Embosafe 15.5fr 24cm Basic 2 Lumen Kit Catheter [id number] - [id number] Implanted:Qty: 1 on 08/04/2023 by Harvinder Fernando MD at [facility] [employer] 06/06/2025 [id number] / / [id number] Procedures Procedure Name Priority Date/Time Associated Diagnosis Comments POCT GLUCOSE DEVICE Routine 03/02/2024 1 2:07 PM PUBLIC OPINION SURVEY TAKER POCT GLUCOSE DEVICE Routine 03/02/2024 7 :39 AM PUBLIC OPINION SURVEY TAKER EGFR Routine 03/02/2024 2:55 AM PUBLIC OPINION SURVEY TAKER CBC WITHOUT DIFFERENTIAL Routine 03/02/2024 2:55 AM PUBLIC OPINION SURVEY TAKER RENAL FUNCTION PANEL Routine 03/02/2024 2:55 AM PUBLIC OPINION SURVEY TAKER POCT GLUCOSE DEVICE Routine 03/01/2024 8 :20 PM PUBLIC OPINION SURVEY TAKER POCT GLUCOSE DEVICE Routine 03/01/2024 6 :36 PM PUBLIC OPINION SURVEY TAKER POCT GLUCOSE DEVICE Routine 03/01/2024 1 2:44 PM PUBLIC OPINION SURVEY TAKER HEPATITIS PANEL, ACUTE Routine 8:26 AM PUBLIC OPINION SURVEY TAKER POCT GLUCOSE DEVICE Routine 03/01/2024 7 :33 AM PUBLIC OPINION SURVEY TAKER EGFR Routine 03/01/2024 2:38 AM PUBLIC OPINION SURVEY TAKER RENAL FUNCTION PANEL Routine 03/01/2024 2:38 AM PUBLIC OPINION SURVEY TAKER POCT GLUCOSE DEVICE Routine 02/29/2024 1 0:03 PM PUBLIC OPINION SURVEY TAKER EGFR STAT 02/29/2024 9:35 PM PUBLIC OPINION SURVEY TAKER DIFFERENTIAL AUTO STAT 02/29/2024 9:3 5 PM PUBLIC OPINION SURVEY TAKER MAGNESIUM STAT 02/29/2024 9:35 PM PUBLIC OPINION SURVEY TAKER COMPREHENSIVE METABOLIC PANEL STAT 02/29/2024 9:35 PM PUBLIC OPINION SURVEY TAKER CBC WITH AUTO DIFFERENTIAL STAT 02/29/2024 9:35 PM PUBLIC OPINION SURVEY TAKER CARDIOLOGY DOCUMENT SCAN Routine 02/29/2024 10:54 AM PUBLIC OPINION SURVEY TAKER CARDIOLOGY DOCUMENT SCAN Routine 02/26/2024 3:00 PM PUBLIC OPINION SURVEY TAKER CARDIOLOGY DOCUMENT SCAN Routine 02/25/2024 2:53 PM PUBLIC OPINION SURVEY TAKER CARDIOLOGY DOCUMENT SCAN Routine 02/24/2024 3:09 PM PUBLIC OPINION SURVEY TAKER CARDIOLOGY DOCUMENT SCAN Routine 02/23/2024 2:52 PM PUBLIC OPINION SURVEY TAKER CARDIOLOGY DOCUMENT SCAN 02/23/2024 ECG 12-LEAD Routine 02/22/2024 2:58 PM PUBLIC OPINION SURVEY TAKER PAF (paroxysmal atrial fibrillation) (CMS/HCC) (HCC) CARDIOLOGY DOCUMENT SCAN Routine 02/22/2024 2:48 PM PUBLIC OPINION SURVEY TAKER HEMOGLOBIN A1C Routine 04/12/2019 4:10 AM PUBLIC OPINION SURVEY TAKER LIPID PANEL STAT 04/12/2019 3:41 AM PUBLIC OPINION SURVEY TAKER from Last 3 Months or Most Recently Relevant to Health Maintenance Results * POCT glucose (03/02/2024 12:07 PM PUBLIC OPINION SURVEY TAKER) Glucose, POC 160 70 - 199 mg/dL Blood 03/02/2024 12:0 7 PM PUBLIC OPINION SURVEY TAKER 03/02/2024 12:07 PM PUBLIC OPINION SURVEY TAKER Chava Weathers DO LAB POCT ORDERABLES - DEV ICE Final Result ADDI [address] [place] [address] * POCT glucose (03/02/2024 7:39 AM PUBLIC OPINION SURVEY TAKER) Glucose, POC 136 70 - 199 mg/dL Blood 03/02/2024 7:39 AM PUBLIC OPINION SURVEY TAKER 03/02/2024 7:39 AM PUBLIC OPINION SURVEY TAKER Chava Weathers DO LAB POCT ORDERABLES - DEV ICE Final Result Performing Organization Address [facility] Co de Phone Number ADDI GONZALEZ [address] [place] [address] * (ABNORMAL) eGFR (03/02/2024 2:55 AM PUBLIC OPINION SURVEY TAKER) Pathologist [facility] eGFR 19(L) >=60 mL/min/1. 73 m2 Comment: [...] last reviewed 2020. Blood 03/02/2024 2:55 AM PUBLIC OPINION SURVEY TAKER 03/02/2024 3:39 AM PUBLIC OPINION SURVEY TAKER Jenaro Le MD LAB BLOOD ORDERABLES Final Res ult Performing Organization Address City/[facility]/ZIP Co de Phone Number ADDI GONZALEZ [address] [place] [place], [place] [id number] * (ABNORMAL) CBC without differential (03/02/2024 2:55 AM PUBLIC OPINION SURVEY TAKER) Pathologist [facility] WBC 5.8 3.8 - 9.9 K/cumm Hgb 9.1(L) 13.0 - 17.5 g/dL [facility] Hct 26.6(L) 38.9 - 50.3 % [facility] Plt 201 150 - 400 K/cumm [facility] MPV 8.9(L) 9.1 - 12.3 fL [facility] RBC 2.70(L) 4.30 - 5.80 M/cumm [facility] MCV 98.5(H) 81.3 - 96.4 fL [facility] MCH 33.7(H) 27.1 - 33.3 pg [facility] MCHC 34.2 32.3 - 35.7 g/dL [facility] RDW CV 13.0 11.1 - 14.9 % [facility] RDW SD 46.3 35.7 - 48.1 fL [facility] NRBC abs 0.00 0.00 - 0.01 K/cumm [facility] Blood 03/02/2024 2:55 AM PUBLIC OPINION SURVEY TAKER 03/02/2024 3:40 AM PUBLIC OPINION SURVEY TAKER Chava Weathers DO LAB BLOOD ORDERABLES Kristen l Result [facility] [address] [place] [address] * (ABNORMAL) Renal function panel (03/02/2024 2:55 AM PUBLIC OPINION SURVEY TAKER) Pathologist [facility] Sodium 135 135 - 145 mmol/L Potassium, pl 3.4 3.3 - 4.9 mmol/L [facility] Chloride 96(L) 97 - 110 mmol/L [facility] CO2 28 22 - 32 mmol/L [facility] Anion gap 11 2 - 15 mmol/L [facility] BUN 24 6 - 25 mg/dL [facility] Creatinine 3.14(H) 0.80 - 1.30 mg/dL [facility] Glucose 120 70 - 199 mg/dL [facility] Comment: Interpretive Data Fasting glucose >/= 126 [...] CH Albumin 3.2(L) 3.5 - 5.0 g/dL [facility] Blood 03/02/2024 2:55 AM PUBLIC OPINION SURVEY TAKER 03/02/2024 3:39 AM PUBLIC OPINION SURVEY TAKER Jenaro Le MD LAB BLOOD ORDERABLES Final Res ult Performing Organization Address [facility] de Phone Number KALEBSOM GONZLAEZ [address] [facility] [place] [address] * POCT glucose (03/01/2024 8:20 PM PUBLIC OPINION SURVEY TAKER) Glucose, POC 135 70 - 199 mg/dL Blood 03/01/2024 8:20 PM PUBLIC OPINION SURVEY TAKER 03/01/2024 8:20 PM PUBLIC OPINION SURVEY TAKER Chava Weathers DO LAB POCT ORDERABLES - DEV ICE Final Result Performing Organization Address [facility] de Phone Number [facility] [address] [facility] [place] [address] * POCT glucose (03/01/2024 6:36 PM PUBLIC OPINION SURVEY TAKER) Glucose, POC 152 70 - 199 mg/dL Blood 03/01/2024 6:36 PM PUBLIC OPINION SURVEY TAKER 03/01/2024 6:36 PM PUBLIC OPINION SURVEY TAKER Chava Weathers DO LAB POCT ORDERABLES - DEV ICE Final Result Performing Organization Address [facility] de Phone Number KALEBSOM [address] [facility] [place] [address] * POCT glucose (03/01/2024 12:44 PM PUBLIC OPINION SURVEY TAKER) Glucose, POC 90 70 - 199 mg/dL Blood 03/01/2024 12:4 4 PM PUBLIC OPINION SURVEY TAKER 03/01/2024 12:44 PM PUBLIC OPINION SURVEY TAKER Chava Weathers DO LAB POCT ORDERABLES - DEV ICE Final Result Performing Organization Address [facility] Co de Phone Number [facility] [address] [facility] [place] [address] * Hepatitis panel, acute Blood (03/01/2024 8:26 AM PUBLIC OPINION SURVEY TAKER) Pathologist [facility] Hep A IgM Nonreactive Nonreactive Comment: Interpretive Data: If Hep A IgM Ab is reported as Equivocal, a new sample should be drawn in two weeks for testing. Current interpretive data was last revised on 19. Hep B core IgM Nonreactive Nonreactive [facility] Comment: Interpretive Data If HepB Core IgM Ab is reported as Equivocal, a new sample should be drawn in two weeks for testing. Current interpretive data was last revised on 19. Hep C Ab Nonreactive Nonreactive [facility] Comment: Interpretive Data Nonreactive: Antibodies to HCV [...] last revised on 2019. HepBsAg Nonreactive Nonreactive [facility] Blood 03/01/2024 8:26 AM PUBLIC OPINION SURVEY TAKER 03/01/2024 8:31 AM PUBLIC OPINION SURVEY TAKER Jenaro Le MD LAB MICROBIOLOGY - GENERAL ORD ERABLES Final Result Performing Organization Address City/[facility]/ZIP Co de Phone Number ADDI [address] [facility] [place] [address] * POCT glucose (03/01/2024 7:33 AM PUBLIC OPINION SURVEY TAKER) Glucose, POC 124 70 - 199 mg/dL Blood 03/01/2024 7:33 AM PUBLIC OPINION SURVEY TAKER 03/01/2024 7:33 AM PUBLIC OPINION SURVEY TAKER Chava Weathers DO LAB POCT ORDERABLES - DEV ICE Final Result Performing Organization Address [facility] Co de Phone Number ADDI GONZALEZ [address] [place] [address] * (ABNORMAL) eGFR (03/01/2024 2:38 AM PUBLIC OPINION SURVEY TAKER) eGFR 15(L) >=60 mL/min/1. 73 m2 Comment: [...] last reviewed 2020. Blood 03/01/2024 2:38 AM PUBLIC OPINION SURVEY TAKER 03/01/2024 3:03 AM PUBLIC OPINION SURVEY TAKER Jenaro Le MD LAB BLOOD ORDERABLES Final Res ult Performing Organization Address [facility]/[place] [address] [employer] [address] * (ABNORMAL) Renal function panel (03/01/2024 2:38 AM PUBLIC OPINION SURVEY TAKER) Sodium 137 135 - 145 mmol/L Potassium, pl 3.5 3.3 - 4.9 mmol/L [facility] Chloride 100 97 - 110 mmol/L [facility] CO2 27 22 - 32 mmol/L [facility] Anion gap 10 2 - 15 mmol/L [facility] BUN 39(H) 6 - 25 mg/dL [facility] Creatinine 3.83(H) 0.80 - 1.30 mg/dL [facility] Glucose 138 70 - 199 mg/dL [facility] [...] pl 3.7 2.3 - 4.5 mg/dL [facility] Albumin 3.2(L) 3.5 - 5.0 g/dL [facility] Blood 03/01/2024 2:38 AM PUBLIC OPINION SURVEY TAKER 03/01/2024 3:03 AM PUBLIC OPINION SURVEY TAKER Jenaro Le MD LAB BLOOD ORDERABLES Final Res ult ADDI [address] Department of Laboratories [place], [place] [id number] * POCT glucose (02/29/2024 10:03 PM PUBLIC OPINION SURVEY TAKER) Glucose, POC 140 70 - 199 mg/dL Blood 02/29/2024 10:0 3 PM PUBLIC OPINION SURVEY TAKER 02/29/2024 10:03 PM PUBLIC OPINION SURVEY TAKER Chava Weathers DO LAB POCT ORDERABLES - DEV ICE Final Result Performing Organization Address [facility] Co de Phone Number ADDI GONZALEZ [address] [place] [address] * (ABNORMAL) eGFR (02/29/2024 9:35 PM PUBLIC OPINION SURVEY TAKER) eGFR 15(L) >=60 mL/min/1. 73 m2 Comment: [...] last reviewed 2020. Blood 02/29/2024 9:35 PM PUBLIC OPINION SURVEY TAKER 02/29/2024 10:02 PM PUBLIC OPINION SURVEY TAKER us Radha Sheppard NP LAB BLOOD ORDERABLES Final R esult Performing Organization Address City/[facility]/ZIP Co de Phone Number [facility]DI GONZALEZ [address] [place] [address] * (ABNORMAL) Differential, auto (02/29/2024 9:35 PM PUBLIC OPINION SURVEY TAKER) Neutrophil abs 3.8 1.5 - 6.5 K/cumm Imm gran abs 0.1 0.0 - 0.1 K/cumm [facility] Lymphocyte abs 0.4(L) 0.8 - 3.3 K/cumm [facility] Monocyte abs 0.7 0.2 - 0.8 K/cumm [facility] Eosinophil abs 0.1 0.0 - 0.5 K/cumm [facility] Basophil abs 0.0 0.0 - 0.1 K/cumm [facility] Neutrophil pct 74.9 % [facility] Comment: Interpretive Data Percent cell count reference ranges are not reported, since discordance with absolute values may lead to misinterpretation of CBC data. Current Interpretive Data was last revised on 2017. Imm gran pct 1.0 % [facility] Comment: Interpretive Data Percent cell count reference ranges are not reported, since discordance with absolute values may lead to misinterpretation of CBC data. Current Interpretive Data was last revised on 2017. Lymphocyte pct 7.1 % [facility] Comment: Interpretive Data Percent cell count reference ranges are not reported, since discordance with absolute values may lead to misinterpretation of CBC data. Current Interpretive Data was last revised on 2017. Monocyte pct 13.8 % [facility] Comment: Interpretive Data Percent cell count reference ranges are not reported, since discordance with absolute values may lead to misinterpretation of CBC data. Current Interpretive Data was last revised on 2017. Eosinophil pct 2.4 % [facility] Comment: Interpretive Data Percent cell count reference ranges are not reported, since discordance with absolute values may lead to misinterpretation of CBC data. Current Interpretive Data was last revised on 2017. Basophil pct 0.8 % [facility] Comment: Interpretive Data Percent cell count reference ranges are not reported, since discordance with absolute values may lead to misinterpretation of CBC data. Current Interpretive Data was last revised on 2017. Blood 02/29/2024 9:35 PM PUBLIC OPINION SURVEY TAKER 02/29/2024 10:01 PM PUBLIC OPINION SURVEY TAKER us Radha Sheppard NP LAB BLOOD ORDERABLES Final R esult [facility]DI LISA [address] [place] [address] * (ABNORMAL) CBC with auto differential (02/29/2024 9:35 PM PUBLIC OPINION SURVEY TAKER) WBC 5.1 3.8 - 9.9 K/cumm Hgb 9.1(L) 13.0 - 17.5 g/dL [facility] Hct 27.4(L) 38.9 - 50.3 % [facility] Plt 197 150 - 400 K/cumm [facility] MPV 8.8(L) 9.1 - 12.3 fL [facility] RBC 2.74(L) 4.30 - 5.80 M/cumm [facility] MCV 100.0(H) 81.3 - 96.4 fL [facility] MCH 33.2 27.1 - 33.3 pg [facility] MCHC 33.2 32.3 - 35.7 g/dL [facility] RDW CV 13.1 11.1 - 14.9 % [facility] RDW SD 47.7 35.7 - 48.1 fL [facility] NRBC abs 0.00 0.00 - 0.01 K/cumm [facility] Blood 02/29/2024 9:35 PM PUBLIC OPINION SURVEY TAKER 02/29/2024 10:01 PM PUBLIC OPINION SURVEY TAKER [facility] LAB BLOOD ORDERABLES Final R esult Performing Organization Address [facility] Co de Phone Number [facility] [address] [facility] [place], [place] [id number] * Magnesium (02/29/2024 9:35 PM PUBLIC OPINION SURVEY TAKER) Pathologist [facility] Magnesium 1.8 1.4 - 2.5 mg/dL Blood 02/29/2024 9:35 PM PUBLIC OPINION SURVEY TAKER 02/29/2024 10:02 PM PUBLIC OPINION SURVEY TAKER [facility] BLOOD ORDERABLES Final R esult Performing Organization Address City/[facility]/ZIP Co de Phone Number [facility] [address] [place] [address] * (ABNORMAL) Comprehensive metabolic panel (02/29/2024 9:35 PM PUBLIC OPINION SURVEY TAKER) Sodium 136 135 - 145 mmol/L Potassium, pl 3.4 3.3 - 4.9 mmol/L [facility] Chloride 98 97 - 110 mmol/L [facility] CO2 26 22 - 32 mmol/L [facility] Anion gap 12 2 - 15 mmol/L [facility] BUN 38(H) 6 - 25 mg/dL [facility] Creatinine 3.81(H) 0.80 - 1.30 mg/dL [facility] Glucose 131 70 - 199 mg/dL [facility] Comment: Interpretive Data Fasting glucose >/= [...] Units/L [facility] Blood 02/29/2024 9:35 PM PUBLIC OPINION SURVEY TAKER 02/29/2024 10:02 PM PUBLIC OPINION SURVEY TAKER us Radha Sheppard NP LAB BLOOD ORDERABLES Final R esult [facility]DI [address] Department of Laboratories [place], [place] [id number] * Cardiology Document Scan (02/29/2024 10:54 AM PUBLIC OPINION SURVEY TAKER) Anatomical Region Laterality Modality Other us Catherine Flores MD CV CARDIAC SERVICES PROCEDU RES Final Result * Cardiology Document Scan (02/26/2024 3:00 PM PUBLIC OPINION SURVEY TAKER) Anatomical Region Laterality Modality Other us Gerry Garcia MD CV CARDIAC SERVICES PROCEDU RES Final Result * Cardiology Document Scan (02/25/2024 2:53 PM PUBLIC OPINION SURVEY TAKER) Anatomical Region Laterality Modality Other Result [facility] Gerry Garcia MD CV CARDIAC SERVICES PROCEDU RES Final Result * Cardiology Document Scan (02/24/2024 3:09 PM PUBLIC OPINION SURVEY TAKER) Anatomical Region Laterality Modality Other Result [facility] Pj Abreu MD CV CARDIAC SERVICES PRO CEDURES Final Result * Cardiology Document Scan (02/23/2024 2:52 PM PUBLIC OPINION SURVEY TAKER) Anatomical Region Laterality Modality Other Result [facility] Joe Arce MD CV CARDIAC SERVICES PROCEDURES F inal Result * Cardiology Document Scan (02/23/2024) Anatomical Region Laterality Modality Other Result [facility] Pj Abreu MD CV CARDIAC SERVICES PRO CEDURES Final Result * ECG 12 lead (02/22/2024 2:58 PM PUBLIC OPINION SURVEY TAKER) Result [facility] Wilfred Charles MD ECG ORDERABLES Final Res ult * Cardiology Document Scan (02/22/2024 2:48 PM PUBLIC OPINION SURVEY TAKER) Anatomical Region Laterality Modality Other Result [facility] Pj Abreu MD CV CARDIAC SERVICES PRO CEDURES Final Result * (ABNORMAL) Hemoglobin A1c (04/12/2019 4:10 AM PUBLIC OPINION SURVEY TAKER) Hgb A1C 7.1(H) 4.0 - 5.6 % [facility] Estimated Average Glucose 157 mg/dL [facility] Comment: The ADA recommends reporting an estimated Average Glucose (eAG) with all Hemoglobin A1c results using the equation derived from a study of 507 normal and diabetic adults. Minority populations were underrepresented and children were not included. (Diabetes Care 31:9133-7452, 2008). The eAG is not equivalent to a fasting glucose. Blood specimen (specimen) 04/12/2019 4:10 AM PUBLIC OPINION SURVEY TAKER 04/12/2019 6:03 AM PUBLIC OPINION SURVEY TAKER us David VOSS LAB BLOOD ORDERABLES Final Result [facility] [place] [address] * (ABNORMAL) Lipid panel (04/12/2019 3:41 AM PUBLIC OPINION SURVEY TAKER) Cholesterol 78 30 - 199 mg/dL [facility] [...] revised on 2017. Triglycerides 61 <=149 mg/dL [facility] Comment: Interpretive Data Ages < or = [...] revised on 2017. HDL 29(L) >=40 mg/dL [facility] Comment: Interpretive Data Ages < or = [...] on 2017. LDL, calculated 37 <=129 mg/dL [facility] Comment: Interpretive Data Ages < or = [...] revised on 2017. Non-HDL Cholesterol 49 mg/dL [facility] Comment: Interpretive Data Ages < or = [...] last revised on 2017. Chol/HDL ratio 3 [facility] Blood specimen (specimen) 04/12/2019 3:41 AM PUBLIC OPINION SURVEY TAKER 04/12/2019 5:47 AM PUBLIC OPINION SURVEY TAKER us Yvonne Matthew MD LAB BLOOD ORDERABLES F inal Result [facility] [place] [address] from Last 3 Months or Most Recently Relevant to Health Maintenance Insurance AET MEDICARE [facility] MEDICARE MEDICARE SOLUTIONS MEDICARE SOLUTIONS Advance Directives For more information, please contact: [phone] * Full Code (Latest Code Status on File) Date Activated Date Inactivated Comments 02/29/2024 8:34 PM 03/02/2024 7:26 PM * Full Code Date Activated Date Inactivated Comments 04/12/2019 3:29 AM 04/20/2019 6:41 PM Care Teams 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
--- OUTSIDE RECORDS SUMMARY | 2024-04-02 03:33 | XMS_ITS | Encounter Summary ---
Author Organization [facility] Address [address] [place] [address] Care Team Providers Care Iron Piler Name Role Phone Santi Roy MD Primary Care Provider [phone] Encounter Details Date Type Department Care Team (Late st Contact Info) Description 03/13/2021 Telephone [facility] [address] [place] [address] Santi Angelo MD [address] OF [facility] [place] [id number] Social History Tobacco Use Types Packs/Day Years [...] COVID-19? 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
--- OUTSIDE RECORDS SUMMARY | 2024-04-02 03:33 | XMS_ITS | Encounter Summary ---
Author Organization [facility] Address [address] [place] [address] Care Team Providers Care Key Ringer Name Role Phone Santi Roy MD Primary Care Provider Itz Boyd MD Unavailable [phone] Joe Arce MD Unavailable Encounter Details Date Type Department Care Team (Late st Contact Info) Description 07/28/2023 Telephone [facility] [address] [facility] [address] [place] [address] Harvinder Fernando MD [address] [facility] [address] [place] [address] Social History Tobacco Use Types Packs/Day Years Used Date Smoking Tobacco: Former Cigarettes 0.1 50 0 02/23/1942 - 02/24/1992 Smokeless Tobacco: Former Alcohol Use Standard Drinks/Week Comments Not Currently 0 (1 standard drink = 0.6 oz pur e alcohol) AUDIT-C Answer Date Recorded Q1: How often do you have a drink containing alcohol? Never 07/28/2023 Q2: How many drinks containi ng alcohol do you have on a typical day when you are drinking? Patient does not drink Q3: How often do you have si x or more drinks on one occasion? Never 07/28/2023 Personal Safety Answer Date Recorded Have you ever been in or are you currently in a harmful physical or emotional relationship or is someone making you feel afraid or unsafe? 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 Never 07/28/2023 1:05 PM Paola Goncalves RN Q2: How many drinks containing alcohol do you have on a typical day when you are drinking? Patient does not drink 07/28/2023 1:05 PM Paola Goncalves RN Q3: How often do you have six or more drinks on one occasion? Never 07/28/2023 1:05 PM Paola Goncalves RN documented as of this encounter Plan of Treatment Not on file documented as of this encounter Visit Diagnoses Not on filedocumented in this encounter Care Teams Key Ringer Relationship Specialty Start Date End Date Santi Roy MD [address] [place] [address] PCP - General Family Medicine 02/23/19 Itz Boyd MD [address] [facility] 1 [place] [address] Consulting Physician Nephrology 07/26/23 Joe Arce MD [address] [place] [address] Consulting Physician Cardiology 03/02/24 documented as of this encounter
--- OUTSIDE RECORDS SUMMARY | 2024-04-02 03:33 | XMS_ITS | Encounter Summary ---
Author Organization [facility] Address [address] [facility] [place] [address] Care Team Providers Care Data Management Associate Name Role Phone Santi Roy MD Primary Care Provider [phone] Encounter Details Date Type Department Care Team (Late st Contact Info) Description 05/15/2021 Telephone [facility] [address] [place] [address] Santi Angelo MD [address] OF [facility] [place] [address] Social History Tobacco Use Types Packs/Day Years [...] on filedocumented in this encounter Care Teams Data Management Associate Relationship Specialty Start Date End Date Santi Roy MD [address] [place] [address] PCP - General 12/18/19 documented as of this encounter
[2024-04-02 09:49] LABS: Anion Gap 9 mmol/L (4-12); Blood Urea Nitrogen 37 mg/dL (9-20); Calcium 9.2 mg/dL (8.4-10.2); Carbon Dioxide 32 mmol/L (22-30); Chloride 92 mmol/L (98-107); Estimated CRCL calculation 21 ml/min; Estimated Glomerular Filt Rate 21; Glucose 162 mg/dL (65-110); Potassium 4.1 mmol/L (3.4-5.0); Sodium 133 mmol/L (137-145)
--- NOTE | 2024-04-02 10:03 | WPDHPUPDATE1 ---
History and Physical Update Update Date/Time: 04/02/24 10:03 History and Physical has been reviewed, including an updated exam of the patient. There are NO changes in the patient's condition. Risks, benefits, and alternatives have been discussed and questions answered. Patient agrees to proceed with procedure.
--- NOTE | 2024-04-02 10:04 | P.HP_ITS ---
H&P: HPI History of Present Illness Date/Time: 04/02/24 10:04 Chief Complaint: AFib Narrative: 83-year-old with AFib history atrial appendage thrombus Review of Systems Cardiovascular: Comments: Chest pain PMFSH Past Medical History Medical History Obstructive sleep apnea End-stage renal disease on hemodialysis Insulin dependent diabetes mellitus Paroxysmal atrial fibrillation Hypertension Mitral valve regurgitation [id number] noted on RODNEY February 2020 Thrombus of left atrial appendage Duodenal ulcer disease Iron deficiency anemia Glaucoma Adenomatous colon polyp Chronic obstructive pulmonary disease Hyperlipidemia Primary osteoarthritis, unspecified site Surgical History Surgical History History of cholecystectomy History of open reduction and internal fixation (ORIF) procedure (1977) repair of left lower extremity fracture History of cataract extraction with lens replacement History of right shoulder replacement (2010) History of bilateral knee replacement (2004) History of esophagogastroduodenoscopy (EGD) (12/2019) History of colonoscopy with polypectomy (12/2019) Family History Family History Mother Diabetes mellitus Heart disease Father Lung cancer Sibling Lung cancer Breast cancer Son , 52 years of age Drug abuse Social History Social History Social History: Surrogate medical decision maker: bessie Lauren ([phone]). Code status: Full code. Smoking packs per day: 0 Smoking cigarettes per day: 0.0 Years smoked: 50 Smoking pack-years: 0.00 Smoking status: Former smoker Tobacco type: cigarettes Second hand tobacco smoke exposure: Yes Smoking end date: 02/07/02 Alcohol intake: former Substance use: never Substance use type: does not use Last use: 1999 Do You Feel Safe in your Home?: Yes Lack of Transportation: YES Lack of Food: Never True Current Housing: I Have Housing Concerned About Future Housing: No Difficulty Paying Gas/Electric Bills: No Difficulty Paying for Meds: No Currently Unemployed: No Education: Grade School Difficulty w/ Childcare or Family Care: No Living arrangements: with family Additional living arrangements comments: Lives in [place]. His grandson whom he helped raised lives with him. Occupation/Education: retired Additional occupation/education comments: [employer] Spiritual care concerns: No Meds Home Medications and Allergies Home Medications ?Medication ?Instructions ?Recorded ?Confirmed ?Type furosemide 20 mg tablet 20 mg PO QAM 04/27/19 03/30/24 History latanoprost 0.005 % eye drops 1 drop ophthalmic (eye) QPM 04/27/19 03/30/24 History alcohol swabs (Alcohol Prep Pads) 1 pad topical TID #100 ea 05/13/22 03/22/24 Rx blood-glucose meter (OneTouch #1 ea 11/22/22 03/22/24 Rx Ultra2 Meter) blood sugar diagnostic (EasyMax #300 ea 04/13/23 03/22/24 Rx strips) lancets 30 gauge (Easy Touch Twist #300 ea 06/28/23 03/22/24 Rx Lancets) clonidine HCl 0.1 mg tablet 0.1 mg PO BID #180 tabs 10/03/23 03/30/24 Rx pantoprazole 40 mg tablet,delayed 40 mg PO BID #180 tabs 10/03/23 03/30/24 Rx release insulin glargine 100 unit/mL (3 See Rx Instructions .Route 11/07/23 03/30/24 Rx mL) subcutaneous pen (Lantus .COMPLEX #15 mL Solostar U-100 Insulin) pen needle, diabetic 32 gauge x #100 ea 11/07/23 03/22/24 Rx 5/32 (UltiCare Pen Needle) fluticasone fur. 100 mcg-umeclid See Rx Instructions .Route 11/14/23 03/30/24 Rx 62.5 mcg-vilant 25 mcg .COMPLEX #180 ea inhalat.powder (Trelegy Ellipta) apixaban 2.5 mg tablet 2.5 mg PO BID 03/07/24 03/30/24 History diltiazem HCl 300 mg 300 mg PO DAILY 03/07/24 03/30/24 History capsule,extended release 24 hr (Cardizem CD) metoprolol succinate 200 mg 200 mg PO DAILY 03/07/24 03/30/24 History tablet,extended release 24 hr alprazolam 0.5 mg tablet (Xanax) 0.5 mg PO BID PRN anxiety #60 tabs 03/23/24 03/30/24 Rx Allergies Allergy/AdvReac Type Severity Reaction Status Date / Time No Known Allergies Allergy Verified 04/02/24 09:26 Vital Signs Vital Signs - 24 hr 04/02/24 09:28 Temperature 36.9 C Pulse Rate 108 H Respiratory Rate 18 Blood Pressure 141/98 H Pulse Oximetry 94 Oxygen Delivery Room Air Exam Narrative: Alert oriented Const: General: comfortable HENMT: Face/Nose/Sinus: Normal nares present Eyes: Sclera: sclerae normal Neck: Neck: supple Chest: Other: No Produce chest wall pain Resp: Effort & Inspection: normal respiratory effort Cardio: Rate: regular rate GI: Inspection: non-distended GI Palp: Yes Soft to palpation Skin: General skin exam: normal color Neuro: General: gait normal Extrem: General: normal to inspection Psych: Mental Status: mental status grossly normal H&P: Results Labs Labs: [facility] 04/02/24 09:22 Sodium 133 L Potassium 4.1 Chloride 92 L Carbon Dioxide 32 H BUN 37 H D Creatinine 2.91 H Glucose 162 H Calcium 9.2 Assessment and Plan Assessment and plan (1) Paroxysmal A-fib: Code(s): I48.0 - Paroxysmal atrial fibrillation Status: Acute (2) Thrombus of left atrial appendage: Code(s): I51.3 - Intracardiac thrombosis, not elsewhere classified Status: Acute Plan Rodney guided cardioversion
--- NOTE | 2024-04-02 10:06 | WPDMODSED ---
Moderate Sedation Note-Pt Data Patient Data Diagnosis: Atrial fibrillation Present Complaint: Atrial fibrillation Procedure to be performed/Plan: Moderate sedation Transesophageal echocardiogram with color-flow pulse-wave Doppler Electrical cardioversion Allergies Allergy/AdvReac Type Severity Reaction Status Date / Time No Known Allergies Allergy Verified 04/02/24 09:26 Home Medications ?Medication ?Instructions ?Recorded ?Confirmed ?Type furosemide 20 mg tablet 20 mg PO QAM 04/27/19 03/30/24 History latanoprost 0.005 % eye drops 1 drop ophthalmic (eye) QPM 04/27/19 03/30/24 History alcohol swabs (Alcohol Prep Pads) 1 pad topical TID #100 ea 05/13/22 03/22/24 Rx blood-glucose meter (OneTouch #1 ea 11/22/22 03/22/24 Rx Ultra2 Meter) blood sugar diagnostic (EasyMax #300 ea 04/13/23 03/22/24 Rx strips) lancets 30 gauge (Easy Touch Twist #300 ea 06/28/23 03/22/24 Rx Lancets) clonidine HCl 0.1 mg tablet 0.1 mg PO BID #180 tabs 10/03/23 03/30/24 Rx pantoprazole 40 mg tablet,delayed 40 mg PO BID #180 tabs 10/03/23 03/30/24 Rx release insulin glargine 100 unit/mL (3 See Rx Instructions .Route 11/07/23 03/30/24 Rx mL) subcutaneous pen (Lantus .COMPLEX #15 mL Solostar U-100 Insulin) pen needle, diabetic 32 gauge x #100 ea 11/07/23 03/22/24 Rx 5/32 (UltiCare Pen Needle) fluticasone fur. 100 mcg-umeclid See Rx Instructions .Route 11/14/23 03/30/24 Rx 62.5 mcg-vilant 25 mcg .COMPLEX #180 ea inhalat.powder (Trelegy Ellipta) apixaban 2.5 mg tablet 2.5 mg PO BID 03/07/24 03/30/24 History diltiazem HCl 300 mg 300 mg PO DAILY 03/07/24 03/30/24 History capsule,extended release 24 hr (Cardizem CD) metoprolol succinate 200 mg 200 mg PO DAILY 03/07/24 03/30/24 History tablet,extended release 24 hr alprazolam 0.5 mg tablet (Xanax) 0.5 mg PO BID PRN anxiety #60 tabs 03/23/24 03/30/24 Rx Current Medications: Active Medications Sodium Chloride (Normal Saline Iv) 1,000 mls @ 30 mls/hr IV CONT .Q24H FAISAL Sedation/Anesthesia: No previous sedation/anesthesia problems (including family history). [facility] Past Medical History Medical History Obstructive sleep apnea End-stage renal disease on hemodialysis Insulin dependent diabetes mellitus Paroxysmal atrial fibrillation Hypertension Mitral valve regurgitation [id number] noted on RODNEY February 2020 Thrombus of left atrial appendage Duodenal ulcer disease Iron deficiency anemia Glaucoma Adenomatous colon polyp Chronic obstructive pulmonary disease Hyperlipidemia Primary osteoarthritis, unspecified site Surgical History Surgical History History of cholecystectomy History of open reduction and internal fixation (ORIF) procedure (1977) repair of left lower extremity fracture History of cataract extraction with lens replacement History of right shoulder replacement (2010) History of bilateral knee replacement (2004) History of esophagogastroduodenoscopy (EGD) (12/2019) History of colonoscopy with polypectomy (12/2019) Family History Family History Mother Diabetes mellitus Heart disease Father Lung cancer Sibling Lung cancer Breast cancer Son , 52 years of age Drug abuse Social History Social History Social History: Surrogate medical decision maker: SCOTT Reyes, grandson ([phone]). Code status: Full code. Smoking packs per day: 0 Smoking cigarettes per day: 0.0 Years smoked: 50 Smoking pack-years: 0.00 Smoking status: Former smoker Tobacco type: cigarettes Second hand tobacco smoke exposure: Yes Smoking end date: 02/07/02 Alcohol intake: former Substance use: never Substance use type: does not use Last use: 1999 Do You Feel Safe in your Home?: Yes Lack of Transportation: YES Lack of Food: Never True Current Housing: I Have Housing Concerned About Future Housing: No Difficulty Paying Gas/Electric Bills: No Difficulty Paying for Meds: No Currently Unemployed: No Education: Grade School Difficulty w/ Childcare or Family Care: No Living arrangements: with family Additional living arrangements comments: Lives in [place]. His grandson whom he helped raised lives with him. Occupation/Education: retired Additional occupation/education comments: [employer] Spiritual care concerns: No Mod Sed Physical Exam Physical Exam Pre Procedural Exam: Normal: Appearance, Eyes, Ears, Nose, Neck, Throat, Airway, Lungs, Heart Size, Heart Rate, Neuro Exam, Abdomen, Extremities and Skin and Variation: Heart Rhythm (Irregular irregular) Hours since solid foods: 12 Hours since liquid intake: 12 Mallampati Classification: class II Internal Medicine - PN: Obj Da Vital Signs Vital Signs: Vital Signs - 24 hr 04/02/24 09:28 Temperature 36.9 C Pulse Rate 108 H Respiratory Rate 18 Blood Pressure 141/98 H Pulse Oximetry 94 Oxygen Delivery Room Air Meds/Results Medications: Active Medications Generic Name Dose Route Start Last Admin Trade Name Freq PRN Reason Stop Dose Admin Sodium Chloride 1,000 mls @ 30 mls/hr 04/02/24 08:30 Normal Saline Iv IV CONT .Q24H FAISAL Labs 04/02/24 09:22 Labs: Laboratory Results - last 24 hr 04/02/24 09:22 Sodium 133 L Potassium 4.1 Chloride 92 L Carbon Dioxide 32 H Anion Gap 9 BUN 37 H D Creatinine 2.91 H Estim Creat Clear Calc 21 Estimated GFR 21 L Glucose 162 H Calcium 9.2 ASA Classification/Sedation ASA Classification/Sedation ASA Class: II Emergent: No Risks: Risks, benefits and alternatives explained and patient/family accepted plan for sedation. Patient re-evaluated immediately prior to sedation.
--- NOTE | 2024-04-02 10:30 | ECG_ITS ---
Test Date: 2024-04-02 09:17:44 Measurements Intervals Siler Rate: 98 P: 0 WV: 0 QRS: 32 QRSD: 93 T: 4 QT: 348 QTc: 445 Interpretive Statements ATRIAL FIBRILLATION LOW QRS VOLTAGE IN PRECORDIAL LEADS INCOMPLETE RIGHT BUNDLE BRANCH BLOCK CONSIDER INFERIOR INFARCT, AGE INDETERMINATE BASELINE ARTIFACT- I, II, III ,AVR, AVL, AVF ABNORMAL ECG Compared to ECG 02/23/2024 09:55:49 Incomplete right bundle-branch block now present Electronically Signed On 04-02-2024 09:45:17 ANIMAL RESEARCHER by Michael Mccabe D.O.
--- NOTE | 2024-04-02 10:36 | WPDTECDV ---
RODNEY with Cardioversion Date of procedure: 04/02/24 Procedure Type: 1. Multiplanar transesophageal echocardiography with color-flow pulse-wave Doppler 2. Moderate sedation 3. Electrical cardioversion Diagnosis: Atrial fibrillation Indications: Atrial fibrillation Description of Procedure: After discussing risks, benefits alternatives of procedure patient agreeable via verbal and written informed consent. Risks discussed include esophageal rupture perforation, , need for surgery, bleeding, pain, infection, sore throat, shocking into more problematic heart rhythm, stroke, skin irritation or burn. After establishing continuous phototypesetting equipment monitor, pulse oxygenation and serial blood pressure assessments, time-out was taken the procedure was initiated. After topical sedation the echo scope was advanced into place inpatient was esophageal intubated without any difficulty. Extubation that occurred at the end of the procedure. There was no complications. Procedure start time 10:12 a.m. Procedure stop time 10:55 a.m. Patient was monitored and medications were administered by Anabella Conklin RN Complications: None Blood loss: None Medications used: A total of 3 mg of Versed and 75 mcg of fentanyl were given in divided doses as well as Hurricaine spray to the hypopharynx x2 for topical anesthetic. RODNEY: Moderate left atrial enlargement. Left atrial appendage does not show any obvious signs of mass or thrombus. Pectinate muscle likely seen as well as the posterior wall of left atrial appendage. No clear thrombus however is seen. Spontaneous contrast was noted within the left atrium itself. Right atrium is of normal size. Atrial septum is intact by color flow evidence of shunting. Aortic root measures 3.2 cm at the sinus of Valsalva. There is qnce-bn-swcjhtnt mitral regurgitation but mitral valve otherwise appears normal. Aortic valve is trileaflet mildly sclerotic with trivial aortic insufficiency. Pulmonic valve is normal without significant pulmonic insufficiency. Tricuspid valve is normal with mild tricuspid regurgitation. No pericardial effusion. Normal right ventricular size and function. Left ventricle is mildly enlarged with ejection fraction around 50%. Pulse-wave Doppler shows up to 75 cm per in the left atrial appendage Cardioversion: Initially 175 joules of biphasic synchronized energy was used which did not restore sinus rhythm. A 2nd attempt was used using 200 joules of synchronized biphasic energy which did restore sinus rhythm. Sedation: As detailed above, 3 mg Versed and 75 mcg of fentanyl in divided doses as well as topical anesthetic using Hurricaine spray Findings: As detailed above Conclusion: 1. Moderate sedation 2. Multiplanar transesophageal echocardiography with color flow and pulse wave Doppler 3. Electrical cardioversion
== END 2024-04-02 12:00 | disposition home or self-care (01) ==
PROVIDERS: PCP Family Medicine; Visit Provider Internal Medicine Cardiovascular Disease
PROC: (CPT 93312; principal; 2024-04-02 10:00)
PROC: 5A2204Z Restoration of Cardiac Rhythm, Single (ICD-10-PCS; 2024-04-02 10:00)
DX: I48.0 Paroxysmal atrial fibrillation (principal); I51.3 Intracardiac thrombosis, not elsewhere classified; R94.31 Abnormal electrocardiogram [ECG] [EKG]; I45.10 Unspecified right bundle-branch block; E78.5 Hyperlipidemia, unspecified; E11.22 Type 2 diabetes mellitus with diabetic chronic kidney disease; I12.0 Hypertensive chronic kidney disease with stage 5 chronic kidney disease or end stage renal disease; N18.6 End stage renal disease; G47.33 Obstructive sleep apnea (adult) (pediatric); D50.9 Iron deficiency anemia, unspecified; J44.9 Chronic obstructive pulmonary disease, unspecified; Z99.2 Dependence on renal dialysis; Z79.51 Long term (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 of inhaled steroids; Z79.01 Long term (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 of anticoagulants; Z79.4 Long term (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 of insulin; Z98.890 Other specified postprocedural states; Z90.49 Acquired absence of other specified parts of digestive tract; Z87.891 Personal history of nicotine dependence; Z86.0100 Personal history of colon polyps, unspecified; Z80.1 Family history of malignant neoplasm of trachea, bronchus and lung; Z80.3 Family history of malignant neoplasm of breast; Z82.49 Family history of ischemic heart disease and other diseases of the circulatory system
CPT/HCPCS: 36415; 80048; 92960; 93312; 93320; 93325; J2250; J3010; J7030

== ENCOUNTER 2024-04-07 18:23 | Emergency (ER) | payer MEDICARE, SELFPAY ==
[2024-04-07 18:24] VITALS: BP 162/87; PULSE 70; RESP 16; TEMP 36.5; O2SAT 96
[2024-04-07 18:39] VITALS: BP 169/76; PULSE 75; RESP 16; RESP 20; TEMP 36.6; O2SAT 100; O2SAT 99
[2024-04-07 20:08] LABS: Basophils Absolute Auto 0.1 K/mm3 (0.0-0.1); Basophils Percent Auto 0.8 % (0.2-1.2); Eosinophils Absolute Auto 0.2 K/mm3 (0-0.3); Eosinophils Percent Auto 2.4 % (0-4.4); Hematocrit 31.2 % (42.0-52.0); Hemoglobin 10.9 g/dL (14.0-18.0); Immature Granulocyte Absolute 0.02 K/mm3 (0.00-0.031); Immature Granulocyte Percent A 0.3 % (0-0.5); Lymphocytes Absolute Auto 0.71 K/mm3 (0.9-3.2); Lymphocytes Percent Auto 10.7 % (18.3-44.2); Mean Corpuscular HGB Conc 34.9 g/dl (32-36); Mean Corpuscular Volume 100.3 fl (80-100); Mean Platelet Volume 8.7 fl (7.4-10.4); Monocytes Absolute Auto 0.7 K/mm3 (0.1-0.6); Monocytes Percent Auto 11.2 % (2.6-8.5); Neutrophils Absolute Auto 4.9 K/mm3 (1.3-6.7); Neutrophils Percent Auto 74.6 % (45.5-73.1); Platelet Count Result 121 k/mm3 (150-375); Red Blood Count 3.11 M/mm3 (4.6-6.20); Red Cell Distribution Width 14.7 % (11.5-14.5); White Blood Count 6.6 K/mm3 (4.5-10.0)
[2024-04-07 20:21] LABS: Alanine Aminotransferase 24 U/L (6-50); Albumin Level 3.6 g/dL (3.5-5.1); Alkaline Phosphatase 89 U/L (38-126); Anion Gap 5 mmol/L (4-12); Aspartate Amino Transferase 29 U/L (17-59); Bilirubin,Total 0.8 mg/dL (0.2-1.3); Blood Urea Nitrogen 16 mg/dL (9-20); Calcium 8.6 mg/dL (8.4-10.2); Carbon Dioxide 36 mmol/L (22-30); Chloride 92 mmol/L (98-107); Estimated CRCL calculation 31 ml/min; Estimated Glomerular Filt Rate 32; Glucose 132 mg/dL (65-110); Magnesium 1.5 mg/dL (1.6-2.3); Sodium 133 mmol/L (137-145)
[2024-04-07 20:45] LABS: Influenza A QL RT-PCR Negative (Negative); Influenza B QL RT-PCR Negative (Negative); RSV RNA, RT-PCR Negative (Negative); SARS-CoV-2 RNA PCR Negative (Negative)
[2024-04-07] MEDS: POTASSIUM CHLORIDE 20 MEQ PACKET (FOR LIQUID) 40 MEQ PO (20:51)
--- NOTE | 2024-04-07 20:54 | ED.GENADULT ---
HPI - General Adult General Chief complaint: Recheck/Abnormal Lab/Rx Stated complaint: blood pressure is out of whack Time Seen by Provider: 04/07/24 19:03 History of Present Illness HPI narrative: Patient is an 80-year-old male who presents to the emergency department this evening with multiple complaints. Patient states that his blood pressure at home today was high with systolic blood pressure over 200. Patient also states that he has been having some bilateral hand tingling and feeling shaky. Patient does have past medical history of end-stage renal disease on HD and has had his dialysis session this morning and completed it. Currently denying any additional symptoms including any chest pain, admits to mild dyspnea, denies any nausea vomiting or diarrhea. No additional symptoms or concerns at this time. Related Data Home Medications ?Medication ?Instructions ?Recorded ?Confirmed ?Last Taken ?Type furosemide 20 mg tablet 20 mg PO QAM 04/27/19 03/30/24 03/30/24 History latanoprost 0.005 % eye drops 1 drop ophthalmic (eye) QPM 04/27/19 03/30/24 03/30/24 History Allergies Allergy/AdvReac Type Severity Reaction Status Date / Time No Known Allergies Allergy Verified 04/02/24 09:26 Review of Systems Review of Systems: All systems are reviewed and are negative unless stated otherwise in the HPI. [facility] Past Medical History Medical History Obstructive sleep apnea End-stage renal disease on hemodialysis Insulin dependent diabetes mellitus Paroxysmal atrial fibrillation Hypertension Mitral valve regurgitation [id number] noted on RODNEY February 2020 Thrombus of left atrial appendage Duodenal ulcer disease Iron deficiency anemia Glaucoma Adenomatous colon polyp Chronic obstructive pulmonary disease Hyperlipidemia Primary osteoarthritis, unspecified site Surgical History Surgical History History of cholecystectomy History of open reduction and internal fixation (ORIF) procedure (1977) repair of left lower extremity fracture History of cataract extraction with lens replacement History of right shoulder replacement (2010) History of bilateral knee replacement (2004) History of esophagogastroduodenoscopy (EGD) (12/2019) History of colonoscopy with polypectomy (12/2019) Family History Family History Mother Diabetes mellitus Heart disease Father Lung cancer Sibling Lung cancer Breast cancer Son , 52 years of age Drug abuse Social History Social History Social History: Surrogate medical decision maker: bessie Lauren ([phone]). Code status: Full code. Smoking packs per day: 0 Smoking cigarettes per day: 0.0 Years smoked: 50 Smoking pack-years: 0.00 Smoking status: Former smoker Tobacco type: cigarettes Second hand tobacco smoke exposure: Yes Smoking end date: 02/07/02 Alcohol intake: former Substance use: never Substance use type: does not use Last use: 1999 Do You Feel Safe in your Home?: Yes Lack of Transportation: YES Lack of Food: Never True Current Housing: I Have Housing Concerned About Future Housing: No Difficulty Paying Gas/Electric Bills: No Difficulty Paying for Meds: No Currently Unemployed: No Education: Grade School Difficulty w/ Childcare or Family Care: No Living arrangements: with family Additional living arrangements comments: Lives in [place]. His grandson whom he helped raised lives with him. Occupation/Education: retired Additional occupation/education comments: [employer] Spiritual care concerns: No Exam Narrative: General: Alert, awake, afebrile, in no acute distress, obese. HEENT: PERRL, no rhinorrhea, no post nasal drip, oropharynx clear. Neck: Trachea midline, no JVD, no lymphadenopathy. Cardiovascular: Regular rate and rhythm, no murmurs, rubs or gallops, no peripheral edema. Respiratory: Clear to auscultation bilaterally, no tachypnea, no wheezing, no rhonchi, no rubs, no respiratory distress. Abdomen: Soft, nontender, nondistended, no rebound, no guarding, no peritoneal signs. Musculoskeletal: No joint swelling or deformity, normal muscle tone. Skin: No rashes or petechia, no signs of infection. Psychiatric: Alert and oriented, normal behavior and judgment for situation. Neurological: Alert and oriented to person, place, and time. Follows all commands. No focal deficits, speech is clear and fluent. Course Vital Signs Vital signs: Vital Signs Temperature 97.7 F 04/07/24 18:24 Pulse Rate 70 04/07/24 18:24 Respiratory Rate 16 04/07/24 18:24 Blood Pressure 162/87 H 04/07/24 18:24 Pulse Oximetry 96 04/07/24 18:24 Temperature 97.8 F 04/07/24 18:39 Pulse Rate 75 04/07/24 18:39 Respiratory Rate 20 04/07/24 18:39 Blood Pressure 169/76 H 04/07/24 18:39 Pulse Oximetry 100 04/07/24 18:39 Medical Decision Making MDM Narrative Medical decision making narrative: The patient was evaluated by myself in the emergency department. History is obtained from patient who is an independent historian and physical exam was performed. External medical records were reviewed at this time. IV was established and pertinent tests were ordered. EKG was obtained which revealed sinus rhythm rate of 69 beats per Min. No evidence of acute ischemia. EKG was independently interpreted by me and is currently pending official cardiology read. Laboratory results obtained revealing a potassium of 3 and magnesium of 1.5 otherwise remainder of the blood work is unremarkable. Patient's kidney function is around his baseline. Viral swabs negative for COVID/influenza/RSV. Imaging studies obtained included CXR which was independently interpreted by me revealing: IMPRESSION: Prominent markings with minimal opacification in the left mid and lower zone. Early pneumonia is not excluded. Follow-up advised. Differential diagnosis considerations include dehydration, electrolyte derangements, anxiety, neuropathy. Comorbidities impacting this visit include history of end-stage renal disease on HD. I have evaluated and discussed social determinants of health with the patient that could potentially impact subsequent diagnosis and treatment plans. On repeat assessment of the patient, reevaluation revealed that the patient is doing well and is in no acute distress. Patient symptoms have improved since he arrived to our emergency department. Repeat vital signs were all reviewed and noted to be stable. Differential diagnosis and treatment plan were discussed with the patient at bedside. Patient agrees with discussion and after shared medical decision making agrees with discharge. All questions were answered to the patient's satisfaction. Patient will follow up with his PCP in 3-5 days. Patient was started on doxycycline to cover him for pneumonia and a script was days pharmacy to take as prescribed. Patient was provided with strict return precautions and instructed to return to the emergency department if any new or worsening symptoms develop. The patient was discharged in stable condition. Vital Signs Vital Signs: Vital Signs Temperature 97.7 F 04/07/24 18:24 Pulse Rate 70 04/07/24 18:24 Respiratory Rate 16 04/07/24 18:24 Blood Pressure 162/87 H 04/07/24 18:24 Pulse Oximetry 96 04/07/24 18:24 Temperature 97.8 F 04/07/24 18:39 Pulse Rate 75 04/07/24 18:39 Respiratory Rate 20 04/07/24 18:39 Blood Pressure 169/76 H 04/07/24 18:39 Pulse Oximetry 100 04/07/24 18:39 Lab Data 04/07/24 19:53 04/07/24 19:53 Labs: Lab Results 04/07/24 Range/Units 19:53 WBC 6.6 (4.5-10.0) K/mm3 RBC 3.11 L (4.6-6.20) M/mm3 Hgb 10.9 L (14.0-18.0) g/dL Hct 31.2 L (42.0-52.0) % MCV 100.3 H (80-100) fl MCH 35.0 H (26-34) pg MCHC 34.9 (32-36) g/dl RDW 14.7 H (11.5-14.5) % Plt Count 121 L D (150-375) k/mm3 MPV 8.7 (7.4-10.4) fl Immature Gran % (Auto) 0.3 (0-0.5) % Neut % (Auto) 74.6 H (45.5-73.1) % Lymph % (Auto) 10.7 L (18.3-44.2) % Mills % (Auto) 11.2 H (2.6-8.5) % Eos % (Auto) 2.4 (0-4.4) % Baso % (Auto) 0.8 (0.2-1.2) % Lymph # (Auto) 0.71 L (0.9-3.2) K/mm3 Mills # (Auto) 0.7 H (0.1-0.6) K/mm3 Eos # (Auto) 0.2 (0-0.3) K/mm3 Baso # (Auto) 0.1 (0.0-0.1) K/mm3 Abs Immat Gran (auto) 0.02 (0.00-0.031) K/mm3 Absolute Neuts (auto) 4.9 (1.3-6.7) K/mm3 Absolute Nucleated RBC 0.000 (0.0-0.012) K/mm3 Nucleated RBC % 0.0 (0.0-0.2) % Sodium 133 L (137-145) mmol/L Potassium 3.0 L (3.4-5.0) mmol/L Chloride 92 L (98-107) mmol/L Carbon Dioxide 36 H (22-30) mmol/L Anion Gap 5 (4-12) mmol/L BUN 16 D (9-20) mg/dL Creatinine 2.00 H (0.7-1.3) mg/dL Estim Creat Clear Calc 31 ml/min Estimated GFR 32 L (59 - ) Glucose 132 H (65-110) mg/dL Calcium 8.6 (8.4-10.2) mg/dL Magnesium 1.5 L (1.6-2.3) mg/dL Total Bilirubin 0.8 (0.2-1.3) mg/dL AST 29 (17-59) U/L ALT 24 (6-50) U/L Alkaline Phosphatase 89 (38-126) U/L Total Protein 6.0 L (6.3-8.2) g/dL Albumin 3.6 (3.5-5.1) g/dL Influenza A (RT-PCR) Negative (Negative) Influenza B (RT-PCR) Negative (Negative) RSV (RT-PCR) Negative (Negative) SARS-CoV-2 RNA (RT-PCR) Negative (Negative) Discharge Plan Discharge Clinical Impression: Hypomagnesemia, Acute hypokalemia, Hypertension, Pneumonia Patient Disposition: Home, Self-Care Condition: Improved Instructions: Antibiotic Form, Hypokalemia (ED), Bacterial Pneumonia (ED), Hypomagnesemia (ED) Additional Instructions: Please follow-up with your family doctor within the next 3-5 days. Return to the ED if any new or worsening symptoms develop. Take the prescribed antibiotic as instructed for your possible left-sided bacterial pneumonia. Patient Language: Slovak Prescriptions: New doxycycline hyclate 100 mg capsule 100 mg PO BID 5 Days Qty: 10 0RF No Action furosemide 20 mg tablet 20 mg PO QAM latanoprost 0.005 % drops 1 drop EACH EYE QPM Rx Instructions: install 1 drop in each eye @ bedtime apixaban 2.5 mg tablet 2.5 mg PO BID 30 Days Qty: 60 11RF metoprolol succinate [Toprol XL] 50 mg tablet extended release 24 hr 50 mg PO DAILY Qty: 30 11RF alcohol swabs [Alcohol Prep Pads] Pads, Medicated 1 pad topical TID Qty: 100 3RF (DME) blood-glucose meter [OneTouch Ultra2 Meter] Misc See Rx Instructions .ROUTE .COMPLEX Qty: 1 0RF Dose Instruction: USE DIRECTED TO TEST 3 TIMES DAILY Rx Instructions: USE DIRECTED TO TEST 3 TIMES DAILY (DME) EasyMax Strip See Rx Instructions .ROUTE .COMPLEX Qty: 300 3RF Dose Instruction: TESTS 3X PER DAY Rx Instructions: TESTS 3X PER DAY (DME) lancets [Easy Touch Twist Lancets] 30 gauge misc See Rx Instructions .Route Qty: 300 3RF Rx Instructions: test tid clonidine HCl 0.1 mg tablet 0.1 mg PO BID Qty: 180 2RF pantoprazole 40 mg tablet,delayed release (DR/EC) 40 mg PO BID Qty: 180 2RF (DME) pen needle, diabetic [UltiCare Pen Needle] 32 gauge x 5/32 needle See Rx Instructions .ROUTE .MEDSUPPLY Qty: 100 4RF Rx Instructions: As directed to administer insulin once daily insulin glargine [Lantus Solostar U-100 Insulin] 100 unit/mL (3 mL) insulin pen See Rx Instructions .ROUTE .COMPLEX Qty: 15 1RF Dose Instruction: INJECT 10 UNITS UNDER THE SKIN AT BEDTIME Rx Instructions: INJECT 17 UNITS UNDER THE SKIN AT BEDTIME Trelegy Ellipta 100-62.5-25 mcg blister with device See Rx Instructions .ROUTE .COMPLEX Qty: 180 3RF Dose Instruction: USE 1 INHALATION DAILY Rx Instructions: USE 1 INHALATION DAILY. Rinse mouth and spit after each use alprazolam [Xanax] 0.5 mg tablet 0.5 mg PO BID PRN (Reason: anxiety) Qty: 60 0RF Follow-up/Referrals: Santi Roy MD [Primary Care Provider] - 3 Days Time of Disposition: 21:06
[2024-04-07] MEDS: MAGNESIUM SULF 1 GM/D5W 100 ML 1 GM/100 ML BAG IVPB (21:00)
[2024-04-07 21:20] VITALS: BP 142/95; PULSE 74; RESP 25; TEMP 36.7; O2SAT 95
== END 2024-04-07 22:16 | disposition home or self-care (01) ==
PROVIDERS: Emergency Provider Emergency Medicine; PCP Family Medicine
DX: I12.0 Hypertensive chronic kidney disease with stage 5 chronic kidney disease or end stage renal disease (principal); J18.9 Pneumonia, unspecified organism; E83.42 Hypomagnesemia; E87.6 Hypokalemia; Z20.822 Contact with and (suspected) exposure to COVID-19; N18.6 End stage renal disease; E11.22 Type 2 diabetes mellitus with diabetic chronic kidney disease; Z99.2 Dependence on renal dialysis; I48.0 Paroxysmal atrial fibrillation; I34.0 Nonrheumatic mitral (valve) insufficiency; J44.9 Chronic obstructive pulmonary disease, unspecified; E11.39 Type 2 diabetes mellitus with other diabetic ophthalmic complication; H42 Glaucoma in diseases classified elsewhere; E78.5 Hyperlipidemia, unspecified; D50.9 Iron deficiency anemia, unspecified; G47.33 Obstructive sleep apnea (adult) (pediatric); M19.90 Unspecified osteoarthritis, unspecified site; Z96.611 Presence of right artificial shoulder joint; Z96.653 Presence of artificial knee joint, bilateral; Z87.891 Personal history of nicotine dependence; Z86.0101 Personal history of adenomatous and serrated colon polyps; Z90.49 Acquired absence of other specified parts of digestive tract; Z96.1 Presence of intraocular lens; Z98.49 Cataract extraction status, unspecified eye; Z79.01 Long term (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 of anticoagulants; Z79.899 Other long term (current) drug therapy; Z79.4 Long term (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 of insulin; I49.1 Atrial premature depolarization
CPT/HCPCS: 36415; 71045; 80053; 83735; 85025; 87637; 93005; 96365; 99284; A9270; J3475

== ENCOUNTER 2024-11-22 12:30 | Observation (INO) | payer MEDICARE, SELFPAY ==
--- OUTSIDE RECORDS SUMMARY | 2009-07-31 05:15 | XMS_ITS | Continuity of Care Document ---
Author Organization [facility] Address [address] [facility] utichristiano Mitchell Jose Antonio [address] [place] [address] Phone Care Team Providers Care Electrician Second Name Role Phone Martha Prasad Unavailable Unavailable Procedures Procedure Date Visual Field Examination(s) Office/outpatient Visit, Est Optic Nerve Head Eval Visual Field Examination-Professional Ju Visual Field Examination(s) Office/outpatient Visit, Est Dilated Retinal Exam W Interpretation De Office/outpatient Visit, Est Optic Nerve Head Eval Office/outpatient Visit, Est Optic Nerve Head Eval Visual Functional Status Assessed Office/outpatient Visit, Est Optic Nerve Topography Optic Nerve Topography Advance Directives Directive Yes / No Effective Date File Name No Information Encounters Encounter Description Practice Location Reason(s) For Visit Diagnoses Date Provider Providers Copied on Encounter [facility], [address] [place] [address] [address], [place], [place], [address], [place] tel:[phone] [facility] No Information 0 Shanice Thomas. Nash [facility] , [address], [place], [address], [place]. tel:[phone] Referring Provider: Nash [facility] [address], [place], [address]. tel:[phone] Office/outpat ient Visit, Est [facility], [address] [place] [address] [address], [place], [place], [address], [place] tel:[phone] [facility] No Information Dec-0 3-200 9 Shanice Thomas. [address] [facility] , [address], [place], [place], [facility], . tel:[phone] [facility], [address] [place] [address] [address], [place], [place], [address], [place] tel:[phone] [facility] No Information Alejandro-3 0-200 9 Shanice Landn. [address] [facility] , [address], [place], [place], [facility], . tel:[phone] Referring Provider: Martha Arboleda, [address] [place], [place] [address]ate Center [address], [place], [place], [facility]. tel:[phone] [facility], [address] [place] [address] [address], [place], [place], [address], tel:[phone] [facility] No Information Alejandro-0 4-200 9 Shanice Bundy [address] [place], [place] [address]ate Center , [address], [place], [place], [facility], . tel:[phone] Referring Provider: Martha Arboleda, [address] [place], [place] [address]ate [address], [place], [place], [facility]. tel:[phone] Office/outpat ient Visit, [facility], [address] [place] [address] [address], [place], [place], [address], [place] tel:[phone] [facility] No Information Dec-1 1-200 8 Shanice Thomas. [address] [place], [place] [address]ate Center , [address], [place], [facility], . tel:[phone] Office/outpat ient Visit, Est [facility], [address] [place] [address] [address], [place], [place], [address], [place] tel:[phone] [facility] No Information Alejandro-1 9-200 8 Shanice Thomas. [address] [facility] , [address], [place], [facility], . tel:[phone] Office/outpat ient Visit, [facility], [address] [place] [address] [address], [place], [place], [address], tel:[phone] [facility] No Information Dec-2 0-200 7 Shanice Landn. [address] [facility] , [address], [place], [facility], [place]. tel:[phone] Office/outpat ient Visit, [facility], [address] [place] [address] [address], [place], [place], [address], [place] tel:[phone] [facility] No Information 1200 7 Shanice Thomas. [address] [facility] , [address], [place], [facility], [place]. tel:[phone] [facility], [address] [place] [address] [address], [place], [place], [address], tel:[phone] [facility] No Information Jan- 9200 6 Shanice Thomas. [address] [facility] , [address], [place], [facility], . tel:[phone] Referring Provider: Nash [facility] [address], [place], [facility]. tel:[phone] Family History Family Member Type Diagnosis Age At Onset No Information Payers Payer name Insurance type Covered libertarian ID Authoriza tidalila(s) [place] [id number] Social History Type Description Quantity Date Captured Comments Sex Male Smoking Status No Information Chief Complaint And Reason For Visit No Information Reason For Referral Reason For Referral No Information History Of Present Illness Encounter Date Complaint History Of Prese nt Illness No Information Functional Status Date Functional Assessmen t No Information Instructions Date Instruction Additional Infor mation No Information Assessments Type Assessment Date No Information Patient Care Teams Name Effective Dates (start - stop) Status Members No Information
--- OUTSIDE RECORDS SUMMARY | 2009-07-31 05:15 | XMS_ITS | Continuity of Care Document ---
Author Organization [facility] Address [address] [facility] utichristiano Mitchell Jose Antonio [address] [place] [address] Phone Care Team Providers Care Kitchen Bath Designer Name Role Phone Martha Prasad Unavailable Unavailable [...] Diagnoses Date Provider Providers Copied on Encounter [facility], [address] [place] [address] [address], [place], [place], [address], [place] tel:[phone] [facility] No Information 0 Shanice Thomas. Nash [facility] [place] , [address], [place], [address], [place]. tel:[phone] Referring Provider: Nash Edwards [facility] [address], [place], [address]. tel:[phone] Office/outpat ient Visit, Est [facility], [address] [place] [address] [address], [place], [place], [address], [place] tel:[phone] [facility] [place] No Information Dec-0 3-200 9 Shanice Thomas. [address] [facility] , [address], [place], [facility], . tel:[phone] [facility], [address] [place] [address] [address], [place], [place], [address], [place] tel:[phone] [facility] No Information Alejandro-3 0-200 9 Shanice Landn. [address]Jonathan [facility] , [address], [place], [facility], . tel:[phone] Referring Provider: Martha Arboleda, [address] [place], [place] [address]ate Center [address], [place], [place], [facility]. tel:[phone] [facility], [address] [place] [address] [address], [place], [place], [address], tel:[phone] [facility] No Information Alejandro-0 4-200 9 Shanice Bundy [address] [place], [place] [address]ate Center , [address], [place], [facility], . tel:[phone] Referring Provider: Martha Arboleda, [address] [place], [place] [address]ate Center [address], [place], [place], [facility]. tel:[phone] Office/outpat ient Visit, [facility], [address] [place] [address] [address], [place], [place], [address], [place] tel:[phone] [facility] No Information Dec-1 1-200 8 Shanice Thomas. [address] [place], [place] [address]ate Center , [address], [place], [facility], . tel:[phone] Office/outpat ient Visit, Est [facility], [address] [place] [address] [address], [place], [place], [address], [place] tel:[phone] [facility] No Information Alejandro-1 9-200 8 Shanice Thomas. [address] [facility] , [address], [place], [facility], . tel:[phone] Office/outpat ient Visit, [facility], [address] [place] [address] [address], [place], [place], [address], tel:[phone] [facility] [place] No Information Dec-2 0-200 7 Shanice Landn. [address] [facility] , [address], [place], [facility], [place]. tel:[phone] Office/outpat ient Visit, [facility], [address] [place] [address] [address], [place], [place], [address], [place] tel:[phone] [facility] [place] No Information 1200 7 Shanice Thomas. [address] [facility] [place] , [address], [place], [facility], [place]. tel:[phone] [facility], [address] [place] [address] [address], [place], [place], [address], tel:[phone] SEC [facility] No Information Jan- 9200 6 Shanice Thomas. 24[address] [facility] , [address], [place], [facility], . tel:[phone] Referring Provider: Nash Edwards [facility] [address], [place], [facility]. tel:[phone] Family History Family Member Type Diagnosis Age At Onset No Information Payers Payer name Insurance type Covered alliance party ID Authoriza tidalila(s) [place] [id number] Social History Type Description Quantity Date Captured [...]
--- OUTSIDE RECORDS SUMMARY | 2009-07-31 05:15 | XMS_ITS | Continuity of Care Document ---
Author Organization [facility] Address [address] [facility] utichristiano Mitchell Jose Antonio [address] [place] [address] Phone Care Team Providers Care Cloth Picker Name Role Phone Martha Prasad Unavailable Unavailable [...] Diagnoses Date Provider Providers Copied on Encounter [facility], [address] [place] [address] [address], [place], [place], [address], [place] tel:[phone] [facility] No Information 0 Shanice Thomas. Nash [facility] [place] , [address], [place], [address], [place]. tel:[phone] Referring Provider: Nash Edwards [facility] [address], [place], [address]. tel:[phone] Office/outpat ient Visit, Est [facility], [address] [place] [address] [address], [place], [place], [address], [place] tel:[phone] [facility] [place] No Information Dec-0 3-200 9 Shanice Thomas. [address] [facility] , [address], [place], [facility], . tel:[phone] [facility], [address] [place] [address] [address], [place], [place], [address], [place] tel:[phone] [facility] No Information Alejandro-3 0-200 9 Shanice Landn. [address]Jonathan [facility] , [address], [place], [facility], . tel:[phone] Referring Provider: Martha Arboleda, [address] [place], [place] [address]ate Center [address], [place], [place], [facility]. tel:[phone] [facility], [address] [place] [address] [address], [place], [place], [address], tel:[phone] [facility] No Information Alejandro-0 4-200 [address] Bund[address] [place], [place] [address]ate Center , [address], [place], [facility], . tel:[phone] Referring Provider: Martha Arboleda, [address] [place], [place] [address]ate Center [address], [place], [facility]. tel:[phone] Office/outpat ient Visit, [facility], [address] [place] [address] [address], [place], [place], [address], [place] tel:[phone] [facility] No Information Dec-1 1-200 8 Shanice Thomas. [address] [place], [place] [address]ate Center , [address], [place], [facility], . tel:[phone] Office/outpat ient Visit, Est [facility], [address] [place] [address] [address], [place], [place], [address], [place] tel:[phone] [facility] No Information Alejandro-1 9-200 8 Shanice Thomas. [address] [facility] , [address], [place], [facility], . tel:[phone] Office/outpat ient Visit, [facility], [address] [place] [address] [address], [place], [place], [address], tel:[phone] [facility] [place] No Information Dec-2 0-200 7 Shanice Landn. [address] [facility] , [address], [place], [facility], [place]. tel:[phone] Office/outpat ient Visit, [facility], [address] [place] [address] [address], [place], [place], [address], [place] tel:[phone] [facility] [place] No Information 1200 7 Shanice Thomas. [address] [facility] [place] , [address], [place], [facility], [place]. tel:[phone] [facility], [address] [place] [address] [address], [place], [place], [address], tel:[phone] SEC [facility] No Information Jan- 9200 6 Shanice Thomas. 2421 [facility] , [address], [place], [facility], . tel:[phone] Referring Provider: Nash Edwards [facility] [address], [place], [facility]. tel:[phone] Family History Family Member Type Diagnosis Age At Onset No Information Payers Payer name Insurance type Covered alliance party ID Authoriza tidalila(s) [place] [id number] Social History Type Description Quantity Date Captured [...]
[2024-11-22] VITALS (14 sets, daily range): BP systolic 100–133; BP diastolic 55–113; PULSE 95–135; RESP 14–28; TEMP 36.6–37.1; O2SAT 94–98; BMI 34.4
--- NOTE | ~2024-11-22 | XR_ITS ---
XR chest 1V portable INDICATION:sob . REFERENCE: None FINDINGS: A single AP of the chest demonstrates enlarged heart. Right dialysis catheter terminates at the atrial caval junction. There is mild bibasal atelectasis and groundglass opacities. There is no evidence of pneumothorax or pleural effusion. IMPRESSION: Mild bilateral basilar atelectasis and groundglass opacity may represent pulmonary congestion. Reviewed, dictated and finalized at location S. IMPRESSION: Mild bilateral basilar atelectasis and groundglass opacity may represent pulmon lili congestion.
--- NOTE | 2024-11-22 12:39 | ECG_ITS ---
Test Date: 2024-11-22 12:52:39 Measurements Intervals Asher Rate: 119 P: 0 DE: 0 QRS: 8 QRSD: 89 T: 5 QT: 326 QTc: 460 Interpretive Statements ATRIAL FIBRILLATION WITH RAPID VENTRICULAR RESPONSE LOW QRS VOLTAGE IN PRECORDIAL LEADS POSSIBLE RIGHT VENTRICULAR CONDUCTION DELAY BORDERLINE ST-T WAVE ABNORMALITY- INFERIOR LEADS BASELINE ARTIFACT- I, III, AVR, AVL ABNORMAL ECG Compared to ECG 04/07/2024 21:09:29 Sinus rhythm no longer present Electronically Signed On 11-22-2024 13:00:21 CDT by Michael Mccabe D.O.
--- OUTSIDE RECORDS SUMMARY | 2024-11-22 14:05 | XMS_ITS | Encounter Summary ---
Author Organization [facility] Healthcare Address [address] [place] [address] Care Team Providers Care Button Sawyer Name Role Phone Santi Roy MD Primary Care Provider Itz Boyd MD Unavailable [phone] Joe Arce MD Unavailable Encounter Details Date Type Department Care Team (Late st Contact Info) Description 07/28/2023 Telephone [facility] [address] [place] [address] Harvinder Fernando MD [address] [facility] [address] [place] [address] Social History Tobacco Use Types [...] on file 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 Gender Identity Not on file Sexual Orientation Not on file documented as of this encounter Functional Status * AUDIT-C Score Answer Date of Assessment Author 0 [...] on filedocumented in this encounter Care Teams Button Sawyer Relationship Specialty Start Date End Date Santi Roy MD [address] [facility] [address] [facility] [address] [place] [address] PCP - General Family Medicine 02/23/19 Itz Boyd MD [address] [facility] 1 [place] [address] Consulting Physician Nephrology 07/26/23 Joe Arce MD [address] [facility] [address] [place] [address] Consulting Physician Cardiology 03/02/24 documented as of this encounter
--- OUTSIDE RECORDS SUMMARY | 2024-11-22 14:05 | XMS_ITS | Clinical Summary ---
Author Organization [facility] [address] Address [address] [place] [address] Care Team Providers Care Kettle Operator Head Name Role Phone Santi Roy MD Primary Care Provider Itz Boyd MD Unavailable [phone] Joe Arce MD Unavailable Allergies No known [...] Plus Lancet 30 gauge misc 4 Active apixaban (ELIQUIS) 2.5 mg tabletIndications :atrial fibrillation Take 1 tablet (2.5 mg total) by mouth 2 (two) times a day 60 tablet 5 Active metoprolol XL (TOPROL-XL) 50 mg extended release tablet Take 1 tablet (50 mg total) by mouth daily 5 Active hydrALAZINE (APRESOLINE) 25 mg tablet Take 1 tablet (25 mg total) by mouth 3 (three) times a day 5 Active dilTIAZem CD (CARDIZEM CD) 300 mg 24 hr capsule TAKE 1 CAPSULE(300 MG) BY MOUTH DAILY 90 capsule 3 5 Active Active Problems Problem Noted Date Diagnosed Date Hypertension associated with diabetes 07/13/2024 Atrial fibrillation with rapid ventricular respo nse 02/29/2024 ESRD (end stage renal disease) 07/29/2023 ESRD (end stage renal disease) on dialysis 07/27 Fluid retention 09/16/2020 End stage renal disease 01/16/2020 Assessment & Plan (07/29/2023 11:34 AM [...] unsure 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 prior to his routine appointment already scheduled [...] Pulmonary hypertension 05/30/2019 PAF (paroxysmal atrial fibrillation) 04/27/2019 Pneumonia of left lower lobe due to Streptococcus pneumoniae 04/20/2019 Assessment & Plan (04/20/2019 12:12 PM [...] (04/13/2019): Added automatically from request for surgery [id number] Gastrointestinal hemorrhage associated with casandra ritis 04/11/2019 Overview (04/15/2019): Added automatically from request for surgery [id number] Left carotid bruit 02/23/2019 Bilateral lower extremity edema 02/23/2019 Hyperlipidemia associated with type 2 diabetes m ellitus 02/23/2019 SALOME on CPAP 02/23/2019 Hypertension associated with stage 3 chronic kidney disease due to type 2 diabetes mellitus 02/23/2019 Atypical chest pain 02/23/2019 Type 2 diabetes mellitus with hyperglycemia 02/07 Hyperlipidemia 02/23/2019 Assessment & Plan (07/29/2023 11:35 AM CDT): Impression: Chronic and stable. Plan: Continue atorvastatin. Hypertension 02/23/2019 Assessment & Plan (07/29/2023 11:35 AM CDT): Impression: Chronic stable. Plan: Continue amlodipine, clonidine, hydralazine, metoprolol Osteoarthritis of shoulder 04/09/2011 Arthralgia of shoulder 01/11/2011 Surgical History Surgery Date Site/Laterality Comments CATARACT [...] associated wi th type 2 diabetes mellitus (HCC) 02/23/2019 SALOME on CPAP 02/23/2019 Hypertension associated with stage 3 chronic kidney disease due to type 2 diabetes mellitus (HCC) 02/23/2019 Type 2 diabetes mellitus wit h hyperglycemia (HCC) 02/23/2019 PAF (paroxysmal atrial fibrillation) 04/27/2019 CARDIOVERSION Pulmonary hypertension (HCC) 05/30/2019 End stage renal disease 01/16/2020 WAS DOIN G PERITONEAL BUT CATH REMOVED D/T INFECTION Iron deficiency anemia 01/16/2020 COPD (chronic obstructive pu lmonary disease) Lung disease Wheezing Obesity Family History Medical [...] drink = 0.6 oz pur e alcohol) [facility] Utilities Answer Date Recorded In the past 12 months has e [employer], gas, oil, or water company threatened to shut off services in your home? No 03/01/2024 Social Connection and Isolation Panel Answer Date Recorded In a typical week, how many times do you talk on the phone with family, friends, or neighbors? More than three times a week 03/01/2024 How often do you get togethe r with friends or relatives? More than three times a week 03/01/2024 How often do you attend chur ch or adventist services? Never 03/01/2024 Do you belong to any clubs o r organizations such as latter-day groups, unions, fraternal or athletic groups, or [...] any time in the past 12 m [facility], were you homeless or living in a penitentiary (including now)? No 03/01/2024 Personal Safety Answer Date Recorded Have you ever been in or are you currently in a harmful physical or emotional relationship or is someone making you feel afraid or unsafe? 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 Male 1:08 PM TILE SETTER Gender Identity Not on file Sexual Orientation Not on file Obstetrics History Last Filed Vital Signs Vital Sign Reading Time Taken Comments Blood Pressure 130/56 07/13/2024 10:21 AM CDT Pulse 78 07/13/2024 10:21 AM CDT Temperature 36.6 C (97.9 F) 03/02/2024 12:30 PM TILE SETTER Respiratory Rate 18 03/02/2024 12:30 PM TILE SETTER Oxygen Saturation 95% 07/13/2024 10:21 AM CDT Inhaled Oxygen Concentration - - Weight 106.6 kg (235 lb) 07/13/2024 10:21 AM CDT Height 177.8 cm (5' 10) 07/13/2024 10:21 AM CDT Body Mass Index 33.72 07/13/2024 10:21 AM CDT Plan of Treatment Health Maintenance Due Date Last Done Comments Albumin Creatinine Ratio, Urine 1940 Depression Screening 1940 Dilated Eye Exam 1940 Foot Exam 1940 DTaP/Tdap/Td Vaccine (1 - Tdap) 06/10/1951 Pneumococcal vaccine 65+ (1 of 2 - PCV) 06/10/1959 Zoster Vaccine (1 of 2) 1990 Well Visit 65+ 2005 Hemoglobin A1C 10/13/2019 04/12/2019 Lipid Panel 04/11/2020 04/12/2019 Influenza Vaccine (#1) 2024 9, 11/06/2017, 11/08/2016, Additional history exists Fall Risk Assessment 03/02/2025 03/02/2024, 12/06/19 20 eGFR 03/02/2025 03/02/2024, 02/08, 02/29/2024 Hepatitis B Screening Completed 08/12/2022 Medical Devices Implanted Type Area Case Work Aide Device Identifier Shelf Expiration Date Model / Serial / Lot Total Joint Bilateral: Knee Total Right: Shoulder BigTip [employer] Embosafe 15.5fr 24cm Basic 2 Lumen Kit Catheter [id number] - [id number] Implanted:Qty: 1 on 08/04/2023 by Harvinder Fernando MD at [facility] [employer] 06/06/2025 [id number] / / [id number] Procedures Procedure Name Priority Date/Time Associated Diagnosis Comments EGFR Routine 03/02/2024 2:55 AM TILE SETTER HEMOGLOBIN A1C Routine 04/12/2019 4:10 AM TILE SETTER LIPID PANEL STAT 04/12/2019 3:41 AM TILE SETTER from Last 3 Months or Most Recently Relevant to Health Maintenance Results * (ABNORMAL) eGFR (03/02/2024 2:55 AM TILE SETTER) eGFR 19(L) >=60 mL/min/1. 73 m2 Comment: [...] last reviewed 2020. Blood 03/02/2024 2:55 AM TILE SETTER 03/02/2024 3:39 AM TILE SETTER us Jenaro Le MD LAB BLOOD ORDERABLES Final Res ult [facility] [address] Department [place] [address] * (ABNORMAL) Hemoglobin A1c (04/12/2019 4:10 AM TILE SETTER) Hgb A1C 7.1(H) 4.0 - 5.6 % [facility] Estimated Average Glucose 157 mg/dL [facility] Comment: The ADA recommends reporting an estimated Average Glucose (eAG) with all Hemoglobin A1c results using the equation derived from a study of 507 normal and diabetic adults. Minority populations were underrepresented and children were not included. (Diabetes Care 31:1946-0170, 2008). The eAG is not equivalent to a fasting glucose. Blood specimen (specimen) 04/12/2019 4:10 AM TILE SETTER 04/12/2019 6:03 AM TILE SETTER David VOSS LAB BLOOD ORDERABLES Final Result Performing Organization Address City/[facility]/ZIP Co de Phone Number [facility] Department [place] [address] * (ABNORMAL) Lipid panel (04/12/2019 3:41 AM TILE SETTER) Cholesterol 78 30 - 199 mg/dL [facility] Comment: Interpretive Data Ages < or [...] revised on 2017. Triglycerides 61 <=149 mg/dL [facility] Comment: Interpretive Data Ages < or [...] revised on 2017. HDL 29(L) >=40 mg/dL [facility] Comment: Interpretive Data Ages < or = [...] on 2017. LDL, calculated 37 <=129 mg/dL [facility] Comment: Interpretive Data Ages < or = [...] revised on 2017. Non-HDL Cholesterol 49 mg/dL [facility] Comment: Interpretive Data Ages < or = [...] Risk Reduction in Children and Adolescents. Pediatrics 2010;128:S213 2. NCEP Expert Panel. Circulation 2004;110:227 Current Interpretive Data was last revised on 2017. Chol/HDL ratio 3 [facility] Blood specimen (specimen) 04/12/2019 3:41 AM TILE SETTER 04/12/2019 5:47 AM TILE SETTER us Yvonne Matthew MD LAB BLOOD ORDERABLES F inal Result [facility] Department [place] [address] from Last 3 Months or Most Recently Relevant to Health Maintenance Insurance [address] [id number] [facility] MEDICARE [employer] MEDICARE [facility] MEDICARE ADVANTAGE [facility] MEDICARE ADVANTAGE Advance Directives For more information, please contact: [phone] * Full Code (Latest Code Status on File) Date Activated Date Inactivated Comments 02/29/2024 8:34 PM 03/02/2024 7:26 PM * Full Code Date Activated Date Inactivated Comments 04/12/2019 3:29 AM 04/20/2019 6:41 PM Care Teams Kettle Operator Head Relationship Specialty Start Date End Date Santi Roy MD [address] [place] [address] PCP - General Family Medicine 02/23/19 Itz Boyd MD [address] [facility] 1 [place] [address] Consulting Physician Nephrology 07/26/23 Joe Arce MD [address] [place] [address] Consulting Physician Cardiology 03/02/24
--- OUTSIDE RECORDS SUMMARY | 2024-11-22 14:05 | XMS_ITS | Clinical Summary ---
Author Organization [facility] Address [address] [place] [address] Care Team Providers Care Washer Repairman Name Role Phone Santi Roy MD Primary Care Provider Source Comments [facility],non-owned Affiliates and Associated Physician Practices is amultiple site organization consisting of ambulatory clinics and hospital sitesin [place], [place], [place] and [place]. This disclosure is being madepursuant to the Care Everywhere program and may not contain all information available regarding this patient. Last updated 17.[facility] Allergies No known active allergies Medications * Be aware that medications may not be up to date on this document. Alwaysverify current medications with the patient. atorvastatin (LIPITOR) 20 MG tablet Take 20 mg by mouth Active ALPRAZolam (XANAX) 0.5 MG tablet Take 0.5 mg by mouth 2 times daily as needed Active amLODIPine (NORVASC) 10 MG tablet 1 Active amiodarone (CORDARONE) 200 MG tablet Take 200 mg by mouth Active cloNIDine (CATAPRES) 0.1 MG tablet Take 0.1 mg by mouth Active furosemide (LASIX) 20 MG tablet Take 80 mg by mouth 2 times daily 1 Active hydrALAZINE (APRESOLINE) 25 MG tablet Take 25 mg by mouth 3 times daily 1 Active latanoprost (XALATAN) 0.005 % ophthalmic solution 1 Active metOLazone (ZAROXOLYN) 5 MG tablet Take 5 mg by mouth once daily Active metoprolol succinate XL 24hr (TOPROL XL) 100 MG tablet Take 25 mg by mouth once daily Active pantoprazole EC (PROTONIX) 40 MG tablet Take 40 mg by mouth 2 times daily 0 Active traMADol-aceta minophen (ULTRACET) 37.5-325 MG tablet Take 1 tablet by mouth every 6 hours as needed Active insulin glargine (LANTUS) vial Inject 8 Units subcutaneously at bedtime Active Fluticasone-Um eclidin-Vilant (TRELEGY ELLIPTA IN) Active VENTOLIN HFA 108 (90 Base) MCG/ACT inhaler INHALE 1 INHALATION BY MOUTH EVERY 4 TO 6 HOURS NEEDED FOR SHORTNESS OF BREATH OR WHEEZING 1 Active amoxicillin-cl avulanate (AUGMENTIN) 500-125 MG tablet Take 1 tablet by mouth every 12 hours 2 Active KLOR-CON M20 20 MEQ tablet 2 Active acetaminophen (TYLENOL) 325 MG tablet Take 2 (two) tablets by mouth every 6 hours as needed for Fever or Pain Maximum allowable Acetaminophen amount = 4 Grams (4000 mg) / 24 hours. 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 Gender Identity Not on file Sexual Orientation [...] 7:28 AM CDT Height 177.8 cm (5' 10) 05/18/2021 7:28 AM CDT Body Mass Index 29.7 05/18/2021 7:28 AM CDT Plan of Treatment Health Maintenance Due Date Last Done Comments DTAP/TDAP/TD VACCINES (1 - Tdap) 06/10/1959 PNEUMOCOCCAL VACCINE 50+ (1 of 1 - PCV) 1990 ZOSTER VACCINE (1 of 2) 1990 Respiratory Syncytial Virus (RSV) Vaccine Pt: or over 60 yrs (1 - 1-dose 75+ series) 06/10/2015 DEPRESSION SCREENING 02/08/2024 COVID-19 VACCINE (3 - 2024-2 6 season) 2024 01/15/2021, 04/14/2020 INFLUENZA VACCINE (#1) 2024 10/21/2020 HEPATITIS B VACCINE Aged Out No longe r eligible based on patient's age to complete this topic HIB VACCINE Aged Out No longer eligi ble based on patient's age to complete this topic HPV VACCINE Aged Out No longer eligi ble based on patient's age to complete this topic MENINGOCOCCAL (Group B) VACCINE SHARED DECISION-MAKING Aged Out No longer eligible based on patient's age to complete this topic MENINGOCOCCAL GROUPS A/C/Y/W VACCINE Aged Out No longer eligible b ased on patient's age to complete this topic Medical Devices Implanted Type Area Appliquer Device Identifier Shelf Expiration Date Model / Serial / Lot Mesh Srg 6x3in Lg Pore Knit Mfl [facility] Rnd Implanted:Qty: 1 on 03/30/2021 by Santi Angelo MD at [facility] Left: [employer] 11/04/2025 [id number] / / [id number] Mesh Srg 6x3in Lg Pore Knit Mfl [employer] Rnd Implanted:Qty: 1 on 03/30/2021 by Santi Angelo MD at [facility] Right: [employer] 11/04/2025 [id number] / / [id number] Insurance AETNA AETNA Care Teams Washer Repairman Relationship Specialty Start Date End Date Santi Roy MD [address] [place] [address] PCP - General 12/18/19
--- OUTSIDE RECORDS SUMMARY | 2024-11-22 14:06 | XMS_ITS | Encounter Summary ---
Author Organization [facility] Address [address] [place] [address] Care Team Providers Care Representative Personal Service Name Role Phone Santi Roy MD Primary Care Provider [phone] Encounter Details Date Type Department Care Team (Late st Contact Info) Description 05/15/2021 Telephone [facility] [address] [place] [address] Santi Angelo MD [address] OF [facility] [place] [address] Social History Tobacco Use Types Packs/Day Years Used Date Smoking Tobacco: Former Cigarettes 1.5 45 1 944 - 1989 Smokeless Tobacco: Former Chew Alcohol Use Standard Drinks/Week Comments Not Currently 0 (1 standard drink = 0.6 oz pur e alcohol) 20yrs ago Sex and Gender Information Value Date Recorded Sex Assigned at Not on file Legal Sex Male 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
--- OUTSIDE RECORDS SUMMARY | 2024-11-22 14:06 | XMS_ITS | Encounter Summary ---
Author Organization [facility] Address [address] [place] [address] Care Team Providers Care District Fire Chief Name Role Phone Santi Roy MD Primary Care Provider Encounter Details Date Type Department Care Team (Late st Contact Info) Description 10/28/2020 Telephone [facility] [address] [place] [address] Santi Angelo MD [address] OF [facility] [place] [address] Social History Tobacco Use Types Packs/Day Years Used Date Smoking Tobacco: Former Cigarettes 1.5 45 Smokeless Tobacco: Former Chew Alcohol Use Standard Drinks/Week Comments Not Currently 0 (1 standard drink = 0.6 oz pur e alcohol) 20yrs ago Sex and Gender Information Value Date Recorded Sex Assigned at Not on file Legal Sex Male 3:10 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
--- OUTSIDE RECORDS SUMMARY | 2024-11-22 14:06 | XMS_ITS | Encounter Summary ---
Author Organization [facility] Address [address] [place] [address] Care Team Providers Care Chief Information Security Officer Name Role Phone Santi Roy MD Primary Care Provider [phone] Encounter Details Date Type Department Care Team (Late st Contact Info) Description 03/13/2021 Telephone [facility] [address] [place] [address] Santi Angelo MD [address] OF [facility] [place] [address] Social History Tobacco Use Types Packs/Day Years Used Date Smoking Tobacco: Former Cigarettes 1.5 45 1 944 - 1989 Smokeless Tobacco: Former Chew Alcohol Use Standard Drinks/Week Comments Not Currently 0 (1 standard drink = 0.6 oz pur e alcohol) 20yrs ago Sex and Gender Information Value Date Recorded Sex Assigned at Not on file Legal Sex Male 3:10 PM MAGNETIC TAPE WINDER Gender Identity Not on file Sexual Orientation Not on file COVID-19 Exposure Response Date Recorded In the last month, have you been in contact with someone who was confirmed or suspected to have Coronavirus / COVID-19? No / Unsure 02/20/2021 12:39 PM MAGNETIC TAPE WINDER documented as of this encounter Plan of Treatment Not on file documented as of this encounter Visit Diagnoses Not on filedocumented in this encounter Care Teams Chief Information Security Officer Relationship Specialty Start Date End Date Santi Roy MD [address] [place] [address] PCP - General 12/18/19 documented as of this encounter
--- OUTSIDE RECORDS SUMMARY | 2024-11-22 14:06 | XMS_ITS | Encounter Summary ---
Author Organization [facility] Address [address] [place] [address] Care Team Providers Care Clark Driver Name Role Phone Santi Roy MD Primary Care Provider [phone] Encounter Details Date Type Department Care Team (Late st Contact Info) Description 03/04/2021 Telephone [facility] [address] [place] [address] Santi Angelo MD [address] [place] [phone] Social History Tobacco Use Types Packs/Day Years Used Date Smoking Tobacco: Former Cigarettes 1.5 45 1 944 - 1989 Smokeless Tobacco: Former Chew Alcohol Use Standard Drinks/Week Comments Not Currently 0 (1 standard drink = 0.6 oz pur e alcohol) 20yrs ago Sex and Gender Information Value Date Recorded Sex Assigned at Not on file Legal Sex Male 3:10 PM SALES SUPPORT ADVISOR Gender Identity Not on file Sexual Orientation Not on file COVID-19 Exposure Response Date Recorded In the last month, have you been in contact with someone who was confirmed or suspected to have Coronavirus / COVID-19? No / Unsure 02/20/2021 12:39 PM SALES SUPPORT ADVISOR documented as of this encounter Plan of Treatment Not on file documented as of this encounter Visit Diagnoses Not on filedocumented in this encounter Care Teams Clark Driver Relationship Specialty Start Date End Date Santi Roy MD [address] [place] [address] PCP - General 12/18/19 documented as of this encounter
--- OUTSIDE RECORDS SUMMARY | 2024-11-22 14:06 | XMS_ITS | Encounter Summary ---
Author Organization [facility] Address [address] [place] [address] Care Team Providers Care Group Activities Aide Name Role Phone Santi Roy MD Primary Care Provider [phone] Encounter Details Date Type Department Care Team (Late st Contact Info) Description 09/29/2020 Telephone [facility] [address] [place] [address] Santi Angelo MD [address] OF [facility] [place] [address] Social History Tobacco Use Types Packs/Day Years Used Date Smoking Tobacco: Former Cigarettes 1.5 45 Smokeless Tobacco: Former Chew Alcohol Use Standard Drinks/Week Comments Not Currently 0 (1 standard drink = 0.6 oz pur e alcohol) 20yrs ago Sex and Gender Information Value Date Recorded Sex Assigned at Not on file Legal 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
--- OUTSIDE RECORDS SUMMARY | 2024-11-22 14:06 | XMS_ITS | Encounter Summary ---
Author Organization [facility] Address [address] [place] [address] Care Team Providers Care Dielectric Testing Machine Operator Name Role Phone Santi Roy MD Primary Care Provider [phone] Encounter Details Date Type Department Care Team (Late st Contact Info) Description 04/23/2021 Telephone [facility] [address] [place] [address] Santi Angelo MD [address] OF [facility] [place] [address] Social History Tobacco Use Types Packs/Day Years Used Date Smoking Tobacco: Former Cigarettes 1.5 45 1 944 - 1989 Smokeless Tobacco: Former Chew Alcohol Use Standard Drinks/Week Comments Not Currently 0 (1 standard drink = 0.6 oz pur e alcohol) 20yrs ago Sex and Gender Information Value Date Recorded Sex Assigned at Not on file Legal Sex Male 3:10 PM TRAFFIC 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
--- OUTSIDE RECORDS SUMMARY | 2024-11-22 14:06 | XMS_ITS | Encounter Summary ---
Author Organization [facility] Address [address] [place] [address] Care Team Providers Care Director Of Diagnostic Imaging Name Role Phone Santi Roy MD Primary Care Provider Itz Boyd MD Unavailable [phone] Joe Arce MD Unavailable Encounter Details Date Type Department Care Team (Late st Contact Info) Description 02/21/2024 Orders Only [facility] Health Information Management [address] [place] [address] Scanning, Provider Social History Tobacco Use Types Packs/Day Years [...] on file Legal Sex Male 1:08 PM DIRECTOR OF CURRICULUM AND INSTRUCTION Gender Identity Not on file Sexual Orientation Not on file documented as of this encounter Plan of Treatment Not on file documented as of this encounter Procedures Procedure Name Priority Date/Time Associated Diagnosis Comments SCAN - RADIOLOGY/IMAGING 02/21/2024 documented in this encounter Results * SCAN - RADIOLOGY/IMAGING (02/21/2024) Anatomical Region Laterality Modality Other Provider Scanning Final Result documented in this encounter Visit Diagnoses Not on filedocumented in this encounter Care Teams Director Of Diagnostic Imaging Relationship Specialty Start Date End Date Santi Roy MD [address] [place] [address] PCP - General Family Medicine 02/23/19 Itz Boyd MD [address] [facility] [address] [place] [address] Consulting Physician Nephrology 07/26/23 Joe Arce MD [address] [place] [address] Consulting Physician Cardiology 03/02/24 documented as of this encounter
--- OUTSIDE RECORDS SUMMARY | 2024-11-22 14:06 | XMS_ITS | Encounter Summary ---
Author Organization [facility] Address [address] [place] [address] Care Team Providers Care Greens Picker Name Role Phone Santi Roy MD Primary Care Provider Itz Boyd MD Unavailable [phone] Joe Arce MD Unavailable Encounter Details Date Type Department Care Team (Late st Contact Info) Description 04/02/2024 Orders Only [facility] Information Management [address] [place] [address] Scanning, Provider Social History Tobacco Use Types Packs/Day Years Used Date Smoking Tobacco: Former Cigarettes 0.1 50 0 [birth year]/23/1942 - 02/24/1992 Smokeless Tobacco: Former Alcohol Use Standard Drinks/Week Comments Not Currently 0 (1 standard drink = 0.6 oz pur e alcohol) [facility] Utilities Answer Date Recorded In the past 12 months has [email or web address], gas, oil, or water company threatened to [...] often do you attend chur ch or mandaeism services? Never 03/01/2024 Do you belong to any clubs o r organizations such as voodoo groups, unions, fraternal or athletic groups, or [...] any time in the past 12 m [facility], were you homeless or living in a detention (including now)? No 03/01/2024 Personal Safety Answer Date Recorded Have you ever been in or are you currently in a harmful physical or emotional relationship or is someone making you feel afraid or unsafe? 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 Male 1:08 PM PSYCH TECH Gender Identity Not on file Sexual Orientation Not on file documented as of this encounter Plan of Treatment Not on file documented as of this encounter Procedures Procedure Name Priority Date/Time Associated Diagnosis Comments CARDIOLOGY DOCUMENT SCAN 04/02/2024 documented in this encounter Results * Cardiology Document Scan (04/02/2024) Anatomical Region Laterality Modality Other us Provider Scanning CV CARDIAC SERVICES PROCEDURES Edited Result - Final documented in this encounter Visit Diagnoses Not on filedocumented in this encounter Care Teams Greens Picker Relationship Specialty Start Date End Date Santi Roy MD [address] [place] [address] PCP - General Family Medicine 02/23/19 Itz Boyd MD [address] [facility] 1 [place] [address] Consulting Physician Nephrology 07/26/23 Joe Arce MD [address] [place] [address] Consulting Physician Cardiology 03/02/24 documented as of this encounter
--- OUTSIDE RECORDS SUMMARY | 2024-11-22 14:06 | XMS_ITS | Encounter Summary ---
Author Organization [facility] Address [address] [facility] [facility] [place] [address] Care Team Providers Care Manager Actuarial Name Role Phone Santi Roy MD Primary Care Provider [phone] Encounter Details Date Type Department Care Team (Late st Contact Info) Description 03/17/2021 Telephone [facility] [address] [place] [address] Santi Angelo MD [address] OF [facility] [place] [phone] Social History Tobacco Use Types Packs/Day Years Used Date Smoking Tobacco: Former Cigarettes 1.5 45 1 944 - 1989 Smokeless Tobacco: Former Chew Alcohol Use Standard Drinks/Week Comments Not Currently 0 (1 standard drink = 0.6 oz pur e alcohol) 20yrs ago Sex and Gender Information Value Date Recorded Sex Assigned at Not on file Legal Sex Male 3:10 PM PUBLIC SERVICE OFFICER Gender Identity Not on file Sexual Orientation Not on file COVID-19 Exposure Response Date Recorded In the last month, have you been in contact with someone who was confirmed or suspected to have Coronavirus / COVID-19? No / Unsure 02/20/2021 12:39 PM PUBLIC SERVICE OFFICER documented as of this encounter Plan of Treatment Not on file documented as of this encounter Visit Diagnoses Not on filedocumented in this encounter Care Teams Manager Actuarial Relationship Specialty Start Date End Date Santi Roy MD [address] [place] [address] PCP - General 12/18/19 documented as of this encounter
--- OUTSIDE RECORDS SUMMARY | 2024-11-22 14:06 | XMS_ITS | Encounter Summary ---
Author Organization [facility] Address [address] [facility] [place] [address] Care Team Providers Care Plumbing Engineer Name Role Phone Santi Roy MD Primary Care Provider [phone] Encounter Details Date Type Department Care Team (Late st Contact Info) Description 09/30/2020 Telephone [facility] [address] [place] [address] Santi Angelo MD [address] OF [facility] [place] [address] Social History Tobacco Use Types Packs/Day Years Used Date Smoking Tobacco: Former Cigarettes 1.5 45 Smokeless Tobacco: Former Chew Alcohol Use Standard Drinks/Week Comments Not Currently 0 (1 standard drink = 0.6 oz pur e alcohol) 20yrs ago Sex and Gender Information Value Date Recorded Sex Assigned at Not on file Legal Sex Male 3:10 PM PROJECTS MANAGER Gender Identity Not on file Sexual Orientation Not on file documented as of this encounter Plan of Treatment Not on file documented as of this encounter Visit Diagnoses Not on filedocumented in this encounter Care Teams Plumbing Engineer Relationship Specialty Start Date End Date Santi Roy MD [address] [place] [address] PCP - General 12/18/19 documented as of this encounter
--- OUTSIDE RECORDS SUMMARY | 2024-11-22 14:06 | XMS_ITS | Encounter Summary ---
Author Organization [facility] Healthcare Address [address] [place] [address] Care Team Providers Care Assessment Services Manager Name Role Phone Santi Roy MD Primary Care Provider tIz Boyd MD Unavailable [phone] Joe Arce MD Unavailable Encounter Details Date Type Department Care Team (Late st Contact Info) Description 03/05/2024 [facility] Post Discharge Follow up phone call [address] [address] Jana Sebastian, PAKO Social History Tobacco Use Types Packs/Day Years Used Date Smoking Tobacco: Former Cigarettes 0.1 50 0 02/23/1942 - 02/24/1992 Smokeless Tobacco: Former Alcohol Use Standard Drinks/Week Comments Not Currently 0 (1 standard drink = 0.6 oz pur e alcohol) [facility] Utilities Answer Date Recorded In the past 12 months has [employer], gas, oil, or water company threatened to [...] often do you attend chur ch or buddhist services? Never 03/01/2024 Do you belong to any clubs o r organizations such as sabianist groups, unions, fraternal or athletic groups, or [...] any time in the past 12 m [facility], were you homeless or living in a skilled nursing (including now)? No 03/01/2024 Personal Safety Answer Date Recorded Have you ever been in or are you currently in a harmful physical or emotional relationship or is someone making you feel afraid or unsafe? 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 Male 1:08 PM UNDERWRITING ANALYST Gender Identity Not on file Sexual Orientation Not on file documented as of this encounter Plan of Treatment Not on file documented as of this encounter Visit Diagnoses Not on filedocumented in this encounter Care Teams Assessment Services Manager Relationship Specialty Start Date End Date Santi Roy MD [address] [place] [address] PCP - General Family Medicine 02/23/19 Itz Boyd MD [address] [facility] [address] [place] [address] Consulting Physician Nephrology 07/26/23 Joe Arce MD [address] [place] [address] Consulting Physician Cardiology 03/02/24 documented as of this encounter
--- OUTSIDE RECORDS SUMMARY | 2024-11-22 14:06 | XMS_ITS | Encounter Summary ---
Author Organization [facility] Healthcare Address [address] [place] [address] Care Team Providers Care Cook Mess Name Role Phone Santi Roy MD Primary Care Provider Itz Boyd MD Unavailable [phone] Joe Arce MD Unavailable Encounter Details Date Type Department Care Team (Late st Contact Info) Description 02/28/2024 Orders Only [facility] Health Information Management [address] [place] [id number] Scanning, Provider Social History Tobacco Use Types Packs/Day Years Used Date Smoking Tobacco: Former Cigarettes 0.1 50 0 02/23/1942 - 02/24/1992 Smokeless Tobacco: Former Alcohol Use Standard Drinks/Week Comments Not Currently 0 (1 standard drink = 0.6 oz pur e alcohol) [facility] Utilities Answer Date Recorded In the past 12 months has [employer], gas, oil, or water company threatened to [...] often do you attend chur ch or jew services? Never 03/01/2024 Do you belong to any clubs o r organizations such as restorationism groups, unions, fraternal or athletic groups, or [...] any time in the past 12 m [facility], were you homeless or living in a chcf (including now)? No 03/01/2024 Personal Safety Answer Date Recorded Have you ever been in or are you currently in a harmful physical or emotional relationship or is someone making you feel afraid or unsafe? 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 Male 1:08 PM PLASTIC FABRICATOR Gender Identity Not on file Sexual Orientation Not on file documented as of this encounter Functional Status * AUDIT-C Score Answer Date of Assessment Author 0 02/29/2024 7:55 PM Sylvia Garza, PAKO * Question Answer Date of Assessment Author Q1: How often do you have a drink containing alcohol? Never 02/29/2024 7:55 PM Maureen Garza R N Q2: How many drinks containing alcohol do you have on a typical day when you are drinking? Patient does not drink 02/29/2024 7:55 PM Maureen Garza, PAKO Q3: How often do you have six or more drinks on one occasion? Never 02/29/2024 7:55 PM Maureen Garza R N documented as of this encounter Plan of Treatment Not on file documented as of this encounter Procedures Procedure Name Priority Date/Time Associated Diagnosis Comments SCAN - RADIOLOGY/IMAGING 02/28/2024 SCAN - LABS 02/28/2024 CARDIOLOGY DOCUMENT SCAN 02/28/2024 documented in this encounter Results * SCAN - LABS (02/28/2024) us Provider Scanning Final Result * SCAN - RADIOLOGY/IMAGING (02/28/2024) Anatomical Region Laterality Modality Other us Provider Scanning Final Result * Cardiology Document Scan (02/28/2024) Anatomical Region Laterality Modality Other us Provider Scanning CV CARDIAC SERVICES PROCEDURES Final Result documented in this encounter Visit Diagnoses Not on filedocumented in this encounter Care Teams Cook Mess Relationship Specialty Start Date End Date Santi Roy MD [address] [place] [address] PCP - General Family Medicine 02/23/19 Itz Boyd MD [address] [facility] [address] [address] [place] [address] Consulting Physician Nephrology 07/26/23 Joe Arce MD [address] [place] [address] Consulting Physician Cardiology 03/02/24 documented as of this encounter
--- NOTE | 2024-11-22 14:21 | ED.ARRPALP ---
HPI - Arrhythmia/Palpitations General Chief Complaint: Arrhythmia/Palpitations <Angelica Moe PA-C - Last Filed: 11/22/24 19:21> Stated Complaint: PALPATATIONS <Angelica Moe PA-C - Last Filed: 11/22/24 19:21> Time Seen by Provider: 11/22/24 14:21 <Angelica Moe PA-C - Last Filed: 11/22/24 19:21> Focused HPI: This is a 84 year old male that presents to the ER for palpitations, elevated heart rate. Ongoing over the last 2 days. Reports he was told at dialysis this morning he should go to the ER. Patient takes Diltiazem and Metoprolol. Took these medications this morning. Reports associated shortness of breath. Denies chest pain. GENERAL: Elderly, well-nourished, and in no acute distress. HEAD: Normocephalic, atraumatic. CHEST: Clear to auscultation. ?No respiratory distress. HEART: Irregularly irregular NEURO: ?Alert and oriented x3. Patient screened in triage and initial orders placed.? ?Additional care and disposition to be based upon?diagnostic testing and treatment. <Angelica Moe PA-C - Last Filed: 11/22/24 19:21> History of Present Illness HPI narrative: agree with MSE. Pt says he has felt irregular hr for two days. Today at dialysis pt says his HR was 120's the whole time. Pt denies CP. Pt has some mild SOB. Pt has been cardioverted twice for a fib. Pt sees Dr Charles. Pt denies CP. <Brent Soliman III, DO - Last Filed: 11/22/24 17:00> Related Data Home Medications: Home Medications ?Medication ?Instructions ?Recorded ?Confirmed ?Last Taken ?Type furosemide 20 mg tablet 20 mg PO QAM 04/27/19 08/06/24 03/30/24 History latanoprost 0.005 % eye drops 1 drop ophthalmic (eye) QPM 04/27/19 08/06/24 03/30/24 History amlodipine 5 mg tablet 5 mg PO BID 08/06/24 08/06/24 Unknown History diltiazem HCl 300 mg 300 mg PO DAILY 08/06/24 08/06/24 Unknown History capsule,extended release 24 hr (Cardizem CD) <Angelica Moe PA-C - Last Filed: 11/22/24 19:21> Allergies/Adverse Reactions: Allergies Allergy/AdvReac Type Severity Reaction Status Date / Time No Known Allergies Allergy Verified 11/22/24 12:31 <Angelica Moe PA-C - Last Filed: 11/22/24 19:21> Review of Systems Review of Systems: All systems reviewed & are unremarkable except as noted in HPI and below <Brent Durbin Soliman III, DO - Last Filed: 11/22/24 17:00> [facility] Past Medical History Medical History: Medical History Obstructive sleep apnea End-stage renal disease on hemodialysis Insulin dependent diabetes mellitus Paroxysmal atrial fibrillation Hypertension Mitral valve regurgitation [id number] noted on [place] February 2020 Thrombus of left atrial appendage Duodenal ulcer disease Iron deficiency anemia Glaucoma Adenomatous colon polyp Chronic obstructive pulmonary disease Hyperlipidemia Primary osteoarthritis, unspecified site <Angelica Moe PA-C - Last Filed: 11/22/24 19:21> Surgical History Surgical History: Surgical History History of cholecystectomy History of open reduction and internal fixation (ORIF) procedure (1977) repair of left lower extremity fracture History of cataract extraction with lens replacement History of right shoulder replacement (2010) History of bilateral knee replacement (2004) History of esophagogastroduodenoscopy (EGD) (12/2019) History of colonoscopy with polypectomy (12/2019) <Angelica Moe PA-C - Last Filed: 11/22/24 19:21> Family History Family History: Family History Mother Diabetes mellitus Heart disease Father Lung cancer Sibling Lung cancer Breast cancer Son , 52 years of age Drug abuse <Angelica Moe PA-C - Last Filed: 11/22/24 19:21> Social History Social History: Social History Social History: Surrogate medical decision maker: SCOTT Simpsonen, grandson ([phone]). Code status: Full code. Smoking packs per day: 0 Smoking cigarettes per day: 0.0 Years smoked: 50 Smoking pack-years: 0.00 Smoking status: Former smoker Tobacco type: cigarettes Second hand tobacco smoke exposure: Yes Smoking end date: 02/07/02 Alcohol intake: former Substance use: never Substance use type: does not use Last use: 2000 Do You Feel Safe in your Home?: Yes Lack of Transportation: YES Lack of Food: Never True Current Housing: I Have Housing Concerned About Future Housing: No Difficulty Paying Gas/Electric Bills: No Difficulty Paying for Meds: No Currently Unemployed: No Education: Grade School Difficulty w/ Childcare or Family Care: No Living arrangements: with family Additional living arrangements comments: Lives in [place]. His grandson whom he helped raised lives with him. Occupation/Education: retired Additional occupation/education comments: [employer] Spiritual care concerns: No <Angelica Moe PAGirmaC - Last Filed: 11/22/24 19:21> Exam Const: General: healthy appearing and no acute distress <Brent Ramakrishna Soliman III, DO - Last Filed: 11/22/24 17:00> Nutritional Appearance: well nourished <Brent Ramakrishna Soliman III, DO - Last Filed: 11/22/24 17:00> Orientation/consciousness: patient oriented x3 <Brent Ramakrishna Soliman III, DO - Last Filed: 11/22/24 17:00> Limitations: no limitations <Brent Ramakrishna Soliman III, DO - Last Filed: 11/22/24 17:00> Chest: Chest palpation & inspection: normal inspection of the chest <Brent Ramakrishna Soliman III, DO - Last Filed: 11/22/24 17:00> Resp: Effort & Inspection: normal respiratory effort <Brent Ramakrishna Soliman III, DO - Last Filed: 11/22/24 17:00> Auscultation: crackles <Brent Ramakrishna Soliman III, DO - Last Filed: 11/22/24 17:00> Cardio: Rate: tachycardic <Brent Ramakrishna Soliman III, DO - Last Filed: 11/22/24 17:00> Rhythm: abnormal rhythm <Brent Ramakrishna Soliman III, DO - Last Filed: 11/22/24 17:00> GI: GI Palp: Yes Soft to palpation and No Tenderness to palpation present (GI) <Brent Ramakrishna Soliman III, DO - Last Filed: 11/22/24 17:00> Auscultation: normal bowel sounds <Brent Ramakrishna Soliman III, DO - Last Filed: 11/22/24 17:00> Skin: Rashes: no rashes <Brent Ramakrishna Soliman III, DO - Last Filed: 11/22/24 17:00> Wounds: no wounds <Brent Ramakrishna Soliman III, DO - Last Filed: 11/22/24 17:00> Neuro: General: patient oriented x3, moves all extremities, no meningeal signs and no focal motor deficits <Brent Ramakrishna Soliman III, DO - Last Filed: 11/22/24 17:00> Speech: normal speech <Brent Ramakrishna Soliman III, DO - Last Filed: 11/22/24 17:00> Extrem: General: edema <Brent Ramakrishna Soliman III, DO - Last Filed: 11/22/24 17:00> Psych: Mental Status: mental status grossly normal <Brent Ramakrishna Soliman III, DO - Last Filed: 11/22/24 17:00> Affect: normal affect <Brent Ramakrishna Soliman III, DO - Last Filed: 11/22/24 17:00> Attitude: cooperative <Brent Ramakrishna Soliman III, DO - Last Filed: 11/22/24 17:00> Course Vital Signs Vital signs: Vital Signs Temperature 98.7 F 11/22/24 12:50 Pulse Rate 135 H 11/22/24 12:50 Respiratory Rate 18 11/22/24 12:50 Blood Pressure 130/55 L 11/22/24 12:50 Pulse Oximetry 95 11/22/24 12:50 Oxygen Delivery Room Air 11/22/24 12:50 Temperature 97.8 F 11/22/24 14:49 Pulse Rate 104 H 11/22/24 17:17 Respiratory Rate 19 11/22/24 17:17 Blood Pressure 102/75 11/22/24 17:17 Pulse Oximetry 95 11/22/24 17:17 Oxygen Delivery Room Air 11/22/24 14:47 <Angelica Moe PA-C - Last Filed: 11/22/24 19:21> Vital Signs Temperature 98.7 F 11/22/24 12:50 Pulse Rate 135 H 11/22/24 12:50 Respiratory Rate 18 11/22/24 12:50 Blood Pressure 130/55 L 11/22/24 12:50 Pulse Oximetry 95 11/22/24 12:50 Oxygen Delivery Room Air 11/22/24 12:50 Temperature 97.8 F 11/22/24 14:49 Pulse Rate 104 H 11/22/24 17:17 Respiratory Rate 19 11/22/24 17:17 Blood Pressure 102/75 11/22/24 17:17 Pulse Oximetry 95 11/22/24 17:17 Oxygen Delivery Room Air 11/22/24 14:47 <Brent Ramakrishna Soliman III, DO - Last Filed: 11/22/24 17:00> MDM - Arrhythmia/Palpitations MDM Narrative Medical decision making narrative: Pt in a fib with rvr. will get labs and tyrop and give cardizem bolus and drip and reassess. Pt rate down in 90's. mild chf on cxr. renal function similar to baseline. Discussed with Rena Altman and agrees to admit. <Brent Ramakrishna Soliman III, DO - Last Filed: 11/22/24 17:00> Differential Diagnosis Differential diagnosis: Likely palpitations, sinus tachycardia, artial fibrillation, artial flutter, ventricular premature beats and supraventricular tachycardia <Brent Ramakrishna Soliman III, DO - Last Filed: 11/22/24 17:00> Lab Data Result diagrams: 11/22/24 15:07 11/22/24 15:07 <Angelica Moe PA-C - Last Filed: 11/22/24 19:21> Labs: Lab Results 11/22/24 Range/Units 15:07 WBC 6.2 (4.5-10.0) K/mm3 RBC 2.78 L (4.6-6.20) M/mm3 Hgb 9.4 L (14.0-18.0) g/dL Hct 27.3 L (42.0-52.0) % MCV 98.2 (80-100) fl MCH 33.8 (26-34) pg MCHC 34.4 (32-36) g/dl RDW 13.0 (11.5-14.5) % Plt Count 154 (150-375) k/mm3 MPV 8.9 (7.4-10.4) fl Immature Gran % (Auto) 0.3 (0-0.5) % Neut % (Auto) 69.8 (45.5-73.1) % Lymph % (Auto) 14.8 L (18.3-44.2) % Republic % (Auto) 12.2 H (2.6-8.5) % Eos % (Auto) 2.1 (0-4.4) % Baso % (Auto) 0.8 (0.2-1.2) % Lymph # (Auto) 0.92 (0.9-3.2) K/mm3 Republic # (Auto) 0.8 H (0.1-0.6) K/mm3 Eos # (Auto) 0.1 (0-0.3) K/mm3 Baso # (Auto) 0.1 (0.0-0.1) K/mm3 Abs Immat Gran (auto) 0.02 (0.00-0.031) K/mm3 Absolute Neuts (auto) 4.3 (1.3-6.7) K/mm3 Absolute Nucleated RBC 0.000 (0.0-0.012) K/mm3 Nucleated RBC % 0.0 (0.0-0.2) % PT Pending INR Pending APTT Pending Sodium 135 L (137-145) mmol/L Potassium 4.1 (3.4-5.0) mmol/L Chloride 95 L (98-107) mmol/L Carbon Dioxide 34 H (22-30) mmol/L Anion Gap 6 (4-12) mmol/L BUN 23 H (9-20) mg/dL Creatinine 2.28 H (0.7-1.3) mg/dL Estim Creat Clear Calc 27 ml/min Estimated GFR 28 L (59 - ) Glucose 187 H (65-110) mg/dL Calcium 8.7 (8.4-10.2) mg/dL Total Bilirubin 0.5 (0.2-1.3) mg/dL AST 28 (17-59) U/L ALT 27 (6-50) U/L Alkaline Phosphatase 95 (38-126) U/L NT-Pro-B Natriuret Pep 72830 H (19.9-100) pg/mL Total Protein 7.1 (6.3-8.2) g/dL Albumin 4.0 (3.5-5.1) g/dL <Angelica Moe PA-C - Last Filed: 11/22/24 19:21> Lab Results 11/22/24 Range/Units 15:07 WBC 6.2 (4.5-10.0) K/mm3 RBC 2.78 L (4.6-6.20) M/mm3 Hgb 9.4 L (14.0-18.0) g/dL Hct 27.3 L (42.0-52.0) % MCV 98.2 (80-100) fl MCH 33.8 (26-34) pg MCHC 34.4 (32-36) g/dl RDW 13.0 (11.5-14.5) % Plt Count 154 (150-375) k/mm3 MPV 8.9 (7.4-10.4) fl Immature Gran % (Auto) 0.3 (0-0.5) % Neut % (Auto) 69.8 (45.5-73.1) % Lymph % (Auto) 14.8 L (18.3-44.2) % Republic % (Auto) 12.2 H (2.6-8.5) % Eos % (Auto) 2.1 (0-4.4) % Baso % (Auto) 0.8 (0.2-1.2) % Lymph # (Auto) 0.92 (0.9-3.2) K/mm3 Republic # (Auto) 0.8 H (0.1-0.6) K/mm3 Eos # (Auto) 0.1 (0-0.3) K/mm3 Baso # (Auto) 0.1 (0.0-0.1) K/mm3 Abs Immat Gran (auto) 0.02 (0.00-0.031) K/mm3 Absolute Neuts (auto) 4.3 (1.3-6.7) K/mm3 Absolute Nucleated RBC 0.000 (0.0-0.012) K/mm3 Nucleated RBC % 0.0 (0.0-0.2) % PT Pending INR Pending APTT Pending Sodium 135 L (137-145) mmol/L Potassium 4.1 (3.4-5.0) mmol/L Chloride 95 L (98-107) mmol/L Carbon Dioxide 34 H (22-30) mmol/L Anion Gap 6 (4-12) mmol/L BUN 23 H (9-20) mg/dL Creatinine 2.28 H (0.7-1.3) mg/dL Estim Creat Clear Calc 27 ml/min Estimated GFR 28 L (59 - ) Glucose 187 H (65-110) mg/dL Calcium 8.7 (8.4-10.2) mg/dL Total Bilirubin 0.5 (0.2-1.3) mg/dL AST 28 (17-59) U/L ALT 27 (6-50) U/L Alkaline Phosphatase 95 (38-126) U/L NT-Pro-B Natriuret Pep 17092 H (19.9-100) pg/mL Total Protein 7.1 (6.3-8.2) g/dL Albumin 4.0 (3.5-5.1) g/dL <Brent Ramakrishna Soliman III, DO - Last Filed: 11/22/24 17:00> ECG Data EKG #1: Attestation: I personally reviewed and interpreted this ECG as follows: <Brent Ramakrishna Soliman III, DO - Last Filed: 11/22/24 17:00> Interpretation: a fib with rvr rate [address] or t wave changes, low voltage <Brent Ramakrishna Soliman III, DO - Last Filed: 11/22/24 17:00> Critical Care Time Critical Care Time Critical Care Time: Yes <Brent Ramakrishna Soliman III, DO - Last Filed: 11/22/24 17:00> Total Critical Care Time: 35 <Brent Ramakrishna Soliman III, DO - Last Filed: 11/22/24 17:00> Discharge Plan Discharge Clinical Impression: Atrial fibrillation with rapid ventricular response CHF (congestive heart failure) Qualifiers: Heart failure type: unspecified Heart failure chronicity: unspecified Qualified Code(s): I50.9 - Heart failure, unspecified <Angelica Moe PA-C - Last Filed: 11/22/24 19:21> Patient Disposition: Still a Patient <SONNY Aguilar Last Filed: 11/22/24 19:21> Condition: Improved <SONNY Aguilar Last Filed: 11/22/24 19:21>
[2024-11-22 15:19] LABS: Hematocrit 27.3 % (42.0-52.0); Hemoglobin 9.4 g/dL (14.0-18.0); Immature Granulocyte Percent A 0.3 % (0-0.5); Lymphocytes Absolute Auto 0.92 K/mm3 (0.9-3.2); Mean Corpuscular HGB Conc 34.4 g/dl (32-36); Mean Corpuscular Hemoglobin 33.8 pg (26-34); Mean Corpuscular Volume 98.2 fl (80-100); Nucleated Red Blood Cells Absolute Auto 0.000 K/mm3 (0.0-0.012); Nucleated Red Blood Cells Perc 0.0 % (0.0-0.2); Platelet Count Result 154 k/mm3 (150-375); Red Blood Count 2.78 M/mm3 (4.6-6.20); White Blood Count 6.2 K/mm3 (4.5-10.0)
[2024-11-22 15:32] LABS: Alanine Aminotransferase 27 U/L (6-50); Albumin Level 4.0 g/dL (3.5-5.1); Alkaline Phosphatase 95 U/L (38-126); Anion Gap 6 mmol/L (4-12); Aspartate Amino Transferase 28 U/L (17-59); Bilirubin,Total 0.5 mg/dL (0.2-1.3); Blood Urea Nitrogen 23 mg/dL (9-20); Calcium 8.7 mg/dL (8.4-10.2); Carbon Dioxide 34 mmol/L (22-30); Chloride 95 mmol/L (98-107); Estimated CRCL calculation 27 ml/min; Estimated Glomerular Filt Rate 28; Glucose 187 mg/dL (65-110); Potassium 4.1 mmol/L (3.4-5.0); Sodium 135 mmol/L (137-145); Total Protein 7.1 g/dL (6.3-8.2)
[2024-11-22 15:40] LABS: NT Pro B Type Natriuretic Pept 17700 pg/mL (19.9-100)
[2024-11-22] MEDS: dilTIAZem 100 MG/100 ML 100 MG/100 ML BAG IV CONT (16:37)
--- OUTSIDE RECORDS SUMMARY | 2024-11-22 17:40 | XMS_ITS | Clinical Summary ---
Author Organization [facility] Address [address] [place] [address] Care Team Providers Care Payroll Clerk Name Role Phone Santi Roy MD Primary Care Provider [phone] Source Comments [facility],non-owned Affiliates and Associated Physician Practices is amultiple site organization consisting of ambulatory clinics and hospital sitesin [place], [place], [place] and [place]. This disclosure is being madepursuant to the Care Everywhere program and may not contain all information available regarding this patient. 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 Gender Identity Not on file Sexual Orientation [...] this topic Medical Devices Implanted Type Area Yarder Engineer Device Identifier Shelf Expiration Date Model / Serial / Lot Mesh Srg 6x3in Lg Pore Knit Mfl [facility] Rnd Implanted:Qty: 1 on 03/30/2021 by Santi Angelo MD at [facility] Left: [employer] 11/04/2025 [id number] / / [id number] Mesh Srg 6x3in Lg Pore Knit Mfl Jose Rnd Implanted:Qty: 1 on 03/30/2021 by Santi Angelo MD at [facility] Right: [employer] 11/04/2025 [id number] / / [id number] Insurance AETNA AETNA Care Teams Payroll Clerk Relationship Specialty Start Date End Date Santi Roy MD [address] [place] [address] PCP - General 12/18/19
--- OUTSIDE RECORDS SUMMARY | 2024-11-22 17:42 | XMS_ITS | Encounter Summary ---
Author Organization [facility] Address [address] [place] [address] Care Team Providers Care Physics Technical Officer Name Role Phone Santi Roy MD Primary Care Provider [phone] Encounter Details Date Type Department Care Team (Late st Contact Info) Description 10/28/2020 Telephone [facility] [address] [place] [address] Santi Angelo MD [address] OF [facility] [place] [address] Social History Tobacco Use Types Packs/Day Years Used Date Smoking Tobacco: Former Cigarettes 1.5 45 Smokeless Tobacco: Former Chew Alcohol Use Standard Drinks/Week Comments Not Currently 0 (1 standard drink = 0.6 oz pur e alcohol) 20yrs ago Sex and Gender Information Value Date Recorded Sex Assigned at Not on file 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
--- OUTSIDE RECORDS SUMMARY | 2024-11-22 17:42 | XMS_ITS | Encounter Summary ---
Author Organization [facility] Address [address] [place] [address] Care Team Providers Care Strip Stamp Straightener Name Role Phone Santi Roy MD Primary Care Provider [phone] Encounter Details Date Type Department Care Team (Late st Contact Info) Description 09/30/2020 Telephone [facility] [address] [place] [address] Santi Angelo MD [address] OF [facility] [place] [address] Social History Tobacco Use Types Packs/Day Years Used Date Smoking Tobacco: Former Cigarettes 1.5 45 Smokeless Tobacco: Former Chew Alcohol Use Standard Drinks/Week Comments Not Currently 0 (1 standard drink = 0.6 oz pur e alcohol) 20yrs ago Sex and Gender Information Value Date Recorded Sex Assigned at Not on file 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
--- OUTSIDE RECORDS SUMMARY | 2024-11-22 17:42 | XMS_ITS | Clinical Summary ---
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 Never 03/01/2024 Do you belong to any clubs o r organizations such as faith groups, unions, fraternal or athletic groups, or [...] any time in the past [address] [facility], were you homeless or living in a fdc (including now)? No 03/01/2024 Personal Safety Answer Date Recorded Have you ever been in or are you currently in a harmful physical or emotional relationship or is someone making you feel afraid or unsafe? 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 Male 1:08 PM MOSS PICKER Gender Identity Not on file Sexual Orientation Not on file Obstetrics History Last Filed Vital Signs Vital Sign Reading Time Taken Comments Blood Pressure 130/56 07/13/2024 10:21 AM CDT Pulse 78 07/13/2024 10:21 AM CDT Temperature 36.6 C (97.9 F) 03/02/2024 12:30 PM MOSS PICKER Respiratory Rate 18 03/02/2024 12:30 PM MOSS PICKER Oxygen Saturation 95% 07/13/2024 10:21 AM CDT [...] Completed 08/12/2022 Medical Devices Implanted Type Area Acoustic Intelligence Specialist Device Identifier Shelf Expiration Date Model / Serial / Lot Total Joint Bilateral: Knee Total Right: Shoulder [employer] Embosafe 15.5fr 24cm Basic 2 Lumen Kit Catheter [id number] - [id number] Implanted:Qty: 1 on 08/04/2023 by Harvinder Fernando MD at [facility] Real Time Content 06/06/2025 [id number] / / [id number] Procedures Procedure Name Priority Date/Time Associated Diagnosis Comments EGFR Routine 03/02/2024 2:55 AM MOSS PICKER HEMOGLOBIN A1C Routine 04/12/2019 4:10 AM MOSS PICKER LIPID PANEL STAT 04/12/2019 3:41 AM MOSS PICKER from Last 3 Months or Most Recently Relevant to Health Maintenance Results * (ABNORMAL) eGFR (03/02/2024 2:55 AM MOSS PICKER) eGFR 19(L) >=60 mL/min/1. 73 m2 Comment: [...] last reviewed 2020. Blood 03/02/2024 2:55 AM MOSS PICKER 03/02/2024 3:39 AM MOSS PICKER us Jenaro Le MD LAB BLOOD ORDERABLES Final Res ult [facility] [address] Department [place] [address] * (ABNORMAL) Hemoglobin A1c (04/12/2019 4:10 AM MOSS PICKER) Hgb A1C 7.1(H) 4.0 - 5.6 % [facility] Estimated Average Glucose 157 mg/dL [facility] Comment: The ADA recommends reporting an estimated Average Glucose (eAG) with all Hemoglobin A1c results using the equation derived from a study of 507 normal and diabetic adults. Minority populations were underrepresented and children were not included. (Diabetes Care 31:2825-7380, 2008). The eAG is not equivalent to a fasting glucose. Blood specimen (specimen) 04/12/2019 4:10 AM MOSS PICKER 04/12/2019 6:03 AM MOSS PICKER David VOSS LAB BLOOD ORDERABLES Final Result Performing Organization Address City/[facility]/ZIP Co de Phone Number [facility] Department [place] [address] * (ABNORMAL) Lipid panel (04/12/2019 3:41 AM MOSS PICKER) Cholesterol 78 30 - 199 mg/dL [facility] Comment: Interpretive Data Ages < or [...] on 2017. Triglycerides 61 <=149 mg/dL [facility] Comment: Interpretive Data Ages < [...] revised on 2017. HDL 29(L) >=40 mg/dL [facility] Comment: Interpretive Data Ages < or = [...] on 2017. LDL, calculated 37 <=129 mg/dL [facility] Comment: Interpretive Data Ages < or = [...] revised on 2017. Non-HDL Cholesterol 49 mg/dL [facility] Comment: Interpretive Data Ages < or = [...] revised on 2017. Chol/HDL ratio 3 [facility] Blood specimen (specimen) 04/12/2019 3:41 AM MOSS PICKER 04/12/2019 5:47 AM MOSS PICKER us Yvonne Matthew MD LAB BLOOD ORDERABLES F inal Result [facility] Department [place] [address] from Last 3 Months or Most Recently Relevant to Health Maintenance Insurance [address] [id number] [facility] MEDICARE PLUQ MEDICARE Member Subscriber Plan / Payer (Ef fective 2019-Present) Name:Leobardo Reyes Member ID:[id number] Relation to Subscriber:Self Name:Leobardo Reyes Subscriber ID:[id number] Payer ID:[id number] (NAIC) Type:AETNA MEDICARE Address: [id number] [place] [id number] [facility] MEDICARE ADVANTAGE [facility] MEDICARE ADVANTAGE Advance Directives For more information, please contact: [phone] * Full Code (Latest Code Status on File) Date Activated Date Inactivated Comments 02/29/2024 8:34 PM 03/02/2024 7:26 PM * Full Code Date Activated Date Inactivated Comments 04/12/2019 3:29 AM 04/20/2019 6:41 PM Care Teams Automatic Clipper And Stripper Relationship Specialty Start Date End Date Santi Roy MD [address] [place] [address] PCP - General Family Medicine 02/23/19 Itz Boyd MD [address] [facility] 1 [place] [address] Consulting Physician Nephrology 07/26/23 Joe Arce MD [address] [place] [address] Consulting Physician Cardiology 03/02/24
--- OUTSIDE RECORDS SUMMARY | 2024-11-22 17:42 | XMS_ITS | Encounter Summary ---
Author Organization [facility] Healthcare Address [address] [place] [address] Care Team Providers Care Residential Sales Rep Name Role Phone Santi Roy MD Primary Care Provider Itz Boyd MD Unavailable [phone] Joe Arce MD Unavailable Encounter Details Date Type Department Care Team (Late st Contact Info) Description 02/28/2024 Orders Only [facility] Health Information Management [address] [place] [address] Scanning, Provider Social History Tobacco Use Types Packs/Day Years Used Date Smoking Tobacco: Former Cigarettes 0.1 50 0 02/23/1942 - 02/24/1992 Smokeless Tobacco: Former Alcohol Use Standard Drinks/Week Comments Not Currently 0 (1 standard drink = 0.6 oz pur e alcohol) [facility] Utilities Answer Date Recorded In the past 12 months has [employer], gas, oil, or water company threatened to [...] often do you attend chur ch or gnosticist services? Never 03/01/2024 Do you belong to any clubs o r organizations such as gnosticism groups, unions, fraternal or athletic groups, or [...] time in the past 12 m [facility], were you homeless or living in a mcc (including now)? No 03/01/2024 Personal Safety Answer Date Recorded Have you ever been in or are you currently in a harmful physical or emotional relationship or is someone making you feel afraid or unsafe? 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 Male 1:08 PM SMALL ANIMAL VETERINARIAN Gender Identity Not on file Sexual Orientation [...] on filedocumented in this encounter Care Teams Residential Sales Rep Relationship Specialty Start Date End Date Santi Roy MD [address] [place] [address] PCP - General Family Medicine 02/23/19 Itz Boyd MD [address] [facility] 1 [place] [address] Consulting Physician Nephrology 07/26/23 Joe Arce MD [address] [place] [address] Consulting Physician Cardiology 03/02/24 documented as of this encounter
--- OUTSIDE RECORDS SUMMARY | 2024-11-22 17:42 | XMS_ITS | Encounter Summary ---
Author Organization [facility] Address [address] [facility] [place] [address] Care Team Providers Care Producer Arborist Manager Name Role Phone Santi Roy MD Primary Care Provider [phone] Encounter Details Date Type Department Care Team (Late st Contact Info) Description 09/29/2020 Telephone [facility] [address] [place] [address] Santi Angelo MD [address] OF [facility] [place] [address] Social History Tobacco Use Types Packs/Day Years Used Date Smoking Tobacco: Former Cigarettes 1.5 45 Smokeless Tobacco: Former Chew Alcohol Use Standard Drinks/Week Comments Not Currently 0 (1 standard drink = 0.6 oz pur e alcohol) 20yrs ago Sex and Gender Information Value Date Recorded Sex Assigned at Not on file 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
--- OUTSIDE RECORDS SUMMARY | 2024-11-22 17:42 | XMS_ITS | Encounter Summary ---
Author Organization [facility] Healthcare Address [address] [place] [address] Care Team Providers Care Route Delivery Service Driver Name Role Phone Santi Roy MD Primary Care Provider Itz Boyd MD Unavailable [phone] Joe Arce MD Unavailable Encounter Details Date Type Department Care Team (Late st Contact Info) Description 07/28/2023 Telephone 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
--- OUTSIDE RECORDS SUMMARY | 2024-11-22 17:42 | XMS_ITS | Encounter Summary ---
Author Organization [facility] Address [address] [facility] [place] [address] Care Team Providers Care Registered Nurse Behavioral Health Name Role Phone Santi Roy MD Primary Care Provider [phone] Encounter Details Date Type Department Care Team (Late st Contact Info) Description 03/17/2021 Telephone [facility] [address] [place] [address] Santi Angelo MD [address] OF [facility] [place] [address] Social History Tobacco Use Types Packs/Day Years Used Date Smoking Tobacco: Former Cigarettes 1.5 45 1 944 - 1989 Smokeless Tobacco: Former Chew Alcohol Use Standard Drinks/Week Comments Not Currently 0 (1 standard drink = 0.6 oz pur e alcohol) 20yrs ago Sex and Gender Information Value Date Recorded Sex Assigned at Not on file 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 No / Unsure 02/20/2021 12:39 PM GARMENT MANUFACTURER documented as of this encounter Plan of Treatment Not on file documented as of this encounter Visit Diagnoses Not on filedocumented in this encounter Care Teams Registered Nurse Behavioral Health Relationship Specialty Start Date End Date Santi Roy MD [address] [place] [address] PCP - General 12/18/19 documented as of this encounter
--- OUTSIDE RECORDS SUMMARY | 2024-11-22 17:42 | XMS_ITS | Encounter Summary ---
Author Organization [facility] Address [address] [facility] [place] [address] Care Team Providers Care Superintendent Meter Tests Name Role Phone Santi Roy MD Primary Care Provider [phone] Encounter Details Date Type Department Care Team (Late st Contact Info) Description 04/23/2021 Telephone [facility] [address] [place] [address] Santi Angelo MD [address] OF [facility] [place] [address] Social History Tobacco Use Types Packs/Day Years Used Date Smoking Tobacco: Former Cigarettes 1.5 45 1 944 - 1989 Smokeless Tobacco: Former Chew Alcohol Use Standard Drinks/Week Comments Not Currently 0 (1 standard drink = 0.6 oz pur e alcohol) 20yrs ago Sex and Gender Information Value Date Recorded Sex Assigned at Not on file 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
--- OUTSIDE RECORDS SUMMARY | 2024-11-22 17:42 | XMS_ITS | Encounter Summary ---
Author Organization [facility] Address [address] [facility] [place] [address] Care Team Providers Care Clerk Secretary Name Role Phone Santi Roy MD Primary Care Provider Encounter Details Date Type Department Care Team (Late st Contact Info) Description 05/15/2021 Telephone [facility] [address] [place] [address] Santi Angelo MD [address] OF [facility] [place] [address] Social History Tobacco Use Types Packs/Day Years Used Date Smoking Tobacco: Former Cigarettes 1.5 45 1 944 - 1989 Smokeless Tobacco: Former Chew Alcohol Use Standard Drinks/Week Comments Not Currently 0 (1 standard drink = 0.6 oz pur e alcohol) 20yrs ago Sex and Gender Information Value Date Recorded Sex Assigned at Not on file 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
--- OUTSIDE RECORDS SUMMARY | 2024-11-22 17:42 | XMS_ITS | Encounter Summary ---
Author Organization [facility] Healthcare Address [address] [place] [address] Care Team Providers Care Search Engine Optimization Specialist Name Role Phone Santi Roy MD Primary Care Provider Itz Boyd MD Unavailable [phone] Joe Arce MD Unavailable Encounter Details Date Type Department Care Team (Late st Contact Info) Description 03/05/2024 [facility] Post Discharge Follow up phone call [address] [address] Jana Sebastian, PAKO Social History Tobacco Use Types Packs/Day Years Used Date Smoking Tobacco: Former Cigarettes 0.1 50 0 [birth year]/1942 - 02/24/1992 Smokeless Tobacco: Former Alcohol Use Standard Drinks/Week Comments Not Currently 0 (1 standard drink = 0.6 oz pur e alcohol) [facility] Utilities Answer Date Recorded In the past 12 months has [employer], gas, oil, or water company threatened to [...] often do you attend chur ch or judaism services? Never 03/01/2024 Do you belong to any clubs o r organizations such as scientology groups, unions, fraternal or athletic groups, or [...] any time in the past 12 m [facility], were you homeless or living in a mcc (including now)? No 03/01/2024 Personal Safety Answer Date Recorded Have you ever been in or are you currently in a harmful physical or emotional relationship or is someone making you feel afraid or unsafe? 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 Gender Identity Not on file Sexual Orientation Not on file documented as of this encounter Plan of Treatment Not on file documented as of this encounter Visit Diagnoses Not on filedocumented in this encounter Care Teams Search Engine Optimization Specialist Relationship Specialty Start Date End Date Santi Roy MD [address] [place] [address] PCP - General Family Medicine 02/23/19 Itz Boyd MD [address] [facility] 1 [place] [address] Consulting Physician Nephrology 07/26/23 Joe Arce MD [address] [place] [address] Consulting Physician Cardiology 03/02/24 documented as of this encounter
--- OUTSIDE RECORDS SUMMARY | 2024-11-22 17:42 | XMS_ITS | Encounter Summary ---
Author Organization [facility] Address [address] [facility] [place] [address] Care Team Providers Care Early Childhood Associate Teacher Name Role Phone Santi Roy MD Primary Care Provider Encounter Details Date Type Department Care Team (Late st Contact Info) Description 03/04/2021 Telephone [facility] [address] [place] [address] Santi Angelo MD [address] [place] [address] Social History Tobacco Use Types Packs/Day Years Used Date Smoking Tobacco: Former Cigarettes 1.5 45 1 944 - 1989 Smokeless Tobacco: Former Chew Alcohol Use Standard Drinks/Week Comments Not Currently 0 (1 standard drink = 0.6 oz pur e alcohol) 20yrs ago Sex and Gender Information Value Date Recorded Sex Assigned at Not on file 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 No / Unsure 02/20/2021 12:39 PM VP OF TECHNOLOGY documented as of this encounter Plan of Treatment Not on file documented as of this encounter Visit Diagnoses Not on filedocumented in this encounter Care Teams Early Childhood Associate Teacher Relationship Specialty Start Date End Date Santi Roy MD [address] [place] [address] PCP - General 12/18/19 documented as of this encounter
--- OUTSIDE RECORDS SUMMARY | 2024-11-22 17:42 | XMS_ITS ---
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 Ordering Clinician Indication Dosage Frequency Signature (SIG) Comments Components Mircera 10-21 16:49: 24 Yes [id number] Number of Repeats Allowed: Frequency: FROY dosing, every four weeks calcitriol 10-09 16:29: 18 Yes [id number] Number of Repeats Allowed: Frequency: Three times a week Mircera 07-08 05:00: 00 Yes [id number] Number of Repeats Allowed: Frequency: FROY dosing, every four weeks Toprol XL 03-10 17:15: 20 Yes Number of Repeats Allowed: Frequency: One time a day dilTIAZem HCl ER 03-10 17:14: 36 Yes Number of Repeats Allowed: Frequency: One time a day Apixaban 03-10 17:13: 56 Yes Number of Repeats Allowed: Frequency: Two times a day ALPRAZolam 03-10 17:13: 33 Yes Number of Repeats Allowed: Frequency: Two times a day ONS [facility] 08-21 15:14: 42 Yes [id number] Number of Repeats Allowed: Frequency: Every Dialysis Treatment Venofer 08-18 16:36: 39 Yes [id number] Number of Repeats Allowed: Frequency: One time a weekDosesO rdered: Maintenanc e Dose 50 Milligram Route: Intravenou s heparin sodium, porcine 08-12 14:11: 57 Yes [id number] Number of Repeats Allowed: Frequency: Every Dialysis TreatmentD osesOrdere d: Post CVC Instillati on 2000 Units 1:1000 Units/mLRo tolowa dee-ni': Intracathe terDosesOr dered: Post CVC Instillati on 2100 Units 1:1000 Units/mLRo tolowa dee-ni': Intracathe ter Oxygen 08-03 17:57: 21 Yes [id number] Number of Repeats Allowed: Frequency: As needed ondansetron hydrochlori de 08-03 17:57: 10 Yes [id number] Number of Repeats Allowed: Frequency: Every 4 hours as needed Normal Saline Solution 0.9% NaCl 08-03 17:57: 00 Yes [id number] Number of Repeats Allowed: Frequency: Every hour as needed loperamide hydrochlori de 08-03 17:56: 31 Yes [id number] Number of Repeats Allowed: Frequency: Every 4 hours as needed diphenhydra mine hydrochlori de 08-03 17:55: 17 Yes [id number] Number of Repeats Allowed: Frequency: Every 4 hours as needed clonidine 08-03 17:55: 04 Yes [id number] Number of Repeats Allowed: Frequency: Every 4 hours as needed Antacid Extra Strength 08-03 17:54: 49 Yes [id number] Number of Repeats Allowed: Frequency: Every 4 hours as needed acetaminoph en 08-03 17:54: 31 Yes [id number] Number of Repeats Allowed: Frequency: Every 4 hours as needed Problems This patient has no known problems. Procedures Procedure Date / Time Performed Performing Clinician Cynthia ce Details Central Venous Catheter (CVC) 2023-08-02 05:00:00 Access Site Chest (Right) Access Use Start Date 2023-08-06 05:00:0 0 PD [id number] 05:00:00 Access Site Lower Quadrant (Left ) Access Use Start Date 2020-11-21 05:00:0 0 Access Use End Date 2023-06-03 05:00:00 DIALYSIS TREATMENT INFORMATION Conventional Hemodialysis Date Type Treatment Start Date Treatment End Date Pre-Treatment Vitals Post-Treatment Vitals Weight Gain BFR DFR Actual UF Dialysis Access Octob er 2024 In-Ce nter Hemod ialys is Treat ment 2024-11-22 T11:11:55. 000Z 2024-11-22 T14:43:55. 000Z BP Sitting (Pre-Dialysis) 141/56 mmHg BP Sitting (Post-D ialysis ) 106/ 60 mmHg Sitting Heart Rate Pre-Dialysis 122 BPM BP Standing (Post-Dialysis) 130/69 mmHg Temperature Pre-Dialysis 97.3 degF Sitting Heart Ra te Post-Dialysis 122 BPM Standing Heart Rate Post-Stephanie lysis 136 BPM Temperature Post-Dialysis 97 .8 degF November 20, 2024 In-Center Hemodialysis Treatment 1036-91-72Z50:01:38.000Z 8040-33-60R03:30:39.000Z BP Sitting (Pre-Dialysis) 163/65 mmHg BP Sitting (Post-Dialysis) 114/72 mmHg Concurrent Access: falseCentral Venous Catheter (CVC) Chest (Right) Arterial Sitting Heart Rate Pre-Dialysis 93 BPM Sitting H eart Rate Post-Dialysis 121 BPM Temperature Pre-Dialysis 97.2 degF Temperature Post -Dialysis 98.2 degF November 17, 2024 In-Center Hemodialysis Treatment 5824-73-19G48:01:50.000Z 5708-02-45V50:30:50.000Z BP Sitting (Pre-Dialysis) 147/60 mmHg BP Sitting (Post-Dialysis) 131/61 mmHg Concurrent Access: falseCentral Venous Catheter (CVC) Chest (Right) Arterial Sitting Heart Rate Pre-Dialysis 81 BPM BP Standing (Post-Dialysis) 132/58 mmHg Temperature Pre-Dialysis 98.2 degF Sitting Heart Ra te Post-Dialysis 75 BPM Standing Heart Rate Post-Stephanie lysis 75 BPM Temperature Post-Dialysis 98 .2 degF November 15, 2024 In-Center Hemodialysis Treatment 0154-43-79N46:56:00.000Z 4301-76-29K78:27:08.000Z BP Sitting (Pre-Dialysis) 157/67 mmHg BP Sitting (Post-Dialysis) 139/60 mmHg Concurrent Access: falseCentral Venous Catheter (CVC) Chest (Right) Arterial BP Standing (Pre-Dialysis) 161/66 mmHg BP Standing (P ost-Dialysis) 141/58 mmHg Sitting Heart Rate Pre-Dialysis 77 BPM Sitting Heart Rate Post-Dialysis 75 BPM Standing Heart Rate Pre-Dialysis 81 BPM Standing Heart Rate Post-Dialysis 75 BPM Temperature Pre-Dialysis 97.8 degF Temperature Post -Dialysis 97.6 degF November 13, 2024 In-Center Hemodialysis Treatment 0453-69-78P22:17:35.000Z 2029-82-30D72:49:35.000Z BP Sitting (Pre-Dialysis) 135/56 mmHg BP Sitting (Post-Dialysis) 130/57 mmHg Concurrent Access: falseCentral Venous Catheter (CVC) Chest (Right) Arterial BP Standing (Pre-Dialysis) 142/58 mmHg BP Standing (P ost-Dialysis) 129/60 mmHg Sitting Heart Rate Pre-Dialysis 79 BPM Sitting Heart Rate Post-Dialysis 74 BPM Standing Heart Rate Pre-Dialysis 80 BPM Standing Heart Rate Post-Dialysis 70 BPM Temperature Pre-Dialysis 97.6 degF Temperature Post -Dialysis 97.6 degF November 10, 2024 In-Center Hemodialysis Treatment 1602-71-30O07:01:46.000Z 4175-05-09Z07:32:46.000Z BP Sitting (Pre-Dialysis) 126/57 mmHg BP Sitting (Post-Dialysis) 107/56 mmHg Concurrent Access: falseCentral Venous Catheter (CVC) Chest (Right) Arterial Sitting Heart Rate Pre-Dialysis 66 BPM BP Standing (Post-Dialysis) 120/54 mmHg Temperature Pre-Dialysis 97.9 degF Sitting Heart Ra te Post-Dialysis 67 BPM Standing Heart Rate Post-Stephanie lysis 66 BPM Temperature Post-Dialysis 97 degF November 08, 2024 In-Center Hemodialysis Treatment 4909-15-30N00:01:13.000Z 0151-10-53N48:30:14.000Z BP Sitting (Pre-Dialysis) 140/70 mmHg BP Sitting (Post-Dialysis) 135/61 mmHg Concurrent Access: falseCentral Venous Catheter (CVC) Chest (Right) Arterial BP Standing (Pre-Dialysis) 151/69 mmHg BP Standing (P ost-Dialysis) 122/70 mmHg Sitting Heart Rate Pre-Dialysis 68 BPM Sitting Heart Rate Post-Dialysis 65 BPM Standing Heart Rate Pre-Dialysis 71 BPM Standing Heart Rate Post-Dialysis 66 BPM Temperature Pre-Dialysis 97.8 degF Temperature Post -Dialysis 97.2 degF November 06, 2024 In-Center Hemodialysis Treatment 6343-71-78I74:06:41.000Z 4554-04-17S17:37:41.000Z BP Sitting (Pre-Dialysis) 141/66 mmHg BP Sitting (Post-Dialysis) 125/56 mmHg Concurrent Access: falseCentral Venous Catheter (CVC) Chest (Right) Arterial BP Standing (Pre-Dialysis) 141/64 mmHg BP Standing (P ost-Dialysis) 124/53 mmHg Sitting Heart Rate Pre-Dialysis 73 BPM Sitting Heart Rate Post-Dialysis 69 BPM Standing Heart Rate Pre-Dialysis 75 BPM Standing Heart Rate Post-Dialysis 67 BPM Temperature Pre-Dialysis 98 degF Temperature Post -Dialysis 97.7 degF November 03, 2024 In-Center Hemodialysis Treatment 1136-89-79W25:06:52.000Z 0696-34-22R98:35:53.000Z BP Sitting (Pre-Dialysis) 143/65 mmHg BP Sitting (Post-Dialysis) 129/59 mmHg Concurrent Access: falseCentral Venous Catheter (CVC) Chest (Right) Arterial Sitting Heart Rate Pre-Dialysis 70 BPM Sitting H eart Rate Post-Dialysis 76 BPM Temperature Pre-Dialysis 97.1 degF Temperature Post -Dialysis 97.5 degF November 01, 2024 In-Center Hemodialysis Treatment 1163-26-10B81:14:20.000Z 1096-06-42Z17:45:20.000Z BP Sitting (Pre-Dialysis) 135/63 mmHg BP Sitting (Post-Dialysis) 122/57 mmHg Concurrent Access: falseCentral Venous Catheter (CVC) Chest (Right) Arterial Sitting Heart Rate Pre-Dialysis 74 BPM BP Standing (Post-Dialysis) 116/59 mmHg Temperature Pre-Dialysis 97.9 degF Sitting Heart Ra te Post-Dialysis 69 BPM Standing Heart Rate Post-Stephanie lysis 70 BPM Temperature Post-Dialysis 97 .9 degF October 30, 2024 In-Center Hemodialysis Treatment 8018-58-28Q96:00:00.000Z 0198-68-82C81:30:48.000Z BP Sitting (Pre-Dialysis) 131/59 mmHg BP Sitting (Post-Dialysis) 119/53 mmHg Concurrent Access: falseCentral Venous Catheter (CVC) Chest (Right) Arterial BP Standing (Pre-Dialysis) 147/64 mmHg BP Standing (P ost-Dialysis) 124/54 mmHg Sitting Heart Rate Pre-Dialysis 69 BPM Sitting Heart Rate Post-Dialysis 70 BPM Standing Heart Rate Pre-Dialysis 72 BPM Standing Heart Rate Post-Dialysis 73 BPM Temperature Pre-Dialysis 97.8 degF Temperature Post -Dialysis 97.7 degF October 27, 2024 In-Center Hemodialysis Treatment 7391-40-81E89:15:58.000Z 6717-78-47D44:46:59.000Z BP Sitting (Pre-Dialysis) 124/60 mmHg BP Sitting (Post-Dialysis) 129/55 mmHg Concurrent Access: falseCentral Venous Catheter (CVC) Chest (Right) Arterial Sitting Heart Rate Pre-Dialysis 79 BPM Sitting H eart Rate Post-Dialysis 74 BPM Temperature Pre-Dialysis 98.6 degF Temperature Post -Dialysis 97.9 degF October 25, 2024 In-Center Hemodialysis Treatment 6394-40-17E87:04:27.000Z 7824-60-37F62:35:26.000Z BP Sitting (Pre-Dialysis) 139/75 mmHg BP Sitting (Post-Dialysis) 122/59 mmHg Concurrent Access: falseCentral Venous Catheter (CVC) Chest (Right) Arterial Sitting Heart Rate Pre-Dialysis 75 BPM Sitting H eart Rate Post-Dialysis 74 BPM Temperature Pre-Dialysis 98 degF Temperature Post -Dialysis 97.7 degF October 23, 2024 In-Center Hemodialysis Treatment 0889-43-51B90:05:53.000Z 7946-04-68W78:37:54.000Z BP Sitting (Pre-Dialysis) 147/57 mmHg BP Sitting (Post-Dialysis) 140/66 mmHg Concurrent Access: falseCentral Venous Catheter (CVC) Chest (Right) Arterial BP Standing (Pre-Dialysis) 156/58 mmHg BP Standing (P ost-Dialysis) 144/57 mmHg Sitting Heart Rate Pre-Dialysis 73 BPM Sitting Heart Rate Post-Dialysis 70 BPM Standing Heart Rate Pre-Dialysis 78 BPM Standing Heart Rate Post-Dialysis 76 BPM Temperature Pre-Dialysis 98 degF Temperature Post -Dialysis 98 degF October 20, 2024 In-Center Hemodialysis Treatment 4390-59-00R30:10:05.000Z 3687-13-91O37:42:05.000Z BP Sitting (Pre-Dialysis) 131/59 mmHg BP Sitting (Post-Dialysis) 129/52 mmHg Concurrent Access: falseCentral Venous Catheter (CVC) Chest (Right) Arterial Sitting Heart Rate Pre-Dialysis 72 BPM Sitting H eart Rate Post-Dialysis 77 BPM Temperature Pre-Dialysis 97.2 degF Temperature Post -Dialysis 97.9 degF October 18, 2024 In-Center Hemodialysis Treatment 0603-93-79G32:20:32.000Z 4815-12-75N95:52:33.000Z BP Sitting (Pre-Dialysis) 157/66 mmHg BP Sitting (Post-Dialysis) 130/66 mmHg Concurrent Access: falseCentral Venous Catheter (CVC) Chest (Right) Arterial Sitting Heart Rate Pre-Dialysis 77 BPM BP Standing (Post-Dialysis) 146/65 mmHg Temperature Pre-Dialysis 97.8 degF Sitting Heart Ra te Post-Dialysis 73 BPM Standing Heart Rate Post-Stephanie lysis 70 BPM Temperature Post-Dialysis 97 degF October 16, 2024 In-Center Hemodialysis Treatment 0993-17-10Z39:11:16.000Z 5262-19-39U09:41:16.000Z BP Sitting (Pre-Dialysis) 139/61 mmHg BP Sitting (Post-Dialysis) 151/63 mmHg Concurrent Access: falseCentral Venous Catheter (CVC) Chest (Right) Arterial Sitting Heart Rate Pre-Dialysis 80 BPM BP Standing (Post-Dialysis) 147/64 mmHg Temperature Pre-Dialysis 98.6 degF Sitting Heart Ra te Post-Dialysis 68 BPM Standing Heart Rate Post-Stephanie lysis 69 BPM Temperature Post-Dialysis 98 degF October 13, 2024 In-Center Hemodialysis Treatment 3890-91-60Z19:09:02.000Z 3522-47-08Q62:39:02.000Z BP Sitting (Pre-Dialysis) 128/55 mmHg BP Sitting (Post-Dialysis) 129/58 mmHg Concurrent Access: falseCentral Venous Catheter (CVC) Chest (Right) Arterial Sitting Heart Rate Pre-Dialysis 63 BPM Sitting H eart Rate Post-Dialysis 70 BPM Temperature Pre-Dialysis 98 degF Temperature Post -Dialysis 97.9 degF October 11, 2024 In-Center Hemodialysis Treatment 5867-32-51B13:13:29.000Z 3990-28-08R71:41:30.000Z BP Sitting (Pre-Dialysis) 154/69 mmHg BP Sitting (Post-Dialysis) 129/51 mmHg Concurrent Access: falseCentral Venous Catheter (CVC) Chest (Right) Arterial Sitting Heart Rate Pre-Dialysis 81 BPM Sitting H eart Rate Post-Dialysis 65 BPM Temperature Pre-Dialysis 97.7 degF Temperature Post -Dialysis 97.5 degF October 09, 2024 In-Center Hemodialysis Treatment 1761-97-08C67:10:57.000Z 3538-24-05T72:41:57.000Z BP Sitting (Pre-Dialysis) 161/73 mmHg BP Sitting (Post-Dialysis) 144/66 mmHg Concurrent Access: falseCentral Venous Catheter (CVC) Chest (Right) Arterial Sitting Heart Rate Pre-Dialysis 81 BPM BP Standing (Post-Dialysis) 143/65 mmHg Temperature Pre-Dialysis 97.7 degF Sitting Heart Ra te Post-Dialysis 63 BPM Standing Heart Rate Post-Stephanie lysis 63 BPM Temperature Post-Dialysis 97 .8 degF October 06, 2024 In-Center Hemodialysis Treatment 4704-53-60A43:15:08.000Z 5525-89-37L09:46:08.000Z BP Sitting (Pre-Dialysis) 132/67 mmHg BP Sitting (Post-Dialysis) 128/55 mmHg Concurrent Access: falseCentral Venous Catheter (CVC) Chest (Right) Arterial Sitting Heart Rate Pre-Dialysis 77 BPM BP Standi ng (Post-Dialysis) 129/56 mmHg Temperature Pre-Dialysis 98 degF Sitting Heart Ra te Post-Dialysis 65 BPM Standing Heart Rate Post-Stephanie lysis 66 BPM Temperature Post-Dialysis 97 .8 degF October 04, 2024 In-Center Hemodialysis Treatment 3759-43-23H29:33:36.000Z 4976-22-36I19:05:36.000Z BP Sitting (Pre-Dialysis) 163/62 mmHg BP Sitting (Post-Dialysis) 141/59 mmHg Concurrent Access: falseCentral Venous Catheter (CVC) Chest (Right) Arterial Sitting Heart Rate Pre-Dialysis 69 BPM BP Standing (Post-Dialysis) 137/61 mmHg Temperature Pre-Dialysis 97.4 degF Sitting Heart Ra te Post-Dialysis 67 BPM Standing Heart Rate Post-Stephanie lysis 62 BPM Temperature Post-Dialysis 97 .7 degF October 02, 2024 In-Center Hemodialysis Treatment 3414-87-25O01:57:03.000Z 7071-89-70O33:28:04.000Z BP Sitting (Pre-Dialysis) 149/64 mmHg BP Sitting (Post-Dialysis) 133/55 mmHg Concurrent Access: falseCentral Venous Catheter (CVC) Chest (Right) Arterial Sitting Heart Rate Pre-Dialysis 60 BPM Sitting H eart Rate Post-Dialysis 63 BPM Temperature Pre-Dialysis 98.6 degF Temperature Post -Dialysis 98.5 degF September 29, 2024 In-Center Hemodialysis Treatment 4269-63-82J34:59:14.000Z 3129-06-72U90:31:15.000Z BP Sitting (Pre-Dialysis) 146/64 mmHg BP Sitting (Post-Dialysis) 132/49 mmHg Concurrent Access: falseCentral Venous Catheter (CVC) Chest (Right) Arterial Sitting Heart Rate Pre-Dialysis 67 BPM BP Standing (Post-Dialysis) 136/66 mmHg Temperature Pre-Dialysis 98.6 degF Sitting Heart Ra te Post-Dialysis 69 BPM Standing Heart Rate Post-Stephanie lysis 73 BPM Temperature Post-Dialysis 98 degF September 27, 2024 In-Center Hemodialysis Treatment 6704-06-64X41:56:42.000Z 6115-69-18V47:26:42.000Z BP Sitting (Pre-Dialysis) 151/69 mmHg BP Sitting (Post-Dialysis) 132/55 mmHg Concurrent Access: falseCentral Venous Catheter (CVC) Chest (Right) Arterial Sitting Heart Rate Pre-Dialysis 69 BPM BP Standing (Post-Dialysis) 137/62 mmHg Temperature Pre-Dialysis 98.1 degF Sitting Heart Ra te Post-Dialysis 66 BPM Standing Heart Rate Post-Stephanie lysis 65 BPM Temperature Post-Dialysis 97 .6 degF September 25, 2024 In-Center Hemodialysis Treatment 3669-82-21T11:01:26.000Z 8165-11-62U34:31:26.000Z BP Sitting (Pre-Dialysis) 141/65 mmHg BP Sitting (Post-Dialysis) 169/61 mmHg Concurrent Access: falseCentral Venous Catheter (CVC) Chest (Right) Arterial BP Standing (Pre-Dialysis) 139/60 mmHg BP Standing (P ost-Dialysis) 137/68 mmHg Sitting Heart Rate Pre-Dialysis 63 BPM Sitting Heart Rate Post-Dialysis 73 BPM Standing Heart Rate Pre-Dialysis 65 BPM Standing Heart Rate Post-Dialysis 65 BPM Temperature Pre-Dialysis 97.5 degF Temperature Post -Dialysis 97 degF September 22, 2024 In-Center Hemodialysis Treatment 1175-15-88J21:59:37.000Z 4405-56-56H90:30:37.000Z BP Sitting (Pre-Dialysis) 142/61 mmHg BP Sitting (Post-Dialysis) 135/57 mmHg Concurrent Access: falseCentral Venous Catheter (CVC) Chest (Right) Arterial Sitting Heart Rate Pre-Dialysis 74 BPM Sitting H eart Rate Post-Dialysis 68 BPM Temperature Pre-Dialysis 98.2 degF Temperature Post -Dialysis 97.6 degF September 20, 2024 In-Center Hemodialysis Treatment 2352-57-49P98:57:04.000Z 6076-68-49Z66:29:05.000Z BP Sitting (Pre-Dialysis) 137/70 mmHg BP Sitting (Post-Dialysis) 141/58 mmHg Concurrent Access: falseCentral Venous Catheter (CVC) Chest (Right) Arterial Sitting Heart Rate Pre-Dialysis 78 BPM BP Standing (Post-Dialysis) 133/58 mmHg Temperature Pre-Dialysis 97.7 degF Sitting Heart Ra te Post-Dialysis 71 BPM Standing Heart Rate Post-Stephanie lysis 77 BPM Temperature Post-Dialysis 98 .6 degF September 18, 2024 In-Center Hemodialysis Treatment 5461-13-66M33:53:32.000Z 0731-41-57X50:27:32.000Z BP Sitting (Pre-Dialysis) 151/61 mmHg BP Sitting (Post-Dialysis) 130/63 mmHg Concurrent Access: falseCentral Venous Catheter (CVC) Chest (Right) Arterial Sitting Heart Rate Pre-Dialysis 76 BPM Sitting H eart Rate Post-Dialysis 70 BPM Temperature Pre-Dialysis 98.6 degF Temperature Post -Dialysis 98.2 degF September 15, 2024 In-Center Hemodialysis Treatment 5746-20-38N40:00:43.000Z 5738-36-97T40:30:44.000Z BP Sitting (Pre-Dialysis) 152/67 mmHg BP Sitting (Post-Dialysis) 123/59 mmHg Concurrent Access: falseCentral Venous Catheter (CVC) Chest (Right) Arterial Sitting Heart Rate Pre-Dialysis 70 BPM Sitting H eart Rate Post-Dialysis 69 BPM Temperature Pre-Dialysis 98.2 degF Temperature Post -Dialysis 98.2 degF September 13, 2024 In-Center Hemodialysis Treatment 3488-25-21R52:10:11.000Z 0179-90-95G32:42:11.000Z BP Sitting (Pre-Dialysis) 127/56 mmHg BP Sitting (Post-Dialysis) 119/55 mmHg Concurrent Access: falseCentral Venous Catheter (CVC) Chest (Right) Arterial Sitting Heart Rate Pre-Dialysis 70 BPM Sitting H eart Rate Post-Dialysis 69 BPM Temperature Pre-Dialysis 97.6 degF Temperature Post -Dialysis 97.6 degF September 11, 2024 In-Center Hemodialysis Treatment 1840-84-06Z17:58:38.000Z 9186-33-60U19:28:39.000Z BP Sitting (Pre-Dialysis) 138/68 mmHg BP Sitting (Post-Dialysis) 145/61 mmHg Concurrent Access: falseCentral Venous Catheter (CVC) Chest (Right) Arterial BP Standing (Pre-Dialysis) 153/62 mmHg Sitti ng Heart Rate Post-Dialysis 74 BPM Sitting Heart Rate Pre-Dialysis 75 BPM Temperatu re Post-Dialysis 97.6 degF Standing Heart Rate Pre-Dialysis 70 BPM Temperature Pre-Dialysis 97.6 degF September 08, 2024 In-Center Hemodialysis Treatment 5746-67-91F16:58:00.000Z 8972-51-42W25:34:50.000Z BP Sitting (Pre-Dialysis) 139/62 mmHg BP Sitting (Post-Dialysis) 137/62 mmHg Concurrent Access: falseCentral Venous Catheter (CVC) Chest (Right) Arterial BP Standing (Pre-Dialysis) 152/66 mmHg Sitti ng Heart Rate Post-Dialysis 74 BPM Sitting Heart Rate Pre-Dialysis 73 BPM Temperatu re Post-Dialysis 97.6 degF Standing Heart Rate Pre-Dialysis 75 BPM Temperature Pre-Dialysis 97.8 degF September 06, 2024 In-Center Hemodialysis Treatment 6672-66-93E58:56:37.000Z 3655-11-08U10:31:37.000Z BP Sitting (Pre-Dialysis) 159/66 mmHg BP Sitting (Post-Dialysis) 141/72 mmHg Concurrent Access: falseCentral Venous Catheter (CVC) Chest (Right) Arterial Sitting Heart Rate Pre-Dialysis 87 BPM Sitting H eart Rate Post-Dialysis 86 BPM Temperature Pre-Dialysis 97.3 degF Temperature Post -Dialysis 97.5 degF September 04, 2024 In-Center Hemodialysis Treatment 7488-54-63D42:00:04.000Z 5271-01-95T32:31:05.000Z BP Sitting (Pre-Dialysis) 130/56 mmHg BP Sitting (Post-Dialysis) 135/64 mmHg Concurrent Access: falseCentral Venous Catheter (CVC) Chest (Right) Arterial BP Standing (Pre-Dialysis) 127/58 mmHg Sitti ng Heart Rate Post-Dialysis 74 BPM Sitting Heart Rate Pre-Dialysis 69 BPM Temperatu re Post-Dialysis 97.6 degF Standing Heart Rate Pre-Dialysis 70 BPM Temperature Pre-Dialysis 98 degF September 01, 2024 In-Center Hemodialysis Treatment 2977-82-91N93:08:16.000Z 1245-33-91Y37:30:16.000Z BP Sitting (Pre-Dialysis) 129/51 mmHg BP Sitting (Post-Dialysis) 127/54 mmHg Concurrent Access: falseCentral Venous Catheter (CVC) Chest (Right) Arterial Sitting Heart Rate Pre-Dialysis 65 BPM Sitting H eart Rate Post-Dialysis 71 BPM Temperature Pre-Dialysis 98 degF Temperature Post -Dialysis 98.2 degF August 30, 2024 In-Center Hemodialysis Treatment 5938-22-53M18:05:00.000Z 8858-68-82P41:36:43.000Z BP Sitting (Pre-Dialysis) 153/65 mmHg BP Sitting (Post-Dialysis) 129/56 mmHg Concurrent Access: falseCentral Venous Catheter (CVC) Chest (Right) Arterial Sitting Heart Rate Pre-Dialysis 70 BPM Sitting H eart Rate Post-Dialysis 67 BPM Temperature Pre-Dialysis 97.5 degF Temperature Post -Dialysis 97.6 degF August 28, 2024 In-Center Hemodialysis Treatment 1764-50-90S47:01:17.000Z 0054-75-43Z58:23:17.000Z BP Sitting (Pre-Dialysis) 138/64 mmHg BP Sitting (Post-Dialysis) 149/65 mmHg Concurrent Access: falseCentral Venous Catheter (CVC) Chest (Right) Arterial BP Standing (Pre-Dialysis) 144/71 mmHg Sitti ng Heart Rate Post-Dialysis 83 BPM Sitting Heart Rate Pre-Dialysis 71 BPM Temperatu re Post-Dialysis 97.5 degF Standing Heart Rate Pre-Dialysis 80 BPM Temperature Pre-Dialysis 98 degF August 25, 2024 In-Center Hemodialysis Treatment 0506-68-44L25:03:28.000Z 7372-01-03C54:34:29.000Z BP Sitting (Pre-Dialysis) 145/60 mmHg BP Sitting (Post-Dialysis) 125/56 mmHg Concurrent Access: falseCentral Venous Catheter (CVC) Chest (Right) Arterial BP Standing (Pre-Dialysis) 137/62 mmHg BP Standing (P ost-Dialysis) 121/55 mmHg Sitting Heart Rate Pre-Dialysis 73 BPM Sitting Heart Rate Post-Dialysis 87 BPM Standing Heart Rate Pre-Dialysis 70 BPM Standing Heart Rate Post-Dialysis 69 BPM Temperature Pre-Dialysis 97.6 degF Temperature Post -Dialysis 97.7 degF August 23, 2024 In-Center Hemodialysis Treatment 5614-46-58K96:02:56.000Z 1253-74-70M32:32:56.000Z BP Sitting (Pre-Dialysis) 148/62 mmHg BP Sitting (Post-Dialysis) 116/52 mmHg Concurrent Access: falseCentral Venous Catheter (CVC) Chest (Right) Arterial Sitting Heart Rate Pre-Dialysis 79 BPM Sitting H eart Rate Post-Dialysis 69 BPM Temperature Pre-Dialysis 97.6 degF Temperature Post -Dialysis 97.7 degF August 21, 2024 In-Center Hemodialysis Treatment 1003-89-75D31:01:35.000Z 9297-28-87Q69:30:34.000Z BP Sitting (Pre-Dialysis) 143/63 mmHg BP Sitting (Post-Dialysis) 125/53 mmHg Concurrent Access: falseCentral Venous Catheter (CVC) Chest (Right) Arterial BP Standing (Pre-Dialysis) 152/64 mmHg BP Standing (P ost-Dialysis) 117/54 mmHg Sitting Heart Rate Pre-Dialysis 80 BPM Sitting Heart Rate Post-Dialysis 71 BPM Standing Heart Rate Pre-Dialysis 79 BPM Standing Heart Rate Post-Dialysis 69 BPM Temperature Pre-Dialysis 97.8 degF Temperature Post -Dialysis 97.7 degF August 18, 2024 In-Center Hemodialysis Treatment 8224-98-71M31:08:45.000Z 5370-61-32C82:39:45.000Z BP Sitting (Pre-Dialysis) 140/68 mmHg BP Sitting (Post-Dialysis) 127/56 mmHg Concurrent Access: falseCentral Venous Catheter (CVC) Chest (Right) Arterial Sitting Heart Rate Pre-Dialysis 62 BPM BP Standi ng (Post-Dialysis) 128/55 mmHg Temperature Pre-Dialysis 98 degF Sitting Heart Ra te Post-Dialysis 73 BPM Standing Heart Rate Post-Stephanie lysis 70 BPM Temperature Post-Dialysis 97 .2 degF August 16, 2024 In-Center Hemodialysis Treatment 6560-04-37W09:00:00.000Z 1038-08-45Y87:32:13.000Z BP Sitting (Pre-Dialysis) 151/65 mmHg BP Sitting (Post-Dialysis) 147/63 mmHg Concurrent Access: falseCentral Venous Catheter (CVC) Chest (Right) Arterial BP Standing (Pre-Dialysis) 163/93 mmHg Sitti ng Heart Rate Post-Dialysis 82 BPM Sitting Heart Rate Pre-Dialysis 79 BPM Temperatu re Post-Dialysis 97.2 degF Standing Heart Rate Pre-Dialysis 84 BPM Temperature Pre-Dialysis 97.9 degF August 14, 2024 In-Center Hemodialysis Treatment 1159-39-51X41:02:40.000Z 9536-47-70M35:36:41.000Z BP Sitting (Pre-Dialysis) 147/61 mmHg BP Sitting (Post-Dialysis) 127/57 mmHg Concurrent Access: falseCentral Venous Catheter (CVC) Chest (Right) Arterial Sitting Heart Rate Pre-Dialysis 77 BPM Sitting H eart Rate Post-Dialysis 74 BPM Temperature Pre-Dialysis 97.8 degF Temperature Post -Dialysis 97.7 degF August 11, 2024 In-Center Hemodialysis Treatment 4267-03-51G52:08:51.000Z 5636-71-95A98:36:52.000Z BP Sitting (Pre-Dialysis) 144/62 mmHg BP Sitting (Post-Dialysis) 131/57 mmHg Concurrent Access: falseCentral Venous Catheter (CVC) Chest (Right) Arterial Sitting Heart Rate Pre-Dialysis 73 BPM Sitting H eart Rate Post-Dialysis 83 BPM Temperature Pre-Dialysis 97.6 degF Temperature Post -Dialysis 97.9 degF August 09, 2024 In-Center Hemodialysis Treatment [id number]:06:19.000Z 6221-56-48Z82:37:19.000Z BP Sitting (Pre-Dialysis) 129/55 mmHg BP Sitting (Post-Dialysis) 125/52 mmHg Concurrent Access: falseCentral Venous Catheter (CVC) Chest (Right) Arterial BP Standing (Pre-Dialysis) 128/60 mmHg Sitting Heart Rate Post-Dialysis 75 BPM Sitting Heart Rate Pre-Dialysis 70 BPM Temperatu re Post-Dialysis 98 degF Standing Heart Rate Pre-Dialysis 78 BPM Temperature Pre-Dialysis 97.8 degF August 07, 2024 In-Center Hemodialysis Treatment 3590-47-26N24:02:46.000Z 8446-08-03H44:33:47.000Z BP Sitting (Pre-Dialysis) 153/59 mmHg BP Sitting (Post-Dialysis) 127/56 mmHg Concurrent Access: falseCentral Venous Catheter (CVC) Chest (Right) Arterial Sitting Heart Rate Pre-Dialysis 75 BPM Sitting H eart Rate Post-Dialysis 68 BPM Temperature Pre-Dialysis 97.5 degF Temperature Post -Dialysis 97.5 degF August 04, 2024 In-Center Hemodialysis Treatment [id number]:14:14.000Z 4092-71-71T39:43:15.000Z BP Sitting (Pre-Dialysis) 130/61 mmHg BP Sitting (Post-Dialysis) 144/64 mmHg Concurrent Access: falseCentral Venous Catheter (CVC) Chest (Right) Arterial Sitting Heart Rate Pre-Dialysis 76 BPM Sitting H eart Rate Post-Dialysis 75 BPM Temperature Pre-Dialysis 97.4 degF Temperature Post -Dialysis 97.6 degF August 02, 2024 In-Center Hemodialysis Treatment [id number]:06:42.000Z 8524-15-79Z21:30:42.000Z BP Sitting (Pre-Dialysis) 132/62 mmHg BP Sitting (Post-Dialysis) 135/65 mmHg Concurrent Access: falseCentral Venous Catheter (CVC) Chest (Right) Arterial BP Standing (Pre-Dialysis) 151/71 mmHg BP Standing (P ost-Dialysis) 138/59 mmHg Sitting Heart Rate Pre-Dialysis 70 BPM Sitting Heart Rate Post-Dialysis 79 BPM Standing Heart Rate Pre-Dialysis 73 BPM Standing Heart Rate Post-Dialysis 75 BPM Temperature Pre-Dialysis 97.8 degF Temperature Post -Dialysis 97.2 degF July 31, 2024 In-Center Hemodialysis Treatment 3689-03-89Z89:02:00.000Z 4177-72-90H73:35:36.000Z BP Sitting (Pre-Dialysis) 159/60 mmHg BP Sitting (Post-Dialysis) 158/48 mmHg Concurrent Access: falseCentral Venous Catheter (CVC) Chest (Right) Arterial BP Standing (Pre-Dialysis) 172/68 mmHg BP Standing (P ost-Dialysis) 140/35 mmHg Sitting Heart Rate Pre-Dialysis 73 BPM Sitting Heart Rate Post-Dialysis 73 BPM Standing Heart Rate Pre-Dialysis 74 BPM Standing Heart Rate Post-Dialysis 75 BPM Temperature Pre-Dialysis 97.8 degF Temperature Post -Dialysis 97.2 degF July 28, 2024 In-Center Hemodialysis Treatment 4838-28-97A90:01:47.000Z 8426-83-10A14:00:48.000Z BP Sitting (Pre-Dialysis) 147/67 mmHg BP Sitting (Post-Dialysis) 126/59 mmHg Concurrent Access: falseCentral Venous Catheter (CVC) Chest (Right) Arterial BP Standing (Pre-Dialysis) 160/67 mmHg BP Standing (P ost-Dialysis) 134/60 mmHg Sitting Heart Rate Pre-Dialysis 77 BPM Sitting Heart Rate Post-Dialysis 73 BPM Standing Heart Rate Pre-Dialysis 80 BPM Standing Heart Rate Post-Dialysis 79 BPM Temperature Pre-Dialysis 97.8 degF July 26, 2024 In-Center Hemodialysis Treatment [id number]:14:00.000Z 1782-74-44W26:45:15.000Z BP Sitting (Pre-Dialysis) 146/69 mmHg BP Sitting (Post-Dialysis) 128/61 mmHg Concurrent Access: falseCentral Venous Catheter (CVC) Chest (Right) Arterial Sitting Heart Rate Pre-Dialysis 73 BPM Sitting H eart Rate Post-Dialysis 71 BPM Temperature Pre-Dialysis 98.1 degF Temperature Post -Dialysis 97.6 degF July 24, 2024 In-Center Hemodialysis Treatment 5378-44-01R85:12:43.000Z 0382-88-51O37:43:43.000Z BP Sitting (Pre-Dialysis) 135/53 mmHg BP Sitting (Post-Dialysis) 121/55 mmHg Concurrent Access: falseCentral Venous Catheter (CVC) Chest (Right) Arterial Sitting Heart Rate Pre-Dialysis 69 BPM BP Standing (Post-Dialysis) 124/54 mmHg Temperature Pre-Dialysis 97.8 degF Sitting Heart Ra te Post-Dialysis 71 BPM Standing Heart Rate Post-Stephanie lysis 72 BPM Temperature Post-Dialysis 98 degF July 21, 2024 In-Center Hemodialysis Treatment [id number]:23:31.000Z 5866-09-48X33:55:50.000Z BP Sitting (Pre-Dialysis) 81/42 mmHg BP Sitting (Post-Dialysis) 149/66 mmHg Concurrent Access: falseCentral Venous Catheter (CVC) Chest (Right) Arterial Sitting Heart Rate Pre-Dialysis 84 BPM BP Standing (Post-Dialysis) 130/69 mmHg Temperature Pre-Dialysis 97.9 degF Sitting Heart Ra te Post-Dialysis 73 BPM Standing Heart Rate Post-Stephanie lysis 75 BPM July 19, 2024 In-Center Hemodialysis Treatment [id number]:05:10.000Z 0301-27-89N97:34:11.000Z BP Sitting (Pre-Dialysis) 126/52 mmHg BP Sitting (Post-Dialysis) 126/58 mmHg Concurrent Access: falseCentral Venous Catheter (CVC) Chest (Right) Arterial Sitting Heart Rate Pre-Dialysis 75 BPM Sitting H eart Rate Post-Dialysis 76 BPM Temperature Pre-Dialysis 98.2 degF Temperature Post -Dialysis 97.3 degF July 17, 2024 In-Center Hemodialysis Treatment 0608-57-08X36:05:00.000Z 6518-68-90E25:30:06.000Z BP Sitting (Pre-Dialysis) 133/56 mmHg BP Sitting (Post-Dialysis) 151/67 mmHg Concurrent Access: falseCentral Venous Catheter (CVC) Chest (Right) Arterial BP Standing (Pre-Dialysis) 144/52 mmHg BP Standing (P ost-Dialysis) 140/65 mmHg Sitting Heart Rate Pre-Dialysis 68 BPM Sitting Heart Rate Post-Dialysis 77 BPM Standing Heart Rate Pre-Dialysis 70 BPM Standing Heart Rate Post-Dialysis 77 BPM Temperature Pre-Dialysis 97.3 degF July 14, 2024 In-Center Hemodialysis Treatment 7026-72-51B47:07:27.000Z 9682-74-62B55:35:27.000Z BP Sitting (Pre-Dialysis) 123/54 mmHg BP Sitting (Post-Dialysis) 127/60 mmHg Concurrent Access: falseCentral Venous Catheter (CVC) Chest (Right) Arterial Sitting Heart Rate Pre-Dialysis 68 BPM BP Standing (Post-Dialysis) 121/55 mmHg Temperature Pre-Dialysis 97.5 degF Sitting Heart Ra te Post-Dialysis 71 BPM Standing Heart Rate Post-Stephanie lysis 70 BPM Temperature Post-Dialysis 97 .7 degF July 12, 2024 In-Center Hemodialysis Treatment [id number]:10:55.000Z 2586-48-00A40:45:18.000Z BP Sitting (Pre-Dialysis) 126/57 mmHg BP Sitting (Post-Dialysis) 132/58 mmHg Concurrent Access: falseCentral Venous Catheter (CVC) Chest (Right) Arterial BP Standing (Pre-Dialysis) 144/66 mmHg Sitti ng Heart Rate Post-Dialysis 72 BPM Sitting Heart Rate Pre-Dialysis 72 BPM Temperatu re Post-Dialysis 98.2 degF Standing Heart Rate Pre-Dialysis 77 BPM Temperature Pre-Dialysis 97.7 degF July 10, 2024 In-Center Hemodialysis Treatment [id number]:23:22.000Z 8319-80-77G99:12:23.000Z BP Sitting (Pre-Dialysis) 127/60 mmHg BP Sitting (Post-Dialysis) 136/63 mmHg Concurrent Access: falseCentral Venous Catheter (CVC) Chest (Right) Arterial Sitting Heart Rate Pre-Dialysis 70 BPM BP Standing (Post-Dialysis) 133/53 mmHg Temperature Pre-Dialysis 98.2 degF Sitting Heart Ra te Post-Dialysis 69 BPM Standing Heart Rate Post-Stephanie lysis 66 BPM July 07, 2024 In-Center Hemodialysis Treatment 9629-25-47C36:18:48.000Z 4195-56-18R23:51:49.000Z BP Sitting (Pre-Dialysis) 155/54 mmHg BP Sitting (Post-Dialysis) 137/54 mmHg Concurrent Access: falseCentral Venous Catheter (CVC) Chest (Right) Arterial Sitting Heart Rate Pre-Dialysis 78 BPM BP Standi ng (Post-Dialysis) 126/61 mmHg Temperature Pre-Dialysis 98 degF Sitting Heart Ra te Post-Dialysis 71 BPM Standing Heart Rate Post-Stephanie lysis 73 BPM Temperature Post-Dialysis 97 .2 degF July 05, 2024 In-Center Hemodialysis Treatment [id number]:12:16.000Z 5418-15-20N51:35:16.000Z BP Sitting (Pre-Dialysis) 142/59 mmHg BP Sitting (Post-Dialysis) 119/69 mmHg Concurrent Access: falseCentral Venous Catheter (CVC) Chest (Right) Arterial Sitting Heart Rate Pre-Dialysis 78 BPM BP Standing (Post-Dialysis) 104/62 mmHg Temperature Pre-Dialysis 97.4 degF Sitting Heart Ra te Post-Dialysis 57 BPM Standing Heart Rate Post-Stephanie lysis 68 BPM Temperature Post-Dialysis 97 .2 degF July 03, 2024 In-Center Hemodialysis Treatment [id number]:21:44.000Z 6874-92-92W99:51:00.000Z BP Sitting (Pre-Dialysis) 121/65 mmHg BP Sitting (Post-Dialysis) 156/83 mmHg Concurrent Access: falseCentral Venous Catheter (CVC) Chest (Right) Arterial BP Standing (Pre-Dialysis) 125/45 mmHg Sitti ng Heart Rate Post-Dialysis 78 BPM Sitting Heart Rate Pre-Dialysis 70 BPM Temperatu re Post-Dialysis 97.7 degF Standing Heart Rate Pre-Dialysis 68 BPM Temperature Pre-Dialysis 97.8 degF June 30, 2024 In-Center Hemodialysis Treatment 0225-45-44R07:06:55.000Z 3073-86-73T75:39:55.000Z BP Sitting (Pre-Dialysis) 107/56 mmHg BP Sitting (Post-Dialysis) 107/56 mmHg Concurrent Access: falseCentral Venous Catheter (CVC) Chest (Right) Arterial BP Standing (Pre-Dialysis) 156/65 mmHg Sitting Heart Rate Post-Dialysis 71 BPM Sitting Heart Rate Pre-Dialysis 71 BPM Temperatu re Post-Dialysis 98 degF Standing Heart Rate Pre-Dialysis 88 BPM Temperature Pre-Dialysis 97.6 degF June 28, 2024 In-Center Hemodialysis Treatment 9802-50-33P52:12:22.000Z 5165-12-08X35:47:23.000Z BP Sitting (Pre-Dialysis) 135/63 mmHg BP Sitting (Post-Dialysis) 131/58 mmHg Concurrent Access: falseCentral Venous Catheter (CVC) Chest (Right) Arterial Sitting Heart Rate Pre-Dialysis 69 BPM Sitting H eart Rate Post-Dialysis 69 BPM Temperature Pre-Dialysis 97.3 degF Temperature Post -Dialysis 98 degF June 26, 2024 In-Center Hemodialysis Treatment 7828-73-17Q33:23:50.000Z 3032-42-20S61:49:50.000Z BP Sitting (Pre-Dialysis) 142/73 mmHg BP Sitting (Post-Dialysis) 123/59 mmHg Concurrent Access: falseCentral Venous Catheter (CVC) Chest (Right) Arterial Sitting Heart Rate Pre-Dialysis 79 BPM Sitting H eart Rate Post-Dialysis 72 BPM Temperature Pre-Dialysis 97.8 degF June 21, 2024 In-Center Hemodialysis Treatment 4580-40-25M60:21:02.000Z 5089-45-49P42:56:02.000Z BP Sitting (Pre-Dialysis) 142/61 mmHg BP Sitting (Post-Dialysis) 141/43 mmHg Concurrent Access: falseCentral Venous Catheter (CVC) Chest (Right) Arterial Sitting Heart Rate Pre-Dialysis 79 BPM Sitting H eart Rate Post-Dialysis 76 BPM Temperature Pre-Dialysis 98 degF Temperature Post -Dialysis 98 degF June 19, 2024 In-Center Hemodialysis Treatment 8064-65-85B89:09:27.000Z 2314-42-79P27:40:27.000Z BP Sitting (Pre-Dialysis) 139/70 mmHg BP Sitting (Post-Dialysis) 138/66 mmHg Concurrent Access: falseCentral Venous Catheter (CVC) Chest (Right) Arterial BP Standing (Pre-Dialysis) 151/56 mmHg BP Standing (P ost-Dialysis) 151/68 mmHg Sitting Heart Rate Pre-Dialysis 79 BPM Sitting Heart Rate Post-Dialysis 71 BPM Standing Heart Rate Pre-Dialysis 84 BPM Standing Heart Rate Post-Dialysis 56 BPM Temperature Pre-Dialysis 97.8 degF Temperature Post -Dialysis 97.8 degF June 16, 2024 In-Center Hemodialysis Treatment 8698-68-04E82:14:39.000Z 8794-93-95X71:36:00.000Z BP Sitting (Pre-Dialysis) 152/66 mmHg BP Sitting (Post-Dialysis) 121/55 mmHg Concurrent Access: falseCentral Venous Catheter (CVC) Chest (Right) Arterial BP Standing (Pre-Dialysis) 136/78 mmHg BP Standing (P ost-Dialysis) 121/57 mmHg Sitting Heart Rate Pre-Dialysis 75 BPM Sitting Heart Rate Post-Dialysis 68 BPM Standing Heart Rate Pre-Dialysis 76 BPM Standing Heart Rate Post-Dialysis 71 BPM Temperature Pre-Dialysis 97.8 degF Temperature Post -Dialysis 97.7 degF June 14, 2024 In-Center Hemodialysis Treatment 5457-88-43U17:12:00.000Z 7626-39-51Q72:47:19.000Z BP Sitting (Pre-Dialysis) 175/64 mmHg BP Sitting (Post-Dialysis) 158/63 mmHg Concurrent Access: falseCentral Venous Catheter (CVC) Chest (Right) Arterial BP Standing (Pre-Dialysis) 122/102 mmHg Sitti ng Heart Rate Post-Dialysis 77 BPM Sitting Heart Rate Pre-Dialysis 79 BPM Temperatu re Post-Dialysis 97.8 degF Standing Heart Rate Pre-Dialysis 86 BPM Temperature Pre-Dialysis 97.7 degF June 12, 2024 In-Center Hemodialysis Treatment 5584-64-44D46:19:19.000Z 3596-88-78I08:50:19.000Z BP Sitting (Pre-Dialysis) 140/59 mmHg BP Sitting (Post-Dialysis) 119/63 mmHg Concurrent Access: falseCentral Venous Catheter (CVC) Chest (Right) Arterial BP Standing (Pre-Dialysis) 141/53 mmHg Sitti ng Heart Rate Post-Dialysis 75 BPM Sitting Heart Rate Pre-Dialysis 69 BPM Temperatu re Post-Dialysis 97.2 degF Standing Heart Rate Pre-Dialysis 87 BPM Temperature Pre-Dialysis 97.5 degF 2024 In-Center Hemodialysis Treatment 8432-98-19F02:30:32.000Z 2663-66-82S93:02:33.000Z BP Sitting (Pre-Dialysis) 147/52 mmHg BP Sitting (Post-Dialysis) 127/60 mmHg Concurrent Access: falseCentral Venous Catheter (CVC) Chest (Right) Arterial Sitting Heart Rate Pre-Dialysis 68 BPM BP Standing (Post-Dialysis) 141/59 mmHg Temperature Pre-Dialysis 97.6 degF Sitting Heart Ra te Post-Dialysis 73 BPM Standing Heart Rate Post-Stephanie lysis 67 BPM Temperature Post-Dialysis 98 .2 degF June 07, 2024 In-Center Hemodialysis Treatment [id number]:21:57.000Z 2821-29-32K23:57:57.000Z BP Sitting (Pre-Dialysis) 143/70 mmHg BP Sitting (Post-Dialysis) 145/75 mmHg Concurrent Access: falseCentral Venous Catheter (CVC) Chest (Right) Arterial BP Standing (Pre-Dialysis) 157/73 mmHg BP Standing (P ost-Dialysis) 157/72 mmHg Sitting Heart Rate Pre-Dialysis 67 BPM Sitting Heart Rate Post-Dialysis 70 BPM Standing Heart Rate Pre-Dialysis 70 BPM Standing Heart Rate Post-Dialysis 69 BPM Temperature Pre-Dialysis 97.8 degF Temperature Post -Dialysis 97.6 degF June 05, 2024 In-Center Hemodialysis Treatment 1218-00-99K70:25:24.000Z 3362-01-53Z42:54:25.000Z BP Sitting (Pre-Dialysis) 147/70 mmHg BP Sitting (Post-Dialysis) 133/66 mmHg Concurrent Access: falseCentral Venous Catheter (CVC) Chest (Right) Arterial Sitting Heart Rate Pre-Dialysis 72 BPM Sitting H eart Rate Post-Dialysis 68 BPM Temperature Pre-Dialysis 97.3 degF Temperature Post -Dialysis 98 degF June 02, 2024 In-Center Hemodialysis Treatment 6449-20-43Z33:48:36.000Z 3066-54-94O28:47:36.000Z BP Sitting (Pre-Dialysis) 162/69 mmHg BP Sitting (Post-Dialysis) 143/63 mmHg Concurrent Access: falseCentral Venous Catheter (CVC) Chest (Right) Arterial Sitting Heart Rate Pre-Dialysis 82 BPM Sitting H eart Rate Post-Dialysis 75 BPM Temperature Pre-Dialysis 97.6 degF Temperature Post -Dialysis 97.6 degF May 31, 2024 In-Center Hemodialysis Treatment 9531-29-29Z67:20:03.000Z 5560-81-22B07:50:04.000Z BP Sitting (Pre-Dialysis) 127/59 mmHg BP Sitting (Post-Dialysis) 119/54 mmHg Concurrent Access: falseCentral Venous Catheter (CVC) Chest (Right) Arterial BP Standing (Pre-Dialysis) 138/60 mmHg BP Standing (P ost-Dialysis) 112/56 mmHg Sitting Heart Rate Pre-Dialysis 72 BPM Sitting Heart Rate Post-Dialysis 69 BPM Standing Heart Rate Pre-Dialysis 72 BPM Standing Heart Rate Post-Dialysis 68 BPM Temperature Pre-Dialysis 97.5 degF Temperature Post -Dialysis 97.6 degF May 29, 2024 In-Center Hemodialysis Treatment 3607-57-45Q89:25:31.000Z 8958-51-18N86:17:31.000Z BP Sitting (Pre-Dialysis) 158/64 mmHg BP Sitting (Post-Dialysis) 131/65 mmHg Concurrent Access: falseCentral Venous Catheter (CVC) Chest (Right) Arterial BP Standing (Pre-Dialysis) 149/80 mmHg BP Standing (P ost-Dialysis) 132/57 mmHg Sitting Heart Rate Pre-Dialysis 67 BPM Sitting Heart Rate Post-Dialysis 72 BPM Standing Heart Rate Pre-Dialysis 71 BPM Standing Heart Rate Post-Dialysis 68 BPM Temperature Pre-Dialysis 97.6 degF Temperature Post -Dialysis 97.6 degF May 26, 2024 In-Center Hemodialysis Treatment 8093-71-73C41:23:02.000Z 2142-46-22X54:54:00.000Z BP Sitting (Pre-Dialysis) 142/67 mmHg BP Sitting (Post-Dialysis) 148/65 mmHg Concurrent Access: falseCentral Venous Catheter (CVC) Chest (Right) Arterial Sitting Heart Rate Pre-Dialysis 77 BPM Sitting H eart Rate Post-Dialysis 70 BPM Temperature Pre-Dialysis 97.3 degF Temperature Post -Dialysis 97.4 degF May 24, 2024 In-Center Hemodialysis Treatment 0422-93-22D66:20:00.000Z 8771-29-45E46:51:30.000Z BP Sitting (Pre-Dialysis) 135/59 mmHg BP Sitting (Post-Dialysis) 143/58 mmHg Concurrent Access: falseCentral Venous Catheter (CVC) Chest (Right) Arterial BP Standing (Pre-Dialysis) 144/62 mmHg Sitti ng Heart Rate Post-Dialysis 75 BPM Sitting Heart Rate Pre-Dialysis 75 BPM Temperatu re Post-Dialysis 97.6 degF Standing Heart Rate Pre-Dialysis 73 BPM Temperature Pre-Dialysis 97.2 degF May 22, 2024 In-Center Hemodialysis Treatment 3684-29-56I53:33:00.000Z 7905-21-60Y57:05:00.000Z BP Sitting (Pre-Dialysis) 149/58 mmHg BP Sitting (Post-Dialysis) 138/60 mmHg Concurrent Access: falseCentral Venous Catheter (CVC) Chest (Right) Arterial BP Standing (Pre-Dialysis) 134/53 mmHg BP Standing (P ost-Dialysis) 136/59 mmHg Sitting Heart Rate Pre-Dialysis 74 BPM Sitting Heart Rate Post-Dialysis 64 BPM Standing Heart Rate Pre-Dialysis 64 BPM Standing Heart Rate Post-Dialysis 64 BPM Temperature Pre-Dialysis 97.6 degF Temperature Post -Dialysis 97.5 degF May 19, 2024 In-Center Hemodialysis Treatment 8282-58-31O95:31:00.000Z 2307-90-07E47:38:34.000Z BP Sitting (Pre-Dialysis) 171/54 mmHg BP Sitting (Post-Dialysis) 173/59 mmHg Concurrent Access: falseCentral Venous Catheter (CVC) Chest (Right) Arterial BP Standing (Pre-Dialysis) 163/56 mmHg BP Standing (P ost-Dialysis) 155/56 mmHg Sitting Heart Rate Pre-Dialysis 67 BPM Sitting Heart Rate Post-Dialysis 73 BPM Standing Heart Rate Pre-Dialysis 72 BPM Standing Heart Rate Post-Dialysis 73 BPM Temperature Pre-Dialysis 97.7 degF Temperature Post -Dialysis 97.5 degF May 17, 2024 In-Center Hemodialysis Treatment 0910-59-49B97:23:00.000Z 3606-31-80E19:00:15.000Z BP Sitting (Pre-Dialysis) 144/66 mmHg BP Sitting (Post-Dialysis) 146/63 mmHg Concurrent Access: falseCentral Venous Catheter (CVC) Chest (Right) Arterial Sitting Heart Rate Pre-Dialysis 79 BPM BP Standing (Post-Dialysis) 135/65 mmHg Temperature Pre-Dialysis 97.2 degF Sitting Heart Ra te Post-Dialysis 70 BPM Standing Heart Rate Post-Stephanie lysis 73 BPM Temperature Post-Dialysis 98 .2 degF May 15, 2024 In-Center Hemodialysis Treatment [id number]:37:42.000Z 8111-16-68Y83:09:42.000Z BP Sitting (Pre-Dialysis) 134/62 mmHg BP Sitting (Post-Dialysis) 142/66 mmHg Concurrent Access: falseCentral Venous Catheter (CVC) Chest (Right) Arterial Sitting Heart Rate Pre-Dialysis 65 BPM BP Standing (Post-Dialysis) 156/66 mmHg Temperature Pre-Dialysis 97.9 degF Sitting Heart Ra te Post-Dialysis 73 BPM Standing Heart Rate Post-Stephanie lysis 69 BPM Temperature Post-Dialysis 97 .7 degF May 12, 2024 In-Center Hemodialysis Treatment 4150-15-99T47:25:54.000Z 3338-70-24O07:55:54.000Z BP Sitting (Pre-Dialysis) 141/66 mmHg BP Sitting (Post-Dialysis) 153/66 mmHg Concurrent Access: falseCentral Venous Catheter (CVC) Chest (Right) Arterial Sitting Heart Rate Pre-Dialysis 76 BPM Sitting H eart Rate Post-Dialysis 69 BPM Temperature Pre-Dialysis 97.6 degF Temperature Post -Dialysis 97.6 degF May 10, 2024 In-Center Hemodialysis Treatment 7848-75-32S61:32:00.000Z 6594-69-02X09:01:30.000Z BP Sitting (Pre-Dialysis) 180/53 mmHg BP Sitting (Post-Dialysis) 155/56 mmHg Concurrent Access: falseCentral Venous Catheter (CVC) Chest (Right) Arterial Sitting Heart Rate Pre-Dialysis 77 BPM BP Standing (Post-Dialysis) 151/62 mmHg Temperature Pre-Dialysis 98.2 degF Sitting Heart Ra te Post-Dialysis 69 BPM Standing Heart Rate Post-Stephanie lysis 72 BPM Temperature Post-Dialysis 97 .2 degF May 08, 2024 In-Center Hemodialysis Treatment 8708-50-52R92:42:57.000Z 8723-03-81I82:01:57.000Z BP Sitting (Pre-Dialysis) 136/62 mmHg BP Sitting (Post-Dialysis) 131/65 mmHg Concurrent Access: falseCentral Venous Catheter (CVC) Chest (Right) Arterial BP Standing (Pre-Dialysis) 163/69 mmHg BP Standing (P ost-Dialysis) 133/67 mmHg Sitting Heart Rate Pre-Dialysis 69 BPM Sitting Heart Rate Post-Dialysis 80 BPM Standing Heart Rate Pre-Dialysis 72 BPM Standing Heart Rate Post-Dialysis 80 BPM Temperature Pre-Dialysis 97.4 degF Temperature Post -Dialysis 97.4 degF May 05, 2024 In-Center Hemodialysis Treatment 5944-26-51G05:41:00.000Z 4703-04-41S03:11:08.000Z BP Sitting (Pre-Dialysis) 148/63 mmHg BP Sitting (Post-Dialysis) 158/66 mmHg Concurrent Access: falseCentral Venous Catheter (CVC) Chest (Right) Arterial Sitting Heart Rate Pre-Dialysis 75 BPM BP Standing (Post-Dialysis) 157/69 mmHg Temperature Pre-Dialysis 97.2 degF Sitting Heart Ra te Post-Dialysis 76 BPM Standing Heart Rate Post-Stephanie lysis 77 BPM Temperature Post-Dialysis 97 .2 degF May 03, 2024 In-Center Hemodialysis Treatment [id number]:33:36.000Z 9678-98-02Y56:04:36.000Z BP Sitting (Pre-Dialysis) 176/69 mmHg BP Sitting (Post-Dialysis) 141/63 mmHg Concurrent Access: falseCentral Venous Catheter (CVC) Chest (Right) Arterial Sitting Heart Rate Pre-Dialysis 83 BPM Sitting H eart Rate Post-Dialysis 78 BPM Temperature Pre-Dialysis 97.2 degF Temperature Post -Dialysis 97.7 degF May 01, 2024 In-Center Hemodialysis Treatment [id number]:44:35.000Z 1720-75-05J06:19:35.000Z BP Sitting (Pre-Dialysis) 159/62 mmHg BP Sitting (Post-Dialysis) 157/67 mmHg Concurrent Access: falseCentral Venous Catheter (CVC) Chest (Right) Arterial Sitting Heart Rate Pre-Dialysis 73 BPM Sitting H eart Rate Post-Dialysis 73 BPM Temperature Pre-Dialysis 98 degF Temperature Post -Dialysis 98 degF April 28, 2024 In-Center Hemodialysis Treatment 5400-73-60P88:32:46.000Z 2311-70-19X74:04:46.000Z BP Sitting (Pre-Dialysis) 148/69 mmHg BP Sitting (Post-Dialysis) 140/67 mmHg Concurrent Access: falseCentral Venous Catheter (CVC) Chest (Right) Arterial Sitting Heart Rate Pre-Dialysis 70 BPM BP Standing (Post-Dialysis) 135/77 mmHg Temperature Pre-Dialysis 97.6 degF Sitting Heart Ra te Post-Dialysis 78 BPM Standing Heart Rate Post-Stephanie lysis 80 BPM Temperature Post-Dialysis 97 .5 degF April 26, 2024 In-Center Hemodialysis Treatment 8807-00-35J50:31:00.000Z 4540-20-85F53:02:14.000Z BP Sitting (Pre-Dialysis) 133/57 mmHg BP Sitting (Post-Dialysis) 134/54 mmHg Concurrent Access: falseCentral Venous Catheter (CVC) Chest (Right) Arterial BP Standing (Pre-Dialysis) 147/67 mmHg BP Standing (P ost-Dialysis) 135/56 mmHg Sitting Heart Rate Pre-Dialysis 70 BPM Sitting Heart Rate Post-Dialysis 74 BPM Standing Heart Rate Pre-Dialysis 72 BPM Standing Heart Rate Post-Dialysis 78 BPM Temperature Pre-Dialysis 98.5 degF Temperature Post -Dialysis 97.6 degF April 24, 2024 In-Center Hemodialysis Treatment 2272-34-04Y72:32:41.000Z 5816-15-28P58:03:42.000Z BP Sitting (Pre-Dialysis) 122/60 mmHg BP Sitting (Post-Dialysis) 157/70 mmHg Concurrent Access: falseCentral Venous Catheter (CVC) Chest (Right) Arterial BP Standing (Pre-Dialysis) 143/68 mmHg BP Standing (P ost-Dialysis) 164/64 mmHg Sitting Heart Rate Pre-Dialysis 71 BPM Sitting Heart Rate Post-Dialysis 87 BPM Standing Heart Rate Pre-Dialysis 76 BPM Standing Heart Rate Post-Dialysis 78 BPM Temperature Pre-Dialysis 98.2 degF Temperature Post -Dialysis 98.3 degF April 21, 2024 In-Center Hemodialysis Treatment 7086-21-18O56:40:00.000Z 6399-38-66P06:12:57.000Z BP Sitting (Pre-Dialysis) 164/57 mmHg BP Sitting (Post-Dialysis) 155/58 mmHg Concurrent Access: falseCentral Venous Catheter (CVC) Chest (Right) Arterial BP Standing (Pre-Dialysis) 166/62 mmHg BP Standing (P ost-Dialysis) 153/57 mmHg Sitting Heart Rate Pre-Dialysis 67 BPM Sitting Heart Rate Post-Dialysis 70 BPM Standing Heart Rate Pre-Dialysis 69 BPM Standing Heart Rate Post-Dialysis 70 BPM Temperature Pre-Dialysis 97.9 degF Temperature Post -Dialysis 98.1 degF April 19, 2024 In-Center Hemodialysis Treatment 6725-44-22X94:39:24.000Z 4944-27-89V44:07:24.000Z BP Sitting (Pre-Dialysis) 147/61 mmHg BP Sitting (Post-Dialysis) 139/54 mmHg Concurrent Access: falseCentral Venous Catheter (CVC) Chest (Right) Arterial Sitting Heart Rate Pre-Dialysis 76 BPM Sitting H eart Rate Post-Dialysis 88 BPM Temperature Pre-Dialysis 97.5 degF Temperature Post -Dialysis 97.7 degF April 17, 2024 In-Center Hemodialysis Treatment [id number]:56:52.000Z 2117-75-80E99:27:52.000Z BP Sitting (Pre-Dialysis) 144/62 mmHg BP Sitting (Post-Dialysis) 134/67 mmHg Concurrent Access: falseCentral Venous Catheter (CVC) Chest (Right) Arterial BP Standing (Pre-Dialysis) 124/65 mmHg BP Standing (P ost-Dialysis) 131/60 mmHg Sitting Heart Rate Pre-Dialysis 82 BPM Sitting Heart Rate Post-Dialysis 87 BPM Standing Heart Rate Pre-Dialysis 89 BPM Standing Heart Rate Post-Dialysis 87 BPM Temperature Pre-Dialysis 97.8 degF Temperature Post -Dialysis 98.4 degF April 14, 2024 In-Center Hemodialysis Treatment [id number]:38:00.000Z [id number]:11:18.000Z BP Sitting (Pre-Dialysis) 130/52 mmHg BP Sitting (Post-Dialysis) 131/64 mmHg Concurrent Access: falseCentral Venous Catheter (CVC) Chest (Right) Arterial Sitting Heart Rate Pre-Dialysis 84 BPM BP Standi ng (Post-Dialysis) 151/63 mmHg Temperature Pre-Dialysis 98 degF Sitting Heart Ra te Post-Dialysis 79 BPM Standing Heart Rate Post-Stephanie lysis 85 BPM Temperature Post-Dialysis 98 degF April 12, 2024 In-Center Hemodialysis Treatment [id number]:36:00.000Z [id number]:10:01.000Z BP Sitting (Pre-Dialysis) 155/66 mmHg BP Sitting (Post-Dialysis) 156/74 mmHg Concurrent Access: falseCentral Venous Catheter (CVC) Chest (Right) Arterial BP Standing (Pre-Dialysis) 128/66 mmHg BP Standing (P ost-Dialysis) 150/72 mmHg Sitting Heart Rate Pre-Dialysis 87 BPM Sitting Heart Rate Post-Dialysis 82 BPM Standing Heart Rate Pre-Dialysis 91 BPM Standing Heart Rate Post-Dialysis 80 BPM Temperature Pre-Dialysis 98.2 degF Temperature Post -Dialysis 97.5 degF April 10, 2024 In-Center Hemodialysis Treatment 2274-01-02R72:43:00.000Z 9700-02-98P45:17:30.000Z BP Sitting (Pre-Dialysis) 150/69 mmHg BP Sitting (Post-Dialysis) 147/58 mmHg Concurrent Access: falseCentral Venous Catheter (CVC) Chest (Right) Arterial Sitting Heart Rate Pre-Dialysis 85 BPM BP Standing (Post-Dialysis) 136/61 mmHg Temperature Pre-Dialysis 97.9 degF Sitting Heart Ra te Post-Dialysis 74 BPM Standing Heart Rate Post-Stephanie lysis 83 BPM Temperature Post-Dialysis 98 .2 degF April 07, 2024 In-Center Hemodialysis Treatment [id number]:29:00.000Z 6415-99-47E72:01:40.000Z BP Sitting (Pre-Dialysis) 175/69 mmHg BP Sitting (Post-Dialysis) 184/72 mmHg Concurrent Access: falseCentral Venous Catheter (CVC) Chest (Right) Arterial BP Standing (Pre-Dialysis) 172/73 mmHg BP Standing (P ost-Dialysis) 181/78 mmHg Sitting Heart Rate Pre-Dialysis 68 BPM Sitting Heart Rate Post-Dialysis 70 BPM Standing Heart Rate Pre-Dialysis 68 BPM Standing Heart Rate Post-Dialysis 72 BPM Temperature Pre-Dialysis 97.4 degF Temperature Post -Dialysis 97.6 degF April 05, 2024 In-Center Hemodialysis Treatment 2678-11-58J15:30:08.000Z 1885-10-54P70:01:08.000Z BP Sitting (Pre-Dialysis) 167/68 mmHg BP Sitting (Post-Dialysis) 153/69 mmHg Concurrent Access: falseCentral Venous Catheter (CVC) Chest (Right) Arterial Sitting Heart Rate Pre-Dialysis 83 BPM Sitting H eart Rate Post-Dialysis 77 BPM Temperature Pre-Dialysis 97.6 degF Temperature Post -Dialysis 97.8 degF April 03, 2024 In-Center Hemodialysis Treatment [id number]:37:33.000Z [id number]:09:33.000Z BP Sitting (Pre-Dialysis) 149/65 mmHg BP Sitting (Post-Dialysis) 194/69 mmHg Concurrent Access: falseCentral Venous Catheter (CVC) Chest (Right) Arterial BP Standing (Pre-Dialysis) 186/65 mmHg BP Standing (P ost-Dialysis) 138/75 mmHg Sitting Heart Rate Pre-Dialysis 75 BPM Sitting Heart Rate Post-Dialysis 79 BPM Standing Heart Rate Pre-Dialysis 77 BPM Standing Heart Rate Post-Dialysis 79 BPM Temperature Pre-Dialysis 98.1 degF Temperature Post -Dialysis 97.8 degF March 31, 2024 In-Center Hemodialysis Treatment [id number]:28:46.000Z 4654-23-66E36:57:47.000Z BP Sitting (Pre-Dialysis) 152/74 mmHg BP Sitting (Post-Dialysis) 175/70 mmHg Concurrent Access: falseCentral Venous Catheter (CVC) Chest (Right) Arterial Sitting Heart Rate Pre-Dialysis 68 BPM Sitting H eart Rate Post-Dialysis 84 BPM Temperature Pre-Dialysis 97.2 degF Temperature Post -Dialysis 97.5 degF March 29, 2024 In-Center Hemodialysis Treatment 5389-54-28S78:31:00.000Z 6982-72-77Q41:06:13.000Z BP Sitting (Pre-Dialysis) 155/79 mmHg BP Sitting (Post-Dialysis) 149/73 mmHg Concurrent Access: falseCentral Venous Catheter (CVC) Chest (Right) Arterial BP Standing (Pre-Dialysis) 153/88 mmHg BP Standing (P ost-Dialysis) 138/73 mmHg Sitting Heart Rate Pre-Dialysis 68 BPM Sitting Heart Rate Post-Dialysis 71 BPM Standing Heart Rate Pre-Dialysis 89 BPM Standing Heart Rate Post-Dialysis 68 BPM Temperature Pre-Dialysis 97.8 degF Temperature Post -Dialysis 97.2 degF March 24, 2024 In-Center Hemodialysis Treatment 4229-89-74L49:29:00.000Z 1241-86-86E60:06:27.000Z BP Sitting (Pre-Dialysis) 156/87 mmHg BP Sitting (Post-Dialysis) 139/78 mmHg Concurrent Access: falseCentral Venous Catheter (CVC) Chest (Right) Arterial BP Standing (Pre-Dialysis) 147/85 mmHg BP Standing (P ost-Dialysis) 117/72 mmHg Sitting Heart Rate Pre-Dialysis 87 BPM Sitting Heart Rate Post-Dialysis 82 BPM Standing Heart Rate Pre-Dialysis 92 BPM Standing Heart Rate Post-Dialysis 91 BPM Temperature Pre-Dialysis 97.6 degF Temperature Post -Dialysis 98.6 degF March 22, 2024 In-Center Hemodialysis Treatment 7945-67-89S74:41:00.000Z 8623-76-56M06:14:54.000Z BP Sitting (Pre-Dialysis) 150/95 mmHg BP Sitting (Post-Dialysis) 166/81 mmHg Concurrent Access: falseCentral Venous Catheter (CVC) Chest (Right) Arterial Sitting Heart Rate Pre-Dialysis 101 BPM Sitting H eart Rate Post-Dialysis 98 BPM Temperature Pre-Dialysis 97 degF Temperature Post -Dialysis 97.7 degF March 20, 2024 In-Center Hemodialysis Treatment 5859-35-14S63:47:23.000Z 6998-13-11A49:19:23.000Z BP Sitting (Pre-Dialysis) 175/89 mmHg BP Sitting (Post-Dialysis) 128/84 mmHg Concurrent Access: falseCentral Venous Catheter (CVC) Chest (Right) Arterial Sitting Heart Rate Pre-Dialysis 87 BPM BP Standing (Post-Dialysis) 157/79 mmHg Temperature Pre-Dialysis 97.1 degF Sitting Heart Ra te Post-Dialysis 105 BPM Standing Heart Rate Post-Stephanie lysis 90 BPM Temperature Post-Dialysis 98 degF March 17, 2024 In-Center Hemodialysis Treatment 2408-22-77L71:30:07.000Z 5991-98-41K75:59:08.000Z BP Sitting (Pre-Dialysis) 161/83 mmHg BP Sitting (Post-Dialysis) 155/85 mmHg Concurrent Access: falseCentral Venous Catheter (CVC) Chest (Right) Arterial Sitting Heart Rate Pre-Dialysis 75 BPM Sitting H eart Rate Post-Dialysis 102 BPM Temperature Pre-Dialysis 97.6 degF Temperature Post -Dialysis 97.4 degF March 15, 2024 In-Center Hemodialysis Treatment 5717-13-08Z51:39:00.000Z 9123-54-26W84:13:35.000Z BP Sitting (Pre-Dialysis) 190/78 mmHg BP Sitting (Post-Dialysis) 100/65 mmHg Concurrent Access: falseCentral Venous Catheter (CVC) Chest (Right) Arterial BP Standing (Pre-Dialysis) 150/95 mmHg BP Standing (P ost-Dialysis) 122/63 mmHg Sitting Heart Rate Pre-Dialysis 68 BPM Sitting Heart Rate Post-Dialysis 94 BPM Standing Heart Rate Pre-Dialysis 85 BPM Standing Heart Rate Post-Dialysis 72 BPM Temperature Pre-Dialysis 97 degF Temperature Post -Dialysis 97.1 degF March 13, 2024 In-Center Hemodialysis Treatment 5585-81-06Y51:40:01.000Z 2590-67-76D73:08:02.000Z BP Sitting (Pre-Dialysis) 147/82 mmHg BP Sitting (Post-Dialysis) 153/82 mmHg Concurrent Access: falseCentral Venous Catheter (CVC) Chest (Right) Arterial BP Standing (Pre-Dialysis) 140/80 mmHg BP Standing (P ost-Dialysis) 153/86 mmHg Sitting Heart Rate Pre-Dialysis 99 BPM Sitting Heart Rate Post-Dialysis 92 BPM Standing Heart Rate Pre-Dialysis 84 BPM Standing Heart Rate Post-Dialysis 90 BPM Temperature Pre-Dialysis 97.1 degF Temperature Post -Dialysis 97.8 degF March 10, 2024 In-Center Hemodialysis Treatment 7494-56-39J71:31:00.000Z 7509-00-01D95:06:40.000Z BP Sitting (Pre-Dialysis) 184/92 mmHg BP Sitting (Post-Dialysis) 165/88 mmHg Concurrent Access: falseCentral Venous Catheter (CVC) Chest (Right) Arterial BP Standing (Pre-Dialysis) 194/76 mmHg BP Standing (P ost-Dialysis) 152/73 mmHg Sitting Heart Rate Pre-Dialysis 82 BPM Sitting Heart Rate Post-Dialysis 86 BPM Standing Heart Rate Pre-Dialysis 80 BPM Standing Heart Rate Post-Dialysis 85 BPM Temperature Pre-Dialysis 97.1 degF Temperature Post -Dialysis 97.2 degF March 08, 2024 In-Center Hemodialysis Treatment [id number]:33:08.000Z 9359-06-42L28:03:08.000Z BP Sitting (Pre-Dialysis) 125/66 mmHg BP Sitting (Post-Dialysis) 131/77 mmHg Concurrent Access: falseCentral Venous Catheter (CVC) Chest (Right) Arterial Sitting Heart Rate Pre-Dialysis 83 BPM Sitting H eart Rate Post-Dialysis 80 BPM Temperature Pre-Dialysis 97.9 degF Temperature Post -Dialysis 97.7 degF March 06, 2024 In-Center Hemodialysis Treatment 0287-09-31H37:49:36.000Z 9730-09-41T47:23:36.000Z BP Sitting (Pre-Dialysis) 99/75 mmHg BP Sitting (Post-Dialysis) 123/64 mmHg Concurrent Access: falseCentral Venous Catheter (CVC) Chest (Right) Arterial Sitting Heart Rate Pre-Dialysis 93 BPM Sitting H eart Rate Post-Dialysis 77 BPM Temperature Pre-Dialysis 98 degF Temperature Post -Dialysis 98 degF March 03, 2024 In-Center Hemodialysis Treatment 7793-17-08Z74:43:46.000Z 6568-11-81T70:07:47.000Z BP Sitting (Pre-Dialysis) 135/60 mmHg BP Sitting (Post-Dialysis) 133/75 mmHg Concurrent Access: falseCentral Venous Catheter (CVC) Chest (Right) Arterial Sitting Heart Rate Pre-Dialysis 99 BPM Sitting H eart Rate Post-Dialysis 65 BPM Temperature Pre-Dialysis 97.3 degF Temperature Post -Dialysis 97.7 degF February 21, 2024 In-Center Hemodialysis Treatment 2730-65-06F65:38:48.000Z 7442-97-33G93:09:48.000Z BP Sitting (Pre-Dialysis) 131/57 mmHg BP Sitting (Post-Dialysis) 119/77 mmHg Concurrent Access: falseCentral Venous Catheter (CVC) Chest (Right) Arterial Sitting Heart Rate Pre-Dialysis 121 BPM Sitting H eart Rate Post-Dialysis 130 BPM Temperature Pre-Dialysis 99 degF Temperature Post -Dialysis 98 degF February 18, 2024 In-Center Hemodialysis Treatment 4152-90-80U54:32:00.000Z 8908-93-88X39:59:01.000Z BP Sitting (Pre-Dialysis) 143/62 mmHg BP Sitting (Post-Dialysis) 106/70 mmHg Concurrent Access: falseCentral Venous Catheter (CVC) Chest (Right) Arterial Sitting Heart Rate Pre-Dialysis 116 BPM Sitting H eart Rate Post-Dialysis 127 BPM Temperature Pre-Dialysis 97.5 degF Temperature Post -Dialysis 97.6 degF February 16, 2024 In-Center Hemodialysis Treatment 3917-88-68P81:32:00.000Z 9742-52-68J68:01:28.000Z BP Sitting (Pre-Dialysis) 151/73 mmHg BP Sitting (Post-Dialysis) 134/80 mmHg Concurrent Access: falseCentral Venous Catheter (CVC) Chest (Right) Arterial BP Standing (Pre-Dialysis) 135/78 mmHg BP Standing (P ost-Dialysis) 132/79 mmHg Sitting Heart Rate Pre-Dialysis 127 BPM Sitting Heart Rate Post-Dialysis 141 BPM Standing Heart Rate Pre-Dialysis 100 BPM Standing Heart Rate Post-Dialysis 150 BPM Temperature Pre-Dialysis 97 degF Temperature Post -Dialysis 97.4 degF February 14, 2024 In-Center Hemodialysis Treatment 2001-16-22F63:34:55.000Z 9882-17-70D14:01:55.000Z BP Sitting (Pre-Dialysis) 187/76 mmHg BP Sitting (Post-Dialysis) 116/57 mmHg Concurrent Access: falseCentral Venous Catheter (CVC) Chest (Right) Arterial BP Standing (Pre-Dialysis) 153/74 mmHg BP Standing (P ost-Dialysis) 111/69 mmHg Sitting Heart Rate Pre-Dialysis 77 BPM Sitting Heart Rate Post-Dialysis 57 BPM Standing Heart Rate Pre-Dialysis 85 BPM Standing Heart Rate Post-Dialysis 94 BPM Temperature Pre-Dialysis 97.8 degF Temperature Post -Dialysis 97.8 degF February 11, 2024 In-Center Hemodialysis Treatment 0593-85-77R35:43:00.000Z 2396-87-79K52:19:06.000Z BP Sitting (Pre-Dialysis) 140/65 mmHg BP Sitting (Post-Dialysis) 131/61 mmHg Concurrent Access: falseCentral Venous Catheter (CVC) Chest (Right) Arterial BP Standing (Pre-Dialysis) 123/62 mmHg Sitti ng Heart Rate Post-Dialysis 70 BPM Sitting Heart Rate Pre-Dialysis 69 BPM Temperatu re Post-Dialysis 97.3 degF Standing Heart Rate Pre-Dialysis 68 BPM Temperature Pre-Dialysis 98.2 degF February 09, 2024 In-Center Hemodialysis Treatment 9303-43-36D83:45:00.000Z 1268-34-75A70:17:34.000Z BP Sitting (Pre-Dialysis) 187/41 mmHg BP Sitting (Post-Dialysis) 164/62 mmHg Concurrent Access: falseCentral Venous Catheter (CVC) Chest (Right) Arterial BP Standing (Pre-Dialysis) 162/68 mmHg BP Standing (P ost-Dialysis) 153/58 mmHg Sitting Heart Rate Pre-Dialysis 70 BPM Sitting Heart Rate Post-Dialysis 63 BPM Standing Heart Rate Pre-Dialysis 77 BPM Standing Heart Rate Post-Dialysis 64 BPM Temperature Pre-Dialysis 98.1 degF Temperature Post -Dialysis 97.3 degF February 06, 2024 In-Center Hemodialysis Treatment 7084-86-82T17:46:45.000Z 5658-57-46W12:18:45.000Z BP Sitting (Pre-Dialysis) 130/49 mmHg BP Sitting (Post-Dialysis) 130/47 mmHg Concurrent Access: falseCentral Venous Catheter (CVC) Chest (Right) Arterial BP Standing (Pre-Dialysis) 152/61 mmHg BP Standing (P ost-Dialysis) 123/52 mmHg Sitting Heart Rate Pre-Dialysis 78 BPM Sitting Heart Rate Post-Dialysis 72 BPM Standing Heart Rate Pre-Dialysis 83 BPM Standing Heart Rate Post-Dialysis 73 BPM Temperature Pre-Dialysis 97.8 degF Temperature Post -Dialysis 97.7 degF February 04, 2024 In-Center Hemodialysis Treatment 9684-31-90P43:45:00.000Z 1495-83-54Z23:21:12.000Z BP Sitting (Pre-Dialysis) 142/71 mmHg BP Sitting (Post-Dialysis) 136/48 mmHg Concurrent Access: falseCentral Venous Catheter (CVC) Chest (Right) Arterial BP Standing (Pre-Dialysis) 153/60 mmHg BP Standing (P ost-Dialysis) 116/42 mmHg Sitting Heart Rate Pre-Dialysis 86 BPM Sitting Heart Rate Post-Dialysis 77 BPM Standing Heart Rate Pre-Dialysis 84 BPM Standing Heart Rate Post-Dialysis 75 BPM Temperature Pre-Dialysis 97.8 degF Temperature Post -Dialysis 97.8 degF February 02, 2024 In-Center Hemodialysis Treatment 9204-85-18H38:57:00.000Z 2636-80-47C61:32:40.000Z BP Sitting (Pre-Dialysis) 148/61 mmHg BP Sitting (Post-Dialysis) 145/57 mmHg Concurrent Access: falseCentral Venous Catheter (CVC) Chest (Right) Arterial BP Standing (Pre-Dialysis) 142/61 mmHg BP Standing (P ost-Dialysis) 138/71 mmHg Sitting Heart Rate Pre-Dialysis 78 BPM Sitting Heart Rate Post-Dialysis 76 BPM Standing Heart Rate Pre-Dialysis 78 BPM Standing Heart Rate Post-Dialysis 63 BPM Temperature Pre-Dialysis 98 degF Temperature Post -Dialysis 98 degF January 30, 2024 In-Center Hemodialysis Treatment 3800-73-83J99:39:51.000Z 7826-64-46X68:10:51.000Z BP Sitting (Pre-Dialysis) 140/68 mmHg BP Sitting (Post-Dialysis) 120/55 mmHg Concurrent Access: falseCentral Venous Catheter (CVC) Chest (Right) Arterial Sitting Heart Rate Pre-Dialysis 73 BPM BP Standing (Post-Dialysis) 122/56 mmHg Temperature Pre-Dialysis 98.2 degF Sitting Heart Ra te Post-Dialysis 70 BPM Standing Heart Rate Post-Stephanie lysis 71 BPM Temperature Post-Dialysis 97 .8 degF January 28, 2024 In-Center Hemodialysis Treatment 6833-82-33R69:45:17.000Z 5832-77-11J81:16:17.000Z BP Sitting (Pre-Dialysis) 159/52 mmHg BP Sitting (Post-Dialysis) 141/52 mmHg Concurrent Access: falseCentral Venous Catheter (CVC) Chest (Right) Arterial Sitting Heart Rate Pre-Dialysis 72 BPM Sitting H eart Rate Post-Dialysis 65 BPM Temperature Pre-Dialysis 97 degF Temperature Post -Dialysis 97.6 degF January 26, 2024 In-Center Hemodialysis Treatment [id number]:39:45.000Z 4221-59-12H10:11:45.000Z BP Sitting (Pre-Dialysis) 147/68 mmHg BP Sitting (Post-Dialysis) 127/55 mmHg Concurrent Access: falseCentral Venous Catheter (CVC) Chest (Right) Arterial Sitting Heart Rate Pre-Dialysis 69 BPM BP Standing (Post-Dialysis) 122/58 mmHg Temperature Pre-Dialysis 97.9 degF Sitting Heart Ra te Post-Dialysis 69 BPM Standing Heart Rate Post-Stephanie lysis 66 BPM Temperature Post-Dialysis 97 .8 degF January 24, 2024 In-Center Hemodialysis Treatment 3974-29-01P94:41:12.000Z 1455-67-85Z47:12:13.000Z BP Sitting (Pre-Dialysis) 176/67 mmHg BP Sitting (Post-Dialysis) 143/60 mmHg Concurrent Access: falseCentral Venous Catheter (CVC) Chest (Right) Arterial BP Standing (Pre-Dialysis) 175/74 mmHg BP Standing (P ost-Dialysis) 134/71 mmHg Sitting Heart Rate Pre-Dialysis 68 BPM Sitting Heart Rate Post-Dialysis 71 BPM Standing Heart Rate Pre-Dialysis 69 BPM Standing Heart Rate Post-Dialysis 78 BPM Temperature Pre-Dialysis 97.8 degF Temperature Post -Dialysis 97.8 degF January 21, 2024 In-Center Hemodialysis Treatment 9794-29-64Y52:51:00.000Z 3404-85-71S78:22:24.000Z BP Sitting (Pre-Dialysis) 144/65 mmHg BP Sitting (Post-Dialysis) 150/75 mmHg Concurrent Access: falseCentral Venous Catheter (CVC) Chest (Right) Arterial BP Standing (Pre-Dialysis) 155/70 mmHg BP Standing (P ost-Dialysis) 155/74 mmHg Sitting Heart Rate Pre-Dialysis 65 BPM Sitting Heart Rate Post-Dialysis 70 BPM Standing Heart Rate Pre-Dialysis 70 BPM Standing Heart Rate Post-Dialysis 68 BPM Temperature Pre-Dialysis 98 degF Temperature Post -Dialysis 98 degF January 19, 2024 In-Center Hemodialysis Treatment [id number]:54:51.000Z 3177-71-59U49:25:52.000Z BP Sitting (Pre-Dialysis) 155/67 mmHg BP Sitting (Post-Dialysis) 146/59 mmHg Concurrent Access: falseCentral Venous Catheter (CVC) Chest (Right) Arterial BP Standing (Pre-Dialysis) 139/56 mmHg BP Standing (P ost-Dialysis) 127/54 mmHg Sitting Heart Rate Pre-Dialysis 69 BPM Sitting Heart Rate Post-Dialysis 70 BPM Standing Heart Rate Pre-Dialysis 72 BPM Standing Heart Rate Post-Dialysis 69 BPM Temperature Pre-Dialysis 97.8 degF Temperature Post -Dialysis 97.8 degF January 17, 2024 In-Center Hemodialysis Treatment 0591-72-30X57:53:18.000Z 0403-34-10Q47:28:19.000Z BP Sitting (Pre-Dialysis) 149/57 mmHg BP Sitting (Post-Dialysis) 140/62 mmHg Concurrent Access: falseCentral Venous Catheter (CVC) Chest (Right) Arterial Sitting Heart Rate Pre-Dialysis 75 BPM Sitting H eart Rate Post-Dialysis 69 BPM Temperature Pre-Dialysis 97.8 degF Temperature Post -Dialysis 97.8 degF January 14, 2024 In-Center Hemodialysis Treatment 5969-07-27D10:55:00.000Z 6291-89-33V19:02:01.000Z BP Sitting (Pre-Dialysis) 145/57 mmHg BP Sitting (Post-Dialysis) 159/66 mmHg Concurrent Access: falseCentral Venous Catheter (CVC) Chest (Right) Arterial BP Standing (Pre-Dialysis) 164/71 mmHg BP Standing (P ost-Dialysis) 140/61 mmHg Sitting Heart Rate Pre-Dialysis 70 BPM Sitting Heart Rate Post-Dialysis 69 BPM Standing Heart Rate Pre-Dialysis 71 BPM Standing Heart Rate Post-Dialysis 73 BPM Temperature Pre-Dialysis 97.2 degF Temperature Post -Dialysis 97.5 degF January 12, 2024 In-Center Hemodialysis Treatment 5121-67-75H19:57:27.000Z 9630-92-53X52:28:28.000Z BP Sitting (Pre-Dialysis) 136/53 mmHg BP Sitting (Post-Dialysis) 146/60 mmHg Concurrent Access: falseCentral Venous Catheter (CVC) Chest (Right) Arterial Sitting Heart Rate Pre-Dialysis 73 BPM BP Standing (Post-Dialysis) 119/63 mmHg Temperature Pre-Dialysis 97.8 degF Sitting Heart Ra te Post-Dialysis 74 BPM Standing Heart Rate Post-Stephanie lysis 77 BPM Temperature Post-Dialysis 97 .8 degF January 10, 2024 In-Center Hemodialysis Treatment 2529-08-55J19:01:49.000Z 0044-93-92J58:33:50.000Z BP Sitting (Pre-Dialysis) 136/61 mmHg BP Sitting (Post-Dialysis) 145/65 mmHg Concurrent Access: falseCentral Venous Catheter (CVC) Chest (Right) Arterial BP Standing (Pre-Dialysis) 127/63 mmHg BP Standing (P ost-Dialysis) 146/67 mmHg Sitting Heart Rate Pre-Dialysis 66 BPM Sitting Heart Rate Post-Dialysis 76 BPM Standing Heart Rate Pre-Dialysis 69 BPM Standing Heart Rate Post-Dialysis 75 BPM Temperature Pre-Dialysis 97.6 degF Temperature Post -Dialysis 97 degF January 07, 2024 In-Center Hemodialysis Treatment 2957-68-16F97:46:00.000Z 7289-35-78X97:17:01.000Z BP Sitting (Pre-Dialysis) 160/63 mmHg BP Sitting (Post-Dialysis) 132/58 mmHg Concurrent Access: falseCentral Venous Catheter (CVC) Chest (Right) Arterial Sitting Heart Rate Pre-Dialysis 72 BPM BP Standing (Post-Dialysis) 130/65 mmHg Temperature Pre-Dialysis 97.8 degF Sitting Heart Ra te Post-Dialysis 71 BPM Standing Heart Rate Post-Stephanie lysis 70 BPM Temperature Post-Dialysis 97 .9 degF January 04, 2024 In-Center Hemodialysis Treatment 3145-46-22U96:39:00.000Z 1312-34-17C84:09:54.000Z BP Sitting (Pre-Dialysis) 147/49 mmHg BP Sitting (Post-Dialysis) 147/69 mmHg Concurrent Access: falseCentral Venous Catheter (CVC) Chest (Right) Arterial BP Standing (Pre-Dialysis) 160/62 mmHg BP Standing (P ost-Dialysis) 129/65 mmHg Sitting Heart Rate Pre-Dialysis 68 BPM Sitting Heart Rate Post-Dialysis 65 BPM Standing Heart Rate Pre-Dialysis 83 BPM Standing Heart Rate Post-Dialysis 67 BPM Temperature Pre-Dialysis 98.4 degF Temperature Post -Dialysis 97.3 degF January 02, 2024 In-Center Hemodialysis Treatment 1931-20-44C92:46:17.000Z 1888-88-30B33:15:18.000Z BP Sitting (Pre-Dialysis) 152/72 mmHg BP Sitting (Post-Dialysis) 145/51 mmHg Concurrent Access: falseCentral Venous Catheter (CVC) Chest (Right) Arterial Sitting Heart Rate Pre-Dialysis 71 BPM BP Standing (Post-Dialysis) 121/52 mmHg Temperature Pre-Dialysis 97.8 degF Sitting Heart Ra te Post-Dialysis 71 BPM Standing Heart Rate Post-Stephanie lysis 76 BPM Temperature Post-Dialysis 97 .8 degF December 31, 2023 In-Center Hemodialysis Treatment 4420-02-98Y28:50:37.000Z 9436-16-48K15:22:37.000Z BP Sitting (Pre-Dialysis) 158/70 mmHg BP Sitting (Post-Dialysis) 146/69 mmHg Concurrent Access: falseCentral Venous Catheter (CVC) Chest (Right) Arterial Sitting Heart Rate Pre-Dialysis 67 BPM BP Standing (Post-Dialysis) 150/75 mmHg Temperature Pre-Dialysis 97.6 degF Sitting Heart Ra te Post-Dialysis 75 BPM Standing Heart Rate Post-Stephanie lysis 75 BPM Temperature Post-Dialysis 97 .5 degF December 29, 2023 In-Center Hemodialysis Treatment 1505-09-88W67:01:00.000Z 8371-06-64K12:32:00.000Z BP Sitting (Pre-Dialysis) 137/60 mmHg BP Sitting (Post-Dialysis) 131/54 mmHg Concurrent Access: falseCentral Venous Catheter (CVC) Chest (Right) Arterial Sitting Heart Rate Pre-Dialysis 67 BPM Sitting H eart Rate Post-Dialysis 69 BPM Temperature Pre-Dialysis 97.8 degF Temperature Post -Dialysis 97.6 degF December 27, 2023 In-Center Hemodialysis Treatment [id number]:49:24.000Z 8375-35-63M74:22:25.000Z BP Sitting (Pre-Dialysis) 130/60 mmHg BP Sitting (Post-Dialysis) 132/60 mmHg Concurrent Access: falseCentral Venous Catheter (CVC) Chest (Right) Arterial BP Standing (Pre-Dialysis) 131/61 mmHg BP Standing (P ost-Dialysis) 122/62 mmHg Sitting Heart Rate Pre-Dialysis 70 BPM Sitting Heart Rate Post-Dialysis 70 BPM Standing Heart Rate Pre-Dialysis 66 BPM Standing Heart Rate Post-Dialysis 71 BPM Temperature Pre-Dialysis 98 degF Temperature Post -Dialysis 97.8 degF December 24, 2023 In-Center Hemodialysis Treatment 3420-27-00O84:54:24.000Z 8663-55-14M22:00:24.000Z BP Sitting (Pre-Dialysis) 133/31 mmHg BP Sitting (Post-Dialysis) 139/32 mmHg Concurrent Access: falseCentral Venous Catheter (CVC) Chest (Right) Arterial BP Standing (Pre-Dialysis) 125/38 mmHg BP Standing (P ost-Dialysis) 134/46 mmHg Sitting Heart Rate Pre-Dialysis 68 BPM Sitting Heart Rate Post-Dialysis 72 BPM Standing Heart Rate Pre-Dialysis 67 BPM Standing Heart Rate Post-Dialysis 73 BPM Temperature Pre-Dialysis 98 degF Temperature Post -Dialysis 98 degF December 22, 2023 In-Center Hemodialysis Treatment 9943-59-54M24:55:24.000Z 4326-04-17K87:41:24.000Z BP Sitting (Pre-Dialysis) 131/58 mmHg BP Sitting (Post-Dialysis) 166/66 mmHg Concurrent Access: falseCentral Venous Catheter (CVC) Chest (Right) Arterial BP Standing (Pre-Dialysis) 129/64 mmHg BP Standing (P ost-Dialysis) 156/70 mmHg Sitting Heart Rate Pre-Dialysis 66 BPM Sitting Heart Rate Post-Dialysis 85 BPM Standing Heart Rate Pre-Dialysis 70 BPM Standing Heart Rate Post-Dialysis 88 BPM Temperature Pre-Dialysis 97.9 degF Temperature Post -Dialysis 97.8 degF December 20, 2023 In-Center Hemodialysis Treatment [id number]:46:24.000Z 7952-03-21R42:20:25.000Z BP Sitting (Pre-Dialysis) 143/97 mmHg BP Sitting (Post-Dialysis) 146/68 mmHg Concurrent Access: falseCentral Venous Catheter (CVC) Chest (Right) Arterial Sitting Heart Rate Pre-Dialysis 72 BPM Sitting H eart Rate Post-Dialysis 69 BPM Temperature Pre-Dialysis 97.8 degF Temperature Post -Dialysis 97.8 degF December 17, 2023 In-Center Hemodialysis Treatment [id number]:43:00.000Z 1401-91-44Z64:17:25.000Z BP Sitting (Pre-Dialysis) 150/70 mmHg BP Sitting (Post-Dialysis) 138/63 mmHg Concurrent Access: falseCentral Venous Catheter (CVC) Chest (Right) Arterial BP Standing (Pre-Dialysis) 160/70 mmHg BP Standing (P ost-Dialysis) 139/59 mmHg Sitting Heart Rate Pre-Dialysis 77 BPM Sitting Heart Rate Post-Dialysis 73 BPM Standing Heart Rate Pre-Dialysis 79 BPM Standing Heart Rate Post-Dialysis 69 BPM Temperature Pre-Dialysis 98.8 degF Temperature Post -Dialysis 97.6 degF December 15, 2023 In-Center Hemodialysis Treatment 2049-19-22I82:47:24.000Z 2075-34-60F53:19:24.000Z BP Sitting (Pre-Dialysis) 163/61 mmHg BP Sitting (Post-Dialysis) 138/63 mmHg Concurrent Access: falseCentral Venous Catheter (CVC) Chest (Right) Arterial Sitting Heart Rate Pre-Dialysis 73 BPM BP Standing (Post-Dialysis) 137/66 mmHg Temperature Pre-Dialysis 97.8 degF Sitting Heart Ra te Post-Dialysis 70 BPM Standing Heart Rate Post-Stephanie lysis 69 BPM Temperature Post-Dialysis 97 .8 degF December 10, 2023 In-Center Hemodialysis Treatment [id number]:44:00.000Z [id number]:17:18.000Z BP Sitting (Pre-Dialysis) 124/54 mmHg BP Sitting (Post-Dialysis) 136/61 mmHg Concurrent Access: falseCentral Venous Catheter (CVC) Chest (Right) Arterial BP Standing (Pre-Dialysis) 147/56 mmHg BP Standing (P ost-Dialysis) 135/56 mmHg Sitting Heart Rate Pre-Dialysis 73 BPM Sitting Heart Rate Post-Dialysis 71 BPM Standing Heart Rate Pre-Dialysis 75 BPM Standing Heart Rate Post-Dialysis 72 BPM Temperature Pre-Dialysis 97.8 degF Temperature Post -Dialysis 97.8 degF December 08, 2023 In-Center Hemodialysis Treatment [id number]:49:17.000Z 9942-03-90F94:25:18.000Z BP Sitting (Pre-Dialysis) 137/55 mmHg BP Sitting (Post-Dialysis) 126/49 mmHg Concurrent Access: falseCentral Venous Catheter (CVC) Chest (Right) Arterial BP Standing (Pre-Dialysis) 146/63 mmHg BP Standing (P ost-Dialysis) 136/53 mmHg Sitting Heart Rate Pre-Dialysis 73 BPM Sitting Heart Rate Post-Dialysis 77 BPM Standing Heart Rate Pre-Dialysis 78 BPM Standing Heart Rate Post-Dialysis 68 BPM Temperature Pre-Dialysis 97.8 degF Temperature Post -Dialysis 97.5 degF December 06, 2023 In-Center Hemodialysis Treatment 1965-47-10N84:50:17.000Z 3257-90-53M65:24:17.000Z BP Sitting (Pre-Dialysis) 141/65 mmHg BP Sitting (Post-Dialysis) 139/59 mmHg Concurrent Access: falseCentral Venous Catheter (CVC) Chest (Right) Arterial Sitting Heart Rate Pre-Dialysis 74 BPM Sitting H eart Rate Post-Dialysis 75 BPM Temperature Pre-Dialysis 97.8 degF Temperature Post -Dialysis 97.8 degF December 03, 2023 In-Center Hemodialysis Treatment 3213-34-22B86:07:17.000Z 6937-51-41O74:42:18.000Z BP Sitting (Pre-Dialysis) 150/66 mmHg BP Sitting (Post-Dialysis) 136/60 mmHg Concurrent Access: falseCentral Venous Catheter (CVC) Chest (Right) Arterial Sitting Heart Rate Pre-Dialysis 73 BPM BP Standing (Post-Dialysis) 138/60 mmHg Temperature Pre-Dialysis 97.6 degF Sitting Heart Ra te Post-Dialysis 78 BPM Standing Heart Rate Post-Stephanie lysis 78 BPM Temperature Post-Dialysis 97 .6 degF December 01, 2023 In-Center Hemodialysis Treatment 6363-28-04Y28:55:00.000Z 3562-21-29I38:32:18.000Z BP Sitting (Pre-Dialysis) 152/52 mmHg BP Sitting (Post-Dialysis) 138/61 mmHg Concurrent Access: falseCentral Venous Catheter (CVC) Chest (Right) Arterial BP Standing (Pre-Dialysis) 146/66 mmHg BP Standing (P ost-Dialysis) 157/59 mmHg Sitting Heart Rate Pre-Dialysis 80 BPM Sitting Heart Rate Post-Dialysis 72 BPM Standing Heart Rate Pre-Dialysis 73 BPM Standing Heart Rate Post-Dialysis 61 BPM Temperature Pre-Dialysis 98.2 degF Temperature Post -Dialysis 98.3 degF November 29, 2023 In-Center Hemodialysis Treatment 1916-98-91P81:45:00.000Z 3514-88-15V54:25:18.000Z BP Sitting (Pre-Dialysis) 128/82 mmHg BP Sitting (Post-Dialysis) 162/77 mmHg Concurrent Access: falseCentral Venous Catheter (CVC) Chest (Right) Arterial BP Standing (Pre-Dialysis) 168/81 mmHg Sitting Heart Rate Post-Dialysis 69 BPM Sitting Heart Rate Pre-Dialysis 69 BPM Temperatu re Post-Dialysis 98 degF Standing Heart Rate Pre-Dialysis 73 BPM Temperature Pre-Dialysis 98 degF November 26, 2023 In-Center Hemodialysis Treatment [id number]:56:00.000Z 0036-56-23W81:28:19.000Z BP Sitting (Pre-Dialysis) 148/64 mmHg BP Sitting (Post-Dialysis) 149/72 mmHg Concurrent Access: falseCentral Venous Catheter (CVC) Chest (Right) Arterial BP Standing (Pre-Dialysis) 164/67 mmHg BP Standing (P ost-Dialysis) 155/78 mmHg Sitting Heart Rate Pre-Dialysis 75 BPM Sitting Heart Rate Post-Dialysis 69 BPM Standing Heart Rate Pre-Dialysis 75 BPM Standing Heart Rate Post-Dialysis 67 BPM Temperature Pre-Dialysis 98 degF Temperature Post -Dialysis 98 degF November 24, 2023 In-Center Hemodialysis Treatment 0617-34-89G36:54:19.000Z 4353-81-01Z35:29:19.000Z BP Sitting (Pre-Dialysis) 162/64 mmHg BP Sitting (Post-Dialysis) 154/74 mmHg Concurrent Access: falseCentral Venous Catheter (CVC) Chest (Right) Arterial BP Standing (Pre-Dialysis) 163/66 mmHg BP Standing (P ost-Dialysis) 148/55 mmHg Sitting Heart Rate Pre-Dialysis 73 BPM Sitting Heart Rate Post-Dialysis 70 BPM Standing Heart Rate Pre-Dialysis 71 BPM Standing Heart Rate Post-Dialysis 75 BPM Temperature Pre-Dialysis 98 degF Temperature Post -Dialysis 97.8 degF November 22, 2023 In-Center Hemodialysis Treatment 0080-55-16N06:46:19.000Z 4017-28-24B98:13:19.000Z BP Sitting (Pre-Dialysis) 168/72 mmHg BP Sitting (Post-Dialysis) 169/77 mmHg Concurrent Access: falseCentral Venous Catheter (CVC) Chest (Right) Arterial BP Standing (Pre-Dialysis) 191/69 mmHg BP Standing (P ost-Dialysis) 149/68 mmHg Sitting Heart Rate Pre-Dialysis 75 BPM Sitting Heart Rate Post-Dialysis 72 BPM Standing Heart Rate Pre-Dialysis 81 BPM Standing Heart Rate Post-Dialysis 78 BPM Temperature Pre-Dialysis 97.8 degF Temperature Post -Dialysis 97.4 degF November 19, 2023 In-Center Hemodialysis Treatment 3325-92-45U21:56:00.000Z 5094-44-43K53:31:56.000Z BP Sitting (Pre-Dialysis) 133/60 mmHg BP Sitting (Post-Dialysis) 149/65 mmHg Concurrent Access: falseCentral Venous Catheter (CVC) Chest (Right) Arterial BP Standing (Pre-Dialysis) 137/64 mmHg BP Standing (P ost-Dialysis) 135/65 mmHg Sitting Heart Rate Pre-Dialysis 70 BPM Sitting Heart Rate Post-Dialysis 75 BPM Standing Heart Rate Pre-Dialysis 75 BPM Standing Heart Rate Post-Dialysis 74 BPM Temperature Pre-Dialysis 98.5 degF Temperature Post -Dialysis 98.4 degF November 17, 2023 In-Center Hemodialysis Treatment 9856-72-67Z75:49:55.000Z 6144-44-07R59:24:56.000Z BP Sitting (Pre-Dialysis) 165/68 mmHg BP Sitting (Post-Dialysis) 151/70 mmHg Concurrent Access: falseCentral Venous Catheter (CVC) Chest (Right) Arterial BP Standing (Pre-Dialysis) 147/73 mmHg BP Standing (P ost-Dialysis) 159/77 mmHg Sitting Heart Rate Pre-Dialysis 81 BPM Sitting Heart Rate Post-Dialysis 75 BPM Standing Heart Rate Pre-Dialysis 76 BPM Standing Heart Rate Post-Dialysis 78 BPM Temperature Pre-Dialysis 97.5 degF Temperature Post -Dialysis 98 degF November 15, 2023 In-Center Hemodialysis Treatment 7602-14-81K32:50:11.000Z 3975-45-12I12:23:11.000Z BP Sitting (Pre-Dialysis) 186/73 mmHg BP Sitting (Post-Dialysis) 144/67 mmHg Concurrent Access: falseCentral Venous Catheter (CVC) Chest (Right) Arterial Sitting Heart Rate Pre-Dialysis 80 BPM BP Standing (Post-Dialysis) 125/69 mmHg Temperature Pre-Dialysis 97.8 degF Sitting Heart Ra te Post-Dialysis 74 BPM Standing Heart Rate Post-Stephanie lysis 74 BPM Temperature Post-Dialysis 97 .3 degF November 12, 2023 In-Center Hemodialysis Treatment 1968-75-28F85:50:00.000Z 9544-74-72U36:26:43.000Z BP Sitting (Pre-Dialysis) 160/64 mmHg BP Sitting (Post-Dialysis) 163/59 mmHg Concurrent Access: falseCentral Venous Catheter (CVC) Chest (Right) Arterial BP Standing (Pre-Dialysis) 182/73 mmHg BP Standing (P ost-Dialysis) 169/73 mmHg Sitting Heart Rate Pre-Dialysis 79 BPM Sitting Heart Rate Post-Dialysis 69 BPM Standing Heart Rate Pre-Dialysis 79 BPM Standing Heart Rate Post-Dialysis 73 BPM Temperature Pre-Dialysis 97.9 degF Temperature Post -Dialysis 97.7 degF November 10, 2023 In-Center Hemodialysis Treatment 6575-94-94A41:42:00.000Z 0740-42-48S64:12:43.000Z BP Sitting (Pre-Dialysis) 182/79 mmHg BP Sitting (Post-Dialysis) 165/76 mmHg Concurrent Access: falseCentral Venous Catheter (CVC) Chest (Right) Arterial BP Standing (Pre-Dialysis) 202/111 mmHg BP Standing (P ost-Dialysis) 161/65 mmHg Sitting Heart Rate Pre-Dialysis 78 BPM Sitting Heart Rate Post-Dialysis 69 BPM Standing Heart Rate Pre-Dialysis 66 BPM Standing Heart Rate Post-Dialysis 66 BPM Temperature Pre-Dialysis 97.8 degF Temperature Post -Dialysis 97.8 degF November 08, 2023 In-Center Hemodialysis Treatment 5610-38-56G49:03:43.000Z 4925-15-01Y81:34:43.000Z BP Sitting (Pre-Dialysis) 155/66 mmHg BP Sitting (Post-Dialysis) 144/62 mmHg Concurrent Access: falseCentral Venous Catheter (CVC) Chest (Right) Arterial BP Standing (Pre-Dialysis) 154/68 mmHg BP Standing (P ost-Dialysis) 133/57 mmHg Sitting Heart Rate Pre-Dialysis 70 BPM Sitting Heart Rate Post-Dialysis 70 BPM Standing Heart Rate Pre-Dialysis 78 BPM Standing Heart Rate Post-Dialysis 72 BPM Temperature Pre-Dialysis 97.9 degF Temperature Post -Dialysis 97.2 degF November 05, 2023 In-Center Hemodialysis Treatment 4039-78-12N24:52:12.000Z 0963-42-40L75:22:13.000Z BP Sitting (Pre-Dialysis) 148/62 mmHg BP Sitting (Post-Dialysis) 159/67 mmHg Concurrent Access: falseCentral Venous Catheter (CVC) Chest (Right) Arterial Sitting Heart Rate Pre-Dialysis 72 BPM Sitting H eart Rate Post-Dialysis 78 BPM Temperature Pre-Dialysis 97.8 degF Temperature Post -Dialysis 97.8 degF November 03, 2023 In-Center Hemodialysis Treatment 7977-57-39Q82:51:34.000Z 5778-79-55O51:22:34.000Z BP Sitting (Pre-Dialysis) 152/66 mmHg BP Sitting (Post-Dialysis) 157/69 mmHg Concurrent Access: falseCentral Venous Catheter (CVC) Chest (Right) Arterial BP Standing (Pre-Dialysis) 173/77 mmHg BP Standing (P ost-Dialysis) 149/69 mmHg Sitting Heart Rate Pre-Dialysis 72 BPM Sitting Heart Rate Post-Dialysis 69 BPM Standing Heart Rate Pre-Dialysis 78 BPM Standing Heart Rate Post-Dialysis 68 BPM Temperature Pre-Dialysis 97.9 degF Temperature Post -Dialysis 97.6 degF November 01, 2023 In-Center Hemodialysis Treatment 4256-01-92Z61:48:34.000Z 7587-17-83C27:20:34.000Z BP Sitting (Pre-Dialysis) 161/72 mmHg BP Sitting (Post-Dialysis) 150/70 mmHg Concurrent Access: falseCentral Venous Catheter (CVC) Chest (Right) Arterial BP Standing (Pre-Dialysis) 176/89 mmHg BP Standing (P ost-Dialysis) 157/69 mmHg Sitting Heart Rate Pre-Dialysis 76 BPM Sitting Heart Rate Post-Dialysis 72 BPM Standing Heart Rate Pre-Dialysis 81 BPM Standing Heart Rate Post-Dialysis 73 BPM Temperature Pre-Dialysis 97.6 degF Temperature Post -Dialysis 97.8 degF October 29, 2023 In-Center Hemodialysis Treatment 6404-10-17Y22:49:34.000Z 1923-46-52I30:24:34.000Z BP Sitting (Pre-Dialysis) 132/52 mmHg BP Sitting (Post-Dialysis) 151/71 mmHg Concurrent Access: falseCentral Venous Catheter (CVC) Chest (Right) Arterial BP Standing (Pre-Dialysis) 149/59 mmHg Sitti ng Heart Rate Post-Dialysis 69 BPM Sitting Heart Rate Pre-Dialysis 80 BPM Temperatu re Post-Dialysis 97.9 degF Standing Heart Rate Pre-Dialysis 83 BPM Temperature Pre-Dialysis 97.9 degF October 27, 2023 In-Center Hemodialysis Treatment 4747-06-92M43:49:00.000Z 8081-46-52C40:20:34.000Z BP Sitting (Pre-Dialysis) 158/57 mmHg BP Sitting (Post-Dialysis) 135/57 mmHg Concurrent Access: falseCentral Venous Catheter (CVC) Chest (Right) Arterial BP Standing (Pre-Dialysis) 159/61 mmHg BP Standing (P ost-Dialysis) 132/59 mmHg Sitting Heart Rate Pre-Dialysis 78 BPM Sitting Heart Rate Post-Dialysis 72 BPM Standing Heart Rate Pre-Dialysis 78 BPM Standing Heart Rate Post-Dialysis 71 BPM Temperature Pre-Dialysis 98.3 degF Temperature Post -Dialysis 97.5 degF October 25, 2023 In-Center Hemodialysis Treatment [id number]:56:09.000Z 3122-54-89V14:24:09.000Z BP Sitting (Pre-Dialysis) 174/73 mmHg BP Sitting (Post-Dialysis) 175/70 mmHg Concurrent Access: falseCentral Venous Catheter (CVC) Chest (Right) Arterial BP Standing (Pre-Dialysis) 190/51 mmHg BP Standing (P ost-Dialysis) 167/70 mmHg Sitting Heart Rate Pre-Dialysis 85 BPM Sitting Heart Rate Post-Dialysis 82 BPM Standing Heart Rate Pre-Dialysis 81 BPM Standing Heart Rate Post-Dialysis 78 BPM Temperature Pre-Dialysis 97.9 degF Temperature Post -Dialysis 97.9 degF October 22, 2023 In-Center Hemodialysis Treatment 8956-59-26F26:51:00.000Z 2137-74-52A85:28:19.000Z BP Sitting (Pre-Dialysis) 136/57 mmHg BP Sitting (Post-Dialysis) 157/61 mmHg Concurrent Access: falseCentral Venous Catheter (CVC) Chest (Right) Arterial BP Standing (Pre-Dialysis) 136/58 mmHg BP Standing (P ost-Dialysis) 156/71 mmHg Sitting Heart Rate Pre-Dialysis 74 BPM Sitting Heart Rate Post-Dialysis 65 BPM Standing Heart Rate Pre-Dialysis 72 BPM Standing Heart Rate Post-Dialysis 67 BPM Temperature Pre-Dialysis 99 degF Temperature Post -Dialysis 98.4 degF October 20, 2023 In-Center Hemodialysis Treatment 1511-25-55I94:52:19.000Z 3714-24-40W13:19:19.000Z BP Sitting (Pre-Dialysis) 184/81 mmHg BP Sitting (Post-Dialysis) 162/77 mmHg Concurrent Access: falseCentral Venous Catheter (CVC) Chest (Right) Arterial BP Standing (Pre-Dialysis) 151/85 mmHg BP Standing (P ost-Dialysis) 151/74 mmHg Sitting Heart Rate Pre-Dialysis 83 BPM Sitting Heart Rate Post-Dialysis 71 BPM Standing Heart Rate Pre-Dialysis 92 BPM Standing Heart Rate Post-Dialysis 69 BPM Temperature Pre-Dialysis 97.8 degF Temperature Post -Dialysis 97.5 degF October 18, 2023 In-Center Hemodialysis Treatment 8452-41-95F39:50:00.000Z 2126-63-49J28:29:06.000Z BP Sitting (Pre-Dialysis) 160/66 mmHg BP Sitting (Post-Dialysis) 166/66 mmHg Concurrent Access: falseCentral Venous Catheter (CVC) Chest (Right) Arterial Sitting Heart Rate Pre-Dialysis 76 BPM BP Standing (Post-Dialysis) 167/67 mmHg Temperature Pre-Dialysis 97.8 degF Sitting Heart Ra te Post-Dialysis 75 BPM Standing Heart Rate Post-Stephanie lysis 76 BPM Temperature Post-Dialysis 97 .8 degF October 15, 2023 In-Center Hemodialysis Treatment 2666-03-28W63:59:56.000Z 2077-50-75Q87:30:56.000Z BP Sitting (Pre-Dialysis) 159/73 mmHg BP Sitting (Post-Dialysis) 147/65 mmHg Concurrent Access: falseCentral Venous Catheter (CVC) Chest (Right) Arterial Sitting Heart Rate Pre-Dialysis 74 BPM BP Standing (Post-Dialysis) 136/62 mmHg Temperature Pre-Dialysis 98.4 degF Sitting Heart Ra te Post-Dialysis 67 BPM Standing Heart Rate Post-Stephanie lysis 70 BPM Temperature Post-Dialysis 97 .8 degF October 13, 2023 In-Center Hemodialysis Treatment 6807-94-75Y45:01:56.000Z 7105-94-36T22:32:56.000Z BP Sitting (Pre-Dialysis) 148/74 mmHg BP Sitting (Post-Dialysis) 151/76 mmHg Concurrent Access: falseCentral Venous Catheter (CVC) Chest (Right) Arterial BP Standing (Pre-Dialysis) 115/73 mmHg BP Standing (P ost-Dialysis) 147/63 mmHg Sitting Heart Rate Pre-Dialysis 75 BPM Sitting Heart Rate Post-Dialysis 70 BPM Standing Heart Rate Pre-Dialysis 80 BPM Standing Heart Rate Post-Dialysis 70 BPM Temperature Pre-Dialysis 101.1 degF Temperature Post -Dialysis 97.8 degF October 11, 2023 In-Center Hemodialysis Treatment 5971-24-59V66:53:56.000Z 2167-00-67T33:24:56.000Z BP Sitting (Pre-Dialysis) 163/69 mmHg BP Sitting (Post-Dialysis) 167/66 mmHg Concurrent Access: falseCentral Venous Catheter (CVC) Chest (Right) Arterial Sitting Heart Rate Pre-Dialysis 76 BPM Sitting H eart Rate Post-Dialysis 83 BPM Temperature Pre-Dialysis 97.9 degF Temperature Post -Dialysis 97.5 degF October 08, 2023 In-Center Hemodialysis Treatment 0701-70-19T61:49:00.000Z 0517-49-23Z81:25:08.000Z BP Sitting (Pre-Dialysis) 138/64 mmHg BP Sitting (Post-Dialysis) 144/63 mmHg Concurrent Access: falseCentral Venous Catheter (CVC) Chest (Right) Arterial BP Standing (Pre-Dialysis) 163/71 mmHg BP Standing (P ost-Dialysis) 141/67 mmHg Sitting Heart Rate Pre-Dialysis 76 BPM Sitting Heart Rate Post-Dialysis 71 BPM Standing Heart Rate Pre-Dialysis 80 BPM Standing Heart Rate Post-Dialysis 67 BPM Temperature Pre-Dialysis 97.7 degF Temperature Post -Dialysis 98.6 degF October 06, 2023 In-Center Hemodialysis Treatment 9768-33-95Z18:54:00.000Z 8169-27-05R76:25:28.000Z BP Sitting (Pre-Dialysis) 125/54 mmHg BP Sitting (Post-Dialysis) 149/67 mmHg Concurrent Access: falseCentral Venous Catheter (CVC) Chest (Right) Arterial BP Standing (Pre-Dialysis) 130/65 mmHg BP Standing (P ost-Dialysis) 151/62 mmHg Sitting Heart Rate Pre-Dialysis 69 BPM Sitting Heart Rate Post-Dialysis 66 BPM Standing Heart Rate Pre-Dialysis 72 BPM Standing Heart Rate Post-Dialysis 65 BPM Temperature Pre-Dialysis 97.8 degF Temperature Post -Dialysis 97.5 degF October 04, 2023 In-Center Hemodialysis Treatment 4378-41-98P93:51:00.000Z 6137-51-60L65:27:28.000Z BP Sitting (Pre-Dialysis) 141/62 mmHg BP Sitting (Post-Dialysis) 132/60 mmHg Concurrent Access: falseCentral Venous Catheter (CVC) Chest (Right) Arterial BP Standing (Pre-Dialysis) 161/62 mmHg BP Standing (P ost-Dialysis) 133/59 mmHg Sitting Heart Rate Pre-Dialysis 72 BPM Sitting Heart Rate Post-Dialysis 67 BPM Standing Heart Rate Pre-Dialysis 82 BPM Standing Heart Rate Post-Dialysis 66 BPM Temperature Pre-Dialysis 97.9 degF Temperature Post -Dialysis 97.5 degF October 01, 2023 In-Center Hemodialysis Treatment 2321-36-07K33:54:12.000Z 8019-89-02Y77:27:12.000Z BP Sitting (Pre-Dialysis) 158/62 mmHg BP Sitting (Post-Dialysis) 148/59 mmHg Concurrent Access: falseCentral Venous Catheter (CVC) Chest (Right) Arterial BP Standing (Pre-Dialysis) 151/62 mmHg BP Standing (P ost-Dialysis) 141/63 mmHg Sitting Heart Rate Pre-Dialysis 78 BPM Sitting Heart Rate Post-Dialysis 73 BPM Standing Heart Rate Pre-Dialysis 79 BPM Standing Heart Rate Post-Dialysis 74 BPM Temperature Pre-Dialysis 97.8 degF Temperature Post -Dialysis 97.8 degF September 29, 2023 In-Center Hemodialysis Treatment 2515-09-36V71:52:00.000Z 0345-71-07F14:25:12.000Z BP Sitting (Pre-Dialysis) 155/69 mmHg BP Sitting (Post-Dialysis) 145/106 mmHg Concurrent Access: falseCentral Venous Catheter (CVC) Chest (Right) Arterial BP Standing (Pre-Dialysis) 171/49 mmHg BP Standing (P ost-Dialysis) 143/104 mmHg Sitting Heart Rate Pre-Dialysis 75 BPM Sitting Heart Rate Post-Dialysis 55 BPM Standing Heart Rate Pre-Dialysis 75 BPM Standing Heart Rate Post-Dialysis 55 BPM Temperature Pre-Dialysis 97.8 degF Temperature Post -Dialysis 97.8 degF September 27, 2023 In-Center Hemodialysis Treatment 3791-96-45B66:57:08.000Z 5104-02-41X61:28:10.000Z BP Sitting (Pre-Dialysis) 151/69 mmHg BP Sitting (Post-Dialysis) 133/57 mmHg Concurrent Access: falseCentral Venous Catheter (CVC) Chest (Right) Arterial Sitting Heart Rate Pre-Dialysis 71 BPM Sitting H eart Rate Post-Dialysis 68 BPM Temperature Pre-Dialysis 97.9 degF Temperature Post -Dialysis 98.2 degF September 24, 2023 In-Center Hemodialysis Treatment 3483-32-01S09:44:00.000Z 2720-46-26M27:17:34.000Z BP Sitting (Pre-Dialysis) 156/60 mmHg BP Sitting (Post-Dialysis) 155/68 mmHg Concurrent Access: falseCentral Venous Catheter (CVC) Chest (Right) Arterial Sitting Heart Rate Pre-Dialysis 80 BPM BP Standing (Post-Dialysis) 144/64 mmHg Temperature Pre-Dialysis 98.5 degF Sitting Heart Ra te Post-Dialysis 69 BPM Standing Heart Rate Post-Stephanie lysis 73 BPM Temperature Post-Dialysis 97 .9 degF September 22, 2023 In-Center Hemodialysis Treatment 8629-59-49F04:53:34.000Z 4478-69-25F13:28:34.000Z BP Sitting (Pre-Dialysis) 123/57 mmHg BP Sitting (Post-Dialysis) 145/61 mmHg Concurrent Access: falseCentral Venous Catheter (CVC) Chest (Right) Arterial BP Standing (Pre-Dialysis) 155/80 mmHg BP Standing (P ost-Dialysis) 140/59 mmHg Sitting Heart Rate Pre-Dialysis 57 BPM Sitting Heart Rate Post-Dialysis 69 BPM Standing Heart Rate Pre-Dialysis 74 BPM Standing Heart Rate Post-Dialysis 67 BPM Temperature Pre-Dialysis 97.8 degF Temperature Post -Dialysis 97.8 degF September 20, 2023 In-Center Hemodialysis Treatment 2323-50-91D26:54:34.000Z 5073-17-37A42:25:34.000Z BP Sitting (Pre-Dialysis) 145/62 mmHg BP Sitting (Post-Dialysis) 134/64 mmHg Concurrent Access: falseCentral Venous Catheter (CVC) Chest (Right) Arterial BP Standing (Pre-Dialysis) 149/61 mmHg BP Standing (P ost-Dialysis) 134/55 mmHg Sitting Heart Rate Pre-Dialysis 76 BPM Sitting Heart Rate Post-Dialysis 61 BPM Standing Heart Rate Pre-Dialysis 78 BPM Standing Heart Rate Post-Dialysis 68 BPM Temperature Pre-Dialysis 98.6 degF Temperature Post -Dialysis 97.6 degF September 17, 2023 In-Center Hemodialysis Treatment 2706-45-18U04:52:00.000Z 1152-40-68B89:32:27.000Z BP Sitting (Pre-Dialysis) 130/73 mmHg BP Sitting (Post-Dialysis) 121/58 mmHg Concurrent Access: falseCentral Venous Catheter (CVC) Chest (Right) Arterial Sitting Heart Rate Pre-Dialysis 85 BPM BP Standing (Post-Dialysis) 124/62 mmHg Temperature Pre-Dialysis 97.9 degF Sitting Heart Ra te Post-Dialysis 70 BPM Standing Heart Rate Post-Stephanie lysis 72 BPM Temperature Post-Dialysis 97 .9 degF September 15, 2023 In-Center Hemodialysis Treatment 1086-04-11B84:49:00.000Z 8633-09-19X09:26:27.000Z BP Sitting (Pre-Dialysis) 172/50 mmHg BP Sitting (Post-Dialysis) 145/62 mmHg Concurrent Access: falseCentral Venous Catheter (CVC) Chest (Right) Arterial BP Standing (Pre-Dialysis) 162/66 mmHg Sitti ng Heart Rate Post-Dialysis 80 BPM Sitting Heart Rate Pre-Dialysis 83 BPM Temperatu re Post-Dialysis 97.9 degF Standing Heart Rate Pre-Dialysis 85 BPM Temperature Pre-Dialysis 97.9 degF September 13, 2023 In-Center Hemodialysis Treatment 8245-90-62S01:49:00.000Z 0541-57-44X35:24:27.000Z BP Sitting (Pre-Dialysis) 157/61 mmHg BP Sitting (Post-Dialysis) 132/57 mmHg Concurrent Access: falseCentral Venous Catheter (CVC) Chest (Right) Arterial BP Standing (Pre-Dialysis) 164/66 mmHg BP Standing (P ost-Dialysis) 132/62 mmHg Sitting Heart Rate Pre-Dialysis 69 BPM Sitting Heart Rate Post-Dialysis 65 BPM Standing Heart Rate Pre-Dialysis 78 BPM Standing Heart Rate Post-Dialysis 69 BPM Temperature Pre-Dialysis 97.6 degF Temperature Post -Dialysis 97.6 degF September 10, 2023 In-Center Hemodialysis Treatment 8992-70-79K08:51:00.000Z 3555-15-18V72:27:40.000Z BP Sitting (Pre-Dialysis) 157/68 mmHg BP Sitting (Post-Dialysis) 142/68 mmHg Concurrent Access: falseCentral Venous Catheter (CVC) Chest (Right) Arterial BP Standing (Pre-Dialysis) 167/71 mmHg BP Standing (P ost-Dialysis) 141/65 mmHg Sitting Heart Rate Pre-Dialysis 79 BPM Sitting Heart Rate Post-Dialysis 68 BPM Standing Heart Rate Pre-Dialysis 80 BPM Standing Heart Rate Post-Dialysis 72 BPM Temperature Pre-Dialysis 97.2 degF Temperature Post -Dialysis 98 degF September 08, 2023 In-Center Hemodialysis Treatment [id number]:50:39.000Z 5336-70-80U19:21:40.000Z BP Sitting (Pre-Dialysis) 191/111 mmHg BP Sitting (Post-Dialysis) 153/72 mmHg Concurrent Access: falseCentral Venous Catheter (CVC) Chest (Right) Arterial Sitting Heart Rate Pre-Dialysis 70 BPM BP Standing (Post-Dialysis) 164/80 mmHg Temperature Pre-Dialysis 97.2 degF Sitting Heart Ra te Post-Dialysis 78 BPM Standing Heart Rate Post-Stephanie lysis 74 BPM Temperature Post-Dialysis 97 .8 degF September 06, 2023 In-Center Hemodialysis Treatment 4428-39-92M61:49:00.000Z 7968-91-36G48:23:45.000Z BP Sitting (Pre-Dialysis) 176/67 mmHg BP Sitting (Post-Dialysis) 146/67 mmHg Concurrent Access: falseCentral Venous Catheter (CVC) Chest (Right) Arterial Sitting Heart Rate Pre-Dialysis 86 BPM BP Standing (Post-Dialysis) 137/66 mmHg Temperature Pre-Dialysis 97.9 degF Sitting Heart Ra te Post-Dialysis 76 BPM Standing Heart Rate Post-Stephanie lysis 76 BPM Temperature Post-Dialysis 97 .9 degF September 03, 2023 In-Center Hemodialysis Treatment 6899-46-39M59:52:00.000Z 8454-39-50E32:26:42.000Z BP Sitting (Pre-Dialysis) 148/66 mmHg BP Sitting (Post-Dialysis) 148/56 mmHg Concurrent Access: falseCentral Venous Catheter (CVC) Chest (Right) Arterial Sitting Heart Rate Pre-Dialysis 85 BPM BP Standing (Post-Dialysis) 123/63 mmHg Temperature Pre-Dialysis 97.8 degF Sitting Heart Ra te Post-Dialysis 71 BPM Standing Heart Rate Post-Stephanie lysis 71 BPM Temperature Post-Dialysis 97 degF September 01, 2023 In-Center Hemodialysis Treatment 2490-24-45X56:57:49.000Z 1567-78-68W04:27:50.000Z BP Sitting (Pre-Dialysis) 150/68 mmHg BP Sitting (Post-Dialysis) 136/67 mmHg Concurrent Access: falseCentral Venous Catheter (CVC) Chest (Right) Arterial Sitting Heart Rate Pre-Dialysis 85 BPM BP Standing (Post-Dialysis) 140/68 mmHg Temperature Pre-Dialysis 97.9 degF Sitting Heart Ra te Post-Dialysis 70 BPM Standing Heart Rate Post-Stephanie lysis 64 BPM Temperature Post-Dialysis 97 .1 degF August 30, 2023 In-Center Hemodialysis Treatment [id number]:00.000Z [id number]:23:50.000Z BP Sitting (Pre-Dialysis) 139/63 mmHg BP Sitting (Post-Dialysis) 145/66 mmHg Concurrent Access: falseCentral Venous Catheter (CVC) Chest (Right) Arterial Sitting Heart Rate Pre-Dialysis 80 BPM Sitting H eart Rate Post-Dialysis 72 BPM Temperature Pre-Dialysis 97.6 degF Temperature Post -Dialysis 97.6 degF August 27, 2023 In-Center Hemodialysis Treatment [id number] [id number] BP Sitting (Pre-Dialysis) 153/56 mmHg BP Sitting (Post-Dialysis) 140/61 mmHg Concurrent Access: falseCentral Venous Catheter (CVC) Chest (Right) Arterial Sitting Heart Rate Pre-Dialysis 74 BPM BP Standing (Post-Dialysis) 138/66 mmHg Temperature Pre-Dialysis 97.8 degF Sitting Heart Ra te Post-Dialysis 75 BPM Standing Heart Rate Post-Stephanie lysis 70 BPM Temperature Post-Dialysis 97 .8 degF August 25, 2023 In-Center Hemodialysis Treatment [id number]:51:00.000Z [id number]:24:53.000Z BP Sitting (Pre-Dialysis) 157/58 mmHg BP Sitting (Post-Dialysis) 140/62 mmHg Concurrent Access: falseCentral Venous Catheter (CVC) Chest (Right) Arterial BP Standing (Pre-Dialysis) 153/65 mmHg BP Standing (P ost-Dialysis) 152/66 mmHg Sitting Heart Rate Pre-Dialysis 71 BPM Sitting Heart Rate Post-Dialysis 72 BPM Standing Heart Rate Pre-Dialysis 71 BPM Standing Heart Rate Post-Dialysis 71 BPM Temperature Pre-Dialysis 97.6 degF Temperature Post -Dialysis 97.6 degF August 23, 2023 In-Center Hemodialysis Treatment [id number]:53.000Z [id number]:26:53.000Z BP Sitting (Pre-Dialysis) 152/69 mmHg BP Sitting (Post-Dialysis) 155/78 mmHg Concurrent Access: falseCentral Venous Catheter (CVC) Chest (Right) Arterial BP Standing (Pre-Dialysis) 166/62 mmHg BP Standing (P ost-Dialysis) 140/67 mmHg Sitting Heart Rate Pre-Dialysis 71 BPM Sitting Heart Rate Post-Dialysis 68 BPM Standing Heart Rate Pre-Dialysis 79 BPM Standing Heart Rate Post-Dialysis 70 BPM Temperature Pre-Dialysis 97.6 degF August 20, 2023 In-Center Hemodialysis Treatment [id number]:25:11.000Z BP Sitting (Pre-Dialysis) 144/67 mmHg BP Sitting (Post-Dialysis) 140/69 mmHg Concurrent Access: falseCentral Venous Catheter (CVC) Chest (Right) Arterial Sitting Heart Rate Pre-Dialysis 81 BPM BP Standing (Post-Dialysis) 143/72 mmHg Temperature Pre-Dialysis 97.9 degF Sitting Heart Ra te Post-Dialysis 65 BPM Standing Heart Rate Post-Stephanie lysis 62 BPM Temperature Post-Dialysis 97 .9 degF August 18, 2023 In-Center Hemodialysis Treatment [id number]:54:11.000Z [id number]:26:11.000Z BP Sitting (Pre-Dialysis) 128/63 mmHg BP Sitting (Post-Dialysis) 139/57 mmHg Concurrent Access: falseCentral Venous Catheter (CVC) Chest (Right) Arterial BP Standing (Pre-Dialysis) 154/66 mmHg BP Standing (P ost-Dialysis) 148/69 mmHg Sitting Heart Rate Pre-Dialysis 75 BPM Sitting Heart Rate Post-Dialysis 76 BPM Standing Heart Rate Pre-Dialysis 91 BPM Standing Heart Rate Post-Dialysis 71 BPM Temperature Pre-Dialysis 97.8 degF Temperature Post -Dialysis 97.2 degF August 16, 2023 In-Center Hemodialysis Treatment [id number]:03:11.000Z [id number]:09:12.000Z BP Sitting (Pre-Dialysis) 140/66 mmHg BP Sitting (Post-Dialysis) 148/87 mmHg Concurrent Access: falseCentral Venous Catheter (CVC) Chest (Right) Arterial BP Standing (Pre-Dialysis) 150/74 mmHg Sitti ng Heart Rate Post-Dialysis 77 BPM Sitting Heart Rate Pre-Dialysis 72 BPM Temperatu re Post-Dialysis 97.6 degF Standing Heart Rate Pre-Dialysis 79 BPM Temperature Pre-Dialysis 97.6 degF August 13, 2023 In-Center Hemodialysis Treatment [id number]:58:00.000Z [id number]:19.000Z BP Sitting (Pre-Dialysis) 138/58 mmHg BP Sitting (Post-Dialysis) 167/71 mmHg Concurrent Access: falseCentral Venous Catheter (CVC) Chest (Right) Arterial BP Standing (Pre-Dialysis) 140/68 mmHg BP Standing (P ost-Dialysis) 147/62 mmHg Sitting Heart Rate Pre-Dialysis 72 BPM Sitting Heart Rate Post-Dialysis 65 BPM Standing Heart Rate Pre-Dialysis 74 BPM Standing Heart Rate Post-Dialysis 76 BPM Temperature Pre-Dialysis 98.1 degF Temperature Post -Dialysis 97.8 degF August 11, 2023 In-Center Hemodialysis Treatment [id number]:26.000Z [id number]:26.000Z BP Sitting (Pre-Dialysis) 138/61 mmHg BP Sitting (Post-Dialysis) 131/58 mmHg Concurrent Access: falseCentral Venous Catheter (CVC) Chest (Right) Arterial BP Standing (Pre-Dialysis) 144/65 mmHg BP Standing (P ost-Dialysis) 141/61 mmHg Sitting Heart Rate Pre-Dialysis 65 BPM Sitting Heart Rate Post-Dialysis 71 BPM Standing Heart Rate Pre-Dialysis 72 BPM Standing Heart Rate Post-Dialysis 68 BPM Temperature Pre-Dialysis 98.1 degF August 09, 2023 In-Center Hemodialysis Treatment [id number]:59:26.000Z [id number]:18:27.000Z BP Sitting (Pre-Dialysis) 129/66 mmHg BP Sitting (Post-Dialysis) 108/50 mmHg Concurrent Access: falseCentral Venous Catheter (CVC) Chest (Right) Arterial BP Standing (Pre-Dialysis) 150/61 mmHg BP Standing (P ost-Dialysis) 123/53 mmHg Sitting Heart Rate Pre-Dialysis 72 BPM Sitting Heart Rate Post-Dialysis 64 BPM Standing Heart Rate Pre-Dialysis 79 BPM Standing Heart Rate Post-Dialysis 70 BPM Temperature Pre-Dialysis 97.6 degF Temperature Post -Dialysis 97.9 degF August 06, 2023 In-Center Hemodialysis Treatment [id number]:17.000Z [id number]:07:17.000Z BP Sitting (Pre-Dialysis) 124/67 mmHg BP Sitting (Post-Dialysis) 121/75 mmHg Concurrent Access: falseCentral Venous Catheter (CVC) Chest (Right) Arterial BP Standing (Pre-Dialysis) 137/105 mmHg BP Standing (P ost-Dialysis) 119/48 mmHg Sitting Heart Rate Pre-Dialysis 71 BPM Sitting Heart Rate Post-Dialysis 76 BPM Standing Heart Rate Pre-Dialysis 60 BPM Standing Heart Rate Post-Dialysis 76 BPM Temperature Pre-Dialysis 97.8 degF Temperature Post -Dialysis 97.6 degF May 30, 2023 [facility] May 29, 2023 [facility] May 28, 2023 [facility] May 27, 2023 [facility] May 26, 2023 [facility] BP Sitting (Pre-Dialysis) 134/61 mmHg Sitting Heart Rate Pre-Dialysis 78 BPM Temperature Pre-Dialysis 99.1 degF Weight Pre-Dialysis 107.2 kg May 26, 2023 [facility] May 25, 2023 [facility] May 24, 2023 [facility] May 23, 2023 [facility] May 22, 2023 [facility] May 21, 2023 [facility] May 20, 2023 [facility] May 19, 2023 [facility] May 18, 2023 [facility] May 17, 2023 [facility] May 16, 2023 [facility] May 15, 2023 [facility] May 14, 2023 [facility] May 13, 2023 [facility] May 12, 2023 [facility] May 11, 2023 [facility] BP Sitting (Pre-Dialysis) 163/69 mmHg Sitting Heart Rate Pre-Dialysis 74 BPM Temperature Pre-Dialysis 99.1 degF Weight Pre-Dialysis 109 kg May 11, 2023 [facility] May 09, 2023 [facility] May 08, 2023 [facility] May 07, 2023 [facility] May 06, 2023 [facility] May 05, 2023 [facility] May 04, 2023 [facility] May 03, 2023 [facility] May 02, 2023 [facility] May 01, 2023 [facility] April 30, 2023 [facility] April 29, 2023 [facility] April 28, 2023 [facility] April 27, 2023 [facility] April 26, 2023 [facility] April 25, 2023 [facility] April 24, 2023 [facility] April 23, 2023 [facility] April 22, 2023 [facility] April 20, 2023 [facility] April 19, 2023 [facility] BP Sitting (Pre-Dialysis) 144/60 mmHg Sitting Heart Rate Pre-Dialysis 78 BPM Temperature Pre-Dialysis 98.8 degF Weight Pre-Dialysis 108.4 kg April 19, 2023 [facility] April 18, 2023 [facility] April 17, 2023 [facility] April 16, 2023 [facility] April 15, 2023 [facility] April 14, 2023 [facility] April 13, 2023 [facility] BP Sitting (Pre-Dialysis) 157/49 mmHg Sitting Heart Rate Pre-Dialysis 77 BPM Temperature Pre-Dialysis 98.7 degF Weight Pre-Dialysis 105.7 kg April 13, 2023 [facility] April 12, 2023 [facility] April 11, 2023 [facility] April 10, 2023 [facility] April 09, 2023 [facility] April 08, 2023 [facility] April 07, 2023 [facility] April 06, 2023 [facility] April 05, 2023 [facility] April 04, 2023 [facility] April 03, 2023 [facility] April 02, 2023 [facility] April 01, 2023 [facility] March 31, 2023 [facility] March 30, 2023 [facility] March 29, 2023 [facility] March 28, 2023 [facility] March 27, 2023 [facility] March 26, 2023 [facility] March 25, 2023 [facility] March 24, 2023 [facility] BP Sitting (Pre-Dialysis) 144/86 mmHg Sitting Heart Rate Pre-Dialysis 84 BPM Temperature Pre-Dialysis 98.6 degF Weight Pre-Dialysis 106.7 kg March 24, 2023 [facility] March 23, 2023 [facility] March 22, 2023 [facility] BP Sitting (Pre-Dialysis) 160/64 mmHg Sitting Heart Rate Pre-Dialysis 89 BPM Temperature Pre-Dialysis 98.6 degF Weight Pre-Dialysis 107.2 kg March 22, 2023 [facility] March 21, 2023 [facility] March 20, 2023 [facility] March 19, 2023 [facility] March 18, 2023 [facility] March 17, 2023 [facility] March 16, 2023 [facility] March 15, 2023 [facility] March 07, 2023 [facility] March 06, 2023 [facility] March 05, 2023 [facility] March 03, 2023 [facility] March 02, 2023 [facility] March 01, 2023 [facility] February 28, 2023 [facility] February 27, 2023 [facility] February 26, 2023 [facility] February 25, 2023 [facility] February 24, 2023 [facility] February 23, 2023 [facility] February 22, 2023 [facility] February 21, 2023 [facility] February 20, 2023 [facility] February 19, 2023 [facility] February 18, 2023 [facility] February 17, 2023 [facility] February 16, 2023 [facility] February 15, 2023 [facility] BP Sitting (Pre-Dialysis) 156/60 mmHg Sitting Heart Rate Pre-Dialysis 75 BPM Temperature Pre-Dialysis 98.9 degF Weight Pre-Dialysis 110.7 kg February 15, 2023 [facility] February 14, 2023 [facility] February 13, 2023 [facility] February 12, 2023 [facility] February 11, 2023 [facility] February 10, 2023 [facility] February 09, 2023 [facility] February 08, 2023 [facility] BP Sitting (Pre-Dialysis) 112/66 mmHg Sitting Heart Rate Pre-Dialysis 71 BPM Temperature Pre-Dialysis 98.4 degF Weight Pre-Dialysis 109.2 kg February 08, 2023 [facility] February 07, 2023 [facility] February 06, 2023 [facility] February 04, 2023 [facility] February 03, 2023 [facility] February 01, 2023 [facility] January 31, 2023 [facility] January 30, 2023 [facility] January 29, 2023 [facility] January 28, 2023 [facility] January 27, 2023 [facility] January 26, 2023 [facility] January 25, 2023 [facility] January 24, 2023 [facility] January 23, 2023 [facility] January 22, 2023 [facility] January 21, 2023 [facility] January 20, 2023 [facility] January 19, 2023 [facility] January 18, 2023 [facility] January 17, 2023 [facility] January 16, 2023 [facility] January 15, 2023 [facility] January 14, 2023 [facility] January 13, 2023 [facility] BP Sitting (Pre-Dialysis) 119/68 mmHg Sitting Heart Rate Pre-Dialysis 75 BPM Temperature Pre-Dialysis 98.1 degF Weight Pre-Dialysis 109.7 kg January 13, 2023 [facility] January 12, 2023 [facility] January 11, 2023 [facility] January 10, 2023 [facility] January 09, 2023 [facility] January 08, 2023 [facility] January 07, 2023 [facility] January 06, 2023 [facility] January 05, 2023 [facility] January 04, 2023 [facility] January 03, 2023 [facility] January 02, 2023 [facility] January 01, 2023 [facility] December 31, 2022 [facility] December 30, 2022 [facility] December 29, 2022 [facility] December 28, 2022 [facility] December 27, 2022 [facility] December 26, 2022 [facility] December 25, 2022 [facility] December 24, 2022 [facility] December 23, 2022 [facility] December 22, 2022 [facility] December 21, 2022 [facility] BP Sitting (Pre-Dialysis) 133/83 mmHg Sitting Heart Rate Pre-Dialysis 71 BPM Temperature Pre-Dialysis 97.4 degF Weight Pre-Dialysis 111.7 kg December 21, 2022 [facility] December 20, 2022 [facility] December 19, 2022 [facility] December 18, 2022 [facility] December 17, 2022 [facility] December 16, 2022 [facility] December 15, 2022 [facility] December 14, 2022 [facility] December 13, 2022 [facility] December 12, 2022 [facility] December 11, 2022 [facility] December 10, 2022 [facility] December 09, 2022 [facility] December 08, 2022 [facility] BP Sitting (Pre-Dialysis) 156/80 mmHg Sitting Heart Rate Pre-Dialysis 64 BPM Temperature Pre-Dialysis 98.7 degF Weight Pre-Dialysis 111 kg December 08, 2022 [facility] December 07, 2022 [facility] December 06, 2022 [facility] December 05, 2022 [facility] December 04, 2022 [facility] December 03, 2022 [facility] December 02, 2022 [facility] December 01, 2022 [facility] November 30, 2022 [facility] November 29, 2022 [facility] November 28, 2022 [facility] November 27, 2022 [facility] November 26, 2022 [facility] November 25, 2022 [facility] November 24, 2022 [facility] November 23, 2022 [facility] November 22, 2022 [facility] November 21, 2022 [facility] November 20, 2022 [facility] November 19, 2022 [facility] November 18, 2022 [facility] November 17, 2022 [facility] November 16, 2022 [facility] BP Sitting (Pre-Dialysis) 126/66 mmHg Sitting Heart Rate Pre-Dialysis 64 BPM Temperature Pre-Dialysis 98.1 degF Weight Pre-Dialysis 112.7 kg November 16, 2022 [facility] November 15, 2022 [facility] November 14, 2022 [facility] November 13, 2022 [facility] November 12, 2022 [facility] November 11, 2022 [facility] November 10, 2022 [facility] November 09, 2022 [facility] November 08, 2022 [facility] BP Sitting (Pre-Dialysis) 129/64 mmHg Sitting Heart Rate Pre-Dialysis 66 BPM Temperature Pre-Dialysis 97.1 degF Weight Pre-Dialysis 110.7 kg November 08, 2022 [facility] November 07, 2022 [facility] November 06, 2022 [facility] November 05, 2022 [facility] November 04, 2022 [facility] November 03, 2022 [facility] November 02, 2022 [facility] November 01, 2022 [facility] October 31, 2022 [facility] October 30, 2022 [facility] October 29, 2022 [facility] October 28, 2022 [facility] October 27, 2022 [facility] October 26, 2022 [facility] October 25, 2022 [facility] October 24, 2022 [facility] October 23, 2022 [facility] October 22, 2022 [facility] October 21, 2022 [facility] October 20, 2022 [facility] October 19, 2022 [facility] October 18, 2022 [facility] October 17, 2022 [facility] October 16, 2022 [facility] October 15, 2022 [facility] October 14, 2022 [facility] October 13, 2022 [facility] October 12, 2022 [facility] BP Sitting (Pre-Dialysis) 116/65 mmH g Sitting Heart Rate Pre-Dialysis 81 BPM Temperature Pre-Dialysis 98.3 degF Weight Pre-Dialysis 113 kg October 12, 2022 [facility] October 11, 2022 [facility] October 09, 2022 [facility] October 08, 2022 [facility] October 07, 2022 [facility] October 06, 2022 [facility] October 05, 2022 [facility] October 04, 2022 [facility] BP Sitting (Pre-Dialysis) 125/87 mmHg Sitting Heart Rate Pre-Dialysis 80 BPM Temperature Pre-Dialysis 97.3 degF Weight Pre-Dialysis 111.7 kg October 04, 2022 [facility] October 03, 2022 [facility] October 02, 2022 [facility] October 01, 2022 [facility] September 30, 2022 [facility] September 29, 2022 [facility] September 28, 2022 [facility] September 27, 2022 [facility] September 26, 2022 [facility] September 25, 2022 [facility] September 24, 2022 [facility] September 23, 2022 [facility] September 22, 2022 [facility] September 21, 2022 [facility] September 20, 2022 [facility] September 19, 2022 [facility] September 18, 2022 [facility] September 17, 2022 [facility] September 16, 2022 [facility] September 15, 2022 [facility] September 14, 2022 [facility] September 13, 2022 [facility] September 12, 2022 [facility] September 11, 2022 [facility] September 10, 2022 [facility] September 09, 2022 [facility] BP Sitting (Pre-Dialysis) 123/56 mmHg Sitting Heart Rate Pre-Dialysis 76 BPM Temperature Pre-Dialysis 98.1 degF Weight Pre-Dialysis 112.7 kg September 09, 2022 [facility] September 08, 2022 [facility] September 07, 2022 [facility] September 05, 2022 [facility] September 04, 2022 [facility] September 03, 2022 [facility] September 02, 2022 [facility] September 01, 2022 [facility] August 31, 2022 [facility] August 30, 2022 [facility] August 29, 2022 [facility] August 28, 2022 [facility] August 27, 2022 [facility] August 26, 2022 [facility] August 25, 2022 [facility] August 24, 2022 [facility] August 22, 2022 [facility] August 21, 2022 [facility] August 20, 2022 [facility] August 19, 2022 [facility] August 18, 2022 [facility] August 17, 2022 [facility] August 16, 2022 [facility] August 15, 2022 [facility] August 14, 2022 [facility] August 13, 2022 [facility] August 12, 2022 [facility] BP Sitting (Pre-Dialysis) 116/61 mmHg Sitting Heart Rate Pre-Dialysis 86 BPM Temperature Pre-Dialysis 98.6 degF Weight Pre-Dialysis 111.7 kg August 12, 2022 [facility] August 11, 2022 [facility] August 10, 2022 [facility] August 09, 2022 [facility] August 08, 2022 [facility] August 07, 2022 [facility] August 06, 2022 [facility] August 05, 2022 [facility] August 04, 2022 [facility] August 03, 2022 [facility] August 02, 2022 [facility] August 01, 2022 [facility] July 31, 2022 [facility] July 30, 2022 [facility] July 29, 2022 [facility] July 28, 2022 [facility] July 27, 2022 [facility] July 26, 2022 [facility] July 25, 2022 [facility] July 24, 2022 [facility] July 23, 2022 [facility] July 22, 2022 [facility] July 21, 2022 [facility] July 20, 2022 [facility] BP Sitting (Pre-Dialysis) 144/67 mmHg Sitting Heart Rate Pre-Dialysis 76 BPM Temperature Pre-Dialysis 97.9 degF Weight Pre-Dialysis 111.7 kg July 20, 2022 [facility] July 19, 2022 [facility] July 18, 2022 [facility] July 17, 2022 [facility] July 16, 2022 [facility] July 15, 2022 [facility] July 14, 2022 [facility] July 13, 2022 [facility] July 12, 2022 [facility] BP Sitting (Pre-Dialysis) 100/59 mmHg Sitting Heart Rate Pre-Dialysis 75 BPM Temperature Pre-Dialysis 98.9 degF Weight Pre-Dialysis 112.7 kg July 12, 2022 [facility] July 11, 2022 [facility] July 10, 2022 [facility] July 09, 2022 [facility] July 08, 2022 [facility] July 07, 2022 [facility] July 06, 2022 [facility] July 05, 2022 [facility] July 04, 2022 [facility] July 03, 2022 [facility] July 02, 2022 [facility] July 01, 2022 [facility] June 30, 2022 [facility] June 29, 2022 [facility] June 28, 2022 [facility] June 27, 2022 [facility] June 26, 2022 [facility] June 25, 2022 [facility] June 24, 2022 [facility] BP Sitting (Pre-Dialysis) 119/65 mmHg Sitting Heart Rate Pre-Dialysis 79 BPM Temperature Pre-Dialysis 98.2 degF Weight Pre-Dialysis 115 kg June 24, 2022 [facility] June 23, 2022 [facility] June 22, 2022 [facility] June 21, 2022 [facility] June 20, 2022 [facility] June 19, 2022 [facility] June 18, 2022 [facility] June 17, 2022 [facility] June 16, 2022 [facility] June 15, 2022 [facility] BP Sitting (Pre-Dialysis) 144/58 mmHg Sitting Heart Rate Pre-Dialysis 75 BPM Temperature Pre-Dialysis 97.8 degF Weight Pre-Dialysis 113.6 kg June 15, 2022 [facility] June 14, 2022 [facility] June 13, 2022 [facility] June 12, 2022 [facility] June 11, 2022 [facility] June 10, 2022 [facility] BP Sitting (Pre-Dialysis) 140/60 mmHg Sitting Heart Rate Pre-Dialysis 86 BPM Temperature Pre-Dialysis 97.7 degF Weight Pre-Dialysis 111.7 kg June 10, 2022 [facility] 2022 [facility] June 08, 2022 [facility] June 07, 2022 [facility] June 06, 2022 [facility] June 05, 2022 [facility] June 04, 2022 [facility] June 03, 2022 [facility] June 02, 2022 [facility] June 01, 2022 [facility] May 31, 2022 [facility] BP Sitting (Pre-Dialysis) 132/62 mmHg Sitting Heart Rate Pre-Dialysis 82 BPM Temperature Pre-Dialysis 98.2 degF Weight Pre-Dialysis 114.5 kg May 31, 2022 [facility] May 30, 2022 [facility] May 29, 2022 [facility] May 28, 2022 [facility] May 27, 2022 [facility] May 26, 2022 [facility] May 25, 2022 [facility] May 24, 2022 [facility] May 23, 2022 [facility] May 22, 2022 [facility] May 21, 2022 [facility] May 20, 2022 [facility] May 19, 2022 [facility] May 18, 2022 [facility] BP Sitting (Pre-Dialysis) 146/70 mmHg Sitting Heart Rate Pre-Dialysis 81 BPM Temperature Pre-Dialysis 98.2 degF Weight Pre-Dialysis 113.4 kg May 18, 2022 [facility] May 17, 2022 [facility] May 16, 2022 [facility] May 15, 2022 [facility] May 14, 2022 [facility] May 13, 2022 [facility] BP Sitting (Pre-Dialysis) 112/57 mmHg Sitting Heart Rate Pre-Dialysis 68 BPM Temperature Pre-Dialysis 98.2 degF Weight Pre-Dialysis 116.3 kg May 13, 2022 [facility] May 12, 2022 [facility] May 11, 2022 [facility] May 10, 2022 [facility] May 09, 2022 [facility] May 08, 2022 [facility] May 07, 2022 [facility] May 06, 2022 [facility] May 05, 2022 [facility] May 04, 2022 [facility] May 03, 2022 [facility] May 02, 2022 [facility] May 01, 2022 [facility] April 30, 2022 [facility] April 29, 2022 [facility] April 28, 2022 [facility] April 27, 2022 [facility] April 26, 2022 [facility] April 25, 2022 [facility] April 24, 2022 [facility] April 23, 2022 [facility] April 22, 2022 [facility] April 21, 2022 [facility] April 20, 2022 [facility] BP Sitting (Pre-Dialysis) 134/64 mmHg Sitting Heart Rate Pre-Dialysis 74 BPM Temperature Pre-Dialysis 98.1 degF Weight Pre-Dialysis 116.3 kg April 20, 2022 [facility] April 19, 2022 [facility] April 18, 2022 [facility] April 17, 2022 [facility] April 16, 2022 [facility] April 15, 2022 [facility] April 14, 2022 [facility] April 13, 2022 [facility] April 12, 2022 [facility] April 11, 2022 [facility] April 10, 2022 [facility] April 09, 2022 [facility] April 08, 2022 [facility] BP Sitting (Pre-Dialysis) 143/64 mmHg Sitting Heart Rate Pre-Dialysis 67 BPM Temperature Pre-Dialysis 98.3 degF Weight Pre-Dialysis 110 kg April 08, 2022 [facility] April 07, 2022 [facility] April 06, 2022 [facility] April 05, 2022 [facility] April 04, 2022 [facility] April 03, 2022 [facility] April 02, 2022 [facility] April 01, 2022 [facility] March 31, 2022 [facility] March 30, 2022 [facility] BP Sitting (Pre-Dialysis) 140/63 mmHg Sitting Heart Rate Pre-Dialysis 81 BPM Temperature Pre-Dialysis 98.4 degF Weight Pre-Dialysis 110.8 kg March 30, 2022 [facility] March 29, 2022 [facility] March 28, 2022 [facility] March 27, 2022 [facility] March 26, 2022 [facility] March 25, 2022 [facility] March 24, 2022 [facility] March 23, 2022 [facility] BP Sitting (Pre-Dialysis) 131/81 mmHg Sitting Heart Rate Pre-Dialysis 82 BPM Temperature Pre-Dialysis 98.6 degF Weight Pre-Dialysis 115.1 kg March 23, 2022 [facility] March 22, 2022 [facility] March 21, 2022 [facility] March 20, 2022 [facility] March 19, 2022 [facility] March 18, 2022 [facility] March 17, 2022 [facility] March 16, 2022 [facility] March 15, 2022 [facility] March 14, 2022 [facility] March 13, 2022 [facility] March 12, 2022 [facility] March 11, 2022 [facility] BP Sitting (Pre-Dialysis) 131/81 mmHg Sitting Heart Rate Pre-Dialysis 82 BPM Temperature Pre-Dialysis 98.6 degF Weight Pre-Dialysis 112 kg March 11, 2022 [facility] March 10, 2022 [facility] March 09, 2022 [facility] March 08, 2022 [facility] March 07, 2022 [facility] March 06, 2022 [facility] March 05, 2022 [facility] March 04, 2022 [facility] March 03, 2022 [facility] March 02, 2022 [facility] March 01, 2022 [facility] February 28, 2022 [facility] February 27, 2022 [facility] February 26, 2022 [facility] February 24, 2022 [facility] BP Sitting (Pre-Dialysis) 145/82 mmHg Sitting Heart Rate Pre-Dialysis 62 BPM Temperature Pre-Dialysis 97.5 degF Weight Pre-Dialysis 112.3 kg February 24, 2022 [facility] February 23, 2022 [facility] February 22, 2022 [facility] February 21, 2022 [facility] February 20, 2022 [facility] February 19, 2022 [facility] February 18, 2022 [facility] BP Sitting (Pre-Dialysis) 132/88 mmHg Sitting Heart Rate Pre-Dialysis 60 BPM Temperature Pre-Dialysis 97.6 degF Weight Pre-Dialysis 113.5 kg February 18, 2022 [facility] February 17, 2022 [facility] February 16, 2022 [facility] February 15, 2022 [facility] February 14, 2022 [facility] February 13, 2022 [facility] February 12, 2022 [facility] February 11, 2022 [facility] BP Sitting (Pre-Dialysis) 140/66 mmHg Sitting Heart Rate Pre-Dialysis 58 BPM Temperature Pre-Dialysis 98.6 degF Weight Pre-Dialysis 114.7 kg February 11, 2022 [facility] February 09, 2022 [facility] February 08, 2022 [facility] February 07, 2022 [facility] February 06, 2022 [facility] February 05, 2022 [facility] February 04, 2022 [facility] February 03, 2022 [facility] February 02, 2022 [facility] February 01, 2022 [facility] January 30, 2022 [facility] January 29, 2022 [facility] January 28, 2022 [facility] January 27, 2022 [facility] BP Sitting (Pre-Dialysis) 147/65 mmHg Sitting Heart Rate Pre-Dialysis 71 BPM Temperature Pre-Dialysis 97.4 degF Weight Pre-Dialysis 111.5 kg January 27, 2022 [facility] January 26, 2022 [facility] January 25, 2022 [facility] January 24, 2022 [facility] January 23, 2022 [facility] January 22, 2022 [facility] January 21, 2022 [facility] January 19, 2022 [facility] BP Sitting (Pre-Dialysis) 126/57 mmHg BP Standing (Pre-Dialysis) 120/80 mmHg Sitting Heart Rate Pre-Dialysis 65 BPM Standing Heart Rate Pre-Dialysis 60 BPM Temperature Pre-Dialysis 98.4 degF Weight Pre-Dialysis 110.9 kg January 19, 2022 [facility] January 18, 2022 [facility] January 17, 2022 [facility] DIALYSIS ORDER Dialysis Procedure Orders Type of Dialysis Procedure Order Order Date/Time Observations In-Center Hemodialysis Treatment 2024 Target Weight 106.5 kg Dialysate Flow Rate 500 mL/min Blood Flow Rate 400 mL/min Treatment Time 210 min(total) Max UF Rate 13 mL/kg/hr Base Sodium Dialysate Base Sodium 137 mE q/L dialysate_temp 36.5 C BiCarb Dialysate BiCarbonate 37 meq/L Access Concurrent No Arterial Access [facility] ([facility]) (Chest (Right)) Venous Access [facility] (CV[facility]) (Chest (Right)) Dialyzer Tripro [place] Pablo 15H 126 4 [email or web address] Dialysate Bath Potassium Potassium 3 mEq /L Dialysate Bath Calcium Calcium 2.5 mEq/L In-Center Hemodialysis TreatmentMay 14, 2024 Observation Value Target Weight 104.5 kg Dialysate Flow Rate 500 mL/min Blood Flow Rate 400 mL/min Treatment Time 210 min(total) Max UF Rate 13 mL/kg/hr Base Sodium Dialysate Base Sodium 137 mE q/L dialysate_temp 36.5 C BiCarb Dialysate BiCarbonate 37 meq/L Access Concurrent No Arterial Access [facility] ([facility]) (Chest (Right)) Venous Access [facility] [facility] (CV[facility]) (Chest (Right)) Dialyzer Nipro Elisio 15H 126 4 [email or web address] Dialysate Bath Potassium Potassium 3 mEq /L Dialysate Bath Calcium Calcium 2.5 mEq/L Results Adequacy Description Draw Date Result/Unit Status Ref Range Result Comments URR% 2024-11-09 21:23:35 74 % F DIALYZER FLOW-QD 2024-11-09 21:23:35 500 mL/min F Dialyzer MILDRED 2024-11-09 21:23:35 1264 Calc F LENGTH OF DIALYSIS 2024-11-09 21:23:35 209 min F PATIENT AGE 2024-11-09 21:23:35 84 Years F BSA HERON 2024-11-09 21:23:35 2.21 sq m F WEIGHT - POST DAY 1 2024-11-09 21:23:35 108.9 kg F WEIGHT - PRE DAY 1 2024-11-09 21:23:35 111.4 kg F HEIGHT IN INCHES 2024-11-09 21:23:35 69 Inches F WEIGHT (KG) 2024-11-09 21:23:35 106.5 kg F PRESCRIBED DAYS/WEEK 2024-11-09 21:23:35 3 Day/Wk F VT (KT/V TX VOL) 2024-11-09 21:23:35 35 L F Residual kt/v 2024-11-09 21:23:35 F VM (KT/V MEAN VOL) 2024-11-09 21:23:35 37.2 F KT/V PRESCRIBED 2024-11-09 21:23:35 1.38 F Total Kt/V 2024-11-09 21:23:35 1.62 F nPCR 2024-11-09 21:23:35 0.92 G/KG/D F AMPUTATE FACTOR 2024-11-09 21:23:35 0 F TBW ([place]) 2024-11-09 21:23:35 49.89 Liters F eKt/V 2024-11-09 21:23:35 1.37 F spKt/V 2024-11-09 21:23:35 1.62 F Std Renal KT/V 2024-11-09 21:23:35 N/A F stdKt/V (DIAL) 2024-11-09 21:23:35 N/A F TOTAL HOURS/WEEK DIALYSIS 2024-11-09 21:23:35 10 hrs F stdKT/V Total 2024-11-09 21:23:35 N/A F CURRENT KRU 2024-11-09 21:23:35 F BLOOD FLOW-QWB 2024-11-09 21:23:35 400 F Urea nitrogen [Mass/volume] in Serum or Plasma 2024-11-09 21:22:14 43 mg/dL F 9.0-23.0 Urea nitrogen [Mass/volume] in Serum or Plasma --post dialysis 2024-11-09 20:48:11 11 mg/dL F 9.0-23.0 URR% 2024-10-20 02:24:51 F Unable to calculate: Post BUN lab result is unknown,Unable to Calculate. DIALYZER FLOW-QD 2024-10-20 02:24:51 500 mL/min F LENGTH OF DIALYSIS 2024-10-20 02:24:51 211 min F BSA HERON 2024-10-20 02:24:51 F Unable to calculate: Post BUN lab result is unknown PATIENT AGE 2024-10-20 02:24:51 84 Years F Dialyzer MILDRED 2024-10-20 02:24:51 1264 Calc F WEIGHT - POST DAY 1 2024-10-20 02:24:51 107.1 kg F HEIGHT IN INCHES 2024-10-20 02:24:51 69 Inches F WEIGHT - PRE DAY 1 2024-10-20 02:24:51 108.8 kg F WEIGHT (KG) 2024-10-20 02:24:51 106.5 kg F PRESCRIBED DAYS/WEEK 2024-10-20 02:24:51 3 Day/Wk F VT (KT/V TX VOL) 2024-10-20 02:24:51 F Unable to calculate: Post BUN lab result is unknown VM (KT/V MEAN VOL) 2024-10-20 02:24:51 F Unable to calculate: Post BUN lab result is unknown Residual kt/v 2024-10-20 02:24:51 F Unable to calculate: Post BUN lab result is unknown nPCR 2024-10-20 02:24:51 F Unable to calculate: Post BUN lab result is unknown KT/V PRESCRIBED 2024-10-20 02:24:51 F Unable to calculate: Post BUN lab result is unknown Total Kt/V 2024-10-20 02:24:51 F Unable to calculate: Post BUN lab result is unknown AMPUTATE FACTOR 2024-10-20 02:24:51 0 F TBW ([place]) 2024-10-20 02:24:51 F Unable to calculate: Post BUN lab result is unknown eKt/V 2024-10-20 02:24:51 F Unable to calculate: Post BUN lab result is unknown spKt/V 2024-10-20 02:24:51 F Unable to calculate: Post BUN lab result is unknown stdKt/V (DIAL) 2024-10-20 02:24:51 F Unable to calculate: Post BUN lab result is unknown Std Renal KT/V 2024-10-20 02:24:51 F Unable to calculate: Post BUN lab result is unknown stdKT/V Total 2024-10-20 02:24:51 F Unable to calculate: Post BUN lab result is unknown TOTAL HOURS/WEEK DIALYSIS 2024-10-20 02:24:51 10 hrs F BLOOD FLOW-QWB 2024-10-20 02:24:51 400 F CURRENT KRU 2024-10-20 02:24:51 F Unable to calculate: Post BUN lab result is unknown Urea nitrogen [Mass/volume] in Serum or Plasma 2024-10-20 02:23:16 39 mg/dL F 9.0-23.0 Creatinine [Mass/volume] in Serum or Plasma 2024-10-20 02:23:16 4.08 mg/dL F 0.7-1.3 URR% 2024-10-13 02:08:10 72 % F DIALYZER FLOW-QD 2024-10-13 02:08:10 500 mL/min F Dialyzer MILDRED 2024-10-13 02:08:10 1264 Calc F LENGTH OF DIALYSIS 2024-10-13 02:08:10 209 min F PATIENT AGE 2024-10-13 02:08:10 84 Years F BSA HERON 2024-10-13 02:08:10 2.21 sq m F WEIGHT - POST DAY 1 2024-10-13 02:08:10 106.8 kg F WEIGHT - PRE DAY 1 2024-10-13 02:08:10 109 kg F HEIGHT IN INCHES 2024-10-13 02:08:10 69 Inches F WEIGHT (KG) 2024-10-13 02:08:10 106.5 kg F VT (KT/V TX VOL) 2024-10-13 02:08:10 37.9 L F PRESCRIBED DAYS/WEEK 2024-10-13 02:08:10 3 Day/Wk F Residual kt/v 2024-10-13 02:08:10 F VM (KT/V MEAN VOL) 2024-10-13 02:08:10 38 F KT/V PRESCRIBED 2024-10-13 02:08:10 1.38 F Total Kt/V 2024-10-13 02:08:10 1.49 F nPCR 2024-10-13 02:08:10 0.88 G/KG/D F AMPUTATE FACTOR 2024-10-13 02:08:10 0 F TBW ([place]) 2024-10-13 02:08:10 49.18 Liters F eKt/V 2024-10-13 02:08:10 1.27 F stdKt/V (DIAL) 2024-10-13 02:08:10 N/A F spKt/V 2024-10-13 02:08:10 1.49 F Std Renal KT/V 2024-10-13 02:08:10 N/A F stdKT/V Total 2024-10-13 02:08:10 N/A F TOTAL HOURS/WEEK DIALYSIS 2024-10-13 02:08:10 10 hrs F BLOOD FLOW-QWB 2024-10-13 02:08:10 400 F CURRENT KRU 2024-10-13 02:08:10 F Urea nitrogen [Mass/volume] in Serum or Plasma 2024-10-13 02:06:21 43 mg/dL F 9.0-23.0 Urea nitrogen [Mass/volume] in Serum or Plasma --post dialysis 2024-10-12 23:48:21 12 mg/dL F 9.0-23.0 Creatinine [Mass/volume] in Serum or Plasma 2024-09-21 20:02:13 4.53 mg/dL F 0.7-1.3 DIALYZER FLOW-QD 2024-09-14 23:47:35 500 mL/min F URR% 2024-09-14 23:47:35 75 % F Dialyzer MILDRED 2024-09-14 23:47:35 1264 Calc F WEIGHT - POST DAY 1 2024-09-14 23:47:35 107.2 kg F LENGTH OF DIALYSIS 2024-09-14 23:47:35 210 min F BSA HERON 2024-09-14 23:47:35 2.19 sq m F WEIGHT - PRE DAY 1 2024-09-14 23:47:35 109.3 kg F PATIENT AGE 2024-09-14 23:47:35 84 Years F HEIGHT IN INCHES 2024-09-14 23:47:35 69 Inches F WEIGHT (KG) 2024-09-14 23:47:35 104.5 kg F PRESCRIBED DAYS/WEEK 2024-09-14 23:47:35 3 Day/Wk F VT (KT/V TX VOL) 2024-09-14 23:47:35 34.3 L F VM (KT/V MEAN VOL) 2024-09-14 23:47:35 38 F Residual kt/v 2024-09-14 23:47:35 F Unable to calculate: Post BUN lab result is unknown KT/V PRESCRIBED 2024-09-14 23:47:35 1.41 F Total Kt/V 2024-09-14 23:47:35 1.65 F nPCR 2024-09-14 23:47:35 1.17 G/KG/D F TBW ([place]) 2024-09-14 23:47:35 49.32 Liters F AMPUTATE FACTOR 2024-09-14 23:47:35 0 F spKt/V 2024-09-14 23:47:35 1.65 F eKt/V 2024-09-14 23:47:35 1.39 F stdKt/V (DIAL) 2024-09-14 23:47:35 N/A F Std Renal KT/V 2024-09-14 23:47:35 N/A F stdKT/V Total 2024-09-14 23:47:35 N/A F TOTAL HOURS/WEEK DIALYSIS 2024-09-14 23:47:35 10 hrs F BLOOD FLOW-QWB 2024-09-14 23:47:35 395 F CURRENT KRU 2024-09-14 23:47:35 F Unable to calculate: Post BUN lab result is unknown Urea nitrogen [Mass/volume] in Serum or Plasma --post dialysis 2024-09-14 23:45:12 14 mg/dL F 9.0-23.0 Urea nitrogen [Mass/volume] in Serum or Plasma 2024-09-14 22:33:17 57 mg/dL F 9.0-23.0 TBW ([place]) 2024-07-11 14:21:12 48.54 Liters F Residual kt/v 2024-07-11 14:21:12 F VM (KT/V MEAN VOL) 2024-07-11 14:21:12 40.3 F LENGTH OF DIALYSIS 2024-07-11 14:21:12 223 min F HEIGHT IN INCHES 2024-07-11 14:21:12 69 Inches F CURRENT KRU 2024-07-11 14:21:12 F KT/V PRESCRIBED 2024-07-11 14:21:12 1.49 F TOTAL HOURS/WEEK DIALYSIS 2024-07-11 14:21:12 10 hrs F BSA HERON 2024-07-11 14:21:12 2.19 sq m F AMPUTATE FACTOR 2024-07-11 14:21:12 0 F WEIGHT - PRE DAY 1 2024-07-11 14:21:12 106.8 kg F Dialyzer MILRDED 2024-07-11 14:21:12 1264 Calc F eKt/V 2024-07-11 14:21:12 1.19 F nPCR 2024-07-11 14:21:12 0.8 G/KG/D F stdKT/V Total 2024-07-11 14:21:12 N/A F PRESCRIBED DAYS/WEEK 2024-07-11 14:21:12 3 Day/Wk F BLOOD FLOW-QWB 2024-07-11 14:21:12 400 F spKt/V 2024-07-11 14:21:12 1.39 F WEIGHT - POST DAY 1 2024-07-11 14:21:12 104.9 kg F DIALYZER FLOW-QD 2024-07-11 14:21:12 500 mL/min F VT (KT/V TX VOL) 2024-07-11 14:21:12 43.5 L F PATIENT AGE 2024-07-11 14:21:12 84 Years F stdKt/V (DIAL) 2024-07-11 14:21:12 N/A F Std Renal KT/V 2024-07-11 14:21:12 N/A F WEIGHT (KG) 2024-07-11 14:21:12 104.5 kg F URR% 2024-07-11 14:21:12 71 % F Total Kt/V 2024-07-11 14:21:12 1.39 F Urea nitrogen [Mass/volume] in Serum or Plasma --post dialysis 2024-07-11 14:19:15 15 mg/dL F 9.0-23.0 Urea nitrogen [Mass/volume] in Serum or Plasma 2024-07-11 14:11:19 51 mg/dL F 9.0-23.0 VT (KT/V TX VOL) 2024-06-08 14:11:50 40.6 L F Dialyzer MILDRED 2024-06-08 14:11:50 1264 Calc F AMPUTATE FACTOR 2024-06-08 14:11:50 0 F WEIGHT (KG) 2024-06-08 14:11:50 104.5 kg F Residual kt/v 2024-06-08 14:11:50 F spKt/V 2024-06-08 14:11:50 1.39 F DIALYZER FLOW-QD 2024-06-08 14:11:50 500 mL/min F BSA HERON 2024-06-08 14:11:50 2.19 sq m F PATIENT AGE 2024-06-08 14:11:50 83 Years F KT/V PRESCRIBED 2024-06-08 14:11:50 1.41 F TOTAL HOURS/WEEK DIALYSIS 2024-06-08 14:11:50 9 hrs F Std Renal KT/V 2024-06-08 14:11:50 N/A F stdKT/V Total 2024-06-08 14:11:50 N/A F stdKt/V (DIAL) 2024-06-08 14:11:50 N/A F VM (KT/V MEAN VOL) 2024-06-08 14:11:50 39.3 F LENGTH OF DIALYSIS 2024-06-08 14:11:50 211 min F URR% 2024-06-08 14:11:50 69 % F HEIGHT IN INCHES 2024-06-08 14:11:50 69 Inches F WEIGHT - PRE DAY 1 2024-06-08 14:11:50 108.8 kg F BLOOD FLOW-QWB 2024-06-08 14:11:50 385 F eKt/V 2024-06-08 14:11:50 1.18 F PRESCRIBED DAYS/WEEK 2024-06-08 14:11:50 3 Day/Wk F CURRENT KRU 2024-06-08 14:11:50 F TBW ([place]) 2024-06-08 14:11:50 49.01 Liters F WEIGHT - POST DAY 1 2024-06-08 14:11:50 106 kg F Total Kt/V 2024-06-08 14:11:50 1.39 F nPCR 2024-06-08 14:11:50 1.14 G/KG/D F Urea nitrogen [Mass/volume] in Serum or Plasma 2024-06-08 14:10:20 61 mg/dL F 9.0-23.0 Creatinine [Mass/volume] in Serum or Plasma 2024-06-08 14:10:18 4.37 mg/dL F 0.7-1.3 Urea nitrogen [Mass/volume] in Serum or Plasma --post dialysis 2024-06-08 13:56:14 19 mg/dL F 9.0-23.0 Total Kt/V 2024-05-09 19:10:10 1.43 F VM (KT/V MEAN VOL) 2024-05-09 19:10:10 38.9 F WEIGHT (KG) 2024-05-09 19:10:10 103.5 kg F TOTAL HOURS/WEEK DIALYSIS 2024-05-09 19:10:10 10 hrs F Residual kt/v 2024-05-09 19:10:10 F URR% 2024-05-09 19:10:10 71 % F stdKt/V (DIAL) 2024-05-09 19:10:10 N/A F PRESCRIBED DAYS/WEEK 2024-05-09 19:10:10 3 Day/Wk F nPCR 2024-05-09 19:10:10 0.88 G/KG/D F KT/V PRESCRIBED 2024-05-09 19:10:10 1.35 F WEIGHT - POST DAY 1 2024-05-09 19:10:10 105.4 kg F spKt/V 2024-05-09 19:10:10 1.43 F DIALYZER FLOW-QD 2024-05-09 19:10:10 500 mL/min F stdKT/V Total 2024-05-09 19:10:10 N/A F AMPUTATE FACTOR 2024-05-09 19:10:10 0 F Dialyzer MILDRED 2024-05-09 19:10:10 1264 Calc F WEIGHT - PRE DAY 1 2024-05-09 19:10:10 107.6 kg F BLOOD FLOW-QWB 2024-05-09 19:10:10 400 F LENGTH OF DIALYSIS 2024-05-09 19:10:10 200 min F PATIENT AGE 2024-05-09 19:10:10 83 Years F TBW ([place]) 2024-05-09 19:10:10 48.81 Liters F CURRENT KRU 2024-05-09 19:10:10 F BSA HERON 2024-05-09 19:10:10 2.18 sq m F Std Renal KT/V 2024-05-09 19:10:10 N/A F eKt/V 2024-05-09 19:10:10 1.21 F VT (KT/V TX VOL) 2024-05-09 19:10:10 37.8 L F HEIGHT IN INCHES 2024-05-09 19:10:10 69 Inches F Urea nitrogen [Mass/volume] in Serum or Plasma 2024-05-09 19:08:23 56 mg/dL F 9.0-23.0 Urea nitrogen [Mass/volume] in Serum or Plasma --post dialysis 2024-05-09 13:59:19 16 mg/dL F 9.0-23.0 eKt/V 2024-04-19 04:27:19 F Unable to calculate: Post BUN lab result is unknown TBW ([place]) 2024-04-19 04:27:19 F Unable to calculate: Post BUN lab result is unknown DIALYZER FLOW-QD 2024-04-19 04:27:19 500 mL/min F TOTAL HOURS/WEEK DIALYSIS 2024-04-19 04:27:19 10 hrs F Residual kt/v 2024-04-19 04:27:19 F Unable to calculate: Post BUN lab result is unknown WEIGHT - POST DAY 1 2024-04-19 04:27:19 103.9 kg F stdKT/V Total 2024-04-19 04:27:19 F Unable to calculate: Post BUN lab result is unknown AMPUTATE FACTOR 2024-04-19 04:27:19 0 F CURRENT KRU 2024-04-19 04:27:19 F Unable to calculate: Post BUN lab result is unknown BSA HERON 2024-04-19 04:27:19 F Unable to calculate: Post BUN lab result is unknown Total Kt/V 2024-04-19 04:27:19 F Unable to calculate: Post BUN lab result is unknown spKt/V 2024-04-19 04:27:19 F Unable to calculate: Post BUN lab result is unknown WEIGHT - PRE DAY 1 2024-04-19 04:27:19 106.4 kg F nPCR 2024-04-19 04:27:19 F Unable to calculate: Post BUN lab result is unknown URR% 2024-04-19 04:27:19 F Unable to calculate: Post BUN lab result is unknown VM (KT/V MEAN VOL) 2024-04-19 04:27:19 F Unable to calculate: Post BUN lab result is unknown VT (KT/V TX VOL) 2024-04-19 04:27:19 F Unable to calculate: Post BUN lab result is unknown PRESCRIBED DAYS/WEEK 2024-04-19 04:27:19 3 Day/Wk F BLOOD FLOW-QWB 2024-04-19 04:27:19 400 F LENGTH OF DIALYSIS 2024-04-19 04:27:19 212 min F stdKt/V (DIAL) 2024-04-19 04:27:19 F Unable to calculate: Post BUN lab result is unknown Dialyzer MILDRED 2024-04-19 04:27:19 1264 Calc F KT/V PRESCRIBED 2024-04-19 04:27:19 F Unable to calculate: Post BUN lab result is unknown WEIGHT (KG) 2024-04-19 04:27:19 103.5 kg F PATIENT AGE 2024-04-19 04:27:19 83 Years F HEIGHT IN INCHES 2024-04-19 04:27:19 69 Inches F Std Renal KT/V 2024-04-19 04:27:19 F Unable to calculate: Post BUN lab result is unknown Creatinine [Mass/volume] in Serum or Plasma 2024-04-19 04:25:19 3.51 mg/dL F 0.7-1.3 Urea nitrogen [Mass/volume] in Serum or Plasma 2024-04-19 04:25:19 51 mg/dL F 9.0-23.0 Creatinine [Mass/volume] in Serum or Plasma 2024-03-21 16:24:21 3.71 mg/dL F 0.7-1.3 LENGTH OF DIALYSIS 2024-03-06 17:49:57 204 min F Dialyzer MILDRED 2024-03-06 17:49:57 1264 Calc F Total Kt/V 2024-03-06 17:49:57 1.45 F TOTAL HOURS/WEEK DIALYSIS 2024-03-06 17:49:57 3 hrs F Std Renal KT/V 2024-03-06 17:49:57 N/A F Residual kt/v 2024-03-06 17:49:57 F VM (KT/V MEAN VOL) 2024-03-06 17:49:57 37.7 F PRESCRIBED DAYS/WEEK 2024-03-06 17:49:57 3 Day/Wk F VT (KT/V TX VOL) 2024-03-06 17:49:57 38.3 L F WEIGHT - PRE DAY 1 2024-03-06 17:49:57 110.6 kg F AMPUTATE FACTOR 2024-03-06 17:49:57 0 F WEIGHT - POST DAY 1 2024-03-06 17:49:57 107.8 kg F spKt/V 2024-03-06 17:49:57 1.45 F BLOOD FLOW-QWB 2024-03-06 17:49:57 400 F URR% 2024-03-06 17:49:57 73 % F HEIGHT IN INCHES 2024-03-06 17:49:57 69 Inches F PATIENT AGE 2024-03-06 17:49:57 83 Years F nPCR 2024-03-06 17:49:57 0.36 G/KG/D F WEIGHT (KG) 2024-03-06 17:49:57 106.5 kg F DIALYZER FLOW-QD 2024-03-06 17:49:57 500 mL/min F CURRENT KRU 2024-03-06 17:49:57 F stdKt/V (DIAL) 2024-03-06 17:49:57 N/A F stdKT/V Total 2024-03-06 17:49:57 N/A F KT/V PRESCRIBED 2024-03-06 17:49:57 1.34 F TBW ([place]) 2024-03-06 17:49:57 49.61 Liters F BSA HERON 2024-03-06 17:49:57 2.21 sq m F eKt/V 2024-03-06 17:49:57 1.22 F Urea nitrogen [Mass/volume] in Serum or Plasma --post dialysis 2024-03-06 17:48:28 11 mg/dL F 9.0-23.0 Creatinine [Mass/volume] in Serum or Plasma 2024-03-06 16:10:24 4.53 mg/dL F 0.7-1.3 Urea nitrogen [Mass/volume] in Serum or Plasma 2024-03-06 16:10:24 40 mg/dL F 9.0-23.0 VM (KT/V MEAN VOL) 2024-01-20 22:13:06 37.5 F Std Renal KT/V 2024-01-20 22:13:06 N/A F WEIGHT (KG) 2024-01-20 22:13:06 104.5 kg F LENGTH OF DIALYSIS 2024-01-20 22:13:06 211 min F WEIGHT - POST DAY 1 2024-01-20 22:13:06 107.3 kg F KT/V PRESCRIBED 2024-01-20 22:13:06 1.41 F DIALYZER FLOW-QD 2024-01-20 22:13:06 500 mL/min F BLOOD FLOW-QWB 2024-01-20 22:13:06 400 F BSA HERON 2024-01-20 22:13:06 2.19 sq m F eKt/V 2024-01-20 22:13:06 1.26 F PATIENT AGE 2024-01-20 22:13:06 83 Years F PRESCRIBED DAYS/WEEK 2024-01-20 22:13:06 3 Day/Wk F spKt/V 2024-01-20 22:13:06 1.48 F AMPUTATE FACTOR 2024-01-20 22:13:06 0 F Dialyzer MILDRED 2024-01-20 22:13:06 1264 Calc F stdKt/V (DIAL) 2024-01-20 22:13:06 N/A F Total Kt/V 2024-01-20 22:13:06 1.48 F HEIGHT IN INCHES 2024-01-20 22:13:06 69 Inches F URR% 2024-01-20 22:13:06 72 % F VT (KT/V TX VOL) 2024-01-20 22:13:06 38.5 L F TBW ([place]) 2024-01-20 22:13:06 49.45 Liters F stdKT/V Total 2024-01-20 22:13:06 N/A F nPCR 2024-01-20 22:13:06 1.11 G/KG/D F TOTAL HOURS/WEEK DIALYSIS 2024-01-20 22:13:06 10 hrs F Residual kt/v 2024-01-20 22:13:06 F WEIGHT - PRE DAY 1 2024-01-20 22:13:06 109.4 kg F CURRENT KRU 2024-01-20 22:13:06 F Creatinine [Mass/volume] in Serum or Plasma 2024-01-20 22:11:20 3.42 mg/dL F 0.7-1.3 Urea nitrogen [Mass/volume] in Serum or Plasma 2024-01-20 22:11:20 57 mg/dL F 9.0-23.0 Urea nitrogen [Mass/volume] in Serum or Plasma --post dialysis 2024-01-20 14:26:20 16 mg/dL F 9.0-23.0 Creatinine [Mass/volume] in Serum or Plasma 2023-12-23 16:01:20 3.47 mg/dL F 0.7-1.3 HEIGHT IN INCHES 2023-11-26 01:07:31 69 Inches F WEIGHT - POST DAY 1 2023-11-26 01:07:31 103.2 kg F URR% 2023-11-26 01:07:31 72 % F stdKt/V (DIAL) 2023-11-26 01:07:31 N/A F VT (KT/V TX VOL) 2023-11-26 01:07:31 40.1 L F Total Kt/V 2023-11-26 01:07:31 1.43 F TOTAL HOURS/WEEK DIALYSIS 2023-11-26 01:07:31 10 hrs F nPCR 2023-11-26 01:07:31 1.29 G/KG/D F Std Renal KT/V 2023-11-26 01:07:31 N/A F LENGTH OF DIALYSIS 2023-11-26 01:07:31 212 min F VM (KT/V MEAN VOL) 2023-11-26 01:07:31 38.2 F WEIGHT (KG) 2023-11-26 01:07:31 103 kg F PATIENT AGE 2023-11-26 01:07:31 83 Years F Residual kt/v 2023-11-26 01:07:31 F AMPUTATE FACTOR 2023-11-26 01:07:31 0 F eKt/V 2023-11-26 01:07:31 1.21 F CURRENT KRU 2023-11-26 01:07:31 F PRESCRIBED DAYS/WEEK 2023-11-26 01:07:31 3 Day/Wk F spKt/V 2023-11-26 01:07:31 1.43 F TBW ([place]) 2023-11-26 01:07:31 48.07 Liters F Dialyzer MILDRED 2023-11-26 01:07:31 1264 Calc F WEIGHT - PRE DAY 1 2023-11-26 01:07:31 104.2 kg F DIALYZER FLOW-QD 2023-11-26 01:07:31 500 mL/min F BSA HERON 2023-11-26 01:07:31 2.18 sq m F stdKT/V Total 2023-11-26 01:07:31 N/A F KT/V PRESCRIBED 2023-11-26 01:07:31 1.43 F BLOOD FLOW-QWB 2023-11-26 01:07:31 400 F Urea nitrogen [Mass/volume] in Serum or Plasma --post dialysis 2023-11-26 00:52:26 20 mg/dL F 9.0-23.0 Creatinine [Mass/volume] in Serum or Plasma 2023-11-26 00:38:32 3.49 mg/dL F 0.7-1.3 Urea nitrogen [Mass/volume] in Serum or Plasma 2023-11-26 00:38:32 71 mg/dL F 9.0-23.0 stdKT/V Total 2023-10-22 00:26:06 N/A F HEIGHT IN INCHES 2023-10-22 00:26:06 69 Inches F WEIGHT - PRE DAY 1 2023-10-22 00:26:06 108 kg F CURRENT KRU 2023-10-22 00:26:06 F Residual kt/v 2023-10-22 00:26:06 F nPCR 2023-10-22 00:26:06 0.76 G/KG/D F TBW ([place]) 2023-10-22 00:26:06 48.74 Liters F PATIENT AGE 2023-10-22 00:26:06 83 Years F VT (KT/V TX VOL) 2023-10-22 00:26:06 37.6 L F TOTAL HOURS/WEEK DIALYSIS 2023-10-22 00:26:06 10 hrs F URR% 2023-10-22 00:26:06 71 % F Dialyzer MILDRED 2023-10-22 00:26:06 1264 Calc F LENGTH OF DIALYSIS 2023-10-22 00:26:06 207 min F Std Renal KT/V 2023-10-22 00:26:06 N/A F VM (KT/V MEAN VOL) 2023-10-22 00:26:06 37.5 F WEIGHT (KG) 2023-10-22 00:26:06 103 kg F spKt/V 2023-10-22 00:26:06 1.49 F PRESCRIBED DAYS/WEEK 2023-10-22 00:26:06 3 Day/Wk F BLOOD FLOW-QWB 2023-10-22 00:26:06 400 F stdKt/V (DIAL) 2023-10-22 00:26:06 N/A F BSA HERON 2023-10-22 00:26:06 2.18 sq m F KT/V PRESCRIBED 2023-10-22 00:26:06 1.4 F eKt/V 2023-10-22 00:26:06 1.27 F Total Kt/V 2023-10-22 00:26:06 1.49 F WEIGHT - POST DAY 1 2023-10-22 00:26:06 105.2 kg F DIALYZER FLOW-QD 2023-10-22 00:26:06 500 mL/min F AMPUTATE FACTOR 2023-10-22 00:26:06 0 F Urea nitrogen [Mass/volume] in Serum or Plasma --post dialysis 2023-10-22 00:24:23 10 mg/dL F 9.0-23.0 Creatinine [Mass/volume] in Serum or Plasma 2023-10-21 20:59:19 2.62 mg/dL F 0.7-1.3 Urea nitrogen [Mass/volume] in Serum or Plasma 2023-10-21 20:59:19 35 mg/dL F 9.0-23.0 WEIGHT - POST DAY 1 2023-10-01 15:42:03 104.1 kg F stdKt/V (DIAL) 2023-10-01 15:42:03 N/A F TBW (Dial[place]) 2023-10-01 15:42:03 48.37 Liters F stdKT/V Total 2023-10-01 15:42:03 N/A F AMPUTATE FACTOR 2023-10-01 15:42:03 0 F Residual kt/v 2023-10-01 15:42:03 F Dialyzer MILDRED 2023-10-01 15:42:03 1264 Calc F CURRENT KRU 2023-10-01 15:42:03 F BSA HERON 2023-10-01 15:42:03 2.17 sq m F spKt/V 2023-10-01 15:42:03 1.53 F WEIGHT (KG) 2023-10-01 15:42:03 102 kg F Total Kt/V 2023-10-01 15:42:03 1.53 F PRESCRIBED DAYS/WEEK 2023-10-01 15:42:03 3 Day/Wk F VT (KT/V TX VOL) 2023-10-01 15:42:03 37.3 L F LENGTH OF DIALYSIS 2023-10-01 15:42:03 211 min F PATIENT AGE 2023-10-01 15:42:03 83 Years F eKt/V 2023-10-01 15:42:03 1.3 F DIALYZER FLOW-QD 2023-10-01 15:42:03 500 mL/min F TOTAL HOURS/WEEK DIALYSIS 2023-10-01 15:42:03 10 hrs F HEIGHT IN INCHES 2023-10-01 15:42:03 69 Inches F Std Renal KT/V 2023-10-01 15:42:03 N/A F BLOOD FLOW-QWB 2023-10-01 15:42:03 400 F KT/V PRESCRIBED 2023-10-01 15:42:03 1.43 F URR% 2023-10-01 15:42:03 73 % F WEIGHT - PRE DAY 1 2023-10-01 15:42:03 107.2 kg F VM (KT/V MEAN VOL) 2023-10-01 15:42:03 37.5 F nPCR 2023-10-01 15:42:03 0.75 G/KG/D F Creatinine [Mass/volume] in Serum or Plasma 2023-09-28 14:27:41 2.93 mg/dL F 0.7-1.3 Urea nitrogen [Mass/volume] in Serum or Plasma 2023-09-28 14:27:41 44 mg/dL F 9.0-23.0 Urea nitrogen [Mass/volume] in Serum or Plasma --post dialysis 2023-09-28 14:05:35 12 mg/dL F 9.0-23.0 URR% 2023-09-23 15:16:02 F Recollect - Shipping temp out of range Urea nitrogen [Mass/volume] in Serum or Plasma --post dialysis 2023-09-23 15:15:28 F Recollect - Shipping temp out of range Creatinine [Mass/volume] in Serum or Plasma 2023-09-23 15:14:32 F Recollect - Shipping temp out of range Urea nitrogen [Mass/volume] in Serum or Plasma 2023-09-23 15:14:32 F Recollect - Shipping temp out of range PATIENT AGE 2023-09-22 19:06:47 83 Years F HEIGHT IN INCHES 2023-09-22 19:06:47 69 Inches F AMPUTATE FACTOR 2023-09-22 19:06:47 0 F WEIGHT (KG) 2023-09-22 19:06:47 102 kg F Urea nitrogen [Mass/volume] in Serum or Plasma --post dialysis 2023-08-18 06:24:45 F Recollect - Unsp un specimen spKt/V 2023-08-18 03:18:12 F Unable to calculate: Post BUN lab result is unknown PRESCRIBED DAYS/WEEK 2023-08-18 03:18:12 3 Day/Wk F WEIGHT (KG) 2023-08-18 03:18:12 102 kg F BSA HERON 2023-08-18 03:18:12 F Unable to calculate: Post BUN lab result is unknown VT (KT/V TX VOL) 2023-08-18 03:18:12 F Unable to calculate: Post BUN lab result is unknown LENGTH OF DIALYSIS 2023-08-18 03:18:12 180 min F eKt/V 2023-08-18 03:18:12 F Unable to calculate: Post BUN lab result is unknown Residual kt/v 2023-08-18 03:18:12 F Unable to calculate: Post BUN lab result is unknown Total Kt/V 2023-08-18 03:18:12 F Unable to calculate: Post BUN lab result is unknown VM (KT/V MEAN VOL) 2023-08-18 03:18:12 F Unable to calculate: Post BUN lab result is unknown WEIGHT - PRE DAY 1 2023-08-18 03:18:12 105.1 kg F BLOOD FLOW-QWB 2023-08-18 03:18:12 300 F stdKt/V (DIAL) 2023-08-18 03:18:12 F Unable to calculate: Post BUN lab result is unknown TOTAL HOURS/WEEK DIALYSIS 2023-08-18 03:18:12 9 hrs F CURRENT KRU 2023-08-18 03:18:12 F Unable to calculate: Post BUN lab result is unknown TBW (Diallo) 2023-08-18 03:18:12 F Unable to calculate: Post BUN lab result is unknown WEIGHT - POST DAY 1 2023-08-18 03:18:12 104.2 kg F AMPUTATE FACTOR 2023-08-18 03:18:12 0 F PATIENT AGE 2023-08-18 03:18:12 83 Years F nPCR 2023-08-18 03:18:12 F Unable to calculate: Post BUN lab result is unknown stdKT/V Total 2023-08-18 03:18:12 F Unable to calculate: Post BUN lab result is unknown HEIGHT IN INCHES 2023-08-18 03:18:12 69 Inches F Std Renal KT/V 2023-08-18 03:18:12 F Unable to calculate: Post BUN lab result is unknown KT/V PRESCRIBED 2023-08-18 03:18:12 F Unable to calculate: Post BUN lab result is unknown Dialyzer MILDRED 2023-08-18 03:18:11 1264 Calc F DIALYZER FLOW-QD 2023-08-18 03:18:11 475 mL/min F URR% 2023-08-18 03:18:10 F Unable to calculate: Post BUN lab result is unknown Creatinine [Mass/volume] in Serum or Plasma 2023-08-18 03:16:42 3.28 mg/dL F 0.7-1.3 Urea nitrogen [Mass/volume] in Serum or Plasma 2023-08-18 03:16:42 47 mg/dL F 9.0-23.0 BUN/CREAT 2023-05-13 00:49:51 18.5 Calc F 6.9-32.9 Creatinine [Mass/volume] in Serum or Plasma 2023-05-13 00:49:33 3.9 mg/dL F 0.7-1.3 Urea nitrogen [Mass/volume] in Serum or Plasma 2023-05-13 00:49:33 72 mg/dL F 9.0-23.0 BUN/CREAT 2023-04-15 03:23:05 13 Calc F 6.9-32.9 Urea nitrogen [Mass/volume] in Serum or Plasma 2023-04-15 03:22:52 42 mg/dL F 9.0-23.0 Creatinine [Mass/volume] in Serum or Plasma 2023-04-15 03:22:52 3.24 mg/dL F 0.7-1.3 L/WK/1.73 RESID 2023-03-24 13:25:09 0 L/WK/B F L/WK RESID CC 2023-03-24 13:25:09 0 L/wk F KT/V RESID (M) 2023-03-24 13:25:09 0 Kt/V F UREA CLR UR 2023-03-24 13:25:09 0 mL/min F UREA CLR UR/BSA 2023-03-24 13:25:09 0 mL/min F 64.0-99.0 CRE CLR UR/BSA 2023-03-24 13:25:09 0 mL/min F 85.0-125.0 CRE CLR UR 2023-03-24 13:25:09 0 mL/min F 97.0-137.0 L/WK/1.73 TOTAL 2023-03-23 19:28:04 see comments F Unable to Calculate. Urea Gen Rate 2023-03-23 19:28:04 see comments F Unable to Calculate. KT/V PDF (M) 2023-03-23 19:28:04 see comments F Unable to Calculate. TBW DIALLO MALE 2023-03-23 19:28:04 48.61 Liters F BSA HERON 2023-03-23 19:28:04 2.19 sq m F PCR PD MALE 2023-03-23 19:28:04 see comments F Unable to Calculate. L/WK PDF CC 2023-03-23 19:28:04 see comments F Unable to Calculate. PNA (PD) 2023-03-23 19:28:04 see comments F Unable to Calculate. nPNA (PD MALE) 2023-03-23 19:28:04 see comments F Unable to Calculate. KT/V TOTAL (M) 2023-03-23 19:28:04 see comments F Unable to Calculate. L/WK/1.73 PDF 2023-03-23 19:28:04 see comments F Unable to Calculate. NPCR PD MALE 2023-03-23 19:28:04 see comments F Unable to Calculate. BUN/CREAT 2023-03-23 19:28:04 20.5 Calc F 6.9-32.9 Creatinine [Mass/volume] in Serum or Plasma 2023-03-23 19:27:57 2.83 mg/dL F 0.7-1.3 Urea nitrogen [Mass/volume] in Serum or Plasma 2023-03-23 19:27:57 58 mg/dL F 9.0-23.0 PATIENT AGE 2023-03-22 20:49:34 82 Years F AMPUTATE FACTOR 2023-03-22 20:49:34 0 F BODY WEIGHT (LBS) 2023-03-22 20:49:34 230 lbs F HEIGHT IN INCHES 2023-03-22 20:49:34 69 Inches F BUN/CREAT 2023-02-10 00:00:46 13.4 Calc F 6.9-32.9 Creatinine [Mass/volume] in Serum or Plasma 2023-02-10 00:00:03 4.24 mg/dL F 0.7-1.3 Urea nitrogen [Mass/volume] in Serum or Plasma 2023-02-10 00:00:03 57 mg/dL F 9.0-23.0 L/WK/1.73 PDF 2022-12-09 16:56:14 29.06 L/WK/B F KT/V PDF (M) 2022-12-09 16:56:14 1 Kt/V F L/WK/1.73 TOTAL 2022-12-09 16:56:14 149.38 L/WK/B F L/WK PDF CC 2022-12-09 16:56:14 37.52 L/wk F PCR PD MALE 2022-12-09 16:56:14 70 g/day F NPCR PD MALE 2022-12-09 16:56:14 0.81 G/KG/D F nPNA (PD MALE) 2022-12-09 16:56:14 0.92 G/KG/D F PNA (PD) 2022-12-09 16:56:14 79.1 g/day F Urea Gen Rate 2022-12-09 16:56:14 12.7 GM/D F KT/V TOTAL (M) 2022-12-09 16:56:14 2.43 Kt/V F Creatinine [Mass/volume] in Peritoneal dialysis fluid 2022-12-09 16:55:30 1.36 mg/dL F Urea nitrogen [Mass/volume] in Peritoneal fluid --24 hours post peritoneal dialysis 2022-12-09 16:55:30 26 mg/dL F UREA CLR UR 2022-12-09 15:39:34 7.1 mL/min F L/WK RESID CC 2022-12-09 15:39:34 155.39 L/wk F KT/V RESID (M) 2022-12-09 15:39:34 1.43 Kt/V F L/WK/1.73 RESID 2022-12-09 15:39:34 120.33 L/WK/B F BUN/CREAT 2022-12-09 15:39:34 14.3 Calc F 6.9-32.9 UREA CLR UR/BSA 2022-12-09 15:39:34 5.5 mL/min F 64.0-99.0 CRE CLR UR/BSA 2022-12-09 15:39:34 18 mL/min F 85.0-125.0 CRE CLR UR 2022-12-09 15:39:34 24 mL/min F 97.0-137.0 Creatinine [Mass/volume] in Serum or Plasma 2022-12-09 15:38:35 3.43 mg/dL F 0.7-1.3 Urea nitrogen [Mass/volume] in Serum or Plasma 2022-12-09 15:38:35 49 mg/dL F 9.0-23.0 TBW DIALLO MALE 2022-12-09 15:26:57 50.14 Liters F BSA HERON 2022-12-09 15:26:57 2.23 sq m F Urea nitrogen [Mass/volume] in Urine 2022-12-09 15:26:31 335 mg/dL F Creatinine [Mass/volume] in Urine 2022-12-09 15:26:31 78.07 mg/dL F AMPUTATE FACTOR 2022-12-08 20:26:18 0 F COLLECTION TIME FOR URINE 2022-12-08 20:26:18 1440 min F TOTAL VOLUME-24 HR URINE 2022-12-08 20:26:18 1500 mL F BODY WEIGHT (LBS) 2022-12-08 20:26:18 240 lbs F PATIENT AGE 2022-12-08 20:26:18 82 Years F Total Volume of EFFL/DIAL 2022-12-08 20:26:18 02497 mLs F MINIMUM GOAL: KT/V PD 2022-12-08 20:26:18 1.7 F HEIGHT IN INCHES 2022-12-08 20:26:18 69 Inches F BUN/CREAT 2022-11-10 00:12:57 15.2 Calc F 6.9-32.9 Creatinine [Mass/volume] in Serum or Plasma 2022-11-10 00:12:44 3.87 mg/dL F 0.7-1.3 Urea nitrogen [Mass/volume] in Serum or Plasma 2022-11-10 00:12:44 59 mg/dL F 9.0-23.0 BUN/CREAT 2022-10-13 17:05:35 13.9 Calc F 6.9-32.9 Creatinine [Mass/volume] in Serum or Plasma 2022-10-13 17:05:29 3.81 mg/dL F 0.7-1.3 Urea nitrogen [Mass/volume] in Serum or Plasma 2022-10-13 17:05:29 53 mg/dL F 9.0-23.0 KT/V RESID () 2022-09-11 23:43:30 0.88 Kt/V F L/WK/1.73 PDF 2022-09-11 23:43:30 31.77 L/WK/B F L/WK RESID CC 2022-09-11 23:43:30 125.49 L/wk F L/WK/1.73 TOTAL 2022-09-11 23:43:30 128.61 L/WK/B F KT/V TOTAL () 2022-09-11 23:43:30 1.86 Kt/V F KT/V PDF () 2022-09-11 23:43:30 0.98 Kt/V F L/WK/1.73 RESID 2022-09-11 23:43:30 96.83 L/WK/B F L/WK PDF CC 2022-09-11 23:43:30 41.17 L/wk F UREA CLR UR 2022-09-11 23:43:30 4.4 mL/min F BUN/CREAT 2022-09-11 23:43:30 13.1 Calc F 6.9-32.9 UREA CLR UR/BSA 2022-09-11 23:43:30 3.4 mL/min F 64.0-99.0 CRE CLR UR/BSA 2022-09-11 23:43:30 16 mL/min F 85.0-125.0 CRE CLR UR 2022-09-11 23:43:30 21 mL/min F 97.0-137.0 Creatinine [Mass/volume] in Serum or Plasma 2022-09-11 23:42:26 3.73 mg/dL F 0.7-1.3 Urea nitrogen [Mass/volume] in Serum or Plasma 2022-09-11 23:42:26 49 mg/dL F 9.0-23.0 Urea Gen Rate 2022-09-11 19:52:29 9.8 GM/D F PCR PD MALE 2022-09-11 19:52:29 57 g/day F NPCR PD MALE 2022-09-11 19:52:29 0.66 G/KG/D F PNA (PD) 2022-09-11 19:52:29 64.5 g/day F nPNA (PD MALE) 2022-09-11 19:52:29 0.74 G/KG/D F Urea nitrogen [Mass/volume] in Urine 2022-09-11 19:51:28 344 mg/dL F Creatinine [Mass/volume] in Urine 2022-09-11 19:51:28 122.41 mg/dL F TBW DIALLO MALE 2022-09-11 19:12:34 50.45 Liters F BSA HERON 2022-09-11 19:12:34 2.24 sq m F Urea nitrogen [Mass/volume] in Peritoneal fluid --24 hours post peritoneal dialysis 2022-09-11 19:12:23 25 mg/dL F Creatinine [Mass/volume] in Peritoneal dialysis fluid 2022-09-11 19:12:23 1.58 mg/dL F HEIGHT IN INCHES 2022-09-09 20:34:57 69 Inches F AMPUTATE FACTOR 2022-09-09 20:34:57 0 F PATIENT AGE 2022-09-09 20:34:57 82 Years F BODY WEIGHT (LBS) 2022-09-09 20:34:57 242 lbs F MINIMUM GOAL: KT/V PD 2022-09-09 20:34:20 1.7 F Total Volume of EFFL/DIAL 2022-09-09 20:34:20 68208 mLs F TOTAL VOLUME-24 HR URINE 2022-09-09 20:34:20 900 mL F COLLECTION TIME FOR URINE 2022-09-09 20:34:20 1440 min F BUN/CREAT 2022-07-13 18:48:59 F Recollect - Unsp un specimen Creatinine [Mass/volume] in Serum or Plasma 2022-07-13 18:47:47 F Recollect - Unsp un specimen Urea nitrogen [Mass/volume] in Serum or Plasma 2022-07-13 18:47:47 F Recollect - Unsp un specimen Urea nitrogen [Mass/volume] in Serum or Plasma URR% DIALYZER FLOW-QD Dialyzer MILDRED PATIENT AGE BSA HERON WEIGHT - POST DAY 1 LENGTH OF DIALYSIS WEIGHT - PRE DAY 1 HEIGHT IN INCHES WEIGHT (KG) PRESCRIBED DAYS/WEEK VT (KT/V TX VOL) VM (KT/V MEAN VOL) Residual kt/v KT/V PRESCRIBED Total Kt/V nPCR AMPUTATE FACTOR TBW (Diallo) spKt/V eKt/V stdKt/V (DIAL) stdKT/V Total TOTAL HOURS/WEEK DIALYSIS Std Renal KT/V BLOOD FLOW-QWB CURRENT KRU WEIGHT - PRE DAY 1 stdKT/V Total VT (KT/V TX VOL) nPCR stdKt/V (DIAL) Std Renal KT/V eKt/V LENGTH OF DIALYSIS TOTAL HOURS/WEEK DIALYSIS KT/V PRESCRIBED AMPUTATE FACTOR Urea nitrogen [Mass/volume] in Serum or Plasma PATIENT AGE spKt/V WEIGHT (KG) DIALYZER FLOW-QD Residual kt/v CURRENT KRU HEIGHT IN INCHES Total Kt/V BSA HERON TBW (Diallo) URR% PRESCRIBED DAYS/WEEK Dialyzer MILDRED VM (KT/V MEAN VOL) BLOOD FLOW-QWB WEIGHT - POST DAY 1 CURRENT KRU eKt/V BSA HERON HEIGHT IN INCHES PATIENT AGE AMPUTATE FACTOR TBW (Diallo) WEIGHT - POST DAY 1 WEIGHT - PRE DAY 1 spKt/V TOTAL HOURS/WEEK DIALYSIS VT (KT/V TX VOL) Residual kt/v Std Renal KT/V WEIGHT (KG) VM (KT/V MEAN VOL) URR% KT/V PRESCRIBED nPCR Total Kt/V Urea nitrogen [Mass/volume] in Serum or Plasma BLOOD FLOW-QWB LENGTH OF DIALYSIS DIALYZER FLOW-QD stdKT/V Total Dialyzer MILDRED PRESCRIBED DAYS/WEEK stdKt/V (DIAL) WEIGHT - POST DAY 1 TOTAL HOURS/WEEK DIALYSIS PRESCRIBED DAYS/WEEK WEIGHT - PRE DAY 1 BLOOD FLOW-QWB Dialyzer MILDRED DIALYZER FLOW-QD LENGTH OF DIALYSIS stdKT/V Total spKt/V BSA HERON stdKt/V (DIAL) Residual kt/v nPCR Total Kt/V VT (KT/V TX VOL) CURRENT KRU TBW (Diallo) Std Renal KT/V eKt/V VM (KT/V MEAN VOL) KT/V PRESCRIBED Anemia Description Draw Date Result/Unit Status Ref Range Result Comments HCT CALC HGBX3 2024-11-03 04:28:51 29.4 % F 42.0-52.0 Hemoglobin [Mass/volume] in Blood 2024-11-03 04:28:06 9.8 g/dL F 14.0-18.0 HCT CALC HGBX3 2024-10-19 21:56:20 31.8 % F 42.0-52.0 Erythrocyte distribution width [Ratio] by Automated count 2024-10-19 21:55:23 15.3 % F 11.0-15.0 Erythrocytes [#/volume] in Blood by Automated count 2024-10-19 21:55:23 3.01 x 10^6 cells/uL F 4.6-6.2 Hematocrit [Volume Fraction] of Blood by Automated count 2024-10-19 21:55:23 30.9 % F 41.0-53.0 Hemoglobin [Mass/volume] in Blood 2024-10-19 21:55:23 10.6 g/dL F 14.0-18.0 MCV [Entitic volume] by Automated count 2024-10-19 21:55:23 102.8 fL F 80.0-100.0 MCHC [Mass/volume] by Automated count 2024-10-19 21:55:23 34.3 g/dL F 29.6-35.3 MCH [Entitic mass] by Automated count 2024-10-19 21:55:23 35.3 pg F 25.9-34.2 Platelets [#/volume] in Blood by Automated count 2024-10-19 21:55:23 148 x 10^3 cells/uL F 140.0-450.0 HCT CALC HGBX3 2024-10-05 16:41:58 32.7 % F 42.0-52.0 Hemoglobin [Mass/volume] in Blood 2024-10-05 16:41:08 10.9 g/dL F 14.0-18.0 IRON SATURATION 2024-09-22 02:57:30 30 % F 21.0-49.0 TIBC 2024-09-22 02:57:30 252 ug/dL F 250.0-425.0 Iron [Mass/volume] in Serum or Plasma 2024-09-22 02:48:44 76 ug/dL F 65.0-175.0 Iron binding capacity.unsaturated [Mass/volume] in Serum or Plasma 2024-09-22 02:48:38 176 ug/dL F 75.0-360.0 HCT CALC HGBX3 2024-09-21 19:30:33 32.1 % F 42.0-52.0 Erythrocyte distribution width [Ratio] by Automated count 2024-09-21 19:29:21 14.1 % F 11.0-15.0 Erythrocytes [#/volume] in Blood by Automated count 2024-09-21 19:29:21 3.03 x 10^6 cells/uL F 4.6-6.2 Hematocrit [Volume Fraction] of Blood by Automated count 2024-09-21 19:29:21 31 % F 41.0-53.0 Hemoglobin [Mass/volume] in Blood 2024-09-21 19:29:21 10.7 g/dL F 14.0-18.0 MCHC [Mass/volume] by Automated count 2024-09-21 19:29:21 34.5 g/dL F 29.6-35.3 MCV [Entitic volume] by Automated count 2024-09-21 19:29:21 102.3 fL F 80.0-100.0 Platelets [#/volume] in Blood by Automated count 2024-09-21 19:29:21 150 x 10^3 cells/uL F 140.0-450.0 MCH [Entitic mass] by Automated count 2024-09-21 19:29:21 35.3 pg F 25.9-34.2 Ferritin [Mass/volume] in Serum or Plasma 2024-09-21 15:21:22 276 ng/mL F 22.0-322.0 HCT CALC HGBX3 2024-09-15 00:29:25 30.9 % F 42.0-52.0 Hemoglobin [Mass/volume] in Blood 2024-09-15 00:28:13 10.3 g/dL F 14.0-18.0 HCT CALC HGBX3 2024-09-07 18:02:12 32.1 % F 42.0-52.0 Hemoglobin [Mass/volume] in Blood 2024-09-07 18:01:13 10.7 g/dL F 14.0-18.0 HCT CALC HGBX3 2024-07-06 20:37:38 30 % F 42.0-52.0 Hemoglobin [Mass/volume] in Blood 2024-07-06 20:37:06 10 g/dL F 14.0-18.0 HCT CALC HGBX3 2024-06-08 23:49:51 31.2 % F 42.0-52.0 Erythrocyte distribution width [Ratio] by Automated count 2024-06-08 23:49:06 15.5 % F 11.0-15.0 Hemoglobin [Mass/volume] in Blood 2024-06-08 23:49:06 10.4 g/dL F 14.0-18.0 Platelets [#/volume] in Blood by Automated count 2024-06-08 23:49:06 121 x 10^3 cells/uL F 140.0-450.0 MCHC [Mass/volume] by Automated count 2024-06-08 23:49:06 33.6 g/dL F 29.6-35.3 MCH [Entitic mass] by Automated count 2024-06-08 23:49:06 34.8 pg F 25.9-34.2 Erythrocytes [#/volume] in Blood by Automated count 2024-06-08 23:49:06 2.99 x 10^6 cells/uL F 4.6-6.2 Hematocrit [Volume Fraction] of Blood by Automated count 2024-06-08 23:49:06 31 % F 41.0-53.0 MCV [Entitic volume] by Automated count 2024-06-08 23:49:06 103.4 fL F 80.0-100.0 HCT CALC HGBX3 2024-05-02 15:18:46 34.2 % F 42.0-52.0 Hemoglobin [Mass/volume] in Blood 2024-05-02 15:17:12 11.4 g/dL F 14.0-18.0 HCT CALC HGBX3 2024-04-19 00:25:12 34.8 % F 42.0-52.0 Erythrocyte distribution width [Ratio] by Automated count 2024-04-19 00:24:15 15.8 % F 11.0-15.0 Platelets [#/volume] in Blood by Automated count 2024-04-19 00:24:15 142 x 10^3 cells/uL F 140.0-450.0 Hemoglobin [Mass/volume] in Blood 2024-04-19 00:24:15 11.6 g/dL F 14.0-18.0 MCH [Entitic mass] by Automated count 2024-04-19 00:24:15 35.1 pg F 25.9-34.2 MCHC [Mass/volume] by Automated count 2024-04-19 00:24:15 32.1 g/dL F 29.6-35.3 Erythrocytes [#/volume] in Blood by Automated count 2024-04-19 00:24:15 3.3 x 10^6 cells/uL F 4.6-6.2 Hematocrit [Volume Fraction] of Blood by Automated count 2024-04-19 00:24:15 36 % F 41.0-53.0 MCV [Entitic volume] by Automated count 2024-04-19 00:24:15 109.2 fL F 80.0-100.0 IRON SATURATION 2024-03-22 09:34:57 34 % F 21.0-49.0 TIBC 2024-03-22 09:34:57 257 ug/dL F 250.0-425.0 Iron [Mass/volume] in Serum or Plasma 2024-03-22 07:02:50 88 ug/dL F 65.0-175.0 Iron binding capacity.unsaturated [Mass/volume] in Serum or Plasma 2024-03-22 07:02:50 169 ug/dL F 75.0-360.0 Ferritin [Mass/volume] in Serum or Plasma 2024-03-22 03:44:44 268 ng/mL F 22.0-322.0 HCT CALC HGBX3 2024-03-21 18:27:08 31.5 % F 42.0-52.0 Erythrocyte distribution width [Ratio] by Automated count 2024-03-21 18:26:19 16.5 % F 11.0-15.0 Hemoglobin [Mass/volume] in Blood 2024-03-21 18:26:19 10.5 g/dL F 14.0-18.0 Platelets [#/volume] in Blood by Automated count 2024-03-21 18:26:19 156 x 10^3 cells/uL F 140.0-450.0 MCH [Entitic mass] by Automated count 2024-03-21 18:26:19 36.6 pg F 25.9-34.2 MCHC [Mass/volume] by Automated count 2024-03-21 18:26:19 35 g/dL F 29.6-35.3 Erythrocytes [#/volume] in Blood by Automated count 2024-03-21 18:26:19 2.86 x 10^6 cells/uL F 4.6-6.2 Hematocrit [Volume Fraction] of Blood by Automated count 2024-03-21 18:26:19 30 % F 41.0-53.0 MCV [Entitic volume] by Automated count 2024-03-21 18:26:19 104.7 fL F 80.0-100.0 HCT CALC HGBX3 2024-03-06 14:34:13 F RECOLLECT - OUTDATED SPECIMEN,Unable to Calculate. Platelets [#/volume] in Blood by Automated count 2024-03-06 14:34:10 F RECOLLECT - OUTDATED SPECIMEN MCH [Entitic mass] by Automated count 2024-03-06 14:34:10 F RECOLLECT - OUTDATED SPECIMEN Hematocrit [Volume Fraction] of Blood by Automated count 2024-03-06 14:34:10 F RECOLLECT - OUTDATED SPECIMEN MCHC [Mass/volume] by Automated count 2024-03-06 14:34:10 F RECOLLECT - OUTDATED SPECIMEN Erythrocytes [#/volume] in Blood by Automated count 2024-03-06 14:34:10 F RECOLLECT - OUTDATED SPECIMEN Erythrocyte distribution width [Ratio] by Automated count 2024-03-06 14:34:10 F RECOLLECT - OUTDATED SPECIMEN Hemoglobin [Mass/volume] in Blood 2024-03-06 14:34:10 F RECOLLECT - OUTDATED SPECIMEN MCV [Entitic volume] by Automated count 2024-03-06 14:34:10 F RECOLLECT - OUTDATED SPECIMEN HCT CALC HGBX3 2024-01-20 14:53:26 31.5 % F 42.0-52.0 Erythrocyte distribution width [Ratio] by Automated count 2024-01-20 14:52:14 15.6 % F 11.0-15.0 Hemoglobin [Mass/volume] in Blood 2024-01-20 14:52:14 10.5 g/dL F 14.0-18.0 Platelets [#/volume] in Blood by Automated count 2024-01-20 14:52:14 198 x 10^3 cells/uL F 140.0-450.0 MCH [Entitic mass] by Automated count 2024-01-20 14:52:14 35.8 pg F 25.9-34.2 MCHC [Mass/volume] by Automated count 2024-01-20 14:52:14 34.3 g/dL F 29.6-35.3 Erythrocytes [#/volume] in Blood by Automated count 2024-01-20 14:52:14 2.94 x 10'6 cells/uL F 4.6-6.2 Hematocrit [Volume Fraction] of Blood by Automated count 2024-01-20 14:52:14 30.7 % F 41.0-53.0 MCV [Entitic volume] by Automated count 2024-01-20 14:52:14 104.4 fL F 80.0-100.0 IRON SATURATION 2023-12-24 04:07:56 39 % F 21.0-49.0 TIBC 2023-12-24 04:07:56 244 ug/dL F 250.0-425.0 Iron [Mass/volume] in Serum or Plasma 2023-12-24 03:59:59 96 ug/dL F 65.0-175.0 Iron binding capacity.unsaturated [Mass/volume] in Serum or Plasma 2023-12-24 03:59:59 148 ug/dL F 75.0-360.0 Ferritin [Mass/volume] in Serum or Plasma 2023-12-24 02:17:05 333 ng/mL F 22.0-322.0 HCT CALC HGBX3 2023-12-23 13:50:12 33 % F 42.0-52.0 Erythrocyte distribution width [Ratio] by Automated count 2023-12-23 13:49:18 16 % F 11.0-15.0 Hemoglobin [Mass/volume] in Blood 2023-12-23 13:49:18 11 g/dL F 14.0-18.0 Platelets [#/volume] in Blood by Automated count 2023-12-23 13:49:18 140 x 10^3 cells/uL F 140.0-450.0 MCH [Entitic mass] by Automated count 2023-12-23 13:49:18 34.1 pg F 25.9-34.2 MCHC [Mass/volume] by Automated count 2023-12-23 13:49:18 33.1 g/dL F 29.6-35.3 Erythrocytes [#/volume] in Blood by Automated count 2023-12-23 13:49:18 3.24 x 10'6 cells/uL F 4.6-6.2 Hematocrit [Volume Fraction] of Blood by Automated count 2023-12-23 13:49:18 33.3 % F 41.0-53.0 MCV [Entitic volume] by Automated count 2023-12-23 13:49:18 103 fL F 80.0-100.0 HCT CALC HGBX3 2023-11-26 16:34:57 33.9 % F 42.0-52.0 MCH [Entitic mass] by Automated count 2023-11-26 16:34:12 34.2 pg F 25.9-34.2 MCHC [Mass/volume] by Automated count 2023-11-26 16:34:12 33.2 g/dL F 29.6-35.3 MCV [Entitic volume] by Automated count 2023-11-26 16:34:12 103.3 fL F 80.0-100.0 Erythrocyte distribution width [Ratio] by Automated count 2023-11-26 16:34:11 15.7 % F 11.0-15.0 Platelets [#/volume] in Blood by Automated count 2023-11-26 16:34:11 167 x 10^3 cells/uL F 140.0-450.0 Hemoglobin [Mass/volume] in Blood 2023-11-26 16:34:11 11.3 g/dL F 14.0-18.0 Erythrocytes [#/volume] in Blood by Automated count 2023-11-26 16:34:11 3.3 x 10'6 cells/uL F 4.6-6.2 Hematocrit [Volume Fraction] of Blood by Automated count 2023-11-26 16:34:11 34.1 % F 41.0-53.0 HCT CALC HGBX3 2023-10-21 22:32:21 32.4 % F 42.0-52.0 Erythrocyte distribution width [Ratio] by Automated count 2023-10-21 22:31:41 15.5 % F 11.0-15.0 MCHC [Mass/volume] by Automated count 2023-10-21 22:31:41 33.8 g/dL F 29.6-35.3 Platelets [#/volume] in Blood by Automated count 2023-10-21 22:31:38 126 x 10^3 cells/uL F 140.0-450.0 Hemoglobin [Mass/volume] in Blood 2023-10-21 22:31:38 10.8 g/dL F 14.0-18.0 MCH [Entitic mass] by Automated count 2023-10-21 22:31:38 35.1 pg F 25.9-34.2 Erythrocytes [#/volume] in Blood by Automated count 2023-10-21 22:31:38 3.06 x 10'6 cells/uL F 4.6-6.2 Hematocrit [Volume Fraction] of Blood by Automated count 2023-10-21 22:31:38 31.8 % F 41.0-53.0 MCV [Entitic volume] by Automated count 2023-10-21 22:31:38 104.1 fL F 80.0-100.0 IRON SATURATION 2023-09-29 03:54:27 27 % F 21.0-49.0 TIBC 2023-09-29 03:54:27 222 ug/dL F 250.0-425.0 Iron binding capacity.unsaturated [Mass/volume] in Serum or Plasma 2023-09-29 03:49:47 163 ug/dL F 75.0-360.0 Ferritin [Mass/volume] in Serum or Plasma 2023-09-29 00:16:26 224 ng/mL F 22.0-322.0 HCT CALC HGBX3 2023-09-28 23:38:55 32.4 % F 42.0-52.0 Erythrocyte distribution width [Ratio] by Automated count 2023-09-28 23:38:38 14.4 % F 11.0-15.0 Hemoglobin [Mass/volume] in Blood 2023-09-28 23:38:38 10.8 g/dL F 14.0-18.0 Platelets [#/volume] in Blood by Automated count 2023-09-28 23:38:38 141 x 10^3 cells/uL F 140.0-450.0 MCH [Entitic mass] by Automated count 2023-09-28 23:38:38 33.7 pg F 25.9-34.2 MCHC [Mass/volume] by Automated count 2023-09-28 23:38:38 31.9 g/dL F 29.6-35.3 Erythrocytes [#/volume] in Blood by Automated count 2023-09-28 23:38:38 3.21 x 10'6 cells/uL F 4.6-6.2 Hematocrit [Volume Fraction] of Blood by Automated count 2023-09-28 23:38:38 34 % F 41.0-53.0 MCV [Entitic volume] by Automated count 2023-09-28 23:38:38 105.8 fL F 80.0-100.0 Iron [Mass/volume] in Serum or Plasma 2023-09-28 18:29:07 59 ug/dL F 65.0-175.0 IRON SATURATION 2023-09-23 15:16:02 F Recollect - Shipping temp out of range TIBC 2023-09-23 15:16:02 F Recollect - Shipping temp out of range HCT CALC HGBX3 2023-09-23 15:16:02 F Recollect - Shipping temp out of range MCV [Entitic volume] by Automated count 2023-09-23 15:15:28 F Recollect - Shipping temp out of range Hematocrit [Volume Fraction] of Blood by Automated count 2023-09-23 15:15:28 F Recollect - Shipping temp out of range MCHC [Mass/volume] by Automated count 2023-09-23 15:15:28 F Recollect - Shipping temp out of range Hemoglobin [Mass/volume] in Blood 2023-09-23 15:15:28 F Recollect - Shipping temp out of range Platelets [#/volume] in Blood by Automated count 2023-09-23 15:15:28 F Recollect - Shipping temp out of range Erythrocytes [#/volume] in Blood by Automated count 2023-09-23 15:15:28 F Recollect - Shipping temp out of range Erythrocyte distribution width [Ratio] by Automated count 2023-09-23 15:15:28 F Recollect - Shipping temp out of range MCH [Entitic mass] by Automated count 2023-09-23 15:15:28 F Recollect - Shipping temp out of range Ferritin [Mass/volume] in Serum or Plasma 2023-09-23 15:15:28 F Recollect - Shipping temp out of range Iron binding capacity.unsaturated [Mass/volume] in Serum or Plasma 2023-09-23 15:14:32 F Recollect - Shipping temp out of range Iron [Mass/volume] in Serum or Plasma 2023-09-23 15:14:32 F Recollect - Shipping temp out of range HCT CALC HGBX3 2023-08-19 02:46:16 26.4 % F 42.0-52.0 Erythrocyte distribution width [Ratio] by Automated count 2023-08-19 02:35:29 14.3 % F 11.0-15.0 Hemoglobin [Mass/volume] in Blood 2023-08-19 02:35:29 8.8 g/dL F 14.0-18.0 Platelets [#/volume] in Blood by Automated count 2023-08-19 02:35:29 145 x 10^3 cells/uL F 140.0-450.0 MCHC [Mass/volume] by Automated count 2023-08-19 02:35:29 32.7 g/dL F 29.6-35.3 MCH [Entitic mass] by Automated count 2023-08-19 02:35:29 35.6 pg F 25.9-34.2 Erythrocytes [#/volume] in Blood by Automated count 2023-08-19 02:35:29 2.47 x 10'6 cells/uL F 4.6-6.2 Hematocrit [Volume Fraction] of Blood by Automated count 2023-08-19 02:35:29 27 % F 41.0-53.0 MCV [Entitic volume] by Automated count 2023-08-19 02:35:29 109 fL F 80.0-100.0 IRON SATURATION 2023-08-18 07:45:48 27 % F 21.0-49.0 TIBC 2023-08-18 07:45:48 230 ug/dL F 250.0-425.0 Iron [Mass/volume] in Serum or Plasma 2023-08-18 07:34:08 61 ug/dL F 65.0-175.0 Iron binding capacity.unsaturated [Mass/volume] in Serum or Plasma 2023-08-18 07:34:08 169 ug/dL F 75.0-360.0 Ferritin [Mass/volume] in Serum or Plasma 2023-08-18 06:43:55 260 ng/mL F 22.0-322.0 IRON SATURATION 2023-05-13 07:33:13 21 % F 21.0-49.0 TIBC 2023-05-13 07:33:13 237 ug/dL F 250.0-425.0 Iron [Mass/volume] in Serum or Plasma 2023-05-13 07:31:21 49 ug/dL F 65.0-175.0 Iron binding capacity.unsaturated [Mass/volume] in Serum or Plasma 2023-05-13 07:31:21 188 ug/dL F 75.0-360.0 Ferritin [Mass/volume] in Serum or Plasma 2023-05-13 06:51:13 386 ng/mL F 22.0-322.0 HCT CALC HGBX3 2023-05-13 01:54:12 34.2 % F 42.0-52.0 Reticulocytes/100 erythrocytes in Blood by Automated count 2023-05-13 01:53:27 1.82 % F 0.7-2.5 Erythrocyte distribution width [Ratio] by Automated count 2023-05-13 01:53:27 14.4 % F 11.0-15.0 Hemoglobin [Mass/volume] in Blood 2023-05-13 01:53:27 11.4 g/dL F 14.0-18.0 Platelets [#/volume] in Blood by Automated count 2023-05-13 01:53:27 151 x 10^3 cells/uL F 140.0-450.0 MCH [Entitic mass] by Automated count 2023-05-13 01:53:27 34.8 pg F 25.9-34.2 MCHC [Mass/volume] by Automated count 2023-05-13 01:53:27 34.5 g/dL F 29.6-35.3 Erythrocytes [#/volume] in Blood by Automated count 2023-05-13 01:53:27 3.27 x 10'6 cells/uL F 4.6-6.2 Hematocrit [Volume Fraction] of Blood by Automated count 2023-05-13 01:53:27 33 % F 41.0-53.0 MCV [Entitic volume] by Automated count 2023-05-13 01:53:27 101 fL F 80.0-100.0 IRON SATURATION 2023-04-15 08:51:54 31 % F 21.0-49.0 TIBC 2023-04-15 08:51:54 239 ug/dL F 250.0-425.0 Iron [Mass/volume] in Serum or Plasma 2023-04-15 08:25:09 74 ug/dL F 65.0-175.0 Iron binding capacity.unsaturated [Mass/volume] in Serum or Plasma 2023-04-15 08:25:09 165 ug/dL F 75.0-360.0 Ferritin [Mass/volume] in Serum or Plasma 2023-04-15 08:16:42 392 ng/mL F 22.0-322.0 HCT CALC HGBX3 2023-04-15 03:14:09 33.3 % F 42.0-52.0 Hematocrit [Volume Fraction] of Blood by Automated count 2023-04-15 03:12:56 32.3 % F 41.0-53.0 Erythrocytes [#/volume] in Blood by Automated count 2023-04-15 03:12:56 3.07 x 10'6 cells/uL F 4.6-6.2 MCV [Entitic volume] by Automated count 2023-04-15 03:12:56 105.2 fL F 80.0-100.0 Reticulocytes/100 erythrocytes in Blood by Automated count 2023-04-15 03:12:56 1.93 % F 0.7-2.5 Erythrocyte distribution width [Ratio] by Automated count 2023-04-15 03:12:56 15.3 % F 11.0-15.0 Hemoglobin [Mass/volume] in Blood 2023-04-15 03:12:56 11.1 g/dL F 14.0-18.0 Platelets [#/volume] in Blood by Automated count 2023-04-15 03:12:56 152 x 10^3 cells/uL F 140.0-450.0 MCH [Entitic mass] by Automated count 2023-04-15 03:12:56 36 pg F 25.9-34.2 MCHC [Mass/volume] by Automated count 2023-04-15 03:12:56 34.3 g/dL F 29.6-35.3 Ferritin [Mass/volume] in Serum or Plasma 2023-03-24 08:11:01 492 ng/mL F 22.0-322.0 IRON SATURATION 2023-03-24 07:34:52 24 % F 21.0-49.0 TIBC 2023-03-24 07:34:52 209 ug/dL F 250.0-425.0 Iron [Mass/volume] in Serum or Plasma 2023-03-24 07:30:45 50 ug/dL F 65.0-175.0 Iron binding capacity.unsaturated [Mass/volume] in Serum or Plasma 2023-03-24 07:30:45 159 ug/dL F 75.0-360.0 HCT CALC HGBX3 2023-03-23 17:20:48 32.7 % F 42.0-52.0 Reticulocytes/100 erythrocytes in Blood by Automated count 2023-03-23 17:20:16 1.97 % F 0.7-2.5 Erythrocyte distribution width [Ratio] by Automated count 2023-03-23 17:20:16 13 % F 11.0-15.0 Hemoglobin [Mass/volume] in Blood 2023-03-23 17:20:16 10.9 g/dL F 14.0-18.0 Platelets [#/volume] in Blood by Automated count 2023-03-23 17:20:16 325 x 10^3 cells/uL F 140.0-450.0 MCH [Entitic mass] by Automated count 2023-03-23 17:20:16 35.2 pg F 25.9-34.2 MCHC [Mass/volume] by Automated count 2023-03-23 17:20:16 34.3 g/dL F 29.6-35.3 Hematocrit [Volume Fraction] of Blood by Automated count 2023-03-23 17:20:16 31.8 % F 41.0-53.0 Erythrocytes [#/volume] in Blood by Automated count 2023-03-23 17:20:16 3.1 x 10'6 cells/uL F 4.6-6.2 MCV [Entitic volume] by Automated count 2023-03-23 17:20:16 102.6 fL F 80.0-100.0 IRON SATURATION 2023-02-10 02:50:21 28 % F 21.0-49.0 TIBC 2023-02-10 02:50:21 247 ug/dL F 250.0-425.0 Iron [Mass/volume] in Serum or Plasma 2023-02-10 02:48:46 68 ug/dL F 65.0-175.0 Iron binding capacity.unsaturated [Mass/volume] in Serum or Plasma 2023-02-10 02:48:46 179 ug/dL F 75.0-360.0 Ferritin [Mass/volume] in Serum or Plasma 2023-02-10 02:37:40 242 ng/mL F 22.0-322.0 HCT CALC HGBX3 2023-02-09 22:34:24 33.9 % F 42.0-52.0 Hemoglobin [Mass/volume] in Blood 2023-02-09 22:33:36 11.3 g/dL F 14.0-18.0 Reticulocytes/100 erythrocytes in Blood by Automated count 2023-02-09 22:33:34 2.51 % F 0.7-2.5 Erythrocyte distribution width [Ratio] by Automated count 2023-02-09 22:33:34 13.9 % F 11.0-15.0 Platelets [#/volume] in Blood by Automated count 2023-02-09 22:33:34 173 x 10^3 cells/uL F 140.0-450.0 MCH [Entitic mass] by Automated count 2023-02-09 22:33:34 37 pg F 25.9-34.2 MCHC [Mass/volume] by Automated count 2023-02-09 22:33:34 35.7 g/dL F 29.6-35.3 Erythrocytes [#/volume] in Blood by Automated count 2023-02-09 22:33:34 3.07 x 10'6 cells/uL F 4.6-6.2 Hematocrit [Volume Fraction] of Blood by Automated count 2023-02-09 22:33:34 31.8 % F 41.0-53.0 MCV [Entitic volume] by Automated count 2023-02-09 22:33:34 103.6 fL F 80.0-100.0 Ferritin [Mass/volume] in Serum or Plasma 2022-12-10 05:00:54 347 ng/mL F 22.0-322.0 IRON SATURATION 2022-12-09 17:14:26 38 % F 21.0-49.0 TIBC 2022-12-09 17:14:26 226 ug/dL F 250.0-425.0 Iron [Mass/volume] in Serum or Plasma 2022-12-09 17:12:48 86 ug/dL F 65.0-175.0 Iron binding capacity.unsaturated [Mass/volume] in Serum or Plasma 2022-12-09 17:12:48 140 ug/dL F 75.0-360.0 HCT CALC HGBX3 2022-12-09 14:20:43 33.9 % F 42.0-52.0 Reticulocytes/100 erythrocytes in Blood by Automated count 2022-12-09 14:20:36 2.24 % F 0.7-2.5 Erythrocyte distribution width [Ratio] by Automated count 2022-12-09 14:20:36 13.9 % F 11.0-15.0 Hemoglobin [Mass/volume] in Blood 2022-12-09 14:20:36 11.3 g/dL F 14.0-18.0 Platelets [#/volume] in Blood by Automated count 2022-12-09 14:20:36 186 x 10^3 cells/uL F 140.0-450.0 Erythrocytes [#/volume] in Blood by Automated count 2022-12-09 14:20:36 3.17 x 10'6 cells/uL F 4.6-6.2 Hematocrit [Volume Fraction] of Blood by Automated count 2022-12-09 14:20:36 32.7 % F 41.0-53.0 MCV [Entitic volume] by Automated count 2022-12-09 14:20:36 103 fL F 80.0-100.0 MCH [Entitic mass] by Automated count 2022-12-09 14:20:34 35.7 pg F 25.9-34.2 MCHC [Mass/volume] by Automated count 2022-12-09 14:20:34 34.7 g/dL F 29.6-35.3 IRON SATURATION 2022-11-10 07:35:42 46 % F 21.0-49.0 TIBC 2022-11-10 07:35:42 233 ug/dL F 250.0-425.0 Iron binding capacity.unsaturated [Mass/volume] in Serum or Plasma 2022-11-10 07:22:47 126 ug/dL F 75.0-360.0 Iron [Mass/volume] in Serum or Plasma 2022-11-10 07:22:45 107 ug/dL F 65.0-175.0 Ferritin [Mass/volume] in Serum or Plasma 2022-11-10 06:52:34 376 ng/mL F 22.0-322.0 HCT CALC HGBX3 2022-11-10 06:17:13 35.4 % F 42.0-52.0 Reticulocytes/100 erythrocytes in Blood by Automated count 2022-11-10 06:16:35 4.19 % F 0.7-2.5 Erythrocyte distribution width [Ratio] by Automated count 2022-11-10 06:16:35 12.5 % F 11.0-15.0 Hemoglobin [Mass/volume] in Blood 2022-11-10 06:16:35 11.8 g/dL F 14.0-18.0 Platelets [#/volume] in Blood by Automated count 2022-11-10 06:16:35 168 x 10^3 cells/uL F 140.0-450.0 MCH [Entitic mass] by Automated count 2022-11-10 06:16:35 36.1 pg F 25.9-34.2 MCHC [Mass/volume] by Automated count 2022-11-10 06:16:35 34.6 g/dL F 29.6-35.3 Erythrocytes [#/volume] in Blood by Automated count 2022-11-10 06:16:35 3.27 x 10'6 cells/uL F 4.6-6.2 Hematocrit [Volume Fraction] of Blood by Automated count 2022-11-10 06:16:35 34.1 % F 41.0-53.0 MCV [Entitic volume] by Automated count 2022-11-10 06:16:35 104.3 fL F 80.0-100.0 IRON SATURATION 2022-10-14 05:47:16 37 % F 21.0-49.0 TIBC 2022-10-14 05:47:16 240 ug/dL F 250.0-425.0 Iron [Mass/volume] in Serum or Plasma 2022-10-14 05:42:19 88 ug/dL F 65.0-175.0 Iron binding capacity.unsaturated [Mass/volume] in Serum or Plasma 2022-10-14 05:42:19 152 ug/dL F 75.0-360.0 Ferritin [Mass/volume] in Serum or Plasma 2022-10-14 02:43:42 356 ng/mL F 22.0-322.0 HCT CALC HGBX3 2022-10-13 15:58:13 35.4 % F 42.0-52.0 Reticulocytes/100 erythrocytes in Blood by Automated count 2022-10-13 15:57:37 2.45 % F 0.7-2.5 Erythrocyte distribution width [Ratio] by Automated count 2022-10-13 15:57:37 13.9 % F 11.0-15.0 Platelets [#/volume] in Blood by Automated count 2022-10-13 15:57:37 170 x 10^3 cells/uL F 140.0-450.0 Hemoglobin [Mass/volume] in Blood 2022-10-13 15:57:37 11.8 g/dL F 14.0-18.0 MCH [Entitic mass] by Automated count 2022-10-13 15:57:37 37.1 pg F 25.9-34.2 MCHC [Mass/volume] by Automated count 2022-10-13 15:57:37 35.3 g/dL F 29.6-35.3 Erythrocytes [#/volume] in Blood by Automated count 2022-10-13 15:57:37 3.18 x 10'6 cells/uL F 4.6-6.2 Hematocrit [Volume Fraction] of Blood by Automated count 2022-10-13 15:57:37 33.4 % F 41.0-53.0 MCV [Entitic volume] by Automated count 2022-10-13 15:57:37 105.1 fL F 80.0-100.0 IRON SATURATION 2022-09-12 02:06:44 33 % F 21.0-49.0 TIBC 2022-09-12 02:06:44 232 ug/dL F 250.0-425.0 Iron [Mass/volume] in Serum or Plasma 2022-09-12 02:01:42 77 ug/dL F 65.0-175.0 Iron binding capacity.unsaturated [Mass/volume] in Serum or Plasma 2022-09-12 02:01:42 155 ug/dL F 75.0-360.0 HCT CALC HGBX3 2022-09-11 21:56:39 34.2 % F 42.0-52.0 Reticulocytes/100 erythrocytes in Blood by Automated count 2022-09-11 21:56:29 2.21 % F 0.7-2.5 Erythrocyte distribution width [Ratio] by Automated count 2022-09-11 21:56:29 14.5 % F 11.0-15.0 Hemoglobin [Mass/volume] in Blood 2022-09-11 21:56:29 11.4 g/dL F 14.0-18.0 Platelets [#/volume] in Blood by Automated count 2022-09-11 21:56:29 184 x 10^3 cells/uL F 140.0-450.0 MCH [Entitic mass] by Automated count 2022-09-11 21:56:29 35.3 pg F 25.9-34.2 MCHC [Mass/volume] by Automated count 2022-09-11 21:56:29 32.3 g/dL F 29.6-35.3 Erythrocytes [#/volume] in Blood by Automated count 2022-09-11 21:56:29 3.22 x 10'6 cells/uL F 4.6-6.2 Hematocrit [Volume Fraction] of Blood by Automated count 2022-09-11 21:56:29 35.3 % F 41.0-53.0 MCV [Entitic volume] by Automated count 2022-09-11 21:56:29 109.5 fL F 80.0-100.0 Ferritin [Mass/volume] in Serum or Plasma 2022-09-11 18:46:27 444 ng/mL F 22.0-322.0 Ferritin [Mass/volume] in Serum or Plasma 2022-07-14 04:53:13 317 ng/mL F 22.0-322.0 HCT CALC HGBX3 2022-07-13 20:35:32 33.3 % F 42.0-52.0 Reticulocytes/100 erythrocytes in Blood by Automated count 2022-07-13 20:35:08 2.43 % F 0.7-2.5 Erythrocyte distribution width [Ratio] by Automated count 2022-07-13 20:35:08 14.3 % F 11.0-15.0 Hemoglobin [Mass/volume] in Blood 2022-07-13 20:35:08 11.1 g/dL F 14.0-18.0 Platelets [#/volume] in Blood by Automated count 2022-07-13 20:35:08 151 x 10^3 cells/uL F 140.0-450.0 MCH [Entitic mass] by Automated count 2022-07-13 20:35:08 34.9 pg F 25.9-34.2 MCHC [Mass/volume] by Automated count 2022-07-13 20:35:08 33.9 g/dL F 29.6-35.3 Erythrocytes [#/volume] in Blood by Automated count 2022-07-13 20:35:08 3.18 x 10'6 cells/uL F 4.6-6.2 Hematocrit [Volume Fraction] of Blood by Automated count 2022-07-13 20:35:08 32.8 % F 41.0-53.0 MCV [Entitic volume] by Automated count 2022-07-13 20:35:08 102.9 fL F 80.0-100.0 TIBC 2022-07-13 18:48:59 F Recollect - Unspun specimen IRON SATURATION 2022-07-13 18:48:59 F Recollect - Unspun specimen Iron [Mass/volume] in Serum or Plasma 2022-07-13 18:47:47 F Recollect - Unspun specimen Iron binding capacity.unsaturated [Mass/volume] in Serum or Plasma 2022-07-13 18:47:47 F Recollect - Unspun specimen Comorbidities Description Draw Date Result/Unit Status Ref Range Result Comments Hemoglobin A1c/Hemoglobin.total in Blood 2024-09-21 20:09:18 6 %A1c F 0.0-5.6 Hemoglobin A1c/Hemoglobin.total in Blood 2024-05-18 01:00:22 6.6 %A1c F 0.0-5.6 Hemoglobin A1c/Hemoglobin.total in Blood 2023-05-13 05:43:11 7.3 %A1c F 0.0-5.6 Hemoglobin A1c/Hemoglobin.total in Blood 2023-02-10 08:24:24 7 %A1c F 0.0-5.6 Hemoglobin A1c/Hemoglobin.total in Blood 2022-11-10 18:59:27 7.3 %A1c F 0.0-5.6 FluidBP Description Draw Date Result/Unit Status Ref Range Result Comments Sodium [Moles/volume] in Serum or Plasma 2024-10-20 06:12:01 142 mEq/L F 136.0-145.0 Sodium [Moles/volume] in Serum or Plasma 2024-09-22 02:48:38 141 mEq/L F 136.0-145.0 Sodium [Moles/volume] in Serum or Plasma 2024-06-08 17:57:20 137 mEq/L F 132.0-146.0 Sodium [Moles/volume] in Serum or Plasma 2024-04-19 07:06:58 134 mEq/L F 132.0-146.0 Sodium [Moles/volume] in Serum or Plasma 2024-03-22 07:02:50 130 mEq/L F 132.0-146.0 Sodium [Moles/volume] in Serum or Plasma 2024-03-06 18:14:35 128 mEq/L F 132.0-146.0 Sodium [Moles/volume] in Serum or Plasma 2024-01-21 05:29:44 134 mEq/L F 132.0-146.0 Sodium [Moles/volume] in Serum or Plasma 2023-12-24 03:59:59 134 mEq/L F 132.0-146.0 Sodium [Moles/volume] in Serum or Plasma 2023-11-26 07:26:56 134 mEq/L F 132.0-146.0 Sodium [Moles/volume] in Serum or Plasma 2023-10-22 04:44:53 136 mEq/L F 132.0-146.0 Sodium [Moles/volume] in Serum or Plasma 2023-09-28 18:29:07 135 mEq/L F 132.0-146.0 Sodium [Moles/volume] in Serum or Plasma 2023-09-23 15:14:32 F Recollect - Shipping temp out of range Sodium [Moles/volume] in Serum or Plasma 2023-08-18 07:34:08 137 mEq/L F 132.0-146.0 Sodium [Moles/volume] in Serum or Plasma 2023-05-13 07:31:23 134 mEq/L F 132.0-146.0 Sodium [Moles/volume] in Serum or Plasma 2023-04-15 08:25:04 135 mEq/L F 132.0-146.0 Sodium [Moles/volume] in Serum or Plasma 2023-03-24 07:30:45 136 mEq/L F 132.0-146.0 Sodium [Moles/volume] in Serum or Plasma 2023-02-10 02:48:46 135 mEq/L F 132.0-146.0 Sodium [Moles/volume] in Serum or Plasma 2022-12-09 15:38:35 138 mEq/L F 132.0-146.0 Sodium [Moles/volume] in Serum or Plasma 2022-11-10 00:12:44 137 mEq/L F 132.0-146.0 Sodium [Moles/volume] in Serum or Plasma 2022-10-13 17:05:29 140 mEq/L F 132.0-146.0 Sodium [Moles/volume] in Serum or Plasma 2022-09-11 23:42:26 136 mEq/L F 132.0-146.0 Sodium [Moles/volume] in Serum or Plasma 2022-07-13 18:47:47 F Recollect - Unsp un specimen General Description Draw Date Result/Unit Status Ref Range Result Comments Chloride [Moles/volume] in Serum or Plasma 2024-10-20 06:12:01 103 mEq/L F 98.0-107.0 Alanine aminotransferase [Enzymatic activity/volume] in Serum or Plasma 2024-10-20 02:23:16 18 U/L F 10.0-49.0 Aspartate aminotransferase [Enzymatic activity/volume] in Serum or Plasma 2024-10-20 02:23:16 21 U/L F 0.0-33.0 Chloride [Moles/volume] in Serum or Plasma 2024-09-22 02:48:38 101 mEq/L F 98.0-107.0 Alanine aminotransferase [Enzymatic activity/volume] in Serum or Plasma 2024-09-21 20:02:13 18 U/L F 10.0-49.0 Aspartate aminotransferase [Enzymatic activity/volume] in Serum or Plasma 2024-09-21 20:02:13 22 U/L F 0.0-33.0 Aluminum [Mass/volume] in Serum or Plasma 2024-09-12 17:35:23 10 ug/L F 0.0-9.0 Chloride [Moles/volume] in Serum or Plasma 2024-06-08 17:57:20 104 mEq/L F 99.0-109.0 Aspartate aminotransferase [Enzymatic activity/volume] in Serum or Plasma 2024-06-08 14:10:20 22 U/L F 0.0-33.0 Alanine aminotransferase [Enzymatic activity/volume] in Serum or Plasma 2024-06-08 14:10:20 21 U/L F 10.0-49.0 Chloride [Moles/volume] in Serum or Plasma 2024-04-19 07:06:58 99 mEq/L F 99.0-109.0 Aspartate aminotransferase [Enzymatic activity/volume] in Serum or Plasma 2024-04-19 04:25:19 26 U/L F 0.0-33.0 Alanine aminotransferase [Enzymatic activity/volume] in Serum or Plasma 2024-04-19 04:25:19 20 U/L F 10.0-49.0 Chloride [Moles/volume] in Serum or Plasma 2024-03-22 07:02:50 93 mEq/L F 99.0-109.0 Aspartate aminotransferase [Enzymatic activity/volume] in Serum or Plasma 2024-03-21 16:24:21 22 U/L F 0.0-33.0 Alanine aminotransferase [Enzymatic activity/volume] in Serum or Plasma 2024-03-21 16:24:21 15 U/L F 10.0-49.0 Chloride [Moles/volume] in Serum or Plasma 2024-03-06 18:14:35 92 mEq/L F 99.0-109.0 Aspartate aminotransferase [Enzymatic activity/volume] in Serum or Plasma 2024-03-06 16:10:24 31 U/L F 0.0-33.0 Alanine aminotransferase [Enzymatic activity/volume] in Serum or Plasma 2024-03-06 16:10:24 24 U/L F 10.0-49.0 Chloride [Moles/volume] in Serum or Plasma 2024-01-21 05:29:44 96 mEq/L F 99.0-109.0 Aspartate aminotransferase [Enzymatic activity/volume] in Serum or Plasma 2024-01-20 22:11:20 23 U/L F 0.0-33.0 Alanine aminotransferase [Enzymatic activity/volume] in Serum or Plasma 2024-01-20 22:11:20 20 U/L F 10.0-49.0 Chloride [Moles/volume] in Serum or Plasma 2023-12-24 03:59:59 96 mEq/L F 99.0-109.0 Aspartate aminotransferase [Enzymatic activity/volume] in Serum or Plasma 2023-12-23 16:01:20 24 U/L F 0.0-33.0 Alanine aminotransferase [Enzymatic activity/volume] in Serum or Plasma 2023-12-23 16:01:20 23 U/L F 10.0-49.0 Chloride [Moles/volume] in Serum or Plasma 2023-11-26 07:26:56 97 mEq/L F 99.0-109.0 Aspartate aminotransferase [Enzymatic activity/volume] in Serum or Plasma 2023-11-26 00:38:32 23 U/L F 0.0-33.0 Alanine aminotransferase [Enzymatic activity/volume] in Serum or Plasma 2023-11-26 00:38:32 29 U/L F 10.0-49.0 Chloride [Moles/volume] in Serum or Plasma 2023-10-22 04:44:53 100 mEq/L F 99.0-109.0 Aspartate aminotransferase [Enzymatic activity/volume] in Serum or Plasma 2023-10-21 20:59:19 22 U/L F 0.0-33.0 Alanine aminotransferase [Enzymatic activity/volume] in Serum or Plasma 2023-10-21 20:59:19 17 U/L F 10.0-49.0 Chloride [Moles/volume] in Serum or Plasma 2023-09-28 18:29:07 103 mEq/L F 99.0-109.0 Aspartate aminotransferase [Enzymatic activity/volume] in Serum or Plasma 2023-09-28 14:27:41 15 U/L F 0.0-33.0 Alanine aminotransferase [Enzymatic activity/volume] in Serum or Plasma 2023-09-28 14:27:41 13 U/L F 10.0-49.0 Chloride [Moles/volume] in Serum or Plasma 2023-09-23 15:14:32 F Recollect - Shipping temp out of range Aspartate aminotransferase [Enzymatic activity/volume] in Serum or Plasma 2023-09-23 15:14:32 F Recollect - Shipping temp out of range Alanine aminotransferase [Enzymatic activity/volume] in Serum or Plasma 2023-09-23 15:14:32 F Recollect - Shipping temp out of range Chloride [Moles/volume] in Serum or Plasma 2023-08-18 07:34:08 99 mEq/L F 99.0-109.0 Aspartate aminotransferase [Enzymatic activity/volume] in Serum or Plasma 2023-08-18 03:16:42 16 U/L F 0.0-33.0 Alanine aminotransferase [Enzymatic activity/volume] in Serum or Plasma 2023-08-18 03:16:42 11 U/L F 10.0-49.0 Aluminum [Mass/volume] in Serum or Plasma 2023-08-17 20:08:50 10 ug/L F 0.0-9.0 Aspartate aminotransferase [Enzymatic activity/volume] in Serum or Plasma 2023-05-13 00:49:33 18 U/L F 0.0-33.0 Aspartate aminotransferase [Enzymatic activity/volume] in Serum or Plasma 2023-04-15 03:22:52 22 U/L F 0.0-33.0 CAL PD 2023-03-23 19:28:04 see comments F Unable to Calculate. Aspartate aminotransferase [Enzymatic activity/volume] in Serum or Plasma 2023-03-23 19:27:57 20 U/L F 0.0-33.0 Aspartate aminotransferase [Enzymatic activity/volume] in Serum or Plasma 2023-02-10 00:00:03 24 U/L F 0.0-33.0 Alanine aminotransferase [Enzymatic activity/volume] in Serum or Plasma 2023-02-10 00:00:03 24 U/L F 10.0-49.0 Aluminum [Mass/volume] in Serum or Plasma 2023-02-09 20:28:09 10 ug/L F 0.0-9.0 CAL PD 2022-12-09 16:56:14 8.5 g/day F Aspartate aminotransferase [Enzymatic activity/volume] in Serum or Plasma 2022-12-09 15:38:35 24 U/L F 0.0-33.0 Aspartate aminotransferase [Enzymatic activity/volume] in Serum or Plasma 2022-11-10 00:12:44 22 U/L F 0.0-33.0 Aspartate aminotransferase [Enzymatic activity/volume] in Serum or Plasma 2022-10-13 17:05:29 22 U/L F 0.0-33.0 Aspartate aminotransferase [Enzymatic activity/volume] in Serum or Plasma 2022-09-11 23:42:26 25 U/L F 0.0-33.0 CAL PD 2022-09-11 19:52:29 6.6 g/day F Aspartate aminotransferase [Enzymatic activity/volume] in Serum or Plasma 2022-07-13 18:47:47 F Recollect - Unspun specimen InfectionVaccination Description Draw Date Result/Unit Status Ref Range Result Comments Basophils/100 leukocytes in Blood by Automated count 2024-10-19 21:55:23 0.3 % F Neutrophils/100 leukocytes in Blood by Automated count 2024-10-19 21:55:23 75.3 % F Monocytes/100 leukocytes in Blood by Automated count 2024-10-19 21:55:23 6.5 % F Eosinophils/100 leukocytes in Blood by Automated count 2024-10-19 21:55:23 3.1 % F Lymphocytes/100 leukocytes in Blood by Automated count 2024-10-19 21:55:23 14.7 % F Leukocytes [#/volume] in Blood by Automated count 2024-10-19 21:55:23 5.2 x 10^3 cells/uL F 4.0-11.0 Neutrophils [#/volume] in Blood by Automated count 2024-10-19 21:55:23 3908 Cells/uL F 2000.0-8800. 0 Lymphocytes [#/volume] in Blood by Automated count 2024-10-19 21:55:23 763 Cells/uL F 620.0-3660.0 Monocytes [#/volume] in Blood by Automated count 2024-10-19 21:55:23 337 Cells/uL F 0.0-1100.0 Basophils [#/volume] in Blood by Automated count 2024-10-19 21:55:23 16 Cells/uL F 0.0-400.0 Eosinophils [#/volume] in Blood by Automated count 2024-10-19 21:55:23 161 Cells/uL F 0.0-700.0 Basophils/100 leukocytes in Blood by Automated count 2024-09-21 19:29:21 0.7 % F Neutrophils/100 leukocytes in Blood by Automated count 2024-09-21 19:29:21 72.9 % F Lymphocytes/100 leukocytes in Blood by Automated count 2024-09-21 19:29:21 14.6 % F Monocytes/100 leukocytes in Blood by Automated count 2024-09-21 19:29:21 7.7 % F Eosinophils/100 leukocytes in Blood by Automated count 2024-09-21 19:29:21 4.1 % F Leukocytes [#/volume] in Blood by Automated count 2024-09-21 19:29:21 5.8 x 10^3 cells/uL F 4.0-11.0 Neutrophils [#/volume] in Blood by Automated count 2024-09-21 19:29:21 4199 Cells/uL F 2000.0-8800. 0 Lymphocytes [#/volume] in Blood by Automated count 2024-09-21 19:29:21 841 Cells/uL F 620.0-3660.0 Basophils [#/volume] in Blood by Automated count 2024-09-21 19:29:21 40 Cells/uL F 0.0-400.0 Monocytes [#/volume] in Blood by Automated count 2024-09-21 19:29:21 444 Cells/uL F 0.0-1100.0 Eosinophils [#/volume] in Blood by Automated count 2024-09-21 19:29:21 236 Cells/uL F 0.0-700.0 Monocytes/100 leukocytes in Blood by Automated count 2024-06-08 23:49:06 5.9 % F Lymphocytes/100 leukocytes in Blood by Automated count 2024-06-08 23:49:06 11.2 % F Basophils/100 leukocytes in Blood by Automated count 2024-06-08 23:49:06 0.4 % F Neutrophils/100 leukocytes in Blood by Automated count 2024-06-08 23:49:06 77.9 % F Eosinophils/100 leukocytes in Blood by Automated count 2024-06-08 23:49:06 4.6 % F Monocytes [#/volume] in Blood by Automated count 2024-06-08 23:49:06 366 Cells/uL F 0.0-1100.0 Basophils [#/volume] in Blood by Automated count 2024-06-08 23:49:06 25 Cells/uL F 0.0-400.0 Eosinophils [#/volume] in Blood by Automated count 2024-06-08 23:49:06 285 Cells/uL F 0.0-700.0 Neutrophils [#/volume] in Blood by Automated count 2024-06-08 23:49:06 4830 Cells/uL F 2000.0-8800. 0 Leukocytes [#/volume] in Blood by Automated count 2024-06-08 23:49:06 6.2 x 10^3 cells/uL F 4.0-11.0 Lymphocytes [#/volume] in Blood by Automated count 2024-06-08 23:49:06 694 Cells/uL F 620.0-3660.0 Neutrophils/100 leukocytes in Blood by Automated count 2024-04-19 00:24:15 76.5 % F Eosinophils/100 leukocytes in Blood by Automated count 2024-04-19 00:24:15 4.1 % F Basophils/100 leukocytes in Blood by Automated count 2024-04-19 00:24:15 0.7 % F Monocytes/100 leukocytes in Blood by Automated count 2024-04-19 00:24:15 6.6 % F Lymphocytes/100 leukocytes in Blood by Automated count 2024-04-19 00:24:15 12.1 % F Monocytes [#/volume] in Blood by Automated count 2024-04-19 00:24:15 339 Cells/uL F 0.0-1100.0 Basophils [#/volume] in Blood by Automated count 2024-04-19 00:24:15 36 Cells/uL F 0.0-400.0 Eosinophils [#/volume] in Blood by Automated count 2024-04-19 00:24:15 211 Cells/uL F 0.0-700.0 Neutrophils [#/volume] in Blood by Automated count 2024-04-19 00:24:15 3932 Cells/uL F 2000.0-8800. 0 Leukocytes [#/volume] in Blood by Automated count 2024-04-19 00:24:15 5.1 x 10^3 cells/uL F 4.0-11.0 Lymphocytes [#/volume] in Blood by Automated count 2024-04-19 00:24:15 622 Cells/uL F 620.0-3660.0 Basophils/100 leukocytes in Blood by Automated count 2024-03-21 18:26:19 0.4 % F Eosinophils/100 leukocytes in Blood by Automated count 2024-03-21 18:26:19 4.7 % F Monocytes/100 leukocytes in Blood by Automated count 2024-03-21 18:26:19 5.4 % F Lymphocytes/100 leukocytes in Blood by Automated count 2024-03-21 18:26:19 8.9 % F Neutrophils/100 leukocytes in Blood by Automated count 2024-03-21 18:26:19 80.6 % F Monocytes [#/volume] in Blood by Automated count 2024-03-21 18:26:19 346 Cells/uL F 0.0-1100.0 Eosinophils [#/volume] in Blood by Automated count 2024-03-21 18:26:19 301 Cells/uL F 0.0-700.0 Basophils [#/volume] in Blood by Automated count 2024-03-21 18:26:19 26 Cells/uL F 0.0-400.0 Neutrophils [#/volume] in Blood by Automated count 2024-03-21 18:26:19 5166 Cells/uL F 2000.0-8800. 0 Leukocytes [#/volume] in Blood by Automated count 2024-03-21 18:26:19 6.4 x 10^3 cells/uL F 4.0-11.0 Lymphocytes [#/volume] in Blood by Automated count 2024-03-21 18:26:19 570 Cells/uL F 620.0-3660.0 Monocytes [#/volume] in Blood by Automated count 2024-03-06 14:34:10 F RECOLLECT - OUTDATED SPECIMEN Lymphocytes/100 leukocytes in Blood by Automated count 2024-03-06 14:34:10 F RECOLLECT - OUTDATED SPECIMEN Eosinophils [#/volume] in Blood by Automated count 2024-03-06 14:34:10 F RECOLLECT - OUTDATED SPECIMEN Eosinophils/100 leukocytes in Blood by Automated count 2024-03-06 14:34:10 F RECOLLECT - OUTDATED SPECIMEN Basophils/100 leukocytes in Blood by Automated count 2024-03-06 14:34:10 F RECOLLECT - OUTDATED SPECIMEN Lymphocytes [#/volume] in Blood by Automated count 2024-03-06 14:34:10 F RECOLLECT - OUTDATED SPECIMEN Monocytes/100 leukocytes in Blood by Automated count 2024-03-06 14:34:10 F RECOLLECT - OUTDATED SPECIMEN Basophils [#/volume] in Blood by Automated count 2024-03-06 14:34:10 F RECOLLECT - OUTDATED SPECIMEN Leukocytes [#/volume] in Blood by Automated count 2024-03-06 14:34:10 F RECOLLECT - OUTDATED SPECIMEN Neutrophils [#/volume] in Blood by Automated count 2024-03-06 14:34:10 F RECOLLECT - OUTDATED SPECIMEN Neutrophils/100 leukocytes in Blood by Automated count 2024-03-06 14:34:10 F RECOLLECT - OUTDATED SPECIMEN Basophils/100 leukocytes in Blood by Automated count 2024-01-20 14:52:14 0.3 % F Monocytes/100 leukocytes in Blood by Automated count 2024-01-20 14:52:14 5.7 % F Lymphocytes/100 leukocytes in Blood by Automated count 2024-01-20 14:52:14 13.4 % F Eosinophils/100 leukocytes in Blood by Automated count 2024-01-20 14:52:14 5.3 % F Neutrophils/100 leukocytes in Blood by Automated count 2024-01-20 14:52:14 75.3 % F Monocytes [#/volume] in Blood by Automated count 2024-01-20 14:52:14 296 Cells/uL F 0.0-1100.0 Basophils [#/volume] in Blood by Automated count 2024-01-20 14:52:14 16 Cells/uL F 0.0-400.0 Eosinophils [#/volume] in Blood by Automated count 2024-01-20 14:52:14 275 Cells/uL F 0.0-700.0 Neutrophils [#/volume] in Blood by Automated count 2024-01-20 14:52:14 3908 Cells/uL F 2000.0-8800. 0 Leukocytes [#/volume] in Blood by Automated count 2024-01-20 14:52:14 5.2 x 10^3 cells/uL F 4.0-11.0 Lymphocytes [#/volume] in Blood by Automated count 2024-01-20 14:52:14 695 Cells/uL F 620.0-3660.0 Monocytes [#/volume] in Blood by Automated count 2023-12-23 13:49:19 376 Cells/uL F 0.0-1100.0 Neutrophils [#/volume] in Blood by Automated count 2023-12-23 13:49:19 4583 Cells/uL F 2000.0-8800. 0 Lymphocytes [#/volume] in Blood by Automated count 2023-12-23 13:49:19 710 Cells/uL F 620.0-3660.0 Eosinophils/100 leukocytes in Blood by Automated count 2023-12-23 13:49:18 6 % F Monocytes/100 leukocytes in Blood by Automated count 2023-12-23 13:49:18 6.2 % F Lymphocytes/100 leukocytes in Blood by Automated count 2023-12-23 13:49:18 11.7 % F Basophils/100 leukocytes in Blood by Automated count 2023-12-23 13:49:18 0.6 % F Neutrophils/100 leukocytes in Blood by Automated count 2023-12-23 13:49:18 75.5 % F Basophils [#/volume] in Blood by Automated count 2023-12-23 13:49:18 36 Cells/uL F 0.0-400.0 Eosinophils [#/volume] in Blood by Automated count 2023-12-23 13:49:18 364 Cells/uL F 0.0-700.0 Leukocytes [#/volume] in Blood by Automated count 2023-12-23 13:49:18 6.1 x 10^3 cells/uL F 4.0-11.0 Eosinophils/100 leukocytes in Blood by Automated count 2023-11-26 16:34:12 4.6 % F Lymphocytes/100 leukocytes in Blood by Automated count 2023-11-26 16:34:12 9.3 % F Basophils/100 leukocytes in Blood by Automated count 2023-11-26 16:34:12 0.7 % F Leukocytes [#/volume] in Blood by Automated count 2023-11-26 16:34:12 6.4 x 10^3 cells/uL F 4.0-11.0 Lymphocytes [#/volume] in Blood by Automated count 2023-11-26 16:34:12 598 Cell/uL F 620.0-3660.0 Neutrophils/100 leukocytes in Blood by Automated count 2023-11-26 16:34:11 80.1 % F Monocytes/100 leukocytes in Blood by Automated count 2023-11-26 16:34:11 5.3 % F Monocytes [#/volume] in Blood by Automated count 2023-11-26 16:34:11 341 Cell/uL F 0.0-1100.0 Basophils [#/volume] in Blood by Automated count 2023-11-26 16:34:11 45 Cell/uL F 0.0-400.0 Eosinophils [#/volume] in Blood by Automated count 2023-11-26 16:34:11 296 Cell/uL F 0.0-700.0 Neutrophils [#/volume] in Blood by Automated count 2023-11-26 16:34:11 5150 Cell/uL F 2000.0-8800. 0 Monocytes/100 leukocytes in Blood by Automated count 2023-10-21 22:31:38 6 % F Basophils/100 leukocytes in Blood by Automated count 2023-10-21 22:31:38 0.5 % F Lymphocytes/100 leukocytes in Blood by Automated count 2023-10-21 22:31:38 10.7 % F Eosinophils/100 leukocytes in Blood by Automated count 2023-10-21 22:31:38 3.9 % F Neutrophils/100 leukocytes in Blood by Automated count 2023-10-21 22:31:38 78.9 % F Monocytes [#/volume] in Blood by Automated count 2023-10-21 22:31:38 433 Cell/uL F 0.0-1100.0 Basophils [#/volume] in Blood by Automated count 2023-10-21 22:31:38 36 Cell/uL F 0.0-400.0 Eosinophils [#/volume] in Blood by Automated count 2023-10-21 22:31:38 281 Cell/uL F 0.0-700.0 Neutrophils [#/volume] in Blood by Automated count 2023-10-21 22:31:38 5689 Cell/uL F 2000.0-8800. 0 Leukocytes [#/volume] in Blood by Automated count 2023-10-21 22:31:38 7.2 x 10^3 cells/uL F 4.0-11.0 Lymphocytes [#/volume] in Blood by Automated count 2023-10-21 22:31:38 771 Cell/uL F 620.0-3660.0 Monocytes/100 leukocytes in Blood by Automated count 2023-09-28 23:38:38 5.2 % F Basophils/100 leukocytes in Blood by Automated count 2023-09-28 23:38:38 0.6 % F Eosinophils/100 leukocytes in Blood by Automated count 2023-09-28 23:38:38 3.7 % F Lymphocytes/100 leukocytes in Blood by Automated count 2023-09-28 23:38:38 12.6 % F Neutrophils/100 leukocytes in Blood by Automated count 2023-09-28 23:38:38 77.8 % F Basophils [#/volume] in Blood by Automated count 2023-09-28 23:38:38 40 Cell/uL F 0.0-400.0 Eosinophils [#/volume] in Blood by Automated count 2023-09-28 23:38:38 248 Cell/uL F 0.0-700.0 Monocytes [#/volume] in Blood by Automated count 2023-09-28 23:38:38 348 Cell/uL F 0.0-1100.0 Neutrophils [#/volume] in Blood by Automated count 2023-09-28 23:38:38 5213 Cell/uL F 2000.0-8800. 0 Leukocytes [#/volume] in Blood by Automated count 2023-09-28 23:38:38 6.7 x 10^3 cells/uL F 4.0-11.0 Lymphocytes [#/volume] in Blood by Automated count 2023-09-28 23:38:38 844 Cell/uL F 620.0-3660.0 Leukocytes [#/volume] in Blood by Automated count 2023-09-23 15:15:28 F Recollect - Shipping temp out of range Eosinophils [#/volume] in Blood by Automated count 2023-09-23 15:15:28 F Recollect - Shipping temp out of range Monocytes [#/volume] in Blood by Automated count 2023-09-23 15:15:28 F Recollect - Shipping temp out of range Lymphocytes [#/volume] in Blood by Automated count 2023-09-23 15:15:28 F Recollect - Shipping temp out of range Eosinophils/100 leukocytes in Blood by Automated count 2023-09-23 15:15:28 F Recollect - Shipping temp out of range Lymphocytes/100 leukocytes in Blood by Automated count 2023-09-23 15:15:28 F Recollect - Shipping temp out of range Basophils/100 leukocytes in Blood by Automated count 2023-09-23 15:15:28 F Recollect - Shipping temp out of range Neutrophils [#/volume] in Blood by Automated count 2023-09-23 15:15:28 F Recollect - Shipping temp out of range Basophils [#/volume] in Blood by Automated count 2023-09-23 15:15:28 F Recollect - Shipping temp out of range Neutrophils/100 leukocytes in Blood by Automated count 2023-09-23 15:15:28 F Recollect - Shipping temp out of range Monocytes/100 leukocytes in Blood by Automated count 2023-09-23 15:15:28 F Recollect - Shipping temp out of range Monocytes/100 leukocytes in Blood by Automated count 2023-08-19 02:35:29 4.4 % F Neutrophils/100 leukocytes in Blood by Automated count 2023-08-19 02:35:29 85.3 % F Eosinophils/100 leukocytes in Blood by Automated count 2023-08-19 02:35:29 2 % F Basophils/100 leukocytes in Blood by Automated count 2023-08-19 02:35:29 0.8 % F Monocytes [#/volume] in Blood by Automated count 2023-08-19 02:35:29 290 Cell/uL F 0.0-1100.0 Lymphocytes/100 leukocytes in Blood by Automated count 2023-08-19 02:35:29 7.4 % F Eosinophils [#/volume] in Blood by Automated count 2023-08-19 02:35:29 132 Cell/uL F 0.0-700.0 Basophils [#/volume] in Blood by Automated count 2023-08-19 02:35:29 53 Cell/uL F 0.0-400.0 Neutrophils [#/volume] in Blood by Automated count 2023-08-19 02:35:29 5613 Cell/uL F 2000.0-8800. 0 Leukocytes [#/volume] in Blood by Automated count 2023-08-19 02:35:29 6.6 x 10^3 cells/uL F 4.0-11.0 Lymphocytes [#/volume] in Blood by Automated count 2023-08-19 02:35:29 487 Cell/uL F 620.0-3660.0 Basophils/100 leukocytes in Blood by Automated count 2023-05-13 01:53:30 0.8 % F Eosinophils/100 leukocytes in Blood by Automated count 2023-05-13 01:53:30 3.5 % F Basophils [#/volume] in Blood by Automated count 2023-05-13 01:53:30 68 Cell/uL F 0.0-400.0 Monocytes/100 leukocytes in Blood by Automated count 2023-05-13 01:53:27 5.7 % F Lymphocytes/100 leukocytes in Blood by Automated count 2023-05-13 01:53:27 9.4 % F Neutrophils/100 leukocytes in Blood by Automated count 2023-05-13 01:53:27 80.7 % F Monocytes [#/volume] in Blood by Automated count 2023-05-13 01:53:27 485 Cell/uL F 0.0-1100.0 Eosinophils [#/volume] in Blood by Automated count 2023-05-13 01:53:27 298 Cell/uL F 0.0-700.0 Neutrophils [#/volume] in Blood by Automated count 2023-05-13 01:53:27 6868 Cell/uL F 2000.0-8800. 0 Leukocytes [#/volume] in Blood by Automated count 2023-05-13 01:53:27 8.5 x 10^3 cells/uL F 4.0-11.0 Lymphocytes [#/volume] in Blood by Automated count 2023-05-13 01:53:27 800 Cell/uL F 620.0-3660.0 Leukocytes [#/volume] in Blood by Automated count 2023-04-15 03:12:56 9.8 x 10^3 cells/uL F 4.0-11.0 Lymphocytes [#/volume] in Blood by Automated count 2023-04-15 03:12:56 755 Cell/uL F 620.0-3660.0 Basophils/100 leukocytes in Blood by Automated count 2023-04-15 03:12:56 0.6 % F Monocytes/100 leukocytes in Blood by Automated count 2023-04-15 03:12:56 4.1 % F Lymphocytes/100 leukocytes in Blood by Automated count 2023-04-15 03:12:56 7.7 % F Neutrophils/100 leukocytes in Blood by Automated count 2023-04-15 03:12:56 84.5 % F Eosinophils/100 leukocytes in Blood by Automated count 2023-04-15 03:12:56 3.2 % F Monocytes [#/volume] in Blood by Automated count 2023-04-15 03:12:56 402 Cell/uL F 0.0-1100.0 Eosinophils [#/volume] in Blood by Automated count 2023-04-15 03:12:56 314 Cell/uL F 0.0-700.0 Basophils [#/volume] in Blood by Automated count 2023-04-15 03:12:56 59 Cell/uL F 0.0-400.0 Neutrophils [#/volume] in Blood by Automated count 2023-04-15 03:12:56 8289 Cell/uL F 2000.0-8800. 0 Eosinophils/100 leukocytes in Blood by Automated count 2023-03-23 17:20:16 1.7 % F Basophils/100 leukocytes in Blood by Automated count 2023-03-23 17:20:16 0.3 % F Neutrophils/100 leukocytes in Blood by Automated count 2023-03-23 17:20:16 90.5 % F Lymphocytes/100 leukocytes in Blood by Automated count 2023-03-23 17:20:16 4 % F Monocytes/100 leukocytes in Blood by Automated count 2023-03-23 17:20:16 3.6 % F Monocytes [#/volume] in Blood by Automated count 2023-03-23 17:20:16 544 Cell/uL F 0.0-1100.0 Basophils [#/volume] in Blood by Automated count 2023-03-23 17:20:16 45 Cell/uL F 0.0-400.0 Eosinophils [#/volume] in Blood by Automated count 2023-03-23 17:20:16 257 Cell/uL F 0.0-700.0 Neutrophils [#/volume] in Blood by Automated count 2023-03-23 17:20:16 62574 Cell/uL F 2000.0-8800. 0 Leukocytes [#/volume] in Blood by Automated count 2023-03-23 17:20:16 15.1 x 10^3 cells/uL F 4.0-11.0 Lymphocytes [#/volume] in Blood by Automated count 2023-03-23 17:20:16 605 Cell/uL F 620.0-3660.0 Lymphocytes/100 leukocytes in Blood by Automated count 2023-02-09 22:33:34 10.4 % F Monocytes/100 leukocytes in Blood by Automated count 2023-02-09 22:33:34 5.4 % F Basophils/100 leukocytes in Blood by Automated count 2023-02-09 22:33:34 0.6 % F Eosinophils/100 leukocytes in Blood by Automated count 2023-02-09 22:33:34 3.4 % F Neutrophils/100 leukocytes in Blood by Automated count 2023-02-09 22:33:34 80.2 % F Monocytes [#/volume] in Blood by Automated count 2023-02-09 22:33:34 398 Cell/uL F 0.0-1100.0 Basophils [#/volume] in Blood by Automated count 2023-02-09 22:33:34 44 Cell/uL F 0.0-400.0 Eosinophils [#/volume] in Blood by Automated count 2023-02-09 22:33:34 251 Cell/uL F 0.0-700.0 Neutrophils [#/volume] in Blood by Automated count 2023-02-09 22:33:34 5911 Cell/uL F 2000.0-8800. 0 Leukocytes [#/volume] in Blood by Automated count 2023-02-09 22:33:34 7.4 x 10^3 cells/uL F 4.0-11.0 Lymphocytes [#/volume] in Blood by Automated count 2023-02-09 22:33:34 766 Cell/uL F 620.0-3660.0 Monocytes/100 leukocytes in Blood by Automated count 2022-12-09 14:20:36 4.6 % F Neutrophils/100 leukocytes in Blood by Automated count 2022-12-09 14:20:36 77.6 % F Basophils/100 leukocytes in Blood by Automated count 2022-12-09 14:20:36 0.3 % F Eosinophils/100 leukocytes in Blood by Automated count 2022-12-09 14:20:36 6.9 % F Lymphocytes/100 leukocytes in Blood by Automated count 2022-12-09 14:20:36 10.5 % F Monocytes [#/volume] in Blood by Automated count 2022-12-09 14:20:36 356 Cell/uL F 0.0-1100.0 Basophils [#/volume] in Blood by Automated count 2022-12-09 14:20:36 23 Cell/uL F 0.0-400.0 Eosinophils [#/volume] in Blood by Automated count 2022-12-09 14:20:36 535 Cell/uL F 0.0-700.0 Neutrophils [#/volume] in Blood by Automated count 2022-12-09 14:20:36 6014 Cell/uL F 2000.0-8800. 0 Leukocytes [#/volume] in Blood by Automated count 2022-12-09 14:20:36 7.8 x 10^3 cells/uL F 4.0-11.0 Lymphocytes [#/volume] in Blood by Automated count 2022-12-09 14:20:36 814 Cell/uL F 620.0-3660.0 Basophils/100 leukocytes in Blood by Automated count 2022-11-10 06:16:35 1 % F Eosinophils/100 leukocytes in Blood by Automated count 2022-11-10 06:16:35 3.5 % F Monocytes/100 leukocytes in Blood by Automated count 2022-11-10 06:16:35 5.5 % F Neutrophils/100 leukocytes in Blood by Automated count 2022-11-10 06:16:35 81.4 % F Lymphocytes/100 leukocytes in Blood by Automated count 2022-11-10 06:16:35 8.7 % F Monocytes [#/volume] in Blood by Automated count 2022-11-10 06:16:35 499 Cell/uL F 0.0-1100.0 Basophils [#/volume] in Blood by Automated count 2022-11-10 06:16:35 91 Cell/uL F 0.0-400.0 Eosinophils [#/volume] in Blood by Automated count 2022-11-10 06:16:35 317 Cell/uL F 0.0-700.0 Neutrophils [#/volume] in Blood by Automated count 2022-11-10 06:16:35 7383 Cell/uL F 2000.0-8800. 0 Leukocytes [#/volume] in Blood by Automated count 2022-11-10 06:16:35 9.1 x 10^3 cells/uL F 4.0-11.0 Lymphocytes [#/volume] in Blood by Automated count 2022-11-10 06:16:35 789 Cell/uL F 620.0-3660.0 Eosinophils/100 leukocytes in Blood by Automated count 2022-10-13 15:57:37 4.9 % F Lymphocytes/100 leukocytes in Blood by Automated count 2022-10-13 15:57:37 7.9 % F Monocytes/100 leukocytes in Blood by Automated count 2022-10-13 15:57:37 4.3 % F Neutrophils/100 leukocytes in Blood by Automated count 2022-10-13 15:57:37 82.3 % F Basophils/100 leukocytes in Blood by Automated count 2022-10-13 15:57:37 0.5 % F Monocytes [#/volume] in Blood by Automated count 2022-10-13 15:57:37 417 Cell/uL F 0.0-1100.0 Basophils [#/volume] in Blood by Automated count 2022-10-13 15:57:37 48 Cell/uL F 0.0-400.0 Eosinophils [#/volume] in Blood by Automated count 2022-10-13 15:57:37 475 Cell/uL F 0.0-700.0 Neutrophils [#/volume] in Blood by Automated count 2022-10-13 15:57:37 7975 Cell/uL F 2000.0-8800. 0 Leukocytes [#/volume] in Blood by Automated count 2022-10-13 15:57:37 9.7 x 10^3 cells/uL F 4.0-11.0 Lymphocytes [#/volume] in Blood by Automated count 2022-10-13 15:57:37 766 Cell/uL F 620.0-3660.0 Neutrophils/100 leukocytes in Blood by Automated count 2022-09-11 21:56:29 83.7 % F Monocytes/100 leukocytes in Blood by Automated count 2022-09-11 21:56:29 4.5 % F Lymphocytes/100 leukocytes in Blood by Automated count 2022-09-11 21:56:29 7.7 % F Basophils/100 leukocytes in Blood by Automated count 2022-09-11 21:56:29 1 % F Eosinophils/100 leukocytes in Blood by Automated count 2022-09-11 21:56:29 3 % F Monocytes [#/volume] in Blood by Automated count 2022-09-11 21:56:29 357 Cell/uL F 0.0-1100.0 Basophils [#/volume] in Blood by Automated count 2022-09-11 21:56:29 79 Cell/uL F 0.0-400.0 Eosinophils [#/volume] in Blood by Automated count 2022-09-11 21:56:29 238 Cell/uL F 0.0-700.0 Neutrophils [#/volume] in Blood by Automated count 2022-09-11 21:56:29 6637 Cell/uL F 2000.0-8800. 0 Leukocytes [#/volume] in Blood by Automated count 2022-09-11 21:56:29 7.9 x 10^3 cells/uL F 4.0-11.0 Lymphocytes [#/volume] in Blood by Automated count 2022-09-11 21:56:29 611 Cell/uL F 620.0-3660.0 Lymphocytes/100 leukocytes in Blood by Automated count 2022-07-13 20:35:08 10.6 % F Neutrophils/100 leukocytes in Blood by Automated count 2022-07-13 20:35:08 79.8 % F Monocytes/100 leukocytes in Blood by Automated count 2022-07-13 20:35:08 5.9 % F Basophils/100 leukocytes in Blood by Automated count 2022-07-13 20:35:08 0.5 % F Eosinophils/100 leukocytes in Blood by Automated count 2022-07-13 20:35:08 3.1 % F Monocytes [#/volume] in Blood by Automated count 2022-07-13 20:35:08 482.62 Cell/uL F 0.0-1100.0 Basophils [#/volume] in Blood by Automated count 2022-07-13 20:35:08 40.9 Cell/uL F 0.0-400.0 Eosinophils [#/volume] in Blood by Automated count 2022-07-13 20:35:08 253.58 Cell/uL F 0.0-700.0 Neutrophils [#/volume] in Blood by Automated count 2022-07-13 20:35:08 6527.64 Cell/uL F 2000.0-8800. 0 Leukocytes [#/volume] in Blood by Automated count 2022-07-13 20:35:08 8.2 x 10^3 cells/uL F 4.0-11.0 Lymphocytes [#/volume] in Blood by Automated count 2022-07-13 20:35:08 867.08 Cell/uL F 620.0-3660.0 MineralBone Disorder Description Draw Date Result/Unit Status Ref Range Result Comments CA CORRECTED 2024-10-20 06:27:10 8.7 mg/dL F CA/PHOS PRODUCT 2024-10-20 06:25:38 41.3 Calc F 21.0-53.0 CA*PO4 CORRCTD 2024-10-20 06:25:38 41.7 Calc F 21.0-53.0 Calcium [Mass/volume] in Serum or Plasma 2024-10-20 06:12:01 8.6 mg/dL F 8.7-10.4 Alkaline phosphatase [Enzymatic activity/volume] in Serum or Plasma 2024-10-20 02:23:16 93 U/L F 46.0-116.0 Phosphate [Mass/volume] in Serum or Plasma 2024-10-20 02:23:16 4.8 mg/dL F 2.4-5.1 Parathyrin.intact [Mass/volume] in Serum or Plasma 2024-10-19 20:25:28 562 pg/mL F 18.0-80.0 CA CORRECTED 2024-09-22 02:59:28 8.7 mg/dL F CA/PHOS PRODUCT 2024-09-22 02:57:30 37.8 Calc F 21.0-53.0 CA*PO4 CORRCTD 2024-09-22 02:57:30 38.2 Calc F 21.0-53.0 Calcium [Mass/volume] in Serum or Plasma 2024-09-22 02:48:38 8.6 mg/dL F 8.7-10.4 Alkaline phosphatase [Enzymatic activity/volume] in Serum or Plasma 2024-09-21 20:02:13 88 U/L F 46.0-116.0 Phosphate [Mass/volume] in Serum or Plasma 2024-09-21 20:02:13 4.4 mg/dL F 2.4-5.1 Parathyrin.intact [Mass/volume] in Serum or Plasma 2024-09-21 15:21:22 646 pg/mL F 18.0-80.0 25-Hydroxyvitamin D3+25-Hydroxyvitamin D2 [Mass/volume] in Serum or Plasma 2024-09-12 19:56:43 56.7 ng/mL F CA CORRECTED 2024-06-08 18:03:39 8.9 mg/dL F CA/PHOS PRODUCT 2024-06-08 18:01:40 43.5 Calc F 21.0-53.0 CA*PO4 CORRCTD 2024-06-08 18:01:40 44.7 Calc F 21.0-53.0 Phosphate [Mass/volume] in Serum or Plasma 2024-06-08 17:57:20 5 mg/dL F 2.4-5.1 Calcium [Mass/volume] in Serum or Plasma 2024-06-08 17:57:20 8.7 mg/dL F 8.7-10.4 Parathyrin.intact [Mass/volume] in Serum or Plasma 2024-06-08 16:02:16 F CANCELED - TEST CANCELED Alkaline phosphatase [Enzymatic activity/volume] in Serum or Plasma 2024-06-08 14:10:20 83 U/L F 46.0-116.0 CA CORRECTED 2024-04-19 08:13:55 9 mg/dL F CA/PHOS PRODUCT 2024-04-19 08:12:06 39.6 Calc F 21.0-53.0 CA*PO4 CORRCTD 2024-04-19 08:12:06 40.3 Calc F 21.0-53.0 Phosphate [Mass/volume] in Serum or Plasma 2024-04-19 07:06:58 4.5 mg/dL F 2.4-5.1 Calcium [Mass/volume] in Serum or Plasma 2024-04-19 07:06:58 8.8 mg/dL F 8.7-10.4 Alkaline phosphatase [Enzymatic activity/volume] in Serum or Plasma 2024-04-19 04:25:19 81 U/L F 46.0-116.0 Parathyrin.intact [Mass/volume] in Serum or Plasma 2024-04-18 15:26:17 558 pg/mL F 18.0-80.0 CA CORRECTED 2024-03-22 09:37:01 8.6 mg/dL F CA*PO4 CORRCTD 2024-03-22 09:34:57 37 Calc F 21.0-53.0 CA/PHOS PRODUCT 2024-03-22 09:34:57 37 Calc F 21.0-53.0 Phosphate [Mass/volume] in Serum or Plasma 2024-03-22 07:02:50 4.3 mg/dL F 2.4-5.1 Calcium [Mass/volume] in Serum or Plasma 2024-03-22 07:02:50 8.6 mg/dL F 8.7-10.4 Parathyrin.intact [Mass/volume] in Serum or Plasma 2024-03-21 19:12:16 766 pg/mL F 18.0-80.0 Alkaline phosphatase [Enzymatic activity/volume] in Serum or Plasma 2024-03-21 16:24:21 79 U/L F 46.0-116.0 CA CORRECTED 2024-03-06 20:08:52 8.4 mg/dL F CA*PO4 CORRCTD 2024-03-06 20:06:50 32.8 Calc F 21.0-53.0 CA/PHOS PRODUCT 2024-03-06 20:06:50 31.6 Calc F 21.0-53.0 Phosphate [Mass/volume] in Serum or Plasma 2024-03-06 18:14:35 3.9 mg/dL F 2.4-5.1 Calcium [Mass/volume] in Serum or Plasma 2024-03-06 18:14:35 8.1 mg/dL F 8.7-10.4 Alkaline phosphatase [Enzymatic activity/volume] in Serum or Plasma 2024-03-06 16:10:24 63 U/L F 46.0-116.0 Parathyrin.intact [Mass/volume] in Serum or Plasma 2024-03-06 16:09:12 F RECOLLECT - OUTDATED SPECIMEN CA CORRECTED 2024-01-21 05:45:36 8.8 mg/dL F CA/PHOS PRODUCT 2024-01-21 05:43:58 35.3 Calc F 21.0-53.0 CA*PO4 CORRCTD 2024-01-21 05:43:58 36.2 Calc F 21.0-53.0 Phosphate [Mass/volume] in Serum or Plasma 2024-01-21 05:30:05 4.1 mg/dL F 2.4-5.1 Calcium [Mass/volume] in Serum or Plasma 2024-01-21 05:29:44 8.6 mg/dL F 8.7-10.4 Alkaline phosphatase [Enzymatic activity/volume] in Serum or Plasma 2024-01-20 22:11:20 71 U/L F 46.0-116.0 Parathyrin.intact [Mass/volume] in Serum or Plasma 2024-01-20 15:45:31 474 pg/mL F 18.0-80.0 CA CORRECTED 2023-12-24 04:09:01 8.8 mg/dL F CA/PHOS PRODUCT 2023-12-24 04:07:56 45.8 Calc F 21.0-53.0 CA*PO4 CORRCTD 2023-12-24 04:07:56 45.8 Calc F 21.0-53.0 Calcium [Mass/volume] in Serum or Plasma 2023-12-24 03:59:59 8.8 mg/dL F 8.7-10.4 Phosphate [Mass/volume] in Serum or Plasma 2023-12-23 16:01:20 5.2 mg/dL F 2.4-5.1 Alkaline phosphatase [Enzymatic activity/volume] in Serum or Plasma 2023-12-23 16:01:20 73 U/L F 46.0-116.0 Parathyrin.intact [Mass/volume] in Serum or Plasma 2023-12-23 15:10:20 579 pg/mL F 18.0-80.0 CA CORRECTED 2023-11-26 09:36:14 8.9 mg/dL F CA*PO4 CORRCTD 2023-11-26 07:47:38 39.2 Calc F 21.0-53.0 CA/PHOS PRODUCT 2023-11-26 07:47:38 38.7 Calc F 21.0-53.0 Calcium [Mass/volume] in Serum or Plasma 2023-11-26 07:26:56 8.8 mg/dL F 8.7-10.4 Parathyrin.intact [Mass/volume] in Serum or Plasma 2023-11-26 03:13:31 556 pg/mL F 18.0-80.0 Phosphate [Mass/volume] in Serum or Plasma 2023-11-26 00:38:32 4.4 mg/dL F 2.4-5.1 Alkaline phosphatase [Enzymatic activity/volume] in Serum or Plasma 2023-11-26 00:38:32 76 U/L F 46.0-116.0 CA CORRECTED 2023-10-22 05:04:52 8.9 mg/dL F CA*PO4 CORRCTD 2023-10-22 04:52:58 24.9 Calc F 21.0-53.0 CA/PHOS PRODUCT 2023-10-22 04:52:58 24.4 Calc F 21.0-53.0 Calcium [Mass/volume] in Serum or Plasma 2023-10-22 04:44:53 8.7 mg/dL F 8.7-10.4 Parathyrin.intact [Mass/volume] in Serum or Plasma 2023-10-21 21:31:14 238 pg/mL F 18.0-80.0 Phosphate [Mass/volume] in Serum or Plasma 2023-10-21 20:59:19 2.8 mg/dL F 2.4-5.1 Alkaline phosphatase [Enzymatic activity/volume] in Serum or Plasma 2023-10-21 20:59:19 64 U/L F 46.0-116.0 CA CORRECTED 2023-09-28 18:31:02 8.9 mg/dL F CA/PHOS PRODUCT 2023-09-28 18:29:22 32.7 Calc F 21.0-53.0 CA*PO4 CORRCTD 2023-09-28 18:29:22 33.8 Calc F 21.0-53.0 Calcium [Mass/volume] in Serum or Plasma 2023-09-28 18:29:07 8.6 mg/dL F 8.7-10.4 Parathyrin.intact [Mass/volume] in Serum or Plasma 2023-09-28 14:58:32 316 pg/mL F 18.0-80.0 Phosphate [Mass/volume] in Serum or Plasma 2023-09-28 14:27:41 3.8 mg/dL F 2.4-5.1 Alkaline phosphatase [Enzymatic activity/volume] in Serum or Plasma 2023-09-28 14:27:41 66 U/L F 46.0-116.0 CA*PO4 CORRCTD 2023-09-23 15:16:02 F Recollect - Shipping temp out of range CA/PHOS PRODUCT 2023-09-23 15:16:02 F Recollect - Shipping temp out of range Parathyrin.intact [Mass/volume] in Serum or Plasma 2023-09-23 15:15:28 F Recollect - Shipping temp out of range Phosphate [Mass/volume] in Serum or Plasma 2023-09-23 15:14:32 F Recollect - Shipping temp out of range Alkaline phosphatase [Enzymatic activity/volume] in Serum or Plasma 2023-09-23 15:14:32 F Recollect - Shipping temp out of range Calcium [Mass/volume] in Serum or Plasma 2023-09-23 15:14:32 F Recollect - Shipping temp out of range CA CORRECTED 2023-08-18 08:01:33 8.5 mg/dL F CA/PHOS PRODUCT 2023-08-18 07:45:48 30.3 Calc F 21.0-53.0 CA*PO4 CORRCTD 2023-08-18 07:45:48 31.5 Calc F 21.0-53.0 Calcium [Mass/volume] in Serum or Plasma 2023-08-18 07:34:08 8.2 mg/dL F 8.7-10.4 Parathyrin.intact [Mass/volume] in Serum or Plasma 2023-08-18 06:43:55 306 pg/mL F 18.0-80.0 25-Hydroxyvitamin D3+25-Hydroxyvitamin D2 [Mass/volume] in Serum or Plasma 2023-08-18 04:24:17 40.2 ng/mL F Phosphate [Mass/volume] in Serum or Plasma 2023-08-18 03:16:42 3.7 mg/dL F 2.4-5.1 Alkaline phosphatase [Enzymatic activity/volume] in Serum or Plasma 2023-08-18 03:16:42 47 U/L F 46.0-116.0 CA CORRECTED 2023-05-13 08:54:52 9 mg/dL F CA/PHOS PRODUCT 2023-05-13 07:33:13 30.3 Calc F 21.0-53.0 CA*PO4 CORRCTD 2023-05-13 07:33:13 30.6 Calc F 21.0-53.0 Calcium [Mass/volume] in Serum or Plasma 2023-05-13 07:31:21 8.9 mg/dL F 8.7-10.4 Parathyrin.intact [Mass/volume] in Serum or Plasma 2023-05-13 06:51:13 298 pg/mL F 18.0-80.0 Magnesium [Mass/volume] in Serum or Plasma 2023-05-13 00:49:33 1.4 mg/dL F 1.3-2.7 Phosphate [Mass/volume] in Serum or Plasma 2023-05-13 00:49:33 3.4 mg/dL F 2.4-5.1 Alkaline phosphatase [Enzymatic activity/volume] in Serum or Plasma 2023-05-13 00:49:33 69 U/L F 46.0-116.0 CA CORRECTED 2023-04-15 09:26:26 8.7 mg/dL F CA*PO4 CORRCTD 2023-04-15 08:51:54 32.2 Calc F 21.0-53.0 CA/PHOS PRODUCT 2023-04-15 08:51:54 31.5 Calc F 21.0-53.0 Calcium [Mass/volume] in Serum or Plasma 2023-04-15 08:25:04 8.5 mg/dL F 8.7-10.4 Parathyrin.intact [Mass/volume] in Serum or Plasma 2023-04-15 08:16:42 257 pg/mL F 18.0-80.0 Alkaline phosphatase [Enzymatic activity/volume] in Serum or Plasma 2023-04-15 03:22:52 67 U/L F 46.0-116.0 Magnesium [Mass/volume] in Serum or Plasma 2023-04-15 03:22:52 1.4 mg/dL F 1.3-2.7 Phosphate [Mass/volume] in Serum or Plasma 2023-04-15 03:22:52 3.7 mg/dL F 2.4-5.1 Parathyrin.intact [Mass/volume] in Serum or Plasma 2023-03-24 08:11:01 202 pg/mL F 18.0-80.0 CA CORRECTED 2023-03-24 07:37:10 8.6 mg/dL F CA/PHOS PRODUCT 2023-03-24 07:34:52 22.1 Calc F 21.0-53.0 CA*PO4 CORRCTD 2023-03-24 07:34:52 23.2 Calc F 21.0-53.0 Calcium [Mass/volume] in Serum or Plasma 2023-03-24 07:30:45 8.2 mg/dL F 8.7-10.4 Magnesium [Mass/volume] in Serum or Plasma 2023-03-23 19:27:57 1.5 mg/dL F 1.3-2.7 Phosphate [Mass/volume] in Serum or Plasma 2023-03-23 19:27:57 2.7 mg/dL F 2.4-5.1 Alkaline phosphatase [Enzymatic activity/volume] in Serum or Plasma 2023-03-23 19:27:57 68 U/L F 46.0-116.0 CA CORRECTED 2023-02-10 02:58:11 8.4 mg/dL F CA*PO4 CORRCTD 2023-02-10 02:50:21 32.8 Calc F 21.0-53.0 CA/PHOS PRODUCT 2023-02-10 02:50:21 32 Calc F 21.0-53.0 Calcium [Mass/volume] in Serum or Plasma 2023-02-10 02:48:47 8.2 mg/dL F 8.7-10.4 Parathyrin.intact [Mass/volume] in Serum or Plasma 2023-02-10 02:37:40 412 pg/mL F 18.0-80.0 25-Hydroxyvitamin D3+25-Hydroxyvitamin D2 [Mass/volume] in Serum or Plasma 2023-02-10 00:29:17 54 ng/mL F Magnesium [Mass/volume] in Serum or Plasma 2023-02-10 00:00:03 1.5 mg/dL F 1.3-2.7 Phosphate [Mass/volume] in Serum or Plasma 2023-02-10 00:00:03 3.9 mg/dL F 2.4-5.1 Alkaline phosphatase [Enzymatic activity/volume] in Serum or Plasma 2023-02-10 00:00:03 67 U/L F 46.0-116.0 Parathyrin.intact [Mass/volume] in Serum or Plasma 2022-12-10 05:00:54 244 pg/mL F 18.0-80.0 CA CORRECTED 2022-12-09 17:17:11 9 mg/dL F CA*PO4 CORRCTD 2022-12-09 17:14:26 30.6 Calc F 21.0-53.0 CA/PHOS PRODUCT 2022-12-09 17:14:26 29.6 Calc F 21.0-53.0 Calcium [Mass/volume] in Serum or Plasma 2022-12-09 17:12:37 8.7 mg/dL F 8.7-10.4 Magnesium [Mass/volume] in Serum or Plasma 2022-12-09 15:38:35 1.6 mg/dL F 1.3-2.7 Phosphate [Mass/volume] in Serum or Plasma 2022-12-09 15:38:35 3.4 mg/dL F 2.4-5.1 Alkaline phosphatase [Enzymatic activity/volume] in Serum or Plasma 2022-12-09 15:38:35 77 U/L F 46.0-116.0 CA CORRECTED 2022-11-10 08:31:37 8.8 mg/dL F CA/PHOS PRODUCT 2022-11-10 07:35:42 23.8 Calc F 21.0-53.0 CA*PO4 CORRCTD 2022-11-10 07:35:42 24.6 Calc F 21.0-53.0 Calcium [Mass/volume] in Serum or Plasma 2022-11-10 07:22:45 8.5 mg/dL F 8.7-10.4 Parathyrin.intact [Mass/volume] in Serum or Plasma 2022-11-10 06:52:34 261 pg/mL F 18.0-80.0 Magnesium [Mass/volume] in Serum or Plasma 2022-11-10 00:12:44 1.4 mg/dL F 1.3-2.7 Phosphate [Mass/volume] in Serum or Plasma 2022-11-10 00:12:44 2.8 mg/dL F 2.4-5.1 Alkaline phosphatase [Enzymatic activity/volume] in Serum or Plasma 2022-11-10 00:12:44 76 U/L F 46.0-116.0 CA CORRECTED 2022-10-14 06:24:29 8.8 mg/dL F CA/PHOS PRODUCT 2022-10-14 05:47:16 29.8 Calc F 21.0-53.0 CA*PO4 CORRCTD 2022-10-14 05:47:16 30.8 Calc F 21.0-53.0 Calcium [Mass/volume] in Serum or Plasma 2022-10-14 05:42:19 8.5 mg/dL F 8.7-10.4 Parathyrin.intact [Mass/volume] in Serum or Plasma 2022-10-14 02:43:42 255 pg/mL F 18.0-80.0 Magnesium [Mass/volume] in Serum or Plasma 2022-10-13 17:05:29 1.4 mg/dL F 1.3-2.7 Phosphate [Mass/volume] in Serum or Plasma 2022-10-13 17:05:29 3.5 mg/dL F 2.4-5.1 Alkaline phosphatase [Enzymatic activity/volume] in Serum or Plasma 2022-10-13 17:05:29 81 U/L F 46.0-116.0 CA CORRECTED 2022-09-12 02:19:14 8.7 mg/dL F CA/PHOS PRODUCT 2022-09-12 02:06:44 28.2 Calc F 21.0-53.0 CA*PO4 CORRCTD 2022-09-12 02:06:44 29.6 Calc F 21.0-53.0 Calcium [Mass/volume] in Serum or Plasma 2022-09-12 02:01:42 8.3 mg/dL F 8.7-10.4 Magnesium [Mass/volume] in Serum or Plasma 2022-09-11 23:42:26 1.3 mg/dL F 1.3-2.7 Phosphate [Mass/volume] in Serum or Plasma 2022-09-11 23:42:26 3.4 mg/dL F 2.4-5.1 Alkaline phosphatase [Enzymatic activity/volume] in Serum or Plasma 2022-09-11 23:42:26 72 U/L F 46.0-116.0 Parathyrin.intact [Mass/volume] in Serum or Plasma 2022-09-11 18:46:27 273 pg/mL F 18.0-80.0 Parathyrin.intact [Mass/volume] in Serum or Plasma 2022-07-14 04:53:13 234 pg/mL F 18.0-80.0 CA/PHOS PRODUCT 2022-07-13 18:48:59 F Recollect - Unsp un specimen CA*PO4 CORRCTD 2022-07-13 18:48:59 F Recollect - Unsp un specimen Alkaline phosphatase [Enzymatic activity/volume] in Serum or Plasma 2022-07-13 18:47:47 F Recollect - Unsp un specimen Magnesium [Mass/volume] in Serum or Plasma 2022-07-13 18:47:47 F Recollect - Unsp un specimen Phosphate [Mass/volume] in Serum or Plasma 2022-07-13 18:47:47 F Recollect - Unsp un specimen Calcium [Mass/volume] in Serum or Plasma 2022-07-13 18:47:47 F Recollect - Unsp un specimen CA CORRECTED F CA CORRECTED F Nutrition Description Draw Date Result/Unit Status Ref Range Result Comments Potassium [Moles/volume] in Serum or Plasma 2024-10-20 06:12:01 4.4 mEq/L F 3.5-5.1 A/G RATIO 2024-10-20 02:24:02 1.6 Calc F 1.0-2.5 GLOBULIN 2024-10-20 02:24:02 2.4 g/dL F 0.9-5.0 Albumin [Mass/volume] in Serum or Plasma by Bromocresol green (BCG) dye binding method 2024-10-20 02:23:16 3.9 g/dL F 3.2-4.8 Bicarbonate [Moles/volume] in Serum or Plasma 2024-10-20 02:23:16 26 mEq/L F 20.0-31.0 Glucose [Mass/volume] in Serum or Plasma 2024-10-20 02:23:16 118 mg/dL F 74.0-106.0 Lactate dehydrogenase [Enzymatic activity/volume] in Serum or Plasma 2024-10-20 02:23:16 234 U/L F 120.0-246.0 Protein [Mass/volume] in Serum or Plasma 2024-10-20 02:23:16 6.3 g/dL F 5.7-8.2 Potassium [Moles/volume] in Serum or Plasma 2024-09-22 02:48:38 4.2 mEq/L F 3.5-5.1 A/G RATIO 2024-09-21 20:03:18 1.5 Calc F 1.0-2.5 GLOBULIN 2024-09-21 20:03:18 2.6 g/dL F 0.9-5.0 Albumin [Mass/volume] in Serum or Plasma by Bromocresol green (BCG) dye binding method 2024-09-21 20:02:13 3.9 g/dL F 3.2-4.8 Bicarbonate [Moles/volume] in Serum or Plasma 2024-09-21 20:02:13 26 mEq/L F 20.0-31.0 Glucose [Mass/volume] in Serum or Plasma 2024-09-21 20:02:13 119 mg/dL F 74.0-106.0 Lactate dehydrogenase [Enzymatic activity/volume] in Serum or Plasma 2024-09-21 20:02:13 224 U/L F 120.0-246.0 Protein [Mass/volume] in Serum or Plasma 2024-09-21 20:02:13 6.5 g/dL F 5.7-8.2 Cobalamin (Vitamin B12) [Mass/volume] in Serum or Plasma 2024-09-12 19:56:43 386 pg/mL F 211.0-911.0 LDL-CHOLESTEROL 2024-09-12 15:28:06 47 mg/dL F 0.0-99.0 CHOL/HDL RATIO 2024-09-12 15:28:06 3.1 Calc F 3.3-5.0 VLDL-CHOL(CALC) 2024-09-12 15:28:06 15 mg/dL F 0.0-29.0 Protein [Mass/volume] in Serum or Plasma 2024-09-12 15:27:17 74 mg/dL F 0.0-149.0 Cholesterol [Mass/volume] in Serum or Plasma 2024-09-12 15:27:17 91 mg/dL F 0.0-199.0 Cholesterol in HDL [Mass/volume] in Serum or Plasma 2024-09-12 15:27:17 29 mg/dL F 40.0-60.0 Potassium [Moles/volume] in Serum or Plasma 2024-06-08 17:57:20 4.6 mEq/L F 3.5-5.5 GLOBULIN 2024-06-08 14:11:02 2.4 g/dL F 0.9-5.0 A/G RATIO 2024-06-08 14:11:02 1.5 Calc F 1.0-2.5 Lactate dehydrogenase [Enzymatic activity/volume] in Serum or Plasma 2024-06-08 14:10:20 203 U/L F 120.0-246.0 Albumin [Mass/volume] in Serum or Plasma by Bromocresol green (BCG) dye binding method 2024-06-08 14:10:20 3.7 g/dL F 3.4-4.8 Bicarbonate [Moles/volume] in Serum or Plasma 2024-06-08 14:10:18 26 mEq/L F 20.0-31.0 Protein [Mass/volume] in Serum or Plasma 2024-06-08 14:10:18 6.1 g/dL F 5.7-8.2 Glucose [Mass/volume] in Serum or Plasma 2024-06-08 14:10:18 134 mg/dL F 70.0-99.0 Potassium [Moles/volume] in Serum or Plasma 2024-04-19 07:06:58 5 mEq/L F 3.5-5.5 GLOBULIN 2024-04-19 04:26:21 2.4 g/dL F 0.9-5.0 A/G RATIO 2024-04-19 04:26:21 1.6 Calc F 1.0-2.5 Lactate dehydrogenase [Enzymatic activity/volume] in Serum or Plasma 2024-04-19 04:25:19 222 U/L F 120.0-246.0 Bicarbonate [Moles/volume] in Serum or Plasma 2024-04-19 04:25:19 28 mEq/L F 20.0-31.0 Albumin [Mass/volume] in Serum or Plasma by Bromocresol green (BCG) dye binding method 2024-04-19 04:25:19 3.8 g/dL F 3.4-4.8 Protein [Mass/volume] in Serum or Plasma 2024-04-19 04:25:19 6.2 g/dL F 5.7-8.2 Potassium [Moles/volume] in Serum or Plasma 2024-03-22 07:02:50 4.1 mEq/L F 3.5-5.5 GLOBULIN 2024-03-21 16:25:26 2.5 g/dL F 0.9-5.0 A/G RATIO 2024-03-21 16:25:26 1.6 Calc F 1.0-2.5 Lactate dehydrogenase [Enzymatic activity/volume] in Serum or Plasma 2024-03-21 16:24:21 214 U/L F 120.0-246.0 Bicarbonate [Moles/volume] in Serum or Plasma 2024-03-21 16:24:21 27 mEq/L F 20.0-31.0 Albumin [Mass/volume] in Serum or Plasma by Bromocresol green (BCG) dye binding method 2024-03-21 16:24:21 4 g/dL F 3.4-4.8 Protein [Mass/volume] in Serum or Plasma 2024-03-21 16:24:21 6.5 g/dL F 5.7-8.2 Potassium [Moles/volume] in Serum or Plasma 2024-03-06 18:14:35 3.6 mEq/L F 3.5-5.5 GLOBULIN 2024-03-06 16:11:23 2.1 g/dL F 0.9-5.0 A/G RATIO 2024-03-06 16:11:23 1.7 Calc F 1.0-2.5 Lactate dehydrogenase [Enzymatic activity/volume] in Serum or Plasma 2024-03-06 16:10:24 254 U/L F 120.0-246.0 Albumin [Mass/volume] in Serum or Plasma by Bromocresol green (BCG) dye binding method 2024-03-06 16:10:24 3.6 g/dL F 3.4-4.8 Bicarbonate [Moles/volume] in Serum or Plasma 2024-03-06 16:10:24 24 mEq/L F 20.0-31.0 Protein [Mass/volume] in Serum or Plasma 2024-03-06 16:10:24 5.7 g/dL F 5.7-8.2 Potassium [Moles/volume] in Serum or Plasma 2024-01-21 05:29:44 4.5 mEq/L F 3.5-5.5 GLOBULIN 2024-01-20 22:12:38 2.3 g/dL F 0.9-5.0 A/G RATIO 2024-01-20 22:12:38 1.6 Calc F 1.0-2.5 Bicarbonate [Moles/volume] in Serum or Plasma 2024-01-20 22:11:22 31 mEq/L F 20.0-31.0 Protein [Mass/volume] in Serum or Plasma 2024-01-20 22:11:22 6 g/dL F 5.7-8.2 Lactate dehydrogenase [Enzymatic activity/volume] in Serum or Plasma 2024-01-20 22:11:20 200 U/L F 120.0-246.0 Albumin [Mass/volume] in Serum or Plasma by Bromocresol green (BCG) dye binding method 2024-01-20 22:11:20 3.7 g/dL F 3.4-4.8 Potassium [Moles/volume] in Serum or Plasma 2023-12-24 03:59:59 4.2 mEq/L F 3.5-5.5 GLOBULIN 2023-12-23 16:02:25 2.4 g/dL F 0.9-5.0 A/G RATIO 2023-12-23 16:02:25 1.7 Calc F 1.0-2.5 Lactate dehydrogenase [Enzymatic activity/volume] in Serum or Plasma 2023-12-23 16:01:20 215 U/L F 120.0-246.0 Bicarbonate [Moles/volume] in Serum or Plasma 2023-12-23 16:01:20 27 mEq/L F 20.0-31.0 Albumin [Mass/volume] in Serum or Plasma by Bromocresol green (BCG) dye binding method 2023-12-23 16:01:20 4 g/dL F 3.4-4.8 Protein [Mass/volume] in Serum or Plasma 2023-12-23 16:01:20 6.4 g/dL F 5.7-8.2 Potassium [Moles/volume] in Serum or Plasma 2023-11-26 07:26:56 4 mEq/L F 3.5-5.5 GLOBULIN 2023-11-26 00:53:11 2.7 g/dL F 0.9-5.0 A/G RATIO 2023-11-26 00:53:11 1.4 Calc F 1.0-2.5 Lactate dehydrogenase [Enzymatic activity/volume] in Serum or Plasma 2023-11-26 00:38:32 205 U/L F 120.0-246.0 Bicarbonate [Moles/volume] in Serum or Plasma 2023-11-26 00:38:32 28 mEq/L F 20.0-31.0 Albumin [Mass/volume] in Serum or Plasma by Bromocresol green (BCG) dye binding method 2023-11-26 00:38:32 3.9 g/dL F 3.4-4.8 Protein [Mass/volume] in Serum or Plasma 2023-11-26 00:38:32 6.6 g/dL F 5.7-8.2 Potassium [Moles/volume] in Serum or Plasma 2023-10-22 04:44:53 3.9 mEq/L F 3.5-5.5 GLOBULIN 2023-10-21 20:59:27 2.4 g/dL F 0.9-5.0 A/G RATIO 2023-10-21 20:59:27 1.5 Calc F 1.0-2.5 Lactate dehydrogenase [Enzymatic activity/volume] in Serum or Plasma 2023-10-21 20:59:19 246 U/L F 120.0-246.0 Bicarbonate [Moles/volume] in Serum or Plasma 2023-10-21 20:59:19 26 mEq/L F 20.0-31.0 Albumin [Mass/volume] in Serum or Plasma by Bromocresol green (BCG) dye binding method 2023-10-21 20:59:19 3.7 g/dL F 3.4-4.8 Protein [Mass/volume] in Serum or Plasma 2023-10-21 20:59:19 6.1 g/dL F 5.7-8.2 Potassium [Moles/volume] in Serum or Plasma 2023-09-28 18:29:07 5.1 mEq/L F 3.5-5.5 GLOBULIN 2023-09-28 14:27:56 2.3 g/dL F 0.9-5.0 A/G RATIO 2023-09-28 14:27:56 1.6 Calc F 1.0-2.5 Lactate dehydrogenase [Enzymatic activity/volume] in Serum or Plasma 2023-09-28 14:27:41 230 U/L F 120.0-246.0 Bicarbonate [Moles/volume] in Serum or Plasma 2023-09-28 14:27:41 26 mEq/L F 20.0-31.0 Albumin [Mass/volume] in Serum or Plasma by Bromocresol green (BCG) dye binding method 2023-09-28 14:27:41 3.6 g/dL F 3.4-4.8 Protein [Mass/volume] in Serum or Plasma 2023-09-28 14:27:41 5.9 g/dL F 5.7-8.2 GLOBULIN 2023-09-23 15:16:02 F Recollect - Shipping temp out of range A/G RATIO 2023-09-23 15:16:02 F Recollect - Shipping temp out of range Protein [Mass/volume] in Serum or Plasma 2023-09-23 15:14:32 F Recollect - Shipping temp out of range Albumin [Mass/volume] in Serum or Plasma by Bromocresol green (BCG) dye binding method 2023-09-23 15:14:32 F Recollect - Shipping temp out of range Potassium [Moles/volume] in Serum or Plasma 2023-09-23 15:14:32 F Recollect - Shipping temp out of range Lactate dehydrogenase [Enzymatic activity/volume] in Serum or Plasma 2023-09-23 15:14:32 F Recollect - Shipping temp out of range Bicarbonate [Moles/volume] in Serum or Plasma 2023-09-23 15:14:32 F Recollect - Shipping temp out of range Potassium [Moles/volume] in Serum or Plasma 2023-08-18 07:34:08 3.8 mEq/L F 3.5-5.5 Cobalamin (Vitamin B12) [Mass/volume] in Serum or Plasma 2023-08-18 04:24:15 400 pg/mL F 211.0-911.0 VLDL-CHOL(CALC) 2023-08-18 03:17:22 12 mg/dL F 0.0-29.0 GLOBULIN 2023-08-18 03:17:22 2.2 g/dL F 0.9-5.0 A/G RATIO 2023-08-18 03:17:22 1.6 Calc F 1.0-2.5 LDL-CHOLESTEROL 2023-08-18 03:17:22 54 mg/dL F 0.0-99.0 CHOL/HDL RATIO 2023-08-18 03:17:22 3.4 Calc F 3.3-5.0 Protein [Mass/volume] in Serum or Plasma 2023-08-18 03:16:42 60 mg/dL F 0.0-149.0 Cholesterol [Mass/volume] in Serum or Plasma 2023-08-18 03:16:42 93 mg/dL F 0.0-199.0 Lactate dehydrogenase [Enzymatic activity/volume] in Serum or Plasma 2023-08-18 03:16:42 203 U/L F 120.0-246.0 Bicarbonate [Moles/volume] in Serum or Plasma 2023-08-18 03:16:42 29 mEq/L F 20.0-31.0 Albumin [Mass/volume] in Serum or Plasma by Bromocresol green (BCG) dye binding method 2023-08-18 03:16:42 3.6 g/dL F 3.4-4.8 Cholesterol in HDL [Mass/volume] in Serum or Plasma 2023-08-18 03:16:42 27 mg/dL F 40.0-60.0 Protein [Mass/volume] in Serum or Plasma 2023-08-18 03:16:42 5.8 g/dL F 5.7-8.2 Potassium [Moles/volume] in Serum or Plasma 2023-05-13 07:31:23 3.8 mEq/L F 3.5-5.5 GLOBULIN 2023-05-13 00:49:51 2.6 g/dL F 0.9-5.0 A/G RATIO 2023-05-13 00:49:51 1.5 Calc F 1.0-2.5 Lactate dehydrogenase [Enzymatic activity/volume] in Serum or Plasma 2023-05-13 00:49:33 236 U/L F 120.0-246.0 Bicarbonate [Moles/volume] in Serum or Plasma 2023-05-13 00:49:33 29 mEq/L F 20.0-31.0 Albumin [Mass/volume] in Serum or Plasma by Bromocresol green (BCG) dye binding method 2023-05-13 00:49:33 3.9 g/dL F 3.4-4.8 Protein [Mass/volume] in Serum or Plasma 2023-05-13 00:49:33 6.5 g/dL F 5.7-8.2 Glucose [Mass/volume] in Serum or Plasma 2023-05-13 00:49:33 220 mg/dL F 70.0-99.0 Potassium [Moles/volume] in Serum or Plasma 2023-04-15 08:25:09 4.4 mEq/L F 3.5-5.5 GLOBULIN 2023-04-15 03:23:05 2.8 g/dL F 0.9-5.0 A/G RATIO 2023-04-15 03:23:05 1.3 Calc F 1.0-2.5 Protein [Mass/volume] in Serum or Plasma 2023-04-15 03:22:52 6.5 g/dL F 5.7-8.2 Glucose [Mass/volume] in Serum or Plasma 2023-04-15 03:22:52 222 mg/dL F 70.0-99.0 Lactate dehydrogenase [Enzymatic activity/volume] in Serum or Plasma 2023-04-15 03:22:52 228 U/L F 120.0-246.0 Bicarbonate [Moles/volume] in Serum or Plasma 2023-04-15 03:22:52 27 mEq/L F 20.0-31.0 Albumin [Mass/volume] in Serum or Plasma by Bromocresol green (BCG) dye binding method 2023-04-15 03:22:52 3.7 g/dL F 3.4-4.8 Potassium [Moles/volume] in Serum or Plasma 2023-03-24 07:30:45 4.5 mEq/L F 3.5-5.5 A/G RATIO 2023-03-23 19:28:04 1.3 Calc F 1.0-2.5 GLOBULIN 2023-03-23 19:28:04 2.8 g/dL F 0.9-5.0 Lactate dehydrogenase [Enzymatic activity/volume] in Serum or Plasma 2023-03-23 19:27:57 231 U/L F 120.0-246.0 Bicarbonate [Moles/volume] in Serum or Plasma 2023-03-23 19:27:57 31 mEq/L F 20.0-31.0 Albumin [Mass/volume] in Serum or Plasma by Bromocresol green (BCG) dye binding method 2023-03-23 19:27:57 3.5 g/dL F 3.4-4.8 Protein [Mass/volume] in Serum or Plasma 2023-03-23 19:27:57 6.3 g/dL F 5.7-8.2 Glucose [Mass/volume] in Serum or Plasma 2023-03-23 19:27:57 301 mg/dL F 70.0-99.0 Potassium [Moles/volume] in Serum or Plasma 2023-02-10 02:48:46 4.3 mEq/L F 3.5-5.5 Cobalamin (Vitamin B12) [Mass/volume] in Serum or Plasma 2023-02-10 00:29:19 467 pg/mL F 211.0-911.0 Folate [Mass/volume] in Serum or Plasma 2023-02-10 00:29:19 11.4 ng/mL F 5.5-16.0 VLDL-CHOL(CALC) 2023-02-10 00:00:46 20 mg/dL F 0.0-29.0 LDL-CHOLESTEROL 2023-02-10 00:00:46 59 mg/dL F 0.0-99.0 GLOBULIN 2023-02-10 00:00:46 2.4 g/dL F 0.9-5.0 A/G RATIO 2023-02-10 00:00:46 1.5 Calc F 1.0-2.5 CHOL/HDL RATIO 2023-02-10 00:00:46 3.5 Calc F 3.3-5.0 Protein [Mass/volume] in Serum or Plasma 2023-02-10 00:00:03 102 mg/dL F 0.0-149.0 Cholesterol [Mass/volume] in Serum or Plasma 2023-02-10 00:00:03 111 mg/dL F 0.0-199.0 Lactate dehydrogenase [Enzymatic activity/volume] in Serum or Plasma 2023-02-10 00:00:03 235 U/L F 120.0-246.0 Bicarbonate [Moles/volume] in Serum or Plasma 2023-02-10 00:00:03 28 mEq/L F 20.0-31.0 Albumin [Mass/volume] in Serum or Plasma by Bromocresol green (BCG) dye binding method 2023-02-10 00:00:03 3.7 g/dL F 3.4-4.8 Cholesterol in HDL [Mass/volume] in Serum or Plasma 2023-02-10 00:00:03 32 mg/dL F 40.0-60.0 Protein [Mass/volume] in Serum or Plasma 2023-02-10 00:00:03 6.1 g/dL F 5.7-8.2 Glucose [Mass/volume] in Serum or Plasma 2023-02-10 00:00:03 261 mg/dL F 70.0-99.0 GLOBULIN 2022-12-09 15:39:34 2.3 g/dL F 0.9-5.0 A/G RATIO 2022-12-09 15:39:34 1.6 Calc F 1.0-2.5 Lactate dehydrogenase [Enzymatic activity/volume] in Serum or Plasma 2022-12-09 15:38:35 252 U/L F 120.0-246.0 Bicarbonate [Moles/volume] in Serum or Plasma 2022-12-09 15:38:35 30 mEq/L F 20.0-31.0 Albumin [Mass/volume] in Serum or Plasma by Bromocresol green (BCG) dye binding method 2022-12-09 15:38:35 3.6 g/dL F 3.4-4.8 Potassium [Moles/volume] in Serum or Plasma 2022-12-09 15:38:35 4.7 mEq/L F 3.5-5.5 Protein [Mass/volume] in Serum or Plasma 2022-12-09 15:38:35 5.9 g/dL F 5.7-8.2 Glucose [Mass/volume] in Serum or Plasma 2022-12-09 15:38:35 160 mg/dL F 70.0-99.0 GLOBULIN 2022-11-10 00:12:57 2.4 g/dL F 0.9-5.0 A/G RATIO 2022-11-10 00:12:57 1.5 Calc F 1.0-2.5 Lactate dehydrogenase [Enzymatic activity/volume] in Serum or Plasma 2022-11-10 00:12:44 244 U/L F 120.0-246.0 Bicarbonate [Moles/volume] in Serum or Plasma 2022-11-10 00:12:44 27 mEq/L F 20.0-31.0 Potassium [Moles/volume] in Serum or Plasma 2022-11-10 00:12:44 3.9 mEq/L F 3.5-5.5 Albumin [Mass/volume] in Serum or Plasma by Bromocresol green (BCG) dye binding method 2022-11-10 00:12:44 3.6 g/dL F 3.4-4.8 Protein [Mass/volume] in Serum or Plasma 2022-11-10 00:12:44 6 g/dL F 5.7-8.2 Glucose [Mass/volume] in Serum or Plasma 2022-11-10 00:12:44 201 mg/dL F 70.0-99.0 GLOBULIN 2022-10-13 17:05:35 2.4 g/dL F 0.9-5.0 A/G RATIO 2022-10-13 17:05:35 1.5 Calc F 1.0-2.5 Lactate dehydrogenase [Enzymatic activity/volume] in Serum or Plasma 2022-10-13 17:05:29 255 U/L F 120.0-246.0 Bicarbonate [Moles/volume] in Serum or Plasma 2022-10-13 17:05:29 29 mEq/L F 20.0-31.0 Albumin [Mass/volume] in Serum or Plasma by Bromocresol green (BCG) dye binding method 2022-10-13 17:05:29 3.6 g/dL F 3.4-4.8 Potassium [Moles/volume] in Serum or Plasma 2022-10-13 17:05:29 4.3 mEq/L F 3.5-5.5 Protein [Mass/volume] in Serum or Plasma 2022-10-13 17:05:29 6 g/dL F 5.7-8.2 Glucose [Mass/volume] in Serum or Plasma 2022-10-13 17:05:29 236 mg/dL F 70.0-99.0 GLOBULIN 2022-09-11 23:43:30 2.5 g/dL F 0.9-5.0 A/G RATIO 2022-09-11 23:43:30 1.4 Calc F 1.0-2.5 Lactate dehydrogenase [Enzymatic activity/volume] in Serum or Plasma 2022-09-11 23:42:26 290 U/L F 120.0-246.0 Bicarbonate [Moles/volume] in Serum or Plasma 2022-09-11 23:42:26 27 mEq/L F 20.0-31.0 Albumin [Mass/volume] in Serum or Plasma by Bromocresol green (BCG) dye binding method 2022-09-11 23:42:26 3.5 g/dL F 3.4-4.8 Potassium [Moles/volume] in Serum or Plasma 2022-09-11 23:42:26 4.3 mEq/L F 3.5-5.5 Protein [Mass/volume] in Serum or Plasma 2022-09-11 23:42:26 6 g/dL F 5.7-8.2 Glucose [Mass/volume] in Serum or Plasma 2022-09-11 23:42:26 204 mg/dL F 70.0-99.0 GLOBULIN 2022-07-13 18:48:59 F Recollect - Unsp un specimen A/G RATIO 2022-07-13 18:48:59 F Recollect - Unsp un specimen Lactate dehydrogenase [Enzymatic activity/volume] in Serum or Plasma 2022-07-13 18:47:47 F Recollect - Unsp un specimen Protein [Mass/volume] in Serum or Plasma 2022-07-13 18:47:47 F Recollect - Unsp un specimen Bicarbonate [Moles/volume] in Serum or Plasma 2022-07-13 18:47:47 F Recollect - Unsp un specimen Potassium [Moles/volume] in Serum or Plasma 2022-07-13 18:47:47 F Recollect - Unsp un specimen Albumin [Mass/volume] in Serum or Plasma by Bromocresol green (BCG) dye binding method 2022-07-13 18:47:47 F Recollect - Unsp un specimen Glucose [Mass/volume] in Serum or Plasma 2022-07-13 18:47:47 F Recollect - Unsp un specimen Encounters No encounter information to report Immunizations Ordered Immunization Name Filled Immunization Name Date Status Comments Refusal Reason Influenza, high-dose, quadrivalent, PF 2024-11-20 10:56:24 Pneumococcal conjugate PCV20, polysaccharide [id number] conjugate, adjuvant, PF 2024-04-25 05:00:00 TST-PPD intradermal 2024-03-29 13:00:00 Influenza, high-dose, quadrivalent, PF 2023-11-10 11:47:23 TST-PPD intradermal 2022-12-08 15:15:00 Hep B, adult 2022-08-12 15:30:00 Plan of Treatment Planned Activity Provider Planned Date Details Commen ts Diagnostic Test Pending [facility] CELESTINO 2024-09-23 05:00:00 Hemoglobin [Mass/volume] in Blood [code = 718-7] Diagnostic Test Pending [facility] 2023-09-08 06:35:05 Ferritin [Mass/volume] in Serum or Plasma [code = 2276-4] Diagnostic Test Pending [facility] 2023-08-05 06:39:01 Parathyrin.intact [Mass/volume] in Serum or Plasma [code = 2731-8] Diagnostic Test Pending [facility] 2023-08-05 06:37:50 Alanine aminotransferase [Enzymatic activity/volume] in Serum or Plasma [code = 1742-6] Diagnostic Test Pending [facility] 2023-10-09 06:30:22 Hemoglobin [Mass/volume] in Blood [code = 718-7] Diagnostic Test Pending [facility] 2024-05-08 16:26:08 Glucose [Mass/volume] in Serum or Plasma [code = 2345-7] Diagnostic Test Pending [facility] 2023-08-09 05:00:00 Cobalamin (Vitamin B12) [Mass/volume] in Serum or Plasma [code = 2132-9] Diagnostic Test Pending [facility] 2024-05-08 16:25:30 Hemoglobin A1c/Hemoglobin.total in Blood [code = 4548-4] Diagnostic Test Pending [facility] 2023-08-09 05:00:00 Sodium [Moles/volume] in Serum or Plasma [code = 2951-2] Diagnostic Test Pending [facility] 2023-08-09 05:00:00 25-Hydroxyvitamin D3+25-Hydroxyvitamin D2 [Mass/volume] in Serum or Plasma [code = 63280-4] Diagnostic Test Pending [facility] 2023-08-04 17:57:30 Aluminum [Mass/volume] in Serum or Plasma [code = 5574-9] Diagnostic Test Pending [facility] 2023-08-09 05:00:00 Potassium [Moles/volume] in Serum or Plasma [code = 2823-3] Diagnostic Test Pending [facility] 2023-08-09 05:00:00 Creatinine [Mass/volume] in Serum or Plasma [code = 2160-0] Diagnostic Test Pending [facility] 2024-10-09 13:50:59 In-Center Hemodialysis Treatment [code = BWV112] Diagnostic Test Pending [facility] 2024-05-14 12:48:15 In-Center Hemodialysis Treatment [code = RBI234] Diet Order [facility] August 30, 2023 Diet Calorie 30 kcal/kg Fluid Value 1000 mL/d Phosphorus Value 1200 mg/d Potassium Value 2500 mg/d Protein Value 1.3 gm/kg Sodium Value 2000 mg/d Calculated Weight 89 kg dietary_diet_modification Carb Controlle d;
--- OUTSIDE RECORDS SUMMARY | 2024-11-22 17:42 | XMS_ITS | Encounter Summary ---
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
--- OUTSIDE RECORDS SUMMARY | 2024-11-22 17:42 | XMS_ITS | Encounter Summary ---
Author Organization [facility] Address [address] [facility] [place] [address] Care Team Providers Care Hardware Test Engineer Name Role Phone Santi Roy MD Primary Care Provider [phone] Encounter Details Date Type Department Care Team (Late st Contact Info) Description 03/13/2021 Telephone [facility] [address] [place] [address] Santi Angelo MD [address] OF [facility] [place] [id number] Social History Tobacco Use Types Packs/Day Years Used Date Smoking Tobacco: Former Cigarettes 1.5 45 1 944 - 1989 Smokeless Tobacco: Former Chew Alcohol Use Standard Drinks/Week Comments Not Currently 0 (1 standard drink = 0.6 oz pur e alcohol) 20yrs ago Sex and Gender Information Value Date Recorded Sex Assigned at Not on file 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 No / Unsure 02/20/2021 12:39 PM BACK DIGGER OPERATOR documented as of this encounter Plan of Treatment Not on file documented as of this encounter Visit Diagnoses Not on filedocumented in this encounter Care Teams Hardware Test Engineer Relationship Specialty Start Date End Date Santi Roy MD [address] [place] [address] PCP - General 12/18/19 documented as of this encounter
--- OUTSIDE RECORDS SUMMARY | 2024-11-22 17:42 | XMS_ITS | Encounter Summary ---
Author Organization [facility] Healthcare Address [address] [place] [address] Care Team Providers Care Dedenter Name Role Phone Santi Roy MD Primary Care Provider Itz Boyd MD Unavailable [phone] Joe Arce MD Unavailable Encounter Details Date Type Department Care Team (Late st Contact Info) Description 04/02/2024 Orders Only [facility] Health Information Management [address] [place] [phone] Scanning, Provider Social History Tobacco Use Types Packs/Day Years Used Date Smoking Tobacco: Former Cigarettes 0.1 50 0 02/23/1942 - 02/24/1992 Smokeless Tobacco: Former Alcohol Use Standard Drinks/Week Comments Not Currently 0 (1 standard drink = 0.6 oz pur e alcohol) [facility] Utilities Answer Date Recorded In the past 12 months has [employer], gas, oil, or water company threatened to [...] often do you attend chur ch or hinduism services? Never 03/01/2024 Do you belong to any clubs o r organizations such as religion groups, unions, fraternal or athletic groups, or [...] any time in the past 12 m [facility], were you homeless or living in a assisted (including now)? No 03/01/2024 Personal Safety Answer Date Recorded Have you ever been in or are you currently in a harmful physical or emotional relationship or is someone making you feel afraid or unsafe? 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
--- NOTE | 2024-11-22 19:37 | PM.IMHP ---
H&P: HPI History of Present Illness Date/Time: 11/22/24 19:37 Chief Complaint: Palpitation Narrative: This is an 84-year-old male patient who has a history of atrial fibrillation. Patient tells me that he has had cardioversion 2 times now. The patient has a history of hemodialysis and the nurses there had noted that his heart rate has been in the 120s. He was told by the dialysis nurse that he needed to go to the emergency room. The patient has been taking his diltiazem and metoprolol faithfully. His great grandson lives with him and is involved in his care. His grandson is also his power of associate attorney. The patient was found to be in AFib with RVR with a heart rate of 135. The patient was started on a Cardizem drip. The drip brought him down to the upper 90s and lower 100s. Abnormal labs his H&H is 9.4 and 27.3. Sodium was 135 with chloride 95. BUN is 23 creatinine 2.28. His lab blood sugar was 187 and point [place] [address] which is chronically elevated. He is a dialysis patient. Chest x-ray was read as mild bilateral bibasilar atelectasis and ground-glass opacities may represent pulmonary congestion. Cardiology has been consulted. The patient was placed on a Cardizem drip in the emergency room and was admitted to IMU as inpatient status on the date of service of 11/22/2024 Review of Systems Constitutional: Constitutional: Reports as per HPI and Reports no additional constitutional complaints Eyes: Eyes: Reports as per HPI and Reports no additional eye complaints ENT: Reports no additional ear, nose, mouth, and throat complaints and Reports Normal hearing present Cardiovascular: Cardiovascular: Reports no additional cardiovascular complaints Respiratory: Respiratory: Reports as per HPI and Reports no additional respiratory complaints Gastrointestinal: Gastrointestinal: Reports as per HPI and Reports no additional gastrointestinal complaints Musculoskeletal: Musculoskeletal: Reports no additional musculoskeletal complaints Integumentary/Breasts: Skin/Breast: Reports system reviewed and no additional complaints, except as docu Neurologic: Reports no additional neurologic complaints and Reports Normal hearing present Psychiatric: Psychiatric: Reports no additional psychiatric complaints and Reports as per HPI Hematologic/Lymphatic: Hematologic/Lymphatic: Reports no additional hematologic/lymphatic complaints Allergic/Immunologic: Allergic/Immunologic: Reports no additional allergic/immunologic complaints [facility] Past Medical History Medical History Obstructive sleep apnea End-stage renal disease on hemodialysis Insulin dependent diabetes mellitus Paroxysmal atrial fibrillation Hypertension Mitral valve regurgitation [id number] noted on RODNEY February 2020 Thrombus of left atrial appendage Duodenal ulcer disease Iron deficiency anemia Glaucoma Adenomatous colon polyp Chronic obstructive pulmonary disease Hyperlipidemia Primary osteoarthritis, unspecified site Surgical History Surgical History S/P dialysis catheter insertion History of cholecystectomy History of open reduction and internal fixation (ORIF) procedure (1977) repair of left lower extremity fracture History of cataract extraction with lens replacement History of right shoulder replacement (2010) History of bilateral knee replacement (2004) History of esophagogastroduodenoscopy (EGD) (12/2019) History of colonoscopy with polypectomy (12/2019) Family History Family History Mother Diabetes mellitus Heart disease Father Lung cancer Sibling Lung cancer Breast cancer Son , 52 years of age Drug abuse Social History Social History Social History: He is . His only son has passed. His great grandson jessica Reyes list with him and helps to take care from. Surrogate medical decision maker: bessie Lauren ([phone]). Code status: Full code. Smoking packs per day: 1 Smoking cigarettes per day: 20.0 Years smoked: 50 Smoking pack-years: 50.00 Smoking status: Former smoker Tobacco type: cigarettes Second hand tobacco smoke exposure: Yes Smoking end date: 02/07/02 Alcohol intake: never Substance use: never Substance use type: does not use Last use: 1999 Do You Feel Safe in your Home?: Yes Lack of Transportation: No Lack of Food: Never True Current Housing: I Have Housing Concerned About Future Housing: No Difficulty Paying Gas/Electric Bills: No Difficulty Paying for Meds: No Currently Unemployed: No Education: Grade School Difficulty w/ Childcare or Family Care: No Living arrangements: with family Additional living arrangements comments: Lives in [place]. His grandson whom he helped raised lives with him. Occupation/Education: retired Additional occupation/education comments: [employer] Spiritual care concerns: No Meds Home Medications and Allergies Home Medications ?Medication ?Instructions ?Recorded ?Confirmed ?Type furosemide 20 mg tablet 20 mg PO Q12H 04/27/19 12/03/24 History latanoprost 0.005 % eye drops 1 drop ophthalmic (eye) 04/27/19 12/03/24 History alcohol swabs (Alcohol Prep Pads) 1 pad topical TID #100 ea 05/13/22 12/03/24 Rx blood-glucose meter (OneTouch #1 ea 11/22/22 12/03/24 Rx Ultra2 Meter) blood sugar diagnostic (EasyMax #300 ea 04/13/23 12/03/24 Rx strips) pen needle, diabetic 32 gauge x #100 ea 11/07/23 12/03/24 Rx (UltiCare Pen Needle) fluticasone fur. 100 mcg-umeclid See Rx Instructions .Route 11/14/23 12/03/24 Rx 62.5 mcg-vilant 25 mcg .COMPLEX #180 ea inhalat.powder (Trelegy Ellipta) amlodipine 5 mg tablet 10 mg PO DAILY 08/06/24 12/03/24 History diltiazem HCl 300 mg 300 mg PO DAILY 08/06/24 12/03/24 History capsule,extended release 24 hr (Cardizem CD) lancets 30 gauge (Easy Touch Twist #300 ea 09/27/24 12/03/24 Rx Lancets) alprazolam 0.5 mg tablet (Xanax) 0.5 mg PO BID PRN anxiety #60 tabs 10/29/24 12/03/24 Rx apixaban 2.5 mg tablet 2.5 mg PO Q12H 11/27/24 12/03/24 History atorvastatin 20 mg tablet 20 mg PO HS 11/27/24 12/03/24 History clonidine HCl 0.1 mg tablet 0.1 mg PO Q12H 11/27/24 12/03/24 History metoprolol succinate 50 mg 50 mg PO HS 11/27/24 12/03/24 History tablet,extended release 24 hr (Toprol XL) pantoprazole 40 mg tablet,delayed 40 mg PO Q12H 11/27/24 12/03/24 History release amiodarone 400 mg tablet 400 mg PO DAILY #90 tabs 11/28/24 12/03/24 Rx insulin glargine 100 unit/mL (3 See Rx Instructions .Route 12/03/24 12/03/24 Rx mL) subcutaneous pen (Lantus .COMPLEX #15 mL Solostar U-100 Insulin) Allergies Allergy/AdvReac Type Severity Reaction Status Date / Time No Known Allergies Allergy Verified 12/03/24 14:27 Vital Signs Vital Signs - 24 hr 11/22/24 12:50 11/22/24 14:47 11/22/24 14:47 Temperature 98.7 F 97.8 F Pulse Rate 135 H 114 H 114 H Respiratory Rate 18 20 23 H Blood Pressure 130/55 L 133/85 133/85 Pulse Oximetry 95 96 96 Oxygen Delivery Room Air Room Air 11/22/24 14:49 11/22/24 14:49 11/22/24 16:37 Temperature 97.8 F Pulse Rate 106 H 106 H 120 H Respiratory Rate 20 Blood Pressure 133/85 133/85 Pulse Oximetry 97 Oxygen Delivery 11/22/24 16:40 11/22/24 16:47 11/22/24 17:01 Temperature Pulse Rate 95 98 103 H Respiratory Rate 27 H 16 28 H Blood Pressure 128/113 H 100/59 L 110/97 H Pulse Oximetry 94 97 95 Oxygen Delivery 11/22/24 17:17 Temperature Pulse Rate 104 H Respiratory Rate 19 Blood Pressure 102/75 Pulse Oximetry 95 Oxygen Delivery Exam Const: General: cooperative, healthy appearing, comfortable, no acute distress, well developed, awake, Physically active, average body habitus and well nourished Nutritional Appearance: average body habitus and well nourished Orientation/consciousness: oriented to person, oriented to place, oriented to time and patient oriented x3 Limitations: no limitations HENMT: Head: normal to inspection, No palpable skull fracture present, normocephalic, atraumatic and abrasion Eyes: General: appearance normal, both eyes and all related structures Neck: Neck: normal visual inspection and full ROM Chest: Chest palpation & inspection: normal inspection of the chest Resp: Effort & Inspection: normal respiratory effort Cardio: Palpation: normal PMI Rate: tachycardic Rhythm: abnormal rhythm irregularly irregular GI: Inspection: normal to inspection Percussion: Yes normal to percussion Back/Spine/Pelvis: Back: no CVA tenderness Skin: General skin exam: normal color Lesions: no lesions Rashes: no rashes Trauma: no lacerations or abrasions Wounds: no wounds Hair: normal Nails: normal Neuro: General: oriented to person, oriented to place, oriented to time and patient oriented x3 Cranial nerves: Yes Equal, round and reactive pupils present and Yes Normal hearing present Motor exam (neuro): 5/5 motor strength present throughout Sensory Exam: normal sensation Extrem: General: normal to inspection Right upper extremity: normal to inspection and shoulder/upper arm Left upper extremity: normal to inspection and shoulder/upper arm Right lower extremity: normal to inspection Left lower extremity: normal to inspection Other: He has very thin dried skin bilateral lower extremity Psych: Appearance: grossly normal Mental Status: mental status grossly normal Speech and movement: Normal speech and movement present Affect: normal affect Attitude: cooperative Thought process: Normal thought process present Thought content: Yes Normal thought content present Insight: Good insight present (Psych) Judgement: Good judgement present (Psych) H&P: Results Labs Labs: Short CBC 11/22/24 Range/Units 15:07 WBC 6.2 (4.5-10.0) K/mm3 Hgb 9.4 L (14.0-18.0) g/dL Hct 27.3 L (42.0-52.0) % Plt Count 154 (150-375) k/mm3 BMP 11/22/24 15:07 Sodium 135 L Potassium 4.1 Chloride 95 L Carbon Dioxide 34 H BUN 23 H Creatinine 2.28 H Glucose 187 H Calcium 8.7 Liver Function 11/22/24 Range/Units 15:07 Total Bilirubin 0.5 (0.2-1.3) mg/dL AST 28 (17-59) U/L ALT 27 (6-50) U/L Alkaline Phosphatase 95 (38-126) U/L Albumin 4.0 (3.5-5.1) g/dL ECG Interpretation: Intervals [place] Rate: 119 P: 0 OK: 0 QRS: 8 QRSD: 89 T: 5 QT: 326 QTc: 460 Interpretive Statements ATRIAL FIBRILLATION WITH RAPID VENTRICULAR RESPONSE LOW QRS VOLTAGE IN PRECORDIAL LEADS POSSIBLE RIGHT VENTRICULAR CONDUCTION DELAY BORDERLINE ST-T WAVE ABNORMALITY- INFERIOR LEADS BASELINE ARTIFACT- I, III, AVR, AVL ABNORMAL ECG Compared to ECG 04/07/2024 21:09:29 Sinus rhythm no longer present Electronically Signed On 11-22-2024 13:00:21 CDT by Michael Mccabe D.O. Imaging Chest x-ray: Radiologist's impression: Impressions Chest X-Ray 11/22/24 16:00 IMPRESSION: Mild bilateral basilar atelectasis and groundglass opacity may represent pulmonary congestion. Assessment and Plan Assessment and plan (1) Atrial fibrillation with RVR: Code(s): I48.91 - Unspecified atrial fibrillation Status: Acute Assessment and Plan: -the patient stated that he has been cardioverted x2. -the patient stated that he has been taking his metoprolol on diltiazem faithfully. -his hr was noted to be a higher heart rate over the last couple days and he has had palpitations with weakness and dizziness. -he is currently on a Cardizem drip. His heart rate is 90s to lower 100s. On 04/02/2024 the patient had a RODNEY with cardioversion. RODNEY with Cardioversion Date of procedure: 04/02/24 Procedure Type: 1. Multiplanar transesophageal echocardiography with color-flow pulse-wave Doppler 2. Moderate sedation 3. Electrical cardioversion Diagnosis: Atrial fibrillation Indications: Atrial fibrillation -cardiology consultation is greatly appreciated. -continue with apixaban -continue with metoprolol if blood pressure allows -current blood pressure is 120/63. Hold if map less than 60 (2) CHF (congestive heart failure): Qualifiers: Heart failure chronicity: unspecified Heart failure type: unspecified Qualified Code(s): I50.9 - Heart failure, unspecified Code(s): I50.9 - Heart failure, unspecified Status: Acute Assessment and Plan: -continue with metoprolol if blood pressure allows. -continue with for Lasix. -he is a dialysis patient. -echo on 02/22/2024 was read as following 1. Technically difficult study with limited views. 2. Left ventricular chamber dimension is normal. 3. Left ventricular systolic function is normal, estimated at 65-70%. 4. There is mildly increased left ventricular wall thickness. 5. Left atrial chamber dimension is moderately enlarged. 6. There is mild tricuspid valve regurgitation. -chest x-ray today suggests pulmonary congestion. (3) Hypertension: Code(s): I10 - Essential (primary) hypertension Status: Chronic Assessment and Plan: -patient is on a Cardizem drip and his blood pressure is currently 120/60. -continue with metoprolol if blood pressure allows. -I did hold amlodipine, hydralazine, and clonidine for tonight as his blood pressure soft. Please re-evaluate in the morning. (4) Hyperlipidemia: Code(s): E78.5 - Hyperlipidemia, unspecified Status: Chronic Assessment and Plan: -continue with atorvastatin and monitor liver enzymes. (5) CKD (chronic kidney disease) stage 4, GFR 15-29 ml/min: Code(s): N18.4 - Chronic kidney disease, stage 4 (severe) Status: Acute Assessment and Plan: monitor daily bmps (6) SALOME (obstructive sleep apnea): Code(s): G47.33 - Obstructive sleep apnea (adult) (pediatric) Status: Acute Assessment and Plan: -continue with CPAP with home settings. (7) Anxiety: Code(s): F41.9 - Anxiety disorder, unspecified Status: Acute Assessment and Plan: -p.r.n. alprazolam as home dose (8) Type 2 diabetes mellitus with hyperglycemia, with long-term current use of insulin: Code(s): E11.65 - Type 2 diabetes mellitus with hyperglycemia; Z79.4 - intermission coordinator (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 of insulin Status: Chronic Assessment and Plan: -pharmacy to adjust his long-acting insulin. -Accu-Cheks AC and HS with low-dose sliding scale. -diabetic renal diet -A1c if not performed in the last 3 months. Last A1c noted to be 6.8 on 02/21/2024. Plan Glaucoma continue with home eye drops. Quality VTE Prophylaxis VTE prophylaxis: pharmacologic ordered
--- NOTE | 2024-11-22 19:57 | ADMGEN ---
This patient, Leobardo Reyes, was admitted to IMU Room 200-01. Patient/family oriented to hospital policies and general routines including ID bracelet, bed and alarms, visiting hours, pain management, procedures, bathroom and other care routines, personal items, smoking policy, room service/diet, and visiting hours. Information on how to activate the Rapid Response Team has been discussed. Patient/Family are encouraged to report perceived risks to care and to ask questions if they do not understand what they are told or what they should do.
[2024-11-22] MEDS: APIXABAN 2.5 MG TABLET PO (23:39)
[2024-11-22] MEDS: FUROSEMIDE 20 MG TABLET PO (23:39)
[2024-11-22] MEDS: ATORVASTATIN 20 MG TABLET PO (23:39)
[2024-11-22] MEDS: LATANOPROST 0.005% OP SOLN 2.5 ML BTL 1 DROP EACH EYE (23:41)
[2024-11-23] VITALS (22 sets, daily range): BP systolic 103–147; BP diastolic 52–80; PULSE 64–138; RESP 12–24; TEMP 36.1–37; O2SAT 92–100
[2024-11-23 00:02] LABS: Hemoglobin A1C 5.9 % (<5.7)
[2024-11-23 01:01] LABS: MRSA (PCR) NOT DETECTED (NOT DETECTE)
[2024-11-23 05:26] LABS: Hematocrit 27.9 % (42.0-52.0); Hemoglobin 9.5 g/dL (14.0-18.0); Mean Corpuscular HGB Conc 34.1 g/dl (32-36); Mean Corpuscular Hemoglobin 33.8 pg (26-34); Mean Corpuscular Volume 99.3 fl (80-100); Platelet Count Result 156 k/mm3 (150-375); Red Blood Count 2.81 M/mm3 (4.6-6.20); White Blood Count 7.3 K/mm3 (4.5-10.0)
[2024-11-23 05:36] LABS: Anion Gap 6 mmol/L (4-12); Blood Urea Nitrogen 30 mg/dL (9-20); Calcium 8.9 mg/dL (8.4-10.2); Carbon Dioxide 35 mmol/L (22-30); Chloride 97 mmol/L (98-107); Estimated CRCL calculation 21 ml/min; Estimated Glomerular Filt Rate 20; Glucose 157 mg/dL (65-110); Potassium 4.3 mmol/L (3.4-5.0); Sodium 138 mmol/L (137-145)
--- NOTE | 2024-11-23 08:00 | P.PNIM_ITS ---
Progress Note: A&P Assessment and Plan (1) Atrial fibrillation with RVR: Code(s): I48.91 - Unspecified atrial fibrillation Status: Acute Assessment and Plan: * the patient stated that he has been cardioverted x2. * the patient stated that he has been taking his metoprolol on diltiazem faithfully. * his hr was noted to be a higher heart rate over the last couple days and he has had palpitations with weakness and dizziness. * he is currently on a Cardizem drip. His heart rate is 90s to lower 100s. * On 04/02/2024 the patient had a RODNEY with cardioversion for atrial fibrillation * Cardiology consult, appreciate further recommendations * continue with apixaban, and metoprolol if blood pressure allows * BP is 126/62 - Hold if map less than 60 (2) CHF (congestive heart failure): Qualifiers: Heart failure chronicity: unspecified Heart failure type: unspecified Qualified Code(s): I50.9 - Heart failure, unspecified Code(s): I50.9 - Heart failure, unspecified Status: Acute Assessment and Plan: * continue with metoprolol if blood pressure allows, continue with for Lasix * dialysis patient * echo on 02/22/2024 was read as following 1. Technically difficult study with limited views. 2. Left ventricular chamber dimension is normal. 3. Left ventricular systolic function is normal, estimated at 65-70%. 4. There is mildly increased left ventricular wall thickness. 5. Left atrial chamber dimension is moderately enlarged. 6. There is mild tricuspid valve regurgitation. * chest x-ray today suggests pulmonary congestion. (3) Hypertension: Code(s): I10 - Essential (primary) hypertension Status: Acute Assessment and Plan: * patient is on a Cardizem drip and his blood pressure is currently 120/60. * continue with metoprolol if blood pressure allows. * Hold amlodipine, hydralazine, and clonidine for tonight as his blood pressure soft. Please re-evaluate in the morning. (4) Hyperlipidemia: Code(s): E78.5 - Hyperlipidemia, unspecified Status: Acute Assessment and Plan: * continue with atorvastatin and monitor liver enzymes. (5) CKD (chronic kidney disease) stage 4, GFR 15-29 ml/min: Code(s): N18.4 - Chronic kidney disease, stage 4 (severe) Status: Acute Assessment and Plan: * Dialysis Tuesday//Tuesday * Consult nephrology for further possible dialysis needs (6) SALOME (obstructive sleep apnea): Code(s): G47.33 - Obstructive sleep apnea (adult) (pediatric) Status: Acute Assessment and Plan: * continue with CPAP with home settings. (7) Anxiety: Code(s): F41.9 - Anxiety disorder, unspecified Status: Acute Assessment and Plan: * p.r.n. alprazolam as home dose (8) Type 2 diabetes mellitus with hyperglycemia, with long-term current use of insulin: Code(s): E11.65 - Type 2 diabetes mellitus with hyperglycemia; Z79.4 - [facility] (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 of insulin Status: Acute Assessment and Plan: * pharmacy to adjust his long-acting insulin. * Accu-Cheks AC and HS with low-dose sliding scale. * diabetic renal diet * A1c 5.9% 11/22/2024 Plan Glaucoma continue with home eye drops. Subjective Date/time seen: 11/23/24 08:00 Interval history: 84-year-old male patient who has a history of atrial fibrillation. Patient tells me that he has had cardioversion 2 times now. The patient has a history of hemodialysis and the nurses there had noted that his heart rate has been in the 120s. 11/23/2024 The patient sitting comfortably in bed at time of examination. Denies any chest pain, shortness a of breath, nausea/vomiting, abdominal pain or headache/dizziness. Cardiology consulted, appreciate further recommendations. Heart rate still 100+, however he remains asymptomatic. Patient requires dialysis, will ensure patient goes tomorrow to maintain schedule. Review of Systems Constitutional: Constitutional: Reports as per HPI and Reports no additional constitutional complaints Eyes: Eyes: Reports as per HPI and Reports no additional eye complaints ENT: Reports system reviewed and no additional complaints, except as documented and Reports Normal hearing present Cardiovascular: Cardiovascular: Reports no additional cardiovascular complaints Respiratory: Respiratory: Reports as per HPI and Reports no additional respiratory complaints Gastrointestinal: Gastrointestinal: Reports as per HPI and Reports no additional gastrointestinal complaints Musculoskeletal: Musculoskeletal: Reports no additional musculoskeletal complaints Integumentary/Breasts: Skin/Breast: Reports system reviewed and no additional complaints, except as docu Neurologic: Reports system reviewed and no additional complaints, except as documented and Reports Normal hearing present Psychiatric: Psychiatric: Reports no additional psychiatric complaints and Reports as per HPI Hematologic/Lymphatic: Hematologic/Lymphatic: Reports no additional hematologic/lymphatic complaints Allergic/Immunologic: Allergic/Immunologic: Reports no additional allergic/immunologic complaints Exam Const: General: cooperative, healthy appearing, comfortable, no acute distress, well developed, awake, Physically active, average body habitus and well nourished Nutritional Appearance: average body habitus and well nourished Orientation/consciousness: oriented to person, oriented to place, oriented to time and patient oriented x3 Limitations: no limitations HENMT: Head: normal to inspection, No palpable skull fracture present, normo cephalic, atraumatic and abrasion Eyes: General: appearance normal, both eyes and all related structures Pupils: Equal, round and reactive pupils present Neck: Neck: normal visual inspection and full ROM Chest: Chest palpation & inspection: normal inspection of the chest Resp: Effort & Inspection: normal respiratory effort Cardio: Palpation: normal PMI Rate: tachycardic Rhythm: abnormal rhythm irregularly irregular GI: Inspection: normal to inspection : General: Yes no CVA tenderness Back/Spine/Pelvis: Back: no CVA tenderness Skin: General skin exam: normal color Lesions: no lesions Rashes: no rashes Trauma: no lacerations or abrasions Wounds: no wounds Hair: normal Nails: normal Neuro: General: oriented to person, oriented to place, oriented to time and patient oriented x3 Cranial nerves: Yes Equal, round and reactive pupils present and Yes Normal hearing present Motor exam (neuro): 5/5 motor strength present throughout Sensory Exam: normal sensation Extrem: General: normal to inspection Right upper extremity: normal to inspection and shoulder/upper arm Left upper extremity: normal to inspection and shoulder/upper arm Right lower extremity: normal to inspection Left lower extremity: normal to inspection Other: He has very thin dried skin bilateral lower extremity Psych: Appearance: grossly normal Mental Status: mental status grossly normal Speech and movement: Normal speech and movement present Affect: normal affect Attitude: cooperative Thought process: Normal thought process present Insight: Good insight present (Psych) Judgement: Good judgement present (Psych) Objective Data Vital Signs Vital Signs: Vital Signs - 24 hr 11/22/24 12:50 11/22/24 14:47 11/22/24 14:47 Temperature 98.7 F 97.8 F Pulse Rate 135 H 114 H 114 H Respiratory Rate 18 20 23 H Blood Pressure 130/55 L 133/85 133/85 Pulse Oximetry 95 96 96 Oxygen Delivery Room Air Room Air 11/22/24 14:49 11/22/24 14:49 11/22/24 16:37 Temperature 97.8 F Pulse Rate 106 H 106 H 120 H Respiratory Rate 20 Blood Pressure 133/85 133/85 Pulse Oximetry 97 Oxygen Delivery 11/22/24 16:40 11/22/24 16:47 11/22/24 17:01 Temperature Pulse Rate 95 98 103 H Respiratory Rate 27 H 16 28 H Blood Pressure 128/113 H 100/59 L 110/97 H Pulse Oximetry 94 97 95 Oxygen Delivery 11/22/24 17:17 11/22/24 19:31 11/22/24 19:56 Temperature Pulse Rate 104 H 96 97 Respiratory Rate 19 21 H 14 Blood Pressure 102/75 119/76 121/78 Pulse Oximetry 95 95 98 Oxygen Delivery 11/22/24 20:00 11/22/24 20:00 11/22/24 20:07 Temperature 98.2 F Pulse Rate 113 H 106 H 124 H Respiratory Rate 22 H Blood Pressure 101/65 Pulse Oximetry 95 Oxygen Delivery 11/22/24 21:00 11/22/24 22:00 11/22/24 22:00 Temperature Pulse Rate 118 H 118 H Respiratory Rate Blood Pressure 120/63 Pulse Oximetry Oxygen Delivery Room Air 11/22/24 22:56 11/23/24 00:00 11/23/24 00:00 Temperature 98.1 F Pulse Rate 111 H 122 H 122 H Respiratory Rate 20 18 Blood Pressure 119/72 119/72 Pulse Oximetry 96 98 Oxygen Delivery Autopap 11/23/24 00:00 11/23/24 00:00 11/23/24 02:00 Temperature Pulse Rate 121 H 109 H Respiratory Rate Blood Pressure 126/74 Pulse Oximetry Oxygen Delivery CPAP 11/23/24 02:00 11/23/24 02:03 11/23/24 04:00 Temperature Pulse Rate 109 H 107 H Respiratory Rate 24 H Blood Pressure Pulse Oximetry 95 Oxygen Delivery Autopap CPAP 11/23/24 04:00 11/23/24 04:00 11/23/24 04:00 Temperature 98.0 F Pulse Rate 108 H 120 H 120 H Respiratory Rate 16 Blood Pressure 103/64 103/64 Pulse Oximetry 94 Oxygen Delivery 11/23/24 05:49 11/23/24 06:00 Temperature Pulse Rate 122 H 115 H Respiratory Rate Blood Pressure 126/62 Pulse Oximetry Oxygen Delivery Intake/Output Intake/Output: Intake & Output 11/20/24 11/21/24 11/22/24 11/23/24 23:59 23:59 23:59 23:59 Intake Total 26.9 239.1 Output Total 525 Balance 26.9 -285.9 Meds/Results Medications: Active Medications Generic Name Dose Route Start Last Admin Trade Name Freq PRN Reason Stop Dose Admin Alprazolam 0.5 mg 11/22/24 23:12 Alprazolam (*Crx) 0.5 Mg Tablet PO BID PRN Anxiety Apixaban 2.5 mg 11/22/24 23:15 11/22/24 23:39 Apixaban 2.5 Mg Tablet PO 2.5 mg Q12HR FAISAL Administration Atorvastatin Calcium 20 mg 11/22/24 23:15 11/22/24 23:39 Atorvastatin 20 Mg Tablet PO 20 mg DAILY FAISAL Administration Dextrose 12.5 gm 11/22/24 23:25 Dextrose 50% 25 Gm/50 Ml Syringe IV PUSH PRN PRN Hypoglycemia Protocol Dextrose 12.5 gm 11/22/24 23:52 Dextrose 50% 25 Gm/50 Ml Syringe IV PUSH PRN PRN Hypoglycemia Protocol Fluticasone/Umeclidinium/Vilanterol 1 puff 11/22/24 23:15 11/23/24 07:11 Fluticasone/Umeclidin/Vilanter 100-62.5-25 Mcg Ellipta INHALATION Not Given DAILYRT FAISAL Furosemide 20 mg 11/22/24 23:15 11/22/24 23:39 Furosemide 20 Mg Tablet PO 20 mg BID FAISAL Administration Glucagon 1 mg 11/22/24 23:25 Glucagon For Inj 1 Mg Vial IM PRN PRN Hypoglycemia Protocol Glucagon 1 mg 11/22/24 23:52 Glucagon For Inj 1 Mg Vial IM PRN PRN Hypoglycemia Protocol Glucose 15 gm 11/22/24 23:25 Glucose Oral Gel 15 Gm Of Glucse In 37.5 Gm Tube PO PRN PRN Hypoglycemia Protocol Glucose 15 gm 11/22/24 23:52 Glucose Oral Gel 15 Gm Of Glucse In 37.5 Gm Tube PO PRN PRN Hypoglycemia Protocol Diltiazem HCl 100 mg in 100 mls @ 5 mls/hr 11/22/24 23:00 Cardizem 100 Mg/100 Ml IV CONT .Q20H FAISAL 5 MG/HR Dextrose 1,000 mls @ 100 mls/hr 11/22/24 23:25 Dextrose 5% 1,000 Ml IVPB PRN PRN Hypoglycemia Protocol Dextrose 1,000 mls @ 100 mls/hr 11/22/24 23:52 Dextrose 5% 1,000 Ml IVPB PRN PRN Hypoglycemia Protocol Insulin Aspart 2 - 5 units 11/23/24 08:00 Insulin Aspart (*Bkc) 100 Units/Ml SUB-Q TIDWM FAISAL Protocol Insulin Glargine 13.6 units 11/23/24 21:00 Insulin Glargine (*Bkc) 100 Units/Ml SUB-Q HS FAISAL Latanoprost 1 drop 11/22/24 23:15 11/22/24 23:41 Latanoprost 0.005% Op Soln 2.5 Ml Btl EACH EYE 1 drop HS FAISAL Administration Metoprolol Succinate 50 mg 11/23/24 09:00 Metoprolol Succinate Ext Rel 50 Mg Tabcr PO DAILY FAISAL Pantoprazole Sodium 40 mg 11/23/24 09:00 Pantoprazole 40 Mg Tablet PO Q12HR [facility] Radiology Results: ITS Impressions Chest X-Ray 11/22/24 16:00 IMPRESSION: Mild bilateral basilar atelectasis and groundglass opacity may represent pulmonary congestion. Labs Labs: Laboratory Results - last 24 hr 11/22/24 11/22/24 11/22/24 15:07 21:22 23:22 WBC 6.2 RBC 2.78 L Hgb 9.4 L Hct 27.3 L MCV 98.2 MCH 33.8 MCHC 34.4 RDW 13.0 Plt Count 154 MPV 8.9 Immature Gran % (Auto) 0.3 Neut % (Auto) 69.8 Lymph % (Auto) 14.8 L [place] % (Auto) 12.2 H Eos % (Auto) 2.1 Baso % (Auto) 0.8 Lymph # (Auto) 0.92 [place] # (Auto) 0.8 H Eos # (Auto) 0.1 Baso # (Auto) 0.1 Abs Immat Gran (auto) 0.02 Absolute Neuts (auto) 4.3 Absolute Nucleated RBC 0.000 Nucleated RBC % 0.0 PT Cancelled INR Cancelled APTT Cancelled Sodium 135 L Potassium 4.1 Chloride 95 L Carbon Dioxide 34 H Anion Gap 6 BUN 23 H Creatinine 2.28 H Estim Creat Clear Calc 27 Estimated GFR 28 L Glucose 187 H POC Capillary Glucose 210 H Hemoglobin A1c 5.9 H Calcium 8.7 Total Bilirubin 0.5 AST 28 ALT 27 Alkaline Phosphatase 95 NT-Pro-B Natriuret Pep 68105 H Total Protein 7.1 Albumin 4.0 Nasal MRSA (PCR) 11/22/24 11/23/24 23:40 04:02 WBC 7.3 RBC 2.81 L Hgb 9.5 L Hct 27.9 L MCV 99.3 MCH 33.8 MCHC 34.1 RDW 13.0 Plt Count 156 MPV 9.8 Immature Gran % (Auto) Neut % (Auto) Lymph % (Auto) [place] % (Auto) Eos % (Auto) Baso % (Auto) Lymph # (Auto) [place] # (Auto) Eos # (Auto) Baso # (Auto) Abs Immat Gran (auto) Absolute Neuts (auto) Absolute Nucleated RBC Nucleated RBC % PT INR APTT Sodium 138 Potassium 4.3 Chloride 97 L Carbon Dioxide 35 H Anion Gap 6 BUN 30 H Creatinine 2.97 H Estim Creat Clear Calc 21 Estimated GFR 20 L Glucose 157 H POC Capillary Glucose Hemoglobin A1c Calcium 8.9 Total Bilirubin AST ALT Alkaline Phosphatase NT-Pro-B Natriuret Pep Total Protein Albumin Nasal MRSA (PCR) Not detected Quality VTE Prophylaxis VTE prophylaxis: pharmacologic ordered
[2024-11-23] MEDS: FLUTICASONE/UMECLIDIN/VILANTER 100-62.5-25 MCG ELLIPTA 1 PUFF INHALATION (08:30)
[2024-11-23] MEDS: ATORVASTATIN 20 MG TABLET PO (08:35)
[2024-11-23] MEDS: FUROSEMIDE 20 MG TABLET PO ×2 (08:35→17:00)
[2024-11-23] MEDS: PANTOPRAZOLE 40 MG TABLET PO (08:35)
[2024-11-23] MEDS: APIXABAN 2.5 MG TABLET PO (08:36)
[2024-11-23] MEDS: METOPROLOL SUCCINATE EXT REL 50 MG TABCR PO (08:36)
[2024-11-23] MEDS: dilTIAZem 100 MG/100 ML 100 MG/100 ML BAG IV CONT (08:40)
--- OUTSIDE RECORDS SUMMARY | 2024-11-23 08:47 | XMS_ITS | Clinical Summary ---
Author Organization [facility] Address [address] [place] [address] Care Team Providers Care Tiler'S Assistant Name Role Phone Santi Roy MD Primary Care Provider [phone] Source Comments [facility],non-owned Affiliates and Associated Physician Practices is amultiple site organization consisting of ambulatory clinics and hospital sitesin [place], [place], [place] and [place]. This disclosure is being madepursuant to the Care Everywhere program and may not contain all information available regarding this patient. 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 Gender Identity Not on file Sexual [...] this topic Medical Devices Implanted Type Area Zoo Caretaker Device Identifier Shelf Expiration Date Model / Serial / Lot Mesh Srg 6x3in Lg Pore Knit Mfl [facility] Rnd Implanted:Qty: 1 on 03/30/2021 by Santi Angelo MD at [facility] Left: [employer] 11/04/2025 [id number] / / [id number] Mesh Srg 6x3in Lg Pore Knit Mfl Jose Rnd Implanted:Qty: 1 on 03/30/2021 by Santi Angelo MD at [facility] Right: [employer] 11/04/2025 [id number] / / [id number] Insurance AETNA AETNA Care Teams Tiler'S Assistant Relationship Specialty Start Date End Date Santi Roy MD [address] [place] [address] PCP - General 12/18/19
--- OUTSIDE RECORDS SUMMARY | 2024-11-23 08:47 | XMS_ITS | Clinical Summary ---
Author Organization [facility] Address [address] [place] [id number] Phone Care Team Providers Care Ui Engineer Name Role Phone Unavailable Primary Care Provider Unavailabl e Allergies No known active allergies Medications pantoprazole (PROTONIX) 40 MG EC tablet Take [...] Units under the skin every night Active traMADol-acetam inophen (ULTRACET) 37.5-325 MG per tablet Take 1 [...] (one) time each day 90 capsule 3 1 Active Fluticasone-Ume clidin-Vilant (Trelegy Ellipta) 100-62.5-25 MCG/INH aerosol powder Inhale Active Albuterol Sulfate (VENTOLIN HFA IN) Inhale 30 mg Active hydrALAZINE (APRESOLINE) 25 MG tablet Take [...] TAKE 1 TABLET DAILY 30 tablet 11 2 Active furosemide (LASIX) 80 MG tablet Take 1 tablet (80 mg total) by mouth 1 (one) time each day 90 tablet 1 4 Active Hospital, Clinic, or Other Facility Administered [...] atrial fibrillation 01/16/2020 04/09/2020 Hyperlipidemia 01/16/2020 10/31/2020 Family History Medical History Relation Comments Cancer [...] at Not on file Legal Sex Male 3:33 PM MST Gender Identity Not on file Sexual Orientation [...] 10:23 AM CDT Height 177.8 cm (5' 10) 06/29/2023 8:55 AM CDT Body Mass Index 34.44 09/16/2020 10:23 AM CDT Plan of Treatment Health Maintenance Due Date Last Done Comments Diabetic Foot Exam 1950 Ophthalmology Exam 1950 Pneumococcal PPSV23/PCV13 65 + Years / High and Highest Risk (1 of 5 - PCV) 06/10/1959 Influenza Vaccine (#1) 2024 Insurance AET AET [employer] MEDICARE
--- OUTSIDE RECORDS SUMMARY | 2024-11-23 08:49 | XMS_ITS | Encounter Summary ---
Author Organization [facility] Address [address] [place] [address] Care Team Providers Care Microfilm Clerk Name Role Phone Santi Roy MD Primary Care Provider [phone] Encounter Details Date Type Department Care Team (Late st Contact Info) Description 04/23/2021 Telephone [facility] [address] [place] [address] Santi Angelo MD [address] OF [facility] [place] [address] Social History Tobacco Use Types Packs/Day Years Used Date Smoking Tobacco: Former Cigarettes 1.5 45 1 944 - 1989 Smokeless Tobacco: Former Chew Alcohol Use Standard Drinks/Week Comments Not Currently 0 (1 standard drink = 0.6 oz pur e alcohol) 20yrs ago Sex and Gender Information Value Date Recorded Sex Assigned at Not on file 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
--- OUTSIDE RECORDS SUMMARY | 2024-11-23 08:49 | XMS_ITS | Encounter Summary ---
Author Organization [facility] Address [address] [place] [address] Care Team Providers Care Steamtable Attendant Railroad Name Role Phone Santi Roy MD Primary Care Provider [phone] Encounter Details Date Type Department Care Team (Late st Contact Info) Description 10/28/2020 Telephone [facility] [address] [place] [address] Santi Angelo MD [address] OF [facility] [place] [address] Social History Tobacco Use Types Packs/Day Years Used Date Smoking Tobacco: Former Cigarettes 1.5 45 Smokeless Tobacco: Former Chew Alcohol Use Standard Drinks/Week Comments Not Currently 0 (1 standard drink = 0.6 oz pur e alcohol) 20yrs ago Sex and Gender Information Value Date Recorded Sex Assigned at Not on file 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
--- OUTSIDE RECORDS SUMMARY | 2024-11-23 08:49 | XMS_ITS | Encounter Summary ---
Author Organization [facility] Address [address] [place] [address] Care Team Providers Care Evp Name Role Phone Santi Roy MD Primary Care Provider [phone] Encounter Details Date Type Department Care Team (Late st Contact Info) Description 09/30/2020 Telephone [facility] [address] [place] [address] Santi Angelo MD [address] OF [facility] [place] [address] Social History Tobacco Use Types Packs/Day Years Used Date Smoking Tobacco: Former Cigarettes 1.5 45 Smokeless Tobacco: Former Chew Alcohol Use Standard Drinks/Week Comments Not Currently 0 (1 standard drink = 0.6 oz pur e alcohol) 20yrs ago Sex and Gender Information Value Date Recorded Sex Assigned at Not on file 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
--- OUTSIDE RECORDS SUMMARY | 2024-11-23 08:49 | XMS_ITS | Encounter Summary ---
Author Organization [facility] Address [address] [place] [address] Care Team Providers Care Fiscal Technician Name Role Phone Santi Roy MD Primary Care Provider Encounter Details Date Type Department Care Team (Late st Contact Info) Description 05/15/2021 Telephone [facility] [address] [place] [address] Santi Angelo MD [address] OF [facility] [place] [address] Social History Tobacco Use Types Packs/Day Years Used Date Smoking Tobacco: Former Cigarettes 1.5 45 1 944 - 1989 Smokeless Tobacco: Former Chew Alcohol Use Standard Drinks/Week Comments Not Currently 0 (1 standard drink = 0.6 oz pur e alcohol) 20yrs ago Sex and Gender Information Value Date Recorded Sex Assigned at Not on file 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
--- OUTSIDE RECORDS SUMMARY | 2024-11-23 08:49 | XMS_ITS | Encounter Summary ---
Author Organization [facility] Address [address] [place] [address] Care Team Providers Care Associate Programmer Name Role Phone Santi Roy MD Primary Care Provider [phone] Encounter Details Date Type Department Care Team (Late st Contact Info) Description 09/29/2020 Telephone [facility] [address] [place] [address] Santi Angelo MD [address] OF [facility] [place] [address] Social History Tobacco Use Types Packs/Day Years Used Date Smoking Tobacco: Former Cigarettes 1.5 45 Smokeless Tobacco: Former Chew Alcohol Use Standard Drinks/Week Comments Not Currently 0 (1 standard drink = 0.6 oz pur e alcohol) 20yrs ago Sex and Gender Information Value Date Recorded Sex Assigned at Not on file 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
--- OUTSIDE RECORDS SUMMARY | 2024-11-23 08:49 | XMS_ITS | Encounter Summary ---
Author Organization [facility] Healthcare Address [address] [place] [address] Care Team Providers Care Radiology Rn Name Role Phone Santi Roy MD Primary Care Provider Itz Boyd MD Unavailable [phone] Joe Arce MD Unavailable Encounter Details Date Type Department Care Team (Late st Contact Info) Description 04/02/2024 Orders Only [facility] Information Management [address] [place] [address] Scanning, Provider Social History Tobacco Use Types Packs/Day Years Used Date Smoking Tobacco: Former Cigarettes 0.1 50 0 02/23/1942 - 02/24/1992 Smokeless Tobacco: Former Alcohol Use Standard Drinks/Week Comments Not Currently 0 (1 standard drink = 0.6 oz pur e alcohol) [facility] Utilities Answer Date Recorded In the past 12 months has [employer], gas, oil, or water company threatened to [...] often do you attend chur ch or orthodox services? Never 03/01/2024 Do you belong to any clubs o r organizations such as orthodox groups, unions, fraternal or athletic groups, or [...] any time in the past 12 m [facility], were you homeless or living in a senior care (including now)? No 03/01/2024 Personal Safety Answer Date Recorded Have you ever been in or are you currently in a harmful physical or emotional relationship or is someone making you feel afraid or unsafe? 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
--- OUTSIDE RECORDS SUMMARY | 2024-11-23 08:49 | XMS_ITS | Encounter Summary ---
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
--- OUTSIDE RECORDS SUMMARY | 2024-11-23 08:49 | XMS_ITS | Clinical Summary ---
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 Never 03/01/2024 Do you belong to any clubs o r organizations such as jehovah's witness groups, unions, fraternal or athletic groups, or [...] any time in the past 12 m [facility], were you homeless or living in a fci (including now)? No 03/01/2024 Personal Safety Answer Date Recorded Have you ever been in or are you currently in a harmful physical or emotional relationship or is someone making you feel afraid or unsafe? 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 Gender Identity Not on file Sexual Orientation Not on file Obstetrics History Last Filed Vital Signs Vital Sign Reading Time Taken Comments Blood Pressure 130/56 07/13/2024 10:21 AM CDT Pulse 78 07/13/2024 10:21 AM CDT Temperature 36.6 C (97.9 F) 03/02/2024 12:30 PM COMMERCIAL FOOD INSTRUCTOR Respiratory Rate 18 03/02/2024 12:30 PM COMMERCIAL FOOD INSTRUCTOR Oxygen Saturation 95% 07/13/2024 10:21 AM CDT [...] Completed 08/12/2022 Medical Devices Implanted Type Area Commercial Litigation Associate Device Identifier Shelf Expiration Date Model / Serial / Lot Total Joint Bilateral: Knee Total Right: Shoulder [employer] Embosafe 15.5fr 24cm Basic 2 Lumen Kit Catheter [id number] - [id number] Implanted:Qty: 1 on 08/04/2023 by Harvinder Fernando MD at [facility] [employer] 06/06/2025 [id number] / / [id number] Procedures Procedure Name Priority Date/Time Associated Diagnosis Comments EGFR Routine 03/02/2024 2:55 AM COMMERCIAL FOOD INSTRUCTOR HEMOGLOBIN A1C Routine 04/12/2019 4:10 AM COMMERCIAL FOOD INSTRUCTOR LIPID PANEL STAT 04/12/2019 3:41 AM COMMERCIAL FOOD INSTRUCTOR from Last 3 Months or Most Recently Relevant to Health Maintenance Results * (ABNORMAL) eGFR (03/02/2024 2:55 AM COMMERCIAL FOOD INSTRUCTOR) eGFR 19(L) >=60 mL/min/1. 73 m2 Comment: [...] last reviewed 2020. Blood 03/02/2024 2:55 AM COMMERCIAL FOOD INSTRUCTOR 03/02/2024 3:39 AM COMMERCIAL FOOD INSTRUCTOR us Jenaro Le MD LAB BLOOD ORDERABLES Final Res ult [facility] [address] [address] Department [place] [address] * (ABNORMAL) Hemoglobin A1c (04/12/2019 4:10 AM COMMERCIAL FOOD INSTRUCTOR) Hgb A1C 7.1(H) 4.0 - 5.6 % [facility] Estimated Average Glucose 157 mg/dL [facility] Comment: The ADA recommends reporting an estimated Average Glucose (eAG) with all Hemoglobin A1c results using the equation derived from a study of 507 normal and diabetic adults. Minority populations were underrepresented and children were not included. (Diabetes Care 31:8893-3193, 2008). The eAG is not equivalent to a fasting glucose. Blood specimen (specimen) 04/12/2019 4:10 AM COMMERCIAL FOOD INSTRUCTOR 04/12/2019 6:03 AM COMMERCIAL FOOD INSTRUCTOR David VOSS LAB BLOOD ORDERABLES Final Result Performing Organization Address City/[facility]/ZIP Co de Phone Number [facility] Department [place] [address] * (ABNORMAL) Lipid panel (04/12/2019 3:41 AM COMMERCIAL FOOD INSTRUCTOR) Cholesterol 78 30 - 199 mg/dL [facility] Comment: Interpretive Data Ages < or = [...] revised on 2017. Triglycerides 61 <=149 mg/dL [facility] Comment: Interpretive Data Ages < or [...] revised on 2017. HDL 29(L) >=40 mg/dL [facility] Comment: Interpretive Data Ages < or = [...] on 2017. LDL, calculated 37 <=129 mg/dL [facility] Comment: Interpretive Data Ages < or = [...] revised on 2017. Non-HDL Cholesterol 49 mg/dL [facility] Comment: Interpretive Data Ages < or = [...] revised on 2017. Chol/HDL ratio 3 [facility] Blood specimen (specimen) 04/12/2019 3:41 AM COMMERCIAL FOOD INSTRUCTOR 04/12/2019 5:47 AM COMMERCIAL FOOD INSTRUCTOR us Yvonne Matthew MD LAB BLOOD ORDERABLES F inal Result [facility] Department [place] [address] from Last 3 Months or Most Recently Relevant to Health Maintenance Insurance [address] [id number] [facility] MEDICARE [employer] MEDICARE [facility] MEDICARE ADVANTAGE [facility] MEDICARE ADVANTAGE Advance Directives For more information, please contact: [phone] * Full Code (Latest Code Status on File) Date Activated Date Inactivated Comments 02/29/2024 8:34 PM 03/02/2024 7:26 PM * Full Code Date Activated Date Inactivated Comments 04/12/2019 3:29 AM 04/20/2019 6:41 PM Care Teams Kitchen Cleaner Relationship Specialty Start Date End Date Santi Roy MD [address] [place] [address] PCP - General Family Medicine 02/23/19 Itz Boyd MD [address] [facility] 1 [place] [address] Consulting Physician Nephrology 07/26/23 Joe Arce MD [address] [place] [address] Consulting Physician Cardiology 03/02/24
--- OUTSIDE RECORDS SUMMARY | 2024-11-23 08:49 | XMS_ITS | Encounter Summary ---
Author Organization [facility] Address [address] [place] [address] Care Team Providers Care Economic Research Analyst Name Role Phone Santi Roy MD Primary Care Provider [phone] Encounter Details Date Type Department Care Team (Late st Contact Info) Description 03/13/2021 Telephone [facility] [address] [place] [address] Santi Angelo MD [address] OF [facility] [id number] Social History Tobacco Use Types Packs/Day Years Used Date Smoking Tobacco: Former Cigarettes 1.5 45 1 944 - 1989 Smokeless Tobacco: Former Chew Alcohol Use Standard Drinks/Week Comments Not Currently 0 (1 standard drink = 0.6 oz pur e alcohol) 20yrs ago Sex and Gender Information Value Date Recorded Sex Assigned at Not on file Legal 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 No / Unsure 02/20/2021 12:39 PM GIMP BUTTONHOLE MACHINE OPERATOR documented as of this encounter Plan of Treatment Not on file documented as of this encounter Visit Diagnoses Not on filedocumented in this encounter Care Teams Economic Research Analyst Relationship Specialty Start Date End Date Santi Roy MD [address] [place] [address] PCP - General 12/18/19 documented as of this encounter
--- OUTSIDE RECORDS SUMMARY | 2024-11-23 08:49 | XMS_ITS | Encounter Summary ---
Author Organization [facility] Healthcare Address [address] [place] [address] Care Team Providers Care Radio Electronics Officer Name Role Phone Santi Roy MD Primary Care Provider Itz Boyd MD Unavailable [phone] Joe Arce MD Unavailable Encounter Details Date Type Department Care Team (Late st Contact Info) Description 02/28/2024 Orders Only [facility] Health Information Management [address] [place] [address] Scanning, Provider Social History Tobacco Use Types Packs/Day Years Used Date Smoking Tobacco: Former Cigarettes 0.1 50 0 02/23/1942 - 02/24/1992 Smokeless Tobacco: Former Alcohol Use Standard Drinks/Week Comments Not Currently 0 (1 standard drink = 0.6 oz pur e alcohol) [facility] Utilities Answer Date Recorded In the past 12 months has [employer], gas, oil, or water company threatened to [...] often do you attend chur ch or pentecostal services? Never 03/01/2024 Do you belong to [...] any time in the past 12 m [facility], were you homeless or living in a longterm (including now)? No 03/01/2024 Personal Safety Answer Date Recorded Have you ever been in or are you currently in a harmful physical or emotional relationship or is someone making you feel afraid or unsafe? 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
--- OUTSIDE RECORDS SUMMARY | 2024-11-23 08:49 | XMS_ITS | Encounter Summary ---
Author Organization [facility] Address [address] [place] [address] Care Team Providers Care Mini Bar Attendant Name Role Phone Santi Roy MD Primary Care Provider [phone] Encounter Details Date Type Department Care Team (Late st Contact Info) Description 03/04/2021 Telephone [facility] [address] [place] [address] Santi Angelo MD [address] [place] [phone] Social History Tobacco Use Types Packs/Day Years Used Date Smoking Tobacco: Former Cigarettes 1.5 45 1 944 - 1989 Smokeless Tobacco: Former Chew Alcohol Use Standard Drinks/Week Comments Not Currently 0 (1 standard drink = 0.6 oz pur e alcohol) 20yrs ago Sex and Gender Information Value Date Recorded Sex Assigned at Not on file Legal 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 No / Unsure 02/20/2021 12:39 PM CNC OPERATOR MACHINIST documented as of this encounter Plan of Treatment Not on file documented as of this encounter Visit Diagnoses Not on filedocumented in this encounter Care Teams Mini Bar Attendant Relationship Specialty Start Date End Date Santi Roy MD [address] [place] [address] PCP - General 12/18/19 documented as of this encounter
--- OUTSIDE RECORDS SUMMARY | 2024-11-23 08:49 | XMS_ITS | Encounter Summary ---
Author Organization [facility] Address [address] [facility] [address] Care Team Providers Care Wine Sales Representative Name Role Phone Santi Roy MD Primary Care Provider [phone] Encounter Details Date Type Department Care Team (Late st Contact Info) Description 03/17/2021 Telephone [facility] [address] [place] [address] Santi Angelo MD [address] OF [facility] [place] [phone] Social History Tobacco Use Types Packs/Day Years Used Date Smoking Tobacco: Former Cigarettes 1.5 45 1 944 - 1989 Smokeless Tobacco: Former Chew Alcohol Use Standard Drinks/Week Comments Not Currently 0 (1 standard drink = 0.6 oz pur e alcohol) 20yrs ago Sex and Gender Information Value Date Recorded Sex Assigned at Not on file Legal Sex Male 3:10 PM ALUMINUM SIDING INSTALLER Gender Identity Not on file Sexual Orientation Not on file COVID-19 Exposure Response Date Recorded In the last month, have you been in contact with someone who was confirmed or suspected to have Coronavirus / COVID-19? No / Unsure 02/20/2021 12:39 PM ALUMINUM SIDING INSTALLER documented as of this encounter Plan of Treatment Not on file documented as of this encounter Visit Diagnoses Not on filedocumented in this encounter Care Teams Wine Sales Representative Relationship Specialty Start Date End Date Santi Roy MD [address] [place] [address] PCP - General 12/18/19 documented as of this encounter
--- OUTSIDE RECORDS SUMMARY | 2024-11-23 08:49 | XMS_ITS | Encounter Summary ---
Author Organization [facility] Healthcare Address [address] [place] [address] Care Team Providers Care Business Dean Name Role Phone Santi Roy MD Primary Care Provider Itz Boyd MD Unavailable [phone] Joe Arce MD Unavailable Encounter Details Date Type Department Care Team (Late st Contact Info) Description 03/05/2024 [facility] Post Discharge Follow up phone call [address] [address] Jana Sebastian, PAKO Social History Tobacco Use Types Packs/Day Years Used Date Smoking Tobacco: Former Cigarettes 0.1 50 0 [birth year]/23/1942 - 02/24/1992 Smokeless Tobacco: Former Alcohol Use Standard Drinks/Week Comments Not Currently 0 (1 standard drink = 0.6 oz pur e alcohol) [facility] Utilities Answer Date Recorded In the past 12 months has [employer], gas, oil, or water company threatened to [...] often do you attend chur ch or worship services? Never 03/01/2024 Do you belong to [...] any time in the past 12 m [facility], were you homeless or living in a correction (including now)? No 03/01/2024 Personal Safety Answer Date Recorded Have you ever been in or are you currently in a harmful physical or emotional relationship or is someone making you feel afraid or unsafe? 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 Gender Identity Not on file Sexual Orientation Not on file documented as of this encounter Plan of Treatment Not on file documented as of this encounter Visit Diagnoses Not on filedocumented in this encounter Care Teams Business Dean Relationship Specialty Start Date End Date Santi Roy MD [address] [place] [address] PCP - General Family Medicine 02/23/19 Itz Boyd MD [address] [facility] 1 [place] [address] Consulting Physician Nephrology 07/26/23 Joe Arce MD [address] [place] [address] Consulting Physician Cardiology 03/02/24 documented as of this encounter
--- OUTSIDE RECORDS SUMMARY | 2024-11-23 08:49 | XMS_ITS | Encounter Summary ---
Author Organization [facility] Healthcare Address [address] [place] [address] Care Team Providers Care Engineering Production Liaison Name Role Phone Santi Roy MD Primary Care Provider Itz Boyd MD Unavailable [phone] Joe Arce MD Unavailable Encounter Details Date Type Department Care Team (Late st Contact Info) Description 07/28/2023 Telephone [facility] [address] [place] [address] Harvinder Fernando MD [address] [facility] [address] [place] [address] Social History Tobacco Use Types [...] on file 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 Gender Identity Not on file Sexual Orientation [...] on filedocumented in this encounter Care Teams Engineering Production Liaison Relationship Specialty Start Date End Date Santi Roy MD [address] [facility] [address] [facility] 120 [place] [address] PCP - General Family Medicine 02/23/19 Itz Boyd MD [address] [facility] 1 [place] [address] Consulting Physician Nephrology 07/26/23 Joe Arce MD [address] [facility] [address] [place] [address] Consulting Physician Cardiology 03/02/24 documented as of this encounter
--- NOTE | 2024-11-23 10:03 | PM.CNCAR ---
Assessment and Plan Assessment and plan (1) Atrial fibrillation with RVR: Code(s): I48.91 - Unspecified atrial fibrillation Status: Acute Assessment and Plan: 84-year-old male with atrial fibrillation, history of multiple DC cardioversions, recently on 04/02/24 (on anticoagulation with apixaban), hypertension, diabetes mellitus on insulin, CKD on hemodialysis, chronic anemia. Patient presented with palpitations, found to be in recurrent AFib with RVR. On telemetry, he remains in AFib with RVR. After discussion with the patient, patient wants DC cardioversion for symptomatic atrial fibrillation with RVR. He reports uninterrupted compliance with anticoagulation with apixaban. Will plan on DC cardioversion later today after patient has been NPO. Continue anticoagulation with apixaban. Continue metoprolol succinate. Will add amiodarone that may help maintain sinus rhythm. (2) CHF (congestive heart failure): Qualifiers: Heart failure chronicity: unspecified Heart failure type: unspecified Qualified Code(s): I50.9 - Heart failure, unspecified Code(s): I50.9 - Heart failure, unspecified Status: Acute Assessment and Plan: Patient with acute on chronic CHF with mildly reduced ejection fraction in the setting of AFib with RVR. Recent LVEF reported to be 50% on RODNEY. Fluid management with hemodialysis. Optimal blood pressure control. Follow-up with Dr. Charles after hospital discharge. History of Present Illness History of Present Illness Consult date/time: 11/23/24 10:03 Requesting physician: Brent Soliman III, DO Reason For Visit: a fib with rvr Narrative: DATE OF CONSULT: 11/23/2024 REASON FOR CONSULT: AFib with RVR REQUESTING PHYSICIAN: Dr. Soliman CHIEF COMPLAINT: HPI: 84-year-old male with atrial fibrillation, history of multiple DC cardioversions, recently on 04/02/24 (on anticoagulation with apixaban), hypertension, diabetes mellitus on insulin, CKD on hemodialysis, chronic anemia. Patient follows up with Dr. Charles for his cardiovascular care. He presented to [facility] on 11/22/2024 with complaints of palpitations that started 2 days prior to the presentation. No chest pain. At baseline, he has dyspnea on exertion, unable to quantify the distance. His symptoms of dyspnea got worse in last couple of days associated with palpitations. He reports compliance with renal replacement therapy with hemodialysis. EKG on presentation on my personal interpretation showed AFib with RVR, ventricular rate 119 beats per minute. On telemetry, he has been in AFib with RVR. He reports compliance with medications including anticoagulation with apixaban. Review of Systems Review of Systems: General: Positive for fatigue Psychological: Negative for anxiety, depression Ophthalmic: negative for loss of vision ENT: Negative for epistaxis, headaches Allergy and immunology: Negative for hives, nasal congestion Hematologic and lymphatic: Negative for overt bleeding problems Endocrine: Negative for hot flashes, palpitations Respiratory: Negative for cough, hemoptysis Cardiovascular: Negative for chest pain, positive for palpitations, dyspnea and occasional dizziness without syncope Gastrointestinal: Negative for abdominal pain Musculoskeletal: Negative for myalgia, joint pains Neurological: Negative for weakness Dermatological: Negative for rash, skin discoloration PMFSH Past Medical History Medical History Obstructive sleep apnea End-stage renal disease on hemodialysis Insulin dependent diabetes mellitus Paroxysmal atrial fibrillation Hypertension Mitral valve regurgitation [id number] noted on RODNEY February 2020 Thrombus of left atrial appendage Duodenal ulcer disease Iron deficiency anemia Glaucoma Adenomatous colon polyp Chronic obstructive pulmonary disease Hyperlipidemia Primary osteoarthritis, unspecified site Surgical History Surgical History S/P dialysis catheter insertion History of cholecystectomy History of open reduction and internal fixation (ORIF) procedure (1977) repair of left lower extremity fracture History of cataract extraction with lens replacement History of right shoulder replacement (2010) History of bilateral knee replacement (2004) History of esophagogastroduodenoscopy (EGD) (12/2019) History of colonoscopy with polypectomy (12/2019) Family History Family History Mother Diabetes mellitus Heart disease Father Lung cancer Sibling Lung cancer Breast cancer Son , 52 years of age Drug abuse Social History Social History Social History: He is . His only son has passed. His great grandson jessica Reyes list with him and helps to take care from. Surrogate medical decision maker: SCOTT Eric, grandson ([phone]). Code status: Full code. Smoking packs per day: 0 Smoking cigarettes per day: 0.0 Years smoked: 50 Smoking pack-years: 0.00 Smoking status: Former smoker Tobacco type: cigarettes Second hand tobacco smoke exposure: Yes Smoking end date: 02/07/02 Alcohol intake: never Substance use: never Substance use type: does not use Last use: 2000 Do You Feel Safe in your Home?: Yes Lack of Transportation: No Lack of Food: Never True Current Housing: I Have Housing Concerned About Future Housing: No Difficulty Paying Gas/Electric Bills: No Difficulty Paying for Meds: No Currently Unemployed: No Education: High School Diploma/GED Difficulty w/ Childcare or Family Care: No Living arrangements: with family Additional living arrangements comments: Lives in [place]. His grandson whom he helped raised lives with him. Occupation/Education: retired Additional occupation/education comments: [employer] Spiritual care concerns: No Comments He had a total of 5 sisters and 2 brothers. 4 of his sisters have 1 had uterine cancer to had breast cancer and 1 had lung cancer. Both of his brothers are still living but have COPD and heart disease Meds Home Medications and Allergies Home Medications ?Medication ?Instructions ?Recorded ?Confirmed ?Type furosemide 20 mg tablet 20 mg PO BID 04/27/19 11/22/24 History latanoprost 0.005 % eye drops 1 drop ophthalmic (eye) QPM 04/27/19 11/22/24 History alcohol swabs (Alcohol Prep Pads) 1 pad topical TID #100 ea 05/13/22 11/22/24 Rx blood-glucose meter (OneTouch #1 ea 11/22/22 11/22/24 Rx Ultra2 Meter) blood sugar diagnostic (EasyMax #300 ea 04/13/23 11/22/24 Rx strips) pen needle, diabetic 32 gauge x #100 ea 11/07/23 11/22/24 Rx 5/32 (UltiCare Pen Needle) fluticasone fur. 100 mcg-umeclid See Rx Instructions .Route 11/14/23 11/22/24 Rx 62.5 mcg-vilant 25 mcg .COMPLEX #180 ea inhalat.powder (Trelegy Ellipta) apixaban 2.5 mg tablet 2.5 mg PO BID 30 days #60 tabs 04/02/24 11/22/24 Rx metoprolol succinate 50 mg 50 mg PO DAILY #30 tabs 04/02/24 11/22/24 Rx tablet,extended release 24 hr (Toprol XL) clonidine HCl 0.1 mg tablet 0.1 mg PO BID #180 tabs 06/27/24 11/22/24 Rx pantoprazole 40 mg tablet,delayed 40 mg PO BID #180 tabs 06/27/24 11/22/24 Rx release atorvastatin 20 mg tablet 20 mg PO DAILY #90 tabs 06/29/24 11/22/24 Rx amlodipine 5 mg tablet 10 mg PO DAILY 08/06/24 11/22/24 History diltiazem HCl 300 mg 300 mg PO DAILY 08/06/24 11/22/24 History capsule,extended release 24 hr (Cardizem CD) lancets 30 gauge (Easy Touch Twist #300 ea 09/27/24 11/22/24 Rx Lancets) alprazolam 0.5 mg tablet (Xanax) 0.5 mg PO BID PRN anxiety #60 tabs 10/29/24 11/22/24 Rx insulin glargine 100 unit/mL (3 See Rx Instructions .Route 11/19/24 11/22/24 Rx mL) subcutaneous pen (Lantus .COMPLEX #15 mL Solostar U-100 Insulin) hydralazine 25 mg tablet 25 mg PO BID 11/22/24 11/22/24 History Allergies Allergy/AdvReac Type Severity Reaction Status Date / Time No Known Allergies Allergy Verified 11/22/24 20:30 Vital Signs Vital Signs - 24 hr 11/22/24 12:50 11/22/24 14:47 11/22/24 14:47 Temperature 37.1 C 36.6 C Pulse Rate 135 H 114 H 114 H Respiratory Rate 18 20 23 H Blood Pressure 130/55 L 133/85 133/85 Pulse Oximetry 95 96 96 Oxygen Delivery Room Air Room Air 11/22/24 14:49 11/22/24 14:49 11/22/24 16:37 Temperature 36.6 C Pulse Rate 106 H 106 H 120 H Respiratory Rate 20 Blood Pressure 133/85 133/85 Pulse Oximetry 97 Oxygen Delivery 11/22/24 16:40 11/22/24 16:47 11/22/24 17:01 Temperature Pulse Rate 95 98 103 H Respiratory Rate 27 H 16 28 H Blood Pressure 128/113 H 100/59 L 110/97 H Pulse Oximetry 94 97 95 Oxygen Delivery 11/22/24 17:17 11/22/24 19:31 11/22/24 19:56 Temperature Pulse Rate 104 H 96 97 Respiratory Rate 19 21 H 14 Blood Pressure 102/75 119/76 121/78 Pulse Oximetry 95 95 98 Oxygen Delivery 11/22/24 20:00 11/22/24 20:00 11/22/24 20:07 Temperature 36.8 C Pulse Rate 113 H 106 H 124 H Respiratory Rate 22 H Blood Pressure 101/65 Pulse Oximetry 95 Oxygen Delivery 11/22/24 21:00 11/22/24 22:00 11/22/24 22:00 Temperature Pulse Rate 118 H 118 H Respiratory Rate Blood Pressure 120/63 Pulse Oximetry Oxygen Delivery Room Air 11/22/24 22:56 11/23/24 00:00 11/23/24 00:00 Temperature 36.7 C Pulse Rate 111 H 122 H 122 H Respiratory Rate 20 18 Blood Pressure 119/72 119/72 Pulse Oximetry 96 98 Oxygen Delivery Autopap 11/23/24 00:00 11/23/24 00:00 11/23/24 02:00 Temperature Pulse Rate 121 H 109 H Respiratory Rate Blood Pressure 126/74 Pulse Oximetry Oxygen Delivery CPAP 11/23/24 02:00 11/23/24 02:03 11/23/24 04:00 Temperature Pulse Rate 109 H 107 H Respiratory Rate 24 H Blood Pressure Pulse Oximetry 95 Oxygen Delivery Autopap CPAP 11/23/24 04:00 11/23/24 04:00 11/23/24 04:00 Temperature 36.7 C Pulse Rate 108 H 120 H 120 H Respiratory Rate 16 Blood Pressure 103/64 103/64 Pulse Oximetry 94 Oxygen Delivery 11/23/24 05:49 11/23/24 06:00 11/23/24 08:00 Temperature 36.9 C Pulse Rate 122 H 115 H 127 H Respiratory Rate 18 Blood Pressure 126/62 132/79 Pulse Oximetry 93 Oxygen Delivery 11/23/24 08:00 11/23/24 08:00 11/23/24 08:30 Temperature Pulse Rate 132 H 132 H Respiratory Rate 18 Blood Pressure Pulse Oximetry 92 92 Oxygen Delivery Room Air Room Air 11/23/24 08:36 11/23/24 08:40 Temperature Pulse Rate 138 H 124 H Respiratory Rate Blood Pressure 132/79 Pulse Oximetry Oxygen Delivery Exam Narrative: PHYSICAL EXAMINATION: GENERAL: Elderly male, alert, oriented, no acute distress MENTAL STATUS: affect appropriate to mood EYES: Extraocular movements intact, no pallor EARS: External ears appear normal, hearing grossly normal NOSE: Normal and patent, no discharge MOUTH: Mucous membranes moist, tongue normal NECK: Supple, no JVD CHEST: Good respiratory effort, tunneled dialysis catheter in the right subclavicular area HEART: Tachycardia, irregularly irregular rhythm ABDOMEN: Soft, nontender NEUROLOGICAL: Alert, oriented, normal speech, no gross motor deficits MUSCULOSKELETAL: No major deformity, no amputation EXTREMITIES: Trace pedal edema, no clubbing, no cyanosis SKIN: Dry skin, no cyanosis PSYCHIATRIC: Normal mood, appropriate affect Results Labs and Meds 11/23/24 04:02 11/23/24 04:02 Lab results: Cardiac Enzymes 11/22/24 Range/Units 15:07 AST 28 (17-59) U/L Coagulation 11/22/24 Range/Units 15:07 PT Cancelled APTT Cancelled CBC 11/22/24 11/23/24 Range/Units 15:07 04:02 WBC 6.2 7.3 (4.5-10.0) K/mm3 RBC 2.78 L 2.81 L (4.6-6.20) M/mm3 Hgb 9.4 L 9.5 L (14.0-18.0) g/dL Hct 27.3 L 27.9 L (42.0-52.0) % Plt Count 154 156 (150-375) k/mm3 Lymph # (Auto) 0.92 (0.9-3.2) K/mm3 [place] # (Auto) 0.8 H (0.1-0.6) K/mm3 Eos # (Auto) 0.1 (0-0.3) K/mm3 Baso # (Auto) 0.1 (0.0-0.1) K/mm3 Comprehensive Metabolic Panel 11/22/24 11/23/24 Range/Units 15:07 04:02 Sodium 135 L 138 (137-145) mmol/L Potassium 4.1 4.3 (3.4-5.0) mmol/L Chloride 95 L 97 L (98-107) mmol/L Carbon Dioxide 34 H 35 H (22-30) mmol/L BUN 23 H 30 H (9-20) mg/dL Creatinine 2.28 H 2.97 H (0.7-1.3) mg/dL Glucose 187 H 157 H (65-110) mg/dL Calcium 8.7 8.9 (8.4-10.2) mg/dL AST 28 (17-59) U/L ALT 27 (6-50) U/L Alkaline Phosphatase 95 (38-126) U/L Total Protein 7.1 (6.3-8.2) g/dL Albumin 4.0 (3.5-5.1) g/dL Intake and Output 11/22/24 11/23/24 11/23/24 23:59 07:59 15:59 Intake Total 26.9 239.1 240 Output Total 525 Balance 26.9 -285.9 240 Intake: IV 26.9 39.1 dilTIAZem 100 MG/100 ML 100 mg 26.9 39.1 In 100 ml @ 5 MG/HR 5 mls/hr IV CONT .Q20H STA Rx#:[id number] Oral 200 240 Output: Urine 525 Patient Weight 11/23/24 23:59 Weight 109 kg
--- NOTE | 2024-11-23 13:28 | WPDMODSED ---
Moderate Sedation Note-Pt Data Patient Data Allergies Allergy/AdvReac Type Severity Reaction Status Date / Time No Known Allergies Allergy Verified 11/22/24 20:30 Home Medications ?Medication ?Instructions ?Recorded ?Confirmed ?Type furosemide 20 mg tablet 20 mg PO BID 04/27/19 11/22/24 History latanoprost 0.005 % eye drops 1 drop ophthalmic (eye) QPM 04/27/19 11/22/24 History alcohol swabs (Alcohol Prep Pads) 1 pad topical TID #100 ea 05/13/22 11/22/24 Rx blood-glucose meter (OneTouch #1 ea 11/22/22 11/22/24 Rx Ultra2 Meter) blood sugar diagnostic (EasyMax #300 ea 04/13/23 11/22/24 Rx strips) pen needle, diabetic 32 gauge x #100 ea 11/07/23 11/22/24 Rx 5/32 (UltiCare Pen Needle) fluticasone fur. 100 mcg-umeclid See Rx Instructions .Route 11/14/23 11/22/24 Rx 62.5 mcg-vilant 25 mcg .COMPLEX #180 ea inhalat.powder (Trelegy Ellipta) apixaban 2.5 mg tablet 2.5 mg PO BID 30 days #60 tabs 04/02/24 11/22/24 Rx metoprolol succinate 50 mg 50 mg PO DAILY #30 tabs 04/02/24 11/22/24 Rx tablet,extended release 24 hr (Toprol XL) clonidine HCl 0.1 mg tablet 0.1 mg PO BID #180 tabs 06/27/24 11/22/24 Rx pantoprazole 40 mg tablet,delayed 40 mg PO BID #180 tabs 06/27/24 11/22/24 Rx release atorvastatin 20 mg tablet 20 mg PO DAILY #90 tabs 06/29/24 11/22/24 Rx amlodipine 5 mg tablet 10 mg PO DAILY 08/06/24 11/22/24 History diltiazem HCl 300 mg 300 mg PO DAILY 08/06/24 11/22/24 History capsule,extended release 24 hr (Cardizem CD) lancets 30 gauge (Easy Touch Twist #300 ea 09/27/24 11/22/24 Rx Lancets) alprazolam 0.5 mg tablet (Xanax) 0.5 mg PO BID PRN anxiety #60 tabs 10/29/24 11/22/24 Rx insulin glargine 100 unit/mL (3 See Rx Instructions .Route 11/19/24 11/22/24 Rx mL) subcutaneous pen (Lantus .COMPLEX #15 mL Solostar U-100 Insulin) hydralazine 25 mg tablet 25 mg PO BID 11/22/24 11/22/24 History Current Medications: Active Medications Alprazolam (Alprazolam (*Crx) 0.5 Mg Tablet) 0.5 mg PO BID PRN PRN Reason: Anxiety Apixaban (Apixaban 2.5 Mg Tablet) 2.5 mg PO Q12HR [facility] Last Admin: 11/23/24 08:36 Dose: 2.5 mg Atorvastatin Calcium (Atorvastatin 20 Mg Tablet) 20 mg PO DAILY [facility] Last Admin: 11/23/24 08:35 Dose: 20 mg Dextrose (Dextrose 50% 25 Gm/50 Ml Syringe) 12.5 gm IV PUSH PRN PRN; Protocol PRN Reason: Hypoglycemia Dextrose (Dextrose 50% 25 Gm/50 Ml Syringe) 12.5 gm IV PUSH PRN PRN; Protocol PRN Reason: Hypoglycemia Fluticasone/Umeclidinium/Vilanterol (Fluticasone/Umeclidin/Vilanter 100-62.5-25 Mcg Ellipta) 1 puff INHALATION DAILYRT [facility] Last Admin: 11/23/24 08:30 Dose: 1 puff Furosemide (Furosemide 20 Mg Tablet) 20 mg PO BID [facility] Last Admin: 11/23/24 08:35 Dose: 20 mg Glucagon (Glucagon For Inj 1 Mg Vial) 1 mg IM PRN PRN; Protocol PRN Reason: Hypoglycemia Glucagon (Glucagon For Inj 1 Mg Vial) 1 mg IM PRN PRN; Protocol PRN Reason: Hypoglycemia Glucose (Glucose Oral Gel 15 Gm Of Glucse In 37.5 Gm Tube) 15 gm PO PRN PRN; Protocol PRN Reason: Hypoglycemia Glucose (Glucose Oral Gel 15 Gm Of Glucse In 37.5 Gm Tube) 15 gm PO PRN PRN; Protocol PRN Reason: Hypoglycemia Dextrose (Dextrose 5% 1,000 Ml) 1,000 mls @ 100 mls/hr IVPB PRN PRN; Protocol PRN Reason: Hypoglycemia Dextrose (Dextrose 5% 1,000 Ml) 1,000 mls @ 100 mls/hr IVPB PRN PRN; Protocol PRN Reason: Hypoglycemia Albumin Human (Albutein) 50 mls @ 999 mls/hr IVPB Q10M PRN PRN Reason: HYPOTENSION Stop: 12/23/24 11:49 Insulin Aspart (Insulin Aspart (*Bkc) 100 Units/Ml) 2 - 5 units SUB-Q TIDWM FAISAL; Protocol Last Admin: 11/23/24 12:16 Dose: Not Given Insulin Glargine (Insulin Glargine (*Bkc) 100 Units/Ml) 13.6 units SUB-Q HS FAISAL Latanoprost (Latanoprost 0.005% Op Soln 2.5 Ml Btl) 1 drop EACH EYE HS FAISAL Last Admin: 11/22/24 23:41 Dose: 1 drop Metoprolol Tartrate (Metoprolol Tartrate 50 Mg Tab) 50 mg PO Q12HR [facility] Pantoprazole Sodium (Pantoprazole 40 Mg Tablet) 40 mg PO Q12HR [facility] Last Admin: 11/23/24 08:35 Dose: 40 mg Sedation/Anesthesia: No previous sedation/anesthesia problems (including family history). [facility] Past Medical History Medical History Obstructive sleep apnea End-stage renal disease on hemodialysis Insulin dependent diabetes mellitus Paroxysmal atrial fibrillation Hypertension Mitral valve regurgitation [id number] noted on RODNEY February 2020 Thrombus of left atrial appendage Duodenal ulcer disease Iron deficiency anemia Glaucoma Adenomatous colon polyp Chronic obstructive pulmonary disease Hyperlipidemia Primary osteoarthritis, unspecified site Surgical History Surgical History S/P dialysis catheter insertion History of cholecystectomy History of open reduction and internal fixation (ORIF) procedure (1977) repair of left lower extremity fracture History of cataract extraction with lens replacement History of right shoulder replacement (2010) History of bilateral knee replacement (2004) History of esophagogastroduodenoscopy (EGD) (12/2019) History of colonoscopy with polypectomy (12/2019) Family History Family History Mother Diabetes mellitus Heart disease Father Lung cancer Sibling Lung cancer Breast cancer Son , 52 years of age Drug abuse Social History Social History Social History: He is . His only son has passed. His great grandson jessica Reyes list with him and helps to take care from. Surrogate medical decision maker: bessie Lauren ([phone]). Code status: Full code. Smoking packs per day: 0 Smoking cigarettes per day: 0.0 Years smoked: 50 Smoking pack-years: 0.00 Smoking status: Former smoker Tobacco type: cigarettes Second hand tobacco smoke exposure: Yes Smoking end date: 02/07/02 Alcohol intake: never Substance use: never Substance use type: does not use Last use: 1999 Do You Feel Safe in your Home?: Yes Lack of Transportation: No Lack of Food: Never True Current Housing: I Have Housing Concerned About Future Housing: No Difficulty Paying Gas/Electric Bills: No Difficulty Paying for Meds: No Currently Unemployed: No Education: High School Diploma/GED Difficulty w/ Childcare or Family Care: No Living arrangements: with family Additional living arrangements comments: Lives in [place]. His grandson whom he helped raised lives with him. Occupation/Education: retired Additional occupation/education comments: [employer] Spiritual care concerns: No Mod Sed Physical Exam Physical Exam Pre Procedural Exam: Normal: Airway Hours since solid foods: 6 Hours since liquid intake: 6 Mallampati Classification: class III Internal Medicine - PN: Obj Da Vital Signs Vital Signs: Vital Signs - 24 hr 11/22/24 14:47 11/22/24 14:47 11/22/24 14:49 Temperature 36.6 C Pulse Rate 114 H 114 H 106 H Respiratory Rate 20 23 H Blood Pressure 133/85 133/85 Pulse Oximetry 96 96 Oxygen Delivery Room Air 11/22/24 14:49 11/22/24 16:37 11/22/24 16:40 Temperature 36.6 C Pulse Rate 106 H 120 H 95 Respiratory Rate 20 27 H Blood Pressure 133/85 133/85 128/113 H Pulse Oximetry 97 94 Oxygen Delivery 11/22/24 16:47 11/22/24 17:01 11/22/24 17:17 Temperature Pulse Rate 98 103 H 104 H Respiratory Rate 16 28 H 19 Blood Pressure 100/59 L 110/97 H 102/75 Pulse Oximetry 97 95 95 Oxygen Delivery 11/22/24 19:31 11/22/24 19:56 11/22/24 20:00 Temperature 36.8 C Pulse Rate 96 97 113 H Respiratory Rate 21 H 14 22 H Blood Pressure 119/76 121/78 101/65 Pulse Oximetry 95 98 95 Oxygen Delivery 11/22/24 20:00 11/22/24 20:07 11/22/24 21:00 Temperature Pulse Rate 106 H 124 H Respiratory Rate Blood Pressure Pulse Oximetry Oxygen Delivery Room Air 11/22/24 22:00 11/22/24 22:00 11/22/24 22:56 Temperature Pulse Rate 118 H 118 H 111 H Respiratory Rate 20 Blood Pressure 120/63 Pulse Oximetry 96 Oxygen Delivery Autopap 11/23/24 00:00 11/23/24 00:00 11/23/24 00:00 Temperature 36.7 C Pulse Rate 122 H 122 H Respiratory Rate 18 Blood Pressure 119/72 119/72 Pulse Oximetry 98 Oxygen Delivery CPAP 11/23/24 00:00 11/23/24 02:00 11/23/24 02:00 Temperature Pulse Rate 121 H 109 H 109 H Respiratory Rate Blood Pressure 126/74 Pulse Oximetry Oxygen Delivery 11/23/24 02:03 11/23/24 04:00 11/23/24 04:00 Temperature Pulse Rate 107 H 108 H Respiratory Rate 24 H Blood Pressure Pulse Oximetry 95 Oxygen Delivery Autopap CPAP 11/23/24 04:00 11/23/24 04:00 11/23/24 05:49 Temperature 36.7 C Pulse Rate 120 H 120 H 122 H Respiratory Rate 16 Blood Pressure 103/64 103/64 126/62 Pulse Oximetry 94 Oxygen Delivery 11/23/24 06:00 11/23/24 08:00 11/23/24 08:00 Temperature 36.9 C Pulse Rate 115 H 127 H 132 H Respiratory Rate 18 18 Blood Pressure 132/79 Pulse Oximetry 93 92 Oxygen Delivery Room Air 11/23/24 08:00 11/23/24 08:30 11/23/24 08:36 Temperature Pulse Rate 132 H 138 H Respiratory Rate Blood Pressure Pulse Oximetry 92 Oxygen Delivery Room Air 11/23/24 08:40 11/23/24 10:00 11/23/24 10:40 Temperature Pulse Rate 124 H 121 H 129 H Respiratory Rate Blood Pressure 132/79 136/73 Pulse Oximetry Oxygen Delivery 11/23/24 12:00 11/23/24 12:00 11/23/24 12:00 Temperature 36.1 C L Pulse Rate 64 121 H 121 H Respiratory Rate 18 18 Blood Pressure 130/73 Pulse Oximetry 95 95 Oxygen Delivery Room Air 11/23/24 12:20 Temperature Pulse Rate 124 H Respiratory Rate Blood Pressure 130/73 Pulse Oximetry Oxygen Delivery Intake/Output Intake/Output: Intake & Output 11/20/24 11/21/24 11/22/24 11/23/24 23:59 23:59 23:59 23:59 Intake Total 26.9 489.1 Output Total 1075 Balance 26.9 -585.9 Meds/Results Medications: Active Medications Generic Name Dose Route Start Last Admin Trade Name Freq PRN Reason Stop Dose Admin Alprazolam 0.5 mg 11/22/24 23:12 Alprazolam (*Crx) 0.5 Mg Tablet PO BID PRN Anxiety Apixaban 2.5 mg 11/22/24 23:15 11/23/24 08:36 Apixaban 2.5 Mg Tablet PO 2.5 mg Q12HR FAISAL Administration Atorvastatin Calcium 20 mg 11/22/24 23:15 11/23/24 08:35 Atorvastatin 20 Mg Tablet PO 20 mg DAILY [facility]ISAL Administration Dextrose 12.5 gm 11/22/24 23:25 Dextrose 50% 25 Gm/50 Ml Syringe IV PUSH PRN PRN Hypoglycemia Protocol Dextrose 12.5 gm 11/22/24 23:52 Dextrose 50% 25 Gm/50 Ml Syringe IV PUSH PRN PRN Hypoglycemia Protocol Fluticasone/Umeclidinium/Vilanterol 1 puff 11/22/24 23:15 11/23/24 08:30 Fluticasone/Umeclidin/Vilanter 100-62.5-25 Mcg Ellipta INHALATION 1 puff DAILYRT FAISAL Administration Furosemide 20 mg 11/22/24 23:15 11/23/24 08:35 Furosemide 20 Mg Tablet PO 20 mg BID FAISAL Administration Glucagon 1 mg 11/22/24 23:25 Glucagon For Inj 1 Mg Vial IM PRN PRN Hypoglycemia Protocol Glucagon 1 mg 11/22/24 23:52 Glucagon For Inj 1 Mg Vial IM PRN PRN Hypoglycemia Protocol Glucose 15 gm 11/22/24 23:25 Glucose Oral Gel 15 Gm Of Glucse In 37.5 Gm Tube PO PRN PRN Hypoglycemia Protocol Glucose 15 gm 11/22/24 23:52 Glucose Oral Gel 15 Gm Of Glucse In 37.5 Gm Tube PO PRN PRN Hypoglycemia Protocol Dextrose 1,000 mls @ 100 mls/hr 11/22/24 23:25 Dextrose 5% 1,000 Ml IVPB PRN PRN Hypoglycemia Protocol Dextrose 1,000 mls @ 100 mls/hr 11/22/24 23:52 Dextrose 5% 1,000 Ml IVPB PRN PRN Hypoglycemia Protocol Albumin Human 50 mls @ 999 mls/hr 11/23/24 11:50 Albutein IVPB 12/23/24 11:49 Q10M PRN HYPOTENSION Insulin Aspart 2 - 5 units 11/23/24 08:00 11/23/24 12:16 Insulin Aspart (*Bkc) 100 Units/Ml SUB-Q Not Given TIDWM FAISAL Protocol Insulin Glargine 13.6 units 11/23/24 21:00 Insulin Glargine (*Bkc) 100 Units/Ml SUB-Q HS FAISAL Latanoprost 1 drop 11/22/24 23:15 11/22/24 23:41 Latanoprost 0.005% Op Soln 2.5 Ml Btl EACH EYE 1 drop HS FAISAL Administration Metoprolol Tartrate 50 mg 11/23/24 21:00 Metoprolol Tartrate 50 Mg Tab PO Q12HR [facility]ISAL Pantoprazole Sodium 40 mg 11/23/24 09:00 11/23/24 08:35 Pantoprazole 40 Mg Tablet PO 40 mg Q12HR FAISAL Administration Radiology Results: ITS Impressions Chest X-Ray 11/22/24 16:00 IMPRESSION: Mild bilateral basilar atelectasis and groundglass opacity may represent pulmonary congestion. Labs 11/23/24 04:02 11/23/24 04:02 Labs: Laboratory Results - last 24 hr 11/22/24 11/22/24 11/22/24 15:07 21:22 23:22 WBC 6.2 RBC 2.78 L Hgb 9.4 L Hct 27.3 L MCV 98.2 MCH 33.8 MCHC 34.4 RDW 13.0 Plt Count 154 MPV 8.9 Immature Gran % (Auto) 0.3 Neut % (Auto) 69.8 Lymph % (Auto) 14.8 L [place] % (Auto) 12.2 H Eos % (Auto) 2.1 Baso % (Auto) 0.8 Lymph # (Auto) 0.92 [place] # (Auto) 0.8 H Eos # (Auto) 0.1 Baso # (Auto) 0.1 Abs Immat Gran (auto) 0.02 Absolute Neuts (auto) 4.3 Absolute Nucleated RBC 0.000 Nucleated RBC % 0.0 PT Cancelled INR Cancelled APTT Cancelled Sodium 135 L Potassium 4.1 Chloride 95 L Carbon Dioxide 34 H Anion Gap 6 BUN 23 H Creatinine 2.28 H Estim Creat Clear Calc 27 Estimated GFR 28 L Glucose 187 H POC Capillary Glucose 210 H Hemoglobin A1c 5.9 H Calcium 8.7 Total Bilirubin 0.5 AST 28 ALT 27 Alkaline Phosphatase 95 NT-Pro-B Natriuret Pep 11325 H Total Protein 7.1 Albumin 4.0 Nasal MRSA (PCR) 11/22/24 11/23/24 11/23/24 23:40 04:02 07:28 WBC 7.3 RBC 2.81 L Hgb 9.5 L Hct 27.9 L MCV 99.3 MCH 33.8 MCHC 34.1 RDW 13.0 Plt Count 156 MPV 9.8 Immature Gran % (Auto) Neut % (Auto) Lymph % (Auto) [place] % (Auto) Eos % (Auto) Baso % (Auto) Lymph # (Auto) [place] # (Auto) Eos # (Auto) Baso # (Auto) Abs Immat Gran (auto) Absolute Neuts (auto) Absolute Nucleated RBC Nucleated RBC % PT INR APTT Sodium 138 Potassium 4.3 Chloride 97 L Carbon Dioxide 35 H Anion Gap 6 BUN 30 H Creatinine 2.97 H Estim Creat Clear Calc 21 Estimated GFR 20 L Glucose 157 H POC Capillary Glucose 148 H Hemoglobin A1c Calcium 8.9 Total Bilirubin AST ALT Alkaline Phosphatase NT-Pro-B Natriuret Pep Total Protein Albumin Nasal MRSA (PCR) Not detected ASA Classification/Sedation ASA Classification/Sedation ASA Class: II Emergent: No Risks: Risks, benefits and alternatives explained and patient/family accepted plan for sedation. Patient re-evaluated immediately prior to sedation.
--- NOTE | 2024-11-23 13:29 | WPDHPUPDATE1 ---
History and Physical Update Update Date/Time: 11/23/24 13:29 History and Physical has been reviewed, including an updated exam of the patient. There are NO changes in the patient's condition. Risks, benefits, and alternatives have been discussed and questions answered. Patient agrees to proceed with procedure.
--- NOTE | 2024-11-23 13:46 | ECG_ITS ---
Test Date: 2024-11-23 13:53:42 Measurements Intervals Watson Rate: 76 P: 15 UT: 192 QRS: -1 QRSD: 88 T: -1 QT: 394 QTc: 443 Interpretive Statements SINUS RHYTHM EARLY PRECORDIAL R/S TRANSITION CONSIDER INFERIOR INFARCT, AGE INDETERMINATE BASELINE ARTIFACT- I, II, AVR ABNORMAL ECG Compared to ECG 11/22/2024 12:52:39 Atrial fibrillation no longer present Electronically Signed On 11-23-2024 15:10:21 CDT by Michael Mccabe D.O.
--- NOTE | 2024-11-23 13:51 | P.PCNCVR_ITS ---
Cardioversion Cardioversion Date of procedure: 11/23/24 Pre-op diagnosis: AFib with RVR Indications: Symptomatic AFib with RVR Description of procedure: DATE OF PROCEDURE: 11/23/2024 INDICATION FOR PROCEDURE: Symptomatic atrial fibrillation with RVR PROCEDURES PERFORMED: 1. Successful synchronized DC cardioversion with adventist of sinus rhythm 2. Moderate sedation -CPT 48177 SEDATION: Propofol 30 mg IV in 2 divided doses; start time 1341 minutes, stop time 1345 minutes; total [id number] time 4 minutes; Ayden Nguyen RN was trained observer for the moderate sedation. PROCEDURE: Informed consent was taken prior to the procedure. Transcutaneous pads were placed in the right parasternal and left paravertebral positions. After adequate conscious sedation with IV propofol, synchronized DC cardioversion was performed with 200 joules x with adventist of sinus rhythm. Postprocedure EKG showed sinus rhythm. Patient tolerated procedure well without any immediate procedure related complications. RECOMMENDATIONS: 1. Continue anticoagulation with apixaban. 2. Continue metoprolol succinate; add amiodarone. Surveillance for amiodarone drug monitoring as an outpatient. 3. Follow up with [facility] after hospital discharge for longitudinal cardiac care.
[2024-11-23] MEDS: PROPOFOL IV EMULSION 200 MG/20 ML VIAL 30 MG IV PUSH (13:57)
[2024-11-23] MEDS: AMIODARONE HCL 200 MG TABLET PO (17:00)
--- NOTE | 2024-11-23 17:14 | P.DS_ITS ---
DS: Admitting Diagnosis Discharge Date 11/23/2024 Admitting Diagnosis a fib w/ rvr DS: Discharge Diagnosis Discharge Diagnosis (1) Atrial fibrillation with RVR: Code(s): I48.91 - Unspecified atrial fibrillation Status: Acute Assessment and Plan: * the patient stated that he has been cardioverted x2. * the patient stated that he has been taking his metoprolol on diltiazem faithfully. * his hr was noted to be a higher heart rate over the last couple days and he has had palpitations with weakness and dizziness. * he is currently on a Cardizem drip. His heart rate is 90s to lower 100s. * On 04/02/2024 the patient had a RODNEY with cardioversion for atrial fibrillation * Cardiology consult, appreciate further recommendations * continue with apixaban, and metoprolol if blood pressure allows * BP is 126/62 - Hold if map less than 60 (2) CHF (congestive heart failure): Qualifiers: Heart failure chronicity: unspecified Heart failure type: unspecified Qualified Code(s): I50.9 - Heart failure, unspecified Code(s): I50.9 - Heart failure, unspecified Status: Acute Assessment and Plan: * continue with metoprolol if blood pressure allows, continue with for Lasix * dialysis patient * echo on 02/22/2024 was read as following 1. Technically difficult study with limited views. 2. Left ventricular chamber dimension is normal. 3. Left ventricular systolic function is normal, estimated at 65-70%. 4. There is mildly increased left ventricular wall thickness. 5. Left atrial chamber dimension is moderately enlarged. 6. There is mild tricuspid valve regurgitation. * chest x-ray today suggests pulmonary congestion. (3) Hypertension: Code(s): I10 - Essential (primary) hypertension Status: Acute Assessment and Plan: * patient is on a Cardizem drip and his blood pressure is currently 120/60. * continue with metoprolol if blood pressure allows. * Hold amlodipine, hydralazine, and clonidine for tonight as his blood pressure soft. Please re-evaluate in the morning. (4) Hyperlipidemia: Code(s): E78.5 - Hyperlipidemia, unspecified Status: Acute Assessment and Plan: * continue with atorvastatin and monitor liver enzymes. (5) CKD (chronic kidney disease) stage 4, GFR 15-29 ml/min: Code(s): N18.4 - Chronic kidney disease, stage 4 (severe) Status: Acute Assessment and Plan: * Dialysis Tuesday//Tuesday * Consult nephrology for further possible dialysis needs (6) SALOME (obstructive sleep apnea): Code(s): G47.33 - Obstructive sleep apnea (adult) (pediatric) Status: Acute Assessment and Plan: * continue with CPAP with home settings. (7) Anxiety: Code(s): F41.9 - Anxiety disorder, unspecified Status: Acute Assessment and Plan: * p.r.n. alprazolam as home dose (8) Type 2 diabetes mellitus with hyperglycemia, with long-term current use of insulin: Code(s): E11.65 - Type 2 diabetes mellitus with hyperglycemia; Z79.4 - director long term care (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 of insulin Status: Acute Assessment and Plan: * pharmacy to adjust his long-acting insulin. * Accu-Cheks AC and HS with low-dose sliding scale. * diabetic renal diet * A1c 5.9% 11/22/2024 Plan Glaucoma continue with home eye drops. DS: Summary Hospital Course Reason for hospitalization: Palpitations Hospital Course: Per HPI: This is an 84-year-old male patient who has a history of atrial fibrillation. Patient tells me that he has had cardioversion 2 times now. The patient has a history of hemodialysis and the nurses there had noted that his heart rate has been in the 120s. He was told by the dialysis nurse that he needed to go to the emergency room. The patient has been taking his diltiazem and metoprolol faithfully. His great grandson lives with him and is involved in his care. His grandson is also his power of user experience team lead. The patient was found to be in AFib with RVR with a heart rate of 135. The patient was started on a Cardizem drip. The drip brought him down to the upper 90s and lower 100s. Abnormal labs his H&H is 9.4 and 27.3. Sodium was 135 with chloride 95. BUN is 23 creatinine 2.28. His lab blood sugar was 187 and point [place] [address] which is chronically elevated. He is a dialysis patient. Chest x-ray was read as mild bilateral bibasilar atelectasis and ground-glass opacities may represent pulmonary congestion. Cardiology has been consulted. The patient was placed on a Cardizem drip in the emergency room and was admitted to IMU as inpatient status on the date of service of 11/22/2024 Hospital course: Cardiology consulted regarding atrial fibrillation with RVR. The on telemetry, patient brain in a 5 year RVR. He does have history of recurrent AFib with RVR needing DC cardioversion in the past for symptomatic atrial fibrillation. Cardiology discussed with the patient regarding treatment options at this point, patient agrees for DC cardioversion for continued atrial fibrillation with RVR. DC cardioversion was planned for the afternoon and completed through Cardiology. They recommend continue anticoagulation with apixaban and metoprolol succinate. We also recommend adding amiodarone during hospitalization and upon discharge to maintain sinus rhythm. Cardioversion was successful and patient was observed the next several hours and remained in normal sinus rhythm without symptoms. Cardiology continues recommend anticoagulation with apixaban, continuing metoprolol succinate in adding amiodarone 200 mg b.i.d.. Also recommend following up with Cardiology in the outpatient setting for longitudinal cardiac care. Referral has been placed for Dr. Charles with Cardiology for continued cardiac care. Patient is hemodynamically stable with stable vital signs and blood work. Denies any chest pain, shortness a breath, nausea/vomiting, headache/dizziness, abdominal pain, or back pain. Patient is in agreement for discharge at this time. Plan for discharge home with follow-up with PCP and Cardiology. Status at Discharge Functional status at discharge: independent ambulation Overall status at discharge: patient is back to baseline Time Spent with Patient Time attestation: Total time spent providing and/or coordinating discharge services: 35 Exam Const: General: cooperative, healthy appearing, comfortable, no acute distress, well developed, awake, Physically active, average body habitus and well nourished Nutritional Appearance: average body habitus and well nourished Orientation/consciousness: oriented to person, oriented to place, oriented to time and patient oriented x3 Limitations: no limitations HENMT: Head: normal to inspection, No palpable skull fracture present, normocephalic, atraumatic and abrasion Eyes: General: appearance normal, both eyes and all related structures Pupils: Equal, round and reactive pupils present Neck: Neck: normal visual inspection and full ROM Chest: Chest palpation & inspection: normal inspection of the chest Resp: Effort & Inspection: normal respiratory effort Cardio: Palpation: normal PMI Rate: regular rate Rhythm: regular rhythm GI: Inspection: normal to inspection : General: Yes no CVA tenderness Back/Spine/Pelvis: Back: no CVA tenderness Skin: General skin exam: normal color Lesions: no lesions Rashes: no rashes Trauma: no lacerations or abrasions Wounds: no wounds Hair: normal Nails: normal Neuro: General: oriented to person, oriented to place, oriented to time and patient oriented x3 Cranial nerves: Yes Equal, round and reactive pupils present and Yes Normal hearing present Motor exam (neuro): 5/5 motor strength present throughout Sensory Exam: normal sensation Extrem: General: normal to inspection Right upper extremity: normal to inspection and shoulder/upper arm Left upper extremity: normal to inspection and shoulder/upper arm Right lower extremity: normal to inspection Left lower extremity: normal to inspection Other: He has very thin dried skin bilateral lower extremity Psych: Appearance: grossly normal Mental Status: mental status grossly normal Speech and movement: Normal speech and movement present Affect: normal affect Attitude: cooperative Thought process: Normal thought process present Insight: Good insight present (Psych) Judgement: Good judgement present (Psych) DS: Data Data Completed and Pending Labs on day of discharge: Labs from last 24 hours 11/23/24 11/23/24 11/23/24 16:39 11:32 07:28 WBC RBC Hgb Hct MCV MCH MCHC RDW Plt Count MPV PT INR APTT Sodium Potassium Chloride Carbon Dioxide Anion Gap BUN Creatinine Estim Creat Clear Calc Estimated GFR Glucose POC Capillary Glucose 178 H 189 H 148 H Hemoglobin A1c Calcium Nasal MRSA (PCR) 11/23/24 11/22/24 11/22/24 04:02 23:40 23:22 WBC 7.3 RBC 2.81 L Hgb 9.5 L Hct 27.9 L MCV 99.3 MCH 33.8 MCHC 34.1 RDW 13.0 Plt Count 156 MPV 9.8 PT INR APTT Sodium 138 Potassium 4.3 Chloride 97 L Carbon Dioxide 35 H Anion Gap 6 BUN 30 H Creatinine 2.97 H Estim Creat Clear Calc 21 Estimated GFR 20 L Glucose 157 H POC Capillary Glucose Hemoglobin A1c 5.9 H Calcium 8.9 Nasal MRSA (PCR) Not detected 11/22/24 11/22/24 21:22 15:07 WBC RBC Hgb Hct MCV MCH MCHC RDW Plt Count MPV PT Cancelled INR Cancelled APTT Cancelled Sodium Potassium Chloride Carbon Dioxide Anion Gap BUN Creatinine Estim Creat Clear Calc Estimated GFR Glucose POC Capillary Glucose 210 H Hemoglobin A1c Calcium Nasal MRSA (PCR) Discharge Plan Discharge Attending physician on discharge: Joelle Rodriguez Consulting providers: Wilfred Charles; Juan Olmedo Discharging Clinician: Juan Olmedo Anticipated Discharge Date/Time: 11/23/24 17:07 Patient Disposition: Home Activity: as tolerated Diet: heart healthy Discharge Instructions: Discharge disposition: Home Take medications as prescribed. Continue taking Apixaban, metoprolol succinate and Amiodarone 200mg twice daily. Monitor blood pressures Take caution while standing, rising, or moving Change positions slowly taking a break between each position change If you standing feel dizzy sit back down and take a break Encouraged to continue with yearly vaccinations Return to the emergency department if you develop sudden shortness of breath, chest pain, nausea, vomiting, upset stomach or intractable diarrhea Return to the emergency department if you develop fever greater than 101.5 Follow-up with the primary care physician within 1-2 weeks Follow- up with Cardiology in 1-2 weeks Thank you for choosing [facility] for your healthcare needs Patient Instructions: Antibiotic Form, Amiodarone (By mouth), Apixaban (By mouth), A-fib (Atrial Fibrillation) (DC), Cardioversion (DC) Patient Language: Icelandic Stand Alone Forms: General Discharge Information Follow-up/Referrals: Santi Roy MD [Primary Care Provider, Family Practice] Wilfred Charles MD [Physician, Cardiology] Referral Note: Follow up in January as previously scheduled Discharge Medications: New amiodarone [Pacerone] 200 mg Tablet 200 mg PO BID Qty: 60 0RF Continued amlodipine 5 mg tablet 10 mg PO DAILY diltiazem HCl [Cardizem CD] 300 mg capsule,extended release 24hr 300 mg PO DAILY furosemide 20 mg tablet 20 mg PO BID latanoprost 0.005 % drops 1 drop EACH EYE QPM Rx Instructions: install 1 drop in each eye @ bedtime hydralazine 25 mg tablet 25 mg PO BID apixaban 2.5 mg tablet 2.5 mg PO BID 30 Days Qty: 60 11RF metoprolol succinate [Toprol XL] 50 mg tablet extended release 24 hr 50 mg PO DAILY Qty: 30 11RF alcohol swabs [Alcohol Prep Pads] Pads, Medicated 1 pad topical TID Qty: 100 3RF (DME) blood-glucose meter [OneTouch Ultra2 Meter] Misc See Rx Instructions .ROUTE .COMPLEX Qty: 1 0RF Dose Instruction: USE DIRECTED TO TEST 3 TIMES DAILY Rx Instructions: USE DIRECTED TO TEST 3 TIMES DAILY (DME) EasyMax Strip See Rx Instructions .ROUTE .COMPLEX Qty: 300 3RF Dose Instruction: TESTS 3X PER DAY Rx Instructions: TESTS 3X PER DAY (DME) pen needle, diabetic [UltiCare Pen Needle] 32 gauge x 5/32 needle See Rx Instructions .ROUTE .MEDSUPPLY Qty: 100 4RF Rx Instructions: As directed to administer insulin once daily Trelegy Ellipta 100-62.5-25 mcg blister with device See Rx Instructions .ROUTE .COMPLEX Qty: 180 3RF Dose Instruction: USE 1 INHALATION DAILY Rx Instructions: USE 1 INHALATION DAILY. Rinse mouth and spit after each use clonidine HCl 0.1 mg tablet 0.1 mg PO BID Qty: 180 2RF pantoprazole 40 mg tablet,delayed release (DR/EC) 40 mg PO BID Qty: 180 2RF atorvastatin 20 mg tablet 20 mg PO DAILY Qty: 90 2RF (DME) lancets [Easy Touch Twist Lancets] 30 gauge misc See Rx Instructions .Route Qty: 300 3RF Rx Instructions: test tid alprazolam [Xanax] 0.5 mg tablet 0.5 mg PO BID PRN (Reason: anxiety) Qty: 60 0RF insulin glargine [Lantus Solostar U-100 Insulin] 100 unit/mL (3 mL) insulin pen See Rx Instructions .ROUTE .COMPLEX Qty: 15 1RF Dose Instruction: INJECT 10 UNITS UNDER THE SKIN AT BEDTIME Rx Instructions: INJECT 17 UNITS UNDER THE SKIN AT BEDTIME Date of admission: 11/22/24 17:01 Primary Care Provider: Santi Roy Admitting Provider: Joelle Rodriguez Attending physician on admission: Joelle Rodriguez Condition: Stable Quality VTE Prophylaxis VTE prophylaxis: pharmacologic ordered
--- NOTE | 2024-11-23 18:50 | PC.NURSE ---
Reviewed all discharge instructions including medications and next dose due with patient. Verbalizes understanding at this time. IV site removed intact, and secured entrance monitor removed. Patient waiting for ride home. Family member is expected to be here around 8:00pm.
--- OUTSIDE RECORDS SUMMARY | 2024-11-26 09:36 | XMS_ITS | Clinical Summary ---
Author Organization [facility] Address [address] [place] [address] Care Team Providers Care Board Operator Name Role Phone Santi Roy MD Primary Care Provider [phone] Source Comments [facility],non-owned Affiliates and Associated Physician Practices is amultiple site organization consisting of ambulatory clinics and hospital sitesin [place], [place], [place] and [place]. This disclosure is being madepursuant to the Care Everywhere program and may not contain all information available regarding this patient. 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 Gender Identity Not on file Sexual Orientation [...] this topic Medical Devices Implanted Type Area Defensive Fire Control Systems Operator Device Identifier Shelf Expiration Date Model / Serial / Lot Mesh Srg 6x3in Lg Pore Knit Mfl [facility] Rnd Implanted:Qty: 1 on 03/30/2021 by Santi Angelo MD at [facility] Left: Ingu[employer] 11/04/2025 [id number] / / [id number] Mesh Srg 6x3in Lg Pore Knit Mfl Jose Rnd Implanted:Qty: 1 on 03/30/2021 by Santi Angelo MD at [facility] Right: Inguinal [employer] 11/04/2025 [id number] / / [id number] Insurance AETNA AETNA Care Teams Board Operator Relationship Specialty Start Date End Date Santi Roy MD [address] [place] [address] PCP - General 12/18/19
--- OUTSIDE RECORDS SUMMARY | 2024-11-26 09:36 | XMS_ITS | Encounter Summary ---
Author Organization [facility] Address [address] [place] [address] Care Team Providers Care Document Examiner Name Role Phone Santi Roy MD Primary Care Provider Itz Boyd MD Unavailable [phone] Joe Arce MD Unavailable Encounter Details Date Type Department Care Team (Late st Contact Info) Description 03/05/2024 [facility] Post Discharge Follow up phone call [address] [address] Jana Sebastian, PAKO Social History Tobacco Use Types Packs/Day Years Used Date Smoking Tobacco: Former Cigarettes 0.1 50 0 02/23/1942 - 02/24/1992 Smokeless Tobacco: Former Alcohol Use Standard Drinks/Week Comments Not Currently 0 (1 standard drink = 0.6 oz pur e alcohol) [facility] Utilities Answer Date Recorded In the past 12 months has [employer], gas, oil, or water company threatened to [...] often do you attend chur ch or rastafarian services? Never 03/01/2024 Do you belong to any clubs o r organizations such as oriental orthodox groups, unions, fraternal or athletic groups, [...] any time in the past 12 m [facility], were you homeless or living in a group home (including now)? No 03/01/2024 Personal Safety Answer Date Recorded Have you ever been in or are you currently in a harmful physical or emotional relationship or is someone making you feel afraid or unsafe? 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 Male 1:08 PM HOSIERY MATER Gender Identity Not on file Sexual Orientation Not on file documented as of this encounter Plan of Treatment Not on file documented as of this encounter Visit Diagnoses Not on filedocumented in this encounter Care Teams Document Examiner Relationship Specialty Start Date End Date Santi Roy MD [address] [place] [address] PCP - General Family Medicine 02/23/19 Itz Boyd MD [address] [facility] [address] [place] [address] Consulting Physician Nephrology 07/26/23 Joe Arce MD [address] [place] [address] Consulting Physician Cardiology 03/02/24 documented as of this encounter
--- OUTSIDE RECORDS SUMMARY | 2024-11-26 09:36 | XMS_ITS | Clinical Summary ---
Author Organization [facility] [address] Address [address] [place] [address] Care Team Providers Care Flight Engineer Inspector Name Role Phone Santi Roy MD Primary Care Provider Itz Boyd MD Unavailable [phone] Joe Arce MD Unavailable Allergies No known [...] unsure he will make it to his outpatient coding specialist prior to his routine appointment already scheduled [...] (04/13/2019): Added automatically from request for surgery [id number] Gastrointestinal hemorrhage associated with casandra ritis 04/11/2019 Overview (04/15/2019): Added automatically from request for surgery [id number] Left carotid bruit 02/23/2019 Bilateral lower extremity [...] 0.6 oz pur e alcohol) [facility] Utilities Answer Date Recorded In the past 12 months has e [employer], gas, oil, or water company threatened to [...] any clubs o r organizations such as samaritan groups, unions, fraternal or athletic groups, or [...] any time in the past 12 m [facility], were you homeless or [...] on file Legal Sex Male 1:08 PM SHELTER ADVOCATE Gender Identity Not on file Sexual Orientation Not on file Obstetrics History Last Filed Vital Signs Vital Sign Reading Time Taken Comments Blood Pressure 130/56 07/13/2024 10:21 AM CDT Pulse 78 07/13/2024 10:21 AM CDT Temperature 36.6 C (97.9 F) 03/02/2024 12:30 PM SHELTER ADVOCATE Respiratory Rate 18 03/02/2024 12:30 PM SHELTER ADVOCATE Oxygen Saturation 95% 07/13/2024 10:21 AM CDT [...] Completed 08/12/2022 Medical Devices Implanted Type Area Training Officer Device Identifier Shelf Expiration Date Model / Serial / Lot Total Joint Bilateral: Knee Total Right: Shoulder [email or web address] Embosafe 15.5fr 24cm Basic 2 Lumen Kit Catheter [id number] - [id number] Implanted:Qty: 1 on 08/04/2023 by Harvinder Fernando MD at [facility] [employer] 06/06/2025 [id number] / / [id number] Procedures Procedure Name Priority Date/Time Associated Diagnosis Comments EGFR Routine 03/02/2024 2:55 AM SHELTER ADVOCATE HEMOGLOBIN A1C Routine 04/12/2019 4:10 AM SHELTER ADVOCATE LIPID PANEL STAT 04/12/2019 3:41 AM SHELTER ADVOCATE from Last 3 Months or Most Recently Relevant to Health Maintenance Results * (ABNORMAL) eGFR (03/02/2024 2:55 AM SHELTER ADVOCATE) eGFR 19(L) >=60 mL/min/1. 73 m2 Comment: [...] last reviewed 2020. Blood 03/02/2024 2:55 AM SHELTER ADVOCATE 03/02/2024 3:39 AM SHELTER ADVOCATE us Jenaro Le MD LAB BLOOD ORDERABLES Final Res ult [facility] [address] [address] Department [place] [address] * (ABNORMAL) Hemoglobin A1c (04/12/2019 4:10 AM SHELTER ADVOCATE) Hgb A1C 7.1(H) 4.0 - 5.6 % [facility] Estimated Average Glucose 157 mg/dL [facility] Comment: The ADA recommends reporting an estimated Average Glucose (eAG) with all Hemoglobin A1c results using the equation derived from a study of 507 normal and diabetic adults. Minority populations were underrepresented and children were not included. (Diabetes Care 31:1400-2508, 2008). The eAG is not equivalent to a fasting glucose. Blood specimen (specimen) 04/12/2019 4:10 AM SHELTER ADVOCATE 04/12/2019 6:03 AM SHELTER ADVOCATE David VOSS LAB BLOOD ORDERABLES Final Result Performing Organization Address City/[facility]/ZIP Co de Phone Number [facility] Department [place] [address] * (ABNORMAL) Lipid panel (04/12/2019 3:41 AM SHELTER ADVOCATE) Cholesterol 78 30 - 199 mg/dL [facility] Comment: Interpretive Data Ages < or [...] revised on 2017. Triglycerides 61 <=149 mg/dL [facility] Comment: Interpretive Data Ages < or = [...] revised on 2017. HDL 29(L) >=40 mg/dL [facility] Comment: Interpretive Data Ages < or = [...] on 2017. LDL, calculated 37 <=129 mg/dL [facility] Comment: Interpretive Data Ages < or = [...] revised on 2017. Non-HDL Cholesterol 49 mg/dL [facility] Comment: Interpretive Data Ages < or = [...] revised on 2017. Chol/HDL ratio 3 [facility] Blood specimen (specimen) 04/12/2019 3:41 AM SHELTER ADVOCATE 04/12/2019 5:47 AM SHELTER ADVOCATE us Yvonne Matthew MD LAB BLOOD ORDERABLES F inal Result [facility] Department [place] [address] from Last 3 Months or Most Recently Relevant to Health Maintenance Insurance [address] [id number] [facility] MEDICARE [employer] MEDICARE [facility] MEDICARE ADVANTAGE [facility] MEDICARE Address: [address] [address] [place] [address] [facility] MEDICARE ADVANTAGE [facility] MEDICARE Address: [address] [address] [place] [address] Advance Directives For more information, please contact: [phone] * Full Code (Latest Code Status on File) Date Activated Date Inactivated Comments 02/29/2024 8:34 PM 03/02/2024 7:26 PM * Full Code Date Activated Date Inactivated Comments 04/12/2019 3:29 AM 04/20/2019 6:41 PM Care Teams Flight Engineer Inspector Relationship Specialty Start Date End Date Santi Roy MD [address] [place] [address] PCP - General Family Medicine 02/23/19 Itz Boyd MD [address] [facility] [address] [place] [address] Consulting Physician Nephrology 07/26/23 Joe Arce MD [address] [place] [address] Consulting Physician Cardiology 03/02/24
--- OUTSIDE RECORDS SUMMARY | 2024-11-26 09:36 | XMS_ITS | Encounter Summary ---
Author Organization [facility] Address [address] [facility] [place] [address] Care Team Providers Care Mouse Breeder Name Role Phone Santi Roy MD Primary Care Provider [phone] Encounter Details Date Type Department Care Team (Late st Contact Info) Description 05/15/2021 Telephone [facility] [address] [place] [address] Santi Angelo MD [address] OF [facility] [place] [address] Social History Tobacco Use Types Packs/Day Years Used Date Smoking Tobacco: Former Cigarettes 1.5 45 1 944 - 1989 Smokeless Tobacco: Former Chew Alcohol Use Standard Drinks/Week Comments Not Currently 0 (1 standard drink = 0.6 oz pur e alcohol) 20yrs ago Sex and Gender Information Value Date Recorded Sex Assigned at Not on file Legal Sex Male 3:10 PM PULLEY MAN Gender Identity Not on file Sexual Orientation Not on file documented as of this encounter Functional Status documented as of this encounter Plan of Treatment Not on file documented as of this encounter Visit Diagnoses Not on filedocumented in this encounter Care Teams Mouse Breeder Relationship Specialty Start Date End Date Santi Roy MD [address] [place] [address] PCP - General 12/18/19 documented as of this encounter
--- OUTSIDE RECORDS SUMMARY | 2024-11-26 09:36 | XMS_ITS | Encounter Summary ---
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 1 [place] [address] Consulting Physician Nephrology 07/26/23 Joe Arce MD [address] [facility] [address] [place] [address] Consulting Physician Cardiology 03/02/24 documented as of this encounter
--- OUTSIDE RECORDS SUMMARY | 2024-11-26 09:36 | XMS_ITS | Encounter Summary ---
Author Organization [facility] Address [address] [facility] [place] [address] Care Team Providers Care Construction Laborer Name Role Phone Santi Roy MD Primary Care Provider [phone] Encounter Details Date Type Department Care Team (Late st Contact Info) Description 03/17/2021 Telephone [facility] [address] [place] [address] Santi Angelo MD [address] OF 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 No / Unsure 02/20/2021 12:39 PM OPERATOR documented as of this encounter Plan of Treatment Not on file documented as of this encounter Visit Diagnoses Not on filedocumented in this encounter Care Teams Construction Laborer Relationship Specialty Start Date End Date Santi Roy MD [address] [place] [address] PCP - General 12/18/19 documented as of this encounter
--- OUTSIDE RECORDS SUMMARY | 2024-11-26 09:36 | XMS_ITS | Clinical Summary ---
Author Organization [facility] Address [address] [place] [phone] Phone Care Team Providers Care Welfare Analyst Name Role Phone Unavailable Primary Care Provider [...]
--- OUTSIDE RECORDS SUMMARY | 2024-11-26 09:37 | XMS_ITS | Encounter Summary ---
Author Organization [facility] Address [address] [facility] [place] [address] Care Team Providers Care Partner Integration Planner Name Role Phone Santi Roy MD Primary Care Provider [phone] Encounter Details Date Type Department Care Team (Late st Contact Info) Description 04/23/2021 Telephone [facility] [address] [place] [address] Santi Angelo MD [address] OF [facility] [place] [address] Social History Tobacco Use Types Packs/Day Years Used Date Smoking Tobacco: Former Cigarettes 1.5 45 1 944 - 1989 Smokeless Tobacco: Former Chew Alcohol Use Standard Drinks/Week Comments Not Currently 0 (1 standard drink = 0.6 oz pur e alcohol) 20yrs ago Sex and Gender Information Value Date Recorded Sex Assigned at Not on file 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
--- OUTSIDE RECORDS SUMMARY | 2024-11-26 09:37 | XMS_ITS | Encounter Summary ---
Author Organization [facility] Address [address] [facility] [place] [address] Care Team Providers Care Commercial Interior Designer Name Role Phone Santi Roy MD Primary Care Provider [phone] Encounter Details Date Type Department Care Team (Late st Contact Info) Description 03/04/2021 Telephone [facility] [address] [place] [address] Santi Angelo MD [address] [place] [phone] Social History Tobacco Use Types Packs/Day Years Used Date Smoking Tobacco: Former Cigarettes 1.5 45 1 944 - 1989 Smokeless Tobacco: Former Chew Alcohol Use Standard Drinks/Week Comments Not Currently 0 (1 standard drink = 0.6 oz pur e alcohol) 20yrs ago Sex and Gender Information Value Date Recorded Sex Assigned at Not on file 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 No / Unsure 02/20/2021 12:39 PM LIFE INSURANCE SPECIALIST documented as of this encounter Plan of Treatment Not on file documented as of this encounter Visit Diagnoses Not on filedocumented in this encounter Care Teams Commercial Interior Designer Relationship Specialty Start Date End Date Santi Roy MD [address] [place] [address] PCP - General 12/18/19 documented as of this encounter
--- OUTSIDE RECORDS SUMMARY | 2024-11-26 09:37 | XMS_ITS | Encounter Summary ---
Author Organization [facility] Healthcare Address [address] [place] [address] Care Team Providers Care Slitting Machine Operator Name Role Phone Santi Roy MD Primary Care Provider Itz Boyd MD Unavailable [phone] Joe Arce MD Unavailable Encounter Details Date Type Department Care Team (Late st Contact Info) Description 02/28/2024 Orders Only [facility] Information [facility] [address] [place] [id number] Scanning, Provider Social History Tobacco Use Types Packs/Day Years Used Date Smoking Tobacco: Former Cigarettes 0.1 50 0 02/23/1942 - 02/24/1992 Smokeless Tobacco: Former Alcohol Use Standard Drinks/Week Comments Not Currently 0 (1 standard drink = 0.6 oz pur e alcohol) [facility] Utilities Answer Date Recorded In the past 12 months has [employer], gas, oil, or water company threatened to [...] often do you attend chur ch or cheondoism services? Never 03/01/2024 Do you belong to any clubs o r organizations such as yarsanism groups, unions, fraternal or athletic groups, or [...] any time in the past 12 m [facility], were you homeless or living in a detention (including now)? No 03/01/2024 Personal Safety Answer Date Recorded Have you ever been in or are you currently in a harmful physical or emotional relationship or is someone making you feel afraid or unsafe? 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
--- OUTSIDE RECORDS SUMMARY | 2024-11-26 09:37 | XMS_ITS | Encounter Summary ---
Author Organization [facility] Address [address] [place] [address] Care Team Providers Care Coal Miner Name Role Phone Santi Roy MD Primary Care Provider [phone] Encounter Details Date Type Department Care Team (Late st Contact Info) Description 10/28/2020 Telephone [facility] [address] [place] [address] Santi Angelo MD [address] OF [facility] [place] [address] Social History Tobacco Use Types Packs/Day Years Used Date Smoking Tobacco: Former Cigarettes 1.5 45 Smokeless Tobacco: Former Chew Alcohol Use Standard Drinks/Week Comments Not Currently 0 (1 standard drink = 0.6 oz pur e alcohol) 20yrs ago Sex and Gender Information Value Date Recorded Sex Assigned at Not on file 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
--- OUTSIDE RECORDS SUMMARY | 2024-11-26 09:37 | XMS_ITS | Encounter Summary ---
Author Organization [facility] Healthcare Address [address] [place] [address] Care Team Providers Care Project Facilitator Name Role Phone Santi Roy MD Primary Care Provider Itz Boyd MD Unavailable [phone] Joe Arce MD Unavailable Encounter Details Date Type Department Care Team (Late st Contact Info) Description 04/02/2024 Orders Only [facility] Information Management [address] [place] [address] Scanning, Provider Social History Tobacco Use Types Packs/Day Years Used Date Smoking Tobacco: Former Cigarettes 0.1 50 0 02/23/1942 - 02/24/1992 Smokeless Tobacco: Former Alcohol Use Standard Drinks/Week Comments Not Currently 0 (1 standard drink = 0.6 oz pur e alcohol) [facility] Utilities Answer Date Recorded In the past 12 months has [employer], gas, oil, or water company threatened to [...] in the past 12 m [facility], were you homeless or living in a alf (including now)? No 03/01/2024 Personal Safety Answer Date Recorded Have you ever been in or are you currently in a harmful physical or emotional relationship or is someone making you feel afraid or unsafe? 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
--- OUTSIDE RECORDS SUMMARY | 2024-11-26 09:37 | XMS_ITS | Encounter Summary ---
Author Organization [facility] Address [address] [facility] [place] [address] Care Team Providers Care Stand Grinder Name Role Phone Santi Roy MD Primary Care Provider [phone] Encounter Details Date Type Department Care Team (Late st Contact Info) Description 03/13/2021 Telephone [facility] [address] [place] [address] Santi Angelo MD [address] OF [facility] [place] [phone] Social History Tobacco Use Types Packs/Day Years Used Date Smoking Tobacco: Former Cigarettes 1.5 45 1 944 - 1989 Smokeless Tobacco: Former Chew Alcohol Use Standard Drinks/Week Comments Not Currently 0 (1 standard drink = 0.6 oz pur e alcohol) 20yrs ago Sex and Gender Information Value Date Recorded Sex Assigned at Not on file Legal Sex Male 3:10 PM 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 No / Unsure 02/20/2021 12:39 PM SOCIAL MEDIA CAMPAIGN MANAGER documented as of this encounter Plan of Treatment Not on file documented as of this encounter Visit Diagnoses Not on filedocumented in this encounter Care Teams Stand Grinder Relationship Specialty Start Date End Date Santi Roy MD [address] [place] [address] PCP - General 12/18/19 documented as of this encounter
--- OUTSIDE RECORDS SUMMARY | 2024-11-26 09:37 | XMS_ITS | Encounter Summary ---
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
--- OUTSIDE RECORDS SUMMARY | 2024-11-26 09:38 | XMS_ITS | Encounter Summary ---
Author Organization [facility] Address [address] [place] [address] Care Team Providers Care Acrylic Fabricator Name Role Phone Santi Roy MD Primary Care Provider [phone] Encounter Details Date Type Department Care Team (Late st Contact Info) Description 09/30/2020 Telephone [facility] [address] [place] [address] Santi Angelo MD [address] OF [facility] [place] [address] Social History Tobacco Use Types Packs/Day Years Used Date Smoking Tobacco: Former Cigarettes 1.5 45 Smokeless Tobacco: Former Chew Alcohol Use Standard Drinks/Week Comments Not Currently 0 (1 standard drink = 0.6 oz pur e alcohol) 20yrs ago Sex and Gender Information Value Date Recorded Sex Assigned at Not on file Legal Sex Male 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
--- OUTSIDE RECORDS SUMMARY | 2024-11-26 09:38 | XMS_ITS | Encounter Summary ---
Author Organization [facility] Address [address] [facility] [place] [address] Care Team Providers Care Cemetery Laborer Name Role Phone Santi Roy MD Primary Care Provider [phone] Encounter Details Date Type Department Care Team (Late st Contact Info) Description 09/29/2020 Telephone [facility] [address] [place] [address] Santi Angelo MD [address] OF [facility] [place] [place] [address] Social History Tobacco Use Types Packs/Day Years Used Date Smoking Tobacco: Former Cigarettes 1.5 45 Smokeless Tobacco: Former Chew Alcohol Use Standard Drinks/Week Comments Not Currently 0 (1 standard drink = 0.6 oz pur e alcohol) 20yrs ago Sex and Gender Information Value Date Recorded Sex Assigned at Not on file Legal 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
== END 2024-11-23 19:55 | disposition home or self-care (01) ==
LOC: ANHED 17:00 → ANHIMU 20:38 → ANH2MED 11-26 08:53
PROVIDERS: Internal Medicine Cardiovascular Disease; Nurse Practitioner; Physician Assistant; Admitting Provider Internal Medicine; Emergency Provider Emergency Medicine; PCP Family Medicine; Visit Provider Internal Medicine
PROC: 5A2204Z Restoration of Cardiac Rhythm, Single (ICD-10-PCS; CPT 99152; principal; 2024-11-23 13:00)
DX: I13.0 Hypertensive heart and chronic kidney disease with heart failure and stage 1 through stage 4 chronic kidney disease, or unspecified chronic kidney disease (principal); I50.9 Heart failure, unspecified; N18.4 Chronic kidney disease, stage 4 (severe); I48.20 Chronic atrial fibrillation, unspecified; Z99.2 Dependence on renal dialysis; I48.0 Paroxysmal atrial fibrillation; E11.65 Type 2 diabetes mellitus with hyperglycemia; Z79.4 Long term (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 of insulin; F41.9 Anxiety disorder, unspecified; J44.9 Chronic obstructive pulmonary disease, unspecified; J98.11 Atelectasis; R91.8 Other nonspecific abnormal finding of lung field; E78.5 Hyperlipidemia, unspecified; D50.9 Iron deficiency anemia, unspecified; H40.9 Unspecified glaucoma; I34.0 Nonrheumatic mitral (valve) insufficiency; M19.91 Primary osteoarthritis, unspecified site; R60.1 Generalized edema; Z79.01 Long term (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 of anticoagulants; G47.33 Obstructive sleep apnea (adult) (pediatric); Z99.89 Dependence on other enabling machines and devices; Z90.49 Acquired absence of other specified parts of digestive tract; Z96.1 Presence of intraocular lens; Z98.49 Cataract extraction status, unspecified eye; Z96.611 Presence of right artificial shoulder joint; Z96.653 Presence of artificial knee joint, bilateral; Z87.891 Personal history of nicotine dependence; Z87.11 Personal history of peptic ulcer disease; Z86.0101 Personal history of adenomatous and serrated colon polyps; Z86.0100 Personal history of colon polyps, unspecified; Z83.3 Family history of diabetes mellitus; Z80.1 Family history of malignant neoplasm of trachea, bronchus and lung; Z80.3 Family history of malignant neoplasm of breast
CPT/HCPCS: 99152; 36415; 71045; 80048; 80053; 82948; 83036; 83880; 85025; 85027; 87040; 87641; 92960; 93005; 94640; 96365; 99285; A9270; G0378; J0283; J1163; J2704; J7040

== ENCOUNTER 2024-11-27 12:40 | Inpatient (IN) | payer MEDICARE, SELFPAY ==
[2024-11-27] VITALS (22 sets, daily range): BP systolic 93–127; BP diastolic 53–81; PULSE 77–120; RESP 16–35; TEMP 36.5–36.6; O2SAT 92–100; BMI 33.5
--- NOTE | ~2024-11-27 | XR_ITS ---
XR chest 1V portable 11/27/2024 13:43 Indication: Arrhythmia Procedure: AP portable chest Comparison: Comparison to multiple prior studies sequentially, with oldest reviewed study dated 02/20/2014. Findings: Heart size normal. Portacatheter tip in the SVC. Bibasilar atelectasis. No focal pneumonia, edema, significant effusion or pneumothorax. Impression: 1: Bibasilar atelectasis. Reviewed, dictated and finalized at location O. Impression: 1: Bibasilar atelectasis.
--- NOTE | 2024-11-27 12:43 | ECG_ITS ---
Test Date: 2024-11-27 12:52:02 Measurements Intervals [place] Rate: 109 P: 0 WV: 0 QRS: 11 QRSD: 98 T: 9 QT: 352 QTc: 475 Interpretive Statements ATRIAL FIBRILLATION WITH RAPID VENTRICULAR RESPONSE INCOMPLETE RIGHT BUNDLE BRANCH BLOCK CONSIDER INFERIOR INFARCT, AGE INDETERMINATE BASELINE ARTIFACT- I, II, III, AVR, AVL, AVF ABNORMAL ECG Compared to ECG 11/23/2024 13:53:42 Sinus rhythm no longer present Electronically Signed On 11-27-2024 12:54:03 CDT by Michael Mccabe D.O.
[2024-11-27 13:04] LABS: Hematocrit 28.2 % (42.0-52.0); Hemoglobin 9.6 g/dL (14.0-18.0); Immature Granulocyte Percent A 0.5 % (0-0.5); Lymphocytes Absolute Auto 0.86 K/mm3 (0.9-3.2); Mean Corpuscular HGB Conc 34.0 g/dl (32-36); Mean Corpuscular Hemoglobin 33.8 pg (26-34); Mean Corpuscular Volume 99.3 fl (80-100); Nucleated Red Blood Cells Absolute Auto 0.000 K/mm3 (0.0-0.012); Nucleated Red Blood Cells Perc 0.0 % (0.0-0.2); Platelet Count Result 196 k/mm3 (150-375); Red Blood Count 2.84 M/mm3 (4.6-6.20); White Blood Count 9.9 K/mm3 (4.5-10.0)
--- NOTE | 2024-11-27 13:26 | PC.NURSE ---
Pt placed on continuous cardiac and O2 monitoring as soon as he was placed back into a room.
[2024-11-27 13:28] LABS: Alanine Aminotransferase 25 U/L (6-50); Albumin Level 4.0 g/dL (3.5-5.1); Alkaline Phosphatase 109 U/L (38-126); Anion Gap 10 mmol/L (4-12); Aspartate Amino Transferase 28 U/L (17-59); Bilirubin,Total 0.6 mg/dL (0.2-1.3); Blood Urea Nitrogen 19 mg/dL (9-20); Calcium 8.7 mg/dL (8.4-10.2); Carbon Dioxide 31 mmol/L (22-30); Chloride 93 mmol/L (98-107); Estimated CRCL calculation 27 ml/min; Estimated Glomerular Filt Rate 28; Glucose 256 mg/dL (65-110); Potassium 3.9 mmol/L (3.4-5.0); Sodium 134 mmol/L (137-145); Total Protein 7.2 g/dL (6.3-8.2)
--- NOTE | 2024-11-27 13:41 | ED.RECABL ---
HPI - Recheck/Abnormal Lab/Rx General Chief Complaint: Recheck/Abnormal Lab/Rx Stated Complaint: HR in 120s at dialysis, SOB Time Seen by Provider: 11/27/24 13:33 Source: patient and family Mode of arrival: ambulatory Limitations: no limitations History of Present Illness HPI narrative: This is an 84-year-old male with history of ESRD on dialysis, AFib, CHF, diabetes who presents the ED for AFib. Patient states that he went to dialysis today and had a completed but he was found to be in AFib RVR as high as the 120s to 130 so he was sent here for further evaluation. Patient has noted some mild shortness of breath for the past couple days. He states that he was seen in this ER for the same thing last week and was given a new medication but he was unable to fill it until a day or so ago as it was not available at his pharmacy. He started taking it again yesterday. He does not recall what that medication is. Denies chest pain, palpitations. His claim representative is a Dr. Charles. Related Data Home Medications ?Medication ?Instructions ?Recorded ?Confirmed ?Last Taken ?Type furosemide 20 mg tablet 20 mg PO Q12H 04/27/19 11/27/24 11/27/24 History latanoprost 0.005 % eye drops 1 drop ophthalmic (eye) 04/27/19 11/27/24 11/26/24 History amlodipine 5 mg tablet 10 mg PO DAILY 08/06/24 11/27/24 11/27/24 History diltiazem HCl 300 mg 300 mg PO DAILY 08/06/24 11/27/24 11/27/24 History capsule,extended release 24 hr (Cardizem CD) hydralazine 25 mg tablet 25 mg PO Q12H 11/22/24 11/27/24 11/27/24 History apixaban 2.5 mg tablet 2.5 mg PO Q12H 11/27/24 11/27/24 11/27/24 History atorvastatin 20 mg tablet 20 mg PO HS 11/27/24 11/27/24 11/26/24 History clonidine HCl 0.1 mg tablet 0.1 mg PO Q12H 11/27/24 11/27/24 11/27/24 History metoprolol succinate 50 mg 50 mg PO HS 11/27/24 11/27/2425 History tablet,extended release 24 hr (Toprol XL) pantoprazole 40 mg tablet,delayed 40 mg PO Q12H 11/27/24 11/27/24 11/27/24 History release Allergies Allergy/AdvReac Type Severity Reaction Status Date / Time No Known Allergies Allergy Verified 11/27/24 18:34 Review of Systems Review of Systems: Gen.: Denies fevers or chills Eyes: Denies eye pain or visual change ENT: Denies congestion Respiratory: Denies shortness of breath or cough CV: As per HPI GI: Denies abdominal pain nausea, emesis or diarrhea denies burning, urgency, frequency or hematuria Musculoskeletal: Denies back pain or muscle pain Neuro: Denies numbness, tingling, weakness or focal weakness Skin: Denies rash Except as documented, all other systems reviewed and negative [facility] Past Medical History Medical History Obstructive sleep apnea End-stage renal disease on hemodialysis Insulin dependent diabetes mellitus Paroxysmal atrial fibrillation Hypertension Mitral valve regurgitation [id number] noted on RODNEY February 2020 Thrombus of left atrial appendage Duodenal ulcer disease Iron deficiency anemia Glaucoma Adenomatous colon polyp Chronic obstructive pulmonary disease Hyperlipidemia Primary osteoarthritis, unspecified site Surgical History Surgical History S/P dialysis catheter insertion History of cholecystectomy History of open reduction and internal fixation (ORIF) procedure (1977) repair of left lower extremity fracture History of cataract extraction with lens replacement History of right shoulder replacement (2010) History of bilateral knee replacement (2004) History of esophagogastroduodenoscopy (EGD) (12/2019) History of colonoscopy with polypectomy (12/2019) Family History Family History Mother Diabetes mellitus Heart disease Father Lung cancer Sibling Lung cancer Breast cancer Son , 52 years of age Drug abuse Social History Social History Social History: He is . His only son has passed. His great grandson jessica Reyes list with him and helps to take care from. Surrogate medical decision maker: SCOTT Eric, grandson ([phone]). Code status: Full code. Smoking packs per day: 1 Smoking cigarettes per day: 20.0 Years smoked: 50 Smoking pack-years: 50.00 Smoking status: Former smoker Tobacco type: cigarettes Second hand tobacco smoke exposure: Yes Smoking end date: 02/07/02 Alcohol intake: never Substance use: never Substance use type: does not use Last use: 2000 Do You Feel Safe in your Home?: Yes Lack of Transportation: No Lack of Food: Never True Current Housing: I Have Housing Concerned About Future Housing: No Difficulty Paying Gas/Electric Bills: No Difficulty Paying for Meds: No Currently Unemployed: No Education: Grade School Difficulty w/ Childcare or Family Care: No Living arrangements: with family Additional living arrangements comments: Lives in [place]. His grandson whom he helped raised lives with him. Occupation/Education: retired Additional occupation/education comments: [employer] Spiritual care concerns: No Exam Narrative: APPEARANCE: No acute distress, nontoxic, resting in bed EYES: EOMI HEENT: Normocephalic, atraumatic, OMM RESPIRATORY: No respiratory distress Clear to auscultation bilaterally with no rhonchi wheezing or rales. CARDIOVASCULAR: Irregularly irregular without murmurs rubs or gallops. Chest wall: Dialysis catheter in right upper chest ABDOMINAL: Soft, nontender, nondistended, no rebound or guarding MUSCULOSKELETAl: Moves all extremities. No clubbing, cyanosis or edema. NEURO: Awake and alert. Following commands, speech normal, no focal deficits SKIN:: Warm, dry. No rashes lesions or abrasions PSYCHIATRIC: Normal affect/mood, Course Vital Signs Vital signs: Vital Signs Temperature 98 F 11/27/24 12:44 Pulse Rate 95 11/27/24 12:44 Respiratory Rate 16 11/27/24 12:44 Blood Pressure 127/78 11/27/24 12:44 Pulse Oximetry 92 11/27/24 12:44 Oxygen Delivery Room Air 11/27/24 12:44 Temperature 97.9 F 11/27/24 18:35 Pulse Rate 95 11/27/24 18:35 Respiratory Rate 22 H 11/27/24 15:32 Blood Pressure 113/69 11/27/24 18:35 Pulse Oximetry 97 11/27/24 18:35 Oxygen Delivery Room Air 11/27/24 18:12 MDM - Recheck/Abnormal Lab/Rx MDM Narrative Medical decision making narrative: 84-year-old male presenting for AFib. On initial evaluation, patient was acute distress afebrile hemodynamically stable. He was in AFib with a rate in the 120s to 130s. Heart and lungs were otherwise clear. Patient was having some mild dyspnea but was not requiring any supplemental oxygen. Patient was given Cardizem bolus with temporary improvement of heart rate to the 1 teens this did return to the wound so he was given additional bolus of Cardizem and started on drip. His heart rate remained in the 110s so he will require admission for further management. Patient is already on Eliquis. UA had moved anemia with hemoglobin of 9.6. Mild hyponatremia at 1:34 a.m.. Creatinine elevated 2.25 consistent with his ESRD. Hyperglycemic to 256. Initial troponin negative. Repeat troponin negative. I discussed the case with Dr. Cuenca, will see the patient as consult. Discussed case with hospitalist will admit the patient. CRITICAL CARE Indication: Afib with RVR Time type: intermittent I provided a total of 35 minutes of critical care excluding separately billable procedures. This includes time w/ EMS, initial bedside evaluation, reviewing old records, review of testing done while under my care, discussion w/ the family, nurses, workforce consultant and guiding the patient?s care while in the emergency department. Differential Diagnosis Differential diagnosis: Likely other (AFib, ACS, CHF exacerbation, electrolyte abnormality, pneumonia) Medical Records Attestation: I reviewed the patient's medical records. Medical records narrative: Patient was cardioverted on 11/23/[address] Cuenca. Lab Data Attestation: I reviewed the patient's lab results. 11/27/24 12:57 11/27/24 12:57 Labs: Lab Results 11/27/24 Range/Units 12:57 WBC 9.9 (4.5-10.0) K/mm3 RBC 2.84 L (4.6-6.20) M/mm3 Hgb 9.6 L (14.0-18.0) g/dL Hct 28.2 L (42.0-52.0) % MCV 99.3 (80-100) fl MCH 33.8 (26-34) pg MCHC 34.0 (32-36) g/dl RDW 13.2 (11.5-14.5) % Plt Count 196 (150-375) k/mm3 MPV 8.9 (7.4-10.4) fl Immature Gran % (Auto) 0.5 (0-0.5) % Neut % (Auto) 81.6 H (45.5-73.1) % Lymph % (Auto) 8.7 L (18.3-44.2) % [place] % (Auto) 6.4 (2.6-8.5) % Eos % (Auto) 2.1 (0-4.4) % Baso % (Auto) 0.7 (0.2-1.2) % Lymph # (Auto) 0.86 L (0.9-3.2) K/mm3 [place] # (Auto) 0.6 (0.1-0.6) K/mm3 Eos # (Auto) 0.2 (0-0.3) K/mm3 Baso # (Auto) 0.1 (0.0-0.1) K/mm3 Abs Immat Gran (auto) 0.05 H (0.00-0.031) K/mm3 Absolute Neuts (auto) 8.1 H (1.3-6.7) K/mm3 Absolute Nucleated RBC 0.000 (0.0-0.012) K/mm3 Nucleated RBC % 0.0 (0.0-0.2) % Sodium 134 L (137-145) mmol/L Potassium 3.9 (3.4-5.0) mmol/L Chloride 93 L (98-107) mmol/L Carbon Dioxide 31 H (22-30) mmol/L Anion Gap 10 (4-12) mmol/L BUN 19 D (9-20) mg/dL Creatinine 2.25 H (0.7-1.3) mg/dL Estim Creat Clear Calc 27 ml/min Estimated GFR 28 L (59 - ) Glucose 256 H (65-110) mg/dL Calcium 8.7 (8.4-10.2) mg/dL Total Bilirubin 0.6 (0.2-1.3) mg/dL AST 28 (17-59) U/L ALT 25 (6-50) U/L Alkaline Phosphatase 109 (38-126) U/L Troponin I < 0.012 (0.000-0.034) ng/mL Total Protein 7.2 (6.3-8.2) g/dL Albumin 4.0 (3.5-5.1) g/dL Imaging Data Attestation: I personally reviewed and interpreted this imaging study as follows: Radiologist's impression: Impressions Chest X-Ray 11/27/24 13:57 Impression: 1: Bibasilar atelectasis. ECG Data EKG #1: Attestation: I personally reviewed and interpreted this ECG as follows: ECG completion date: 11/27/24 ECG completion time: 12:52 Interpretation: AFib with RVR rate of 109, normal axis, incomplete right bundle-branch block, no acute ST or T-wave changes Discharge Plan Discharge Clinical Impression: Atrial fibrillation with rapid ventricular response, ESRD (end stage renal disease) on dialysis Patient Disposition: Still a Patient Condition: Stable
[2024-11-27 14:02] LABS: Troponin I < 0.012 ng/mL (0.000-0.034)
[2024-11-27] MEDS: dilTIAZem 100 MG/100 ML 100 MG/100 ML BAG IV CONT (14:31)
[2024-11-27] MEDS: SODIUM CHLORIDE 0.9% IV 1,000 ML 999 ML IV CONT (14:32)
--- OUTSIDE RECORDS SUMMARY | 2024-11-27 15:19 | XMS_ITS | Encounter Summary ---
Author Organization [facility] Address [address] [place] [address] Care Team Providers Care Third Rail Installer Name Role Phone Santi Roy MD Primary Care Provider Encounter Details Date Type Department Care Team (Late st Contact Info) Description 03/13/2021 Telephone [facility] [address] [place] [address] Santi Angelo MD [address] OF [facility] [id number] Social History Tobacco Use Types Packs/Day Years Used Date Smoking Tobacco: Former Cigarettes 1.5 45 1 944 - 1989 Smokeless Tobacco: Former Chew Alcohol Use Standard Drinks/Week Comments Not Currently 0 (1 standard drink = 0.6 oz pur e alcohol) 20yrs ago Sex and Gender Information Value Date Recorded Sex Assigned at Not on file Legal Sex Male 3:10 PM SCRUB TECHNICIAN Gender Identity Not on file Sexual Orientation Not on file COVID-19 Exposure Response Date Recorded In the last month, have you been in contact with someone who was confirmed or suspected to have Coronavirus / COVID-19? No / Unsure 02/20/2021 12:39 PM SCRUB TECHNICIAN documented as of this encounter Plan of Treatment Not on file documented as of this encounter Visit Diagnoses Not on filedocumented in this encounter Care Teams Third Rail Installer Relationship Specialty Start Date End Date Santi Roy MD [address] [place] [address] PCP - General 12/18/19 documented as of this encounter
--- OUTSIDE RECORDS SUMMARY | 2024-11-27 15:19 | XMS_ITS | Encounter Summary ---
Author Organization [facility] Healthcare Address [address] [place] [address] Care Team Providers Care Lamp Wirer Name Role Phone Santi Roy MD Primary Care Provider Itz Boyd MD Unavailable [phone] Joe Arce MD Unavailable Encounter Details Date Type Department Care Team (Late st Contact Info) Description 04/02/2024 Orders Only [facility] Health Information Management [address] [place] [id number] Scanning, Provider Social History Tobacco Use Types Packs/Day Years Used Date Smoking Tobacco: Former Cigarettes 0.1 50 0 02/23/1942 - 02/24/1992 Smokeless Tobacco: Former Alcohol Use Standard Drinks/Week Comments Not Currently 0 (1 standard drink = 0.6 oz pur e alcohol) [facility] Utilities Answer Date Recorded In the past 12 months has [employer], gas, oil, or water company threatened to [...] often do you attend chur ch or muslim services? Never 03/01/2024 Do you belong to [...] any time in the past 12 m [facility], were you homeless or living [...] on file Legal Sex Male 1:08 PM WAXER FLOOR Gender Identity Not on file Sexual Orientation [...] on filedocumented in this encounter Care Teams Lamp Wirer Relationship Specialty Start Date End Date Santi Roy MD [address] [place] [address] PCP - General Family Medicine 02/23/19 Itz Boyd MD [address] [facility] [address] [place] [address] Consulting Physician Nephrology 07/26/23 Joe Arce MD [address] [place] [address] Consulting Physician Cardiology 03/02/24 documented as of this encounter
--- OUTSIDE RECORDS SUMMARY | 2024-11-27 15:19 | XMS_ITS | Clinical Summary ---
Author Organization [facility] Address [address] [place] [address] Care Team Providers Care Home Economics Expert Name Role Phone Santi Roy MD Primary Care Provider [phone] Source Comments [facility],non-owned Affiliates and Associated Physician Practices is amultiple site organization consisting of ambulatory clinics and hospital sitesin [place], [place]. This disclosure is being madepursuant to the Care Everywhere program and may not contain all information available regarding this patient. Last updated 17.[facility] Allergies No known active allergies Medications * [...] on file Legal Sex Male 3:10 PM HEAVY MEDIA OPERATOR Gender Identity Not on file Sexual [...] this topic Medical Devices Implanted Type Area Fork Operator Device Identifier Shelf Expiration Date Model / Serial / Lot Mesh Srg 6x3in Lg Pore Knit Mfl [facility] Rnd Implanted:Qty: 1 on 03/30/2021 by Santi Angelo MD at [facility] Left: Ingu[employer] 11/04/2025 [id number] / / [id number] Mesh Srg 6x3in Lg Pore Knit Mfl Jose Rnd Implanted:Qty: 1 on 03/30/2021 by Santi Angelo MD at [facility] Right: Inguinal [employer] 11/04/2025 [id number] / / [id number] Insurance AETNA AETNA Care Teams Home Economics Expert Relationship Specialty Start Date End Date Santi Roy MD [address] [place] [address] PCP - General 12/18/19
--- OUTSIDE RECORDS SUMMARY | 2024-11-27 15:19 | XMS_ITS | Clinical Summary ---
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 loader prior to his routine appointment already scheduled [...] (04/13/2019): Added automatically from request for surgery [id number] Gastrointestinal hemorrhage associated with casandra ritis 04/11/2019 Overview (04/15/2019): Added automatically from request for surgery [id number] Left carotid bruit 02/23/2019 Bilateral lower extremity [...] Encounters Date Type Department Care Team Description 11/27/2024 Telephone [facility] Medical [facility] Cardiology [address] [place] [address] Wilfred Charles MD Atrial Fibrillation from Last 3 Months Surgical History Surgery [...] drink = 0.6 oz pur e alcohol) [facility] Utilities Answer Date Recorded In the [...] any clubs o r organizations such as religious groups, unions, fraternal or athletic groups, or [...] any time in the past 12 m [facility], were you homeless or living in a halfway (including now)? No 03/01/2024 Personal Safety Answer Date Recorded Have you ever been in or are you currently in a harmful physical or emotional relationship or is someone making you feel afraid or unsafe? 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 Male 1:08 PM VIDEO RECORDER MECHANIC Gender Identity Not on file Sexual Orientation Not on file Obstetrics History Last Filed Vital Signs Vital Sign Reading Time Taken Comments Blood Pressure 130/56 07/13/2024 10:21 AM CDT Pulse 78 07/13/2024 10:21 AM CDT Temperature 36.6 C (97.9 F) 03/02/2024 12:30 PM VIDEO RECORDER MECHANIC Respiratory Rate 18 03/02/2024 12:30 PM VIDEO RECORDER MECHANIC Oxygen Saturation 95% 07/13/2024 10:21 AM CDT [...] Completed 08/12/2022 Medical Devices Implanted Type Area Bakery Chef Device Identifier Shelf Expiration Date Model / Serial / Lot Total Joint Bilateral: Knee Total Right: Shoulder [employer] 15.5fr 24cm Basic 2 Lumen Kit Catheter [id number] - [id number] Implanted:Qty: 1 on 08/04/2023 by Harvinder Fernando MD at [facility] [employer] 06/06/2025 [id number] / / [id number] Procedures Procedure Name Priority Date/Time Associated Diagnosis Comments EGFR Routine 03/02/2024 2:55 AM VIDEO RECORDER MECHANIC HEMOGLOBIN A1C Routine 04/12/2019 4:10 AM VIDEO RECORDER MECHANIC LIPID PANEL STAT 04/12/2019 3:41 AM VIDEO RECORDER MECHANIC from Last 3 Months or Most Recently Relevant to Health Maintenance Results * (ABNORMAL) eGFR (03/02/2024 2:55 AM VIDEO RECORDER MECHANIC) eGFR 19(L) >=60 mL/min/1. 73 m2 Comment: [...] last reviewed 2020. Blood 03/02/2024 2:55 AM VIDEO RECORDER MECHANIC 03/02/2024 3:39 AM VIDEO RECORDER MECHANIC Jenaro Le MD LAB BLOOD ORDERABLES Final Res ult Performing Organization Address [facility] de Phone Number [facility] [address] [facility] [place] [address] * (ABNORMAL) Hemoglobin A1c (04/12/2019 4:10 AM VIDEO RECORDER MECHANIC) Hgb A1C 7.1(H) 4.0 - 5.6 % [facility] Estimated Average Glucose 157 mg/dL [facility] Comment: The ADA recommends reporting an estimated Average Glucose (eAG) with all Hemoglobin A1c results using the equation derived from a study of 507 normal and diabetic adults. Minority populations were underrepresented and children were not included. (Diabetes Care 31:9356-8423, 2008). The eAG is not equivalent to a fasting glucose. Blood specimen (specimen) 04/12/2019 4:10 AM VIDEO RECORDER MECHANIC 04/12/2019 6:03 AM VIDEO RECORDER MECHANIC David VOSS LAB BLOOD ORDERABLES Final Result Performing Organization Address [facility] de Phone Number [facility] [place] [address] * (ABNORMAL) Lipid panel (04/12/2019 3:41 AM VIDEO RECORDER MECHANIC) Cholesterol 78 30 - 199 mg/dL [facility] Comment: Interpretive Data Ages < or [...] revised on 2017. Triglycerides 61 <=149 mg/dL [facility] Comment: Interpretive Data Ages < or [...] Pediatrics 2011;128:S213 2. NCEP Expert Panel. Circulation 2003;110:227 Current Interpretive Data was last revised on 2017. HDL 29(L) >=40 mg/dL [facility] Comment: Interpretive Data Ages < or [...] on 2017. LDL, calculated 37 <=129 mg/dL [facility] Comment: Interpretive Data Ages < or [...] revised on 2017. Non-HDL Cholesterol 49 mg/dL [facility] Comment: Interpretive Data Ages < or [...] last revised on 2017. Chol/HDL ratio 3 [facility] Blood specimen (specimen) 04/12/2019 3:41 AM VIDEO RECORDER MECHANIC 04/12/2019 5:47 AM VIDEO RECORDER MECHANIC us Yvonne Matthew MD LAB BLOOD ORDERABLES F inal Result [facility] One [facility] Department [place] [address] from Last 3 Months or Most Recently Relevant to Health Maintenance Insurance [facility] MEDICARE T MEDICARE [facility] MEDICARE ADVANTAGE [facility] MEDICARE ADVANTAGE Advance Directives For more information, please contact: [phone] * Full Code (Latest Code Status on File) Date Activated Date Inactivated Comments 02/29/2024 8:34 PM 03/02/2024 7:26 PM * Full Code Date Activated Date Inactivated Comments 04/12/2019 3:29 AM 04/20/2019 6:41 PM Care Teams Coach Mechanic Relationship Specialty Start Date End Date Santi Roy MD [address] [facility] [address] [place] [address] PCP - General Family Medicine 02/23/19 Itz Boyd MD [address] [address] Consulting Physician Nephrology 07/26/23 Joe Arce MD [address] [facility] [address] [facility] [address] [facility] [address] [place] [address] Consulting Physician Cardiology 03/02/24
--- OUTSIDE RECORDS SUMMARY | 2024-11-27 15:19 | XMS_ITS | Encounter Summary ---
Author Organization [facility] Address [address] [place] [address] Care Team Providers Care Recruiting Assistant Name Role Phone Santi Roy MD Primary Care Provider [phone] Encounter Details Date Type Department Care Team (Late st Contact Info) Description 03/04/2021 Telephone [facility] [address] [place] [address] Santi Angelo MD [address] [place] [place] [id number] Social History Tobacco Use Types Packs/Day Years Used Date Smoking Tobacco: Former Cigarettes 1.5 45 1 944 - 1989 Smokeless Tobacco: Former Chew Alcohol Use Standard Drinks/Week Comments Not Currently 0 (1 standard drink = 0.6 oz pur e alcohol) 20yrs ago Sex and Gender Information Value Date Recorded Sex Assigned at Not on file Legal Sex Male 3:[address] TABLEMAN Gender Identity Not on file Sexual Orientation Not on file COVID-19 Exposure Response Date Recorded In the last month, have you been in contact with someone who was confirmed or suspected to have Coronavirus / COVID-19? No / Unsure 02/20/2021 12:[address] TABLEMAN documented as of this encounter Plan of Treatment Not on file documented as of this encounter Visit Diagnoses Not on filedocumented in this encounter Care Teams Recruiting Assistant Relationship Specialty Start Date End Date Santi Roy MD [address] [place] [address] PCP - General 12/18/19 documented as of this encounter
--- OUTSIDE RECORDS SUMMARY | 2024-11-27 15:19 | XMS_ITS | Encounter Summary ---
Author Organization [facility] Address [address] [facility] [address] Care Team Providers Care Electrician Assistant Name Role Phone Santi Roy MD Primary Care Provider [phone] Encounter Details Date Type Department Care Team (Late st Contact Info) Description 04/23/2021 Telephone [facility] [address] [place] [address] Santi Angelo MD [address] DIV [facility] [place] [address] Social History Tobacco Use Types Packs/Day Years Used Date Smoking Tobacco: Former Cigarettes 1.5 45 1 944 - 1989 Smokeless Tobacco: Former Chew Alcohol Use Standard Drinks/Week Comments Not Currently 0 (1 standard drink = 0.6 oz pur e alcohol) 20yrs ago Sex and Gender Information Value Date Recorded Sex Assigned at Not on file Legal Sex Male 3:10 PM MOTOR OPERATOR Gender Identity Not on file Sexual Orientation Not on file documented as of this encounter Plan of Treatment Not on file documented as of this encounter Visit Diagnoses Not on filedocumented in this encounter Care Teams Electrician Assistant Relationship Specialty Start Date End Date Santi Roy MD [address] [place] [address] PCP - General 12/18/19 documented as of this encounter
--- OUTSIDE RECORDS SUMMARY | 2024-11-27 15:19 | XMS_ITS | Clinical Summary ---
Author Organization [facility] Address [address] [place] [address] Phone Care Team Providers Care Trailer Chief Name Role Phone Unavailable Primary Care Provider [...]
--- OUTSIDE RECORDS SUMMARY | 2024-11-27 15:19 | XMS_ITS | Encounter Summary ---
Author Organization [facility] Address [address] [facility] [place] [address] Care Team Providers Care Garage Laborer Name Role Phone Santi Roy MD Primary Care Provider [phone] Encounter Details Date Type Department Care Team (Late st Contact Info) Description 09/29/2020 Telephone [facility] [address] [place] [address] Santi Angelo MD [address] OF [facility] [place] [address] Social History Tobacco Use Types Packs/Day Years Used Date Smoking Tobacco: Former Cigarettes 1.5 45 Smokeless Tobacco: Former Chew Alcohol Use Standard Drinks/Week Comments Not Currently 0 (1 standard drink = 0.6 oz pur e alcohol) 20yrs ago Sex and Gender Information Value Date Recorded Sex Assigned at Not on file Legal Sex Male 3:10 PM OIL SCOUT Gender Identity Not on file Sexual Orientation Not on file documented as of this encounter Plan of Treatment Not on file documented as of this encounter Visit Diagnoses Not on filedocumented in this encounter Care Teams Garage Laborer Relationship Specialty Start Date End Date Santi Roy MD [address] [place] [address] PCP - General 12/18/19 documented as of this encounter
--- OUTSIDE RECORDS SUMMARY | 2024-11-27 15:19 | XMS_ITS | Encounter Summary ---
Author Organization [facility] Healthcare Address [address] [place] [address] Care Team Providers Care Housing Management Officer Name Role Phone Santi Roy MD Primary Care Provider Itz Boyd MD Unavailable [phone] Joe Arce MD Unavailable Encounter Details Date Type Department Care Team (Late st Contact Info) Description 02/21/2024 Orders Only [facility] Information Management [address] [place] [address] Scanning, Provider Social History Tobacco Use Types [...] on file Legal Sex Male 1:08 PM GALLEY BOY Gender Identity Not on file Sexual Orientation [...] on filedocumented in this encounter Care Teams Housing Management Officer Relationship Specialty Start Date End Date Santi Roy MD [address] [place] [address] PCP - General Family Medicine 02/23/19 Itz Boyd MD [address] [facility] 1 [place] [address] Consulting Physician Nephrology 07/26/23 Joe Arce MD [address] [place] [address] Consulting Physician Cardiology 03/02/24 documented as of this encounter
--- OUTSIDE RECORDS SUMMARY | 2024-11-27 15:19 | XMS_ITS | Encounter Summary ---
Author Organization [facility] Healthcare Address [address] [place] [address] Care Team Providers Care Customer Assistance Associate Name Role Phone Santi Roy MD Primary Care Provider Itz Boyd MD Unavailable [phone] Joe Arce MD Unavailable Encounter Details Date Type Department Care Team (Late st Contact Info) Description 03/05/2024 [facility] Post Discharge Follow up phone call [address] [address] Jana Sebastian, PAKO Social History Tobacco Use Types Packs/Day Years Used Date Smoking Tobacco: Former Cigarettes 0.1 50 0 02/23/1942 - 02/24/1992 Smokeless Tobacco: Former Alcohol Use Standard Drinks/Week Comments Not Currently 0 (1 standard drink = 0.6 oz pur e alcohol) [facility] Utilities Answer Date Recorded In the past 12 months has [employer], gas, oil, or water company threatened to [...] often do you attend chur ch or baptism services? Never 03/01/2024 Do you belong to any clubs o r organizations such as anabaptism groups, unions, fraternal or athletic groups, or [...] any time in the past 12 m [facility], were you homeless or living in a chcf (including now)? No 03/01/2024 Personal Safety Answer Date Recorded Have you ever been in or are you currently in a harmful physical or emotional relationship or is someone making you feel afraid or unsafe? 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 Male 1:08 PM SAFETY SPECIALIST Gender Identity Not on file Sexual Orientation Not on file documented as of this encounter Plan of Treatment Not on file documented as of this encounter Visit Diagnoses Not on filedocumented in this encounter Care Teams Customer Assistance Associate Relationship Specialty Start Date End Date Santi Roy MD [address] [place] [address] PCP - General Family Medicine 02/23/19 Itz Boyd MD [address] [facility] 1 [place] [address] Consulting Physician Nephrology 07/26/23 Joe Arce MD [address] [place] [address] Consulting Physician Cardiology 03/02/24 documented as of this encounter
--- OUTSIDE RECORDS SUMMARY | 2024-11-27 15:19 | XMS_ITS | Encounter Summary ---
Author Organization [facility] Healthcare Address [address] [place] [address] Care Team Providers Care Senior Lead Java Developer Name Role Phone Santi Roy MD Primary Care Provider Itz Boyd MD Unavailable [phone] Joe Arce MD Unavailable Encounter Details Date Type Department Care Team (Late st Contact Info) Description 02/28/2024 Orders Only [facility] Health Information Management [address] [place] [address] Scanning, Provider Social History Tobacco Use Types Packs/Day Years Used Date Smoking Tobacco: Former Cigarettes 0.1 50 0 02/23/1942 - 02/24/1992 Smokeless Tobacco: Former Alcohol Use Standard Drinks/Week Comments Not Currently 0 (1 standard drink = 0.6 oz pur e alcohol) [facility] Utilities Answer Date Recorded In the past 12 months has [employer], gas, oil, or water company threatened to [...] often do you attend chur ch or zoroastrian services? Never 03/01/2024 Do you belong to any clubs o r organizations such as mormonism groups, unions, fraternal or athletic groups, or [...] any time in the past 12 m [facility], were you homeless or living in a custodial (including now)? No 03/01/2024 Personal Safety Answer Date Recorded Have you ever been in or are you currently in a harmful physical or emotional relationship or is someone making you feel afraid or unsafe? 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
--- OUTSIDE RECORDS SUMMARY | 2024-11-27 15:19 | XMS_ITS | Encounter Summary ---
Author Organization [facility] Address [address] [facility] [place] [address] Care Team Providers Care Button Attaching Machine Operator Name Role Phone Santi Roy MD Primary Care Provider [phone] Encounter Details Date Type Department Care Team (Late st Contact Info) Description 09/30/2020 Telephone [facility] [address] [place] [address] Santi Angelo MD [address] OF [facility] [place] [address] Social History Tobacco Use Types Packs/Day Years Used Date Smoking Tobacco: Former Cigarettes 1.5 45 Smokeless Tobacco: Former Chew Alcohol Use Standard Drinks/Week Comments Not Currently 0 (1 standard drink = 0.6 oz pur e alcohol) 20yrs ago Sex and Gender Information Value Date Recorded Sex Assigned at Not on file Legal Sex Male 3:10 PM NP Gender Identity Not on file Sexual Orientation Not on file documented as of this encounter Plan of Treatment Not on file documented as of this encounter Visit Diagnoses Not on filedocumented in this encounter Care Teams Button Attaching Machine Operator Relationship Specialty Start Date End Date Santi Roy MD [address] [place] [address] PCP - General 12/18/19 documented as of this encounter
--- OUTSIDE RECORDS SUMMARY | 2024-11-27 15:19 | XMS_ITS | Encounter Summary ---
Author Organization [facility] Address [address] [facility] [place] [address] Care Team Providers Care Van Driver Name Role Phone Santi Roy MD Primary Care Provider [phone] Encounter Details Date Type Department Care Team (Late st Contact Info) Description 03/17/2021 Telephone [facility] [address] [place] [address] Santi Angelo MD [address] OF [facility] [place] [phone] Social History Tobacco Use Types Packs/Day Years Used Date Smoking Tobacco: Former Cigarettes 1.5 45 1 944 - 1989 Smokeless Tobacco: Former Chew Alcohol Use Standard Drinks/Week Comments Not Currently 0 (1 standard drink = 0.6 oz pur e alcohol) 20yrs ago Sex and Gender Information Value Date Recorded Sex Assigned at Not on file Legal Sex Male 3:10 PM PUNCH MOLDER Gender Identity Not on file Sexual Orientation Not on file COVID-19 Exposure Response Date Recorded In the last month, have you been in contact with someone who was confirmed or suspected to have Coronavirus / COVID-19? No / Unsure 02/20/2021 12:39 PM PUNCH MOLDER documented as of this encounter Plan of Treatment Not on file documented as of this encounter Visit Diagnoses Not on filedocumented in this encounter Care Teams Van Driver Relationship Specialty Start Date End Date Santi Roy MD [address] [place] [address] PCP - General 12/18/19 documented as of this encounter
--- OUTSIDE RECORDS SUMMARY | 2024-11-27 15:19 | XMS_ITS | Encounter Summary ---
Author Organization [facility] Address [address] [facility] [place] [address] Care Team Providers Care Tuck Pointer Helper Name Role Phone Santi Roy MD Primary Care Provider [phone] Encounter Details Date Type Department Care Team (Late st Contact Info) Description 10/28/2020 Telephone [facility] [address] [place] [address] Santi Angelo MD [address] OF [facility] [place] [address] Social History Tobacco Use Types Packs/Day Years Used Date Smoking Tobacco: Former Cigarettes 1.5 45 Smokeless Tobacco: Former Chew Alcohol Use Standard Drinks/Week Comments Not Currently 0 (1 standard drink = 0.6 oz pur e alcohol) 20yrs ago Sex and Gender Information Value Date Recorded Sex Assigned at Not on file Legal 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
--- OUTSIDE RECORDS SUMMARY | 2024-11-27 15:19 | XMS_ITS | Encounter Summary ---
Author Organization [facility] Healthcare Address [address] [place] [address] Care Team Providers Care Entry Rep Name Role Phone Santi Roy MD Primary Care Provider Itz Boyd MD Unavailable [phone] Joe Arce MD Unavailable Reason for Visit * Reason Onset Date Comments Atrial Fibrillation 11/27/2024 Encounter Details Date Type Department Care Team (Late st Contact Info) Description 11/27/2024 Telephone [facility] Medical Group Cardiology [address] [facility] [address] [place] [address] Wilfred Charles MD [address] [facility] [address] [facility] [address] [place], [place] [id number] Atrial Fibrillation Social History Tobacco Use Types Packs/Day Years Used Date Smoking Tobacco: Former Cigarettes 0.1 50 0 02/23/1942 - 02/24/1992 Smokeless Tobacco: Former Alcohol Use Standard Drinks/Week Comments Not Currently 0 (1 standard drink = 0.6 oz pur e alcohol) [facility] Utilities Answer Date Recorded In the past 12 months has [employer], gas, oil, or water company threatened [...] often do you attend chur ch or moravian services? Never 03/01/2024 Do you belong to [...] any time in the past 12 m [facility], were you homeless or living in a jail (including now)? No 03/01/2024 Personal Safety Answer Date Recorded Have you ever been in or are you currently in a harmful physical or emotional relationship or is someone making you feel afraid or unsafe? 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 Male 1:08 PM RN INTERNATIONAL Gender Identity Not on file Sexual Orientation Not on file documented as of this encounter Miscellaneous Notes * Telephone Encounter - Yvonne Yuan RN - 11/27/2024 12:02 PM CDT Spoke with Martha from [facility]. Pt was sent to ER last after dialysis for afib with elevated HR. Pt reported that he was not feeling well. Per Martha, pt had CV at and was started on amiodarone.Pt was discharged on Tuesday and when he went to the pharmacy to picking belt operator the amiodarone the pharmacywas out. Pt just took first dose today since being discharged. Pt was reported to be in Sinus Rhythm on Tuesday at Dialysis. [facility] states that pt had dialysis today and was back in A- fib HR 120-130. Pt denied any symptoms. Pt was sent to ER for evaluation. * Telephone Encounter - Mary Meraz - 11/27/2024 9:31 AM CDT FYI: Martha from [facility] states that the pt is in their office today and he is currently in a-fib. States that he had a cardioversion at last week and was placed on amiodarone. States that the pharmacy was out of stock of the medication and the pt just received it today 11/27 and started it. Martha wanted to see if the pt could get into office with [facility] and I informed her that the pt needs to go to the ED to be further evaluated and treated. Martha states that she would send the pt to . documented in this encounter Plan of Treatment Not on file documented as of this encounter Visit Diagnoses Not on filedocumented in this encounter Care Teams Entry Rep Relationship Specialty Start Date End Date Santi Roy MD [address] [place] [address] PCP - General Family Medicine 02/23/19 Itz Boyd MD [address] [facility] 1 [place] [address] Consulting Physician Nephrology 07/26/23 Joe Arce MD [address] [place] [address] Consulting Physician Cardiology 03/02/24 documented as of this encounter
--- OUTSIDE RECORDS SUMMARY | 2024-11-27 15:19 | XMS_ITS | Encounter Summary ---
Author Organization [facility] Healthcare Address [address] [place] [address] Care Team Providers Care Magnesium Mill Operator Name Role Phone Santi Roy MD Primary Care Provider Itz Boyd MD Unavailable [phone] Joe Arce MD Unavailable Encounter Details Date Type Department Care Team (Late st Contact Info) Description 07/28/2023 Telephone [facility] [address] [facility] [address] [place] [address] Harvinder Fernando MD [address] [facility] 120 [place] [address] Social History Tobacco Use Types [...] on file Legal Sex Male 1:08 PM RUG WEAVER Gender Identity Not on file Sexual Orientation [...] on filedocumented in this encounter Care Teams Magnesium Mill Operator Relationship Specialty Start Date End Date Santi Roy MD [address] [facility] [address] [facility] 120 [place] [address] PCP - General Family Medicine 02/23/19 Itz Boyd MD [address] [facility] 1 [place] [address] Consulting Physician Nephrology 07/26/23 Joe Arce MD [address] [facility] [address] [place] [address] Consulting Physician Cardiology 03/02/24 documented as of this encounter
--- OUTSIDE RECORDS SUMMARY | 2024-11-27 15:19 | XMS_ITS | Encounter Summary ---
Author Organization [facility] Address [address] [facility] [place] [address] Care Team Providers Care Stator Winder Name Role Phone Santi Roy MD Primary Care Provider Encounter Details Date Type Department Care Team (Late st Contact Info) Description 05/15/2021 Telephone [facility] [address] [place] [address] Santi Angelo MD [address] OF [facility] [place] [address] Social History Tobacco Use Types Packs/Day Years Used Date Smoking Tobacco: Former Cigarettes 1.5 45 1 944 - 1989 Smokeless Tobacco: Former Chew Alcohol Use Standard Drinks/Week Comments Not Currently 0 (1 standard drink = 0.6 oz pur e alcohol) 20yrs ago Sex and Gender Information Value Date Recorded Sex Assigned at Not on file Legal Sex Male 3:10 PM CLINICAL SPECIALIST VASCULAR Gender Identity Not on file Sexual Orientation Not on file documented as of this encounter Functional Status documented as of this encounter Plan of Treatment Not on file documented as of this encounter Visit Diagnoses Not on filedocumented in this encounter Care Teams Stator Winder Relationship Specialty Start Date End Date Santi Roy MD [address] [place] [address] PCP - General 12/18/19 documented as of this encounter
[2024-11-27 16:26] LABS: Troponin I < 0.012 ng/mL (0.000-0.034)
--- OUTSIDE RECORDS SUMMARY | 2024-11-27 17:19 | XMS_ITS | Encounter Summary ---
Author Organization [facility] Address [address] [facility] [place] [address] Care Team Providers Care Diamond Assorter Name Role Phone Santi Roy MD Primary Care Provider [phone] Encounter Details Date Type Department Care Team (Late st Contact Info) Description 03/13/2021 Telephone [facility] [address] [place] [address] Santi Angelo MD [address] OF [facility] [place] [phone] Social History Tobacco Use Types Packs/Day Years Used Date Smoking Tobacco: Former Cigarettes 1.5 45 1 944 - 1989 Smokeless Tobacco: Former Chew Alcohol Use Standard Drinks/Week Comments Not Currently 0 (1 standard drink = 0.6 oz pur e alcohol) 20yrs ago Sex and Gender Information Value Date Recorded Sex Assigned at Not on file Legal Sex Male 3:10 PM CENTER AISLE CASHIER Gender Identity Not on file Sexual Orientation Not on file COVID-19 Exposure Response Date Recorded In the last month, have you been in contact with someone who was confirmed or suspected to have Coronavirus / COVID-19? No / Unsure 02/20/2021 12:39 PM CENTER AISLE CASHIER documented as of this encounter Plan of Treatment Not on file documented as of this encounter Visit Diagnoses Not on filedocumented in this encounter Care Teams Diamond Assorter Relationship Specialty Start Date End Date Santi Roy MD [address] [place] [address] PCP - General 12/18/19 documented as of this encounter
--- OUTSIDE RECORDS SUMMARY | 2024-11-27 17:19 | XMS_ITS | Encounter Summary ---
Author Organization [facility] Address [address] [facility] [place] [address] Care Team Providers Care Crane Hoist Or Lift Operator Name Role Phone Santi Roy MD Primary Care Provider [phone] Encounter Details Date Type Department Care Team (Late st Contact Info) Description 10/28/2020 Telephone [facility] [address] [place] [address] Santi Angelo MD [address] OF [facility] [place] [address] Social History Tobacco Use Types Packs/Day Years Used Date Smoking Tobacco: Former Cigarettes 1.5 45 Smokeless Tobacco: Former Chew Alcohol Use Standard Drinks/Week Comments Not Currently 0 (1 standard drink = 0.6 oz pur e alcohol) 20yrs ago Sex and Gender Information Value Date Recorded Sex Assigned at Not on file Legal Sex Male 3:10 PM APPRISE COUNSELOR Gender Identity Not on file Sexual Orientation Not on file documented as of this encounter Plan of Treatment Not on file documented as of this encounter Visit Diagnoses Not on filedocumented in this encounter Care Teams Crane Hoist Or Lift Operator Relationship Specialty Start Date End Date Santi Roy MD [address] [place] [address] PCP - General 12/18/19 documented as of this encounter
--- OUTSIDE RECORDS SUMMARY | 2024-11-27 17:19 | XMS_ITS | Encounter Summary ---
Author Organization [facility] Address [address] [facility] [place] [address] Care Team Providers Care Belt Changer Name Role Phone Santi Roy MD Primary Care Provider Encounter Details Date Type Department Care Team (Late st Contact Info) Description 09/30/2020 Telephone [facility] [address] [place] [address] Santi Angelo MD [address] OF [facility] [place] [address] Social History Tobacco Use Types Packs/Day Years Used Date Smoking Tobacco: Former Cigarettes 1.5 45 Smokeless Tobacco: Former Chew Alcohol Use Standard Drinks/Week Comments Not Currently 0 (1 standard drink = 0.6 oz pur e alcohol) 20yrs ago Sex and Gender Information Value Date Recorded Sex Assigned at Not on file Legal Sex Male 3: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
--- OUTSIDE RECORDS SUMMARY | 2024-11-27 17:19 | XMS_ITS | Encounter Summary ---
Author Organization [facility] Address [address] [facility] [place] [address] Care Team Providers Care Reeling And Tubing Machine Operator Name Role Phone Santi Roy MD Primary Care Provider [phone] Encounter Details Date Type Department Care Team (Late st Contact Info) Description 09/29/2020 Telephone [facility] [address] [place] [address] Santi Angelo MD [address] OF [facility] [place] [address] Social History Tobacco Use Types Packs/Day Years Used Date Smoking Tobacco: Former Cigarettes 1.5 45 Smokeless Tobacco: Former Chew Alcohol Use Standard Drinks/Week Comments Not Currently 0 (1 standard drink = 0.6 oz pur e alcohol) 20yrs ago Sex and Gender Information Value Date Recorded Sex Assigned at Not on file Legal Sex Male 3:10 PM 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
--- OUTSIDE RECORDS SUMMARY | 2024-11-27 17:19 | XMS_ITS | Encounter Summary ---
Author Organization [facility] Address [address] [place] [address] Care Team Providers Care Commercial Production Editor Name Role Phone Santi Roy MD Primary Care Provider [phone] Encounter Details Date Type Department Care Team (Late st Contact Info) Description 03/04/2021 Telephone [facility] [address] [place] [address] Santi Angelo MD [address] [place] [id number] Social History Tobacco Use Types Packs/Day Years Used Date Smoking Tobacco: Former Cigarettes 1.5 45 1 944 - 1989 Smokeless Tobacco: Former Chew Alcohol Use Standard Drinks/Week Comments Not Currently 0 (1 standard drink = 0.6 oz pur e alcohol) 20yrs ago Sex and Gender Information Value Date Recorded Sex Assigned at Not on file Legal Sex Male 3:10 PM SHIFT SUPERVISOR RN Gender Identity Not on file Sexual Orientation Not on file COVID-19 Exposure Response Date Recorded In the last month, have you been in contact with someone who was confirmed or suspected to have Coronavirus / COVID-19? No / Unsure 02/20/2021 12:39 PM SHIFT SUPERVISOR RN documented as of this encounter Plan of Treatment Not on file documented as of this encounter Visit Diagnoses Not on filedocumented in this encounter Care Teams Commercial Production Editor Relationship Specialty Start Date End Date Santi Roy MD [address] [place] [address] PCP - General 12/18/19 documented as of this encounter
--- OUTSIDE RECORDS SUMMARY | 2024-11-27 17:19 | XMS_ITS | Encounter Summary ---
Author Organization [facility] Address [address] [place] [address] Care Team Providers Care Ladle Cleaner Name Role Phone Santi Roy MD Primary Care Provider [phone] Encounter Details Date Type Department Care Team (Late st Contact Info) Description 04/23/2021 Telephone [facility] [address] [place] [address] Santi Angelo MD [address] DIV OF [facility] [place] [address] Social History Tobacco Use Types Packs/Day Years Used Date Smoking Tobacco: Former Cigarettes 1.5 45 1 944 - 1989 Smokeless Tobacco: Former Chew Alcohol Use Standard Drinks/Week Comments Not Currently 0 (1 standard drink = 0.6 oz pur e alcohol) 20yrs ago Sex and Gender Information Value Date Recorded Sex Assigned at Not on file Legal Sex Male 3:10 PM PRACTICE SUPPORT SPECIALIST Gender Identity Not on file Sexual Orientation Not on file documented as of this encounter Plan of Treatment Not on file documented as of this encounter Visit Diagnoses Not on filedocumented in this encounter Care Teams Ladle Cleaner Relationship Specialty Start Date End Date Santi Roy MD [address] [place] [address] PCP - General 12/18/19 documented as of this encounter
--- OUTSIDE RECORDS SUMMARY | 2024-11-27 17:19 | XMS_ITS | Clinical Summary ---
Author Organization [email or web address] Address [address] [place] [address] Care Team Providers Care Wrapper Rewinder Name Role Phone Santi Roy MD Primary Care Provider [phone] Source Comments [email or web address],non-owned Affiliates and Associated Physician Practices is amultiple site organization consisting of ambulatory clinics and hospital sitesin [place], [place], [place] and [place]. This disclosure is being madepursuant to the Care Everywhere program and may not contain all information available regarding this patient. Last updated 17.[email or web address] Allergies No known active allergies Medications * [...] on file Legal Sex Male 3:10 PM PHOTOENGRAVING ETCHER APPRENTICE Gender Identity Not on file Sexual Orientation [...] this topic Medical Devices Implanted Type Area Roller Turner Device Identifier Shelf Expiration Date Model / Serial / Lot Mesh Srg 6x3in Lg Pore Knit [facility] Rnd Implanted:Qty: 1 on 03/30/2021 by Santi Angelo MD at [facility] Left: [employer] 11/04/2025 [id number] / / [id number] Mesh Srg 6x3in Lg Pore Knit Mfl Jose Rnd Implanted:Qty: 1 on 03/30/2021 by Santi Angelo MD at [facility] Right: [employer] 11/04/2025 [id number] / / [id number] Insurance AETNA AETNA Care Teams Wrapper Rewinder Relationship Specialty Start Date End Date Santi Roy MD [address] [place] [address] PCP - General 12/18/19
--- OUTSIDE RECORDS SUMMARY | 2024-11-27 17:19 | XMS_ITS | Clinical Summary ---
Author Organization [facility] Address [address] [place] [id number] Phone Care Team Providers Care Electronic Data Processing Auditor Name Role Phone Unavailable Primary Care Provider [...]
--- OUTSIDE RECORDS SUMMARY | 2024-11-27 17:19 | XMS_ITS | Encounter Summary ---
Author Organization [facility] Address [address] [place] [address] Care Team Providers Care Vegetable Vendor Name Role Phone Santi Roy MD Primary Care Provider [phone] Encounter Details Date Type Department Care Team (Late st Contact Info) Description 03/17/2021 Telephone [facility] [address] [place] [address] Santi Angelo MD [address] OF [facility] [place] [phone] Social History Tobacco Use Types Packs/Day Years Used Date Smoking Tobacco: Former Cigarettes 1.5 45 1 944 - 1989 Smokeless Tobacco: Former Chew Alcohol Use Standard Drinks/Week Comments Not Currently 0 (1 standard drink = 0.6 oz pur e alcohol) 20yrs ago Sex and Gender Information Value Date Recorded Sex Assigned at Not on file 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 No / Unsure 02/20/2021 12:39 PM INSULATION MANAGER documented as of this encounter Plan of Treatment Not on file documented as of this encounter Visit Diagnoses Not on filedocumented in this encounter Care Teams Vegetable Vendor Relationship Specialty Start Date End Date Santi Roy MD [address] [place] [address] PCP - General 12/18/19 documented as of this encounter
--- OUTSIDE RECORDS SUMMARY | 2024-11-27 17:19 | XMS_ITS | Encounter Summary ---
Author Organization [facility] Address [address] [place] [address] Care Team Providers Care Rn Intern Name Role Phone Santi Roy MD Primary Care Provider Encounter Details Date Type Department Care Team (Late st Contact Info) Description 05/15/2021 Telephone [facility] [address] [place] [address] Santi Angelo MD [address] OF [facility] [place] [address] Social History Tobacco Use Types Packs/Day Years Used Date Smoking Tobacco: Former Cigarettes 1.5 45 1 944 - 1989 Smokeless Tobacco: Former Chew Alcohol Use Standard Drinks/Week Comments Not Currently 0 (1 standard drink = 0.6 oz pur e alcohol) 20yrs ago Sex and Gender Information Value Date Recorded Sex Assigned at Not on file 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
--- NOTE | 2024-11-27 17:34 | PC.NURSE ---
Per Dr Hammer, only given 500mls d/t dialysis.
--- NOTE | 2024-11-27 18:24 | ADMGEN ---
This patient, Leobardo Reyes, was admitted to IMU Room 201-01. Patient/family oriented to hospital policies and general routines including ID bracelet, bed and alarms, visiting hours, pain management, procedures, bathroom and other care routines, personal items, smoking policy, room service/diet, and visiting hours. Information on how to activate the Rapid Response Team has been discussed. Patient/Family are encouraged to report perceived risks to care and to ask questions if they do not understand what they are told or what they should do.
[2024-11-27 20:05] LABS: MRSA (PCR) NOT DETECTED (NOT DETECTE)
--- NOTE | 2024-11-27 20:36 | PM.IMHP ---
H&P: HPI History of Present Illness Date/Time: 11/27/24 20:36 Chief Complaint: High Heart Rate Narrative: 84 y/o M with PMH of paroxysmal atrial fibrillation, hypertension, diabetes, CHF, iron deficiency anemia, COPD, hyperlipidemia, and ESRD on HD presents here with an elevated heart rate. The patient presents here via personal vehicle on 11/27 from his dialysis center for further evaluation of an elevated heart rate. The patient has a history of ESRD on HD () and was at his treatment today when he was informed he had an elevated heart rate in the 120s. Despite the tachycardia he was able to receive his full treatment of dialysis. The tachycardia is accompanied by shortness of breath, has been ongoing for the past 2-3 weeks, and has been mild except when he exerts himself. The patient has a history of paroxysmal AFib for which he was recently admitted from 11/22-11/23. During this admission he was cardioverted on the and discharged home on amiodarone. However the patient reports he has been unable to fill this prescription until yesterday afternoon around 5 pm, 1st dose taken at that time (missed two days). He follows with Dr. Charles for his cardiac care. Currently palpitations, chest pain, shortness of breath, nausea, vomiting, or diaphoresis. Initial VS at presentation: 98? F, HR 95, R 16, 127/78, and 92% on RA. Tachycardic into the 119s. ED workup showed: No leukocytosis, hemoglobin 9.6 (at baseline), creatinine 2.25 and GFR 28, glucose 256, initial troponin negative x2. CXR showed bibasilar atelectasis. EKG showed AFib with RVR, rate 109. Review of Systems Review of Systems: All systems reviewed & are unremarkable except as noted in HPI and below [facility] Past Medical History Medical History Obstructive sleep apnea End-stage renal disease on hemodialysis Insulin dependent diabetes mellitus Paroxysmal atrial fibrillation Hypertension Mitral valve regurgitation [id number] noted on RODNEY February 2020 Thrombus of left atrial appendage Duodenal ulcer disease Iron deficiency anemia Glaucoma Adenomatous colon polyp Chronic obstructive pulmonary disease Hyperlipidemia Primary osteoarthritis, unspecified site Surgical History Surgical History S/P dialysis catheter insertion History of cholecystectomy History of open reduction and internal fixation (ORIF) procedure (1977) repair of left lower extremity fracture History of cataract extraction with lens replacement History of right shoulder replacement (2010) History of bilateral knee replacement (2004) History of esophagogastroduodenoscopy (EGD) (12/2019) History of colonoscopy with polypectomy (12/2019) Family History Family History Mother Diabetes mellitus Heart disease Father Lung cancer Sibling Lung cancer Breast cancer Son , 52 years of age Drug abuse Social History Social History Social History: He is . His only son has passed. His great grandson jessica Reyes list with him and helps to take care from. Surrogate medical decision maker: bessie Lauren ([phone]). Code status: Full code. Smoking packs per day: 1 Smoking cigarettes per day: 20.0 Years smoked: 50 Smoking pack-years: 50.00 Smoking status: Former smoker Tobacco type: cigarettes Second hand tobacco smoke exposure: Yes Smoking end date: 02/07/02 Alcohol intake: never Substance use: never Substance use type: does not use Last use: 2000 Do You Feel Safe in your Home?: Yes Lack of Transportation: No Lack of Food: Never True Current Housing: I Have Housing Concerned About Future Housing: No Difficulty Paying Gas/Electric Bills: No Difficulty Paying for Meds: No Currently Unemployed: No Education: Grade School Difficulty w/ Childcare or Family Care: No Living arrangements: with family Additional living arrangements comments: Lives in [place]. His grandson whom he helped raised lives with him. Occupation/Education: retired Additional occupation/education comments: [employer] Spiritual care concerns: No Meds Home Medications and Allergies Home Medications ?Medication ?Instructions ?Recorded ?Confirmed ?Type furosemide 20 mg tablet 20 mg PO Q12H 04/27/19 11/27/24 History latanoprost 0.005 % eye drops 1 drop ophthalmic (eye) HS 04/27/19 11/27/24 History alcohol swabs (Alcohol Prep Pads) 1 pad topical TID #100 ea 05/13/22 11/27/24 Rx blood-glucose meter (OneTouch #1 ea 11/22/22 11/27/24 Rx Ultra2 Meter) blood sugar diagnostic (EasyMax #300 ea 04/13/23 11/27/24 Rx strips) pen needle, diabetic 32 gauge x #100 ea 11/07/23 11/27/24 Rx 5/32 (UltiCare Pen Needle) fluticasone fur. 100 mcg-umeclid See Rx Instructions .Route 11/14/23 11/27/24 Rx 62.5 mcg-vilant 25 mcg .COMPLEX #180 ea inhalat.powder (Trelegy Ellipta) amlodipine 5 mg tablet 10 mg PO DAILY 08/06/24 11/27/24 History diltiazem HCl 300 mg 300 mg PO DAILY 08/06/24 11/27/24 History capsule,extended release 24 hr (Cardizem CD) lancets 30 gauge (Easy Touch Twist #300 ea 09/27/24 11/27/24 Rx Lancets) alprazolam 0.5 mg tablet (Xanax) 0.5 mg PO BID PRN anxiety #60 tabs 10/29/24 11/27/24 Rx insulin glargine 100 unit/mL (3 See Rx Instructions .Route 11/19/24 11/27/24 Rx mL) subcutaneous pen (Lantus .COMPLEX #15 mL Solostar U-100 Insulin) hydralazine 25 mg tablet 25 mg PO Q12H 11/22/24 11/27/24 History amiodarone 200 mg tablet (Pacerone) 200 mg PO BID #60 tabs 11/23/24 11/27/24 Rx apixaban 2.5 mg tablet 2.5 mg PO Q12H 11/27/24 11/27/24 History atorvastatin 20 mg tablet 20 mg PO HS 11/27/24 11/27/24 History clonidine HCl 0.1 mg tablet 0.1 mg PO Q12H 11/27/24 11/27/24 History metoprolol succinate 50 mg 50 mg PO HS 11/27/24 11/27/24 History tablet,extended release 24 hr (Toprol XL) pantoprazole 40 mg tablet,delayed 40 mg PO Q12H 11/27/24 11/27/24 History release Allergies Allergy/AdvReac Type Severity Reaction Status Date / Time No Known Allergies Allergy Verified 11/27/24 18:34 Vital Signs Vital Signs - 24 hr 11/27/24 12:44 11/27/24 13:50 11/27/24 13:57 Temperature 98 F Pulse Rate 95 110 H Respiratory Rate 16 28 H 22 H Blood Pressure 127/78 118/81 Pulse Oximetry 92 96 97 Oxygen Delivery Room Air Room Air 11/27/24 13:57 11/27/24 14:02 11/27/24 14:22 Temperature Pulse Rate 102 H 120 H 106 H Respiratory Rate 20 17 17 Blood Pressure 110/66 117/80 115/74 Pulse Oximetry 98 97 95 Oxygen Delivery 11/27/24 14:31 11/27/24 14:35 11/27/24 14:47 Temperature Pulse Rate 119 H 116 H 100 Respiratory Rate 35 H 26 H Blood Pressure 115/74 105/68 124/77 Pulse Oximetry 96 94 Oxygen Delivery 11/27/24 14:52 11/27/24 14:57 11/27/24 15:00 Temperature Pulse Rate 95 109 H 101 H Respiratory Rate 21 H 19 26 H Blood Pressure 108/71 96/66 L Pulse Oximetry 96 94 97 Oxygen Delivery 11/27/24 15:02 11/27/24 15:07 11/27/24 15:12 Temperature Pulse Rate 98 104 H 105 H Respiratory Rate 17 23 H 23 H Blood Pressure 103/53 L 106/55 L 105/81 Pulse Oximetry 95 95 97 Oxygen Delivery 11/27/24 15:17 Temperature Pulse Rate 101 H Respiratory Rate 31 H Blood Pressure 93/61 L Pulse Oximetry 99 Oxygen Delivery Exam Const: General: comfortable and no acute distress Other: , male, elderly, nontoxic appearance HENMT: Face/Nose/Sinus: Normal nares present Mouth: Yes moist mucous membranes Eyes: General: appearance normal, both eyes and all related structures Sclera: sclerae normal Pupils: Equal, round and reactive pupils present EOM: EOMs intact bilaterally Chest: Other: HD catheter to right chest Resp: Effort & Inspection: normal respiratory effort Auscultation: clear to auscultation bilaterally Cardio: Other: irregular HR, rate controlled. S1-S2 present without murmur. GI: Other: Abdomen soft, nondistended, nontender. Normoactive bowel sounds in all quadrants. Skin: General skin exam: normal color and no rashes or lesions noted Wounds: no wounds Neuro: Speech: normal speech Motor exam (neuro): 5/5 motor strength present throughout Sensory Exam: normal sensation Other: A&O x4 Extrem: Other: trace edema non-pitting to bilateral ankles, symmetric. Psych: Mental Status: mental status grossly normal Affect: normal affect Other: Good insight and judgment, very pleasant H&P: Results Labs Labs: Short CBC 11/27/24 Range/Units 12:57 WBC 9.9 (4.5-10.0) K/mm3 Hgb 9.6 L (14.0-18.0) g/dL Hct 28.2 L (42.0-52.0) % Plt Count 196 (150-375) k/mm3 BMP 11/27/24 12:57 Sodium 134 L Potassium 3.9 Chloride 93 L Carbon Dioxide 31 H BUN 19 D Creatinine 2.25 H Glucose 256 H Calcium 8.7 Cardiac Enzymes 11/27/24 11/27/24 Range/Units 12:57 15:58 Troponin I < 0.012 < 0.012 (0.000-0.034) ng/mL Liver Function 11/27/24 Range/Units 12:57 Total Bilirubin 0.6 (0.2-1.3) mg/dL AST 28 (17-59) U/L ALT 25 (6-50) U/L Alkaline Phosphatase 109 (38-126) U/L Albumin 4.0 (3.5-5.1) g/dL Assessment and Plan Assessment and plan (1) Paroxysmal A-fib: Code(s): I48.0 - Paroxysmal atrial fibrillation Status: Acute Assessment and Plan: Noted to have an elevated heart rate (120s) at his dialysis treatment today on 11/27. Recently here for paroxysmal AFib from 11/23-11/24. The patient was cardioverted on 11/23 and was discharged home on amiodarone. However he has not been able to fill his prescription for the past few days and missed 2 doses. Was able to take his 1st amiodarone dose yesterday on 11/26, high suspicion this is the cause of his recurrence. Given diltiazem IVP in the ED x2 and started on a diltiazem gtt >> continue at this time. Hold home amiodarone. Cardiology consulted. Telemetry monitoring. Continue Eliquis. (2) CHF (congestive heart failure): Qualifiers: Heart failure chronicity: unspecified Heart failure type: unspecified Qualified Code(s): I50.9 - Heart failure, unspecified Code(s): I50.9 - Heart failure, unspecified Status: Acute Assessment and Plan: Previous history of congestive heart failure. Last echo completed in February of 2024 which showed a normal LV systolic function with estimated EF of 65-70%. CXR completed on 11/27 which showed bibasilar atelectasis. - continue home Lasix, 20 mg b.i.d. as tolerated by a patient's blood pressure - patient noted to have ESRD on HD (3) Type 2 diabetes mellitus with hyperglycemia, with long-term current use of insulin: Code(s): E11.65 - Type 2 diabetes mellitus with hyperglycemia; Z79.4 - joint terminal attack controller (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 of insulin Status: Chronic Assessment and Plan: - hypoglycemia protocol - POC blood glucose ACHS - home medication: pharmacy to adjust his long-acting insulin. - correct regimen ordered - high dose TIDWM, based off BMI - A1C 5.9% 11/22/2024 (4) ESRD on dialysis: Code(s): N18.6 - End stage renal disease; Z99.2 - Dependence on renal dialysis Status: Chronic Assessment and Plan: History of ESRD on hemodialysis Tuesdays, , and Saturdays. - will need nephrology consultation if admission extending to , 11/29 - monitor electrolytes (5) Hypertension: Qualifiers: Hypertension type: primary hypertension Qualified Code(s): I10 - Essential (primary) hypertension Code(s): I10 - Essential (primary) hypertension Status: Chronic Assessment and Plan: - chronic, currently 102/59. Suspect reduction in blood pressure related to Cardizem drip. Will hold patient's home antihypertensives (metoprolol, amlodipine, hydralazine, clonidine), resume when appropriate. - monitor (6) Hyperlipidemia: Qualifiers: Hyperlipidemia type: unspecified Qualified Code(s): E78.5 - Hyperlipidemia, unspecified Code(s): E78.5 - Hyperlipidemia, unspecified Status: Chronic Assessment and Plan: - continue atorvastatin 20 mg daily (7) Anxiety: Code(s): F41.9 - Anxiety disorder, unspecified Status: Acute Assessment and Plan: - continue patient's home alprazolam 0.5 mg b.i.d. p.r.n. (8) SALOME (obstructive sleep apnea): Code(s): G47.33 - Obstructive sleep apnea (adult) (pediatric) Status: Acute Assessment and Plan: - continue home CPAP Plan Diet: Diabetic GI Prophylaxis: N/a DVT Prophylaxis: Eliquis IV fluids: None Lines/Tubes: Peripheral IV, HD catheter to right chest Code Status: Full code Quality VTE Prophylaxis VTE prophylaxis: pharmacologic ordered Hospitalist MIPS Advance Care Plan I have confirmed that the patient's Advanced Care Plan is present, code status is documented, or surrogate decision maker is listed in patient medical record.: Yes Medication Reconciliation I have utilized all available resources to obtain, update and review the patients current medications (includes all prescriptions, OTC, herbals, cannabis, and nutritional supplements).: Yes
[2024-11-27] MEDS: PANTOPRAZOLE 40 MG TABLET PO (22:28)
[2024-11-27] MEDS: FUROSEMIDE 20 MG TABLET PO (22:28)
[2024-11-27] MEDS: ATORVASTATIN 20 MG TABLET PO (22:28)
[2024-11-27] MEDS: INSULIN GLARGINE (*BKC) 100 UNITS/ML 17 UNITS SUB-Q (22:28)
[2024-11-27] MEDS: LATANOPROST 0.005% OP SOLN 2.5 ML BTL 1 DROP EACH EYE (22:29)
[2024-11-27] MEDS: APIXABAN 2.5 MG TABLET PO (22:29)
[2024-11-28] VITALS (11 sets, daily range): BP systolic 113–127; BP diastolic 40–57; PULSE 65–89; RESP 14–20; TEMP 36.7–36.8; O2SAT 90–95
--- NOTE | 2024-11-28 00:49 | ECG_ITS ---
Test Date: 2024-11-28 00:59:02 Measurements Intervals Speer Rate: 70 P: 26 [place]: 187 QRS: 18 QRSD: 110 T: 3 QT: 442 QTc: 477 Interpretive Statements SINUS RHYTHM WITH SINUS ARRHYTHMIA BORDERLINE ST-T WAVE ABNORMALITY- INFERIOR LEADS BORDERLINE ECG Compared to ECG 11/27/2024 12:52:02 Atrial fibrillation no longer present Electronically Signed On 11-28-2024 06:19:13 CDT by Michael Mccabe D.O.
[2024-11-28] MEDS: METOPROLOL SUCCINATE EXT REL 50 MG TABCR PO (02:13)
[2024-11-28 04:18] LABS: Hematocrit 25.1 % (42.0-52.0); Hemoglobin 8.8 g/dL (14.0-18.0); Immature Granulocyte Percent A 0.6 % (0-0.5); Lymphocytes Absolute Auto 0.71 K/mm3 (0.9-3.2); Mean Corpuscular HGB Conc 35.1 g/dl (32-36); Mean Corpuscular Hemoglobin 34.9 pg (26-34); Mean Corpuscular Volume 99.6 fl (80-100); Nucleated Red Blood Cells Absolute Auto 0.000 K/mm3 (0.0-0.012); Nucleated Red Blood Cells Perc 0.0 % (0.0-0.2); Platelet Count Result 182 k/mm3 (150-375); Red Blood Count 2.52 M/mm3 (4.6-6.20); White Blood Count 6.8 K/mm3 (4.5-10.0)
[2024-11-28 04:52] LABS: Anion Gap 6 mmol/L (4-12); Blood Urea Nitrogen 26 mg/dL (9-20); Calcium 8.5 mg/dL (8.4-10.2); Carbon Dioxide 32 mmol/L (22-30); Chloride 97 mmol/L (98-107); Estimated CRCL calculation 19 ml/min; Estimated Glomerular Filt Rate 19; Glucose 128 mg/dL (65-110); Potassium 4.2 mmol/L (3.4-5.0); Sodium 135 mmol/L (137-145)
--- NOTE | 2024-11-28 07:29 | PM.CNCAR ---
Assessment and Plan Assessment and plan (1) Paroxysmal A-fib: Code(s): I48.0 - Paroxysmal atrial fibrillation Status: Acute Plan This is an 84-year-old man with end-stage renal disease on hemodialysis also with a long history of paroxysmal AFib. He was recently started on amiodarone to try to maintain sinus rhythm. He was admitted from dialysis yesterday with an asymptomatic recurrence of his arrhythmia. Spontaneously he has been seen to go back into sinus rhythm. Explained to the patient that there amiodarone is agent with a very long half-life in many patients who are just being started on amiodarone will have recurrences like this for the 1st 1-3 months. If he has recurrences like this that are asymptomatic and hemodynamically well tolerated he does NOT have to be hospitalized repeatedly. I would recommend continuing amiodarone at 400 mg daily and he from my perspective he can be discharged. Appropriate/timely follow-up is already scheduled with my partner Dr. Araceli Bright MD [facility] History of Present Illness History of Present Illness Consult date/time: 11/28/24 07:29 Reason For Visit: afib with rvr Narrative: This is an 84-year-old man I am seeing at request of the hospitalist because of atrial fibrillation. He is known to Dr. Charles of our practice and has a history of paroxysmal atrial fibrillation. His principal comorbidity is end-stage renal disease dependent on hemodialysis for the last couple of years or so. He has had a number of cardioversions over the years. He was just in this hospital earlier this month for a recurrence of atrial fib with RVR. He was placed on amiodarone to try to maintain sinus rhythm and once again electrically cardioverted to sinus by Dr. Cuenca. He was discharged in sinus rhythm the well. Yesterday while he was going to hemodialysis it was noted that he was tachycardic and back in atrial fibrillation. With his AFib however he was hemodynamically stable, asymptomatic and unaware of his arrhythmia. His dialysis treatment was actually completed ab but then he was sent to the emergency room because of his recurrence of AFib. He was admitted to the IMU on telemetry. Subsequent to admission he has reverted back to sinus rhythm. He did state that he had some difficulty getting his amiodarone prescription filled and for a couple of days after discharge he was not taking it for that reason. He does have a supply at home now. He was discharged with a prescription to take 400 mg daily. He does have follow-up scheduled in January with Dr. Charles. He feels well at this time this morning and does not have any other complaints. He does not have any history of significant ischemic disease or valvular disease. Review of Systems Constitutional: Constitutional: Reports no additional constitutional complaints Eyes: Eyes: Reports no additional eye complaints ENT: Reports system reviewed and no additional complaints, except as documented Cardiovascular: Cardiovascular: Reports no additional cardiovascular complaints Respiratory: Respiratory: Reports no additional respiratory complaints Gastrointestinal: Gastrointestinal: Reports no additional gastrointestinal complaints Genitourinary: Genitourinary: Reports no additional male genitourinary complaints Musculoskeletal: Musculoskeletal: Reports no additional musculoskeletal complaints Integumentary/Breasts: Skin/Breast: Reports system reviewed and no additional complaints, except as docu Neurologic: Reports system reviewed and no additional complaints, except as documented Endocrine: Endocrine: Reports no additional endocrine complaints Hematologic/Lymphatic: Hematologic/Lymphatic: Reports no additional hematologic/lymphatic complaints Allergic/Immunologic: Allergic/Immunologic: Reports no additional allergic/immunologic complaints [facility] Past Medical History Medical History Obstructive sleep apnea End-stage renal disease on hemodialysis Insulin dependent diabetes mellitus Paroxysmal atrial fibrillation Hypertension Mitral valve regurgitation [id number] noted on RODNEY February 2020 Thrombus of left atrial appendage Duodenal ulcer disease Iron deficiency anemia Glaucoma Adenomatous colon polyp Chronic obstructive pulmonary disease Hyperlipidemia Primary osteoarthritis, unspecified site Surgical History Surgical History S/P dialysis catheter insertion History of cholecystectomy History of open reduction and internal fixation (ORIF) procedure (1977) repair of left lower extremity fracture History of cataract extraction with lens replacement History of right shoulder replacement (2010) History of bilateral knee replacement (2004) History of esophagogastroduodenoscopy (EGD) (12/2019) History of colonoscopy with polypectomy (12/2019) Family History Family History Mother Diabetes mellitus Heart disease Father Lung cancer Sibling Lung cancer Breast cancer Son , 52 years of age Drug abuse Social History Social History Social History: He is . His only son has passed. His great grandson jessica Reyes list with him and helps to take care from. Surrogate medical decision maker: bessie Lauren ([phone]). Code status: Full code. Smoking packs per day: 1 Smoking cigarettes per day: 20.0 Years smoked: 50 Smoking pack-years: 50.00 Smoking status: Former smoker Tobacco type: cigarettes Second hand tobacco smoke exposure: Yes Smoking end date: 02/07/02 Alcohol intake: never Substance use: never Substance use type: does not use Last use: 1999 Do You Feel Safe in your Home?: Yes Lack of Transportation: No Lack of Food: Never True Current Housing: I Have Housing Concerned About Future Housing: No Difficulty Paying Gas/Electric Bills: No Difficulty Paying for Meds: No Currently Unemployed: No Education: Grade School Difficulty w/ Childcare or Family Care: No Living arrangements: with family Additional living arrangements comments: Lives in [place]. His grandson whom he helped raised lives with him. Occupation/Education: retired Additional occupation/education comments: [employer] Spiritual care concerns: No Meds Home Medications and Allergies Home Medications ?Medication ?Instructions ?Recorded ?Confirmed ?Type furosemide 20 mg tablet 20 mg PO Q12H 04/27/19 11/27/24 History latanoprost 0.005 % eye drops 1 drop ophthalmic (eye) HS 04/27/19 11/27/24 History alcohol swabs (Alcohol Prep Pads) 1 pad topical TID #100 ea 05/13/22 11/27/24 Rx blood-glucose meter (OneTouch #1 ea 11/22/22 11/27/24 Rx Ultra2 Meter) blood sugar diagnostic (EasyMax #300 ea 04/13/23 11/27/24 Rx strips) pen needle, diabetic 32 gauge x #100 ea 11/07/23 11/27/24 Rx 5/32 (UltiCare Pen Needle) fluticasone fur. 100 mcg-umeclid See Rx Instructions .Route 11/14/23 11/27/24 Rx 62.5 mcg-vilant 25 mcg .COMPLEX #180 ea inhalat.powder (Trelegy Ellipta) amlodipine 5 mg tablet 10 mg PO DAILY 08/06/24 11/27/24 History diltiazem HCl 300 mg 300 mg PO DAILY 08/06/24 11/27/24 History capsule,extended release 24 hr (Cardizem CD) lancets 30 gauge (Easy Touch Twist #300 ea 09/27/24 11/27/24 Rx Lancets) alprazolam 0.5 mg tablet (Xanax) 0.5 mg PO BID PRN anxiety #60 tabs 10/29/24 11/27/24 Rx insulin glargine 100 unit/mL (3 See Rx Instructions .Route 11/19/24 11/27/24 Rx mL) subcutaneous pen (Lantus .COMPLEX #15 mL Solostar U-100 Insulin) hydralazine 25 mg tablet 25 mg PO Q12H 11/22/24 11/27/24 History amiodarone 200 mg tablet (Pacerone) 200 mg PO BID #60 tabs 11/23/24 11/27/24 Rx apixaban 2.5 mg tablet 2.5 mg PO Q12H 11/27/24 11/27/24 History atorvastatin 20 mg tablet 20 mg PO HS 11/27/24 11/27/24 History clonidine HCl 0.1 mg tablet 0.1 mg PO Q12H 11/27/24 11/27/24 History metoprolol succinate 50 mg 50 mg PO HS 11/27/24 11/27/24 History tablet,extended release 24 hr (Toprol XL) pantoprazole 40 mg tablet,delayed 40 mg PO Q12H 11/27/24 11/27/24 History release Allergies Allergy/AdvReac Type Severity Reaction Status Date / Time No Known Allergies Allergy Verified 11/27/24 18:34 Vital Signs Vital Signs - 24 hr 11/27/24 12:44 11/27/24 13:50 11/27/24 13:57 Temperature 36.6 C Pulse Rate 95 110 H Respiratory Rate 16 28 H 22 H Blood Pressure 127/78 118/81 Pulse Oximetry 92 96 97 Oxygen Delivery Room Air Room Air 11/27/24 13:57 11/27/24 14:02 11/27/24 14:22 Temperature Pulse Rate 102 H 120 H 106 H Respiratory Rate 20 17 17 Blood Pressure 110/66 117/80 115/74 Pulse Oximetry 98 97 95 Oxygen Delivery 11/27/24 14:31 11/27/24 14:35 11/27/24 14:47 Temperature Pulse Rate 119 H 116 H 100 Respiratory Rate 35 H 26 H Blood Pressure 115/74 105/68 124/77 Pulse Oximetry 96 94 Oxygen Delivery 11/27/24 14:52 11/27/24 14:57 11/27/24 15:00 Temperature Pulse Rate 95 109 H 101 H Respiratory Rate 21 H 19 26 H Blood Pressure 108/71 96/66 L Pulse Oximetry 96 94 97 Oxygen Delivery 11/27/24 15:02 11/27/24 15:07 11/27/24 15:12 Temperature Pulse Rate 98 104 H 105 H Respiratory Rate 17 23 H 23 H Blood Pressure 103/53 L 106/55 L 105/81 Pulse Oximetry 95 95 97 Oxygen Delivery 11/27/24 15:17 11/27/24 15:21 11/27/24 15:27 Temperature Pulse Rate 101 H 97 108 H Respiratory Rate 31 H 17 23 H Blood Pressure 93/61 L 105/70 100/68 Pulse Oximetry 99 97 97 Oxygen Delivery 11/27/24 15:32 11/27/24 18:12 11/27/24 18:35 Temperature 36.6 C Pulse Rate 91 95 Respiratory Rate 22 H Blood Pressure 102/59 L 113/69 Pulse Oximetry 100 97 Oxygen Delivery Room Air 11/27/24 20:00 11/27/24 20:00 11/27/24 20:00 Temperature 36.5 C Pulse Rate 86 85 109 H Respiratory Rate 18 Blood Pressure 102/56 L 102/56 L Pulse Oximetry 95 Oxygen Delivery 11/27/24 21:57 11/27/24 22:00 11/27/24 22:00 Temperature Pulse Rate 77 90 90 Respiratory Rate 18 Blood Pressure 112/60 112/60 Pulse Oximetry 96 Oxygen Delivery 11/28/24 00:00 11/28/24 00:00 11/28/24 00:00 Temperature 36.8 C Pulse Rate 89 78 66 Respiratory Rate 16 Blood Pressure 113/57 L 113/57 L Pulse Oximetry 95 Oxygen Delivery 11/28/24 02:00 11/28/24 02:04 11/28/24 02:13 Temperature Pulse Rate 73 72 71 Respiratory Rate Blood Pressure 119/48 L Pulse Oximetry Oxygen Delivery 11/28/24 04:00 11/28/24 04:00 11/28/24 05:55 Temperature 36.7 C Pulse Rate 69 67 65 Respiratory Rate 14 Blood Pressure 120/40 L Pulse Oximetry 94 Oxygen Delivery Exam Const: General: comfortable and no acute distress Other: Very pleasant obese gentleman no distress of any kind HENMT: Mouth: Yes moist mucous membranes Eyes: Sclera: sclerae normal Pupils: Equal, round and reactive pupils present Neck: Neck: supple and no JVD Resp: Effort & Inspection: normal respiratory effort Auscultation: clear to auscultation bilaterally Cardio: Rate: regular rate Rhythm: regular rhythm Other: PMI is not palpable no audible murmur or gallop GI: GI Palp: Yes Soft to palpation Auscultation: normal bowel sounds Skin: General skin exam: normal color Neuro: Other: Alert and oriented x3 Extrem: General: normal to inspection Other: No significant edema, adequate distal perfusion Results Labs and Meds 11/28/24 03:44 11/28/24 03:44 Lab results: Cardiac Enzymes 11/27/24 11/27/24 Range/Units 12:57 15:58 AST 28 (17-59) U/L Troponin I < 0.012 < 0.012 (0.000-0.034) ng/mL CBC 11/27/24 11/28/24 Range/Units 12:57 03:44 WBC 9.9 6.8 (4.5-10.0) K/mm3 RBC 2.84 L 2.52 L (4.6-6.20) M/mm3 Hgb 9.6 L 8.8 L (14.0-18.0) g/dL Hct 28.2 L 25.1 L (42.0-52.0) % Plt Count 196 182 (150-375) k/mm3 Lymph # (Auto) 0.86 L 0.71 L (0.9-3.2) K/mm3 Stark # (Auto) 0.6 0.6 (0.1-0.6) K/mm3 Eos # (Auto) 0.2 0.2 (0-0.3) K/mm3 Baso # (Auto) 0.1 0.1 (0.0-0.1) K/mm3 Comprehensive Metabolic Panel 11/27/24 11/28/24 Range/Units 12:57 03:44 Sodium 134 L 135 L (137-145) mmol/L Potassium 3.9 4.2 (3.4-5.0) mmol/L Chloride 93 L 97 L (98-107) mmol/L Carbon Dioxide 31 H 32 H (22-30) mmol/L BUN 19 D 26 H (9-20) mg/dL Creatinine 2.25 H 3.19 H (0.7-1.3) mg/dL Glucose 256 H 128 H (65-110) mg/dL Calcium 8.7 8.5 (8.4-10.2) mg/dL AST 28 (17-59) U/L ALT 25 (6-50) U/L Alkaline Phosphatase 109 (38-126) U/L Total Protein 7.2 (6.3-8.2) g/dL Albumin 4.0 (3.5-5.1) g/dL Intake and Output 11/27/24 11/27/24 11/28/24 15:59 23:59 07:59 Intake Total 537.4 140.3 Output Total 300 Balance 537.4 -159.7 Intake: IV 537.4 20.3 Sodium Chloride 0.9% IV 1,000 500 ml @ 999 mls/hr IV CONT .Q1H1M STA Rx#:[id number] dilTIAZem 100 MG/100 ML 100 mg 37.4 20.3 In 100 ml @ 5 MG/HR 5 mls/hr IV CONT .Q20H STA Rx#:[id number] Oral 120 Output: Urine 300 Patient Weight 11/28/24 23:59 Weight 106 kg
[2024-11-28] MEDS: FUROSEMIDE 20 MG TABLET PO (07:48)
[2024-11-28] MEDS: APIXABAN 2.5 MG TABLET PO (07:48)
[2024-11-28] MEDS: PANTOPRAZOLE 40 MG TABLET PO (07:48)
[2024-11-28] MEDS: FLUTICASONE/UMECLIDIN/VILANTER 100-62.5-25 MCG ELLIPTA 1 PUFF INHALATION (08:08)
--- NOTE | 2024-11-28 11:23 | P.PNIM_ITS ---
Progress Note: A&P Assessment and Plan (1) Paroxysmal A-fib: Code(s): I48.0 - Paroxysmal atrial fibrillation Status: Acute Assessment and Plan: Noted to have an elevated heart rate (120s) at his dialysis treatment today on 11/27. Recently here for paroxysmal AFib from 11/23-11/24. The patient was cardioverted on 11/23 and was discharged home on amiodarone. However he has not been able to fill his prescription for the past few days and missed 2 doses. Was able to take his 1st amiodarone dose yesterday on 11/26, high suspicion this is the cause of his recurrence. Given diltiazem IVP in the ED x2 and started on a diltiazem gtt >> continue at this time. Hold home amiodarone. Cardiology consulted. Telemetry monitoring. Continue Eliquis. --Resume home diltiazem and amiodrone (2) CHF (congestive heart failure): Qualifiers: Heart failure chronicity: unspecified Heart failure type: unspecified Qualified Code(s): I50.9 - Heart failure, unspecified Code(s): I50.9 - Heart failure, unspecified Status: Acute Assessment and Plan: Previous history of congestive heart failure. Last echo completed in February of 2024 which showed a normal LV systolic function with estimated EF of 65-70%. CXR completed on 11/27 which showed bibasilar atelectasis. - continue home Lasix, 20 mg b.i.d. as tolerated by a patient's blood pressure - patient noted to have ESRD on HD (3) Type 2 diabetes mellitus with hyperglycemia, with long-term current use of insulin: Code(s): E11.65 - Type 2 diabetes mellitus with hyperglycemia; Z79.4 - alf (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 of insulin Status: Chronic Assessment and Plan: - hypoglycemia protocol - POC blood glucose ACHS - home medication: pharmacy to adjust his long-acting insulin. - correct regimen ordered - high dose TIDWM, based off BMI - A1C 5.9% 11/22/2024 (4) ESRD on dialysis: Code(s): N18.6 - End stage renal disease; Z99.2 - Dependence on renal dialysis Status: Chronic Assessment and Plan: History of ESRD on hemodialysis Tuesdays, , and Saturdays. - will need nephrology consultation if admission extending to , 11/29 - monitor electrolytes (5) Hypertension: Qualifiers: Hypertension type: primary hypertension Qualified Code(s): I10 - Essential (primary) hypertension Code(s): I10 - Essential (primary) hypertension Status: Chronic Assessment and Plan: - chronic, currently 102/59. Suspect reduction in blood pressure related to Cardizem drip. Will hold patient's home antihypertensives (metoprolol, amlodipine, hydralazine, clonidine), resume when appropriate. - monitor (6) Hyperlipidemia: Qualifiers: Hyperlipidemia type: unspecified Qualified Code(s): E78.5 - Hyperlipidemia, unspecified Code(s): E78.5 - Hyperlipidemia, unspecified Status: Chronic Assessment and Plan: - continue atorvastatin 20 mg daily (7) Anxiety: Code(s): F41.9 - Anxiety disorder, unspecified Status: Acute Assessment and Plan: - continue patient's home alprazolam 0.5 mg b.i.d. p.r.n. (8) SALOME (obstructive sleep apnea): Code(s): G47.33 - Obstructive sleep apnea (adult) (pediatric) Status: Acute Assessment and Plan: - continue home CPAP Plan Diet: Diabetic GI Prophylaxis: N/a DVT Prophylaxis: Eliquis IV fluids: None Lines/Tubes: Peripheral IV, HD catheter to right chest Code Status: Full code Subjective Date/time seen: 11/28/24 11:23 Interval history: Stable from cardiology perspective Review of Systems Review of Systems: All systems reviewed & are unremarkable except as noted in HPI and below Objective Data Vital Signs Vital Signs: Vital Signs - 24 hr 11/27/24 12:44 11/27/24 13:50 11/27/24 13:57 Temperature 98 F Pulse Rate 95 110 H Respiratory Rate 16 28 H 22 H Blood Pressure 127/78 118/81 Pulse Oximetry 92 96 97 Oxygen Delivery Room Air Room Air 11/27/24 13:57 11/27/24 14:02 11/27/24 14:22 Temperature Pulse Rate 102 H 120 H 106 H Respiratory Rate 20 17 17 Blood Pressure 110/66 117/80 115/74 Pulse Oximetry 98 97 95 Oxygen Delivery 11/27/24 14:31 11/27/24 14:35 11/27/24 14:47 Temperature Pulse Rate 119 H 116 H 100 Respiratory Rate 35 H 26 H Blood Pressure 115/74 105/68 124/77 Pulse Oximetry 96 94 Oxygen Delivery 11/27/24 14:52 11/27/24 14:57 11/27/24 15:00 Temperature Pulse Rate 95 109 H 101 H Respiratory Rate 21 H 19 26 H Blood Pressure 108/71 96/66 L Pulse Oximetry 96 94 97 Oxygen Delivery 11/27/24 15:02 11/27/24 15:07 11/27/24 15:12 Temperature Pulse Rate 98 104 H 105 H Respiratory Rate 17 23 H 23 H Blood Pressure 103/53 L 106/55 L 105/81 Pulse Oximetry 95 95 97 Oxygen Delivery 11/27/24 15:17 11/27/24 15:21 11/27/24 15:27 Temperature Pulse Rate 101 H 97 108 H Respiratory Rate 31 H 17 23 H Blood Pressure 93/61 L 105/70 100/68 Pulse Oximetry 99 97 97 Oxygen Delivery 11/27/24 15:32 11/27/24 18:12 11/27/24 18:35 Temperature 97.9 F Pulse Rate 91 95 Respiratory Rate 22 H Blood Pressure 102/59 L 113/69 Pulse Oximetry 100 97 Oxygen Delivery Room Air 11/27/24 20:00 11/27/24 20:00 11/27/24 20:00 Temperature 97.7 F Pulse Rate 86 85 109 H Respiratory Rate 18 Blood Pressure 102/56 L 102/56 L Pulse Oximetry 95 Oxygen Delivery 11/27/24 21:57 11/27/24 22:00 11/27/24 22:00 Temperature Pulse Rate 77 90 90 Respiratory Rate 18 Blood Pressure 112/60 112/60 Pulse Oximetry 96 Oxygen Delivery 11/28/24 00:00 11/28/24 00:00 11/28/24 00:00 Temperature 98.3 F Pulse Rate 89 78 66 Respiratory Rate 16 Blood Pressure 113/57 L 113/57 L Pulse Oximetry 95 Oxygen Delivery 11/28/24 02:00 11/28/24 02:04 11/28/24 02:13 Temperature Pulse Rate 73 72 71 Respiratory Rate Blood Pressure 119/48 L Pulse Oximetry Oxygen Delivery 11/28/24 04:00 11/28/24 04:00 11/28/24 05:55 Temperature 98.0 F Pulse Rate 69 67 65 Respiratory Rate 14 Blood Pressure 120/40 L Pulse Oximetry 94 Oxygen Delivery 11/28/24 08:00 11/28/24 08:00 11/28/24 08:08 Temperature 98.2 F Pulse Rate 72 69 Respiratory Rate 20 Blood Pressure 126/51 L Pulse Oximetry 94 90 Oxygen Delivery Room Air Intake/Output Intake/Output: Intake & Output 11/25/24 11/26/24 11/27/24 11/28/24 23:59 23:59 23:59 23:59 Intake Total 537.4 380.3 Output Total 300 Balance 537.4 80.3 Meds/Results Medications: Active Medications Generic Name Dose Route Start Last Admin Trade Name Freq PRN Reason Stop Dose Admin Alprazolam 0.5 mg 11/27/24 21:50 Alprazolam (*Crx) 0.5 Mg Tablet PO BID PRN Anxiety Apixaban 2.5 mg 11/27/24 22:00 11/28/24 07:48 Apixaban 2.5 Mg Tablet PO 2.5 mg Q12HR FAISAL Administration Atorvastatin Calcium 20 mg 11/27/24 22:00 11/27/24 22:28 Atorvastatin 20 Mg Tablet PO 20 mg HS FAISAL Administration Dextrose 12.5 gm 11/27/24 17:49 Dextrose 50% 25 Gm/50 Ml Syringe IV PUSH PRN PRN Hypoglycemia Protocol Fluticasone/Umeclidinium/Vilanterol 1 puff 11/28/24 08:00 11/28/24 08:08 Fluticasone/Umeclidin/Vilanter 100-62.5-25 Mcg Ellipta INHALATION 1 puff DAILYRT FAISAL Administration Furosemide 20 mg 11/27/24 21:50 11/28/24 07:48 Furosemide 20 Mg Tablet PO 20 mg Q12HR FAISAL Administration Glucagon 1 mg 11/27/24 17:49 Glucagon For Inj 1 Mg Vial IM PRN PRN Hypoglycemia Protocol Glucose 15 gm 11/27/24 17:49 Glucose Oral Gel 15 Gm Of Glucse In 37.5 Gm Tube PO PRN PRN Hypoglycemia Protocol Dextrose 1,000 mls @ 100 mls/hr 11/27/24 17:49 Dextrose 5% 1,000 Ml IVPB PRN PRN Hypoglycemia Protocol Insulin Aspart 4 - 8 units 11/28/24 08:00 11/28/24 11:21 Insulin Aspart (*Bkc) 100 Units/Ml SUB-Q Not Given TIDWM [facility] Protocol Insulin Glargine 17 units 11/27/24 21:50 11/27/24 22:28 Insulin Glargine (*Bkc) 100 Units/Ml SUB-Q 17 units HS FAISAL Administration Latanoprost 1 drop 11/27/24 22:05 11/27/24 22:29 Latanoprost 0.005% Op Soln 2.5 Ml Btl EACH EYE 1 drop HS FAISAL Administration Metoprolol Succinate 50 mg 11/28/24 01:50 11/28/24 02:13 Metoprolol Succinate Ext Rel 50 Mg Tabcr PO 50 mg HS FAISAL Administration Pantoprazole Sodium 40 mg 11/27/24 21:50 11/28/24 07:48 Pantoprazole 40 Mg Tablet PO 40 mg Q12HR FAISAL Administration Radiology Results: ITS Impressions Chest X-Ray 11/27/24 13:57 Impression: 1: Bibasilar atelectasis. Labs Labs: Laboratory Results - last 24 hr 11/27/24 11/27/24 11/27/24 12:57 15:58 18:15 WBC 9.9 RBC 2.84 L Hgb 9.6 L Hct 28.2 L MCV 99.3 MCH 33.8 MCHC 34.0 RDW 13.2 Plt Count 196 MPV 8.9 Immature Gran % (Auto) 0.5 Neut % (Auto) 81.6 H Lymph % (Auto) 8.7 L Grady % (Auto) 6.4 Eos % (Auto) 2.1 Baso % (Auto) 0.7 Lymph # (Auto) 0.86 L Grady # (Auto) 0.6 Eos # (Auto) 0.2 Baso # (Auto) 0.1 Abs Immat Gran (auto) 0.05 H Absolute Neuts (auto) 8.1 H Absolute Nucleated RBC 0.000 Nucleated RBC % 0.0 Sodium 134 L Potassium 3.9 Chloride 93 L Carbon Dioxide 31 H Anion Gap 10 BUN 19 D Creatinine 2.25 H Estim Creat Clear Calc 27 Estimated GFR 28 L Glucose 256 H POC Capillary Glucose 124 H Calcium 8.7 Total Bilirubin 0.6 AST 28 ALT 25 Alkaline Phosphatase 109 Troponin I < 0.012 < 0.012 Total Protein 7.2 Albumin 4.0 Nasal MRSA (PCR) 11/27/24 11/27/24 11/28/24 18:50 19:51 03:44 WBC 6.8 RBC 2.52 L Hgb 8.8 L Hct 25.1 L MCV 99.6 MCH 34.9 H MCHC 35.1 RDW 13.2 Plt Count 182 MPV 9.2 Immature Gran % (Auto) 0.6 H Neut % (Auto) 77.0 H Lymph % (Auto) 10.5 L Grady % (Auto) 8.6 H Eos % (Auto) 2.4 Baso % (Auto) 0.9 Lymph # (Auto) 0.71 L Grady # (Auto) 0.6 Eos # (Auto) 0.2 Baso # (Auto) 0.1 Abs Immat Gran (auto) 0.04 H Absolute Neuts (auto) 5.2 Absolute Nucleated RBC 0.000 Nucleated RBC % 0.0 Sodium 135 L Potassium 4.2 Chloride 97 L Carbon Dioxide 32 H Anion Gap 6 BUN 26 H Creatinine 3.19 H Estim Creat Clear Calc 19 Estimated GFR 19 L Glucose 128 H POC Capillary Glucose 229 H Calcium 8.5 Total Bilirubin AST ALT Alkaline Phosphatase Troponin I Total Protein Albumin Nasal MRSA (PCR) Not detected 11/28/24 11/28/24 07:39 11:17 WBC RBC Hgb Hct MCV MCH MCHC RDW Plt Count MPV Immature Gran % (Auto) Neut % (Auto) Lymph % (Auto) Grady % (Auto) Eos % (Auto) Baso % (Auto) Lymph # (Auto) Grady # (Auto) Eos # (Auto) Baso # (Auto) Abs Immat Gran (auto) Absolute Neuts (auto) Absolute Nucleated RBC Nucleated RBC % Sodium Potassium Chloride Carbon Dioxide Anion Gap BUN Creatinine Estim Creat Clear Calc Estimated GFR Glucose POC Capillary Glucose 122 H 159 H Calcium Total Bilirubin AST ALT Alkaline Phosphatase Troponin I Total Protein Albumin Nasal MRSA (PCR) Quality VTE Prophylaxis VTE prophylaxis: pharmacologic ordered Hospitalist MIPS Advance Care Plan I have confirmed that the patient's Advanced Care Plan is present, code status is documented, or surrogate decision maker is listed in patient medical record.: Yes Medication Reconciliation I have utilized all available resources to obtain, update and review the patients current medications (includes all prescriptions, OTC, herbals, cannabis, and nutritional supplements).: Yes
--- NOTE | 2024-11-28 11:43 | P.DS_ITS ---
DS: Admitting Diagnosis Discharge Date 11/28/2024 Admitting Diagnosis Paroxysymal Afib DS: Discharge Diagnosis Discharge Diagnosis (1) Atrial fibrillation with RVR: Code(s): I48.91 - Unspecified atrial fibrillation Status: Acute DS: Summary Hospital Course Reason for hospitalization: Copied from [facility] 11/27: 84 y/o M with PMH of paroxysmal atrial fibrillation, hypertension, diabetes, CHF, iron deficiency anemia, COPD, hyperlipidemia, and ESRD on HD presents here with an elevated heart rate. The patient presents here via personal vehicle on 11/27 from his dialysis center for further evaluation of an elevated heart rate. The patient has a history of ESRD on HD () and was at his treatment today when he was informed he had an elevated heart rate in the 120s. Despite the tachycardia he was able to receive his full treatment of dialysis. The tachycardia is accompanied by shortness of breath, has been ongoing for the past 2-3 weeks, and has been mild except when he exerts himself. The patient has a history of paroxysmal AFib for which he was recently admitted from 11/22-11/23. During this admission he was cardioverted on the and discharged home on amiodarone. However the patient reports he has been unable to fill this prescription until yesterday afternoon around 5 pm, 1st dose taken at that time (missed two days). He follows with Dr. Charles for his cardiac care. Currently palpitations, chest pain, shortness of b reath, nausea, vomiting, or diaphoresis. Initial VS at presentation: 98? F, HR 95, R 16, 127/78, and 92% on RA. Tachycardic into the 119s. ED workup showed: No leukocytosis, hemoglobin 9.6 (at baseline), creatinine 2.25 and GFR 28, glucose 256, initial troponin negative x2. CXR showed bibasilar atelectasis. EKG showed AFib with RVR, rate 109. Hospital Course: Paroxysmal A-fib: A fib with RVR Noted to have an elevated heart rate (120s) at his dialysis treatment today on 11/27. Recently here for paroxysmal AFib from 11/23-11/24. The patient was cardioverted on 11/23 and was discharged home on amiodarone. However he has not been able to fill his prescription for the past few days and missed 2 doses. Was able to take his 1st amiodarone dose yesterday on 11/26, high suspicion this is the cause of his recurrence. Given diltiazem IVP in the ED x2 and started on a diltiazem gtt >> continue at this time. Held home amiodarone and then resumed. Telemetry monitoring, back in NSR. Continue Eliquis. Cardiology consulted and recommended continuing amdioarone 400mg daily and metoprolol CHF (congestive heart failure): Previous history of congestive heart failure. Last echo completed in February of 2024 which showed a normal LV systolic function with estimated EF of 65-70%. C XR completed on 11/27 which showed bibasilar atelectasis. - continue home Lasix, 20 mg b.i.d. as tolerated by a patient's blood pressure - patient noted to have ESRD on HD Type 2 diabetes mellitus with hyperglycemia, with long-term current use of insulin: - hypoglycemia protocol - POC blood glucose ACHS - home medication: pharmacy to adjust his long-acting insulin. - correct regimen ordered - high dose TIDWM, based off BMI - A1C 5.9% 11/22/2024 ESRD on dialysis: History of ESRD on hemodialysis Tuesdays, , and Saturdays. - Resume home dialysis - monitor electrolytes Hypertension: - chronic, currently 102/59. Suspect reduction in blood pressure related to Cardizem drip. Held patient's home antihypertensives (metoprolol, amlodipine, hydralazine, clonidine) and resumed all except hydralazine --Resume hydralazine at follow up Hyperlipidemia: - continue atorvastatin 20 mg daily Anxiety: - continue patient's home alprazolam 0.5 mg b.i.d. p.r.n. SALOME (obstructive sleep apnea): - continue home CPAP Status at Discharge Cognitive/behavioral status at discharge: A&Ox4 Time Spent with Patient Time attestation: Total time spent providing and/or coordinating discharge services: 57 minutes DS: Data Data Completed and Pending Labs on day of discharge: Labs from last 24 hours 11/28/24 11/28/24 11/28/24 11:17 07:39 03:44 WBC 6.8 RBC 2.52 L Hgb 8.8 L Hct 25.1 L MCV 99.6 MCH 34.9 H MCHC 35.1 RDW 13.2 Plt Count 182 MPV 9.2 Immature Gran % (Auto) 0.6 H Neut % (Auto) 77.0 H Lymph % (Auto) 10.5 L [place] % (Auto) 8.6 H Eos % (Auto) 2.4 Baso % (Auto) 0.9 Lymph # (Auto) 0.71 L [place] # (Auto) 0.6 Eos # (Auto) 0.2 Baso # (Auto) 0.1 Abs Immat Gran (auto) 0.04 H Absolute Neuts (auto) 5.2 Absolute Nucleated RBC 0.000 Nucleated RBC % 0.0 Sodium 135 L Potassium 4.2 Chloride 97 L Carbon Dioxide 32 H Anion Gap 6 BUN 26 H Creatinine 3.19 H Estim Creat Clear Calc 19 Estimated GFR 19 L Glucose 128 H POC Capillary Glucose 159 H 122 H Calcium 8.5 Total Bilirubin AST ALT Alkaline Phosphatase Troponin I Total Protein Albumin Nasal MRSA (PCR) 11/27/24 11/27/24 11/27/24 19:51 18:50 18:15 WBC RBC Hgb Hct MCV MCH MCHC RDW Plt Count MPV Immature Gran % (Auto) Neut % (Auto) Lymph % (Auto) [place] % (Auto) Eos % (Auto) Baso % (Auto) Lymph # (Auto) [place] # (Auto) Eos # (Auto) Baso # (Auto) Abs Immat Gran (auto) Absolute Neuts (auto) Absolute Nucleated RBC Nucleated RBC % Sodium Potassium Chloride Carbon Dioxide Anion Gap BUN Creatinine Estim Creat Clear Calc Estimated GFR Glucose POC Capillary Glucose 229 H 124 H Calcium Total Bilirubin AST ALT Alkaline Phosphatase Troponin I Total Protein Albumin Nasal MRSA (PCR) Not detected 11/27/24 11/27/24 15:58 12:57 WBC 9.9 RBC 2.84 L Hgb 9.6 L Hct 28.2 L MCV 99.3 MCH 33.8 MCHC 34.0 RDW 13.2 Plt Count 196 MPV 8.9 Immature Gran % (Auto) 0.5 Neut % (Auto) 81.6 H Lymph % (Auto) 8.7 L [place] % (Auto) 6.4 Eos % (Auto) 2.1 Baso % (Auto) 0.7 Lymph # (Auto) 0.86 L [place] # (Auto) 0.6 Eos # (Auto) 0.2 Baso # (Auto) 0.1 Abs Immat Gran (auto) 0.05 H Absolute Neuts (auto) 8.1 H Absolute Nucleated RBC 0.000 Nucleated RBC % 0.0 Sodium 134 L Potassium 3.9 Chloride 93 L Carbon Dioxide 31 H Anion Gap 10 BUN 19 D Creatinine 2.25 H Estim Creat Clear Calc 27 Estimated GFR 28 L Glucose 256 H POC Capillary Glucose Calcium 8.7 Total Bilirubin 0.6 AST 28 ALT 25 Alkaline Phosphatase 109 Troponin I < 0.012 < 0.012 Total Protein 7.2 Albumin 4.0 Nasal MRSA (PCR) Discharge Plan Discharge Attending physician on discharge: Raine Deng Consulting providers: Raine Deng; Vasquez Bright; Michael Mccabe; Yuli Mix; Genaro Moran Discharging Clinician: Raine Deng Anticipated Discharge Date/Time: 11/28/24 11:51 Patient Disposition: Home Activity: june shower Diet: heart healthy Discharge Instructions: Follow up with your PCP in 1-2 weeks. Follow up with cardiology as scheduled. Hold hydralazine until follow up with your outpatient providers Patient Instructions: A-fib (Atrial Fibrillation) (DC) Patient Language: Syriac Stand Alone Forms: General Discharge Information Follow-up/Referrals: Santi Roy MD [Primary Care Provider, Family Practice] - 2 Weeks Discharge Medications: New amiodarone 400 mg tablet 400 mg PO DAILY Qty: 90 0RF Continued amlodipine 5 mg tablet 10 mg PO DAILY diltiazem HCl [Cardizem CD] 300 mg capsule,extended release 24hr 300 mg PO DAILY furosemide 20 mg tablet 20 mg PO Q12H latanoprost 0.005 % drops 1 drop EACH EYE HS Rx Instructions: install 1 drop in each eye @ bedtime clonidine HCl 0.1 mg tablet 0.1 mg PO Q12H atorvastatin 20 mg tablet 20 mg PO HS metoprolol succinate [Toprol XL] 50 mg tablet extended release 24 hr 50 mg PO HS pantoprazole 40 mg tablet,delayed release (DR/EC) 40 mg PO Q12H apixaban 2.5 mg tablet 2.5 mg PO Q12H alcohol swabs [Alcohol Prep Pads] Pads, Medicated 1 pad topical TID Qty: 100 3RF (DME) blood-glucose meter [Carticipateuch Ultra2 Meter] Misc See Rx Instructions .ROUTE .COMPLEX Qty: 1 0RF Dose Instruction: USE DIRECTED TO TEST 3 TIMES DAILY Rx Instructions: USE DIRECTED TO TEST 3 TIMES DAILY (DME) EasyMax Strip See Rx Instructions .ROUTE .COMPLEX Qty: 300 3RF Dose Instruction: TESTS 3X PER DAY Rx Instructions: TESTS 3X PER DAY (DME) pen needle, diabetic [UltiCare Pen Needle] 32 gauge x 5/32 needle See Rx Instructions .ROUTE .MEDSUPPLY Qty: 100 4RF Rx Instructions: As directed to administer insulin once daily Trelegy Ellipta 100-62.5-25 mcg blister with device See Rx Instructions .ROUTE .COMPLEX Qty: 180 3RF Dose Instruction: USE 1 INHALATION DAILY Rx Instructions: USE 1 INHALATION DAILY. Rinse mouth and spit after each use (DME) lancets [Easy Touch Twist Lancets] 30 gauge misc See Rx Instructions .Route Qty: 300 3RF Rx Instructions: test tid alprazolam [Xanax] 0.5 mg tablet 0.5 mg PO BID PRN (Reason: anxiety) Qty: 60 0RF Discontinued hydralazine 25 mg tablet 25 mg PO Q12H amiodarone [Pacerone] 200 mg Tablet 200 mg PO BID Qty: 60 0RF No Action insulin glargine [Lantus Solostar U-100 Insulin] 100 unit/mL (3 mL) insulin pen See Rx Instructions .ROUTE .COMPLEX Qty: 15 1RF Dose Instruction: INJECT 10 UNITS UNDER THE SKIN AT BEDTIME Rx Instructions: INJECT 15 UNITS UNDER THE SKIN AT BEDTIME Date of admission: 11/27/24 15:36 Primary Care Provider: Santi Roy Admitting Provider: Mike Shah Attending physician on admission: Raine Deng Condition: Stable Quality VTE Prophylaxis VTE prophylaxis: pharmacologic ordered Hospitalist MIPS Heart Failure (Exclusion) Patient has history of Heart Transplant or Left Ventricular Assistive Device?: No IF YES, STOP HERE Heart Failure (Qualifier) Patient has current or prior documentation of LVEF less than or equal to 40%, or mod/servere depressed LVSF?: No IF NO, STOP HERE
--- NOTE | 2024-11-28 14:37 | PC.NURSE ---
On 11/28/24, the student, [Caleb Salmon ], provided care and completed [facility] documentation on this patient. I have reviewed the student's documentation and agree with the findings.
== END 2024-11-28 14:16 | disposition home or self-care (01) | DRG 308 ==
LOC: ANHED 13:53 → ANHIMU 17:04
PROVIDERS: Emergency Medicine; Student in an Organized Health Care Education/Training Program; Admitting Provider Internal Medicine; Emergency Provider Student in an Organized Health Care Education/Training Program; PCP Family Medicine; Visit Provider Nurse Practitioner Acute Care
DX: I48.0 Paroxysmal atrial fibrillation (principal); N18.6 End stage renal disease; E87.1 Hypo-osmolality and hyponatremia; I13.11 Hypertensive heart and chronic kidney disease without heart failure, with stage 5 chronic kidney disease, or end stage renal disease; I50.9 Heart failure, unspecified; D50.9 Iron deficiency anemia, unspecified; E11.22 Type 2 diabetes mellitus with diabetic chronic kidney disease; E11.65 Type 2 diabetes mellitus with hyperglycemia; D63.1 Anemia in chronic kidney disease; G47.33 Obstructive sleep apnea (adult) (pediatric); I34.0 Nonrheumatic mitral (valve) insufficiency; E78.5 Hyperlipidemia, unspecified; J44.9 Chronic obstructive pulmonary disease, unspecified; M19.91 Primary osteoarthritis, unspecified site; F41.9 Anxiety disorder, unspecified; H40.9 Unspecified glaucoma; E66.9 Obesity, unspecified; Z96.653 Presence of artificial knee joint, bilateral; Z96.611 Presence of right artificial shoulder joint; Z96.1 Presence of intraocular lens; Z99.2 Dependence on renal dialysis; Z79.51 Long term (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 of inhaled steroids; Z79.4 Long term (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 of insulin; Z99.89 Dependence on other enabling machines and devices; Z91.148 Patient's other noncompliance with medication regimen for other reason; Z68.33 Body mass index [BMI] 33.0-33.9, adult; Z87.891 Personal history of nicotine dependence; Z79.01 Long term (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 of anticoagulants; Z87.19 Personal history of other diseases of the digestive system; Z86.0101 Personal history of adenomatous and serrated colon polyps; Z90.49 Acquired absence of other specified parts of digestive tract
CPT/HCPCS: 36415; 71045; 80048; 80053; 82948; 84484; 85025; 87641; 93005; 94640; 96365; 99285; A9270; J1163; J1815; J7030